=== PATIENT | female | born 1940 | race Caucasian/White ===

== ENCOUNTER 2016-11-13 11:26 | Emergency (ER) | payer MEDICARE ==
[2016-11-13 11:40] VITALS: TEMP 96.8
--- NOTE | 2016-11-13 12:02 | ED ---
Eye Problem HPI - General Chief complaint: Eye Problems Stated complaint: eye pain Time Seen by Provider: 11/13/16 11:55 Source: patient, RN notes reviewed Mode of arrival: ambulatory Limitations: no limitations - History of Present Illness Initial comments: 76-year-old female presented emergency department chief complaint bilateral eye irritation. Patient states that she feels irritation along the eyelids. She states that she's had no blurred vision no pain with ocular movements no pain of actual eye. She states she feels along the eyelids primarily. She has had blood work tearing, drainage. Patient states she's noticed some redness now. Patient states that she's been tried some Visine she gets a little relief but very minimal. Patient denies any new products denies any new soaps or lotions didn't any new makeup. - Related Data Previous Rx's Medication Instructions Recorded Tobramycin [Tobrex 0.3% Ophth Soln] 1 drop BOTH EYES Q4HR #5 ml 11/13/16 Allergies Allergy/AdvReac Type Severity Reaction Status Date / Time Penicillins Allergy Unknown Verified 11/13/16 11:41 propofol Allergy Unknown Verified 11/13/16 11:41 sulfamethoxazole Allergy Unknown Verified 11/13/16 11:41 [From Bactrim] trimethoprim [From Bactrim] Allergy Unknown Verified 11/13/16 11:41 Review of Systems ROS Statement: Those systems with pertinent positive or pertinent negative responses have been documented in the HPI. ROS Other: All systems not noted in ROS Statement are negative. Past Medical History Past Medical History: Heart Failure, Diabetes Mellitus, Hypertension, Myocardial Infarction ([place]) Additional Past Medical History / Comment(s): hypothyrodism, Kidney failure, neuropathy. History of Any Multi-Drug Resistant Organisms: None Reported Past Surgical History: Cholecystectomy, Tonsillectomy Additional Past Surgical History / Comment(s): Defibrillator, pacemaker Past Psychological History: No Psychological Hx Reported Smoking Status: Never smoker Past Alcohol Use History: None Reported Past Drug Use History: None Reported General Exam Limitations: no limitations General appearance: alert, in no apparent distress Head exam: Present: atraumatic, normocephalic, normal inspection Eye exam: Present: PERRL, EOMI, conjunctival injection (Minimal), other (Mild erythema of the eyelids). Absent: normal appearance, scleral icterus, periorbital swelling ENT exam: Present: normal exam, normal oropharynx, mucous membranes moist, TM's normal bilaterally, normal external ear exam Neck exam: Present: normal inspection, full ROM. Absent: tenderness, meningismus, lymphadenopathy Respiratory exam: Present: normal lung sounds bilaterally. Absent: respiratory distress, wheezes, rales, rhonchi, stridor Cardiovascular Exam: Present: regular rate, normal rhythm, normal heart sounds. Absent: systolic murmur, diastolic murmur, rubs, gallop, clicks Course Vital Signs 11/13/16 11:38 Temperature 96.8 F L Pulse Rate 65 Respiratory 16 Rate Blood Pressure 132/56 O2 Sat by Pulse 99 Oximetry Medical Decision Making - Medical Decision Making 76-year-old female presented emergency department for eye irritation. Patient does have mild or edema and injection. She's had no visual changes denies any ocular pain patient has good ocular movements. Patient will be discharged at this time and follow-up with engineering and development director. Disposition Clinical Impression: Bacterial conjunctivitis Disposition: HOME SELF-CARE Condition: Stable Instructions: Conjunctivitis (ED) Additional Instructions: Please return to the Emergency Department if symptoms worsen or any other concerns. Prescriptions: Tobramycin [Tobrex 0.3% Ophth Soln] 1 drop BOTH EYES Q4HR #5 ml Referrals: Giovanny Cesar MD [Primary Care Provider] - 1-2 days Bobby Jack MD [STAFF PHYSICIAN] - 1-2 days Time of Disposition: 12:02
[2016-11-13 12:25] VITALS: BP 138/68; PULSE 70; RESP 18
== END 2016-11-13 12:25 | disposition home or self-care (01) ==
LOC: EC 11:26
DX: H10.89 Other conjunctivitis (principal); Z88.0 Allergy status to penicillin; Z88.1 Allergy status to other antibiotic agents; Z88.2 Allergy status to sulfonamides; Z88.4 Allergy status to anesthetic agent
CPT/HCPCS: 99283

== ENCOUNTER → 2016-11-24 | Outpatient (CLI) | payer MEDICARE ==
--- NOTE | 2016-11-24 13:34 | US ---
EXAMINATION TYPE: US venous doppler duplex LE LT DATE OF EXAM: 11/24/2016 12:52 PM COMPARISON: NONE CLINICAL HISTORY: M79.662 Pain, R22.42 Swelling. Left leg pain/ Pt states history of PE and left leg DVT 2 yrs ago/ Pt currently on blood thinnners SIDE PERFORMED: Left VESSELS IMAGED: External Iliac Vein (EIV) Common Femoral Vein Deep Femoral Vein Greater Saphenous Vein * Femoral Vein Popliteal Vein Small Saphenous Vein * Proximal Calf Veins (* superficial vessels) TECHNOLOGIST IMPRESSION: wnl Left Leg: No evidence of acute DVT/ Chronic, non-occluding thrombus seen extending throughout left l eg/ Probable Ding's Cyst left pop fossa= 5.1 x0.9 x 2.0 cm Results called to Anika at 's office at time of exam IMPRESSION: 1. No deep venous thrombosis left lower extremity. 2. Popliteal cyst.
== END | disposition home or self-care (01) ==
LOC: RADUSWWP 12:20
PROVIDERS: ATTEND Internal Medicine
DX: M71.22 Synovial cyst of popliteal space [Baker], left knee (principal)

== ENCOUNTER 2017-04-23 15:04 | Inpatient (IN) | payer MEDICARE ==
[2017-04-23] MEDS ORDERED: NITROGLYCERIN OINT 1 INCH/GM PACKET TOPICAL STA (15:23)
[2017-04-23] MEDS ORDERED: ASPIRIN 81 MG CHEW PO STA (15:23)
--- NOTE | 2017-04-23 15:26 | ED ---
General Adult HPI - General Chief complaint: Chest Pain Stated complaint: Chest Pain Time Seen by Provider: 04/23/17 15:11 Source: patient, EMS, RN notes reviewed Mode of arrival: EMS Limitations: no limitations - History of Present Illness Initial comments: Patient is a pleasant 76-year-old female presenting to the emergency department complaining of chest discomfort. Symptoms have been present around 5 or 6 days. Patient had onset on Tuesday with vomiting. No nausea or vomiting since that time. On Tuesday patient did have some radiation towards her back. No radiation since that time. Discomfort is sternal and mild, currently rated 2/ 10. Discomfort feels like an ache. No associated dyspnea or diaphoresis. No leg pain or swelling. No cough or fever. Patient does have a history of previous cardiac problems. Patient has had CABG - Related Data Home Medications Medication Instructions Recorded Confirmed Allopurinol [Zyloprim] 300 mg PO DAILY 04/18/17 04/23/17 Apixaban [Eliquis] 5 mg PO BID 04/18/17 04/23/17 Aspirin [Adult Low Dose Aspirin EC] 81 mg PO DAILY 04/18/17 04/23/17 Atorvastatin [Lipitor] 40 mg PO HS 04/18/17 04/23/17 Furosemide [Lasix] 40 mg PO BID 04/18/17 04/23/17 HYDROcodone/APAP 7.5-325MG [[place] 1 tab PO TID PRN 04/18/17 04/23/17 7.5-325] Isosorbide Mononitrate ER [Imdur] 60 mg PO DAILY 04/18/17 04/23/17 Levothyroxine Sodium 25 mcg PO DAILY 04/18/17 04/23/17 Lisinopril [Zestril] 10 mg PO DAILY 04/18/17 04/23/17 Metoprolol Tartrate [Lopressor] 50 mg PO BID 04/18/17 04/23/17 Nitroglycerin Sl Tabs [Nitrostat] 0.4 mg SUBLINGUAL Q5M PRN 04/18/17 04/23/17 Omeprazole 20 mg PO DAILY 04/18/17 04/23/17 Pregabalin [Lyrica] 50 mg PO HS 04/18/17 04/23/17 glipiZIDE [Glucotrol] 5 mg PO BID 04/18/17 04/23/17 metFORMIN HCL [Glucophage] 500 mg PO BID 04/18/17 04/23/17 Allergies Allergy/AdvReac Type Severity Reaction Status Date / Time Penicillins Allergy Unknown Verified 04/23/17 15:48 propofol Allergy Unknown Verified 04/23/17 15:48 sulfamethoxazole Allergy Rash/Hives Verified 04/23/17 15:48 [From Bactrim] trimethoprim [From Bactrim] Allergy Rash/Hives Verified 04/23/17 15:48 Review of Systems ROS Statement: Those systems with pertinent positive or pertinent negative responses have been documented in the HPI. ROS Other: All systems not noted in ROS Statement are negative. Constitutional: Denies: fever Eyes: Denies: eye pain ENT: Denies: ear pain Respiratory: Denies: cough Cardiovascular: Reports: chest pain Endocrine: Denies: fatigue Gastrointestinal: Denies: abdominal pain Genitourinary: Denies: dysuria Musculoskeletal: Denies: arthralgia Skin: Denies: rash Past Medical History Past Medical History: Heart Failure, Diabetes Mellitus, Hypertension, Myocardial Infarction ([place]) Additional Past Medical History / Comment(s): hypothyrodism, Kidney failure, neuropathy. Last Myocardial Infarction Date:: 1994 History of Any Multi-Drug Resistant Organisms: None Reported Past Surgical History: Cholecystectomy, Coronary Bypass/CABG, Heart Catheterization With Stent, Pacemaker, Tonsillectomy Additional Past Surgical History / Comment(s): Defibrillator, pacemaker Past Anesthesia/Blood Transfusion Reactions: No Reported Reaction Additional Past Anesthesia/Blood Transfusion Reaction / Comment(s): allergic to propofol Date of Last Stent Placement:: 1994 Type of Cardiac Device: Permanent Pacemaker Device Placement Date:: 2011 Past Psychological History: No Psychological Hx Reported Smoking Status: Never smoker Past Alcohol Use History: None Reported Past Drug Use History: None Reported - Past Family History Mother Family Medical History: CVA/TIA Additional Family Medical History / Comment(s): at age 43 of a stroke Father Family Medical History: Diabetes Mellitus Additional Family Medical History / Comment(s): age 81 General Exam Limitations: no limitations General appearance: alert, in no apparent distress Head exam: Present: atraumatic Eye exam: Present: normal appearance, PERRL ENT exam: Present: normal oropharynx Neck exam: Present: normal inspection Respiratory exam: Present: normal lung sounds bilaterally. Absent: chest wall tenderness Cardiovascular Exam: Present: regular rate, normal rhythm Expanded Peripheral pulses: 2+: Radial (R), Radial (L), Posterior Tibialis (R), Posterior Tibialis (L) GI/Abdominal exam: Present: soft. Absent: tenderness Extremities exam: Present: normal inspection. Absent: pedal edema, calf tenderness Back exam: Present: normal inspection. Absent: tenderness Neurological exam: Present: alert Psychiatric exam: Present: normal affect, normal mood Skin exam: Present: normal color Course Vital Signs 04/23/17 04/23/17 04/23/17 15:06 15:19 16:19 Temperature 97.3 F L Pulse Rate 66 66 Pulse Rate [ 70 Right Radial] Respiratory 20 18 Rate Blood Pressure 129/64 111/56 O2 Sat by Pulse 100 98 Oximetry EKG Findings - EKG Comments: EKG Findings:: Sinus rhythm at 67. First-degree AV block AR of 260. QRS 116. QT 436. QTc 460. Normal axis. Septal Q waves. Nonspecific ST-T. Previous EKG reviewed dated November 112011. Medical Decision Making - Medical Decision Making Patient reevaluated and resting comfortably in bed. No discomfort at this time. Patient and family updated on results and plan. Case was discussed in detail with Dr. Harrington, who will admit for Dr. Cesar. - Lab Data Result diagrams: 04/23/17 15:22 04/23/17 15:22 Lab Results 04/23/17 04/23/17 04/23/17 Range/Units 15:22 15:22 15:22 WBC 9.0 (3.8-10.6) k/uL RBC 3.25 L (3.80-5.40) m/uL Hgb 10.9 L (11.4-16.0) gm/dL Hct 33.4 L (34.0-46.0) % MCV 102.9 H (80.0-100.0) fL MCH 33.5 (25.0-35.0) pg MCHC 32.5 (31.0-37.0) g/dL RDW 17.1 H (11.5-15.5) % Plt Count 148 L (150-450) k/uL Neutrophils % 78 % Lymphocytes % 14 % Monocytes % 4 % Eosinophils % 2 % Basophils % 0 % Neutrophils # 7.0 (1.3-7.7) k/uL Lymphocytes # 1.3 (1.0-4.8) k/uL Monocytes # 0.4 (0-1.0) k/uL Eosinophils # 0.1 (0-0.7) k/uL Basophils # 0.0 (0-0.2) k/uL Anisocytosis Slight Macrocytosis Moderate PT (9.0-12.0) sec INR (<1.2) APTT (22.0-30.0) sec D-Dimer (<0.60) mg/L FEU Sodium 143 (137-145) mmol/L Potassium 4.3 (3.5-5.1) mmol/L Chloride 108 H (98-107) mmol/L Carbon Dioxide 20 L (22-30) mmol/L Anion Gap 15 mmol/L BUN 49 H (7-17) mg/dL Creatinine 1.30 H (0.52-1.04) mg/dL Est GFR (MDRD) Af Amer 48 (>60 ml/min/1.73 sqM) Est GFR (MDRD) Non-Af 40 (>60 ml/min/1.73 sqM) Glucose 173 H (74-99) mg/dL Calcium 8.4 (8.4-10.2) mg/dL Magnesium 0.7 L* (1.6-2.3) mg/dL Total Bilirubin 0.7 (0.2-1.3) mg/dL AST 26 (14-36) U/L ALT 29 (9-52) U/L Alkaline Phosphatase 48 (38-126) U/L Total Creatine Kinase 47 (30-135) U/L CK-MB (CK-2) 1.0 (0.0-2.4) ng/mL CK-MB (CK-2) Rel Index 2.1 Troponin I <0.012 (0.000-0.034) ng/mL Total Protein 6.1 L (6.3-8.2) g/dL Albumin 3.6 (3.5-5.0) g/dL Amylase 67 (30-110) U/L Lipase 391 H (23-300) U/L 04/23/17 Range/Units 15:22 WBC (3.8-10.6) k/uL RBC (3.80-5.40) m/uL Hgb (11.4-16.0) gm/dL Hct (34.0-46.0) % MCV (80.0-100.0) fL MCH (25.0-35.0) pg MCHC (31.0-37.0) g/dL RDW (11.5-15.5) % Plt Count (150-450) k/uL Neutrophils % % Lymphocytes % % Monocytes % % Eosinophils % % Basophils % % Neutrophils # (1.3-7.7) k/uL Lymphocytes # (1.0-4.8) k/uL Monocytes # (0-1.0) k/uL Eosinophils # (0-0.7) k/uL Basophils # (0-0.2) k/uL Anisocytosis Macrocytosis PT 11.8 (9.0-12.0) sec INR 1.2 H (<1.2) APTT 24.4 (22.0-30.0) sec D-Dimer 0.42 (<0.60) mg/L FEU Sodium (137-145) mmol/L Potassium (3.5-5.1) mmol/L Chloride (98-107) mmol/L Carbon Dioxide (22-30) mmol/L Anion Gap mmol/L BUN (7-17) mg/dL Creatinine (0.52-1.04) mg/dL Est GFR (MDRD) Af Amer (>60 ml/min/1.73 sqM) Est GFR (MDRD) Non-Af (>60 ml/min/1.73 sqM) Glucose (74-99) mg/dL Calcium (8.4-10.2) mg/dL Magnesium (1.6-2.3) mg/dL Total Bilirubin (0.2-1.3) mg/dL AST (14-36) U/L ALT (9-52) U/L Alkaline Phosphatase (38-126) U/L Total Creatine Kinase (30-135) U/L CK-MB (CK-2) (0.0-2.4) ng/mL CK-MB (CK-2) Rel Index Troponin I (0.000-0.034) ng/mL Total Protein (6.3-8.2) g/dL Albumin (3.5-5.0) g/dL Amylase (30-110) U/L Lipase (23-300) U/L - Radiology Data Radiology results: image reviewed (Chest x-ray shows chronic changes without acute process.) Disposition Clinical Impression: Chest pain, Hypomagnesemia Disposition: ADMITTED IP TO THIS HOSP Referrals: Giovanny Cesar MD [Primary Care Provider] - 1-2 days Decision Time: 16:26
[2017-04-23 15:36] LABS: Anisocytosis Slight; Basophils % (A) 0 %; CH 34.1; CHCM 33.3; Eosinophils # (A) 0.1 k/uL (0-0.7); Eosinophils % (A) 2 %; HCT 33.4 % (34.0-46.0); HDW 3.35; HGB 10.9 gm/dL (11.4-16.0); Luc # (Auto) 0.18; Luc % (Auto) 2; Lymphocytes # (A) 1.3 k/uL (1.0-4.8); Lymphocytes % (A) 14 %; MCH 33.5 pg (25.0-35.0); MCHC 32.5 g/dL (31.0-37.0); MCV 102.9 fL (80.0-100.0); Macrocytosis Moderate; Mean Platelet Volume 8.1; Monocytes # (A) 0.4 k/uL (0-1.0); Monocytes % (A) 4 %; Neutrophils % (A) 78 %; RBC 3.25 m/uL (3.80-5.40); RDW 17.1 % (11.5-15.5); WBC (Perox) 9.39
[2017-04-23 15:47] LABS: Calcium 8.4 mg/dL (8.4-10.2); Potassium 4.3 mmol/L (3.5-5.1); Total Bilirubin 0.7 mg/dL (0.2-1.3); Total Protein 6.1 g/dL (6.3-8.2)
[2017-04-23 15:49] LABS: INR 1.2 (<1.2); Partial Thromboplastin Time 24.4 sec (22.0-30.0); Prothrombin Time 11.8 sec (9.0-12.0)
[2017-04-23] MEDS ORDERED: MAGNESIUM OXIDE 400 MG TAB PO STA (15:50)
[2017-04-23 15:53] LABS: Magnesium 0.7 mg/dL (1.6-2.3)
[2017-04-23 15:56] LABS: Creatine Kinase 47 U/L (30-135)
--- NOTE | 2017-04-23 15:57 | XR ---
EXAMINATION TYPE: XR chest 2V DATE OF EXAM: 04/23/2017 COMPARISON: Chest x-ray April 26, 2010. HISTORY: Left-sided chest pain. TECHNIQUE: Frontal and lateral views of the chest are obtained. FINDINGS: Post-CABG changes with mediastinal clips and sternal wires is redemonstrated. There is no f ocal air space opacity, pleural effusion, or pneumothorax seen. The cardiac silhouette size is enlar ged with atherosclerotic change in aortic knob. There is dual lead pacemaker/AICD. The osseous struc tures are demineralized. Multilevel spurring in the spine is redemonstrated. IMPRESSION: Chronic parenchymal changes and cardiomegaly without acute pulmonary process.
[2017-04-23 16:09] LABS: Troponin I <0.012 ng/mL (0.000-0.034)
[2017-04-23] MEDS: MAGNESIUM SULFATE-D5W PMX 1 GM in DEXTROSE/WATER 1 100ML.BAG IVPB SCH ×3 (16:14→18:47)
[2017-04-23] MEDS ORDERED: NITROGLYCERIN SL TABS 0.4 MG TAB SUBLINGUAL PRN (16:33)
[2017-04-23] MEDS: MAGNESIUM OXIDE 400 MG TAB PO SCH ×2 (16:43→21:24)
[2017-04-23 17:03] LABS: Glucose,Whole Blood 187 mg/dL (75-99)
[2017-04-23] MEDS: metFORMIN 500 MG TAB PO SCH (19:00)
[2017-04-23] MEDS: NITROGLYCERIN OINT 1 INCH/GM PACKET TOPICAL SCH (19:00)
[2017-04-23] MEDS: FUROSEMIDE 40 MG TAB PO SCH (19:00)
[2017-04-23] MEDS: glipiZIDE 5 MG TAB PO SCH (19:00)
[2017-04-23 21:07] LABS: Glucose,Whole Blood 140 mg/dL (75-99)
[2017-04-23] MEDS: APIXABAN 5 MG TAB PO SCH (21:24)
[2017-04-23] MEDS: ATORVASTATIN 40 MG TAB PO SCH (21:24)
[2017-04-23] MEDS: METOPROLOL TARTRATE 50 MG TAB PO SCH (21:24)
[2017-04-23 22:19] LABS: Troponin I 0.016 ng/mL (0.000-0.034)
[2017-04-24] MEDS: NITROGLYCERIN OINT 1 INCH/GM PACKET TOPICAL SCH ×4 (00:39→17:21)
[2017-04-24 04:16] LABS: Magnesium 1.5 mg/dL (1.6-2.3)
[2017-04-24 04:43] LABS: Creatine Kinase MB 0.8 ng/mL (0.0-2.4); Troponin I 0.015 ng/mL (0.000-0.034)
[2017-04-24] MEDS ORDERED: Magnesium Replacement Protocol 1 EACH MISC MISCELLANE PRN (05:11)
[2017-04-24] MEDS: MAGNESIUM SULFATE-D5W PMX 1 GM in DEXTROSE/WATER 1 100ML.BAG IVPB SCH ×2 (05:58→08:04)
[2017-04-24 06:18] LABS: Glucose,Whole Blood 97 mg/dL (75-99)
[2017-04-24] MEDS: glipiZIDE 5 MG TAB PO SCH ×2 (07:16→17:21)
[2017-04-24] MEDS: LEVOTHYROXINE 25 MCG TAB PO SCH (07:16)
[2017-04-24] MEDS: PANTOPRAZOLE 40 MG TABLET PO SCH (07:16)
[2017-04-24] MEDS: metFORMIN 500 MG TAB PO SCH (07:16)
[2017-04-24] MEDS: FUROSEMIDE 40 MG TAB PO SCH ×2 (08:42→15:42)
[2017-04-24] MEDS: MAGNESIUM OXIDE 400 MG TAB PO SCH ×3 (08:42→21:07)
[2017-04-24] MEDS: METOPROLOL TARTRATE 50 MG TAB PO SCH ×2 (08:42→21:07)
[2017-04-24] MEDS: APIXABAN 5 MG TAB PO SCH ×2 (08:42→21:07)
[2017-04-24] MEDS: ASPIRIN 325 MG TAB PO SCH (08:42)
[2017-04-24] MEDS: LISINOPRIL 5 MG TAB PO SCH (08:42)
[2017-04-24] MEDS ORDERED: ISOSORBIDE MONONITRATE ER 60 MG TAB.ER.24H PO SCH (09:00)
--- NOTE | 2017-04-24 11:31 | P.CRDCN ---
History of Present Illness Consult date: 04/24/17 Chief complaint: Chest pain History of present illness: This is a pleasant 76-year-old female patient who sees Dr. Wall as an outpatient with a known history of CAD and prior CABG as well as a stenting with unknown details at this point, ischemic cardiomyopathy, status post ICD, as well as multiple comorbidities, presented to the hospital complaining of chest discomfort. She was in her usual state of health to the last week when she experienced multiple episodes of vomiting. The following day she was having chest discomfort as a sharp kind of discomfort on the left side of the chest without any radiation to the arm or neck or shoulders and without any associated symptoms. She underwent an EKG which showed sinus rhythm with prior old anterior septal MT. The cardiac enzymes were checked and came in to be unremarkable. Past Medical History Past Medical History: Atrial Fibrillation, Heart Failure, Diabetes Mellitus, Hypertension, Myocardial Infarction ([place]) Additional Past Medical History / Comment(s): hypothyrodism, Kidney failure, neuropathy. Last Myocardial Infarction Date:: 1994 History of Any Multi-Drug Resistant Organisms: None Reported, MRSA Date of last positivie culture/infection: 2013 MDRO Source:: left leg Past Surgical History: Cholecystectomy, Coronary Bypass/CABG, Heart Catheterization With Stent, Pacemaker, Tonsillectomy Additional Past Surgical History / Comment(s): Defibrillator, pacemaker, breast reduction, varicous veins Past Anesthesia/Blood Transfusion Reactions: No Reported Reaction Additional Past Anesthesia/Blood Transfusion Reaction / Comment(s): allergic to propofol Date of Last Stent Placement:: 1994 Type of Cardiac Device: Permanent Pacemaker Device Placement Date:: 2011 Smoking Status: Never smoker - Past Family History Mother Family Medical History: CVA/TIA Additional Family Medical History / Comment(s): at age 43 of a stroke Father Family Medical History: Diabetes Mellitus Additional Family Medical History / Comment(s): age 81 Medications and Allergies Home Medications Medication Instructions Recorded Confirmed Type Allopurinol [Zyloprim] 300 mg PO DAILY 04/18/17 04/23/17 History Apixaban [Eliquis] 5 mg PO BID 04/18/17 04/23/17 History Aspirin [Adult Low Dose Aspirin EC] 81 mg PO DAILY 04/18/17 04/23/17 History Atorvastatin [Lipitor] 40 mg PO HS 04/18/17 04/23/17 History Furosemide [Lasix] 40 mg PO BID 04/18/17 04/23/17 History HYDROcodone/APAP 7.5-325MG [[place] 1 tab PO TID PRN 04/18/17 04/23/17 History 7.5-325] Isosorbide Mononitrate ER [Imdur] 60 mg PO DAILY 04/18/17 04/23/17 History Levothyroxine Sodium 25 mcg PO DAILY 04/18/17 04/23/17 History Lisinopril [Zestril] 10 mg PO DAILY 04/18/17 04/23/17 History Metoprolol Tartrate [Lopressor] 50 mg PO BID 04/18/17 04/23/17 History Nitroglycerin Sl Tabs [Nitrostat] 0.4 mg SUBLINGUAL Q5M PRN 04/18/17 04/23/17 History Omeprazole 20 mg PO DAILY 04/18/17 04/23/17 History Pregabalin [Lyrica] 50 mg PO HS 04/18/17 04/23/17 History glipiZIDE [Glucotrol] 5 mg PO BID 04/18/17 04/23/17 History metFORMIN HCL [Glucophage] 500 mg PO BID 04/18/17 04/23/17 History Allergies Allergy/AdvReac Type Severity Reaction Status Date / Time Penicillins Allergy Unknown Verified 04/23/17 15:48 propofol Allergy Unknown Verified 04/23/17 15:48 sulfamethoxazole Allergy Rash/Hives Verified 04/23/17 15:48 [From Bactrim] trimethoprim [From Bactrim] Allergy Rash/Hives Verified 04/23/17 15:48 Physical Exam Vitals: Vital Signs Temp Pulse Pulse Resp BP BP Pulse Ox 04/24/17 11:25 97.1 F L 65 20 121/80 98 04/24/17 08:00 96.8 F L 62 20 131/59 98 04/24/17 04:00 97.0 F L 68 16 109/60 100 04/24/17 00:00 97.4 F L 72 17 127/60 94 L 04/23/17 20:00 97.7 F 67 18 143/65 98 04/23/17 17:00 96.9 F L 71 20 124/59 99 04/23/17 16:19 66 18 111/56 98 04/23/17 15:19 70 08/05/17 15:06 97.3 F L 66 20 129/64 100 Intake and Output 04/23/17 04/24/17 04/24/17 22:59 06:59 14:59 Intake Total 0 580 Balance 0 580 Intake: Intake, IV Titration 100 Amount Magnesium Sulfate-D5w Pmx 100 1 gm In Dextrose/Water 1 100ml.bag @ 100 mls/hr IVPB Q1H CLAUDIO Rx#: [id number] Oral 0 480 Other: Voiding Method Toilet Toilet # Voids 1 2 Weight 150 kg 71.4 kg - Constitutional General appearance: no acute distress - Respiratory Respiratory: bilateral: diminished - Cardiovascular Rhythm: regular Heart sounds: normal: S1, S2 Results 04/23/17 15:22 04/23/17 15:22 Cardiac Enzymes 04/23/17 04/23/17 04/23/17 Range/Units 15:22 15:22 21:27 AST 26 (14-36) U/L CK-MB (CK-2) 1.0 1.0 (0.0-2.4) ng/mL Troponin I <0.012 0.016 (0.000-0.034) ng/mL 04/24/17 Range/Units 03:45 AST (14-36) U/L CK-MB (CK-2) 0.8 (0.0-2.4) ng/mL Troponin I 0.015 (0.000-0.034) ng/mL Coagulation 04/23/17 Range/Units 15:22 PT 11.8 (9.0-12.0) sec APTT 24.4 (22.0-30.0) sec Lipids 04/24/17 Range/Units 03:45 Triglycerides 131 (<150) mg/dL Cholesterol 84 (<200) mg/dL HDL Cholesterol 33 L (40-60) mg/dL CBC 04/23/17 Range/Units 15:22 WBC 9.0 (3.8-10.6) k/uL RBC 3.25 L (3.80-5.40) m/uL Hgb 10.9 L (11.4-16.0) gm/dL Hct 33.4 L (34.0-46.0) % Plt Count 148 L (150-450) k/uL Comprehensive Metabolic Panel 04/23/17 Range/Units 15:22 Sodium 143 (137-145) mmol/L Potassium 4.3 (3.5-5.1) mmol/L Chloride 108 H (98-107) mmol/L Carbon Dioxide 20 L (22-30) mmol/L BUN 49 H (7-17) mg/dL Creatinine 1.30 H (0.52-1.04) mg/dL Glucose 173 H (74-99) mg/dL Calcium 8.4 (8.4-10.2) mg/dL AST 26 (14-36) U/L ALT 29 (9-52) U/L Alkaline Phosphatase 48 (38-126) U/L Total Protein 6.1 L (6.3-8.2) g/dL Albumin 3.6 (3.5-5.0) g/dL Current Medications Generic Name Dose Route Start Last Admin Trade Name Freq PRN Reason Stop Dose Admin Apixaban 5 mg 04/23/17 21:00 04/24/17 08:42 Eliquis PO 5 mg BID CLAUDIO Administration Aspirin 325 mg 04/24/17 09:00 04/24/17 08:42 Aspirin PO 325 mg DAILY CLAUDIO Administration Atorvastatin Calcium 40 mg 04/23/17 21:00 04/23/17 21:24 Lipitor PO 40 mg HS CLAUDIO Administration Furosemide 40 mg 04/23/17 18:00 04/24/17 08:42 Lasix PO 40 mg BID@0900,1600 CLAUDIO Administration Glipizide 5 mg 04/23/17 17:30 04/24/17 07:16 Glucotrol PO 5 mg AC-BID CLAUDIO Administration Levothyroxine Sodium 25 mcg 04/24/17 06:30 04/24/17 07:16 Synthroid PO 25 mcg DAILY@0630 CLAUDIO Administration Lisinopril 10 mg 04/24/17 09:00 04/24/17 08:42 Zestril PO 10 mg DAILY CLAUDIO Administration Magnesium Oxide 400 mg 04/23/17 16:00 04/24/17 08:42 Mag-Ox PO 400 mg TID CLAUDIO Administration Metformin HCl 500 mg 04/23/17 17:30 04/24/17 07:16 Glucophage PO 500 mg BID-W/MEALS CLAUDIO Administration Metoprolol Tartrate 50 mg 04/23/17 21:00 04/24/17 08:42 Lopressor PO 50 mg BID CLAUDIO Administration Miscellaneous Information 1 each 04/24/17 05:11 Magnesium Per Protocol MISCELLANE DAILY PRN Per Protocol Protocol Nitroglycerin 1 inch 04/23/17 18:00 04/24/17 06:25 Nitro-Bid Oint TOPICAL 1 inch Q6HR CLAUDIO Administration Nitroglycerin 0.4 mg 04/23/17 16:33 Nitrostat SUBLINGUAL Q5M PRN Chest Pain Pantoprazole Sodium 40 mg 04/24/17 07:30 04/24/17 07:16 Protonix PO 40 mg AC-BRKFST CLAUDIO Administration Intake and Output 04/23/17 04/24/17 04/24/17 22:59 06:59 14:59 Intake Total 0 580 Balance 0 580 Intake: Intake, IV Titration 100 Amount Magnesium Sulfate-D5w Pmx 100 1 gm In Dextrose/Water 1 100ml.bag @ 100 mls/hr IVPB Q1H CLAUDIO Rx#: [id number] Oral 0 480 Other: Voiding Method Toilet Toilet # Voids 1 2 Weight 150 kg 71.4 kg 04/23/17 15:22 04/23/17 15:22 Assessment and Plan Plan: This is a pleasant 76-year-old female patient with a known CAD and prior revascularization who presented to the hospital was atypical chest discomfort. She was ruled out for acute coronary event. I'm going to obtain a stress test and echocardiogram and follow-up with her.
[2017-04-24 12:24] LABS: Glucose,Whole Blood 136 mg/dL (75-99)
--- NOTE | 2017-04-24 17:09 | P.HPIM ---
History of Present Illness H&P Date: 04/24/17 Chief Complaint: Chest pain This is a 76-year-old female with past medical history noted below who presented to the emergency room with worsening chest pain. Patient said that her symptoms started approximately 5 days ago and is being getting progressively worse. Her symptoms started originally with worsening nausea and vomiting. Patient said that after she vomited 2 or 3 times she started having discomfort in the midsternal area. There was no radiation for her pain. She described her pain as achy in nature. No diaphoresis or dizziness associated. She is currently in sinus rhythm. She is chest pain-free. She was seen and evaluated by cardiology. Review of Systems Review of system: 14 points review of systems were obtained and were negative except to what were mentioned in the HPI. Past Medical History Past Medical History: Atrial Fibrillation, Heart Failure, Diabetes Mellitus, Hypertension, Myocardial Infarction ([place]) Additional Past Medical History / Comment(s): hypothyrodism, Kidney failure, neuropathy. Last Myocardial Infarction Date:: 1994 History of Any Multi-Drug Resistant Organisms: None Reported, MRSA Date of last positivie culture/infection: 2013 MDRO Source:: left leg Past Surgical History: Cholecystectomy, Coronary Bypass/CABG, Heart Catheterization With Stent, Pacemaker, Tonsillectomy Additional Past Surgical History / Comment(s): Defibrillator, pacemaker, breast reduction, varicous veins Past Anesthesia/Blood Transfusion Reactions: No Reported Reaction Additional Past Anesthesia/Blood Transfusion Reaction / Comment(s): allergic to propofol Date of Last Stent Placement:: 1994 Type of Cardiac Device: Permanent Pacemaker Device Placement Date:: 2011 Smoking Status: Never smoker - Past Family History Mother Family Medical History: CVA/TIA Additional Family Medical History / Comment(s): at age 43 of a stroke Father Family Medical History: Diabetes Mellitus Additional Family Medical History / Comment(s): age 81 Medications and Allergies Home Medications Medication Instructions Recorded Confirmed Type Allopurinol [Zyloprim] 300 mg PO DAILY 04/18/17 04/23/17 History Apixaban [Eliquis] 5 mg PO BID 04/18/17 04/23/17 History Aspirin [Adult Low Dose Aspirin EC] 81 mg PO DAILY 04/18/17 04/23/17 History Atorvastatin [Lipitor] 40 mg PO HS 04/18/17 04/23/17 History Furosemide [Lasix] 40 mg PO BID 04/18/17 04/23/17 History HYDROcodone/APAP 7.5-325MG [[place] 1 tab PO TID PRN 04/18/17 04/23/17 History 7.5-325] Isosorbide Mononitrate ER [Imdur] 60 mg PO DAILY 04/18/17 04/23/17 History Levothyroxine Sodium 25 mcg PO DAILY 04/18/17 04/23/17 History Lisinopril [Zestril] 10 mg PO DAILY 04/18/17 04/23/17 History Metoprolol Tartrate [Lopressor] 50 mg PO BID 04/18/17 04/23/17 History Nitroglycerin Sl Tabs [Nitrostat] 0.4 mg SUBLINGUAL Q5M PRN 04/18/17 04/23/17 History Omeprazole 20 mg PO DAILY 04/18/17 04/23/17 History Pregabalin [Lyrica] 50 mg PO HS 04/18/17 04/23/17 History glipiZIDE [Glucotrol] 5 mg PO BID 04/18/17 04/23/17 History metFORMIN HCL [Glucophage] 500 mg PO BID 04/18/17 04/23/17 History Allergies Allergy/AdvReac Type Severity Reaction Status Date / Time Penicillins Allergy Unknown Verified 04/23/17 15:48 propofol Allergy Unknown Verified 04/23/17 15:48 sulfamethoxazole Allergy Rash/Hives Verified 04/23/17 15:48 [From Bactrim] trimethoprim [From Bactrim] Allergy Rash/Hives Verified 04/23/17 15:48 Physical Exam Vitals: Vital Signs Temp Pulse Resp BP Pulse Ox 04/24/17 15:19 96.8 F L 63 20 120/61 97 04/24/17 11:25 97.1 F L 65 20 121/80 98 04/24/17 08:00 96.8 F L 62 20 131/59 98 04/24/17 04:00 97.0 F L 68 16 109/60 100 04/24/17 00:00 97.4 F L 72 17 127/60 94 L 04/23/17 20:00 97.7 F 67 18 143/65 98 Intake and Output 04/24/17 04/24/17 04/24/17 06:59 14:59 22:59 Intake Total 580 455 Balance 580 455 Intake: Intake, IV Titration 100 100 Amount Magnesium Sulfate-D5w Pmx 100 1 gm In Dextrose/Water 1 100ml.bag @ 100 mls/hr IVPB Q1H CLAUDIO Rx#: [id number] Magnesium Sulfate-D5w Pmx 100 1 gm In Dextrose/Water 1 100ml.bag @ 100 mls/hr IVPB Q1H CLAUDIO Rx#: [id number] Oral 480 355 Other: Voiding Method Toilet # Voids 2 Weight 71.4 kg General: The patient is awake and alert, in no distress Eye: there is normal conjunctiva bilaterally. Neck: The neck is supple, there is no JVD. Cardiovascular: Normal S1-S2, no S3-S4, no murmurs. Respiratory: Lungs clear to auscultation bilaterally Gastrointestinal: Abdomen is soft, nontender Musculoskeletal: There is no pedal edema. Neurological:. Speech is normal. Skin: Skin is warm and dry Results CBC & Chem 7: 04/23/17 15:22 04/23/17 15:22 Labs: Abnormal Lab Results - Last 24 Hours (Table) 04/23/17 04/24/17 04/24/17 Range/Units 20:56 03:45 12:06 POC Glucose (mg/dL) 140 H 136 H (75-99) mg/dL Magnesium 1.5 L (1.6-2.3) mg/dL HDL Cholesterol 33 L (40-60) mg/dL Thrombosis Risk Factor Assmnt - Choose All That Apply Each Risk Factor Represents 3 Points: Age 75 years or older Thrombosis Risk Factor Assessment Total Risk Factor Score: 3 Thrombosis Risk Factor Assessment Level: Moderate Risk Assessment and Plan Plan: 1. Chest pain, with typical and atypical features. 12 leads EKG with no acute ischemic changes. Troponin negative 2 sets. Patient was seen and evaluated by cardiology. Plan for stress test in the morning. 2. Coronary artery disease with prior history of CABG 3. Nonischemic cardiomyopathy status post ICD implantation 4. Essential hypertension, blood pressure well-controlled 5. Mixed hyperlipidemia, cholesterol level at goal. 6. Hypomagnesemia, currently being replaced. Today, I reviewed her medication list and lab work results. Continue current regimen. I would continue to follow up on her closely. Repeat lab work in the morning.
[2017-04-24 17:13] LABS: Glucose,Whole Blood 154 mg/dL (75-99)
[2017-04-24] MEDS: HYDROcodone/APAP 7.5-325MG 1 EACH TAB PO PRN (17:39)
[2017-04-24] MEDS: ATORVASTATIN 40 MG TAB PO SCH (21:07)
[2017-04-24 21:19] LABS: Glucose,Whole Blood 286 mg/dL (75-99)
[2017-04-25] MEDS: NITROGLYCERIN OINT 1 INCH/GM PACKET TOPICAL SCH ×4 (01:09→17:06)
[2017-04-25] MEDS: HYDROcodone/APAP 7.5-325MG 1 EACH TAB PO PRN ×3 (02:21→17:04)
[2017-04-25 05:39] LABS: Glucose,Whole Blood 128 mg/dL (75-99)
[2017-04-25 06:48] VITALS: RESP 16
[2017-04-25 06:50] LABS: Anisocytosis Slight; Basophils % (A) 1 %; CH 33.7; CHCM 33.4; Eosinophils # (A) 0.2 k/uL (0-0.7); Eosinophils % (A) 3 %; HCT 30.6 % (34.0-46.0); HDW 3.34; HGB 10.1 gm/dL (11.4-16.0); Luc # (Auto) 0.15; Luc % (Auto) 3; Lymphocytes # (A) 1.1 k/uL (1.0-4.8); Lymphocytes % (A) 19 %; MCH 33.7 pg (25.0-35.0); MCHC 33.1 g/dL (31.0-37.0); MCV 101.7 fL (80.0-100.0); Macrocytosis Slight; Mean Platelet Volume 7.3; Monocytes # (A) 0.4 k/uL (0-1.0); Monocytes % (A) 6 %; Neutrophils # (A) 4.1 k/uL (1.3-7.7); Neutrophils % (A) 69 %; RBC 3.01 m/uL (3.80-5.40); RDW 16.6 % (11.5-15.5); WBC (Perox) 6.54
[2017-04-25 07:13] LABS: Anion Gap 13 mmol/L; Blood Urea Nitrogen 44 mg/dL (7-17); Calcium 8.9 mg/dL (8.4-10.2); Carbon Dioxide 26 mmol/L (22-30); Chloride 105 mmol/L (98-107); Glucose 104 mg/dL (74-99); Magnesium 1.7 mg/dL (1.6-2.3); Non-African American GFR(MDRD) 54 (>60 ml/min/1.73 sqM); Potassium 3.8 mmol/L (3.5-5.1); Sodium 144 mmol/L (137-145)
[2017-04-25] MEDS ORDERED: REGADENOSON 0.4 MG/5 ML SYRINGE IV ONE (09:00)
[2017-04-25] MEDS ORDERED: AMINOPHYLLINE 500 MG/20 ML VIAL IV PRN (09:00)
--- NOTE | 2017-04-25 10:31 | NM ---
EXAMINATION TYPE: NM stress lexiscan cardiolite DATE OF EXAM: 04/25/2017 COMPARISON: NONE HISTORY: Chest pain TECHNIQUE: After the intravenous administration of 10.11 mCi Tc 99m Sestamibi - Cardiolite resting S PECT images acquired 80 minutes post injection. The patient received 0.4mg Lexiscan, 26.5 mCi Tc 99m Sestamibi - Stress images obtained [address] injection FINDINGS: Review of stress and rest SPECT images demonstrates fixed defect involving the inferior lateral myoca rdium with a degree of reversibility suspected. Area of stress-induced reversibility involving the ap ical septal portion myocardium also suggested.. Gated analysis shows an estimated left ventricular ejection fraction of 26 %. IMPRESSION: 1. Findings suspicious for stress-induced ischemia involving the apical septum and inferolateral myoc ardium. 2. Ejection fraction only 26%. A [place] message has been communicated to Sylvester Beth MD~[id number] via the [employer] system on 04/25/2017 10:28 AM, Message ID [id number].
[2017-04-25] MEDS: LISINOPRIL 5 MG TAB PO SCH (10:33)
[2017-04-25] MEDS: MAGNESIUM OXIDE 400 MG TAB PO SCH ×2 (10:33→17:06)
[2017-04-25] MEDS: ASPIRIN 325 MG TAB PO SCH (10:33)
[2017-04-25] MEDS: APIXABAN 5 MG TAB PO SCH (10:33)
[2017-04-25] MEDS: LEVOTHYROXINE 25 MCG TAB PO SCH (10:33)
[2017-04-25] MEDS: PANTOPRAZOLE 40 MG TABLET PO SCH (10:33)
[2017-04-25] MEDS: glipiZIDE 5 MG TAB PO SCH ×2 (10:34→17:06)
[2017-04-25] MEDS: METOPROLOL TARTRATE 50 MG TAB PO SCH (10:34)
[2017-04-25] MEDS: FUROSEMIDE 40 MG TAB PO SCH ×2 (10:34→17:06)
[2017-04-25 11:45] VITALS: BP 111/55; PULSE 53; TEMP 96.7
[2017-04-25 12:02] LABS: Glucose,Whole Blood 234 mg/dL (75-99)
--- NOTE | 2017-04-25 12:13 | ECHOF ---
Referral Reason:CAD/ CP MEASUREMENTS -------- HEIGHT: 157.5 cm WEIGHT: 72.1 kg BP: 107/53 IVSd: 1.0 cm (0.6 - 1.1) LVIDd: 6.3 cm (3.9 - 5.3) LVPWd: 1.1 cm (0.6 - 1.1) IVSs: 1.1 cm LVIDs: 5.7 cm LVPWs: 0.9 cm Ao Diam: 3.6 cm (2.0 - 3.7) AV Cusp: 2.2 cm (1.5 - 2.6) LA Diam: 4.7 cm (2.7 - 3.8) MV EXCURSION: 13.536 mm (> 18.000) MV EF SLOPE: 49 mm/s (70 - 150) EPSS: 1.7 cm MV E Sumit: 0.83 m/s MV DecT: 174 ms MV A Sumit: 0.69 m/s MV E/A Ratio: 1.19 RAP: 5.00 mmHg RVSP: 16.18 mmHg FINDINGS -------- AICD This was a technically difficult study with suboptimal apical views. The left ventricle is severely dilated. Left ventricular wall thickness is normal. There is severe global hypokinesis of LV . Overall left ventricular systolic function is severely impaired with, an EF between 20 - 25 %. Mitral Doppler inflow pattern suggests diastolic filling abnormality 13.00. The right ventricle is normal in size and function. The left atrium is moderately dilated. The right atrium is normal in size. Cannot exclude shunt in the intratrial septum. Dropout seen. Aortic valve is trileaflet and is mildly thickened. The mitral valve leaflets are mildly thickened. Mild mitral annular calcification present. Mild mitral regurgitation is present. Trace tricuspid regurgitation present. The right ventricular systolic pressure, as measured by Doppler, is 16.18mmHg. Pulmonic valve appears structurally normal. The aortic root size is normal. The pericardium is normal. CONCLUSIONS -------- 1. AICD 2. The right atrium is normal in size. 3. Cannot exclude shunt in the intratrial septum. Dropout seen. 4. Aortic valve is trileaflet and is mildly thickened. 5. The mitral valve leaflets are mildly thickened. 6. Mild mitral annular calcification present. 7. Mild mitral regurgitation is present. 8. Trace tricuspid regurgitation present. 9. The right ventricular systolic pressure, as measured by Doppler, is 16.18mmHg. 10. Pulmonic valve appears structurally normal. 11. The aortic root size is normal. 12. This was a technically difficult study with suboptimal apical views. 13. The pericardium is normal. 14. The left ventricle is severely dilated. 15. Left ventricular wall thickness is normal. 16. There is severe global hypokinesis of LV . 17. Overall left ventricular systolic function is severely impaired with, an EF between 20 - 25 %. 18. Mitral Doppler inflow pattern suggest diastolic filling abnormality 13.00. 19. The right ventricle is normal in size and function. 20. The left atrium is moderately dilated. COMPUTER NETWORKING INSTRUCTOR: Maira Aguilar RDCS
--- NOTE | 2017-04-25 12:29 | P.PN ---
Subjective This is a 76-year-old female with past medical history noted below who presented to the emergency room with worsening chest pain. Patient said that her symptoms started approximately 5 days ago and is being getting progressively worse. Her symptoms started originally with worsening nausea and vomiting. Patient said that after she vomited 2 or 3 times she started having discomfort in the midsternal area. There was no radiation for her pain. She described her pain as achy in nature. No diaphoresis or dizziness associated. She is currently in sinus rhythm. She is chest pain-free. She was seen and evaluated by cardiology. Patient underwent stress test and echocardiogram today. Stress test was abnormal. Report states findings are suspicious for stress-induced ischemia involving the apical septum and inferolateral myocardium. EF only 26%. Patient is currently chest pain-free. However she is complaining of upper back pain and left shoulder discomfort. Nausea and vomiting have resolved. Denies any shortness of breath. Objective - Vital Signs Vital signs: Vital Signs Temp 96.7 F L 04/25/17 08:00 Pulse 53 L 04/25/17 08:00 Resp 16 04/25/17 08:00 BP 111/55 04/25/17 08:00 Pulse Ox 99 04/25/17 08:00 Intake & Output 04/24/17 04/25/17 04/25/17 18:59 06:59 18:59 Intake Total 455 Balance 455 Weight 72.4 kg Intake: Intake, IV Titration 100 Amount Magnesium Sulfate-D5w Pmx 100 1 gm In Dextrose/Water 1 100ml.bag @ 100 mls/hr IVPB Q1H CLAUDIO Rx#: [id number] Oral 355 Other: Voiding Method Toilet # Voids 3 - Exam Head normocephalic Neck supple Lungs clear to auscultation bilaterally no wheezing or crackles Heart regular rate and rhythm S1-S2, no rub or gallop Abdomen is soft nontender nondistended positive bowel sounds no hepatosplenomegaly Extremities no edema lower extremities. Upper extremity some limited range of motion noted in the shoulder Neuro alert and orientated to 3 - Labs CBC & Chem 7: 04/25/17 05:42 04/25/17 05:42 Labs: Abnormal Lab Results - Last 24 Hours (Table) 04/24/17 04/24/17 04/24/17 Range/Units 12:06 16:48 21:17 RBC (3.80-5.40) m/uL Hgb (11.4-16.0) gm/dL Hct (34.0-46.0) % MCV (80.0-100.0) fL RDW (11.5-15.5) % Plt Count (150-450) k/uL BUN (7-17) mg/dL Glucose (74-99) mg/dL POC Glucose (mg/dL) 136 H 154 H 286 H (75-99) mg/dL 04/25/17 04/25/17 04/25/17 Range/Units 05:37 05:42 05:42 RBC 3.01 L (3.80-5.40) m/uL Hgb 10.1 L (11.4-16.0) gm/dL Hct 30.6 L (34.0-46.0) % MCV 101.7 H (80.0-100.0) fL RDW 16.6 H (11.5-15.5) % Plt Count 144 L (150-450) k/uL BUN 44 H (7-17) mg/dL Glucose 104 H (74-99) mg/dL POC Glucose (mg/dL) 128 H (75-99) mg/dL 04/25/17 Range/Units 11:58 RBC (3.80-5.40) m/uL Hgb (11.4-16.0) gm/dL Hct (34.0-46.0) % MCV (80.0-100.0) fL RDW (11.5-15.5) % Plt Count (150-450) k/uL BUN (7-17) mg/dL Glucose (74-99) mg/dL POC Glucose (mg/dL) 234 H (75-99) mg/dL Assessment and Plan Plan: 1. Chest pain: Abnormal stress test with results showing suspicious for stress- induced ischemia involving the apical septum and inferolateral myocardium. Echo report shows an EF of 20-25%. Severe global hypokinesis of LV. We'll await further recommendations per cardiology. EKG showed no acute ischemic changes. Troponins are negative 3 sets. 2. Coronary artery disease with prior history of CABG 3. Nonischemic cardiomyopathy status post ICD implantation 4. Essential hypertension, blood pressure well-controlled 5. Mixed hyperlipidemia, cholesterol level at goal. 6. Hypomagnesemia, currently being replaced oral magnesium. Check magnesium level in a.m. 7. Paroxysmal atrial fibrillation: Devin Mora I performed an examination of the patient and discussed their management with the physician Health Analyst. I have reviewed the Physician Health Analyst's notes and agree with the documented findings and plan of care
--- NOTE | 2017-04-25 14:16 | P.DS ---
Providers Date of admission: 04/23/17 16:33 Expected date of discharge: 04/25/17 Attending physician: Giovanny Cesar Consults: 04/23/17 16:33 Consult Physician Urgent Consulting Provider: Chip Bradley Consult Reason/Comments: cp Do you want consulting provider notified?: Yes Primary care physician: Giovanny Tali [facility] Course: Discharge diagnosis 1. Chest pain: Abnormal stress test with results showing suspicious for stress- induced ischemia involving the apical septum and inferolateral myocardium. Echo report shows an EF of 20-25%. Severe global hypokinesis of LV. EKG showed no acute ischemic changes. Troponins are negative 3 sets. Patient is now chest pain-free. She has been seen evaluated by cardiology. Case discussed with cardiology regarding stress test results. They have cleared patient for discharge. Patient will follow-up with Dr. Wall in the office in one week 2. Coronary artery disease with prior history of CABG 3. Nonischemic cardiomyopathy status post ICD implantation 4. Essential hypertension, blood pressure well-controlled 5. Mixed hyperlipidemia, cholesterol level at goal. 6. Hypomagnesemia, currently being replaced oral magnesium. Magnesium level has shown improvement it's at 1.7 at discharge. She did receive 2 doses of oral magnesium today. And will have patient have a repeat magnesium level in 1 week. Hypomagnesemia likely related to her vomiting as well as diuretics 7. Paroxysmal atrial fibrillation: Continue [facility] course This is a 76-year-old female with past medical history noted below who presented to the emergency room with worsening chest pain. Patient said that her symptoms started approximately 5 days ago and is being getting progressively worse. Her symptoms started originally with worsening nausea and vomiting. Patient said that after she vomited 2 or 3 times she started having discomfort in the midsternal area. There was no radiation for her pain. She described her pain as achy in nature. No diaphoresis or dizziness associated. She is currently in sinus rhythm. She is chest pain-free. She was seen and evaluated by cardiology. Patient underwent stress test and echocardiogram today. Stress test was abnormal. Report states findings are suspicious for stress-induced ischemia involving the apical septum and inferolateral myocardium. EF only 26%. Echo results as stated above. Patient is currently chest pain-free and has had no further episodes of nausea or vomiting. Case was discussed with Dr. Leah Redmond N.P. Who had discussed the case with Dr. Sanchez and Dr. Wall. Dr. Wall knows this patient well and is recommending her to be discharged and he will follow up with her in the office. Patient's symptoms have improved. Cardiology is cleared patient for discharge. There is no evidence of an acute ID. Patient is medically stable for discharge. Please refer to chart for any further details. Check magnesium level in 1 week I performed an examination of the patient and discussed their management with the physician Automatic Fabric Cutter. I have reviewed the Physician Automatic Fabric Cutter's notes and agree with the documented findings and plan of care Patient Condition at Discharge: Stable Plan - Discharge Summary New Discharge Prescriptions: Continue Omeprazole 20 mg PO DAILY HYDROcodone/APAP 7.5-325MG [[place] 7.5-325] 1 tab PO TID PRN PRN Reason: Pain Nitroglycerin Sl Tabs [Nitrostat] 0.4 mg SUBLINGUAL Q5M PRN PRN Reason: Chest Pain metFORMIN HCL [Glucophage] 500 mg PO BID Metoprolol Tartrate [Lopressor] 50 mg PO BID Pregabalin [Lyrica] 50 mg PO HS Lisinopril [Zestril] 10 mg PO DAILY Levothyroxine Sodium 25 mcg PO DAILY glipiZIDE [Glucotrol] 5 mg PO BID Isosorbide Mononitrate ER [Imdur] 60 mg PO DAILY Furosemide [Lasix] 40 mg PO BID Apixaban [Eliquis] 5 mg PO BID Atorvastatin [Lipitor] 40 mg PO HS Aspirin [Adult Low Dose Aspirin EC] 81 mg PO DAILY Allopurinol [Zyloprim] 300 mg PO DAILY Discharge Medication List Allopurinol [Zyloprim] 300 mg PO DAILY 04/18/17 [History] Apixaban [Eliquis] 5 mg PO BID 04/18/17 [History] Aspirin [Adult Low Dose Aspirin EC] 81 mg PO DAILY 04/18/17 [History] Atorvastatin [Lipitor] 40 mg PO HS 04/18/17 [History] Furosemide [Lasix] 40 mg PO BID 04/18/17 [History] HYDROcodone/APAP 7.5-325MG [[place] 7.5-325] 1 tab PO TID PRN 04/18/17 [History] Isosorbide Mononitrate ER [Imdur] 60 mg PO DAILY 04/18/17 [History] Levothyroxine Sodium 25 mcg PO DAILY 04/18/17 [History] Lisinopril [Zestril] 10 mg PO DAILY 04/18/17 [History] Metoprolol Tartrate [Lopressor] 50 mg PO BID 04/18/17 [History] Nitroglycerin Sl Tabs [Nitrostat] 0.4 mg SUBLINGUAL Q5M PRN 04/18/17 [History] Omeprazole 20 mg PO DAILY 04/18/17 [History] Pregabalin [Lyrica] 50 mg PO HS 04/18/17 [History] glipiZIDE [Glucotrol] 5 mg PO BID 04/18/17 [History] metFORMIN HCL [Glucophage] 500 mg PO BID 04/18/17 [History] Follow up Appointment(s)/Referral(s): Giovanny Cesar MD [Primary Care Provider] - 1 Week Tita Wall MD [STAFF PHYSICIAN] - 1 Week Activity/Diet/Wound Care/Special Instructions: Diet: cardiac, diabetic Activity: as tolerated check Mg level in 1 week Discharge Disposition: HOME SELF-CARE
--- NOTE | 2017-04-25 15:03 | P.PN ---
Subjective Principal diagnosis: Chest pain This is a pleasant 76-year-old female who follows regularly with Dr. Wall in the office. She has a known history of coronary artery disease with prior bypass surgery and stent placement, ischemic myopathy with prior AICD, diabetes, hypertension, paroxysmal atrial fibrillation, hypothyroidism. She presented to the hospital with symptoms of chest discomfort and was recommended today to undergo a stress test. Nuha scan stress test was performed, and findings were suspicious for stress-induced ischemia involving the apical septum and inferior lateral myocardium. Ejection fraction 26%. These results were discussed with Dr. Sanchez and Dr. Wall, recommendation was to treat the patient medically, make a follow-up appointment with Dr. Wall in the office post discharge. Objective - Vital Signs Vital signs: Vital Signs Temp 96.7 F L 04/25/17 08:00 Pulse 53 L 04/25/17 08:00 Resp 16 04/25/17 12:00 BP 111/55 04/25/17 08:00 Pulse Ox 99 04/25/17 08:00 Intake & Output 04/24/17 04/25/17 04/25/17 18:59 06:59 18:59 Intake Total 455 Balance 455 Weight 72.4 kg Intake: Intake, IV Titration 100 Amount Magnesium Sulfate-D5w Pmx 100 1 gm In Dextrose/Water 1 100ml.bag @ 100 mls/hr IVPB Q1H CLAUDIO Rx#: [id number] Oral 355 Other: Voiding Method Toilet # Voids 3 0 - Exam PHYSICAL EXAMINATION: HEENT: Head is atraumatic, normocephalic. Pupils equal, round. Neck is supple. There is no elevated jugular venous pressure. HEART EXAMINATION: Heart S1, S2 normal. No murmur or gallop heard. CHEST EXAMINATION: Lungs are clear to auscultation and precussion. No chest wall tenderness is noted on palpation or with deep breathing. ABDOMEN: Soft, nontender. Bowel sounds are heard. No organomegaly noted. EXTREMITIES: 2+ peripheral pulses with no evidence of peripheral edema and no calf tenderness noted. NEUROLOGIC patient is awake, alert and oriented -3. . - Labs CBC & Chem 7: 04/25/17 05:42 04/25/17 05:42 Labs: Abnormal Lab Results - Last 24 Hours (Table) 04/24/17 04/24/17 04/25/17 Range/Units 16:48 21:17 05:37 RBC (3.80-5.40) m/uL Hgb (11.4-16.0) gm/dL Hct (34.0-46.0) % MCV (80.0-100.0) fL RDW (11.5-15.5) % Plt Count (150-450) k/uL BUN (7-17) mg/dL Glucose (74-99) mg/dL POC Glucose (mg/dL) 154 H 286 H 128 H (75-99) mg/dL 04/25/17 04/25/17 04/25/17 Range/Units 05:42 05:42 11:58 RBC 3.01 L (3.80-5.40) m/uL Hgb 10.1 L (11.4-16.0) gm/dL Hct 30.6 L (34.0-46.0) % MCV 101.7 H (80.0-100.0) fL RDW 16.6 H (11.5-15.5) % Plt Count 144 L (150-450) k/uL BUN 44 H (7-17) mg/dL Glucose 104 H (74-99) mg/dL POC Glucose (mg/dL) 234 H (75-99) mg/dL Assessment and Plan (1) CAD (coronary artery disease) Status: Acute (2) Hx of CABG Status: Acute (3) Ischemic cardiomyopathy Status: Acute (4) AICD (automatic cardioverter/defibrillator) present Status: Acute (5) HTN (hypertension) Status: Acute (6) Hyperlipemia Status: Acute (7) Diabetes Status: Acute (8) Hypothyroid Status: Acute (9) Chest pain Status: Acute Plan: Stress test findings were discussed in detail by Dr. Sanchez with Dr. Wall, recommendation made to continue medical therapy. Discharge patient home today and follow-up with Dr. Wall in the office next week. DNP note has been reviewed, I agree with a documented findings and plan of care. Patient was seen and examined.
--- NOTE | 2017-04-25 17:07 | P.STRESS ---
- Stress Test Note Stress Test Results/Findings: Exam Performed: NM stress lexiscan cardiolite Exam Date: 04/25/17 Reason for Exam: CP Height: 5 ft 2 in Weight: 72.4 kg Protocol: Lexiscan Stage: N/A Duration of Exercise: N/A Resting Heart Rate: 59 Resting Blood Pressure: 112/67 Maximum Achieved Heart Rate: 70 Maximum Achieved Blood Pressure: 112/67 85% PMHR: N/A 100% PMHR: N/A METS: N/A Technologist Comment: Stress Test Results/Findings: Patient was given Lexiscan injection over a period of 15 seconds resting EKG shows atrial paced rhythm with a ventricular capture L PVCs were noted. On specific ST-T changes were noted. The results of the nuclear study will follow.
== END 2017-04-25 17:45 | disposition home or self-care (01) | DRG 313 ==
LOC: EC 15:04 → 6SEL 16:33
PROVIDERS: ADMIT Internal Medicine; ATTEND Internal Medicine
DX: R07.9 Chest pain, unspecified (principal); I25.2 Old myocardial infarction; I11.0 Hypertensive heart disease with heart failure; I50.9 Heart failure, unspecified; E11.40 Type 2 diabetes mellitus with diabetic neuropathy, unspecified; E83.42 Hypomagnesemia; I25.5 Ischemic cardiomyopathy; I48.0 Paroxysmal atrial fibrillation; I25.10 Atherosclerotic heart disease of native coronary artery without angina pectoris; E78.2 Mixed hyperlipidemia; E03.9 Hypothyroidism, unspecified; Z79.01 Long term (current) use of anticoagulants; Z79.82 Long term (current) use of aspirin; Z79.84 Long term (current) use of oral hypoglycemic drugs; Z79.899 Other long term (current) drug therapy; Z95.1 Presence of aortocoronary bypass graft; Z95.810 Presence of automatic (implantable) cardiac defibrillator; Z95.5 Presence of coronary angioplasty implant and graft; Z90.49 Acquired absence of other specified parts of digestive tract; Z88.0 Allergy status to penicillin; Z88.2 Allergy status to sulfonamides; Z88.8 Allergy status to other drugs, medicaments and biological substances
CPT/HCPCS: 36415; 71020; 78452; 80048; 80053; 80061; 82150; 82550; 82553; 83690; 83735; 84484; 85025; 85379; 85610; 85730; 93005; 93017; 93306; 96365; 99285

== ENCOUNTER 2017-05-21 23:42 | Inpatient (IN) | payer MEDICARE ==
--- NOTE | 2017-05-21 23:44 | ED ---
General Adult HPI - General Stated complaint: Chest Pain Time Seen by Provider: 05/21/17 23:44 Source: RN notes reviewed, old records reviewed - History of Present Illness Initial comments: This is a 76-year-old female here for evaluation. Patient does present today for evaluation of chest pain. Patient has history of heart attack A. fib diabetes hypertension. Patient also complains of nausea vomiting diarrhea, fever. [place]. Patient awoke sleeved thought she was going to a hospital with chest pain. Patient woke up and she was in her bed. Is admitted for nausea vomiting diarrhea for the last 2 days denies abdominal pain. At this point she is without chest pain will she is mildly anxious, no shortness of breath, or cough - Related Data Home Medications Medication Instructions Recorded Confirmed Allopurinol [Zyloprim] 300 mg PO DAILY 04/18/17 05/22/17 Apixaban [Eliquis] 5 mg PO BID 04/18/17 05/22/17 Aspirin [Adult Low Dose Aspirin EC] 81 mg PO DAILY 04/18/17 05/22/17 Atorvastatin [Lipitor] 40 mg PO HS 04/18/17 05/22/17 Furosemide [Lasix] 40 mg PO HS 04/18/17 05/22/17 HYDROcodone/APAP 7.5-325MG [[place] 1 tab PO Q6H PRN 04/18/17 05/22/17 7.5-325] Isosorbide Mononitrate ER [Imdur] 60 mg PO DAILY 04/18/17 05/22/17 Levothyroxine Sodium 25 mcg PO DAILY 04/18/17 05/22/17 Lisinopril [Zestril] 10 mg PO DAILY 04/18/17 05/22/17 Metoprolol Tartrate [Lopressor] 50 mg PO BID 04/18/17 05/22/17 Nitroglycerin Sl Tabs [Nitrostat] 0.4 mg SUBLINGUAL Q5M PRN 04/18/17 05/22/17 Omeprazole 20 mg PO DAILY 04/18/17 05/22/17 Pregabalin [Lyrica] 75 mg PO HS 04/18/17 05/22/17 glipiZIDE [Glucotrol] 5 mg PO BID 04/18/17 05/22/17 Furosemide [Lasix] 80 mg PO DAILY 05/22/17 05/22/17 Magnesium Oxide [Mag-Ox] 400 mg PO BID 05/22/17 05/22/17 metFORMIN HCL ER [Glucophage Xr] 500 mg PO BID 05/22/17 05/22/17 Allergies Allergy/AdvReac Type Severity Reaction Status Date / Time Penicillins Allergy Rash/Hives Verified 05/22/17 08:26 propofol Allergy Unknown Verified 05/22/17 08:26 sulfamethoxazole AdvReac Abdominal Verified 05/22/17 08:26 [From Bactrim] Pain trimethoprim [From Bactrim] AdvReac Abdominal Verified 05/22/17 08:26 Pain Review of Systems ROS Statement: Those systems with pertinent positive or pertinent negative responses have been documented in the HPI. ROS Other: All systems not noted in ROS Statement are negative. Past Medical History Past Medical History: Atrial Fibrillation, Heart Failure, Diabetes Mellitus, Hypertension, Myocardial Infarction ([place]) Additional Past Medical History / Comment(s): hypothyrodism, Kidney failure, neuropathy. Last Myocardial Infarction Date:: 1994 History of Any Multi-Drug Resistant Organisms: None Reported, MRSA Date of last positivie culture/infection: 2013 MDRO Source:: left leg Past Surgical History: Cholecystectomy, Coronary Bypass/CABG, Heart Catheterization With Stent, Pacemaker, Tonsillectomy Additional Past Surgical History / Comment(s): Defibrillator, pacemaker, breast reduction, varicous veins Past Anesthesia/Blood Transfusion Reactions: No Reported Reaction Additional Past Anesthesia/Blood Transfusion Reaction / Comment(s): allergic to propofol Date of Last Stent Placement:: 1994 Type of Cardiac Device: Permanent Pacemaker Device Placement Date:: 2011 Smoking Status: Never smoker - Past Family History Mother Family Medical History: CVA/TIA Additional Family Medical History / Comment(s): at age 43 of a stroke Father Family Medical History: Diabetes Mellitus Additional Family Medical History / Comment(s): age 81 General Exam General appearance: alert, in no apparent distress Head exam: Present: atraumatic, normocephalic, normal inspection Eye exam: Present: normal appearance, PERRL, EOMI. Absent: scleral icterus, conjunctival injection, periorbital swelling ENT exam: Present: normal exam, mucous membranes moist Neck exam: Present: normal inspection. Absent: tenderness, meningismus, lymphadenopathy Respiratory exam: Present: normal lung sounds bilaterally. Absent: respiratory distress, wheezes, rales, rhonchi, stridor Cardiovascular Exam: Present: regular rate, normal rhythm, normal heart sounds. Absent: systolic murmur, diastolic murmur, rubs, gallop, clicks GI/Abdominal exam: Present: soft, normal bowel sounds. Absent: distended, tenderness, guarding, rebound, rigid Extremities exam: Present: normal inspection, full ROM, normal capillary refill. Absent: tenderness, pedal edema, joint swelling, calf tenderness Back exam: Present: normal inspection Neurological exam: Present: alert, oriented X3, CN II-XII intact Psychiatric exam: Present: normal affect, normal mood Skin exam: Present: warm, dry, intact, normal color. Absent: rash Course Vital Signs 05/22/17 05/22/17 00:07 00:58 Temperature 100.6 F H Pulse Rate 93 71 Respiratory 16 20 Rate Blood Pressure 97/74 85/51 O2 Sat by Pulse 94 L 96 Oximetry - Reevaluation(s) Reevaluation #1: 05/22/17 00:50 Patient's chart was thoroughly reviewed cluing prior hospital admission Reevaluation #2: 05/22/17 00:50 Patient is feeling improved with symptomatic therapy EKG Findings - EKG Comments: EKG Findings:: EKG shows sinus rhythm at a rate 8, pO2 28, QRS 1:30, QTC 508 Medical Decision Making - Medical Decision Making 77 female the year with chest pain. Nausea vomiting and gastroenteritis. Patient be admitted for further evaluation, resuscitation - Lab Data Result diagrams: 05/26/17 06:04 05/26/17 06:04 - Radiology Data Radiology results: report reviewed (Chest x-ray is unchanged), image reviewed Disposition Clinical Impression: Gastroenteritis, Chest pain, Fever, Nausea & vomiting Disposition: ADMITTED IP TO THIS [facility] Condition: Fair
[2017-05-21] MEDS ORDERED: NITROGLYCERIN SL TABS 0.4 MG TAB SUBLINGUAL PRN (23:45)
[2017-05-21] MEDS ORDERED: MORPHINE SULFATE 4 MG/ML SYRINGE IV PRN (23:45)
[2017-05-22] MEDS ORDERED: ACETAMINOPHEN IV (For NPO) 1,000 MG in EMPTY BAG 1 BAG IVPB STA (00:04)
[2017-05-22] MEDS ORDERED: ONDANSETRON 4 MG/2 ML VIAL IVP STA (00:04)
[2017-05-22] MEDS ORDERED: LEVOFLOXACIN 750MG-D5W PMX 750 MG in DEXTROSE/WATER 1 150ML.BAG IVPB STA (00:17)
[2017-05-22 00:27] LABS: Anisocytosis Slight; Basophils % (A) 0 %; CH 33.8; CHCM 33.5; Eosinophils # (A) 0.1 k/uL (0-0.7); Eosinophils % (A) 0 %; HCT 33.6 % (34.0-46.0); HDW 3.46; HGB 11.1 gm/dL (11.4-16.0); Luc % (Auto) 1; Lymphocytes # (A) 0.6 k/uL (1.0-4.8); Lymphocytes % (A) 3 %; MCH 33.6 pg (25.0-35.0); MCHC 33.1 g/dL (31.0-37.0); MCV 101.5 fL (80.0-100.0); Macrocytosis Slight; Mean Platelet Volume 8.8; Monocytes # (A) 0.7 k/uL (0-1.0); Monocytes % (A) 4 %; Neutrophils # (A) 15.4 k/uL (1.3-7.7); Neutrophils % (A) 91 %; Poikilocytosis Slight; RBC 3.31 m/uL (3.80-5.40); WBC 16.9 k/uL (3.8-10.6); WBC (Perox) 17.79
[2017-05-22 00:42] LABS: Calcium 8.8 mg/dL (8.4-10.2); Magnesium 1.1 mg/dL (1.6-2.3); Phosphorous 3.3 mg/dL (2.5-4.5); Total Bilirubin 1.7 mg/dL (0.2-1.3); Total Protein 6.8 g/dL (6.3-8.2)
[2017-05-22 00:43] LABS: Potassium 5.7 mmol/L (3.5-5.1)
[2017-05-22 00:45] LABS: INR 1.1 (<1.2); Prothrombin Time 11.3 sec (9.0-12.0)
[2017-05-22 00:54] LABS: Partial Thromboplastin Time 21.3 sec (22.0-30.0)
[2017-05-22 01:00] LABS: Creatine Kinase MB 1.4 ng/mL (0.0-2.4)
[2017-05-22 01:11] LABS: Troponin I 0.102 ng/mL (0.000-0.034)
[2017-05-22 01:32] LABS: Glucose,Whole Blood 326 mg/dL (75-99)
--- NOTE | 2017-05-22 01:46 | XR ---
PROCEDURE: FILM CXR 2 VIEWS HISTORY: 77-year-old female with chest pain. COMPARISON: Chest radiograph 04/23/2017 TECHNIQUE: Frontal and lateral views of the chest were obtained. FINDINGS: Cardiomediastinal silhouette is stable. Dual-lead pacemaker-defibrillator, similar to prior. Low lung volumes. Bibasilar atelectasis/consolidation. Postoperative changes of median sternotomy. IMPRESSION: Bibasilar atelectasis/consolidation.
[2017-05-22] MEDS: MAGNESIUM SULFATE-D5W PMX 1 GM in DEXTROSE/WATER 1 100ML.BAG IVPB SCH ×4 (02:42→06:00)
[2017-05-22 06:03] LABS: Glucose,Whole Blood 385 mg/dL (75-99)
[2017-05-22 06:32] LABS: Cholesterol 110 mg/dL (<200); HDL Cholesterol 47 mg/dL (40-60)
[2017-05-22 06:33] LABS: Appearance,Urine Cloudy (Clear); Bacteria,Urine Rare /hpf; Bilirubin,Urine Negative (Negative); Glucose,Urine (UA) Trace (Negative); Ketones,Urine Trace (Negative); Leukocyte Esterase,Urine Large (Negative); Mucus,Urine Rare /hpf; Nitrite,Urine Negative (Negative); PH, Urine 5.5 (5.0-8.0); Particle Count 58146; Protein,Urine Trace (Negative); RBC,Urine 1 /hpf (0-5); Specific Gravity,Urine 1.013 (1.001-1.035); Squamous Epithelial Cell,Urine 5 /hpf (0-4); UA Billing (MACRO vs. MICRO) MICRO; Urobilinogen,Urine <2.0 mg/dL (<2.0); WBC,Urine 180 /hpf (0-5)
[2017-05-22] MEDS: INSULIN LISPRO (humaLOG) 300 UNIT/3 ML VIAL SQ SCH ×4 (06:56→21:05)
[2017-05-22 08:01] LABS: Creatine Kinase MB 16.8 ng/mL (0.0-2.4)
[2017-05-22] MEDS ORDERED: ASPIRIN 325 MG TAB PO SCH (09:00)
[2017-05-22 11:50] LABS: Glucose,Whole Blood 366 mg/dL (75-99)
[2017-05-22 12:23] LABS: Creatine Kinase MB 18.8 ng/mL (0.0-2.4); Troponin I 5.61 ng/mL (0.000-0.034)
[2017-05-22] MEDS ORDERED: Potassium Replacement Protocol 1 EACH MISC MISCELLANE PRN (12:27)
[2017-05-22] MEDS ORDERED: Magnesium Replacement Protocol 1 EACH MISC MISCELLANE PRN (12:27)
[2017-05-22] MEDS ORDERED: ONDANSETRON 4 MG/2 ML VIAL IVP PRN (12:29)
[2017-05-22] MEDS ORDERED: PANTOPRAZOLE 40 MG/10 ML VIAL IVP SCH (12:30)
[2017-05-22] MEDS ORDERED: SODIUM POLYSTYRENE SULFONATE 15 GM/60 ML BOTTLE PO STA (12:31)
[2017-05-22] MEDS: HYDROcodone/APAP 7.5-325MG 1 EACH TAB PO PRN ×2 (12:34→21:06)
--- NOTE | 2017-05-22 13:30 | P.HPIM ---
History of Present Illness H&P Date: 05/22/17 Chief Complaint: Chest pain This is a 76-year-old female with past medical history noted below significant for coronary artery disease with underlying ischemic cardiomyopathy who presented to the hospital with chest pain. Patient said that her pain started all of a sudden yesterday morning and she described it as mild chart discomfort in the middle of her chest. She is rating her pain as 3 out of 10 in severity. There is no radiation of her pain. She reports feeling lightheaded but no nausea or palpitation. No shortness of breath. She presented to the emergency room and initial 12 leads EKG showed no acute ischemic changes. Troponin level peaked to above 11. Patient is normally on anticoagulation at home with Eliquis. She is not having any chest pain at this time. Review of Systems Review of system: 14 points review of systems were obtained and were negative except to what were mentioned in the HPI. Past Medical History Past Medical History: Atrial Fibrillation, Heart Failure, Diabetes Mellitus, Hypertension, Myocardial Infarction ([place]) Additional Past Medical History / Comment(s): hypothyroidism, Kidney failure, neuropathy. Last Myocardial Infarction Date:: 1994 History of Any Multi-Drug Resistant Organisms: MRSA Date of last positivie culture/infection: 2013 MDRO Source:: left leg Past Surgical History: Cholecystectomy, Coronary Bypass/CABG, Heart Catheterization With Stent, Pacemaker, Tonsillectomy Additional Past Surgical History / Comment(s): Defibrillator, pacemaker, breast reduction, varicous veins Past Anesthesia/Blood Transfusion Reactions: No Reported Reaction Additional Past Anesthesia/Blood Transfusion Reaction / Comment(s): allergic to propofol Date of Last Stent Placement:: 1994 Type of Cardiac Device: Permanent Pacemaker Device Placement Date:: 2011 Past Psychological History: No Psychological Hx Reported Smoking Status: Never smoker Past Alcohol Use History: None Reported Past Drug Use History: None Reported - Past Family History Mother Family Medical History: CVA/TIA Additional Family Medical History / Comment(s): at age 43 of a stroke Father Family Medical History: Diabetes Mellitus Additional Family Medical History / Comment(s): age 81 Medications and Allergies Home Medications Medication Instructions Recorded Confirmed Type Allopurinol [Zyloprim] 300 mg PO DAILY 04/18/17 05/22/17 History Apixaban [Eliquis] 5 mg PO BID 04/18/17 05/22/17 History Aspirin [Adult Low Dose Aspirin EC] 81 mg PO DAILY 04/18/17 05/22/17 History Atorvastatin [Lipitor] 40 mg PO HS 04/18/17 05/22/17 History Furosemide [Lasix] 40 mg PO HS 04/18/17 05/22/17 History HYDROcodone/APAP 7.5-325MG [[place] 1 tab PO Q6H PRN 04/18/17 05/22/17 History 7.5-325] Isosorbide Mononitrate ER [Imdur] 60 mg PO DAILY 04/18/17 05/22/17 History Levothyroxine Sodium 25 mcg PO DAILY 04/18/17 05/22/17 History Lisinopril [Zestril] 10 mg PO DAILY 04/18/17 05/22/17 History Metoprolol Tartrate [Lopressor] 50 mg PO BID 04/18/17 05/22/17 History Nitroglycerin Sl Tabs [Nitrostat] 0.4 mg SUBLINGUAL Q5M PRN 04/18/17 05/22/17 History Omeprazole 20 mg PO DAILY 04/18/17 05/22/17 History Pregabalin [Lyrica] 75 mg PO HS 04/18/17 05/22/17 History glipiZIDE [Glucotrol] 5 mg PO BID 04/18/17 05/22/17 History Furosemide [Lasix] 80 mg PO DAILY 05/22/17 05/22/17 History Magnesium Oxide [Mag-Ox] 400 mg PO BID 05/22/17 05/22/17 History metFORMIN HCL ER [Glucophage Xr] 500 mg PO BID 05/22/17 05/22/17 History Allergies Allergy/AdvReac Type Severity Reaction Status Date / Time Penicillins Allergy Rash/Hives Verified 05/22/17 08:26 propofol Allergy Unknown Verified 05/22/17 08:26 sulfamethoxazole AdvReac Abdominal Verified 05/22/17 08:26 [From Bactrim] Pain trimethoprim [From Bactrim] AdvReac Abdominal Verified 05/22/17 08:26 Pain Physical Exam Vitals: Vital Signs Temp Pulse Pulse Resp BP BP Pulse Ox 05/22/17 08:55 96 05/22/17 08:00 64 18 105/54 98 05/22/17 04:00 98.9 F 60 18 93/46 96 05/22/17 01:50 98.7 F 60 18 91/50 97 05/22/17 01:20 98.7 F 60 18 91/50 97 05/22/17 00:58 71 20 85/51 96 05/22/17 00:07 100.6 F H 93 16 97/74 94 L Intake and Output 05/21/17 05/22/17 05/22/17 22:59 06:59 14:59 Intake Total 120 Balance 120 Intake: Oral 120 Other: # Voids 2 # Bowel Movements 0 Weight 43.5 kg 43.5 kg Patient Weight 05/23/17 06:59 Weight 43.5 kg General: The patient is awake and alert, in no distress Eye: there is normal conjunctiva bilaterally. Neck: The neck is supple, there is no JVD. Cardiovascular: Normal S1-S2, no S3-S4, no murmurs. Respiratory: Lungs clear to auscultation bilaterally Gastrointestinal: Abdomen is soft, nontender Musculoskeletal: There is no pedal edema. Neurological:. Speech is normal. Skin: Skin is warm and dry Results CBC & Chem 7: 05/22/17 00:10 05/22/17 00:10 Labs: Abnormal Lab Results - Last 24 Hours (Table) 05/22/17 05/22/17 05/22/17 Range/Units 00:10 00:10 00:10 WBC 16.9 H (3.8-10.6) k/uL RBC 3.31 L (3.80-5.40) m/uL Hgb 11.1 L (11.4-16.0) gm/dL Hct 33.6 L (34.0-46.0) % MCV 101.5 H (80.0-100.0) fL RDW 17.0 H (11.5-15.5) % Neutrophils # 15.4 H (1.3-7.7) k/uL Lymphocytes # 0.6 L (1.0-4.8) k/uL APTT (22.0-30.0) sec D-Dimer (<0.60) mg/L FEU Sodium 135 L (137-145) mmol/L Potassium 5.7 H (3.5-5.1) mmol/L Carbon Dioxide 19 L (22-30) mmol/L BUN 40 H (7-17) mg/dL Creatinine 1.30 H (0.52-1.04) mg/dL Glucose 321 H (74-99) mg/dL POC Glucose (mg/dL) (75-99) mg/dL Magnesium 1.1 L (1.6-2.3) mg/dL Total Bilirubin 1.7 H (0.2-1.3) mg/dL AST 48 H (14-36) U/L Total Creatine Kinase 144 H (30-135) U/L CK-MB (CK-2) (0.0-2.4) ng/mL Troponin I 0.102 H* (0.000-0.034) ng/mL Urine Appearance (Clear) Urine Protein (Negative) Urine Glucose (UA) (Negative) Urine Ketones (Negative) Ur Leukocyte Esterase (Negative) Urine WBC (0-5) /hpf Urine WBC Clumps (None) /hpf Ur Squamous Epith Cells (0-4) /hpf Urine Bacteria (None) /hpf Urine Mucus (None) /hpf 05/22/17 05/22/17 05/22/17 Range/Units 00:10 01:31 04:15 WBC (3.8-10.6) k/uL RBC (3.80-5.40) m/uL Hgb (11.4-16.0) gm/dL Hct (34.0-46.0) % MCV (80.0-100.0) fL RDW (11.5-15.5) % Neutrophils # (1.3-7.7) k/uL Lymphocytes # (1.0-4.8) k/uL APTT 21.3 L (22.0-30.0) sec D-Dimer 1.23 H (<0.60) mg/L FEU Sodium (137-145) mmol/L Potassium (3.5-5.1) mmol/L Carbon Dioxide (22-30) mmol/L BUN (7-17) mg/dL Creatinine (0.52-1.04) mg/dL Glucose (74-99) mg/dL POC Glucose (mg/dL) 326 H (75-99) mg/dL Magnesium (1.6-2.3) mg/dL Total Bilirubin (0.2-1.3) mg/dL AST (14-36) U/L Total Creatine Kinase (30-135) U/L CK-MB (CK-2) (0.0-2.4) ng/mL Troponin I (0.000-0.034) ng/mL Urine Appearance Cloudy H (Clear) Urine Protein Trace H (Negative) Urine Glucose (UA) Trace H (Negative) Urine Ketones Trace H (Negative) Ur Leukocyte Esterase Large H (Negative) Urine WBC 180 H (0-5) /hpf Urine WBC Clumps Occasional H (None) /hpf Ur Squamous Epith Cells 5 H (0-4) /hpf Urine Bacteria Rare H (None) /hpf Urine Mucus Rare H (None) /hpf 05/22/17 05/22/17 05/22/17 Range/Units 06:02 06:02 11:31 WBC (3.8-10.6) k/uL RBC (3.80-5.40) m/uL Hgb (11.4-16.0) gm/dL Hct (34.0-46.0) % MCV (80.0-100.0) fL RDW (11.5-15.5) % Neutrophils # (1.3-7.7) k/uL Lymphocytes # (1.0-4.8) k/uL APTT (22.0-30.0) sec D-Dimer (<0.60) mg/L FEU Sodium (137-145) mmol/L Potassium (3.5-5.1) mmol/L Carbon Dioxide (22-30) mmol/L BUN (7-17) mg/dL Creatinine (0.52-1.04) mg/dL Glucose (74-99) mg/dL POC Glucose (mg/dL) 385 H (75-99) mg/dL Magnesium (1.6-2.3) mg/dL Total Bilirubin (0.2-1.3) mg/dL AST (14-36) U/L Total Creatine Kinase 569 H 635 H (30-135) U/L CK-MB (CK-2) 16.8 H* 18.8 H* (0.0-2.4) ng/mL Troponin I 11.000 H* 5.610 H* (0.000-0.034) ng/mL Urine Appearance (Clear) Urine Protein (Negative) Urine Glucose (UA) (Negative) Urine Ketones (Negative) Ur Leukocyte Esterase (Negative) Urine WBC (0-5) /hpf Urine WBC Clumps (None) /hpf Ur Squamous Epith Cells (0-4) /hpf Urine Bacteria (None) /hpf Urine Mucus (None) /hpf 05/22/17 Range/Units 11:41 WBC (3.8-10.6) k/uL RBC (3.80-5.40) m/uL Hgb (11.4-16.0) gm/dL Hct (34.0-46.0) % MCV (80.0-100.0) fL RDW (11.5-15.5) % Neutrophils # (1.3-7.7) k/uL Lymphocytes # (1.0-4.8) k/uL APTT (22.0-30.0) sec D-Dimer (<0.60) mg/L FEU Sodium (137-145) mmol/L Potassium (3.5-5.1) mmol/L Carbon Dioxide (22-30) mmol/L BUN (7-17) mg/dL Creatinine (0.52-1.04) mg/dL Glucose (74-99) mg/dL POC Glucose (mg/dL) 366 H (75-99) mg/dL Magnesium (1.6-2.3) mg/dL Total Bilirubin (0.2-1.3) mg/dL AST (14-36) U/L Total Creatine Kinase (30-135) U/L CK-MB (CK-2) (0.0-2.4) ng/mL Troponin I (0.000-0.034) ng/mL Urine Appearance (Clear) Urine Protein (Negative) Urine Glucose (UA) (Negative) Urine Ketones (Negative) Ur Leukocyte Esterase (Negative) Urine WBC (0-5) /hpf Urine WBC Clumps (None) /hpf Ur Squamous Epith Cells (0-4) /hpf Urine Bacteria (None) /hpf Urine Mucus (None) /hpf Thrombosis Risk Factor Assmnt - Choose All That Apply Each Risk Factor Represents 3 Points: Age 75 years or older Thrombosis Risk Factor Assessment Total Risk Factor Score: 3 Thrombosis Risk Factor Assessment Level: Moderate Risk Assessment and Plan Plan: 1. Acute non-ST elevation myocardial infarction 2. History of coronary artery disease with prior stent placement 3. Underlying ischemic cardiomyopathy with known EF of 20% currently compensated 4. Essential hypertension: Blood pressure well-controlled 5. Type 2 diabetes mellitus hold oral agents and continue sliding scale insulin 6. Paroxysmal atrial fibrillation on anticoagulation with Eliquis 7. Mixed hyperlipidemia 8. Mild acute kidney injury, will hold nephrotoxic Today, I reviewed her medication list on lab work results. Continue optimal medical management. Patient was seen and evaluated by cardiology. Echocardiogram ordered. Possible left heart catheterization on Tuesday. Continue supportive care otherwise. Repeat lab work in the morning.
[2017-05-22 14:16] LABS: Hemoglobin A1C 7.3 % (4.2-6.1)
--- NOTE | 2017-05-22 15:16 | P.CRDCN ---
History of Present Illness History of present illness: Patient presented with chest discomfort she also complained of nausea vomiting diarrhea and fever. Medication list was reviewed and is documented in the chart Review of systems: Complained of fever, no chills or rigors, no cough, phlegm or expectoration, complained of nausea, vomiting or diarrhea, no hematuria, dysuria, no musculoskeletal complaints, no strokes or seizures, no skin lesions. Past medical history of atrial fibrillation heart failure diabetes hypertension [place] hypothyroidism kidney failure and neuropathy and MRSA History of coronary artery bypass grafting cardiac catheterization coronary stenting, ICD implant Never smoker On examination Temperature 100.6 upon admission pulse rate in the 90s respirations 16 blood pressure initially was 97/74 mmHg breath sounds are reduced bilaterally no rhonchi no crackles, abdomen soft nontender extremities warm no edema heart sounds are soft and normal S1 normal S2 Labs are reviewed and the white count has shown an increase, it is almost doubled since yesterday. Neutrophil count is doubled since yesterday. Impression Known coronary artery disease with a positive stress test 2 weeks back. Patient was admitted to the hospital here and discharged after positive stress test with the decision for medical treatment Ischemic cardio myopathy severe LV dysfunction Admitted with chest discomfort Positive cardiac enzymes, non-Q-wave myocardial infarction Abnormal ECG Diabetes On appropriate medical treatment, guideline directed, for coronary artery disease and ischemic cardio myopathy in heart failure Significant increase in white count and neutrophil count, yesterday she had hypomagnesemia, today she has hyperkalemia with a mild increase in BUN and creatinine Complained of fever upon admission Looks comfortable at this time lying flat in bed no respiratory distress no chest discomfort Plan Medical treatment for coronary artery disease and non-Q-wave myocardial infarction To be discussed with Dr. Dr. Wall on Tuesday regarding further management Management of elevated white count/source of infection/hyperkalemia/diabetes per admitting physicians Hold lisinopril See rest of the dictation Past Medical History Past Medical History: Atrial Fibrillation, Heart Failure, Diabetes Mellitus, Hypertension, Myocardial Infarction ([place]) Additional Past Medical History / Comment(s): hypothyroidism, Kidney failure, neuropathy. Last Myocardial Infarction Date:: 1994 History of Any Multi-Drug Resistant Organisms: MRSA Date of last positivie culture/infection: 2013 MDRO Source:: left leg Past Surgical History: Cholecystectomy, Coronary Bypass/CABG, Heart Catheterization With Stent, Pacemaker, Tonsillectomy Additional Past Surgical History / Comment(s): Defibrillator, pacemaker, breast reduction, varicous veins Past Anesthesia/Blood Transfusion Reactions: No Reported Reaction Additional Past Anesthesia/Blood Transfusion Reaction / Comment(s): allergic to propofol Date of Last Stent Placement:: 1994 Type of Cardiac Device: Permanent Pacemaker Device Placement Date:: 2011 Past Psychological History: No Psychological Hx Reported Smoking Status: Never smoker Past Alcohol Use History: None Reported Past Drug Use History: None Reported - Past Family History Mother Family Medical History: CVA/TIA Additional Family Medical History / Comment(s): at age 43 of a stroke Father Family Medical History: Diabetes Mellitus Additional Family Medical History / Comment(s): age 81 Medications and Allergies Home Medications Medication Instructions Recorded Confirmed Type Allopurinol [Zyloprim] 300 mg PO DAILY 04/18/17 05/22/17 History Apixaban [Eliquis] 5 mg PO BID 04/18/17 05/22/17 History Aspirin [Adult Low Dose Aspirin EC] 81 mg PO DAILY 04/18/17 05/22/17 History Atorvastatin [Lipitor] 40 mg PO HS 04/18/17 05/22/17 History Furosemide [Lasix] 40 mg PO HS 04/18/17 05/22/17 History HYDROcodone/APAP 7.5-325MG [[place] 1 tab PO Q6H PRN 04/18/17 05/22/17 History 7.5-325] Isosorbide Mononitrate ER [Imdur] 60 mg PO DAILY 04/18/17 05/22/17 History Levothyroxine Sodium 25 mcg PO DAILY 04/18/17 05/22/17 History Lisinopril [Zestril] 10 mg PO DAILY 04/18/17 05/22/17 History Metoprolol Tartrate [Lopressor] 50 mg PO BID 04/18/17 05/22/17 History Nitroglycerin Sl Tabs [Nitrostat] 0.4 mg SUBLINGUAL Q5M PRN 04/18/17 05/22/17 History Omeprazole 20 mg PO DAILY 04/18/17 05/22/17 History Pregabalin [Lyrica] 75 mg PO HS 04/18/17 05/22/17 History glipiZIDE [Glucotrol] 5 mg PO BID 04/18/17 05/22/17 History Furosemide [Lasix] 80 mg PO DAILY 05/22/17 05/22/17 History Magnesium Oxide [Mag-Ox] 400 mg PO BID 05/22/17 05/22/17 History metFORMIN HCL ER [Glucophage Xr] 500 mg PO BID 05/22/17 05/22/17 History Allergies Allergy/AdvReac Type Severity Reaction Status Date / Time Penicillins Allergy Rash/Hives Verified 05/22/17 08:26 propofol Allergy Unknown Verified 05/22/17 08:26 sulfamethoxazole AdvReac Abdominal Verified 05/22/17 08:26 [From Bactrim] Pain trimethoprim [From Bactrim] AdvReac Abdominal Verified 05/22/17 08:26 Pain Physical Exam Vitals: Vital Signs Temp Pulse Pulse Resp BP BP Pulse Ox 05/22/17 08:55 96 05/22/17 08:00 64 18 105/54 98 05/22/17 04:00 98.9 F 60 18 93/46 96 05/22/17 01:50 98.7 F 60 18 91/50 97 05/22/17 01:20 98.7 F 60 18 91/50 97 05/22/17 00:58 71 20 85/51 96 05/22/17 00:07 100.6 F H 93 16 97/74 94 L Intake and Output 05/21/17 05/22/17 05/22/17 22:59 06:59 14:59 Other: Weight 43.5 kg 43.5 kg Patient Weight 05/23/17 06:59 Weight 43.5 kg Results 05/22/17 00:10 05/22/17 00:10 Cardiac Enzymes 05/22/17 05/22/17 05/22/17 Range/Units 00:10 00:10 06:02 AST 48 H (14-36) U/L CK-MB (CK-2) 1.4 16.8 H* (0.0-2.4) ng/mL Troponin I 0.102 H* 11.000 H* (0.000-0.034) ng/mL Coagulation 05/22/17 Range/Units 00:10 PT 11.3 (9.0-12.0) sec APTT 21.3 L (22.0-30.0) sec Lipids 05/22/17 Range/Units 06:02 Triglycerides 69 (<150) mg/dL Cholesterol 110 (<200) mg/dL HDL Cholesterol 47 (40-60) mg/dL CBC 05/22/17 Range/Units 00:10 WBC 16.9 H (3.8-10.6) k/uL RBC 3.31 L (3.80-5.40) m/uL Hgb 11.1 L (11.4-16.0) gm/dL Hct 33.6 L (34.0-46.0) % Plt Count 190 (150-450) k/uL Comprehensive Metabolic Panel 05/22/17 Range/Units 00:10 Sodium 135 L (137-145) mmol/L Potassium 5.7 H (3.5-5.1) mmol/L Chloride 103 (98-107) mmol/L Carbon Dioxide 19 L (22-30) mmol/L BUN 40 H (7-17) mg/dL Creatinine 1.30 H (0.52-1.04) mg/dL Glucose 321 H (74-99) mg/dL Calcium 8.8 (8.4-10.2) mg/dL AST 48 H (14-36) U/L ALT 30 (9-52) U/L Alkaline Phosphatase 77 (38-126) U/L Total Protein 6.8 (6.3-8.2) g/dL Albumin 3.9 (3.5-5.0) g/dL Current Medications Generic Name Dose Route Start Last Admin Trade Name Freq PRN Reason Stop Dose Admin Aspirin 325 mg 05/22/17 09:00 Aspirin PO DAILY [facility] Insulin Human Lispro 0 unit 05/22/17 07:30 05/22/17 06:56 Humalog SQ 7 unit ACHS [facility] Administration Protocol Morphine Sulfate 4 mg 05/21/17 23:45 Morphine Sulfate (Inj) IV Q5M PRN Chest Pain Nitroglycerin 0.4 mg 05/21/17 23:45 Nitrostat SUBLINGUAL Q5M PRN Chest Pain Intake and Output 05/21/17 05/22/17 05/22/17 22:59 06:59 14:59 Other: Weight 43.5 kg 43.5 kg Patient Weight 05/23/17 06:59 Weight 43.5 kg 05/22/17 00:10 05/22/17 00:10
[2017-05-22] MEDS: INSULIN GLARGINE 100 UNIT/ML 10 ML VIAL SQ SCH ×2 (15:45→21:05)
[2017-05-22 17:02] LABS: Glucose,Whole Blood 214 mg/dL (75-99)
[2017-05-22 20:44] LABS: Glucose,Whole Blood 314 mg/dL (75-99)
[2017-05-22] MEDS ORDERED: glipiZIDE 5 MG TAB PO SCH (21:00)
[2017-05-22] MEDS ORDERED: metFORMIN 500 MG TAB PO SCH (21:00)
[2017-05-22] MEDS ORDERED: FUROSEMIDE 40 MG TAB PO SCH (21:00)
[2017-05-22] MEDS: APIXABAN 5 MG TAB PO SCH (21:06)
[2017-05-22] MEDS: PREGABALIN 75 MG CAP PO SCH (21:06)
[2017-05-22] MEDS: ATORVASTATIN 40 MG TAB PO SCH (21:06)
[2017-05-22] MEDS: MAGNESIUM OXIDE 400 MG TAB PO SCH (21:06)
[2017-05-22] MEDS: METOPROLOL TARTRATE 50 MG TAB PO SCH (21:06)
[2017-05-23] MEDS: HYDROcodone/APAP 7.5-325MG 1 EACH TAB PO PRN (02:53)
[2017-05-23 05:34] LABS: Glucose,Whole Blood 180 mg/dL (75-99)
[2017-05-23] MEDS: PANTOPRAZOLE 40 MG TABLET PO SCH (06:25)
[2017-05-23] MEDS: LEVOTHYROXINE 25 MCG TAB PO SCH (06:25)
[2017-05-23] MEDS: INSULIN LISPRO (humaLOG) 300 UNIT/3 ML VIAL SQ SCH ×4 (06:25→21:04)
[2017-05-23 06:33] LABS: Anisocytosis Slight; Basophils % (A) 0 %; CH 33.8; CHCM 33.7; Eosinophils # (A) 0.2 k/uL (0-0.7); Eosinophils % (A) 2 %; HCT 31.4 % (34.0-46.0); HDW 3.39; HGB 10.3 gm/dL (11.4-16.0); Luc # (Auto) 0.14; Luc % (Auto) 2; Lymphocytes % (A) 12 %; MCHC 32.7 g/dL (31.0-37.0); MCV 100.9 fL (80.0-100.0); Macrocytosis Slight; Mean Platelet Volume 9.3; Monocytes # (A) 0.4 k/uL (0-1.0); Monocytes % (A) 5 %; Neutrophils # (A) 6.4 k/uL (1.3-7.7); Neutrophils % (A) 79 %; RBC 3.12 m/uL (3.80-5.40); RDW 16.8 % (11.5-15.5); WBC 8.2 k/uL (3.8-10.6); WBC (Perox) 8.76
[2017-05-23 06:58] LABS: Calcium 8.8 mg/dL (8.4-10.2); Magnesium 2.4 mg/dL (1.6-2.3); Phosphorous 3.4 mg/dL (2.5-4.5); Potassium 4.8 mmol/L (3.5-5.1); Total Bilirubin 0.7 mg/dL (0.2-1.3); Total Protein 5.7 g/dL (6.3-8.2)
[2017-05-23] MEDS ORDERED: PANTOPRAZOLE 40 MG TABLET PO SCH (07:30)
[2017-05-23] MEDS: LISINOPRIL 10 MG TAB PO SCH (07:41)
[2017-05-23] MEDS: APIXABAN 5 MG TAB PO SCH ×2 (07:41→21:04)
[2017-05-23] MEDS: ALLOPURINOL 300 MG TAB PO SCH (07:42)
[2017-05-23] MEDS: ISOSORBIDE MONONITRATE ER 60 MG TAB.ER.24H PO SCH (07:42)
[2017-05-23] MEDS: METOPROLOL TARTRATE 50 MG TAB PO SCH ×2 (07:42→21:04)
[2017-05-23] MEDS: MORPHINE SULFATE 2 MG/ML SYRINGE IVP PRN ×3 (07:47→21:05)
[2017-05-23] MEDS ORDERED: ASPIRIN 81 MG PO SCH (09:00)
[2017-05-23] MEDS ORDERED: FUROSEMIDE 80 MG TAB PO SCH (09:00)
[2017-05-23] MEDS: MAGNESIUM OXIDE 400 MG TAB PO SCH ×2 (10:55→21:04)
--- NOTE | 2017-05-23 11:10 | P.PN ---
Subjective Patient is lying flat in bed she looks comfortable no chest discomfort no breathing trouble. On examination her blood pressures 103/60 mmHg pulse rate in the 70s she's afebrile 98.5F pulse ox is normal Heart sounds S1 and S2 are soft no S3 gallop Abdomen soft nontender Breath sounds are reduced bilaterally Extremities are warm no edema Impression Known coronary artery disease abnormal stress test recently, non-Q-wave [place] on this admission, on appropriate Therapy Plan Continue drug therapy and discuss further management with primary component technician. Originally the plan was medical treatment last time when his stress test was abnormal but this time she now comes in with a non-Q wave myocardial infarction 2 weeks later. Objective - Vital Signs Vital signs: Vital Signs Temp 98.5 F 05/23/17 08:00 Pulse 70 05/23/17 08:00 Resp 18 05/23/17 08:00 BP 103/60 05/23/17 08:00 Pulse Ox 95 05/23/17 08:00 Intake & Output 05/22/17 05/23/17 05/23/17 18:59 06:59 18:59 Intake Total 240 240 180 Balance 240 240 180 Weight 68.039 kg 69.5 kg Intake: Oral 240 240 180 Other: Voiding Method Diaper # Voids 1 1 # Bowel Movements 0 - Labs CBC & Chem 7: 05/23/17 06:20 05/23/17 06:20 Labs: Abnormal Lab Results - Last 24 Hours (Table) 05/22/17 05/22/17 05/22/17 Range/Units 06:02 11:31 11:41 RBC (3.80-5.40) m/uL Hgb (11.4-16.0) gm/dL Hct (34.0-46.0) % MCV (80.0-100.0) fL RDW (11.5-15.5) % BUN (7-17) mg/dL Creatinine (0.52-1.04) mg/dL Glucose (74-99) mg/dL POC Glucose (mg/dL) 366 H (75-99) mg/dL Hemoglobin A1c 7.3 H (4.2-6.1) % Magnesium (1.6-2.3) mg/dL AST (14-36) U/L Total Creatine Kinase 635 H (30-135) U/L CK-MB (CK-2) 18.8 H* (0.0-2.4) ng/mL Troponin I 5.610 H* (0.000-0.034) ng/mL Total Protein (6.3-8.2) g/dL Albumin (3.5-5.0) g/dL 05/22/17 05/22/17 05/23/17 Range/Units 16:49 20:43 05:31 RBC (3.80-5.40) m/uL Hgb (11.4-16.0) gm/dL Hct (34.0-46.0) % MCV (80.0-100.0) fL RDW (11.5-15.5) % BUN (7-17) mg/dL Creatinine (0.52-1.04) mg/dL Glucose (74-99) mg/dL POC Glucose (mg/dL) 214 H 314 H 180 H (75-99) mg/dL Hemoglobin A1c (4.2-6.1) % Magnesium (1.6-2.3) mg/dL AST (14-36) U/L Total Creatine Kinase (30-135) U/L CK-MB (CK-2) (0.0-2.4) ng/mL Troponin I (0.000-0.034) ng/mL Total Protein (6.3-8.2) g/dL Albumin (3.5-5.0) g/dL 05/23/17 05/23/17 Range/Units 06:20 06:20 RBC 3.12 L (3.80-5.40) m/uL Hgb 10.3 L (11.4-16.0) gm/dL Hct 31.4 L (34.0-46.0) % MCV 100.9 H (80.0-100.0) fL RDW 16.8 H (11.5-15.5) % BUN 39 H (7-17) mg/dL Creatinine 1.38 H (0.52-1.04) mg/dL Glucose 189 H (74-99) mg/dL POC Glucose (mg/dL) (75-99) mg/dL Hemoglobin A1c (4.2-6.1) % Magnesium 2.4 H (1.6-2.3) mg/dL AST 43 H (14-36) U/L Total Creatine Kinase (30-135) U/L CK-MB (CK-2) (0.0-2.4) ng/mL Troponin I (0.000-0.034) ng/mL Total Protein 5.7 L (6.3-8.2) g/dL Albumin 3.1 L (3.5-5.0) g/dL Microbiology - Last 24 Hours (Table) 05/22/17 04:15 Urine Culture - Preliminary Urine,Voided
[2017-05-23] MEDS ORDERED: PETROLATUM, WHITE OINT 50 GM TUBE TOPICAL PRN (11:38)
[2017-05-23 11:39] LABS: Glucose,Whole Blood 216 mg/dL (75-99)
--- NOTE | 2017-05-23 12:23 | P.PN ---
Subjective Today, patient is complaining of worsening right flank pain. Her and her daughter are not sure if she had a fall or just hit her side at home. There is a small bruise on exam but no hematoma appreciated. There is a concern as patient is on anticoagulation so I would order a computed tomography scan of the abdomen for further evaluation and to rule out intra-abdominal or retroperitoneal hematoma Objective - Vital Signs Vital signs: Vital Signs Temp 98.5 F 05/23/17 08:00 Pulse 70 05/23/17 08:00 Resp 18 05/23/17 08:00 BP 103/60 05/23/17 08:00 Pulse Ox 95 05/23/17 08:00 Intake & Output 05/22/17 05/23/17 05/23/17 18:59 06:59 18:59 Intake Total 240 240 180 Balance 240 240 180 Weight 68.039 kg 69.5 kg Intake: Oral 240 240 180 Other: Voiding Method Diaper # Voids 1 1 # Bowel Movements 0 - Exam General: The patient is awake and alert, in no distress Eye: there is normal conjunctiva bilaterally. Neck: The neck is supple, there is no JVD. Cardiovascular: Normal S1-S2, no S3-S4, no murmurs. Respiratory: Lungs clear to auscultation bilaterally Gastrointestinal: Abdomen is soft, nontender Musculoskeletal: There is no pedal edema. Neurological:. Speech is normal. Skin: Skin is warm and dry - Labs CBC & Chem 7: 05/23/17 06:20 05/23/17 06:20 Labs: Abnormal Lab Results - Last 24 Hours (Table) 05/22/17 05/22/17 05/22/17 Range/Units 06:02 11:31 16:49 RBC (3.80-5.40) m/uL Hgb (11.4-16.0) gm/dL Hct (34.0-46.0) % MCV (80.0-100.0) fL RDW (11.5-15.5) % BUN (7-17) mg/dL Creatinine (0.52-1.04) mg/dL Glucose (74-99) mg/dL POC Glucose (mg/dL) 214 H (75-99) mg/dL Hemoglobin A1c 7.3 H (4.2-6.1) % Magnesium (1.6-2.3) mg/dL AST (14-36) U/L Total Creatine Kinase 635 H (30-135) U/L CK-MB (CK-2) 18.8 H* (0.0-2.4) ng/mL Troponin I 5.610 H* (0.000-0.034) ng/mL Total Protein (6.3-8.2) g/dL Albumin (3.5-5.0) g/dL 05/22/17 05/23/17 05/23/17 Range/Units 20:43 05:31 06:20 RBC 3.12 L (3.80-5.40) m/uL Hgb 10.3 L (11.4-16.0) gm/dL Hct 31.4 L (34.0-46.0) % MCV 100.9 H (80.0-100.0) fL RDW 16.8 H (11.5-15.5) % BUN (7-17) mg/dL Creatinine (0.52-1.04) mg/dL Glucose (74-99) mg/dL POC Glucose (mg/dL) 314 H 180 H (75-99) mg/dL Hemoglobin A1c (4.2-6.1) % Magnesium (1.6-2.3) mg/dL AST (14-36) U/L Total Creatine Kinase (30-135) U/L CK-MB (CK-2) (0.0-2.4) ng/mL Troponin I (0.000-0.034) ng/mL Total Protein (6.3-8.2) g/dL Albumin (3.5-5.0) g/dL 05/23/17 05/23/17 Range/Units 06:20 11:37 RBC (3.80-5.40) m/uL Hgb (11.4-16.0) gm/dL Hct (34.0-46.0) % MCV (80.0-100.0) fL RDW (11.5-15.5) % BUN 39 H (7-17) mg/dL Creatinine 1.38 H (0.52-1.04) mg/dL Glucose 189 H (74-99) mg/dL POC Glucose (mg/dL) 216 H (75-99) mg/dL Hemoglobin A1c (4.2-6.1) % Magnesium 2.4 H (1.6-2.3) mg/dL AST 43 H (14-36) U/L Total Creatine Kinase (30-135) U/L CK-MB (CK-2) (0.0-2.4) ng/mL Troponin I (0.000-0.034) ng/mL Total Protein 5.7 L (6.3-8.2) g/dL Albumin 3.1 L (3.5-5.0) g/dL Microbiology - Last 24 Hours (Table) 05/22/17 04:15 Urine Culture - Preliminary Urine,Voided Assessment and Plan Plan: 1. Acute non-ST elevation myocardial infarction seen and evaluated by cardiology. Awaiting decision regarding possible left heart catheterization tomorrow., 2. History of coronary artery disease with prior stent placement 3. Underlying ischemic cardiomyopathy with known EF of 20% currently compensated 4. Essential hypertension: Blood pressure well-controlled 5. Type 2 diabetes mellitus hold oral agents and continue sliding scale insulin 6. Paroxysmal atrial fibrillation on anticoagulation with Eliquis 7. Mixed hyperlipidemia 8. Mild acute kidney injury, will hold nephrotoxic Today, patient is complaining of worsening right flank pain. Her and her daughter are not sure if she had a fall or just hit her side at home. There is a small bruise on exam but no hematoma appreciated. There is a concern as patient is on anticoagulation so I would order a computed tomography scan of the abdomen for further evaluation and to rule out intra-abdominal or retroperitoneal hematoma I reviewed her medication list on lab work results. Continue optimal medical management. Patient was seen and evaluated by cardiology. Echocardiogram ordered. Possible left heart catheterization on Tuesday. Continue supportive care otherwise. Repeat lab work in the morning.
--- NOTE | 2017-05-23 14:03 | CT ---
EXAMINATION TYPE: CT abdomen pelvis wo con DATE OF EXAM: 05/23/2017 COMPARISON: NONE INDICATION: Rt sided pain, hematoma DLP: 640.4 mGycm, Automated exposure control for dose reduction was used. CONTRAST: No intravenous contrast. Study performed without Oral Contrast TECHNIQUE: Axial images were obtained from above the diaphragm to the pubic rami in the axial plane a t 5 mm thick sections. Reconstructed images are reviewed on the computer in the coronal plane. FINDINGS: Limited CT sections are obtained the lung bases. There is streak opacities within the bilateral lung bases, likely on the basis of atelectasis. Cardiomegaly is present. Coronary artery calcification is present.. CT ABDOMEN: Liver: Normal Spleen: Normal Pancreas: Normal Adrenal glands: The adrenal glands are normal. Gallbladder: Surgically absent Kidneys: No masses are evident. No hydronephrosis is present. No cysts are present. No renal stone s are identified. Within the pelvic inlet region there are a series of approximately 3 calcifications anterior to the l eft psoas muscle. This is near the ureter course. However, these appear to be phleboliths within the gonadal vein just lateral to the ureter on the coronal plane image. Series 6 image 55. Within the upper left pelvis there is a 0.4 cm calcification medial to the left psoas muscle could be a ureteral stone. Significant hydroureter is not identified. Series 3 image 58. Aorta: Vascular calcification is within the aorta. Inferior vena cava: Normal. CT PELVIS: Loops of bowel within the abdomen and pelvis are normal. Sigmoid diverticulosis without acute div erticulitis is present. Right inguinal hernias present containing mesenteric fat. Appendix: Not identified Urinary bladder: Normal. Genitourinary structures: Uterus is normal. Adnexal regions are clear. Osseous structures: No suspicious lytic or sclerotic lesions. IMPRESSIONS: 1. Diverticulosis without acute diverticulitis. 2. 0.4 cm left mid ureteral stone within the pelvis is not entirely excluded. Phlebolith however is a lso within the differential at this location. 3. No suspicious fluid collection, retroperitoneal collection, or subcutaneous collection right flank to account for severe right flank pain
[2017-05-23] MEDS ORDERED: LEVOFLOXACIN 500 MG TAB PO SCH (14:30)
[2017-05-23 17:32] LABS: Glucose,Whole Blood 384 mg/dL (75-99)
[2017-05-23 20:41] LABS: Glucose,Whole Blood 269 mg/dL (75-99)
[2017-05-23] MEDS: INSULIN GLARGINE 100 UNIT/ML 10 ML VIAL SQ SCH (21:04)
[2017-05-23] MEDS: PREGABALIN 75 MG CAP PO SCH (21:04)
[2017-05-23] MEDS: ATORVASTATIN 40 MG TAB PO SCH (21:04)
[2017-05-24] MEDS: MORPHINE SULFATE 2 MG/ML SYRINGE IVP PRN ×3 (01:10→08:19)
[2017-05-24] MEDS: INSULIN LISPRO (humaLOG) 300 UNIT/3 ML VIAL SQ SCH ×4 (06:24→21:16)
[2017-05-24 06:25] LABS: Glucose,Whole Blood 116 mg/dL (75-99)
[2017-05-24] MEDS: PANTOPRAZOLE 40 MG TABLET PO SCH (06:37)
[2017-05-24] MEDS: LEVOTHYROXINE 25 MCG TAB PO SCH (06:37)
[2017-05-24 06:41] LABS: Anisocytosis Slight; Basophils % (A) 0 %; CH 33.9; CHCM 33.8; Eosinophils # (A) 0.3 k/uL (0-0.7); Eosinophils % (A) 4 %; HCT 30.6 % (34.0-46.0); HDW 3.58; HGB 9.8 gm/dL (11.4-16.0); Luc # (Auto) 0.28; Luc % (Auto) 4; Lymphocytes # (A) 1.3 k/uL (1.0-4.8); Lymphocytes % (A) 18 %; MCH 32.4 pg (25.0-35.0); MCHC 32.1 g/dL (31.0-37.0); MCV 100.9 fL (80.0-100.0); Macrocytosis Slight; Mean Platelet Volume 8.3; Monocytes # (A) 0.5 k/uL (0-1.0); Monocytes % (A) 7 %; Neutrophils % (A) 67 %; Poikilocytosis Slight; RBC 3.03 m/uL (3.80-5.40); RDW 16.7 % (11.5-15.5); WBC 7.4 k/uL (3.8-10.6); WBC (Perox) 7.52
[2017-05-24] MEDS: HYDROcodone/APAP 7.5-325MG 1 EACH TAB PO PRN (06:43)
[2017-05-24 07:17] LABS: Calcium 8.9 mg/dL (8.4-10.2); Magnesium 2.2 mg/dL (1.6-2.3); Phosphorous 3.7 mg/dL (2.5-4.5); Potassium 4.3 mmol/L (3.5-5.1); Total Protein 5.4 g/dL (6.3-8.2)
[2017-05-24] MEDS: ISOSORBIDE MONONITRATE ER 60 MG TAB.ER.24H PO SCH (08:19)
[2017-05-24] MEDS: APIXABAN 5 MG TAB PO SCH (08:19)
[2017-05-24] MEDS: METOPROLOL TARTRATE 50 MG TAB PO SCH ×2 (08:19→21:16)
[2017-05-24] MEDS: MAGNESIUM OXIDE 400 MG TAB PO SCH ×2 (08:19→21:16)
[2017-05-24] MEDS: LISINOPRIL 10 MG TAB PO SCH ×2 (08:19→15:19)
[2017-05-24] MEDS: ALLOPURINOL 300 MG TAB PO SCH (08:20)
[2017-05-24] MEDS ORDERED: SODIUM CHLORIDE 0.9% 1,000 ML in EMPTY BAG 1 BAG IV ONE (09:14)
[2017-05-24] MEDS ORDERED: ALPRAZolam 0.5 MG TAB PO PRN (09:14)
[2017-05-24] MEDS ORDERED: ALPRAZolam 0.25 MG TAB PO PRN (09:14)
[2017-05-24] MEDS ORDERED: NITROGLYCERIN SL TABS 0.4 MG TAB SUBLINGUAL PRN (09:14)
[2017-05-24] MEDS ORDERED: ATORVASTATIN 80 MG TAB PO STA (09:16)
[2017-05-24] MEDS ORDERED: ASPIRIN 325 MG TAB PO STA (09:16)
--- NOTE | 2017-05-24 10:39 | P.PN ---
Subjective Principal diagnosis: Non-Q-wave [place] This is a pleasant 77-year-old female who follows regularly with Dr. Wall in the office. She has a known history of coronary artery disease with prior bypass surgery as well as stenting in the past. History of ischemic cardiomyopathy with prior AICD implantation, paroxysmal atrial fibrillation, on Eliquis, diabetes, hypertension, mild renal failure, she presented to the hospital with a non-Q-wave myocardial infarction. Troponin 0.1, 11.0 and 5.6. EKG on admission showed a normal sinus rhythm with lateral ST depression. She also states that she had a fall at home recently, injuring her right flank area. CT of the abdomen and pelvis did not reveal any evidence of bleed. At the time of my examination this morning, she denies any chest discomfort, breathing is stable. She just states that she feels extremely tired. Blood pressure this morning 101/64 heart rate in the 70s, she is afebrile. Hemoglobin 9.8, BUN 39, creatinine 1.4. Patient has been advised to undergo cardiac catheterization by Dr. Wall, the risks and benefits were explained to the patient in detail. We will hydrate the patient in cardiac catheterization will be performed tomorrow. Objective - Vital Signs Vital signs: Vital Signs Temp 96.9 F L 05/24/17 08:00 Pulse 73 05/24/17 08:00 Resp 18 05/24/17 08:00 BP 101/64 05/24/17 08:00 Pulse Ox 95 05/24/17 08:00 Intake & Output 05/23/17 05/24/17 05/24/17 18:59 06:59 18:59 Intake Total 518 Balance 518 Weight 69.4 kg Intake: Oral 518 Other: Voiding Method Toilet Toilet Diaper Diaper # Voids 1 2 - Exam PHYSICAL EXAMINATION: HEENT: Head is atraumatic, normocephalic. Pupils equal, round. Neck is supple. There is no elevated jugular venous pressure. HEART EXAMINATION: Heart S1 and S2 irregularly irregular a systolic murmur is heard. CHEST EXAMINATION: Lungs are clear to auscultation and precussion. No chest wall tenderness is noted on palpation or with deep breathing. ABDOMEN: Soft, nontender. Bowel sounds are heard. No organomegaly noted. Patient does have some ecchymosis noted at the right flank area, tender. EXTREMITIES: 2+ peripheral pulses with no evidence of peripheral edema and no calf tenderness noted. NEUROLOGIC patient is awake, alert and oriented -3. . - Labs CBC & Chem 7: 05/24/17 06:26 05/24/17 06:26 Labs: Abnormal Lab Results - Last 24 Hours (Table) 05/23/17 05/23/17 05/23/17 Range/Units 11:37 17:12 20:37 RBC (3.80-5.40) m/uL Hgb (11.4-16.0) gm/dL Hct (34.0-46.0) % MCV (80.0-100.0) fL RDW (11.5-15.5) % Sodium (137-145) mmol/L BUN (7-17) mg/dL Creatinine (0.52-1.04) mg/dL Glucose (74-99) mg/dL POC Glucose (mg/dL) 216 H 384 H 269 H (75-99) mg/dL Total Protein (6.3-8.2) g/dL Albumin (3.5-5.0) g/dL 05/24/17 05/24/17 05/24/17 Range/Units 06:22 06:26 06:26 RBC 3.03 L (3.80-5.40) m/uL Hgb 9.8 L (11.4-16.0) gm/dL Hct 30.6 L (34.0-46.0) % MCV 100.9 H (80.0-100.0) fL RDW 16.7 H (11.5-15.5) % Sodium 135 L (137-145) mmol/L BUN 39 H (7-17) mg/dL Creatinine 1.43 H (0.52-1.04) mg/dL Glucose 108 H (74-99) mg/dL POC Glucose (mg/dL) 116 H (75-99) mg/dL Total Protein 5.4 L (6.3-8.2) g/dL Albumin 3.0 L (3.5-5.0) g/dL Microbiology - Last 24 Hours (Table) 05/22/17 04:15 Urine Culture - Preliminary Urine,Voided Gram Neg Bacilli Assessment and Plan Plan: Assessment and plan #1 acute non-ST elevation myocardial infarction #2 known history of coronary artery disease with prior bypass surgery and stent placement #3 ischemic cardiomyopathy with prior AICD implant #4 hypertension Number 5 diabetes #6 paroxysmal atrial fibrillation on Eliquis for anticoagulation #7 hyperlipidemia #8 mild acute kidney injury Plan We'll repeat an echocardiogram with Doppler study now that the patient presented with a non-Q-wave myocardial infarction. We will follow also hydrate the patient with 50 mL per hour, hold the Eliquis, check lytes BUN and creatinine in the morning. Cardiac catheterization will be performed tomorrow by Dr. Wall. DNP note has been reviewed, I agree with a documented findings and plan of care. Patient was seen and examined.
[2017-05-24 12:01] LABS: Glucose,Whole Blood 232 mg/dL (75-99)
--- NOTE | 2017-05-24 13:52 | P.PN ---
Subjective Today, patient is stating she has worsening right flank pain. Her and her daughter are not sure if she had a fall or just hit her side at home. There is a small bruise on exam but no hematoma appreciated. Patient has urinary tract infection she was so far treated with IV Levaquin urine culture is positive for E. coli that is resistant to Levaquin. At this time will change IV Levaquin to IV Rocephin and monitor closely. Pain could be related to urinary tract infection. Computed tomography scan of abdomen and pelvis reviewed no significant fluid collection no evidence of hematoma. Objective - Vital Signs Vital signs: Vital Signs Temp 97.2 F L 05/24/17 12:00 Pulse 55 L 05/24/17 12:00 Resp 18 05/24/17 12:00 BP 99/52 05/24/17 12:00 Pulse Ox 96 05/24/17 12:00 Intake & Output 05/23/17 05/24/17 05/24/17 18:59 06:59 18:59 Intake Total 518 140 Balance 518 140 Weight 69.4 kg Intake: Oral 518 140 Other: Voiding Method Toilet Toilet Toilet Diaper Diaper Diaper # Voids 1 2 2 - Exam In general patient is alert and oriented 3 in no apparent distress HEENT head normocephalic and atraumatic Neck is supple no JVD no goiter no lymphadenopathy Chest is clear to auscultation no wheezing Cardiac exam reveals regular heart sounds no murmurs Abdomen is soft nontender no organomegaly Extremity exam reveals no edema no cyanosis or clubbing - Labs CBC & Chem 7: 05/24/17 06:26 05/24/17 06:26 Labs: Abnormal Lab Results - Last 24 Hours (Table) 05/23/17 05/23/17 05/24/17 Range/Units 17:12 20:37 06:22 RBC (3.80-5.40) m/uL Hgb (11.4-16.0) gm/dL Hct (34.0-46.0) % MCV (80.0-100.0) fL RDW (11.5-15.5) % Sodium (137-145) mmol/L BUN (7-17) mg/dL Creatinine (0.52-1.04) mg/dL Glucose (74-99) mg/dL POC Glucose (mg/dL) 384 H 269 H 116 H (75-99) mg/dL Total Protein (6.3-8.2) g/dL Albumin (3.5-5.0) g/dL 05/24/17 05/24/17 05/24/17 Range/Units 06:26 06:26 11:56 RBC 3.03 L (3.80-5.40) m/uL Hgb 9.8 L (11.4-16.0) gm/dL Hct 30.6 L (34.0-46.0) % MCV 100.9 H (80.0-100.0) fL RDW 16.7 H (11.5-15.5) % Sodium 135 L (137-145) mmol/L BUN 39 H (7-17) mg/dL Creatinine 1.43 H (0.52-1.04) mg/dL Glucose 108 H (74-99) mg/dL POC Glucose (mg/dL) 232 H (75-99) mg/dL Total Protein 5.4 L (6.3-8.2) g/dL Albumin 3.0 L (3.5-5.0) g/dL Microbiology - Last 24 Hours (Table) 05/22/17 04:15 Urine Culture - Final Urine,Voided Escherichia coli Assessment and Plan Plan: 1. Acute non-ST elevation myocardial infarction seen and evaluated by cardiology. Awaiting decision regarding possible left heart catheterization tomorrow., 2. History of coronary artery disease with prior stent placement 3. Underlying ischemic cardiomyopathy with known EF of 20% currently compensated 4. Essential hypertension: Blood pressure well-controlled 5. Type 2 diabetes mellitus hold oral agents and continue sliding scale insulin 6. Paroxysmal atrial fibrillation on anticoagulation with Eliquis 7. Mixed hyperlipidemia 8. Mild acute kidney injury, will hold nephrotoxic Plan at this time is to proceed with cardiac catheterization was Dr. Wall tomorrow Will switch antibiotic to IV Rocephin and monitor closely due to penicillin ALLERGY Pain is uncontrolled will change [place] to 10/325 every 6 hours when necessary Will monitor closely
[2017-05-24] MEDS: HYDROcodone/APAP 10-325MG 1 EACH TAB PO PRN ×2 (14:52→21:17)
[2017-05-24 16:38] LABS: Glucose,Whole Blood 356 mg/dL (75-99)
[2017-05-24 21:07] LABS: Glucose,Whole Blood 440 mg/dL (75-99)
[2017-05-24] MEDS: PREGABALIN 75 MG CAP PO SCH (21:16)
[2017-05-24] MEDS: INSULIN GLARGINE 100 UNIT/ML 10 ML VIAL SQ SCH (21:16)
[2017-05-25] MEDS: HYDROcodone/APAP 10-325MG 1 EACH TAB PO PRN ×3 (04:06→22:50)
[2017-05-25 05:44] LABS: Glucose,Whole Blood 208 mg/dL (75-99)
[2017-05-25 06:18] LABS: Anisocytosis Slight; Basophils % (A) 0 %; CH 33.9; Eosinophils # (A) 0.3 k/uL (0-0.7); Eosinophils % (A) 4 %; HCT 31.8 % (34.0-46.0); HDW 3.68; HGB 10.3 gm/dL (11.4-16.0); Luc # (Auto) 0.21; Luc % (Auto) 3; Lymphocytes # (A) 1.2 k/uL (1.0-4.8); Lymphocytes % (A) 16 %; MCH 32.4 pg (25.0-35.0); MCHC 32.3 g/dL (31.0-37.0); MCV 100.4 fL (80.0-100.0); Macrocytosis Slight; Mean Platelet Volume 8.2; Monocytes # (A) 0.4 k/uL (0-1.0); Monocytes % (A) 6 %; Neutrophils # (A) 5.3 k/uL (1.3-7.7); Neutrophils % (A) 71 %; Poikilocytosis Slight; RBC 3.16 m/uL (3.80-5.40); RDW 16.8 % (11.5-15.5); WBC 7.5 k/uL (3.8-10.6); WBC (Perox) 8.07
[2017-05-25 06:34] LABS: Magnesium 2.2 mg/dL (1.6-2.3); Phosphorous 3.8 mg/dL (2.5-4.5); Potassium 4.7 mmol/L (3.5-5.1); Total Bilirubin 0.6 mg/dL (0.2-1.3); Total Protein 6.1 g/dL (6.3-8.2)
[2017-05-25] MEDS: INSULIN LISPRO (humaLOG) 300 UNIT/3 ML VIAL SQ SCH ×4 (07:40→21:14)
[2017-05-25] MEDS: PANTOPRAZOLE 40 MG TABLET PO SCH (08:40)
[2017-05-25] MEDS: ALLOPURINOL 300 MG TAB PO SCH (08:40)
[2017-05-25] MEDS: LEVOTHYROXINE 25 MCG TAB PO SCH (08:40)
[2017-05-25] MEDS: METOPROLOL TARTRATE 50 MG TAB PO SCH ×2 (08:41→21:14)
[2017-05-25] MEDS: LISINOPRIL 10 MG TAB PO SCH (08:41)
[2017-05-25] MEDS: ISOSORBIDE MONONITRATE ER 60 MG TAB.ER.24H PO SCH (08:41)
[2017-05-25] MEDS: MAGNESIUM OXIDE 400 MG TAB PO SCH ×2 (09:04→21:14)
--- NOTE | 2017-05-25 10:17 | P.PN ---
Subjective Principal diagnosis: Non-Q-wave [place] This is a pleasant 77-year-old female who follows regularly with Dr. Wall in the office. She has a known history of coronary artery disease with prior bypass surgery as well as stenting in the past. History of ischemic cardiomyopathy with prior AICD implantation, paroxysmal atrial fibrillation, on Eliquis, diabetes, hypertension, mild renal failure, she presented to the hospital with a non-Q-wave myocardial infarction. Troponin 0.1, 11.0 and 5.6. EKG on admission showed a normal sinus rhythm with lateral ST depression. She also states that she had a fall at home recently, injuring her right flank area. CT of the abdomen and pelvis did not reveal any evidence of bleed. At the time of my examination this morning, she denies any chest discomfort, breathing is stable. She just states that she feels extremely tired. Blood pressure this morning 101/64 heart rate in the 70s, she is afebrile. Hemoglobin 9.8, BUN 39, creatinine 1.4. Patient has been advised to undergo cardiac catheterization by Dr. Wall, the risks and benefits were explained to the patient in detail. We will hydrate the patient in cardiac catheterization will be performed tomorrow. 05/25/2017 Patient seen and examined this morning, denies any further chest discomfort. She states that she feels weak. Creatinine this morning 1.4, hemoglobin 10.3.we will gently hydrate the patient, check creatinine and again in the morning and plan to do the heart catheterization tomorrow. This was explained to the patient in detail. Objective - Vital Signs Vital signs: Vital Signs Temp 96.7 F L 05/25/17 08:00 Pulse 60 05/25/17 08:00 Resp 18 05/25/17 08:00 BP 108/55 05/25/17 08:00 Pulse Ox 92 L 05/25/17 08:00 Intake & Output 05/24/17 05/25/17 05/25/17 18:59 06:59 18:59 Intake Total 757 0 240 Output Total 300 Balance 757 -300 240 Weight 69.5 kg Intake: Intake, IV Titration 380 Amount Sodium Chloride 0.9% 1, 280 000 ml In Empty Bag 1 bag @ 1 ML/KG/HR 69.4 mls/hr IV [id number] Rx#: [id number] [id number] 1,000 mg In 100 Sodium Chloride 0.9% 50 ml @ 100 mls/hr IVPB Q[facility]H [facility] Rx#:[id number] Oral 377 0 240 Output: Urine 300 Other: Voiding Method Toilet Toilet Toilet Diaper Diaper Diaper # Voids 4 1 - Exam PHYSICAL EXAMINATION: HEENT: Head is atraumatic, normocephalic. Pupils equal, round. Neck is supple. There is no elevated jugular venous pressure. HEART EXAMINATION: Heart S1 and S2 irregularly irregular a systolic murmur is heard. CHEST EXAMINATION: Lungs are clear to auscultation and precussion. No chest wall tenderness is noted on palpation or with deep breathing. ABDOMEN: Soft, nontender. Bowel sounds are heard. No organomegaly noted. Patient does have some ecchymosis noted at the right flank area, tender. EXTREMITIES: 2+ peripheral pulses with no evidence of peripheral edema and no calf tenderness noted. NEUROLOGIC patient is awake, alert and oriented -3. . - Labs CBC & Chem 7: 05/25/17 05:59 05/25/17 05:57 Labs: Abnormal Lab Results - Last 24 Hours (Table) 05/24/17 05/24/17 05/24/17 Range/Units 11:56 16:36 21:05 RBC (3.80-5.40) m/uL Hgb (11.4-16.0) gm/dL Hct (34.0-46.0) % MCV (80.0-100.0) fL RDW (11.5-15.5) % BUN (7-17) mg/dL Creatinine (0.52-1.04) mg/dL Glucose (74-99) mg/dL POC Glucose (mg/dL) 232 H 356 H 440 H (75-99) mg/dL Total Protein (6.3-8.2) g/dL Albumin (3.5-5.0) g/dL 05/25/17 05/25/17 05/25/17 Range/Units 05:43 05:57 05:59 RBC 3.16 L (3.80-5.40) m/uL Hgb 10.3 L (11.4-16.0) gm/dL Hct 31.8 L (34.0-46.0) % MCV 100.4 H (80.0-100.0) fL RDW 16.8 H (11.5-15.5) % BUN 41 H (7-17) mg/dL Creatinine 1.42 H (0.52-1.04) mg/dL Glucose 198 H (74-99) mg/dL POC Glucose (mg/dL) 208 H (75-99) mg/dL Total Protein 6.1 L (6.3-8.2) g/dL Albumin 3.4 L (3.5-5.0) g/dL Microbiology - Last 24 Hours (Table) 05/22/17 04:15 Urine Culture - Final Urine,Voided Escherichia coli Assessment and Plan Plan: Assessment and plan #1 acute non-ST elevation myocardial infarction #2 known history of coronary artery disease with prior bypass surgery and stent placement #3 ischemic cardiomyopathy with prior AICD implant #4 hypertension # 5 diabetes #6 paroxysmal atrial fibrillation on Eliquis for anticoagulation #7 hyperlipidemia #8 mild acute kidney injury Plan From cardiology's perspective, we will continue to hydrate at 50 mL per hour, schedule patient for cardiac catheterization tomorrow with Dr. Wall. Review echocardiogram with Doppler study. DNP note has been reviewed, I agree with a documented findings and plan of care. Patient was seen and examined.
--- NOTE | 2017-05-25 11:16 | P.PN ---
Subjective Today, patient is stating she has worsening right flank pain. Her and her daughter are not sure if she had a fall or just hit her side at home. There is a small bruise on exam but no hematoma appreciated. Patient has urinary tract infection she was so far treated with IV Levaquin urine culture is positive for E. coli that is resistant to Levaquin. At this time will change IV Levaquin to IV Rocephin and monitor closely. Pain could be related to urinary tract infection. Computed tomography scan of abdomen and pelvis reviewed no significant fluid collection no evidence of hematoma. Objective - Vital Signs Vital signs: Vital Signs Temp 96.7 F L 05/25/17 08:00 Pulse 60 05/25/17 08:00 Resp 18 05/25/17 08:00 BP 108/55 05/25/17 08:00 Pulse Ox 92 L 05/25/17 08:00 Intake & Output 05/24/17 05/25/17 05/25/17 18:59 06:59 18:59 Intake Total 757 0 240 Output Total 300 Balance 757 -300 240 Weight 69.5 kg Intake: Intake, IV Titration 380 Amount Sodium Chloride 0.9% 1, 280 000 ml In Empty Bag 1 bag @ 1 ML/KG/HR 69.4 mls/hr IV .[id number] [facility] Rx#: [id number] cefTRIAXone 1,000 mg In 100 Sodium Chloride 0.9% 50 ml @ 100 mls/hr IVPB Q24H [facility] Rx#:[id number] Oral 377 0 240 Output: Urine 300 Other: Voiding Method Toilet Toilet Toilet Diaper Diaper Diaper # Voids 4 1 - Exam In general patient is alert and oriented 3 in no apparent distress HEENT head normocephalic and atraumatic Neck is supple no JVD no goiter no lymphadenopathy Chest is clear to auscultation no wheezing Cardiac exam reveals regular heart sounds no murmurs Abdomen is soft nontender no organomegaly Extremity exam reveals no edema no cyanosis or clubbing - Labs CBC & Chem 7: 05/25/17 05:59 05/25/17 05:57 Labs: Abnormal Lab Results - Last 24 Hours (Table) 05/24/17 05/24/17 05/24/17 Range/Units 11:56 16:36 21:05 RBC (3.80-5.40) m/uL Hgb (11.4-16.0) gm/dL Hct (34.0-46.0) % MCV (80.0-100.0) fL RDW (11.5-15.5) % BUN (7-17) mg/dL Creatinine (0.52-1.04) mg/dL Glucose (74-99) mg/dL POC Glucose (mg/dL) 232 H 356 H 440 H (75-99) mg/dL Total Protein (6.3-8.2) g/dL Albumin (3.5-5.0) g/dL 05/25/17 05/25/17 05/25/17 Range/Units 05:43 05:57 05:59 RBC 3.16 L (3.80-5.40) m/uL Hgb 10.3 L (11.4-16.0) gm/dL Hct 31.8 L (34.0-46.0) % MCV 100.4 H (80.0-100.0) fL RDW 16.8 H (11.5-15.5) % BUN 41 H (7-17) mg/dL Creatinine 1.42 H (0.52-1.04) mg/dL Glucose 198 H (74-99) mg/dL POC Glucose (mg/dL) 208 H (75-99) mg/dL Total Protein 6.1 L (6.3-8.2) g/dL Albumin 3.4 L (3.5-5.0) g/dL Microbiology - Last 24 Hours (Table) 05/22/17 04:15 Urine Culture - Final Urine,Voided Escherichia coli Assessment and Plan Plan: 1. Acute non-ST elevation myocardial infarction seen and evaluated by cardiology. Awaiting decision regarding possible left heart catheterization tomorrow., 2. History of coronary artery disease with prior stent placement 3. Underlying ischemic cardiomyopathy with known EF of 20% currently compensated 4. Essential hypertension: Blood pressure well-controlled 5. Type 2 diabetes mellitus hold oral agents and continue sliding scale insulin 6. Paroxysmal atrial fibrillation on anticoagulation with Eliquis 7. Mixed hyperlipidemia 8. Mild acute kidney injury, will hold nephrotoxic Plan at this time is to proceed with cardiac catheterization with Dr. Wall tomorrow, this was delayed from today till tomorrow due to elevated creatinine at 1.42 patient is receiving IV hydration Will switch antibiotic to IV Rocephin and monitor closely due to penicillin ALLERGY Pain is uncontrolled will change [place] to 10/325 every 6 hours when necessary Will monitor closely
[2017-05-25 11:43] LABS: Glucose,Whole Blood 209 mg/dL (75-99)
[2017-05-25 16:38] LABS: Glucose,Whole Blood 228 mg/dL (75-99)
[2017-05-25 20:44] LABS: Glucose,Whole Blood 242 mg/dL (75-99)
[2017-05-25] MEDS: PREGABALIN 75 MG CAP PO SCH (21:14)
[2017-05-25] MEDS: ATORVASTATIN 40 MG TAB PO SCH (21:14)
[2017-05-25] MEDS: INSULIN GLARGINE 100 UNIT/ML 10 ML VIAL SQ SCH (21:14)
[2017-05-26] MEDS: HYDROcodone/APAP 10-325MG 1 EACH TAB PO PRN ×2 (05:51→20:17)
[2017-05-26] MEDS: ISOSORBIDE MONONITRATE ER 60 MG TAB.ER.24H PO SCH (05:51)
[2017-05-26] MEDS: ALLOPURINOL 300 MG TAB PO SCH (05:51)
[2017-05-26] MEDS: METOPROLOL TARTRATE 50 MG TAB PO SCH ×2 (05:51→20:17)
[2017-05-26] MEDS: LISINOPRIL 10 MG TAB PO SCH (05:51)
[2017-05-26] MEDS: PANTOPRAZOLE 40 MG TABLET PO SCH (05:51)
[2017-05-26] MEDS: MAGNESIUM OXIDE 400 MG TAB PO SCH ×2 (05:51→20:16)
[2017-05-26] MEDS: LEVOTHYROXINE 25 MCG TAB PO SCH (05:51)
[2017-05-26 06:13] LABS: Glucose,Whole Blood 158 mg/dL (75-99)
[2017-05-26 06:40] LABS: Anisocytosis Slight; Basophils % (A) 1 %; CH 33.6; CHCM 33.3; Eosinophils # (A) 0.3 k/uL (0-0.7); Eosinophils % (A) 5 %; HCT 28.8 % (34.0-46.0); HDW 3.54; HGB 9.3 gm/dL (11.4-16.0); Luc # (Auto) 0.21; Luc % (Auto) 4; Lymphocytes # (A) 1.4 k/uL (1.0-4.8); Lymphocytes % (A) 23 %; MCH 32.9 pg (25.0-35.0); MCHC 32.4 g/dL (31.0-37.0); MCV 101.6 fL (80.0-100.0); Macrocytosis Slight; Monocytes # (A) 0.4 k/uL (0-1.0); Monocytes % (A) 6 %; Neutrophils # (A) 3.8 k/uL (1.3-7.7); Neutrophils % (A) 63 %; Poikilocytosis Slight; RBC 2.84 m/uL (3.80-5.40); RDW 16.4 % (11.5-15.5); WBC 6.1 k/uL (3.8-10.6); WBC (Perox) 6.59
[2017-05-26 06:54] LABS: ALT 27 U/L (9-52); AST 18 U/L (14-36); Alkaline Phosphatase 86 U/L (38-126); Anion Gap 9 mmol/L; Blood Urea Nitrogen 29 mg/dL (7-17); Calcium 8.8 mg/dL (8.4-10.2); Carbon Dioxide 22 mmol/L (22-30); Chloride 108 mmol/L (98-107); Glucose 163 mg/dL (74-99); Magnesium 1.9 mg/dL (1.6-2.3); Non-African American GFR(MDRD) 54 (>60 ml/min/1.73 sqM); Potassium 4.3 mmol/L (3.5-5.1); Sodium 139 mmol/L (137-145); Total Bilirubin 0.4 mg/dL (0.2-1.3); Total Protein 5.5 g/dL (6.3-8.2)
[2017-05-26] MEDS: INSULIN LISPRO (humaLOG) 300 UNIT/3 ML VIAL SQ SCH ×4 (07:00→21:48)
--- NOTE | 2017-05-26 07:31 | ECHOF ---
Referral Reason:nstemi MEASUREMENTS -------- HEIGHT: 162.6 cm WEIGHT: 86.2 kg BP: 167/106 RVIDd: 2.8 cm (< 3.3) IVSd: 1.2 cm (0.6 - 1.1) LVIDd: 6.1 cm (3.9 - 5.3) LVPWd: 1.1 cm (0.6 - 1.1) IVSs: 1.6 cm LVIDs: 4.7 cm LVPWs: 1.3 cm LA Diam: 4.2 cm (2.7 - 3.8) LAESV Index (A-L): 31.08 ml/m Ao Diam: 3.1 cm (2.0 - 3.7) AV Cusp: 2.2 cm (1.5 - 2.6) MV EXCURSION: 10.759 mm (> 18.000) MV EF SLOPE: 29 mm/s (70 - 150) EPSS: 1.9 cm RAP: 5.00 mmHg RVSP: 37.02 mmHg FINDINGS -------- This was a technically adequate study. The left ventricle is moderately dilated. There is borderline concentric left ventricular hypertrophy. Overall left ventricular systolic function is moderate-severely impaired with, an EF between 30 - 35 %. Basal anteroseptal LV wall motion is hypokinetic. Mid anteroseptal LV wall motion is hypokinetic. The right ventricle is normal in size. LA is midly dilated 29-33ml/m2. The right atrium was not well visualized. There is mild aortic valve sclerosis. Mild mitral annular calcification present. Mild tricuspid regurgitation present. There is mild pulmonary hypertension. The right ventricular systolic pressure, as measured by Doppler, is 37.02mmHg. Trace/mild (physiologic) pulmonic regurgitation. The aortic root size is normal. Small inferior vena cava consistent with a right atrial pressure of 5 mmHg. There is no pericardial effusion. CONCLUSIONS -------- 1. This was a technically adequate study. 2. There is mild aortic valve sclerosis. 3. Mild mitral annular calcification present. 4. Mild tricuspid regurgitation present. 5. There is mild pulmonary hypertension. 6. The right ventricular systolic pressure, as measured by Doppler, is 37.02mmHg. 7. Trace/mild (physiologic) pulmonic regurgitation. 8. The aortic root size is normal. 9. Small inferior vena cava consistent with a right atrial pressure of 5 mmHg. 10. There is no pericardial effusion. 11. The left ventricle is moderately dilated. 12. There is borderline concentric left ventricular hypertrophy. 13. Overall left ventricular systolic function is moderate-severely impaired with, an EF between 30 - 35 %. 14. Basal anteroseptal LV wall motion is hypokinetic. 15. Mid anteroseptal LV wall motion is hypokinetic. 16. The right ventricle is normal in size. 17. LA is midly dilated 29-33ml/m2. 18. The right atrium was not well visualized. WELLNESS ASSISTANT: Kristi Ward RDCS
--- NOTE | 2017-05-26 09:53 | P.PN ---
Subjective Patient admitted to the hospital for an acute FL. Scheduled for heart catheterization today. No further chest pain. Still having some right flank pain there is evidence of bruising. Pain controlled with pain medications. Patient also having more swelling in the left leg and evidence of some mild cellulitis. She is currently on Rocephin for UTI. Patient denies any chest pain. He does omit to some shortness of breath and fatigue with ambulating. Last bowel movement 4 days ago. Denies any burning with urination. Objective - Vital Signs Vital signs: Vital Signs Temp 96.6 F L 05/26/17 07:58 Pulse 51 L 05/26/17 07:58 Resp 18 05/26/17 07:58 BP 111/74 05/26/17 07:58 Pulse Ox 97 05/26/17 07:58 Intake & Output 05/25/17 05/26/17 05/26/17 18:59 06:59 18:59 Intake Total 770 737 Balance 770 737 Weight 76.8 kg Intake: IV 737 cefTRIAXone 1,000 mg In 737 Sodium Chloride 0.9% 50 ml @ 100 mls/hr IVPB Q24H [facility] Rx#:[id number] Intake, IV Titration 50 Amount cefTRIAXone 1,000 mg In 50 Sodium Chloride 0.9% 50 ml @ 100 mls/hr IVPB Q24H [facility] Rx#:[id number] Oral 720 Other: Voiding Method Toilet Toilet Toilet Diaper Diaper Diaper # Voids 1 1 - Exam Head normocephalic Neck supple Lungs clear to auscultation bilaterally no wheezing or crackles Heart regular rate and rhythm S1-S2, no rub or gallop Abdomen is soft nontender nondistended positive bowel sounds no hepatosplenomegaly Extremities left leg swelling. Evidence of some cellulitis. There is erythema along the tibia some chronic changes and breakdown of skin. Neuro alert and orientated to 3 - Labs CBC & Chem 7: 05/26/17 06:04 05/26/17 06:04 Labs: Abnormal Lab Results - Last 24 Hours (Table) 05/25/17 05/25/17 05/25/17 Range/Units 11:35 16:36 20:42 RBC (3.80-5.40) m/uL Hgb (11.4-16.0) gm/dL Hct (34.0-46.0) % MCV (80.0-100.0) fL RDW (11.5-15.5) % Chloride (98-107) mmol/L BUN (7-17) mg/dL Glucose (74-99) mg/dL POC Glucose (mg/dL) 209 H 228 H 242 H (75-99) mg/dL Total Protein (6.3-8.2) g/dL Albumin (3.5-5.0) g/dL 05/26/17 05/26/17 05/26/17 Range/Units 06:04 06:04 06:11 RBC 2.84 L (3.80-5.40) m/uL Hgb 9.3 L (11.4-16.0) gm/dL Hct 28.8 L (34.0-46.0) % MCV 101.6 H (80.0-100.0) fL RDW 16.4 H (11.5-15.5) % Chloride 108 H (98-107) mmol/L BUN 29 H (7-17) mg/dL Glucose 163 H (74-99) mg/dL POC Glucose (mg/dL) 158 H (75-99) mg/dL Total Protein 5.5 L (6.3-8.2) g/dL Albumin 2.9 L (3.5-5.0) g/dL Assessment and Plan Plan: 1. Acute non-ST elevation myocardial infarction seen and evaluated by cardiology. Patient scheduled for heart catheterization today 2. History of coronary artery disease with prior stent placement 3. Underlying ischemic cardiomyopathy with known EF of 20% currently compensated 4. Essential hypertension: Blood pressure well-controlled 5. Type 2 diabetes mellitus hold oral agents and continue sliding scale insulin 6. Paroxysmal atrial fibrillation on anticoagulation with Eliquis. Which is on hold for procedure 7. Mixed hyperlipidemia 8. Mild acute kidney injury, will hold nephrotoxic. Kidney functions did improve with IV fluids. 9. Constipation add Colace 10. Left lower extremity cellulitis. Continue with current antibiotics and monitoring I performed an examination of the patient and discussed their management with the physician Dyed Yarn Operator. I have reviewed the Physician Dyed Yarn Operator's notes and agree with the documented findings and plan of care
[2017-05-26] MEDS ORDERED: ASPIRIN 325 MG TAB PO SCH (11:00)
--- NOTE | 2017-05-26 11:10 | XR ---
EXAMINATION TYPE: XR chest 1V portable DATE OF EXAM: 05/26/2017 COMPARISON: 05/22/2017 HISTORY: Shortness of breath TECHNIQUE: Frontal and lateral views of the chest are obtained. FINDINGS: Scattered senescent parenchymal changes noted. Hyperinflation compatible with COPD. No evidence for infiltrate. No evidence for atelectasis. Heart size is enlarged. Mediastinal structures are stable and grossly unremarkable. No evidence for hilar prominence. Degenerative changes dorsal spine. IMPRESSION: 1. No evidence for acute pulmonary disease.
[2017-05-26] MEDS: DOCUSATE 100 MG CAP PO SCH ×2 (11:17→20:16)
[2017-05-26] MEDS ORDERED: LIDOCAINE 2% INJ 20 MG/ML (20 ML MDV) ONE (11:49)
[2017-05-26] MEDS ORDERED: diphenhydrAMINE 50 MG/ML 1 ML VIAL ONE (12:08)
[2017-05-26] MEDS ORDERED: fentaNYL (PF) 50 MCG/ML 2 ML AMP ONE (12:08)
[2017-05-26] MEDS ORDERED: IV FLUID CONTINUATION 1,000 ML IV ONE (12:13)
[2017-05-26] MEDS ORDERED: SODIUM CHLORIDE 0.9% 1,000 ML IV ONE (12:14)
[2017-05-26] MEDS ORDERED: diphenhydrAMINE 50 MG/ML 1 ML VIAL IVP ONE (12:35)
[2017-05-26] MEDS ORDERED: fentaNYL (PF) 50 MCG/ML 2 ML AMP IV ONE (12:35)
[2017-05-26] MEDS ORDERED: LIDOCAINE 2% INJ 20 MG/ML SQ ONE (12:40)
[2017-05-26] MEDS ORDERED: BIVALIRUDIN BOLUS 250 MG/50 ML IV ONE (12:56)
[2017-05-26] MEDS ORDERED: CLOPIDOGREL 75 MG TAB ONE (12:57)
[2017-05-26] MEDS ORDERED: BIVALIRUDIN 250 MG in SODIUM CHLORIDE 0.9% 50 ML IV ONE (12:57)
[2017-05-26] MEDS ORDERED: CLOPIDOGREL 75 MG TAB PO ONE (13:02)
[2017-05-26] MEDS ORDERED: IODIXANOL 320 MG/ML 100 ML INTRAARTER ONE (13:35)
[2017-05-26] MEDS ORDERED: MAG HYDROX/AL HYDROX/SIMETH 30 ML CUP PO PRN (13:41)
[2017-05-26] MEDS ORDERED: ATROPINE SULFATE 0.1 MG/ML 10ML SYRINGE IV PRN (13:41)
[2017-05-26] MEDS ORDERED: NITROGLYCERIN SL TABS 0.4 MG TAB SUBLINGUAL PRN (13:41)
[2017-05-26] MEDS ORDERED: ZOLPIDEM 5 MG TAB PO PRN (13:41)
[2017-05-26] MEDS ORDERED: RX INFO: IV CONTRAST WAS GIVEN 1 EACH MISC MISCELLANE PRN (13:41)
[2017-05-26] MEDS ORDERED: SODIUM CHLORIDE 0.9% 1,000 ML IV SCH (14:15)
[2017-05-26 14:40] LABS: Glucose,Whole Blood 136 mg/dL (75-99)
[2017-05-26 17:04] LABS: Glucose,Whole Blood 181 mg/dL (75-99)
--- NOTE | 2017-05-26 19:56 | PTCA ---
PERCUTANEOUSTRANS CORORONARY ANGIOGRAPHY Mrs. Cam is a 77-year-old female with a known history of coronary artery disease who presented with unk-BJ-mwgsdyg-elevation myocardial infarction. She underwent cardiac catheterization and was found to have significant stenosis in the diagonal branch through the saphenous vein graft. In view of that, recommendation was made regarding angioplasty and stenting. The procedure as well as risks and complications were discussed with the patient, who was in full understanding and agreement. PROCEDURE: Using a 6-Ukrainian left coronary artery bypass graft, the saphenous vein graft to the diagonal branch was cannulated. Following that, a 0.014 advanced medium weight J-wire was advanced across the lesion and positioned distally. Attempts to advance a 2.25 x 12 mm, 2.0 x 8 mm and a 1.5 x 6 mm Trek balloon were unsuccessful because of the severe calcification and the angulation. Attempts to pass a second 0.014 Whisper J-wire into the distal diagonal branch were unsuccessful as well. At that point, the guiding catheter, the balloon and guidewire were removed. The sheath was removed. Hemostasis was obtained with deployment of an Angio-Seal. There was no immediate complication. Patient was returned to her room in stable condition. Of note, the patient received Angiomax per protocol as well as oral loading dose of clopidogrel. She had no chest discomfort or EKG changes. RESULTS: Unsuccessful angioplasty of the diagonal branch with inability to advance the balloon because of severe calcification and severe angulation of the vessel. Those findings and recommendations were discussed with the patient and her family, who are in full understanding and agreement. Duration of the procedure was 55 minutes. VENECIA / NAPOLEONN: [id number] /
[2017-05-26] MEDS: PREGABALIN 75 MG CAP PO SCH (20:16)
[2017-05-26] MEDS: ATORVASTATIN 40 MG TAB PO SCH (20:17)
[2017-05-26 21:28] LABS: Glucose,Whole Blood 251 mg/dL (75-99)
[2017-05-26] MEDS: INSULIN GLARGINE 100 UNIT/ML 10 ML VIAL SQ SCH (21:47)
[2017-05-27 05:59] LABS: Glucose,Whole Blood 190 mg/dL (75-99)
[2017-05-27 06:33] LABS: Anisocytosis Slight; Basophils % (A) 0 %; CH 32.1; CHCM 31.8; Eosinophils # (A) 0.3 k/uL (0-0.7); Eosinophils % (A) 4 %; HCT 27.3 % (34.0-46.0); HDW 3.57; HGB 8.9 gm/dL (11.4-16.0); Hypochromasia Moderate; Luc # (Auto) 0.19; Luc % (Auto) 3; Lymphocytes # (A) 1.1 k/uL (1.0-4.8); Lymphocytes % (A) 18 %; MCH 33.1 pg (25.0-35.0); MCHC 32.7 g/dL (31.0-37.0); MCV 101.4 fL (80.0-100.0); Macrocytosis Slight; Mean Platelet Volume 7.7; Monocytes # (A) 0.3 k/uL (0-1.0); Monocytes % (A) 6 %; Neutrophils # (A) 3.9 k/uL (1.3-7.7); Neutrophils % (A) 68 %; Poikilocytosis Slight; RBC 2.69 m/uL (3.80-5.40); RDW 16.2 % (11.5-15.5); WBC 5.7 k/uL (3.8-10.6); WBC (Perox) 5.88
[2017-05-27] MEDS: LEVOTHYROXINE 25 MCG TAB PO SCH (06:46)
[2017-05-27] MEDS: PANTOPRAZOLE 40 MG TABLET PO SCH (06:46)
[2017-05-27] MEDS: INSULIN LISPRO (humaLOG) 300 UNIT/3 ML VIAL SQ SCH ×4 (06:47→20:42)
[2017-05-27 06:49] LABS: ALT 31 U/L (9-52); AST 24 U/L (14-36); Alkaline Phosphatase 97 U/L (38-126); Anion Gap 7 mmol/L; Blood Urea Nitrogen 21 mg/dL (7-17); Calcium 8.9 mg/dL (8.4-10.2); Carbon Dioxide 24 mmol/L (22-30); Chloride 110 mmol/L (98-107); Glucose 190 mg/dL (74-99); Magnesium 1.8 mg/dL (1.6-2.3); Non-African American GFR(MDRD) 59 (>60 ml/min/1.73 sqM); Phosphorous 2.6 mg/dL (2.5-4.5); Potassium 4.8 mmol/L (3.5-5.1); Sodium 141 mmol/L (137-145); Total Bilirubin 0.3 mg/dL (0.2-1.3); Total Protein 5.4 g/dL (6.3-8.2)
--- NOTE | 2017-05-27 08:12 | CC ---
CARDIAC CATHETERIZATION REPORT Mrs. Cam is a 77-year-old female with a known history of coronary artery disease status post coronary artery bypass grafting, severe ischemic cardiomyopathy, who presented with symptoms of chest discomfort and evidence of elevation of troponin consistent with non ST-segment elevation myocardial infarction. In view of that recommendation made regarding cardiac catheterization, the procedures, risks, and complications were discussed with the patient who was in full understanding and agreement. PROCEDURE: The patient was brought to the [facility] in fasting semisedated state. After receiving fentanyl and Benadryl and achieving moderate conscious sedated state, she was prepped and draped in sterile fashion using Xylocaine anesthesia and Seldinger technique, a 6- Rwandan sheath was introduced in the right femoral artery. Selective right and left angiography performed using 6-Rwandan 4 bend right Josette catheter. Multiple views of the coronary artery including hemiaxial views were obtained. Following that the 6- Rwandan right Josette catheter was used to cannulate the saphenous vein graft to the right coronary artery, saphenous vein graft to the diagonal branch, and MOLINA to the LAD. Images of the grafts were obtained. Following that 6-Rwandan tight pigtail catheters catheter was introduced into the left ventricular and pressures were calculated. Following that catheter removed. Images were reviewed. FINDINGS: Fluoroscopy: There was severe calcification involving the coronary arteries. Left main: This is a large-sized vessel bifurcating into left circumflex and left anterior descending artery. Left main coronary artery is without any obstructive coronary artery disease. Left anterior descending artery: This vessel is totally occluded proximally with no antegrade flow. Left circumflex: This vessel is occluded proximally after giving rise to a small diffusely diseased obtuse marginal branch with no significant antegrade flow. Right coronary artery: This vessel is totally occluded proximally with no antegrade flow. Saphenous vein graft to the right coronary artery: This vessel is totally occluded proximally. Saphenous vein graft to diagonal branch: The proximal distal anastomotic sites are patent. There is retrograde flow in the first obtuse marginal branch. The first diagonal branch is patent. There is a 99% stenosis in the mid vessel. The vessel beyond that is smaller in caliber. MOLINA to the LAD: The distal anastomotic site is patent. The flow into the LAD is brisk. There is no evidence of significant obstructive disease. Collaterals: There is collateral from the LAD toward the right PDA. Left ventriculogram: Left ventriculogram is not performed. Hemodynamics: There was no gradient across the aortic valve. The left ventricular end- diastolic pressure was 24-28 mmHg. CONCLUSION: 1. Severe triple-vessel coronary artery disease. 2. Patent MOLINA to LAD. 3. Patent saphenous vein graft to the diagonal branch with significant obstructive disease in the mid diagonal branch. 4. Elevated left ventricle end-diastolic pressure. 5. Occluded saphenous vein graft to the right coronary artery. RECOMMENDATION: In view of finding anatomy, recommend proceeding with angioplasty and stenting of the diagonal branch. The procedures, risks, and complications were discussed with the patient who are in full understanding and agreement. MMODL / IJN: [id number] /
[2017-05-27] MEDS: ASPIRIN 81 MG PO SCH (10:46)
[2017-05-27] MEDS: ALLOPURINOL 300 MG TAB PO SCH (10:46)
[2017-05-27] MEDS: DOCUSATE 100 MG CAP PO SCH ×3 (10:46→20:00)
[2017-05-27] MEDS: METOPROLOL TARTRATE 50 MG TAB PO SCH ×3 (10:47→21:07)
[2017-05-27] MEDS: MAGNESIUM OXIDE 400 MG TAB PO SCH ×2 (10:47→19:57)
[2017-05-27] MEDS: LISINOPRIL 10 MG TAB PO SCH (10:47)
[2017-05-27] MEDS: ISOSORBIDE MONONITRATE ER 60 MG TAB.ER.24H PO SCH (10:47)
[2017-05-27] MEDS: HYDROcodone/APAP 10-325MG 1 EACH TAB PO PRN (11:33)
[2017-05-27] MEDS: FUROSEMIDE 40 MG TAB PO SCH ×2 (11:54→17:38)
[2017-05-27 11:57] LABS: Glucose,Whole Blood 293 mg/dL (75-99)
[2017-05-27 13:38] VITALS: BMI 28.3
[2017-05-27] MEDS ORDERED: FUROSEMIDE 10 MG/ML 2 ML VIAL IV ONE (14:50)
--- NOTE | 2017-05-27 14:50 | P.PN ---
Subjective Today, patient is stating she has worsening right flank pain. Her and her daughter are not sure if she had a fall or just hit her side at home. There is a small bruise on exam but no hematoma appreciated. Patient has urinary tract infection she was so far treated with IV Levaquin urine culture is positive for E. coli that is resistant to Levaquin. At this time will change IV Levaquin to IV Rocephin and monitor closely. Pain could be related to urinary tract infection. Computed tomography scan of abdomen and pelvis reviewed no significant fluid collection no evidence of hematoma. Patient underwent cardiac catheterization results discussed was Dr. Wall no intervention amenable at this time continue was medical management Patient received significant amount of IV fluid prior to cardiac catheterization due to elevated creatinine, now she is feeling congested and short of breath and unable to lay flat she will be given extra dose of IV Lasix will monitor still tomorrow Objective - Vital Signs Vital signs: Vital Signs Temp 97.6 F 05/27/17 11:58 Pulse 65 05/27/17 11:58 Resp 16 05/27/17 11:58 BP 119/61 05/27/17 11:58 Pulse Ox 97 05/27/17 11:58 Intake & Output 05/26/17 05/27/17 05/27/17 18:59 06:59 18:59 Intake Total 86 915 180 Output Total 2 2 Balance 86 913 178 Weight 77.3 kg 77.3 kg Intake: IV 86 Intake, IV Titration 675 Amount Sodium Chloride 0.9% 1, 675 000 ml @ 75 mls/hr IV . [id number] [facility] Rx#:[id number] Oral 240 180 Output: Urine 1 Stool 2 1 Other: Voiding Method Toilet Diaper # Voids 2 1 - Exam In general patient is alert and oriented 3 in no apparent distress HEENT head normocephalic and atraumatic Neck is supple no JVD no goiter no lymphadenopathy Chest is clear to auscultation no wheezing Cardiac exam reveals regular heart sounds no murmurs Abdomen is soft nontender no organomegaly Extremity exam reveals no edema no cyanosis or clubbing - Labs CBC & Chem 7: 05/27/17 05:55 05/27/17 05:55 Labs: Abnormal Lab Results - Last 24 Hours (Table) 05/26/17 05/26/17 05/27/17 Range/Units 16:57 21:25 05:55 RBC 2.69 L (3.80-5.40) m/uL Hgb 8.9 L (11.4-16.0) gm/dL Hct 27.3 L (34.0-46.0) % MCV 101.4 H (80.0-100.0) fL RDW 16.2 H (11.5-15.5) % Chloride (98-107) mmol/L BUN (7-17) mg/dL Glucose (74-99) mg/dL POC Glucose (mg/dL) 181 H 251 H (75-99) mg/dL Total Protein (6.3-8.2) g/dL Albumin (3.5-5.0) g/dL 05/27/17 05/27/17 05/27/17 Range/Units 05:55 05:57 11:53 RBC (3.80-5.40) m/uL Hgb (11.4-16.0) gm/dL Hct (34.0-46.0) % MCV (80.0-100.0) fL RDW (11.5-15.5) % Chloride 110 H (98-107) mmol/L BUN 21 H (7-17) mg/dL Glucose 190 H (74-99) mg/dL POC Glucose (mg/dL) 190 H 293 H (75-99) mg/dL Total Protein 5.4 L (6.3-8.2) g/dL Albumin 2.9 L (3.5-5.0) g/dL Microbiology - Last 24 Hours (Table) 05/26/17 11:30 Gram Stain - Preliminary Leg - Left Wound Culture - Preliminary Assessment and Plan Plan: 1. Acute non-ST elevation myocardial infarction seen and evaluated by cardiology. Awaiting decision regarding possible left heart catheterization tomorrow., 2. History of coronary artery disease with prior stent placement 3. Underlying ischemic cardiomyopathy with known EF of 20% currently compensated 4. Essential hypertension: Blood pressure well-controlled 5. Type 2 diabetes mellitus hold oral agents and continue sliding scale insulin 6. Paroxysmal atrial fibrillation on anticoagulation with Eliquis 7. Mixed hyperlipidemia 8. Mild acute kidney injury, will hold nephrotoxic Plan at this time is to proceed with cardiac catheterization with Dr. Wall tomorrow, this was delayed from today till tomorrow due to elevated creatinine at 1.2 patient is received IV hydration, now she is feeling congested and having shortness of breath and and able to lay down flat she will receive IV Lasix will continue to monitor till tomorrow Will switch antibiotic to IV Rocephin and monitor closely due to penicillin ALLERGY Pain is uncontrolled will change [place] to 10/325 every 6 hours when necessary Will monitor closely
--- NOTE | 2017-05-27 14:57 | P.PN ---
Subjective Principal diagnosis: Non STEMI This is a pleasant 77-year-old female who follows regularly with Dr. Wall in the office. She has a known history of coronary artery disease with prior bypass surgery as well as stenting in the past. History of ischemic cardiomyopathy with prior AICD implantation, paroxysmal atrial fibrillation, on Eliquis, diabetes, hypertension, mild renal failure, she presented to the hospital with a non-Q-wave myocardial infarction. Troponin 0.1, 11.0 and 5.6. EKG on admission showed a normal sinus rhythm with lateral ST depression. She also states that she had a fall at home recently, injuring her right flank area. CT of the abdomen and pelvis did not reveal any evidence of bleed. She underwent cardiac catheterization by Dr. Aj yesterday that showed patent MOLINA to the LAD, patent SVG to the diagonal branch with significant obstructive disease in the mid diagonal branch occluded SVG to the right coronary artery. Attempted angioplasty of the diagonal branch was unsuccessful due to inability to advance the balloon because of severe calcification and severe angulation of the vessel. She has been chest pain-free. She is experiencing some increasing shortness of breath and some lower extremity edema this morning, her Lasix has been on hold. Her renal function has improved since admission with a BUN of 21 and creatinine 0.92. Objective - Vital Signs Vital signs: Vital Signs Temp 97.6 F 05/27/17 11:58 Pulse 65 05/27/17 11:58 Resp 16 05/27/17 11:58 BP 119/61 05/27/17 11:58 Pulse Ox 97 05/27/17 11:58 Intake & Output 05/26/17 05/27/17 05/27/17 18:59 06:59 18:59 Intake Total 86 915 180 Output Total 2 2 Balance 86 913 178 Weight 77.3 kg 77.3 kg Intake: IV 86 Intake, IV Titration 675 Amount Sodium Chloride 0.9% 1, 675 000 ml @ 75 mls/hr IV . [id number] [facility] Rx#:[id number] Oral 240 180 Output: Urine 1 Stool 2 1 Other: Voiding Method Toilet Diaper # Voids 2 1 - Exam PHYSICAL EXAMINATION: HEENT: Head is atraumatic, normocephalic. Pupils equal, round. Neck is supple. There is no elevated jugular venous pressure. HEART EXAMINATION: Heart S1 and S2 irregularly irregular a systolic murmur is heard. CHEST EXAMINATION: Lungs are clear to auscultation and precussion. No chest wall tenderness is noted on palpation or with deep breathing. ABDOMEN: Soft, nontender. Bowel sounds are heard. No organomegaly noted. Patient does have some ecchymosis noted at the right flank area, tender. EXTREMITIES: 2+ peripheral pulses with evidence of mild peripheral edema and no calf tenderness noted. Right groin puncture site soft without hematoma. NEUROLOGIC patient is awake, alert and oriented x3. - Labs CBC & Chem 7: 05/27/17 05:55 05/27/17 05:55 Labs: Abnormal Lab Results - Last 24 Hours (Table) 05/26/17 05/26/17 05/27/17 Range/Units 16:57 21:25 05:55 RBC 2.69 L (3.80-5.40) m/uL Hgb 8.9 L (11.4-16.0) gm/dL Hct 27.3 L (34.0-46.0) % MCV 101.4 H (80.0-100.0) fL RDW 16.2 H (11.5-15.5) % Chloride (98-107) mmol/L BUN (7-17) mg/dL Glucose (74-99) mg/dL POC Glucose (mg/dL) 181 H 251 H (75-99) mg/dL Total Protein (6.3-8.2) g/dL Albumin (3.5-5.0) g/dL 05/27/17 05/27/17 05/27/17 Range/Units 05:55 05:57 11:53 RBC (3.80-5.40) m/uL Hgb (11.4-16.0) gm/dL Hct (34.0-46.0) % MCV (80.0-100.0) fL RDW (11.5-15.5) % Chloride 110 H (98-107) mmol/L BUN 21 H (7-17) mg/dL Glucose 190 H (74-99) mg/dL POC Glucose (mg/dL) 190 H 293 H (75-99) mg/dL Total Protein 5.4 L (6.3-8.2) g/dL Albumin 2.9 L (3.5-5.0) g/dL Microbiology - Last 24 Hours (Table) 05/26/17 11:30 Gram Stain - Preliminary Leg - Left Wound Culture - Preliminary Assessment and Plan Plan: Assessment and plan #1 acute non-ST elevation myocardial infarction #2 known history of coronary artery disease with prior bypass surgery and stent placement #3 ischemic cardiomyopathy with prior AICD implant #4 hypertension # 5 diabetes #6 paroxysmal atrial fibrillation on Eliquis for anticoagulation #7 hyperlipidemia #8 mild acute kidney injury #9 unsuccessful angioplasty of the occluded SVG to the RCA From cardiology perspective, we will resume patient's Lasix today. We will follow the patient's renal function. Depending on patient's clinical status patient may be discharged home within the next 24-48 hours. The above dictated assessment and findings were discussed with signing physician. The impression and plan of care have been directed as dictated. Rebeka Fitzpatrick, Nurse Practitioner, acting as scribe for signing physician.
[2017-05-27 16:46] LABS: Glucose,Whole Blood 303 mg/dL (75-99)
[2017-05-27] MEDS: PREGABALIN 75 MG CAP PO SCH (19:57)
[2017-05-27] MEDS: ATORVASTATIN 40 MG TAB PO SCH (19:58)
[2017-05-27 20:29] LABS: Glucose,Whole Blood 254 mg/dL (75-99)
[2017-05-27] MEDS: INSULIN GLARGINE 100 UNIT/ML 10 ML VIAL SQ SCH (20:42)
[2017-05-28] MEDS: HYDROcodone/APAP 10-325MG 1 EACH TAB PO PRN ×3 (03:03→20:22)
[2017-05-28 05:46] LABS: Glucose,Whole Blood 155 mg/dL (75-99)
[2017-05-28 06:19] LABS: Anisocytosis Slight; Basophils % (A) 1 %; CH 33.7; CHCM 33.6; Eosinophils # (A) 0.2 k/uL (0-0.7); Eosinophils % (A) 4 %; HCT 24.6 % (34.0-46.0); HDW 3.52; Luc # (Auto) 0.17; Luc % (Auto) 3; Lymphocytes # (A) 1.2 k/uL (1.0-4.8); Lymphocytes % (A) 21 %; MCH 32.8 pg (25.0-35.0); MCHC 32.4 g/dL (31.0-37.0); Macrocytosis Slight; Mean Platelet Volume 8.4; Monocytes # (A) 0.3 k/uL (0-1.0); Monocytes % (A) 6 %; Neutrophils # (A) 3.8 k/uL (1.3-7.7); Neutrophils % (A) 66 %; Poikilocytosis Slight; RBC 2.44 m/uL (3.80-5.40); WBC 5.8 k/uL (3.8-10.6); WBC (Perox) 5.99
[2017-05-28 06:40] LABS: ALT 28 U/L (9-52); AST 21 U/L (14-36); Alkaline Phosphatase 90 U/L (38-126); Anion Gap 5 mmol/L; Blood Urea Nitrogen 20 mg/dL (7-17); Carbon Dioxide 26 mmol/L (22-30); Chloride 109 mmol/L (98-107); Glucose 143 mg/dL (74-99); Non-African American GFR(MDRD) 59 (>60 ml/min/1.73 sqM); Potassium 4.1 mmol/L (3.5-5.1); Sodium 140 mmol/L (137-145); Total Bilirubin 0.3 mg/dL (0.2-1.3)
[2017-05-28] MEDS: LEVOTHYROXINE 25 MCG TAB PO SCH (06:50)
[2017-05-28] MEDS: PANTOPRAZOLE 40 MG TABLET PO SCH (06:50)
[2017-05-28] MEDS: INSULIN LISPRO (humaLOG) 300 UNIT/3 ML VIAL SQ SCH ×4 (06:50→21:05)
[2017-05-28] MEDS: METOPROLOL TARTRATE 50 MG TAB PO SCH ×2 (08:47→20:17)
[2017-05-28] MEDS: ISOSORBIDE MONONITRATE ER 60 MG TAB.ER.24H PO SCH (08:47)
[2017-05-28] MEDS: LISINOPRIL 10 MG TAB PO SCH (08:47)
[2017-05-28] MEDS: MAGNESIUM OXIDE 400 MG TAB PO SCH ×2 (08:48→20:17)
[2017-05-28] MEDS: DOCUSATE 100 MG CAP PO SCH ×2 (08:48→20:17)
[2017-05-28] MEDS: ALLOPURINOL 300 MG TAB PO SCH (08:48)
[2017-05-28] MEDS: FUROSEMIDE 40 MG TAB PO SCH ×2 (08:48→17:30)
[2017-05-28] MEDS: ASPIRIN 81 MG PO SCH (08:48)
--- NOTE | 2017-05-28 09:36 | P.PN ---
Subjective Today, patient is stating she has worsening right flank pain. Her and her daughter are not sure if she had a fall or just hit her side at home. There is a small bruise on exam but no hematoma appreciated. Patient has urinary tract infection she was so far treated with IV Levaquin urine culture is positive for E. coli that is resistant to Levaquin. At this time will change IV Levaquin to IV Rocephin and monitor closely. Pain could be related to urinary tract infection. Computed tomography scan of abdomen and pelvis reviewed no significant fluid collection no evidence of hematoma. Patient underwent cardiac catheterization results discussed with Dr. Wall no intervention amenable at this time continue with medical management Patient received significant amount of IV fluid prior to cardiac catheterization due to elevated creatinine, now she is feeling congested and short of breath and unable to lay flat she will be given extra dose of IV Lasix will monitor still tomorrow Objective - Vital Signs Vital signs: Vital Signs Temp 97.8 F 05/28/17 08:49 Pulse 82 05/28/17 08:49 Resp 16 05/28/17 08:49 BP 124/54 05/28/17 08:49 Pulse Ox 99 05/28/17 08:49 Intake & Output 05/27/17 05/28/17 05/28/17 18:59 06:59 18:59 Intake Total 430 118 Output Total 2 200 1 Balance 428 -200 117 Weight 77.3 kg 77.5 kg Intake: Oral 430 118 Output: Urine 1 200 Stool 1 1 Other: Voiding Method Toilet Diaper # Voids 1 - Exam In general patient is alert and oriented 3 in no apparent distress HEENT head normocephalic and atraumatic Neck is supple no JVD no goiter no lymphadenopathy Chest is clear to auscultation no wheezing Cardiac exam reveals regular heart sounds no murmurs Abdomen is soft nontender no organomegaly Extremity exam reveals no edema no cyanosis or clubbing - Labs CBC & Chem 7: 05/28/17 05:58 05/28/17 05:58 Labs: Abnormal Lab Results - Last 24 Hours (Table) 05/27/17 05/27/17 05/27/17 Range/Units 11:53 16:29 20:27 RBC (3.80-5.40) m/uL Hgb (11.4-16.0) gm/dL Hct (34.0-46.0) % MCV (80.0-100.0) fL RDW (11.5-15.5) % Chloride (98-107) mmol/L BUN (7-17) mg/dL Glucose (74-99) mg/dL POC Glucose (mg/dL) 293 H 303 H 254 H (75-99) mg/dL Total Protein (6.3-8.2) g/dL Albumin (3.5-5.0) g/dL 05/28/17 05/28/17 05/28/17 Range/Units 05:45 05:58 05:58 RBC 2.44 L (3.80-5.40) m/uL Hgb 8.0 L (11.4-16.0) gm/dL Hct 24.6 L (34.0-46.0) % MCV 101.0 H (80.0-100.0) fL RDW 17.0 H (11.5-15.5) % Chloride 109 H (98-107) mmol/L BUN 20 H (7-17) mg/dL Glucose 143 H (74-99) mg/dL POC Glucose (mg/dL) 155 H (75-99) mg/dL Total Protein 5.0 L (6.3-8.2) g/dL Albumin 2.7 L (3.5-5.0) g/dL Assessment and Plan Plan: 1. Acute non-ST elevation myocardial infarction seen and evaluated by cardiology. Awaiting decision regarding possible left heart catheterization tomorrow., 2. History of coronary artery disease with prior stent placement, patient underwent cardiac catheterization was Dr. Wall no intervention and mandible at this time 3. Underlying ischemic cardiomyopathy with known EF of 20% currently compensated 4. Essential hypertension: Blood pressure well-controlled 5. Type 2 diabetes mellitus hold oral agents and continue sliding scale insulin 6. Paroxysmal atrial fibrillation on anticoagulation with Eliquis 7. Mixed hyperlipidemia 8. Mild acute kidney injury, will hold nephrotoxic 9. Large bruise/hematoma on the right upper quadrant at this time patient is off any blood thinners 10. For DVT prophylaxis patient encouraged to ambulate 11. Fluid overload with acute systolic congestive heart failure exacerbation, at this time receiving IV Lasix, will monitor closely
[2017-05-28] MEDS ORDERED: FUROSEMIDE 10 MG/ML 2 ML VIAL IV ONE ×2 (09:45→10:54)
--- NOTE | 2017-05-28 10:57 | P.PN ---
Subjective Principal diagnosis: Non STEMI This is a pleasant 77-year-old female who follows regularly with Dr. Wall in the office. She has a known history of coronary artery disease with prior bypass surgery as well as stenting in the past. History of ischemic cardiomyopathy with prior AICD implantation, paroxysmal atrial fibrillation, on Eliquis, diabetes, hypertension, mild renal failure, she presented to the hospital with a non-Q-wave myocardial infarction. Troponin 0.1, 11.0 and 5.6. EKG on admission showed a normal sinus rhythm with lateral ST depression. She also states that she had a fall at home recently, injuring her right flank area. CT of the abdomen and pelvis did not reveal any evidence of bleed. She underwent cardiac catheterization by Dr. Aj yesterday that showed patent MOLINA to the LAD, patent SVG to the diagonal branch with significant obstructive disease in the mid diagonal branch occluded SVG to the right coronary artery. Attempted angioplasty of the diagonal branch was unsuccessful due to inability to advance the balloon because of severe calcification and severe angulation of the vessel. She has been chest pain-free. Patient's Lasix 40 mg by mouth twice a day was resumed yesterday. This morning, she continues to complain of some shortness of breath with activity and orthopnea. Her renal function has improved since admission with a BUN of 20 and creatinine 0.92. Objective - Vital Signs Vital signs: Vital Signs Temp 97.8 F 05/28/17 08:49 Pulse 82 05/28/17 08:49 Resp 16 05/28/17 08:49 BP 124/54 05/28/17 08:49 Pulse Ox 99 05/28/17 08:49 Intake & Output 05/27/17 05/28/17 05/28/17 18:59 06:59 18:59 Intake Total 430 118 Output Total 2 200 1 Balance 428 -200 117 Weight 77.3 kg 77.5 kg Intake: Oral 430 118 Output: Urine 1 200 Stool 1 1 Other: Voiding Method Toilet Diaper # Voids 1 - Exam PHYSICAL EXAMINATION: HEENT: Head is atraumatic, normocephalic. Pupils equal, round. Neck is supple. There is no elevated jugular venous pressure. HEART EXAMINATION: Heart S1 and S2 irregularly irregular a systolic murmur is heard. CHEST EXAMINATION: Lungs are clear to auscultation and precussion. No chest wall tenderness is noted on palpation or with deep breathing. ABDOMEN: Soft, nontender. Bowel sounds are heard. No organomegaly noted. Patient does have some ecchymosis noted at the right flank area, tender. EXTREMITIES: 2+ peripheral pulses with evidence of mild peripheral edema and no calf tenderness noted. Right groin puncture site soft without hematoma. NEUROLOGIC patient is awake, alert and oriented x3. - Labs CBC & Chem 7: 05/28/17 05:58 05/28/17 05:58 Labs: Abnormal Lab Results - Last 24 Hours (Table) 05/27/17 05/27/17 05/27/17 Range/Units 11:53 16:29 20:27 RBC (3.80-5.40) m/uL Hgb (11.4-16.0) gm/dL Hct (34.0-46.0) % MCV (80.0-100.0) fL RDW (11.5-15.5) % Chloride (98-107) mmol/L BUN (7-17) mg/dL Glucose (74-99) mg/dL POC Glucose (mg/dL) 293 H 303 H 254 H (75-99) mg/dL Total Protein (6.3-8.2) g/dL Albumin (3.5-5.0) g/dL 05/28/17 05/28/17 05/28/17 Range/Units 05:45 05:58 05:58 RBC 2.44 L (3.80-5.40) m/uL Hgb 8.0 L (11.4-16.0) gm/dL Hct 24.6 L (34.0-46.0) % MCV 101.0 H (80.0-100.0) fL RDW 17.0 H (11.5-15.5) % Chloride 109 H (98-107) mmol/L BUN 20 H (7-17) mg/dL Glucose 143 H (74-99) mg/dL POC Glucose (mg/dL) 155 H (75-99) mg/dL Total Protein 5.0 L (6.3-8.2) g/dL Albumin 2.7 L (3.5-5.0) g/dL Assessment and Plan Plan: Assessment and plan #1 acute non-ST elevation myocardial infarction #2 known history of coronary artery disease with prior bypass surgery and stent placement #3 ischemic cardiomyopathy with prior AICD implant #4 hypertension # 5 diabetes #6 paroxysmal atrial fibrillation on Eliquis for anticoagulation #7 hyperlipidemia #8 mild acute kidney injury #9 unsuccessful angioplasty of the occluded SVG to the RCA From cardiology perspective, we will give the patient an additional dose of Lasix 40 mg IV push this morning. We will follow the patient's renal function. Depending on patient's clinical status patient may be discharged home within the next 24-48 hours. The above dictated assessment and findings were discussed with signing physician. The impression and plan of care have been directed as dictated. Rebeka Fitzpatrick, Nurse Practitioner, acting as scribe for signing physician.
[2017-05-28 11:38] LABS: % Iron Saturation 17.7 % (20-50)
[2017-05-28 12:23] LABS: Glucose,Whole Blood 180 mg/dL (75-99)
[2017-05-28 16:53] LABS: Glucose,Whole Blood 241 mg/dL (75-99)
[2017-05-28] MEDS: PREGABALIN 75 MG CAP PO SCH (20:17)
[2017-05-28] MEDS: ATORVASTATIN 40 MG TAB PO SCH (20:17)
[2017-05-28 20:45] LABS: Glucose,Whole Blood 240 mg/dL (75-99)
[2017-05-28] MEDS: INSULIN GLARGINE 100 UNIT/ML 10 ML VIAL SQ SCH (21:06)
[2017-05-29 02:13] LABS: Glucose,Whole Blood 219 mg/dL (75-99)
[2017-05-29] MEDS: LEVOTHYROXINE 25 MCG TAB PO SCH (06:04)
[2017-05-29 06:06] LABS: Glucose,Whole Blood 198 mg/dL (75-99)
[2017-05-29 06:12] LABS: Anisocytosis Slight; Basophils % (A) 0 %; Eosinophils # (A) 0.2 k/uL (0-0.7); Eosinophils % (A) 3 %; HCT 26.9 % (34.0-46.0); HDW 3.48; HGB 8.6 gm/dL (11.4-16.0); Luc # (Auto) 0.12; Luc % (Auto) 2; Lymphocytes # (A) 1.2 k/uL (1.0-4.8); Lymphocytes % (A) 20 %; MCH 32.4 pg (25.0-35.0); MCHC 32.2 g/dL (31.0-37.0); MCV 100.8 fL (80.0-100.0); Macrocytosis Slight; Mean Platelet Volume 8.2; Monocytes # (A) 0.3 k/uL (0-1.0); Monocytes % (A) 5 %; Neutrophils # (A) 4.2 k/uL (1.3-7.7); Neutrophils % (A) 69 %; Poikilocytosis Slight; RBC 2.67 m/uL (3.80-5.40); RDW 17.2 % (11.5-15.5); WBC (Perox) 6.21
[2017-05-29] MEDS: HYDROcodone/APAP 10-325MG 1 EACH TAB PO PRN ×2 (06:16→18:46)
[2017-05-29 06:32] LABS: ALT 67 U/L (9-52); AST 97 U/L (14-36); Alkaline Phosphatase 216 U/L (38-126); Anion Gap 7 mmol/L; Blood Urea Nitrogen 23 mg/dL (7-17); Calcium 9.4 mg/dL (8.4-10.2); Carbon Dioxide 26 mmol/L (22-30); Chloride 106 mmol/L (98-107); Glucose 197 mg/dL (74-99); Non-African American GFR(MDRD) 54 (>60 ml/min/1.73 sqM); Potassium 4.3 mmol/L (3.5-5.1); Sodium 139 mmol/L (137-145); Total Bilirubin 0.5 mg/dL (0.2-1.3); Total Protein 5.4 g/dL (6.3-8.2)
[2017-05-29] MEDS: INSULIN LISPRO (humaLOG) 300 UNIT/3 ML VIAL SQ SCH ×4 (06:42→21:34)
[2017-05-29] MEDS: PANTOPRAZOLE 40 MG TABLET PO SCH (07:00)
[2017-05-29] MEDS: METOPROLOL TARTRATE 50 MG TAB PO SCH ×2 (07:50→21:29)
[2017-05-29] MEDS: ALLOPURINOL 300 MG TAB PO SCH (07:51)
[2017-05-29] MEDS: ISOSORBIDE MONONITRATE ER 60 MG TAB.ER.24H PO SCH (07:51)
[2017-05-29] MEDS: MAGNESIUM OXIDE 400 MG TAB PO SCH ×2 (07:51→21:29)
[2017-05-29] MEDS: ASPIRIN 81 MG PO SCH (07:51)
[2017-05-29] MEDS: DOCUSATE 100 MG CAP PO SCH ×2 (07:51→21:29)
[2017-05-29] MEDS: FUROSEMIDE 40 MG TAB PO SCH ×2 (07:51→15:57)
[2017-05-29] MEDS: LISINOPRIL 10 MG TAB PO SCH (07:51)
--- NOTE | 2017-05-29 12:40 | P.PN ---
Subjective Principal diagnosis: Non-ST segment elevation IA atrial fibrillation Acute on chronic systolic heart failure Patient is feeling better shortness of breath has improved she is currently on Lasix 40 twice a day which I'm going to continue patient has history of atrial fibrillation I'm going to resume the oral anticoagulant she was on. Hopefully home over the next 24 hours Objective - Vital Signs Vital signs: Vital Signs Temp 97.8 F 05/29/17 07:58 Pulse 93 05/29/17 07:58 Resp 17 05/29/17 07:58 BP 113/65 05/29/17 07:58 Pulse Ox 99 05/29/17 07:58 Intake & Output 05/28/17 05/29/17 05/29/17 18:59 06:59 18:59 Intake Total 554 200 Output Total 3 800 1 Balance 551 -800 199 Weight 76.1 kg Intake: Oral 554 200 Output: Urine 800 Stool 3 1 Other: Voiding Method Toilet Toilet Toilet Diaper Diaper Diaper # Voids 2 2 - Exam Patient is comfortable at rest vital signs are stable chest exam reveals good air entry bilaterally without any crackles or rhonchi heart exam reveals first and second heart sounds no gallop abdomen is soft exam extremities did not reveal any edema per for pulses are felt - Labs CBC & Chem 7: 05/29/17 05:46 05/29/17 05:46 Labs: Abnormal Lab Results - Last 24 Hours (Table) 05/28/17 05/28/17 05/29/17 Range/Units 16:48 20:41 02:11 RBC (3.80-5.40) m/uL Hgb (11.4-16.0) gm/dL Hct (34.0-46.0) % MCV (80.0-100.0) fL RDW (11.5-15.5) % BUN (7-17) mg/dL Glucose (74-99) mg/dL POC Glucose (mg/dL) 241 H 240 H 219 H (75-99) mg/dL AST (14-36) U/L ALT (9-52) U/L Alkaline Phosphatase (38-126) U/L Total Protein (6.3-8.2) g/dL Albumin (3.5-5.0) g/dL 05/29/17 05/29/17 05/29/17 Range/Units 05:46 05:46 06:04 RBC 2.67 L (3.80-5.40) m/uL Hgb 8.6 L (11.4-16.0) gm/dL Hct 26.9 L (34.0-46.0) % MCV 100.8 H (80.0-100.0) fL RDW 17.2 H (11.5-15.5) % BUN 23 H (7-17) mg/dL Glucose 197 H (74-99) mg/dL POC Glucose (mg/dL) 198 H (75-99) mg/dL AST 97 H (14-36) U/L ALT 67 H (9-52) U/L Alkaline Phosphatase 216 H (38-126) U/L Total Protein 5.4 L (6.3-8.2) g/dL Albumin 2.8 L (3.5-5.0) g/dL Microbiology - Last 24 Hours (Table) 05/26/17 11:30 Gram Stain - Final Leg - Left Wound Culture - Final Escherichia coli Assessment and Plan Plan: Acute non-ST segment elevation IA status post cath advised medical therapy Paroxysmal atrial fibrillation History of renal insufficiency Acute exacerbation of chronic systolic heart failure Patient will continue the Lasix resume oral anticoagulant continue the antiplatelet agents
[2017-05-29] MEDS ORDERED: SODIUM FERRIC GLUCONAT-SUCROSE 125 MG in SODIUM CHLORIDE 0.9% 100 ML IVPB ONE (13:53)
--- NOTE | 2017-05-29 14:02 | P.PN ---
Subjective Today, patient is stating she has worsening right flank pain. Her and her daughter are not sure if she had a fall or just hit her side at home. There is a small bruise on exam but no hematoma appreciated. Patient has urinary tract infection she was so far treated with IV Levaquin urine culture is positive for E. coli that is resistant to Levaquin. At this time will change IV Levaquin to IV Rocephin and monitor closely. Pain could be related to urinary tract infection. Computed tomography scan of abdomen and pelvis reviewed no significant fluid collection no evidence of hematoma. Patient underwent cardiac catheterization results discussed with Dr. Wall no intervention amenable at this time continue with medical management Patient received significant amount of IV fluid prior to cardiac catheterization due to elevated creatinine, now she is feeling congested and short of breath and unable to lay flat she will be given extra dose of IV Lasix will monitor still tomorrow Objective - Vital Signs Vital signs: Vital Signs Temp 98.1 F 05/29/17 12:00 Pulse 93 05/29/17 12:00 Resp 17 05/29/17 12:00 BP 125/67 05/29/17 12:00 Pulse Ox 98 05/29/17 12:00 Intake & Output 05/28/17 05/29/17 05/29/17 18:59 06:59 18:59 Intake Total 554 200 Output Total 3 800 2 Balance 551 -800 198 Weight 76.1 kg Intake: Oral 554 200 Output: Urine 800 Stool 3 2 Other: Voiding Method Toilet Toilet Toilet Diaper Diaper Diaper # Voids 2 2 - Exam In general patient is alert and oriented 3 in no apparent distress HEENT head normocephalic and atraumatic Neck is supple no JVD no goiter no lymphadenopathy Chest is clear to auscultation no wheezing Cardiac exam reveals regular heart sounds no murmurs Abdomen is soft nontender no organomegaly Extremity exam reveals no edema no cyanosis or clubbing - Labs CBC & Chem 7: 05/29/17 05:46 05/29/17 05:46 Labs: Abnormal Lab Results - Last 24 Hours (Table) 05/28/17 05/28/17 05/29/17 Range/Units 16:48 20:41 02:11 RBC (3.80-5.40) m/uL Hgb (11.4-16.0) gm/dL Hct (34.0-46.0) % MCV (80.0-100.0) fL RDW (11.5-15.5) % BUN (7-17) mg/dL Glucose (74-99) mg/dL POC Glucose (mg/dL) 241 H 240 H 219 H (75-99) mg/dL AST (14-36) U/L ALT (9-52) U/L Alkaline Phosphatase (38-126) U/L Total Protein (6.3-8.2) g/dL Albumin (3.5-5.0) g/dL 05/29/17 05/29/17 05/29/17 Range/Units 05:46 05:46 06:04 RBC 2.67 L (3.80-5.40) m/uL Hgb 8.6 L (11.4-16.0) gm/dL Hct 26.9 L (34.0-46.0) % MCV 100.8 H (80.0-100.0) fL RDW 17.2 H (11.5-15.5) % BUN 23 H (7-17) mg/dL Glucose 197 H (74-99) mg/dL POC Glucose (mg/dL) 198 H (75-99) mg/dL AST 97 H (14-36) U/L ALT 67 H (9-52) U/L Alkaline Phosphatase 216 H (38-126) U/L Total Protein 5.4 L (6.3-8.2) g/dL Albumin 2.8 L (3.5-5.0) g/dL Microbiology - Last 24 Hours (Table) 05/26/17 11:30 Gram Stain - Final Leg - Left Wound Culture - Final Escherichia coli Assessment and Plan Plan: 1. Acute non-ST elevation myocardial infarction seen and evaluated by cardiology. Awaiting decision regarding possible left heart catheterization tomorrow., 2. History of coronary artery disease with prior stent placement, patient underwent cardiac catheterization was Dr. Duke jiménez and mandible at this time 3. Underlying ischemic cardiomyopathy with known EF of 20% currently compensated 4. Essential hypertension: Blood pressure well-controlled 5. Type 2 diabetes mellitus hold oral agents and continue sliding scale insulin 6. Paroxysmal atrial fibrillation on anticoagulation with Eliquis 7. Mixed hyperlipidemia 8. Mild acute kidney injury, will hold nephrotoxic 9. Large bruise/hematoma 10. For DVT prophylaxis patient encouraged to ambulate, Ellik was restarted this morning by Dr. Krishnamurthy 11. Fluid overload with acute systolic congestive heart failure exacerbation, at this time receiving IV Lasix, will monitor closely 12. Anemia with evidence of iron deficiency at this time will give a dose of IV iron 13. Physical debility Will consult Dr. Leavitt for possible rehab admission
[2017-05-29] MEDS: APIXABAN 5 MG TAB PO SCH ×2 (15:56→21:28)
[2017-05-29] MEDS ORDERED: BISACODYL 10 MG SUPP RECTAL STA (16:53)
[2017-05-29 16:56] LABS: Glucose,Whole Blood 325 mg/dL (75-99)
[2017-05-29] MEDS ORDERED: NA PHOS,M-B/NA PHOS,DI-BA 133 ML ENEMA RECTAL ONE (17:39)
[2017-05-29 20:36] LABS: Glucose,Whole Blood 293 mg/dL (75-99)
[2017-05-29] MEDS: ATORVASTATIN 40 MG TAB PO SCH (21:28)
[2017-05-29] MEDS: PREGABALIN 75 MG CAP PO SCH (21:32)
[2017-05-29] MEDS: INSULIN GLARGINE 100 UNIT/ML 10 ML VIAL SQ SCH (21:34)
[2017-05-30 06:03] LABS: Glucose,Whole Blood 170 mg/dL (75-99)
[2017-05-30 06:14] LABS: Anisocytosis Slight; Basophils % (A) 0 %; CH 32.6; CHCM 32.4; Eosinophils # (A) 0.1 k/uL (0-0.7); Eosinophils % (A) 2 %; HCT 25.8 % (34.0-46.0); HDW 3.51; HGB 8.3 gm/dL (11.4-16.0); Hypochromasia Slight; Luc # (Auto) 0.13; Luc % (Auto) 2; Lymphocytes # (A) 1.1 k/uL (1.0-4.8); Lymphocytes % (A) 19 %; MCH 32.7 pg (25.0-35.0); MCHC 32.4 g/dL (31.0-37.0); MCV 101.2 fL (80.0-100.0); Macrocytosis Slight; Mean Platelet Volume 7.5; Monocytes # (A) 0.4 k/uL (0-1.0); Monocytes % (A) 6 %; Neutrophils # (A) 4.4 k/uL (1.3-7.7); Neutrophils % (A) 72 %; Poikilocytosis Slight; RBC 2.55 m/uL (3.80-5.40); RDW 16.9 % (11.5-15.5); WBC 6.1 k/uL (3.8-10.6); WBC (Perox) 6.25
[2017-05-30] MEDS: INSULIN LISPRO (humaLOG) 300 UNIT/3 ML VIAL SQ SCH ×4 (06:14→22:31)
[2017-05-30] MEDS: PANTOPRAZOLE 40 MG TABLET PO SCH (06:14)
[2017-05-30] MEDS: LEVOTHYROXINE 25 MCG TAB PO SCH (06:14)
[2017-05-30 06:29] LABS: ALT 70 U/L (9-52); AST 55 U/L (14-36); Alkaline Phosphatase 201 U/L (38-126); Anion Gap 7 mmol/L; Blood Urea Nitrogen 22 mg/dL (7-17); Calcium 9.1 mg/dL (8.4-10.2); Carbon Dioxide 26 mmol/L (22-30); Chloride 103 mmol/L (98-107); Glucose 163 mg/dL (74-99); Non-African American GFR(MDRD) >60 (>60 ml/min/1.73 sqM); Potassium 3.7 mmol/L (3.5-5.1); Sodium 136 mmol/L (137-145); Total Bilirubin 0.4 mg/dL (0.2-1.3)
--- NOTE | 2017-05-30 07:13 | P.CONS ---
History of Present Illness - Chief Complaint Cardiac debility - History of Present Illness I had the op to see patient for inpatient rehab consultation with regard to cardiac debility. She was admitted to [facility] May 26 with chest pain. Found to have non-Q or non-STEMI SD. Seen by cardiology for same. Chest x-ray done and negative. CT of abdomen and pelvis demonstrates diverticulosis with acute diverticulitis as well as left mid ureteral stone 0.4 mm. PT reports supervision for mobility and gait 20 feet with roller walker, fatigues. OT prescribed. Previous functional history as elicited from patient: 77-year-old right-handed white female who lives in a first-floor apartment alone. Doesn't smoke or drink. Retired. Independent with own cooking, laundry, driving, standing shower and gait without device. Dr. kruse jar his regular doctor. Family history of diabetes in father and stroke in mother. Review of Systems Review of systems: ENT: Denies sneezes or discharge. Eyes: Denies discharge or photophobia. Cardiac: Right thigh discomfort. Pulmonary: Denies cough or shortness of breath. Breast: Denies discharge or lumps. Gastrointestinal: Denies nausea, emesis, constipation, diarrhea. Right side discomfort. Genitourinary: Denies discharge or frequency. Musculoskeletal: Denies muscle or bone aches. Neurologic: Denies motor or sensory change. Endocrine: Denies shakes or sweats. Oncology: Denies cancers. Dermatologic: Denies rash, itching, pruritus. ALLERGY/immunology: Denies sneezes, rashes. Past Medical History Past Medical History: Atrial Fibrillation, Heart Failure, Diabetes Mellitus, Hypertension, Myocardial Infarction (SD) Additional Past Medical History / Comment(s): hypothyrodism, Kidney failure, neuropathy. Last Myocardial Infarction Date:: 1994 History of Any Multi-Drug Resistant Organisms: None Reported, MRSA Year Discovered:: 2013 MDRO Source:: left leg Past Surgical History: Cholecystectomy, Coronary Bypass/CABG, Heart Catheterization With Stent, Pacemaker, Tonsillectomy Additional Past Surgical History / Comment(s): Defibrillator, pacemaker, breast reduction, varicous veins Past Anesthesia/Blood Transfusion Reactions: No Reported Reaction Additional Past Anesthesia/Blood Transfusion Reaction / Comm: allergic to propofol Date of Last Stent Placement:: 1994 Type of Cardiac Device: Permanent Pacemaker Device Placement Date:: 2011 Smoking Status: Never smoker - Past Family History Mother Family Medical History: CVA/TIA Additional Family Medical History / Comment(s): at age 43 of a stroke Father Family Medical History: Diabetes Mellitus Additional Family Medical History / Comment(s): age 81 Medications and Allergies Home Medications Medication Instructions Recorded Confirmed Type Allopurinol [Zyloprim] 300 mg PO DAILY 04/18/17 05/22/17 History Apixaban [Eliquis] 5 mg PO BID 04/18/17 05/22/17 History Aspirin [Adult Low Dose Aspirin EC] 81 mg PO DAILY 04/18/17 05/22/17 History Atorvastatin [Lipitor] 40 mg PO HS 04/18/17 05/22/17 History Furosemide [Lasix] 40 mg PO HS 04/18/17 05/22/17 History HYDROcodone/APAP 7.5-325MG [Temple 1 tab PO Q6H PRN 04/18/17 05/22/17 History 7.5-325] Isosorbide Mononitrate ER [Imdur] 60 mg PO DAILY 04/18/17 05/22/17 History Levothyroxine Sodium 25 mcg PO DAILY 04/18/17 05/22/17 History Lisinopril [Zestril] 10 mg PO DAILY 04/18/17 05/22/17 History Metoprolol Tartrate [Lopressor] 50 mg PO BID 04/18/17 05/22/17 History Nitroglycerin Sl Tabs [Nitrostat] 0.4 mg SUBLINGUAL Q5M PRN 04/18/17 05/22/17 History Omeprazole 20 mg PO DAILY 04/18/17 05/22/17 History Pregabalin [Lyrica] 75 mg PO HS 04/18/17 05/22/17 History glipiZIDE [Glucotrol] 5 mg PO BID 04/18/17 05/22/17 History Furosemide [Lasix] 80 mg PO DAILY 05/22/17 05/22/17 History Magnesium Oxide [Mag-Ox] 400 mg PO BID 05/22/17 05/22/17 History metFORMIN HCL ER [Glucophage Xr] 500 mg PO BID 05/22/17 05/22/17 History Allergies Allergy/AdvReac Type Severity Reaction Status Date / Time Penicillins Allergy Rash/Hives Verified 05/22/17 08:26 propofol Allergy Unknown Verified 05/22/17 08:26 sulfamethoxazole AdvReac Abdominal Verified 05/22/17 08:26 [From Bactrim] Pain trimethoprim [From Bactrim] AdvReac Abdominal Verified 05/22/17 08:26 Pain Physical Exam Vitals: Vital Signs Temp Pulse Resp BP BP BP Pulse Ox 05/30/17 04:00 98.9 F 58 L 18 111/78 98 05/29/17 23:56 97.7 F 61 18 108/58 97 05/29/17 20:00 97.9 F 62 18 129/61 97 05/29/17 16:00 97.7 F 56 L 16 124/64 98 05/29/17 12:00 98.1 F 55 L 16 125/67 98 05/29/17 07:58 97.8 F 89 16 113/65 99 Intake and Output 05/29/17 05/30/17 05/30/17 22:59 06:59 14:59 Intake Total 0 Output Total 1 1 Balance -1 -1 Intake: Intake, IV Titration 0 Amount IV Fluid Continuation 1, 0 000 ml As IV .[employer] [facility] Rx#:[id number] Output: Stool 1 1 Other: Voiding Method Toilet Toilet Diaper Diaper # Voids 2 Weight 75.4 kg Skin: Atrophic with at least petechial lesions noted left leg. General: Medium build and comfortable appearance. Head: Normocephalic, atraumatic. Eyes: Symmetric. Pupils equal round. Ears: Symmetric. Hearing within normal limits. Mouth: Clear. Neck: Supple. Carotid without bruit. Cardiac: Regular rate and rhythm. Lungs: Clear anteriorly and posteriorly. Abdomen: Soft active nontender. Extremities: Normal tone. Neurological: Mental status: Alert, cooperative, pleasant. Cranial nerves: Symmetric facial tone and trapezius. Motor: Actively elevate all limbs off of bed. Sensation: Intact throughout. DTRs: Symmetric and equal throughout. Mobility: On contact precautions. Results CBC & Chem 7: 05/30/17 05:43 05/30/17 05:43 Labs: Abnormal Lab Results - Last 24 Hours (Table) 05/29/17 05/29/17 05/30/17 Range/Units 16:46 20:34 05:43 RBC 2.55 L (3.80-5.40) m/uL Hgb 8.3 L (11.4-16.0) gm/dL Hct 25.8 L (34.0-46.0) % MCV 101.2 H (80.0-100.0) fL RDW 16.9 H (11.5-15.5) % Sodium (137-145) mmol/L BUN (7-17) mg/dL Glucose (74-99) mg/dL POC Glucose (mg/dL) 325 H 293 H (75-99) mg/dL AST (14-36) U/L ALT (9-52) U/L Alkaline Phosphatase (38-126) U/L Total Protein (6.3-8.2) g/dL Albumin (3.5-5.0) g/dL 05/30/17 05/30/17 Range/Units 05:43 06:02 RBC (3.80-5.40) m/uL Hgb (11.4-16.0) gm/dL Hct (34.0-46.0) % MCV (80.0-100.0) fL RDW (11.5-15.5) % Sodium 136 L (137-145) mmol/L BUN 22 H (7-17) mg/dL Glucose 163 H (74-99) mg/dL POC Glucose (mg/dL) 170 H (75-99) mg/dL AST 55 H (14-36) U/L ALT 70 H (9-52) U/L Alkaline Phosphatase 201 H (38-126) U/L Total Protein 5.0 L (6.3-8.2) g/dL Albumin 2.7 L (3.5-5.0) g/dL Microbiology - Last 24 Hours (Table) 05/26/17 11:30 Gram Stain - Final Leg - Left Wound Culture - Final Escherichia coli Chest x-ray: report reviewed (Negative.) CT scan - abdomen: report reviewed (Abdomen and pelvis with diverticulosis with acute diverticulitis. Left mid ureteral stone.) Assessment and Plan (1) Chest pain Status: Acute Plan: Impression: 1. Cardiac debility. 2. Non-STEMI. 3. Atrial fibrillation. 4. Heart failure. 5. Diabetes. 6. Hypertension. Comments and plan: At this time PT ongoing and OT prescribed. PT documents the patient is at supervision level with safety concern for mobility including gait 20 feet. Insurance criteria would be that patient require minimal assistance, for inpatient rehab.
[2017-05-30] MEDS: ALLOPURINOL 300 MG TAB PO SCH (09:42)
[2017-05-30] MEDS: ISOSORBIDE MONONITRATE ER 60 MG TAB.ER.24H PO SCH (09:42)
[2017-05-30] MEDS: ASPIRIN 81 MG PO SCH (09:42)
[2017-05-30] MEDS: APIXABAN 5 MG TAB PO SCH ×2 (09:42→22:31)
[2017-05-30] MEDS: DOCUSATE 100 MG CAP PO SCH ×2 (09:42→22:35)
[2017-05-30] MEDS: FUROSEMIDE 40 MG TAB PO SCH ×2 (09:42→15:47)
[2017-05-30] MEDS: METOPROLOL TARTRATE 50 MG TAB PO SCH ×2 (09:43→22:32)
[2017-05-30] MEDS: LISINOPRIL 10 MG TAB PO SCH (09:43)
[2017-05-30] MEDS: MAGNESIUM OXIDE 400 MG TAB PO SCH ×2 (09:43→22:32)
--- NOTE | 2017-05-30 10:34 | P.PN ---
Subjective Patient admitted to the hospital for an acute HI. Scheduled for heart catheterization today. No further chest pain. Still having some right flank pain there is evidence of bruising. Pain controlled with pain medications. Patient also having more swelling in the left leg and evidence of some mild cellulitis. She is currently on Rocephin for UTI. Patient denies any chest pain. He does omit to some shortness of breath and fatigue with ambulating. Last bowel movement 4 days ago. Denies any burning with urination. 05/30/2017 patient still having some shortness of breath. Especially when she lays flat. She denies any chest pain. Denies any nausea or vomiting. She was able to have a bowel movement after an enema yesterday. She has any burning with urination. Still having some difficulty with ambulating due to her generalized weakness Objective - Vital Signs Vital signs: Vital Signs Temp 97.4 F L 05/30/17 08:00 Pulse 60 05/30/17 08:00 Resp 14 05/30/17 08:00 BP 108/56 05/30/17 08:00 Pulse Ox 94 L 05/30/17 08:00 Intake & Output 05/29/17 05/30/17 05/30/17 18:59 06:59 18:59 Intake Total 422 0 180 Output Total 3 1 1 Balance 419 -1 179 Weight 75.4 kg Intake: Intake, IV Titration 0 Amount IV Fluid Continuation 1, 0 000 ml As IV .[facility] Rx#:[id number] Oral 422 180 Output: Stool 3 1 1 Other: Voiding Method Toilet Toilet Toilet Diaper Diaper Diaper # Voids 2 - Exam Head normocephalic Neck supple Lungs clear to auscultation bilaterally no wheezing or crackles Heart regular rate and rhythm S1-S2, no rub or gallop Abdomen is soft nontender nondistended positive bowel sounds no hepatosplenomegaly Extremities chronic changes of left leg with some skin breakdown. Trace to +1 edema bilateral lower extremities Neuro alert and orientated to 3 - Labs CBC & Chem 7: 05/30/17 05:43 05/30/17 05:43 Labs: Abnormal Lab Results - Last 24 Hours (Table) 05/29/17 05/29/17 05/30/17 Range/Units 16:46 20:34 05:43 RBC 2.55 L (3.80-5.40) m/uL Hgb 8.3 L (11.4-16.0) gm/dL Hct 25.8 L (34.0-46.0) % MCV 101.2 H (80.0-100.0) fL RDW 16.9 H (11.5-15.5) % Sodium (137-145) mmol/L BUN (7-17) mg/dL Glucose (74-99) mg/dL POC Glucose (mg/dL) 325 H 293 H (75-99) mg/dL AST (14-36) U/L ALT (9-52) U/L Alkaline Phosphatase (38-126) U/L Total Protein (6.3-8.2) g/dL Albumin (3.5-5.0) g/dL 05/30/17 05/30/17 Range/Units 05:43 06:02 RBC (3.80-5.40) m/uL Hgb (11.4-16.0) gm/dL Hct (34.0-46.0) % MCV (80.0-100.0) fL RDW (11.5-15.5) % Sodium 136 L (137-145) mmol/L BUN 22 H (7-17) mg/dL Glucose 163 H (74-99) mg/dL POC Glucose (mg/dL) 170 H (75-99) mg/dL AST 55 H (14-36) U/L ALT 70 H (9-52) U/L Alkaline Phosphatase 201 H (38-126) U/L Total Protein 5.0 L (6.3-8.2) g/dL Albumin 2.7 L (3.5-5.0) g/dL Microbiology - Last 24 Hours (Table) 05/26/17 11:30 Gram Stain - Final Leg - Left Wound Culture - Final Escherichia coli Assessment and Plan Plan: 1. Acute non-ST elevation myocardial infarction seen and evaluated by cardiology. Status post heart catheterization with no intervention cardial is recommending medical management 2. History of coronary artery disease with prior stent placement 3. Underlying ischemic cardiomyopathy with known EF of 20% currently compensated 4. Essential hypertension: Blood pressure well-controlled 5. Type 2 diabetes mellitus hold oral agents and continue sliding scale insulin 6. Paroxysmal atrial fibrillation on anticoagulation with Eliquis. 7. Mixed hyperlipidemia 8. Mild acute kidney injury, will hold nephrotoxic. Kidney functions did improve with IV fluids. 9. Constipation add Colace 10. Left lower extremity cellulitis. Wound culture showing rare E. coli, continue Rocephin 11. UTI: continue Rocephin, urine culture growing E. coli 12. Acute systolic CHF exacerbation patient did receive an extra dose of IV Lasix yesterday. She reports to having some shortness of breath 13. Iron deficiency anemia. Patient did receive a dose of IV iron. Hemoglobin is at 8.3. Continue to monitor 14. Large hematoma right side of the abdomen 15. Physical ability: Patient will require rehab placement at time of discharge. Likely she'll be discharged to an ECF within the next couple a days. 16. Mildly elevated LFTs. Possibly related to fluid congestion in the liver. Continue to monitor. LFTs are showing improvement even while on the Lipitor. I performed an examination of the patient and discussed their management with the physician Manager File. I have reviewed the Physician Manager File's notes and agree with the documented findings and plan of care
[2017-05-30 11:50] LABS: Glucose,Whole Blood 195 mg/dL (75-99)
--- NOTE | 2017-05-30 11:57 | P.PN ---
Subjective Principal diagnosis: Non STEMI This is a pleasant 77-year-old female who follows regularly with Dr. Wall in the office. She has a known history of coronary artery disease with prior bypass surgery as well as stenting in the past. History of ischemic cardiomyopathy with prior AICD implantation, paroxysmal atrial fibrillation, on Eliquis, diabetes, hypertension, mild renal failure, she presented to the hospital with a non-Q-wave myocardial infarction. Troponin 0.1, 11.0 and 5.6. EKG on admission showed a normal sinus rhythm with lateral ST depression. She also states that she had a fall at home recently, injuring her right flank area. CT of the abdomen and pelvis did not reveal any evidence of bleed. She underwent cardiac catheterization by Dr. Aj yesterday that showed patent MOLINA to the LAD, patent SVG to the diagonal branch with significant obstructive disease in the mid diagonal branch occluded SVG to the right coronary artery. Attempted angioplasty of the diagonal branch was unsuccessful due to inability to advance the balloon because of severe calcification and severe angulation of the vessel. She has been chest pain-free. Patient's Lasix 40 mg by mouth twice a day was resumed yesterday. This morning, she continues to complain of overall not feeling well. She complains of fatigue when she is up to the bathroom trying to wash up. She has not been up out of bed much only walked in the corona once a few days ago. Continues to complain of edema however edema appears to be improved and her weight is down. BUN and creatinine are stable at 22 and 0.9 respectively. Objective - Vital Signs Vital signs: Vital Signs Temp 97.4 F L 05/30/17 08:00 Pulse 60 05/30/17 08:00 Resp 14 05/30/17 08:00 BP 108/56 05/30/17 08:00 Pulse Ox 94 L 05/30/17 08:00 Intake & Output 05/29/17 05/30/17 05/30/17 18:59 06:59 18:59 Intake Total 422 0 180 Output Total 3 1 1 Balance 419 -1 179 Weight 75.4 kg Intake: Intake, IV Titration 0 Amount IV Fluid Continuation 1, 0 000 ml As IV .[facility] Rx#:[id number] Oral 422 180 Output: Stool 3 1 1 Other: Voiding Method Toilet Toilet Toilet Diaper Diaper Diaper # Voids 2 - Exam PHYSICAL EXAMINATION: HEENT: Head is atraumatic, normocephalic. Pupils equal, round. Neck is supple. There is no elevated jugular venous pressure. HEART EXAMINATION: Heart S1 and S2 irregularly irregular a systolic murmur is heard. CHEST EXAMINATION: Lungs are clear to auscultation and precussion. No chest wall tenderness is noted on palpation or with deep breathing. ABDOMEN: Soft, nontender. Bowel sounds are heard. No organomegaly noted. Patient does have some ecchymosis noted at the right flank area, tender. EXTREMITIES: 2+ peripheral pulses with evidence of trace peripheral edema and no calf tenderness noted. Right groin puncture site soft without hematoma. NEUROLOGIC patient is awake, alert and oriented x3. - Labs CBC & Chem 7: 05/30/17 05:43 05/30/17 05:43 Labs: Abnormal Lab Results - Last 24 Hours (Table) 05/29/17 05/29/17 05/30/17 Range/Units 16:46 20:34 05:43 RBC 2.55 L (3.80-5.40) m/uL Hgb 8.3 L (11.4-16.0) gm/dL Hct 25.8 L (34.0-46.0) % MCV 101.2 H (80.0-100.0) fL RDW 16.9 H (11.5-15.5) % Sodium (137-145) mmol/L BUN (7-17) mg/dL Glucose (74-99) mg/dL POC Glucose (mg/dL) 325 H 293 H (75-99) mg/dL AST (14-36) U/L ALT (9-52) U/L Alkaline Phosphatase (38-126) U/L Total Protein (6.3-8.2) g/dL Albumin (3.5-5.0) g/dL 05/30/17 05/30/17 05/30/17 Range/Units 05:43 06:02 11:44 RBC (3.80-5.40) m/uL Hgb (11.4-16.0) gm/dL Hct (34.0-46.0) % MCV (80.0-100.0) fL RDW (11.5-15.5) % Sodium 136 L (137-145) mmol/L BUN 22 H (7-17) mg/dL Glucose 163 H (74-99) mg/dL POC Glucose (mg/dL) 170 H 195 H (75-99) mg/dL AST 55 H (14-36) U/L ALT 70 H (9-52) U/L Alkaline Phosphatase 201 H (38-126) U/L Total Protein 5.0 L (6.3-8.2) g/dL Albumin 2.7 L (3.5-5.0) g/dL Microbiology - Last 24 Hours (Table) 05/26/17 11:30 Gram Stain - Final Leg - Left Wound Culture - Final Escherichia coli Assessment and Plan Plan: Assessment and plan #1 acute non-ST elevation myocardial infarction #2 known history of coronary artery disease with prior bypass surgery and stent placement #3 ischemic cardiomyopathy with prior AICD implant #4 hypertension # 5 diabetes #6 paroxysmal atrial fibrillation on Eliquis for anticoagulation #7 hyperlipidemia #8 mild acute kidney injury #9 unsuccessful angioplasty of the occluded SVG to the RCA From cardiology perspective, but occasionally reviewed and will continue the same. At this time, from our perspective patient may be transferred to [facility]. We will see the patient on an as-needed basis. Please do not hesitate to contact us with questions. The above dictated assessment and findings were discussed with signing physician. The impression and plan of care have been directed as dictated. Rebeka Fitzpatrick, Nurse Practitioner, acting as scribe for signing physician.
[2017-05-30 16:42] LABS: Glucose,Whole Blood 292 mg/dL (75-99)
[2017-05-30 22:01] LABS: Glucose,Whole Blood 297 mg/dL (75-99)
[2017-05-30] MEDS: ATORVASTATIN 40 MG TAB PO SCH (22:31)
[2017-05-30] MEDS: INSULIN GLARGINE 100 UNIT/ML 10 ML VIAL SQ SCH (22:31)
[2017-05-30] MEDS: PREGABALIN 75 MG CAP PO SCH (22:34)
[2017-05-30] MEDS: HYDROcodone/APAP 10-325MG 1 EACH TAB PO PRN (23:58)
[2017-05-31] MEDS: LEVOTHYROXINE 25 MCG TAB PO SCH (06:15)
[2017-05-31 07:15] LABS: Glucose,Whole Blood 129 mg/dL (75-99)
[2017-05-31] MEDS: APIXABAN 5 MG TAB PO SCH ×2 (07:24→22:16)
[2017-05-31] MEDS: ALLOPURINOL 300 MG TAB PO SCH (07:24)
[2017-05-31] MEDS: ASPIRIN 81 MG PO SCH (07:25)
[2017-05-31] MEDS: PANTOPRAZOLE 40 MG TABLET PO SCH (07:25)
[2017-05-31] MEDS: ISOSORBIDE MONONITRATE ER 60 MG TAB.ER.24H PO SCH (07:26)
[2017-05-31] MEDS: DOCUSATE 100 MG CAP PO SCH ×2 (07:26→22:16)
[2017-05-31] MEDS: FUROSEMIDE 40 MG TAB PO SCH ×2 (07:26→15:38)
[2017-05-31] MEDS: LISINOPRIL 10 MG TAB PO SCH (07:27)
[2017-05-31] MEDS: METOPROLOL TARTRATE 50 MG TAB PO SCH ×2 (07:27→22:16)
[2017-05-31] MEDS: MAGNESIUM OXIDE 400 MG TAB PO SCH ×2 (07:27→22:16)
[2017-05-31] MEDS: INSULIN LISPRO (humaLOG) 300 UNIT/3 ML VIAL SQ SCH ×4 (07:33→23:10)
[2017-05-31 07:47] LABS: Glucose,Whole Blood 236 mg/dL (75-99)
[2017-05-31 08:09] LABS: Anisocytosis Slight; Basophils % (A) 1 %; CHCM 32.7; Eosinophils # (A) 0.2 k/uL (0-0.7); Eosinophils % (A) 3 %; HCT 27.8 % (34.0-46.0); HDW 3.62; HGB 8.9 gm/dL (11.4-16.0); Hypochromasia Slight; Luc # (Auto) 0.17; Luc % (Auto) 3; Lymphocytes # (A) 1.1 k/uL (1.0-4.8); Lymphocytes % (A) 19 %; MCH 32.4 pg (25.0-35.0); MCHC 31.8 g/dL (31.0-37.0); MCV 101.7 fL (80.0-100.0); Macrocytosis Slight; Mean Platelet Volume 9.1; Monocytes # (A) 0.3 k/uL (0-1.0); Monocytes % (A) 4 %; Neutrophils # (A) 4.3 k/uL (1.3-7.7); Neutrophils % (A) 71 %; Poikilocytosis Slight; RBC 2.74 m/uL (3.80-5.40); RDW 17.8 % (11.5-15.5)
[2017-05-31 08:38] LABS: ALT 65 U/L (9-52); AST 40 U/L (14-36); Alkaline Phosphatase 194 U/L (38-126); Anion Gap 9 mmol/L; Blood Urea Nitrogen 22 mg/dL (7-17); Calcium 9.2 mg/dL (8.4-10.2); Carbon Dioxide 28 mmol/L (22-30); Chloride 103 mmol/L (98-107); Glucose 136 mg/dL (74-99); Non-African American GFR(MDRD) 54 (>60 ml/min/1.73 sqM); Potassium 4.1 mmol/L (3.5-5.1); Sodium 140 mmol/L (137-145); Total Bilirubin 0.6 mg/dL (0.2-1.3); Total Protein 5.8 g/dL (6.3-8.2)
--- NOTE | 2017-05-31 09:20 | P.OBCN ---
History of Present Illness Consult date: 05/31/17 Reason for consult: pelvic prolapse History of present illness: This is a 76-year-old white female who was admitted under the medicine team approximate 10 days ago status post myocardial infarction. While in the hospital, she was unable to have a bowel movement for 7 days. She was reluctant to strain at the stool secondary to a known history of pelvic organ prolapse. She then received an enema and had an "explosive" bowel movement. At this time, the uterus and bladder came down the perineal body, consistent with her known history of uterine prolapse and cystocele. I saw the patient in the office on 05/16/2017 at which time a grade 3-4 cystocele along with a grade 2 uterine prolapse were appreciated. After thorough discussion in the office, the patient elected to proceed with pessary support. A #4 ring with support pessary was ordered and has come in. I am seeing the patient today to make a decision as to whether the pessary should be placed at this time, or wait until she is status post rehab for her cardiac issues. Current medications allopurinol 300 mg tablets daily, baby aspirin daily, a Smith a statin 400 mg once daily, Beth Jeny 5 mg orally twice daily, glipizide 5 mg twice daily before meals, Inderal LA 60 mg extended release capsules by mouth once daily, Lasix 80 mg once daily, levothyroxine 25 MCG's once daily, lisinopril 10 mg tablets once daily, Lyrica 75 mg at bedtime, magnesium oxide 400 mg tabs twice daily, metformin 500 mg twice daily, metoprolol succinate 50 mg extended release tablets twice daily, nitroglycerin 6.5 mg extended release tablets every 8 hours when necessary, and [place] 7.5/325 mg oral tablet every 6 hours as needed for pain. ALLERGIES include Bactrim, penicillins, propranolol and sulfa, reactions unknown. Family history is significant for arrest cancer in her daughter and 2 sisters, cerebral vascular accident in her mother, diabetes and uterine cancer of her sister. Reproductive history is significant for 6 full term vaginal deliveries with 6 living children, delivered between 1956 and 1970. Social history patient is , she denies alcohol or drug use, she has never been a smoker. Past medical history significant for anemia, diabetes, enlarged heart, hypertension, history of myocardial infarction in the past, thyroid disease, phlebitis, and history of kidney infection. Past surgical history bilateral breast reduction, carpal tunnel release, and cardiac stents. On exam this is a pleasant white female, 5 foot 2 inches, 156 pounds, BMI 28, vital signs are currently stable and she is afebrile. HEENT exam reveals good dentition, no obvious thyromegaly. Chest is clear to auscultation in all [place] anteriorly and posteriorly. Abdomen is soft and nontender, active bowel sounds, no organosplenomegaly, no CVA tenderness. Breast exam reveals surgical changes secondary to reduction, no obvious nipple discharge, axillary adenopathy , or discernible lesions or masses. Cardiac exam reveals regular rate and rhythm. Extremities reveal good peripheral pulses, no obvious edema. On genitourinary examination the vaginal vault appears normal with no obvious discharge or odor. There is a known grade 3-4 cystocele along with a grade 2 uterine prolapse, however while the patient is seated in the chair there is no prolapse to inspection. Impression: menopausal female with known grade 2 uterine prolapse and grade 3- 4 cystocele, previously fitted for a #4 ring support pessary which has arrived. Patient is currently admitted for myocardial infarction, and I understand the plan to be likely extended rehab in a nursing facility for up to 3 weeks Plan: I have discussed with Shi and her daughter the value of placing the pessary now versus placing it when she is home and has completed rehab. Many nursing staff are not familiar with pessary care and placement, and because this will be new to the patient, we have elected to wait and placed the pessary in the outpatient setting when she has completed her rehab. I have given the device to the patient to keep in her possession. She will follow-up in the office with me after completion of cardiac rehab. Patient and her daughter are both comfortable with this plan. Thank you for the consultation Review of Systems Negative except as in HPI Past Medical History Past Medical History: Atrial Fibrillation, Heart Failure, Diabetes Mellitus, Hypertension, Myocardial Infarction (MS) Additional Past Medical History / Comment(s): hypothyrodism, Kidney failure, neuropathy. Last Myocardial Infarction Date:: 1994 History of Any Multi-Drug Resistant Organisms: None Reported, MRSA Year Discovered:: 2013 MDRO Source:: left leg Past Surgical History: Cholecystectomy, Coronary Bypass/CABG, Heart Catheterization With Stent, Pacemaker, Tonsillectomy Additional Past Surgical History / Comment(s): Defibrillator, pacemaker, breast reduction, varicous veins Past Anesthesia/Blood Transfusion Reactions: No Reported Reaction Additional Past Anesthesia/Blood Transfusion Reaction / Comm: allergic to propofol Date of Last Stent Placement:: 1994 Type of Cardiac Device: Permanent Pacemaker Device Placement Date:: 2011 Smoking Status: Never smoker - Past Family History Mother Family Medical History: CVA/TIA Additional Family Medical History / Comment(s): at age 43 of a stroke Father Family Medical History: Diabetes Mellitus Additional Family Medical History / Comment(s): age 81 Medications and Allergies Home Medications Medication Instructions Recorded Confirmed Type Allopurinol [Zyloprim] 300 mg PO DAILY 04/18/17 05/22/17 History Apixaban [Eliquis] 5 mg PO BID 04/18/17 05/22/17 History Aspirin [Adult Low Dose Aspirin EC] 81 mg PO DAILY 04/18/17 05/22/17 History Atorvastatin [Lipitor] 40 mg PO HS 04/18/17 05/22/17 History Furosemide [Lasix] 40 mg PO HS 04/18/17 05/22/17 History HYDROcodone/APAP 7.5-325MG [[place] 1 tab PO Q6H PRN 04/18/17 05/22/17 History 7.5-325] Isosorbide Mononitrate ER [Imdur] 60 mg PO DAILY 04/18/17 05/22/17 History Levothyroxine Sodium 25 mcg PO DAILY 04/18/17 05/22/17 History Lisinopril [Zestril] 10 mg PO DAILY 04/18/17 05/22/17 History Metoprolol Tartrate [Lopressor] 50 mg PO BID 04/18/17 05/22/17 History Nitroglycerin Sl Tabs [Nitrostat] 0.4 mg SUBLINGUAL Q5M PRN 04/18/17 05/22/17 History Omeprazole 20 mg PO DAILY 04/18/17 05/22/17 History Pregabalin [Lyrica] 75 mg PO HS 04/18/17 05/22/17 History glipiZIDE [Glucotrol] 5 mg PO BID 04/18/17 05/22/17 History Furosemide [Lasix] 80 mg PO DAILY 05/22/17 05/22/17 History Magnesium Oxide [Mag-Ox] 400 mg PO BID 05/22/17 05/22/17 History metFORMIN HCL ER [Glucophage Xr] 500 mg PO BID 05/22/17 05/22/17 History Allergies Allergy/AdvReac Type Severity Reaction Status Date / Time Penicillins Allergy Rash/Hives Verified 05/22/17 08:26 propofol Allergy Unknown Verified 05/22/17 08:26 sulfamethoxazole AdvReac Abdominal Verified 05/22/17 08:26 [From Bactrim] Pain trimethoprim [From Bactrim] AdvReac Abdominal Verified 05/22/17 08:26 Pain Exam - Vital Signs Vital signs: Vital Signs Temp Pulse Resp BP BP Pulse Ox 05/31/17 07:48 97.7 F 56 L 19 111/58 96 05/30/17 21:55 97.6 F 71 16 130/65 94 L 05/30/17 15:37 62 14 05/30/17 15:35 97.3 F L 62 14 108/54 94 L 05/30/17 12:00 99.8 F H 63 16 115/57 96 Intake and Output 05/30/17 05/31/17 05/31/17 22:59 06:59 14:59 Intake Total 180 200 Output Total 1 Balance 179 200 Intake: Oral 180 200 Output: Stool 1 Other: Voiding Method Toilet Toilet Diaper Diaper # Voids 1 # Bowel Movements 1 1 Weight 75.4 kg 75 kg See dictation under HPI please Results Result Diagrams: 05/31/17 07:47 05/31/17 07:47 Abnormal Lab Results - Last 24 Hours (Table) 05/29/17 05/30/17 05/30/17 Range/Units 12:03 11:44 16:35 RBC (3.80-5.40) m/uL Hgb (11.4-16.0) gm/dL Hct (34.0-46.0) % MCV (80.0-100.0) fL RDW (11.5-15.5) % BUN (7-17) mg/dL Glucose (74-99) mg/dL POC Glucose (mg/dL) 236 H 195 H 292 H (75-99) mg/dL AST (14-36) U/L ALT (9-52) U/L Alkaline Phosphatase (38-126) U/L Total Protein (6.3-8.2) g/dL Albumin (3.5-5.0) g/dL 05/30/17 05/31/17 05/31/17 Range/Units 21:59 07:14 07:47 RBC 2.74 L (3.80-5.40) m/uL Hgb 8.9 L (11.4-16.0) gm/dL Hct 27.8 L (34.0-46.0) % MCV 101.7 H (80.0-100.0) fL RDW 17.8 H (11.5-15.5) % BUN (7-17) mg/dL Glucose (74-99) mg/dL POC Glucose (mg/dL) 297 H 129 H (75-99) mg/dL AST (14-36) U/L ALT (9-52) U/L Alkaline Phosphatase (38-126) U/L Total Protein (6.3-8.2) g/dL Albumin (3.5-5.0) g/dL 05/31/17 Range/Units 07:47 RBC (3.80-5.40) m/uL Hgb (11.4-16.0) gm/dL Hct (34.0-46.0) % MCV (80.0-100.0) fL RDW (11.5-15.5) % BUN 22 H (7-17) mg/dL Glucose 136 H (74-99) mg/dL POC Glucose (mg/dL) (75-99) mg/dL AST 40 H (14-36) U/L ALT 65 H (9-52) U/L Alkaline Phosphatase 194 H (38-126) U/L Total Protein 5.8 L (6.3-8.2) g/dL Albumin 3.2 L (3.5-5.0) g/dL Assessment and Plan Plan: As per dictation, we will await pessary placement until the patient has completed her cardiac rehab. I have given the number for ring pessary with support to the patient to keep in her care. I will follow-up with her in the office as an outpatient. Thank you for the consultation Time with Patient: Greater than 30
[2017-05-31] MEDS: HYDROcodone/APAP 10-325MG 1 EACH TAB PO PRN ×2 (15:28→23:06)
[2017-05-31] MEDS ORDERED: SODIUM FERRIC GLUCONAT-SUCROSE 125 MG in SODIUM CHLORIDE 0.9% 100 ML IVPB ONE (15:30)
[2017-05-31 15:54] LABS: Glucose,Whole Blood 244 mg/dL (75-99)
[2017-05-31 17:43] LABS: Glucose,Whole Blood 344 mg/dL (75-99)
--- NOTE | 2017-05-31 19:07 | P.PN ---
Subjective Today, patient is stating she has worsening right flank pain. Her and her daughter are not sure if she had a fall or just hit her side at home. There is a small bruise on exam but no hematoma appreciated. Patient has urinary tract infection she was so far treated with IV Levaquin urine culture is positive for E. coli that is resistant to Levaquin. At this time will change IV Levaquin to IV Rocephin and monitor closely. Pain could be related to urinary tract infection. Computed tomography scan of abdomen and pelvis reviewed no significant fluid collection no evidence of hematoma. Patient underwent cardiac catheterization results discussed with Dr. Wall no intervention amenable at this time continue with medical management Patient received significant amount of IV fluid prior to cardiac catheterization due to elevated creatinine, now she is feeling congested and short of breath and unable to lay flat she will be given extra dose of IV Lasix will monitor still tomorrow Objective - Vital Signs Vital signs: Vital Signs Temp 97.1 F L 05/31/17 15:00 Pulse 60 05/31/17 15:00 Resp 18 05/31/17 15:00 BP 111/50 05/31/17 15:00 Pulse Ox 95 05/31/17 15:00 Intake & Output 05/31/17 05/31/17 06/01/17 06:59 18:59 06:59 Intake Total 200 Balance 200 Weight 75 kg Intake: Oral 200 Other: Voiding Method Toilet Diaper # Voids 1 2 # Bowel Movements 1 - Exam In general patient is alert and oriented 3 in no apparent distress HEENT head normocephalic and atraumatic Neck is supple no JVD no goiter no lymphadenopathy Chest is clear to auscultation no wheezing Cardiac exam reveals regular heart sounds no murmurs Abdomen is soft nontender no organomegaly Extremity exam reveals no edema no cyanosis or clubbing - Labs CBC & Chem 7: 05/31/17 07:47 05/31/17 07:47 Labs: Abnormal Lab Results - Last 24 Hours (Table) 05/29/17 05/30/17 05/31/17 Range/Units 12:03 21:59 07:14 RBC (3.80-5.40) m/uL Hgb (11.4-16.0) gm/dL Hct (34.0-46.0) % MCV (80.0-100.0) fL RDW (11.5-15.5) % BUN (7-17) mg/dL Glucose (74-99) mg/dL POC Glucose (mg/dL) 236 H 297 H 129 H (75-99) mg/dL AST (14-36) U/L ALT (9-52) U/L Alkaline Phosphatase (38-126) U/L Total Protein (6.3-8.2) g/dL Albumin (3.5-5.0) g/dL 05/31/17 05/31/17 05/31/17 Range/Units 07:47 07:47 11:49 RBC 2.74 L (3.80-5.40) m/uL Hgb 8.9 L (11.4-16.0) gm/dL Hct 27.8 L (34.0-46.0) % MCV 101.7 H (80.0-100.0) fL RDW 17.8 H (11.5-15.5) % BUN 22 H (7-17) mg/dL Glucose 136 H (74-99) mg/dL POC Glucose (mg/dL) 244 H (75-99) mg/dL AST 40 H (14-36) U/L ALT 65 H (9-52) U/L Alkaline Phosphatase 194 H (38-126) U/L Total Protein 5.8 L (6.3-8.2) g/dL Albumin 3.2 L (3.5-5.0) g/dL 05/31/17 Range/Units 17:42 RBC (3.80-5.40) m/uL Hgb (11.4-16.0) gm/dL Hct (34.0-46.0) % MCV (80.0-100.0) fL RDW (11.5-15.5) % BUN (7-17) mg/dL Glucose (74-99) mg/dL POC Glucose (mg/dL) 344 H (75-99) mg/dL AST (14-36) U/L ALT (9-52) U/L Alkaline Phosphatase (38-126) U/L Total Protein (6.3-8.2) g/dL Albumin (3.5-5.0) g/dL Assessment and Plan Plan: 1. Acute non-ST elevation myocardial infarction seen and evaluated by cardiology. Awaiting decision regarding possible left heart catheterization tomorrow., 2. History of coronary artery disease with prior stent placement, patient underwent cardiac catheterization was Dr. Wall no intervention and mandible at this time 3. Underlying ischemic cardiomyopathy with known EF of 20% currently compensated 4. Essential hypertension: Blood pressure well-controlled 5. Type 2 diabetes mellitus hold oral agents and continue sliding scale insulin 6. Paroxysmal atrial fibrillation on anticoagulation with Eliquis 7. Mixed hyperlipidemia 8. Mild acute kidney injury, will hold nephrotoxic 9. Large bruise/hematoma 10. For DVT prophylaxis patient encouraged to ambulate, Ellik was restarted this morning by Dr. Krishnamurthy 11. Fluid overload with acute systolic congestive heart failure exacerbation, at this time receiving IV Lasix, will monitor closely 12. Anemia with evidence of iron deficiency at this time will give a dose of IV iron 13. Physical debility Will consult Dr. Leavitt for possible rehab admission 14. grade 2 uterine prolapse and grade 3-4 cystocele, Dr Sanchez input reviewed
[2017-05-31] MEDS: INSULIN GLARGINE 100 UNIT/ML 10 ML VIAL SQ SCH (22:16)
[2017-05-31] MEDS: ATORVASTATIN 40 MG TAB PO SCH (22:16)
[2017-05-31] MEDS: PREGABALIN 75 MG CAP PO SCH (22:17)
[2017-05-31 23:12] LABS: Glucose,Whole Blood 314 mg/dL (75-99)
[2017-06-01] MEDS: LEVOTHYROXINE 25 MCG TAB PO SCH (06:07)
[2017-06-01 06:57] LABS: Glucose,Whole Blood 126 mg/dL (75-99)
[2017-06-01] MEDS: METOPROLOL TARTRATE 50 MG TAB PO SCH ×2 (07:16→22:11)
[2017-06-01] MEDS: HYDROcodone/APAP 10-325MG 1 EACH TAB PO PRN ×3 (07:23→22:31)
[2017-06-01] MEDS: MAGNESIUM OXIDE 400 MG TAB PO SCH ×2 (07:26→22:11)
[2017-06-01 08:10] LABS: Anisocytosis Slight; Basophils % (A) 0 %; CHCM 32.4; Eosinophils # (A) 0.2 k/uL (0-0.7); Eosinophils % (A) 3 %; HCT 28.4 % (34.0-46.0); HGB 8.9 gm/dL (11.4-16.0); Hypochromasia Slight; Luc # (Auto) 0.15; Luc % (Auto) 2; Lymphocytes # (A) 1.2 k/uL (1.0-4.8); Lymphocytes % (A) 17 %; MCH 32.2 pg (25.0-35.0); MCHC 31.3 g/dL (31.0-37.0); MCV 102.9 fL (80.0-100.0); Macrocytosis Moderate; Mean Platelet Volume 8.9; Monocytes # (A) 0.3 k/uL (0-1.0); Monocytes % (A) 5 %; Neutrophils # (A) 5.3 k/uL (1.3-7.7); Neutrophils % (A) 73 %; Poikilocytosis Slight; RBC 2.76 m/uL (3.80-5.40); RDW 18.3 % (11.5-15.5); WBC 7.2 k/uL (3.8-10.6); WBC (Perox) 7.42
[2017-06-01] MEDS: INSULIN LISPRO (humaLOG) 300 UNIT/3 ML VIAL SQ SCH ×4 (08:10→22:12)
[2017-06-01] MEDS: ASPIRIN 81 MG PO SCH (08:12)
[2017-06-01] MEDS: DOCUSATE 100 MG CAP PO SCH ×3 (08:12→22:48)
[2017-06-01] MEDS: ALLOPURINOL 300 MG TAB PO SCH (08:12)
[2017-06-01] MEDS: FUROSEMIDE 40 MG TAB PO SCH ×2 (08:12→16:57)
[2017-06-01] MEDS: APIXABAN 5 MG TAB PO SCH ×2 (08:12→22:11)
[2017-06-01] MEDS: PANTOPRAZOLE 40 MG TABLET PO SCH (08:12)
[2017-06-01] MEDS: LISINOPRIL 10 MG TAB PO SCH (08:13)
[2017-06-01] MEDS: ISOSORBIDE MONONITRATE ER 60 MG TAB.ER.24H PO SCH (08:13)
[2017-06-01 08:24] LABS: ALT 64 U/L (9-52); AST 30 U/L (14-36); Alkaline Phosphatase 182 U/L (38-126); Anion Gap 11 mmol/L; Blood Urea Nitrogen 23 mg/dL (7-17); Calcium 9.1 mg/dL (8.4-10.2); Carbon Dioxide 26 mmol/L (22-30); Chloride 104 mmol/L (98-107); Glucose 122 mg/dL (74-99); Non-African American GFR(MDRD) 52 (>60 ml/min/1.73 sqM); Potassium 3.9 mmol/L (3.5-5.1); Sodium 141 mmol/L (137-145); Total Bilirubin 0.5 mg/dL (0.2-1.3)
[2017-06-01 11:19] LABS: Glucose,Whole Blood 238 mg/dL (75-99)
[2017-06-01] MEDS: MORPHINE SULFATE 2 MG/ML SYRINGE IVP PRN ×2 (13:28→16:57)
--- NOTE | 2017-06-01 17:34 | P.PN ---
Subjective Today, patient is stating she has worsening right flank pain. Her and her daughter are not sure if she had a fall or just hit her side at home. There is a small bruise on exam but no hematoma appreciated. Patient has urinary tract infection she was so far treated with IV Levaquin urine culture is positive for E. coli that is resistant to Levaquin. At this time will change IV Levaquin to IV Rocephin and monitor closely. Pain could be related to urinary tract infection. Computed tomography scan of abdomen and pelvis reviewed no significant fluid collection no evidence of hematoma. Patient underwent cardiac catheterization results discussed with Dr. Wall no intervention amenable at this time continue with medical management Patient received significant amount of IV fluid prior to cardiac catheterization due to elevated creatinine, now she is feeling congested and short of breath and unable to lay flat she will be given extra dose of IV Lasix will monitor still tomorrow Objective - Vital Signs Vital signs: Vital Signs Temp 98.9 F 06/01/17 15:00 Pulse 96 06/01/17 15:00 Resp 18 06/01/17 15:00 BP 117/55 06/01/17 15:00 Pulse Ox 96 06/01/17 15:00 Intake & Output 05/31/17 06/01/17 06/01/17 18:59 06:59 18:59 Intake Total 590 340 Balance 590 340 Weight 74.843 kg 74.979 kg Intake: IV 100 cefTRIAXone 1,000 mg In 100 Sodium Chloride 0.9% 50 ml @ 100 mls/hr IVPB Q24H [facility] Rx#:[id number] Oral 590 240 Other: Voiding Method Toilet Toilet Diaper Diaper # Voids 2 2 3 - Exam In general patient is alert and oriented 3 in no apparent distress HEENT head normocephalic and atraumatic Neck is supple no JVD no goiter no lymphadenopathy Chest is clear to auscultation no wheezing Cardiac exam reveals regular heart sounds no murmurs Abdomen is soft nontender no organomegaly Extremity exam reveals no edema no cyanosis or clubbing - Labs CBC & Chem 7: 06/01/17 07:44 06/01/17 07:44 Labs: Abnormal Lab Results - Last 24 Hours (Table) 05/31/17 05/31/17 06/01/17 Range/Units 17:42 23:11 06:54 RBC (3.80-5.40) m/uL Hgb (11.4-16.0) gm/dL Hct (34.0-46.0) % MCV (80.0-100.0) fL RDW (11.5-15.5) % BUN (7-17) mg/dL Glucose (74-99) mg/dL POC Glucose (mg/dL) 344 H 314 H 126 H (75-99) mg/dL ALT (9-52) U/L Alkaline Phosphatase (38-126) U/L Total Protein (6.3-8.2) g/dL Albumin (3.5-5.0) g/dL 06/01/17 06/01/17 06/01/17 Range/Units 07:44 07:44 11:16 RBC 2.76 L (3.80-5.40) m/uL Hgb 8.9 L (11.4-16.0) gm/dL Hct 28.4 L (34.0-46.0) % MCV 102.9 H (80.0-100.0) fL RDW 18.3 H (11.5-15.5) % BUN 23 H (7-17) mg/dL Glucose 122 H (74-99) mg/dL POC Glucose (mg/dL) 238 H (75-99) mg/dL ALT 64 H (9-52) U/L Alkaline Phosphatase 182 H (38-126) U/L Total Protein 6.0 L (6.3-8.2) g/dL Albumin 3.4 L (3.5-5.0) g/dL Assessment and Plan Plan: 1. Acute non-ST elevation myocardial infarction seen and evaluated by cardiology. Awaiting decision regarding possible left heart catheterization tomorrow., 2. History of coronary artery disease with prior stent placement, patient underwent cardiac catheterization was Dr. Duke jiménez and mandible at this time 3. Underlying ischemic cardiomyopathy with known EF of 20% currently compensated 4. Essential hypertension: Blood pressure well-controlled 5. Type 2 diabetes mellitus hold oral agents and continue sliding scale insulin 6. Paroxysmal atrial fibrillation on anticoagulation with Eliquis 7. Mixed hyperlipidemia 8. Mild acute kidney injury, will hold nephrotoxic 9. Large bruise/hematoma 10. For DVT prophylaxis patient encouraged to ambulate, Ellik was restarted this morning by Dr. Krishnamurthy 11. Fluid overload with acute systolic congestive heart failure exacerbation, at this time receiving IV Lasix, will monitor closely 12. Anemia with evidence of iron deficiency patient received 2 doses of IV iron 13. Physical debility Will consult Dr. Leavitt for possible rehab admission 14. grade 2 uterine prolapse and grade 3-4 cystocele, Dr Sanchez input reviewed 15. Chronic ulcers of the left lower extremity wound culture positive for E. coli currently maintained on IV Rocephin awaiting input from infectious disease Will also consult vascular surgery at this time
[2017-06-01 17:43] LABS: Glucose,Whole Blood 238 mg/dL (75-99)
[2017-06-01 21:17] LABS: Glucose,Whole Blood 259 mg/dL (75-99)
--- NOTE | 2017-06-01 22:03 | P.CONS ---
History of Present Illness - Reason for Consult Consult date: 06/01/17 - Chief Complaint Chest pain - History of Present Illness 69-year-old female presents to the emergency center with the onset of chest pain. It was sudden in nature and varied in severity. She is feeling lightheaded and not well. Because her symptoms were persistent she presented to the emergency center. She is a known history of coronary artery disease as well as ischemic cardiomyopathy. She had evidence of an elevated troponin and acute myocardial infarction was diagnosed. He was seen by cardiology. Taken to the cardiovascular suite and attempt for balloon angioplasty, however was not successful. Now be treated with medical management. The patient is developed increasing lower extremity edema much more left than right leg at this time. Left leg and started to open and drain and developed some redness. Because of this the infectious diseases consultation was requested. The patient has been seen by physical medicine rehab and likely be going to rehab in the near future to complete her physical rehabilitation. She will follow closely by cardiology. The patient is denying fever chills or rigors at this time. Is feeling better and looks forward to going to rehab. Review of Systems 69-year-old relates that her chest pain is resolved HEENT:Denies headache or acute visual change. Denies sinus or mouth discomforts. Denies neck stiffness or pain. Denies significant oral cavity pain. Denies difficulty on swallowing. Lungs: Denies significant shortness of breath, cough, sputum production, or hemoptysis. Cardiovascular: Denies significant shortness of breath, chest pain, chest wall pain, orthopnea, dyspnea on exertion, syncope Gastrointestinal:Denies nausea, vomiting, diarrhea, constipation, hematemesis, melena, hematochezia. No no significant change of bowel habit noticed. Musculoskeletal: denies significant myalgias or arthralgias. No new joint swelling. Denies new back pain. Skin: As per the HPI Neuro: Denies headache or visual change. Denies any new onset weakness or difficulty with ambulation. Denies falls or seizures. Psychiatric:Denies anxiety or depression. Endocrine: Denies significant fatigue, denies significant weight loss or weight gain. Past Medical History Past Medical History: Atrial Fibrillation, Heart Failure, Diabetes Mellitus, Hypertension, Myocardial Infarction (OR) Additional Past Medical History / Comment(s): hypothyrodism, Kidney failure, neuropathy. Last Myocardial Infarction Date:: 1994 History of Any Multi-Drug Resistant Organisms: None Reported, MRSA Year Discovered:: 2013 MDRO Source:: left leg Past Surgical History: Cholecystectomy, Coronary Bypass/CABG, Heart Catheterization With Stent, Pacemaker, Tonsillectomy Additional Past Surgical History / Comment(s): Defibrillator, pacemaker, breast reduction, varicous veins Past Anesthesia/Blood Transfusion Reactions: No Reported Reaction Additional Past Anesthesia/Blood Transfusion Reaction / Comm: allergic to propofol Date of Last Stent Placement:: 1994 Type of Cardiac Device: Permanent Pacemaker Device Placement Date:: 2011 Additional Psychological History / Comment(s): for 15 years. retired. Lifelong nonsmoker. No experience. No international travel. Has a pet bird, parakeet at home, grandchildren are caring for it. No change in the home environment Smoking Status: Never smoker - Past Family History Mother Family Medical History: CVA/TIA Additional Family Medical History / Comment(s): at age 43 of a stroke Father Family Medical History: Diabetes Mellitus Additional Family Medical History / Comment(s): age 81 Medications and Allergies Home Medications and Allergies Comment(s): Current Medications Hydrocodone Bitart/Acetaminophen ([place] 10) 1 each PO Q6H PRN PRN Reason: Moderate Pain Last Admin: 06/01/17 13:18 Dose: 1 each Al Hydroxide/Mg Hydroxide (Maalox) 30 ml PO Q4HR PRN PRN Reason: Heartburn Allopurinol (Zyloprim) 300 mg PO DAILY [facility] Last Admin: 06/01/17 08:12 Dose: 300 mg Alprazolam (Xanax) 0.25 mg PO Q6HR PRN PRN Reason: Mild Anxiety Alprazolam (Xanax) 0.5 mg PO Q6HR PRN PRN Reason: Moderate Anxiety Apixaban (Eliquis) 5 mg PO BID [facility] Last Admin: 06/01/17 08:12 Dose: 5 mg Aspirin (Aspirin) 81 mg PO DAILY [facility] Last Admin: 06/01/17 08:12 Dose: 81 mg Atorvastatin Calcium (Lipitor) 40 mg PO HS [facility] Last Admin: 05/31/17 22:16 Dose: 40 mg Atropine Sulfate (Atropine) 0.5 mg IV ONCE PRN PRN Reason: Symptomatic Bradycardia Docusate Sodium (Colace) 100 mg PO BID [facility] Last Admin: 06/01/17 08:12 Dose: Not Given Furosemide (Lasix) 40 mg PO BID@0900,1600 [facility] Last Admin: 06/01/17 16:57 Dose: 40 mg Ceftriaxone Sodium 1,000 mg/ (Sodium Chloride) 50 mls @ 100 mls/hr IVPB Q24H [facility] Last Admin: 06/01/17 13:42 Dose: 100 mls/hr Insulin Glargine (Lantus) 10 unit SQ HS [facility] Last Admin: 05/31/17 22:16 Dose: 10 unit Insulin Human Lispro (Humalog) 0 unit SQ ACHS [facility] PRN Reason: Protocol Last Admin: 06/01/17 17:39 Dose: 3 unit Isosorbide Mononitrate (Imdur) 60 mg PO DAILY [facility] Last Admin: 06/01/17 08:13 Dose: 60 mg Levothyroxine Sodium (Synthroid) 25 mcg PO DAILY@0630 [facility] Last Admin: 06/01/17 06:07 Dose: 25 mcg Lisinopril (Zestril) 10 mg PO DAILY [facility] Last Admin: 06/01/17 08:13 Dose: 10 mg Magnesium Oxide (Mag-Ox) 400 mg PO BID [facility] Last Admin: 06/01/17 07:26 Dose: 400 mg Metoprolol Tartrate (Lopressor) 50 mg PO BID [facility] Last Admin: 06/01/17 07:16 Dose: 50 mg Miscellaneous Information (Magnesium Per Protocol) 1 each MISCELLANE DAILY PRN ; Protocol PRN Reason: Per Protocol Miscellaneous Information (Potassium Per Protocol) 1 each MISCELLANE DAILY PRN ; Protocol PRN Reason: Per Protocol Morphine Sulfate (Morphine Sulfate (Inj)) 2 mg IVP Q4H PRN PRN Reason: Pain/Discomfort Last Admin: 06/01/17 16:57 Dose: 2 mg Nitroglycerin (Nitrostat) 0.4 mg SUBLINGUAL Q5M PRN PRN Reason: Chest Pain Nitroglycerin (Nitrostat) 0.4 mg SUBLINGUAL Q5M PRN PRN Reason: Chest Pain Ondansetron HCl (Zofran) 4 mg IVP Q6HR PRN PRN Reason: Nausea And Vomiting Pantoprazole Sodium (Protonix) 40 mg PO AC-BRKFST [facility] Last Admin: 06/01/17 08:12 Dose: 40 mg Petrolatum (Aquaphor) 1 applic TOPICAL DAILY PRN PRN Reason: Dry Skin Pregabalin (Lyrica) 75 mg PO HS [facility] Last Admin: 05/31/17 22:17 Dose: 75 mg Silver Sulfadiazine (Silvadene Cream) 1 applic TOPICAL BID [facility] Zolpidem Tartrate (Ambien) 5 mg PO HS PRN PRN Reason: Insomnia Home Medications Medication Instructions Recorded Confirmed Type Allopurinol [Zyloprim] 300 mg PO DAILY 04/18/17 05/22/17 History Apixaban [Eliquis] 5 mg PO BID 04/18/17 05/22/17 History Aspirin [Adult Low Dose Aspirin EC] 81 mg PO DAILY 04/18/17 05/22/17 History Atorvastatin [Lipitor] 40 mg PO HS 04/18/17 05/22/17 History Furosemide [Lasix] 40 mg PO HS 04/18/17 05/22/17 History HYDROcodone/APAP 7.5-325MG [[place] 1 tab PO Q6H PRN 04/18/17 05/22/17 History 7.5-325] Isosorbide Mononitrate ER [Imdur] 60 mg PO DAILY 04/18/17 05/22/17 History Levothyroxine Sodium 25 mcg PO DAILY 04/18/17 05/22/17 History Lisinopril [Zestril] 10 mg PO DAILY 04/18/17 05/22/17 History Metoprolol Tartrate [Lopressor] 50 mg PO BID 04/18/17 05/22/17 History Nitroglycerin Sl Tabs [Nitrostat] 0.4 mg SUBLINGUAL Q5M PRN 04/18/17 05/22/17 History Omeprazole 20 mg PO DAILY 04/18/17 05/22/17 History Pregabalin [Lyrica] 75 mg PO HS 04/18/17 05/22/17 History glipiZIDE [Glucotrol] 5 mg PO BID 04/18/17 05/22/17 History Furosemide [Lasix] 80 mg PO DAILY 05/22/17 05/22/17 History Magnesium Oxide [Mag-Ox] 400 mg PO BID 05/22/17 05/22/17 History metFORMIN HCL ER [Glucophage Xr] 500 mg PO BID 05/22/17 05/22/17 History Allergies Allergy/AdvReac Type Severity Reaction Status Date / Time Penicillins Allergy Rash/Hives Verified 05/22/17 08:26 propofol Allergy Unknown Verified 05/22/17 08:26 sulfamethoxazole AdvReac Abdominal Verified 05/22/17 08:26 [From Bactrim] Pain trimethoprim [From Bactrim] AdvReac Abdominal Verified 05/22/17 08:26 Pain Physical Exam Vitals: Vital Signs Temp Pulse Resp BP BP Pulse Ox 06/01/17 15:00 98.9 F 96 18 117/55 96 06/01/17 08:02 96.8 F L 69 18 96 06/01/17 08:00 69 18 06/01/17 07:08 94 L 05/31/17 22:22 96.3 F L 59 L 16 116/56 94 L Intake and Output 06/01/17 06/01/17 06/01/17 06:59 14:59 22:59 Intake Total 340 Balance 340 Intake: IV 100 cefTRIAXone 1,000 mg In 100 Sodium Chloride 0.9% 50 ml @ 100 mls/hr IVPB Q24H [facility] Rx#:[id number] Oral 240 Other: Voiding Method Toilet Diaper # Voids 3 Weight 74.843 kg 74.979 kg Patient Weight 06/02/17 06:59 Weight 74.979 kg 77-year-old female presents to Hospital with complaints of chest pain. Was found evidence of an acute myocardial infarction. HEENT: Anicteric conjunctiva are pink and moist nasal mucosa grossly intact without significant lesions, there is no thrush. Neck: The neck is supple without significant lymphadenopathy or thyromegaly. Lungs: Symmetrical bilateral air entry without significant crackles or wheezing. There is no significant bronchial sounds. There is no egophony or dullness. Heart: Irregular with an audible S1 and S2 loud S4 2/6 systolic murmur left sternal border PMI nondisplaced Abdomen: Obese Positive bowel sounds soft and nontender without palpable masses or organomegaly. There was no guarding or rebound. Extremities: The upper extremities have excellent pulses they are symmetric, no significant petechiae or telangiectasia. No splinter hemorrhages were noted. The lower shimmy show evidence of the extensive edema bilaterally. Right leg has edema but no ulcerations. Left leg has evidence of multiple ulcerations distal to the knee and above the ankle. There are scattered and have drainage of a small amount of serous material. She relates that she scratched a few of them that taryn a bit of bloody material and some of them. Leg has erythema which is tender in the leg feels irritated. Neuro: Awake alert oriented to person place and time. There are no acute new gross focal sensory motor deficits. Results CBC & Chem 7: 06/01/17 07:44 06/01/17 07:44 Labs: Abnormal Lab Results - Last 24 Hours (Table) 05/31/17 06/01/17 06/01/17 Range/Units 23:11 06:54 07:44 RBC 2.76 L (3.80-5.40) m/uL Hgb 8.9 L (11.4-16.0) gm/dL Hct 28.4 L (34.0-46.0) % MCV 102.9 H (80.0-100.0) fL RDW 18.3 H (11.5-15.5) % BUN (7-17) mg/dL Glucose (74-99) mg/dL POC Glucose (mg/dL) 314 H 126 H (75-99) mg/dL ALT (9-52) U/L Alkaline Phosphatase (38-126) U/L Total Protein (6.3-8.2) g/dL Albumin (3.5-5.0) g/dL 06/01/17 06/01/17 06/01/17 Range/Units 07:44 11:16 17:27 RBC (3.80-5.40) m/uL Hgb (11.4-16.0) gm/dL Hct (34.0-46.0) % MCV (80.0-100.0) fL RDW (11.5-15.5) % BUN 23 H (7-17) mg/dL Glucose 122 H (74-99) mg/dL POC Glucose (mg/dL) 238 H 238 H (75-99) mg/dL ALT 64 H (9-52) U/L Alkaline Phosphatase 182 H (38-126) U/L Total Protein 6.0 L (6.3-8.2) g/dL Albumin 3.4 L (3.5-5.0) g/dL 06/01/17 Range/Units 20:45 RBC (3.80-5.40) m/uL Hgb (11.4-16.0) gm/dL Hct (34.0-46.0) % MCV (80.0-100.0) fL RDW (11.5-15.5) % BUN (7-17) mg/dL Glucose (74-99) mg/dL POC Glucose (mg/dL) 259 H (75-99) mg/dL ALT (9-52) U/L Alkaline Phosphatase (38-126) U/L Total Protein (6.3-8.2) g/dL Albumin (3.5-5.0) g/dL Laboratory Results WBC 7.2 k/uL (3.8-10.6) 06/01/17 07:44 RBC 2.76 m/uL (3.80-5.40) L 06/01/17 07:44 Hgb 8.9 gm/dL (11.4-16.0) L 06/01/17 07:44 Hct 28.4 % (34.0-46.0) L 06/01/17 07:44 MCV 102.9 fL (80.0-100.0) H 06/01/17 07:44 MCH 32.2 pg (25.0-35.0) 06/01/17 07:44 MCHC 31.3 g/dL (31.0-37.0) 06/01/17 07:44 RDW 18.3 % (11.5-15.5) H 06/01/17 07:44 Plt Count 258 k/uL (150-450) 06/01/17 07:44 Neutrophils % 73 % 06/01/17 07:44 Lymphocytes % 17 % 06/01/17 07:44 Monocytes % 5 % 06/01/17 07:44 Eosinophils % 3 % 06/01/17 07:44 Basophils % 0 % 06/01/17 07:44 Neutrophils # 5.3 k/uL (1.3-7.7) 06/01/17 07:44 Lymphocytes # 1.2 k/uL (1.0-4.8) 06/01/17 07:44 Monocytes # 0.3 k/uL (0-1.0) 06/01/17 07:44 Eosinophils # 0.2 k/uL (0-0.7) 06/01/17 07:44 Basophils # 0.0 k/uL (0-0.2) 06/01/17 07:44 Hypochromasia Slight 06/01/17 07:44 Poikilocytosis Slight 06/01/17 07:44 Anisocytosis Slight 06/01/17 07:44 Macrocytosis Moderate 06/01/17 07:44 PT 11.3 sec (9.0-12.0) 05/22/17 00:10 INR 1.1 (<1.2) 05/22/17 00:10 APTT 21.3 sec (22.0-30.0) L 05/22/17 00:10 D-Dimer 1.23 mg/L FEU (<0.60) H 05/22/17 00:10 Sodium 141 mmol/L (137-145) 06/01/17 07:44 Potassium 3.9 mmol/L (3.5-5.1) 06/01/17 07:44 Chloride 104 mmol/L (98-107) 06/01/17 07:44 Carbon Dioxide 26 mmol/L (22-30) 06/01/17 07:44 Anion Gap 11 mmol/L 06/01/17 07:44 BUN 23 mg/dL (7-17) H 06/01/17 07:44 Creatinine 1.03 mg/dL (0.52-1.04) 06/01/17 07:44 Est GFR (MDRD) Af Amer >60 (>60 ml/min/1.73 sqM) 06/01/17 07:44 Est GFR (MDRD) Non-Af 52 (>60 ml/min/1.73 sqM) 06/01/17 07:44 Glucose 122 mg/dL (74-99) H 06/01/17 07:44 POC Glucose (mg/dL) 259 mg/dL (75-99) H 06/01/17 20:45 POC Glu Bank Boss ID Anika Martin 06/01/17 20:[address] Glu mg/dL 163 mg/dL 05/22/17 06:02 Hemoglobin A1c 7.3 % (4.2-6.1) H 05/22/17 06:02 Calcium 9.1 mg/dL (8.4-10.2) 06/01/17 07:44 Phosphorus 2.6 mg/dL (2.5-4.5) 05/27/17 05:55 Magnesium 1.8 mg/dL (1.6-2.3) 05/27/17 05:55 Iron 43 ug/dL (37-170) 05/28/17 05:58 TIBC 243 ug/dL (265-497) L 05/28/17 05:58 % Saturation 17.7 % (20-50) L 05/28/17 05:58 Total Bilirubin 0.5 mg/dL (0.2-1.3) 06/01/17 07:44 AST 30 U/L (14-36) 06/01/17 07:44 ALT 64 U/L (9-52) H 06/01/17 07:44 Alkaline Phosphatase 182 U/L (38-126) H 06/01/17 07:44 Total Creatine Kinase 635 U/L (30-135) H 05/22/17 11:31 CK-MB (CK-2) 18.8 ng/mL (0.0-2.4) H* 05/22/17 11:31 CK-MB (CK-2) Rel Index 3.0 05/22/17 11:31 Troponin I 5.610 ng/mL (0.000-0.034) H* 05/22/17 11:31 NT-Pro-B Natriuret Pep 58472 pg/mL 05/27/17 05:55 Total Protein 6.0 g/dL (6.3-8.2) L 06/01/17 07:44 Albumin 3.4 g/dL (3.5-5.0) L 06/01/17 07:44 Triglycerides 69 mg/dL (<150) 05/22/17 06:02 Cholesterol 110 mg/dL (<200) 05/22/17 06:02 LDL Cholesterol, Calc 49 mg/dL (0-99) 05/22/17 06:02 HDL Cholesterol 47 mg/dL (40-60) 05/22/17 06:02 Lipase 202 U/L (23-300) 05/22/17 00:10 Vitamin B12 347 pg/mL 05/28/17 05:58 Folate 10.1 ng/mL 05/28/17 05:58 Urine Color Yellow 05/22/17 04:15 Urine Appearance Cloudy (Clear) H 05/22/17 04:15 Urine pH 5.5 (5.0-8.0) 05/22/17 04:15 Ur Specific [place] 1.013 (1.001-1.035) 05/22/17 04:15 Urine Protein Trace (Negative) H 05/22/17 04:15 Urine Glucose (UA) Trace (Negative) H 05/22/17 04:15 Urine Ketones Trace (Negative) H 05/22/17 04:15 Urine Blood Negative (Negative) 05/22/17 04:15 Urine Nitrite Negative (Negative) 05/22/17 04:15 Urine Bilirubin Negative (Negative) 05/22/17 04:15 Urine Urobilinogen <2.0 mg/dL (<2.0) 05/22/17 04:15 Ur Leukocyte Esterase Large (Negative) H 05/22/17 04:15 Urine RBC 1 /hpf (0-5) 05/22/17 04:15 Urine WBC 180 /hpf (0-5) H 05/22/17 04:15 Urine WBC Clumps Occasional /hpf (None) H 05/22/17 04:15 Ur Squamous Epith Cells 5 /hpf (0-4) H 05/22/17 04:15 Urine Bacteria Rare /hpf (None) H 05/22/17 04:15 Hyaline Casts 2 /lpf (0-2) 05/22/17 04:15 Urine Mucus Rare /hpf (None) H 05/22/17 04:15 Microbiology 05/26/17 11:30 Leg - Left Gram Stain - Final 05/26/17 11:30 Leg - Left Wound Culture - Final Escherichia coli 05/22/17 04:15 Urine,Voided Urine Culture - Final Escherichia coli Assessment and Plan (1) Chest pain Status: Acute (2) Congestive heart failure with cardiomyopathy Status: Acute (3) Bilateral lower extremity edema Narrative/Plan: 77-year-old female presents to Hospital significant chest pain. At presentation there was evidence of a myocardial infarction and was seen by cardiology. Was not able to have a successful balloon angioplasty or stent placed. The patient's entry with maximal medical therapy and is improving. However she does have cardiomyopathy in his lower extremity edema with her chronic congestive heart failure. Left leg is much worse than the right. She relates that she's had no clot in the left leg but it often gives her more troubles in the right. She does occasionally wear some stockings. The left leg shows evidence of the cellulitis and the multiple small skin ulcerations from the edema in venous stasis. It is tender. Local wound care will be applied with Silvadene wrap. Stocking will be applied to the right lower extremity. To elevate her legs at rest as much as she possibly can to help the edema. She is receiving maximal medical therapy for her underlying ischemic cardiomyopathy. She does have a mild cellulitic response occurring cefuroxime 500 mg every 12 hours will be utilized orally when she is transitioning from the current ceftriaxone. Wound culture and urine culture both have Escherichia coli susceptible to the cephalosporins. Expect her to transfer to rehab tomorrow where she can continue with the Silvadene wrap and cefuroxime until she improves in the next week. We'll ask if she can have a multivitamin She is evidence of an ecchymotic area on the right abdominal wall. She does have significant anticoagulation. Her daughter was concerned she had a fall but she does not recall a fall. It is likely just from bruising on a counter or similar surface given its location Arnica gel could be helpful with this bruising Status: Acute
[2017-06-01] MEDS: INSULIN GLARGINE 100 UNIT/ML 10 ML VIAL SQ SCH (22:11)
[2017-06-01] MEDS: ATORVASTATIN 40 MG TAB PO SCH (22:11)
[2017-06-01] MEDS: PREGABALIN 75 MG CAP PO SCH (22:16)
[2017-06-02] MEDS: LEVOTHYROXINE 25 MCG TAB PO SCH (06:23)
[2017-06-02 07:54] LABS: Anisocytosis Slight; Basophils % (A) 0 %; CH 33.1; CHCM 32.6; Eosinophils # (A) 0.3 k/uL (0-0.7); Eosinophils % (A) 4 %; HDW 3.69; Hypochromasia Slight; Luc # (Auto) 0.19; Luc % (Auto) 3; Lymphocytes # (A) 1.2 k/uL (1.0-4.8); Lymphocytes % (A) 18 %; MCH 32.9 pg (25.0-35.0); MCHC 32.1 g/dL (31.0-37.0); MCV 102.7 fL (80.0-100.0); Macrocytosis Moderate; Mean Platelet Volume 8.2; Monocytes # (A) 0.4 k/uL (0-1.0); Monocytes % (A) 6 %; Neutrophils # (A) 4.6 k/uL (1.3-7.7); Neutrophils % (A) 69 %; Poikilocytosis Slight; RBC 2.44 m/uL (3.80-5.40); RDW 18.4 % (11.5-15.5); WBC 6.7 k/uL (3.8-10.6); WBC (Perox) 7.12
[2017-06-02 08:16] LABS: ALT 47 U/L (9-52); AST 22 U/L (14-36); Alkaline Phosphatase 151 U/L (38-126); Anion Gap 8 mmol/L; Blood Urea Nitrogen 22 mg/dL (7-17); Calcium 8.9 mg/dL (8.4-10.2); Carbon Dioxide 26 mmol/L (22-30); Chloride 104 mmol/L (98-107); Glucose 139 mg/dL (74-99); Non-African American GFR(MDRD) 58 (>60 ml/min/1.73 sqM); Sodium 138 mmol/L (137-145); Total Bilirubin 0.5 mg/dL (0.2-1.3); Total Protein 5.5 g/dL (6.3-8.2)
[2017-06-02 09:26] VITALS: RESP 20; TEMP 97.7
[2017-06-02] MEDS: PANTOPRAZOLE 40 MG TABLET PO SCH (10:37)
[2017-06-02] MEDS: APIXABAN 5 MG TAB PO SCH (10:38)
[2017-06-02] MEDS: ALLOPURINOL 300 MG TAB PO SCH (10:38)
[2017-06-02] MEDS: ASPIRIN 81 MG PO SCH (10:39)
[2017-06-02] MEDS: FUROSEMIDE 40 MG TAB PO SCH (10:39)
[2017-06-02] MEDS: ISOSORBIDE MONONITRATE ER 60 MG TAB.ER.24H PO SCH (10:40)
[2017-06-02] MEDS: MAGNESIUM OXIDE 400 MG TAB PO SCH (10:40)
[2017-06-02] MEDS: LISINOPRIL 10 MG TAB PO SCH (10:40)
[2017-06-02] MEDS: DOCUSATE 100 MG CAP PO SCH (10:43)
[2017-06-02] MEDS: INSULIN LISPRO (humaLOG) 300 UNIT/3 ML VIAL SQ SCH ×2 (10:58→14:01)
--- NOTE | 2017-06-02 11:04 | P.PN ---
Subjective Patient admitted to the hospital for an acute OK. Scheduled for heart catheterization today. No further chest pain. Still having some right flank pain there is evidence of bruising. Pain controlled with pain medications. Patient also having more swelling in the left leg and evidence of some mild cellulitis. She is currently on Rocephin for UTI. Patient denies any chest pain. He does omit to some shortness of breath and fatigue with ambulating. Last bowel movement 4 days ago. Denies any burning with urination. 05/30/2017 patient still having some shortness of breath. Especially when she lays flat. She denies any chest pain. Denies any nausea or vomiting. She was able to have a bowel movement after an enema yesterday. She has any burning with urination. Still having some difficulty with ambulating due to her generalized weakness 05/31/2017 patient is currently on the fifth floor. She's awaiting vascular surgery to evaluate her in regards to her chronic lower extremity ulcers. Patient has no new complaints. Denies any chest pain or shortness of breath. Denies any nausea or vomiting. Denies any bowel movement changes or urinary symptoms Objective - Vital Signs Vital signs: Vital Signs Temp 97.7 F 06/02/17 07:00 Pulse 60 06/02/17 07:00 Resp 20 06/02/17 07:00 BP 98/53 06/02/17 07:00 Pulse Ox 94 L 06/02/17 07:00 Intake & Output 06/01/17 06/02/17 06/02/17 18:59 06:59 18:59 Intake Total 340 240 Balance 340 240 Weight 74.979 kg 76 kg Intake: IV 100 cefTRIAXone 1,000 mg In 100 Sodium Chloride 0.9% 50 ml @ 100 mls/hr IVPB Q24H [facility] Rx#:[id number] Oral 240 240 Other: Voiding Method Toilet Toilet Diaper # Voids 3 1 - Exam Head normocephalic Neck supple Lungs clear to auscultation bilaterally no wheezing or crackles Heart regular rate and rhythm S1-S2, no rub or gallop Abdomen is soft nontender nondistended positive bowel sounds no hepatosplenomegaly Extremities chronic changes of left leg with some skin breakdown. Lower extremity edema present bilaterally, more so on the right Neuro alert and orientated to 3 - Labs CBC & Chem 7: 06/02/17 07:25 06/02/17 07:25 Labs: Abnormal Lab Results - Last 24 Hours (Table) 06/01/17 06/01/17 06/01/17 Range/Units 11:16 17:27 20:45 RBC (3.80-5.40) m/uL Hgb (11.4-16.0) gm/dL Hct (34.0-46.0) % MCV (80.0-100.0) fL RDW (11.5-15.5) % BUN (7-17) mg/dL Glucose (74-99) mg/dL POC Glucose (mg/dL) 238 H 238 H 259 H (75-99) mg/dL Alkaline Phosphatase (38-126) U/L Total Protein (6.3-8.2) g/dL Albumin (3.5-5.0) g/dL 06/02/17 06/02/17 Range/Units 07:25 07:25 RBC 2.44 L (3.80-5.40) m/uL Hgb 8.0 L (11.4-16.0) gm/dL Hct 25.0 L (34.0-46.0) % MCV 102.7 H (80.0-100.0) fL RDW 18.4 H (11.5-15.5) % BUN 22 H (7-17) mg/dL Glucose 139 H (74-99) mg/dL POC Glucose (mg/dL) (75-99) mg/dL Alkaline Phosphatase 151 H (38-126) U/L Total Protein 5.5 L (6.3-8.2) g/dL Albumin 3.0 L (3.5-5.0) g/dL Assessment and Plan Plan: 1. Acute non-ST elevation myocardial infarction seen and evaluated by cardiology. Status post heart catheterization with no intervention cardiology is recommending medical management 2. History of coronary artery disease with prior stent placement 3. Underlying ischemic cardiomyopathy with known EF of 20% currently compensated 4. Essential hypertension: Blood pressure well-controlled 5. Type 2 diabetes mellitus hold oral agents and continue sliding scale insulin 6. Paroxysmal atrial fibrillation on anticoagulation with Eliquis. 7. Mixed hyperlipidemia 8. Mild acute kidney injury, will hold nephrotoxic. Kidney functions did improve with IV fluids. 9. Constipation add Colace 10. Left lower extremity cellulitis. Wound culture showing rare E. coli, continue Rocephin 11. UTI: continue Rocephin, urine culture growing E. coli 12. Acute systolic CHF exacerbation: Now improved. Continue with oral Lasix 13. Iron deficiency anemia. Patient did receive a dose of IV iron. Hemoglobin is at 8.0. Continue to monitor 14. Large hematoma right side of the abdomen 15. Physical ability: Patient will require rehab placement at time of discharge. Likely she'll be discharged to an ECF within the next couple a days. 16. Mildly elevated LFTs. Possibly related to fluid congestion in the liver. Continue to monitor. LFTs are showing improvement even while on the Lipitor. 17. Grade 2 uterine prolapse and grade 3-4 cystocele. Patient evaluated by Dr. Sanchez. She'll follow up with patient outpatient and at that time place the Pessary 18. Chronic ulcers of the left lower extremity. Wound cultures growing E. coli. Currently on IV Rocephin. Patient seen by infectious disease the recommending Ceftin at time of discharge. Awaiting this was surgery evaluation 19. Moderate protein calorie malnutrition: Start Glucerna Anticipate discharge possibly tomorrow to [facility] I performed an examination of the patient and discussed their management with the physician Layout Former. I have reviewed the Physician Layout Former's notes and agree with the documented findings and plan of care
[2017-06-02] MEDS ORDERED: B COMPLEX-VIT C-VIT E-ZINC 1 EACH TAB PO SCH (12:00)
[2017-06-02 12:07] VITALS: BP 123/73; PULSE 62
[2017-06-02 12:26] LABS: Glucose,Whole Blood 147 mg/dL (75-99)
[2017-06-02 12:26] LABS: Glucose,Whole Blood 199 mg/dL (75-99)
--- NOTE | 2017-06-02 12:33 | P.DS ---
Providers Date of admission: 05/21/17 23:45 Expected date of discharge: 06/02/17 Attending physician: Aneta Berger Consults: 05/21/17 23:45 Consult Physician Urgent Consulting Provider: Sylvester Beth Consult Reason/Comments: cp Do you want consulting provider notified?: Yes 05/26/17 13:41 Consult Physician Routine Consulting Provider: [facility] Consult Reason/Comments: Post Interventional patient Do you want consulting provider notified?: Already Contacted 05/29/17 14:03 Consult Physician Routine Consulting Provider: Morgan Guzman Consult Reason/Comments: possible rehab admission Do you want consulting provider notified?: Yes 05/31/17 09:02 Consult Physician Routine Consulting Provider: Olga Sanchez Consult Reason/Comments: symptomatic cystocele Do you want consulting provider notified?: Already Contacted 05/31/17 15:44 Consult Physician Routine Consulting Provider: Kendrick Gu Consult Reason/Comments: left leg wound Do you want consulting provider notified?: Yes 06/01/17 17:34 Consult Physician Routine Consulting Provider: Tony Vang Consult Reason/Comments: chronic lower extremity ulcers Do you want consulting provider notified?: Yes Primary care physician: [facility] Course: Discharge diagnosis 1. Acute non-ST elevation myocardial infarction seen and evaluated by cardiology. Status post heart catheterization that showed patent pillai to the LAD, patent SVG to the diagonal branch with significant obstructive disease in the mid diagonal branch occluded to the right coronary artery. Attempted angioplasty of the diagonal branch was unsuccessful due to inability to advance the balloon because of severe calcification and severe angulation of the vessels. Therefore cardiology is recommending medical management only 2. History of coronary artery disease with prior stent placement 3. Underlying ischemic cardiomyopathy with known EF of 20% currently compensated 4. Essential hypertension: Blood pressure well-controlled 5. Type 2 diabetes mellitus hold oral agents and continue sliding scale insulin 6. Paroxysmal atrial fibrillation on anticoagulation with Eliquis. 7. Mixed hyperlipidemia 8. Mild acute kidney injury, will hold nephrotoxic. Kidney functions did improve with IV fluids. 9. Constipation add Colace 10. Left lower extremity cellulitis. Wound culture showing rare E. coli, continue Rocephin 11. UTI: continue Rocephin, urine culture growing E. coli 12. Acute systolic CHF exacerbation: Now improved. Continue with oral Lasix 13. Iron deficiency anemia. Patient did receive a dose of IV iron. Hemoglobin is at 8.0. Continue to monitor 14. Large hematoma right side of the abdomen. Due to injury to that area from a fall 15. Physical ability: Patient will require rehab placement at time of discharge. Likely she'll be discharged to an ECF within the next couple a days. 16. Mildly elevated LFTs. Possibly related to fluid congestion in the liver. Continue to monitor. LFTs are showing improvement even while on the Lipitor. 17. Grade 2 uterine prolapse and grade 3-4 cystocele. Patient evaluated by Dr. Sanchez. She'll follow up with patient outpatient and at that time place the Pess[facility] 18. Chronic ulcers of the left lower extremity. Wound cultures growing E. coli. Currently on IV Rocephin. Patient seen by infectious disease the recommending Ceftin at time of discharge. Awaiting this was surgery evaluation 19. Moderate protein calorie malnutrition: Start Glucerna 20. Acute systolic CHF exacerbation Hospital course This is a 76-year-old female with past medical history noted below significant for coronary artery disease with underlying ischemic cardiomyopathy who presented to the hospital with chest pain. Troponins were elevated. She was treated as an acute non-ST elevated myocardial infarction. Patient was seen by cardiology. Patient underwent a heart catheterization as stated above there is evidence of occlusion in the diagonal branch and they were unsuccessful and advancing the balloon because of severe calcification and severe angulation of the vessels. Therefore cardiology is recommending medical management. Patient has been chest pain-free. Chest she also had evidence of congestive heart failure she has a known EF of 20%. He required a few doses of IV Lasix. She had some evidence of acute kidney injury due to the diuretics. Kidney functions did show improvement. Her Lasix will be adjusted again back to her home dose of 80 mg in the morning and 40 mg in the evening. Patient is still have some lower extremity edema. However, her symptoms have improved since admission cardiology is cleared for discharge. Patient also seen evaluated by MEDICAL STAFF PHYSICIAN service due to uterine prolapse and cystocele. She'll be following up with them outpatient for further management of those issues. Patient has chronic leg ulcers and evidence of cellulitis. Wound culture grew E. coli. She also had evidence of a UTI with urine culture growing E. coli. She was seen by infectious disease and the recommending Ceftin 500 mg twice a day for one week. Also recommending Silvadene to that leg. Patient also had evidence of iron deficiency anemia received a few doses of IV iron hemoglobin at discharge is 8. She'll be sent home with ferrous sulfate 325 mg twice a day. Recommend checking CBC and BMP on Tuesday. Patient is medically stable to discharge to [facility] for further rehabilitation. Dr. Berger we'll follow patient at [facility]. Patient is medically stable for discharge. Please refer to chart for any further details. I performed an examination of the patient and discussed their management with the physician Machine Sander. I have reviewed the Physician Machine Sander's notes and agree with the documented findings and plan of care Patient Condition at Discharge: Stable Plan - Discharge Summary New Discharge Prescriptions: New B Complex-Vit C-Vit E-Zinc [Z-Bec] 1 each PO DAILY@1200 tab Cefuroxime Axetil [Ceftin] 500 mg PO BID #14 tab Docusate [Colace] 100 mg PO BID cap Ferrous Sulfate [Feosol] 325 mg PO BID #60 tab SILVER sulfADIAZINE CREAM [Silvadene Cream] 1 applic TOPICAL BID #1 tube Continue Omeprazole 20 mg PO DAILY Nitroglycerin Sl Tabs [Nitrostat] 0.4 mg SUBLINGUAL Q5M PRN PRN Reason: Chest Pain Metoprolol Tartrate [Lopressor] 50 mg PO BID Pregabalin [Lyrica] 75 mg PO HS Lisinopril [Zestril] 10 mg PO DAILY Levothyroxine Sodium 25 mcg PO DAILY glipiZIDE [Glucotrol] 5 mg PO BID Isosorbide Mononitrate ER [Imdur] 60 mg PO DAILY Furosemide [Lasix] 40 mg PO HS Apixaban [Eliquis] 5 mg PO BID Atorvastatin [Lipitor] 40 mg PO HS Aspirin [Adult Low Dose Aspirin EC] 81 mg PO DAILY Allopurinol [Zyloprim] 300 mg PO DAILY Magnesium Oxide [Mag-Ox] 400 mg PO BID Furosemide [Lasix] 80 mg PO DAILY metFORMIN HCL ER [Glucophage Xr] 500 mg PO BID HYDROcodone/APAP 7.5-325MG [[place] 7.5-325] 1 tab PO Q6H PRN #40 PRN Reason: Pain Discharge Medication List Allopurinol [Zyloprim] 300 mg PO DAILY 04/18/17 [History] Apixaban [Eliquis] 5 mg PO BID 04/18/17 [History] Aspirin [Adult Low Dose Aspirin EC] 81 mg PO DAILY 04/18/17 [History] Atorvastatin [Lipitor] 40 mg PO HS 04/18/17 [History] Furosemide [Lasix] 40 mg PO HS 04/18/17 [History] Isosorbide Mononitrate ER [Imdur] 60 mg PO DAILY 04/18/17 [History] Levothyroxine Sodium 25 mcg PO DAILY 04/18/17 [History] Lisinopril [Zestril] 10 mg PO DAILY 04/18/17 [History] Metoprolol Tartrate [Lopressor] 50 mg PO BID 04/18/17 [History] Nitroglycerin Sl Tabs [Nitrostat] 0.4 mg SUBLINGUAL Q5M PRN 04/18/17 [History] Omeprazole 20 mg PO DAILY 04/18/17 [History] Pregabalin [Lyrica] 75 mg PO HS 04/18/17 [History] glipiZIDE [Glucotrol] 5 mg PO BID 04/18/17 [History] Furosemide [Lasix] 80 mg PO DAILY 05/22/17 [History] Magnesium Oxide [Mag-Ox] 400 mg PO BID 05/22/17 [History] metFORMIN HCL ER [Glucophage Xr] 500 mg PO BID 05/22/17 [History] B Complex-Vit C-Vit E-Zinc [Z-Bec] 1 each PO DAILY@1200 tab 06/02/17 [Rx] Cefuroxime Axetil [Ceftin] 500 mg PO BID #14 tab 06/02/17 [Rx] Docusate [Colace] 100 mg PO BID cap 06/02/17 [Rx] Ferrous Sulfate [Feosol] 325 mg PO BID #60 tab 06/02/17 [Rx] HYDROcodone/APAP 7.5-325MG [[place] 7.5-325] 1 tab PO Q6H PRN #40 06/02/17 [Rx] SILVER sulfADIAZINE CREAM [Silvadene Cream] 1 applic TOPICAL BID #1 tube [Rx] Follow up Appointment(s)/Referral(s): Giovanny Cesar MD [Primary Care Provider] - 1 Week Kenneth Viveros MD [STAFF PHYSICIAN] - 1 Week Olga Sanchez MD [STAFF PHYSICIAN] - 3 Weeks Activity/Diet/Wound Care/Special Instructions: Diet: cardiac, diabetic Activity: as tolerated ok to discharge to [facility]. Dr. Berger will follow her there. Discharge Disposition: TRANSFER TO SNF/ECF
[2017-06-02] MEDS: METOPROLOL TARTRATE 50 MG TAB PO SCH (13:05)
[2017-06-02] MEDS ORDERED: INSULIN GLARGINE 100 UNIT/ML 10 ML VIAL SQ SCH (21:00)
--- NOTE | 2017-06-02 22:06 | P.PN ---
Subjective Principal diagnosis: chest pain 69-year-old female presents to the emergency center with the onset of chest pain. It was sudden in nature and varied in severity. She is feeling lightheaded and not well. Because her symptoms were persistent she presented to the emergency center. She is a known history of coronary artery disease as well as ischemic cardiomyopathy. She had evidence of an elevated troponin and acute myocardial infarction was diagnosed. He was seen by cardiology. Taken to the cardiovascular suite and attempt for balloon angioplasty, however was not successful. Now be treated with medical management. The patient is developed increasing lower extremity edema much more left than right leg at this time. Left leg and started to open and drain and developed some redness. Because of this the infectious diseases consultation was requested. The patient has been seen by physical medicine rehab and likely be going to rehab in the near future to complete her physical rehabilitation. She will follow closely by cardiology. The patient is denying fever chills or rigors at this time. Is feeling better and looks forward to going to rehab. No new complaints today Objective - Vital Signs Vital signs: Vital Signs Temp 97.7 F 06/02/17 07:00 Pulse 62 06/02/17 12:06 Resp 20 06/02/17 07:00 BP 123/73 06/02/17 12:06 Pulse Ox 94 L 06/02/17 07:00 Intake & Output 06/02/17 06/02/17 06/03/17 06:59 18:59 06:59 Intake Total 240 Balance 240 Weight 76 kg Intake: Oral 240 Other: Voiding Method Toilet Toilet # Voids 1 1 - Exam 77-year-old female presents to Hospital with complaints of chest pain. Was found evidence of an acute myocardial infarction. HEENT: Anicteric conjunctiva are pink and moist nasal mucosa grossly intact without significant lesions, there is no thrush. Neck: The neck is supple without significant lymphadenopathy or thyromegaly. Lungs: Symmetrical bilateral air entry without significant crackles or wheezing. There is no significant bronchial sounds. There is no egophony or dullness. Heart: Irregular with an audible S1 and S2 loud S4 2/6 systolic murmur left sternal border PMI nondisplaced Abdomen: Obese Positive bowel sounds soft and nontender without palpable masses or organomegaly. There was no guarding or rebound. Extremities: The upper extremities have excellent pulses they are symmetric, no significant petechiae or telangiectasia. No splinter hemorrhages were noted. The lower extremity show evidence of the edema bilaterally. Right leg has edema but no ulcerations. Left leg has evidence of multiple ulcerations distal to the knee and above the ankle. There are scattered and have drainage of a small amount of serous material. Feel better since silvadene and wraps Neuro: Awake alert oriented to person place and time. There are no acute new gross focal sensory motor deficits. - Labs CBC & Chem 7: 06/02/17 07:25 06/02/17 07:25 Labs: Abnormal Lab Results - Last 24 Hours (Table) 06/02/17 06/02/17 06/02/17 Range/Units 07:19 07:25 07:25 RBC 2.44 L (3.80-5.40) m/uL Hgb 8.0 L (11.4-16.0) gm/dL Hct 25.0 L (34.0-46.0) % MCV 102.7 H (80.0-100.0) fL RDW 18.4 H (11.5-15.5) % BUN 22 H (7-17) mg/dL Glucose 139 H (74-99) mg/dL POC Glucose (mg/dL) 147 H (75-99) mg/dL Alkaline Phosphatase 151 H (38-126) U/L Total Protein 5.5 L (6.3-8.2) g/dL Albumin 3.0 L (3.5-5.0) g/dL 06/02/17 Range/Units 11:55 RBC (3.80-5.40) m/uL Hgb (11.4-16.0) gm/dL Hct (34.0-46.0) % MCV (80.0-100.0) fL RDW (11.5-15.5) % BUN (7-17) mg/dL Glucose (74-99) mg/dL POC Glucose (mg/dL) 199 H (75-99) mg/dL Alkaline Phosphatase (38-126) U/L Total Protein (6.3-8.2) g/dL Albumin (3.5-5.0) g/dL Laboratory Results WBC 6.7 k/uL (3.8-10.6) 06/02/17 07:25 RBC 2.44 m/uL (3.80-5.40) L 06/02/17 07:25 Hgb 8.0 gm/dL (11.4-16.0) L 06/02/17 07:25 Hct 25.0 % (34.0-46.0) L 06/02/17 07:25 MCV 102.7 fL (80.0-100.0) H 06/02/17 07:25 MCH 32.9 pg (25.0-35.0) 06/02/17 07:25 MCHC 32.1 g/dL (31.0-37.0) 06/02/17 07:25 RDW 18.4 % (11.5-15.5) H 06/02/17 07:25 Plt Count 235 k/uL (150-450) 06/02/17 07:25 Neutrophils % 69 % 06/02/17 07:25 Lymphocytes % 18 % 06/02/17 07:25 Monocytes % 6 % 06/02/17 07:25 Eosinophils % 4 % 06/02/17 07:25 Basophils % 0 % 06/02/17 07:25 Neutrophils # 4.6 k/uL (1.3-7.7) 06/02/17 07:25 Lymphocytes # 1.2 k/uL (1.0-4.8) 06/02/17 07:25 Monocytes # 0.4 k/uL (0-1.0) 06/02/17 07:25 Eosinophils # 0.3 k/uL (0-0.7) 06/02/17 07:25 Basophils # 0.0 k/uL (0-0.2) 06/02/17 07:25 Hypochromasia Slight 06/02/17 07:25 Poikilocytosis Slight 06/02/17 07:25 Anisocytosis Slight 06/02/17 07:25 Macrocytosis Moderate 06/02/17 07:25 PT 11.3 sec (9.0-12.0) 05/22/17 00:10 INR 1.1 (<1.2) 05/22/17 00:10 APTT 21.3 sec (22.0-30.0) L 05/22/17 00:10 D-Dimer 1.23 mg/L FEU (<0.60) H 05/22/17 00:10 Sodium 138 mmol/L (137-145) 06/02/17 07:25 Potassium 4.0 mmol/L (3.5-5.1) 06/02/17 07:25 Chloride 104 mmol/L (98-107) 06/02/17 07:25 Carbon Dioxide 26 mmol/L (22-30) 06/02/17 07:25 Anion Gap 8 mmol/L 06/02/17 07:25 BUN 22 mg/dL (7-17) H 06/02/17 07:25 Creatinine 0.94 mg/dL (0.52-1.04) 06/02/17 07:25 Est GFR (MDRD) Af Amer >60 (>60 ml/min/1.73 sqM) 06/02/17 07:25 Est GFR (MDRD) Non-Af 58 (>60 ml/min/1.73 sqM) 06/02/17 07:25 Glucose 139 mg/dL (74-99) H 06/02/17 07:25 POC Glucose (mg/dL) 199 mg/dL (75-99) H 06/02/17 11:55 POC Glu Telephone Order Dispatcher ID Denisse Sosa 06/02/17 11:[address] Glu mg/dL 163 mg/dL 05/22/17 06:02 Hemoglobin A1c 7.3 % (4.2-6.1) H 05/22/17 06:02 Calcium 8.9 mg/dL (8.4-10.2) 06/02/17 07:25 Phosphorus 2.6 mg/dL (2.5-4.5) 05/27/17 05:55 Magnesium 1.8 mg/dL (1.6-2.3) 05/27/17 05:55 Iron 43 ug/dL (37-170) 05/28/17 05:58 TIBC 243 ug/dL (265-497) L 05/28/17 05:58 % Saturation 17.7 % (20-50) L 05/28/17 05:58 Total Bilirubin 0.5 mg/dL (0.2-1.3) 06/02/17 07:25 AST 22 U/L (14-36) 06/02/17 07:25 ALT 47 U/L (9-52) 06/02/17 07:25 Alkaline Phosphatase 151 U/L (38-126) H 06/02/17 07:25 Total Creatine Kinase 635 U/L (30-135) H 05/22/17 11:31 CK-MB (CK-2) 18.8 ng/mL (0.0-2.4) H* 05/22/17 11:31 CK-MB (CK-2) Rel Index 3.0 05/22/17 11:31 Troponin I 5.610 ng/mL (0.000-0.034) H* 05/22/17 11:31 NT-Pro-B Natriuret Pep 13394 pg/mL 05/27/17 05:55 Total Protein 5.5 g/dL (6.3-8.2) L 06/02/17 07:25 Albumin 3.0 g/dL (3.5-5.0) L 06/02/17 07:25 Triglycerides 69 mg/dL (<150) 05/22/17 06:02 Cholesterol 110 mg/dL (<200) 05/22/17 06:02 LDL Cholesterol, Calc 49 mg/dL (0-99) 05/22/17 06:02 HDL Cholesterol 47 mg/dL (40-60) 05/22/17 06:02 Lipase 202 U/L (23-300) 05/22/17 00:10 Vitamin B12 347 pg/mL 05/28/17 05:58 Folate 10.1 ng/mL 05/28/17 05:58 Urine Color Yellow 05/22/17 04:15 Urine Appearance Cloudy (Clear) H 05/22/17 04:15 Urine pH 5.5 (5.0-8.0) 05/22/17 04:15 Ur Specific [place] 1.013 (1.001-1.035) 05/22/17 04:15 Urine Protein Trace (Negative) H 05/22/17 04:15 Urine Glucose (UA) Trace (Negative) H 05/22/17 04:15 Urine Ketones Trace (Negative) H 05/22/17 04:15 Urine Blood Negative (Negative) 05/22/17 04:15 Urine Nitrite Negative (Negative) 05/22/17 04:15 Urine Bilirubin Negative (Negative) 05/22/17 04:15 Urine Urobilinogen <2.0 mg/dL (<2.0) 05/22/17 04:15 Ur Leukocyte Esterase Large (Negative) H 05/22/17 04:15 Urine RBC 1 /hpf (0-5) 05/22/17 04:15 Urine WBC 180 /hpf (0-5) H 05/22/17 04:15 Urine WBC Clumps Occasional /hpf (None) H 05/22/17 04:15 Ur Squamous Epith Cells 5 /hpf (0-4) H 05/22/17 04:15 Urine Bacteria Rare /hpf (None) H 05/22/17 04:15 Hyaline Casts 2 /lpf (0-2) 05/22/17 04:15 Urine Mucus Rare /hpf (None) H 05/22/17 04:15 Microbiology 05/26/17 11:30 Leg - Left Gram Stain - Final 05/26/17 11:30 Leg - Left Wound Culture - Final Escherichia coli 05/22/17 04:15 Urine,Voided Urine Culture - Final Escherichia coli Assessment and Plan (1) Chest pain Status: Acute (2) Congestive heart failure with cardiomyopathy Status: Acute (3) Bilateral lower extremity edema Narrative/Plan: 77-year-old female presents to Hospital significant chest pain. At presentation there was evidence of a myocardial infarction and was seen by cardiology. Was not able to have a successful balloon angioplasty or stent placed. The patient's entry with maximal medical therapy and is improving. However she does have cardiomyopathy in his lower extremity edema with her chronic congestive heart failure. Left leg is much worse than the right. She relates that she's had no clot in the left leg but it often gives her more troubles in the right. She does occasionally wear some stockings. The left leg shows evidence of the cellulitis and the multiple small skin ulcerations from the edema in venous stasis. It is mildly tender. Local wound care applied with Silvadene and wrap. Stocking applied to the right lower extremity. To elevate her legs at rest as much as she possibly can to help the edema. She is receiving maximal medical therapy for her underlying ischemic cardiomyopathy. Both improved today She does have a mild cellulitic response occurring cefuroxime 500 mg every 12 hours will be utilized orally when she is transitioning from the current ceftriaxone. Wound culture and urine culture both have Escherichia coli susceptible to the cephalosporins. Expect her to transfer to rehab tomorrow where she can continue with the Silvadene wrap and cefuroxime until she improves in the next week. We'll ask if she can have a multivitamin She is evidence of an ecchymotic area on the right abdominal wall. She does have significant anticoagulation. Her daughter was concerned she had a fall but she does not recall a fall. It is likely just from bruising on a counter or similar surface given its location Arnica gel could be helpful with this bruising Will transfer to rehab today Status: Acute
== END 2017-06-02 15:15 | DRG 280 ==
LOC: EC 23:42 → 6SEL 23:45 → 5MS5E 05-30 21:06
PROVIDERS: ADMIT Internal Medicine; ATTEND Internal Medicine
PROC: B2121ZZ Fluoroscopy of Single Coronary Artery Bypass Graft using Low Osmolar Contrast (ICD-10-PCS; 2017-05-26)
PROC: B2181ZZ Fluoroscopy of Left Internal Mammary Bypass Graft using Low Osmolar Contrast (ICD-10-PCS; 2017-05-26)
PROC: B2151ZZ Fluoroscopy of Left Heart using Low Osmolar Contrast (ICD-10-PCS; 2017-05-26)
PROC: 4A023N7 Measurement of Cardiac Sampling and Pressure, Left Heart, Percutaneous Approach (ICD-10-PCS; principal; 2017-05-26 11:48)
PROC: B2111ZZ Fluoroscopy of Multiple Coronary Arteries using Low Osmolar Contrast (ICD-10-PCS; 2017-05-26 11:48)
DX: I21.4 Non-ST elevation (NSTEMI) myocardial infarction (principal); I50.23 Acute on chronic systolic (congestive) heart failure; N17.9 Acute kidney failure, unspecified; E44.0 Moderate protein-calorie malnutrition; E11.42 Type 2 diabetes mellitus with diabetic polyneuropathy; T82.898A Other specified complication of vascular prosthetic devices, implants and grafts, initial encounter; I48.0 Paroxysmal atrial fibrillation; E11.51 Type 2 diabetes mellitus with diabetic peripheral angiopathy without gangrene; E11.622 Type 2 diabetes mellitus with other skin ulcer; L03.116 Cellulitis of left lower limb; K57.32 Diverticulitis of large intestine without perforation or abscess without bleeding; N20.1 Calculus of ureter; N39.0 Urinary tract infection, site not specified; L97.929 Non-pressure chronic ulcer of unspecified part of left lower leg with unspecified severity; E11.628 Type 2 diabetes mellitus with other skin complications; E87.5 Hyperkalemia; E83.42 Hypomagnesemia; I25.5 Ischemic cardiomyopathy; I11.0 Hypertensive heart disease with heart failure; D50.9 Iron deficiency anemia, unspecified; T50.2X5A Adverse effect of carbonic-anhydrase inhibitors, benzothiadiazides and other diuretics, initial encounter; B96.20 Unspecified Escherichia coli [E. coli] as the cause of diseases classified elsewhere; I25.2 Old myocardial infarction; I25.10 Atherosclerotic heart disease of native coronary artery without angina pectoris; R74.0 Nonspecific elevation of levels of transaminase and lactic acid dehydrogenase [LDH]; N81.3 Complete uterovaginal prolapse; R42 Dizziness and giddiness; S30.1XXA Contusion of abdominal wall, initial encounter; K57.30 Diverticulosis of large intestine without perforation or abscess without bleeding; R26.9 Unspecified abnormalities of gait and mobility; D72.829 Elevated white blood cell count, unspecified; E87.70 Fluid overload, unspecified; R11.2 Nausea with vomiting, unspecified; I87.8 Other specified disorders of veins; R50.9 Fever, unspecified; E03.9 Hypothyroidism, unspecified; E78.2 Mixed hyperlipidemia; K59.00 Constipation, unspecified; R53.83 Other fatigue; Z95.5 Presence of coronary angioplasty implant and graft; Z79.01 Long term (current) use of anticoagulants; Z79.899 Other long term (current) drug therapy; Z82.3 Family history of stroke; Z83.3 Family history of diabetes mellitus; Z88.0 Allergy status to penicillin; Z79.82 Long term (current) use of aspirin; Z79.84 Long term (current) use of oral hypoglycemic drugs; Z95.810 Presence of automatic (implantable) cardiac defibrillator; Z68.28 Body mass index [BMI] 28.0-28.9, adult; Z87.440 Personal history of urinary (tract) infections; Z86.72 Personal history of thrombophlebitis; Z90.49 Acquired absence of other specified parts of digestive tract; Z71.3 Dietary counseling and surveillance; Z53.8 Procedure and treatment not carried out for other reasons; Z80.3 Family history of malignant neoplasm of breast; Z80.49 Family history of malignant neoplasm of other genital organs; Z86.79 Personal history of other diseases of the circulatory system; Z88.4 Allergy status to anesthetic agent; Z88.2 Allergy status to sulfonamides; Z86.14 Personal history of Methicillin resistant Staphylococcus aureus infection; Z79.891 Long term (current) use of opiate analgesic; Z95.1 Presence of aortocoronary bypass graft; Z16.23 Resistance to quinolones and fluoroquinolones; W19.XXXA Unspecified fall, initial encounter; Y83.2 Surgical operation with anastomosis, bypass or graft as the cause of abnormal reaction of the patient, or of later complication, without mention of misadventure at the time of the procedure; Y93.9 Activity, unspecified; Y92.009 Unspecified place in unspecified non-institutional (private) residence as the place of occurrence of the external cause
CPT/HCPCS: 36415; 71010; 71020; 74176; 80053; 80061; 81001; 82550; 82553; 82607; 82746; 83036; 83540; 83550; 83690; 83735; 83880; 84100; 84484; 85025; 85347; 85379; 85610; 85730; 87070; 87077; 87086; 87186; 87205; 93005; 93306; 93458; 94760; 96374; 99285

== ENCOUNTER 2017-09-03 20:29 | Observation (INO) | payer MEDICARE, OTHER ==
--- NOTE | 2017-09-03 21:01 | ED ---
General Adult HPI - General Chief complaint: Arrhythmia/Palpitations Stated complaint: Heart Palpitations Time Seen by Provider: 09/03/17 20:34 Source: patient, EMS, RN notes reviewed, old records reviewed Mode of arrival: EMS Limitations: no limitations - History of Present Illness Initial comments: Patient is a pleasant 77-year-old female presenting to the emergency Department with palpitations. Onset was around 7 PM. Patient states she felt her heart going fast. Patient states her heart rate was reported to her as 114. Patient denies pain. No dyspnea. Patient is currently symptom-free. - Related Data Home Medications Medication Instructions Recorded Confirmed Allopurinol [Zyloprim] 300 mg PO DAILY 04/18/17 08/11/17 Aspirin [Adult Low Dose Aspirin EC] 81 mg PO DAILY 04/18/17 08/11/17 Furosemide [Lasix] 40 mg PO DAILY 04/18/17 08/11/17 Isosorbide Mononitrate ER [Imdur] 60 mg PO DAILY 04/18/17 08/11/17 Levothyroxine Sodium 25 mcg PO DAILY 04/18/17 08/11/17 Metoprolol Tartrate [Lopressor] 50 mg PO BID 04/18/17 08/11/17 Nitroglycerin Sl Tabs [Nitrostat] 0.4 mg SUBLINGUAL Q5M PRN 04/18/17 08/11/17 Magnesium Oxide [Mag-Ox] 400 mg PO BID 05/22/17 08/11/17 Cholecalciferol [Vitamin D3] 1,000 unit PO DAILY 08/11/17 08/11/17 Esomeprazole Magnesium [NexIUM] 40 mg PO DAILY 08/11/17 08/11/17 Ferrous Sulfate [Feosol] 325 mg PO MOWEFR 08/11/17 08/11/17 Insulin Lispro Protamin/Lispro 10 unit SQ AC-BID 08/11/17 08/11/17 [humaLOG Mix 75-25 Kwikpen] Meclizine [Antivert] 25 mg PO TID PRN 08/11/17 08/11/17 Sacubitril/Valsartan [Entresto 24 1 tab PO DAILY 08/11/17 08/11/17 mg-26 mg Tablet] Spironolactone [Aldactone] 25 mg PO BID 08/11/17 08/11/17 traZODone HCL 50 mg PO HS 08/11/17 08/11/17 Previous Rx's Medication Instructions Recorded Collagenase [Santyl] 1 applic TOPICAL DAILY applic 08/22/17 Docusate [Colace] 100 mg PO BID cap 08/22/17 Hydrocodone/Acetaminophen [[place] 1 tab PO Q6H PRN #40 tablet 08/22/17 10-325] Polyethylene Glycol 3350 [Miralax] 17 gm PO HS powd.pack 08/22/17 Pregabalin [Lyrica] 75 mg PO HS #30 cap 08/22/17 Allergies Allergy/AdvReac Type Severity Reaction Status Date / Time Penicillins Allergy Rash/Hives Verified 08/11/17 20:08 propofol Allergy Unknown Verified 08/11/17 20:08 sulfamethoxazole AdvReac Abdominal Verified 08/11/17 20:08 [From Bactrim] Pain trimethoprim [From Bactrim] AdvReac Abdominal Verified 08/11/17 20:08 Pain Review of Systems ROS Statement: Those systems with pertinent positive or pertinent negative responses have been documented in the HPI. ROS Other: All systems not noted in ROS Statement are negative. Constitutional: Denies: fever Eyes: Denies: eye pain ENT: Denies: ear pain Respiratory: Denies: cough Cardiovascular: Reports: palpitations. Denies: chest pain Endocrine: Denies: fatigue Gastrointestinal: Denies: abdominal pain Genitourinary: Denies: dysuria Musculoskeletal: Denies: back pain Skin: Denies: rash Neurological: Denies: headache, weakness Past Medical History Past Medical History: Atrial Fibrillation, Heart Failure, Diabetes Mellitus, Hypertension, Myocardial Infarction ([place]) Additional Past Medical History / Comment(s): hypothyrodism, Kidney failure, neuropathy, Last Myocardial Infarction Date:: 1994 History of Any Multi-Drug Resistant Organisms: MRSA, Other MDRO Date of last positivie culture/infection: 04/19/11-MRSA MDRO Source:: MDRO-Right Leg; MRSA-Unknown Past Surgical History: Cholecystectomy, Coronary Bypass/CABG, Heart Catheterization With Stent, Pacemaker, Tonsillectomy Additional Past Surgical History / Comment(s): Defibrillator, pacemaker, breast reduction, varicous veins, wound on right leg Past Anesthesia/Blood Transfusion Reactions: No Reported Reaction Additional Past Anesthesia/Blood Transfusion Reaction / Comment(s): allergic to propofol Date of Last Stent Placement:: 1994 Type of Cardiac Device: Permanent Pacemaker Device Placement Date:: 2011 Past Psychological History: No Psychological Hx Reported Smoking Status: Never smoker Past Alcohol Use History: None Reported Past Drug Use History: None Reported - Past Family History Mother Family Medical History: CVA/TIA Additional Family Medical History / Comment(s): at age 43 of a stroke Father Family Medical History: Diabetes Mellitus Additional Family Medical History / Comment(s): age 81 General Exam Limitations: no limitations General appearance: alert, in no apparent distress Head exam: Present: normocephalic Eye exam: Present: normal appearance, PERRL, EOMI ENT exam: Present: normal oropharynx Respiratory exam: Present: normal lung sounds bilaterally Cardiovascular Exam: Present: regular rate, normal rhythm GI/Abdominal exam: Present: soft. Absent: tenderness Extremities exam: Present: normal inspection Neurological exam: Present: alert Psychiatric exam: Present: normal affect, normal mood Skin exam: Present: other (Healing ecchymosis left forehead.) Course Vital Signs 09/03/17 20:31 Temperature 97.5 F L Pulse Rate 60 Respiratory 16 Rate Blood Pressure 133/85 O2 Sat by Pulse 94 L Oximetry EKG Findings - EKG Comments: EKG Findings:: Sinus rhythm at 66. First-degree AV block with a [place] of 226. QRS 124. QT 44. QTC 507. Right axis. Septal Q waves. No acute ST change. Medical Decision Making - Medical Decision Making Patient reevaluated and resting comfortably in bed. Family is present and does also state the patient earlier complained of chest discomfort. Patient and family are updated on results and plan. Case was discussed in detail with Dr. Cesar, who will admit for Dr. Harrington with cardiology consult. - Lab Data Result diagrams: 09/03/17 21:04 09/03/17 21:04 Lab Results 09/03/17 09/03/17 09/03/17 Range/Units 21:04 21:04 21:04 WBC 5.8 (3.8-10.6) k/uL RBC 3.42 L (3.80-5.40) m/uL Hgb 9.9 L (11.4-16.0) gm/dL Hct 32.6 L (34.0-46.0) % MCV 95.4 (80.0-100.0) fL MCH 28.8 (25.0-35.0) pg MCHC 30.2 L (31.0-37.0) g/dL RDW 18.0 H (11.5-15.5) % Plt Count 177 (150-450) k/uL Neutrophils % 71 % Lymphocytes % 18 % Monocytes % 7 % Eosinophils % 3 % Basophils % 1 % Neutrophils # 4.1 (1.3-7.7) k/uL Lymphocytes # 1.0 (1.0-4.8) k/uL Monocytes # 0.4 (0-1.0) k/uL Eosinophils # 0.2 (0-0.7) k/uL Basophils # 0.0 (0-0.2) k/uL Hypochromasia Marked Anisocytosis Slight Macrocytosis Slight PT (9.0-12.0) sec INR (<1.2) APTT (22.0-30.0) sec Sodium 141 (137-145) mmol/L Potassium 3.8 (3.5-5.1) mmol/L Chloride 99 (98-107) mmol/L Carbon Dioxide 32 H (22-30) mmol/L Anion Gap 10 mmol/L BUN 19 H (7-17) mg/dL Creatinine 1.00 (0.52-1.04) mg/dL Est GFR (MDRD) Af Amer >60 (>60 ml/min/1.73 sqM) Est GFR (MDRD) Non-Af 54 (>60 ml/min/1.73 sqM) Glucose 251 H (74-99) mg/dL Calcium 9.6 (8.4-10.2) mg/dL Magnesium 1.4 L (1.6-2.3) mg/dL Total Bilirubin 0.4 (0.2-1.3) mg/dL AST 18 (14-36) U/L ALT 37 (9-52) U/L Alkaline Phosphatase 153 H (38-126) U/L Total Creatine Kinase <20 L (30-135) U/L CK-MB (CK-2) 0.4 (0.0-2.4) ng/mL CK-MB (CK-2) Rel Index Troponin I 0.015 (0.000-0.034) ng/mL Total Protein 5.7 L (6.3-8.2) g/dL Albumin 3.1 L (3.5-5.0) g/dL TSH 1.600 (0.465-4.680) mIU/L Free T4 1.80 (0.78-2.19) ng/dL Free T3 pg/mL 3.4 (2.8-5.3) pg/ml 09/03/ Range/Units 21:04 WBC (3.8-10.6) k/uL RBC (3.80-5.40) m/uL Hgb (11.4-16.0) gm/dL Hct (34.0-46.0) % MCV (80.0-100.0) fL MCH (25.0-35.0) pg MCHC (31.0-37.0) g/dL RDW (11.5-15.5) % Plt Count (150-450) k/uL Neutrophils % % Lymphocytes % % Monocytes % % Eosinophils % % Basophils % % Neutrophils # (1.3-7.7) k/uL Lymphocytes # (1.0-4.8) k/uL Monocytes # (0-1.0) k/uL Eosinophils # (0-0.7) k/uL Basophils # (0-0.2) k/uL Hypochromasia Anisocytosis Macrocytosis PT 11.4 (9.0-12.0) sec INR 1.2 H (<1.2) APTT 23.1 (22.0-30.0) sec Sodium (137-145) mmol/L Potassium (3.5-5.1) mmol/L Chloride (98-107) mmol/L Carbon Dioxide (22-30) mmol/L Anion Gap mmol/L BUN (7-17) mg/dL Creatinine (0.52-1.04) mg/dL Est GFR (MDRD) Af Amer (>60 ml/min/1.73 sqM) Est GFR (MDRD) Non-Af (>60 ml/min/1.73 sqM) Glucose (74-99) mg/dL Calcium (8.4-10.2) mg/dL Magnesium (1.6-2.3) mg/dL Total Bilirubin (0.2-1.3) mg/dL AST (14-36) U/L ALT (9-52) U/L Alkaline Phosphatase (38-126) U/L Total Creatine Kinase (30-135) U/L CK-MB (CK-2) (0.0-2.4) ng/mL CK-MB (CK-2) Rel Index Troponin I (0.000-0.034) ng/mL Total Protein (6.3-8.2) g/dL Albumin (3.5-5.0) g/dL TSH (0.465-4.680) mIU/L Free T4 (0.78-2.19) ng/dL Free T3 pg/mL (2.8-5.3) pg/ml - Radiology Data Radiology results: image reviewed (Chest x-ray without acute abnormality.) Disposition Clinical Impression: Chest pain, Dysrhythmia Disposition: ADMITTED IP TO THIS HOSP Referrals: Aneta Berger MD [Primary Care Provider] - 1-2 days Decision Time: 22:35
[2017-09-03 21:18] LABS: Anisocytosis Slight; Basophils % (A) 1 %; CH 28.7; CHCM 30.2; Eosinophils # (A) 0.2 k/uL (0-0.7); Eosinophils % (A) 3 %; HCT 32.6 % (34.0-46.0); HDW 2.94; HGB 9.9 gm/dL (11.4-16.0); Hypochromasia Marked; Luc # (Auto) 0.05; Luc % (Auto) 1; Lymphocytes % (A) 18 %; MCH 28.8 pg (25.0-35.0); MCHC 30.2 g/dL (31.0-37.0); MCV 95.4 fL (80.0-100.0); Macrocytosis Slight; Mean Platelet Volume 7.6; Monocytes # (A) 0.4 k/uL (0-1.0); Monocytes % (A) 7 %; Neutrophils # (A) 4.1 k/uL (1.3-7.7); Neutrophils % (A) 71 %; RBC 3.42 m/uL (3.80-5.40); WBC 5.8 k/uL (3.8-10.6); WBC (Perox) 6.16
--- NOTE | 2017-09-03 21:27 | XR ---
EXAMINATION: XR chest 2V DATE AND TIME: 09/03/2017 9:15 PM ORDERING PROVIDER: Sixto Hernandez DO CLINICAL INDICATION: dysrhythmia TECHNIQUE: PA and lateral COMPARISON: 08/11/2017 DESCRIPTION: Cardiac pacemaker, sternal sutures, and mediastinal clips. The lungs are clear. The pleu ral space is positive for trace pleural effusions posteriorly. The cardiomediastinal silhouette shows moderate plus enlargement of the cardiac silhouette, stable. The skeletal structures are intact without focal findings. The soft tissues are unremarkable. IMPRESSION: Trace pleural effusions.
[2017-09-03 21:29] LABS: INR 1.2 (<1.2); Partial Thromboplastin Time 23.1 sec (22.0-30.0); Prothrombin Time 11.4 sec (9.0-12.0)
[2017-09-03 21:33] LABS: ALT 37 U/L (9-52); AST 18 U/L (14-36); Alkaline Phosphatase 153 U/L (38-126); Anion Gap 10 mmol/L; Blood Urea Nitrogen 19 mg/dL (7-17); Calcium 9.6 mg/dL (8.4-10.2); Carbon Dioxide 32 mmol/L (22-30); Chloride 99 mmol/L (98-107); Glucose 251 mg/dL (74-99); Magnesium 1.4 mg/dL (1.6-2.3); Non-African American GFR(MDRD) 54 (>60 ml/min/1.73 sqM); Potassium 3.8 mmol/L (3.5-5.1); Sodium 141 mmol/L (137-145); Total Bilirubin 0.4 mg/dL (0.2-1.3); Total Protein 5.7 g/dL (6.3-8.2)
[2017-09-03 21:34] LABS: Creatine Kinase <20 U/L (30-135)
[2017-09-03 21:46] LABS: Creatine Kinase MB 0.4 ng/mL (0.0-2.4); Troponin I 0.015 ng/mL (0.000-0.034)
[2017-09-03] MEDS ORDERED: MAGNESIUM OXIDE 400 MG TAB PO STA (22:02)
[2017-09-03] MEDS ORDERED: NITROGLYCERIN SL TABS 0.4 MG TAB SUBLINGUAL PRN (22:35)
[2017-09-03 23:07] LABS: Glucose,Whole Blood 232 mg/dL (75-99)
[2017-09-04] MEDS: NITROGLYCERIN OINT 1 INCH/GM PACKET TOPICAL SCH ×5 (00:29→23:41)
[2017-09-04 04:28] LABS: Magnesium 1.5 mg/dL (1.6-2.3)
[2017-09-04 04:39] LABS: Creatine Kinase <20 U/L (30-135)
[2017-09-04 04:51] LABS: Creatine Kinase MB 0.4 ng/mL (0.0-2.4); Troponin I 0.016 ng/mL (0.000-0.034)
[2017-09-04 05:46] LABS: Glucose,Whole Blood 230 mg/dL (75-99)
[2017-09-04] MEDS: INSULIN ASPART 100 UNIT/ML 1 ML 10 ML VIAL SQ SCH ×4 (06:28→21:37)
[2017-09-04] MEDS ORDERED: MECLIZINE 25 MG TAB PO PRN (07:05)
[2017-09-04] MEDS ORDERED: Magnesium Replacement Protocol 1 EACH MISC MISCELLANE PRN (07:20)
[2017-09-04] MEDS ORDERED: ASPIRIN 325 MG TAB PO SCH (09:00)
--- NOTE | 2017-09-04 09:16 | P.CRDCN ---
History of Present Illness Consult date: 09/04/17 Reason for Consult (text): Palpitations History of present illness: 77-year-old lady with history of coronary artery disease status post CABG hypertension dyslipidemia paroxysmal atrial fibrillation ischemic cardiomyopathy status post AICD is admitted from many [facility] following an episode of palpitations. Patient's heart rate apparently was around 114 bpm she did not have chest pain was not short of breath and she is readmitted. Patient was in the hospital a few weeks ago when she had a syncopal event. She denies chest pain is in his syncope. There is no focal neurological deficit. Since admission she has done well and has remained in stable rhythm. Cardiac enzymes have been negative. I reviewed her old records including echocardiograms EKGs cardiac catheterization and angioplasty. Most recently she had an unsuccessful angioplasty of a diagonal branch in May 2017 Review of Systems Constitutional: Denies chills. Denies fever. Eyes: Denies blurred vision. Denies pain. Ears, nose, mouth and throat: Denies headache. Denies sore throat. Cardiovascular: Denies chest pain. Denies shortness of breath. Has palpitations Respiratory: Denies cough. Gastrointestinal: Denies abdominal pain. Denies diarrhea. Denies nausea. Denies vomiting. Musculoskeletal: Denies myalgias. Integumentary: Denies pruritus. Denies rash. Neurological: Denies numbness. Denies weakness. Psychiatric: Denies anxiety. Denies depression. Endocrine: Denies fatigue. Denies weight change. Genitourinary: Denies burning, hematuria, frequency of urination. Hematological: No anemia or excess bleeding. Past Medical History Past Medical History: Atrial Fibrillation, Heart Failure, Diabetes Mellitus, Hypertension, Myocardial Infarction ([place]), Pulmonary Embolus ([place]) Additional Past Medical History / Comment(s): hypothyrodism, Kidney failure, neuropathy, wounds to bilateral legs- goes to wound clinic Last Myocardial Infarction Date:: 1994 History of Any Multi-Drug Resistant Organisms: MRSA, Other MDRO Date of last positivie culture/infection: 04/19/11-MRSA MDRO Source:: MDRO-Right Leg; MRSA-Unknown Past Surgical History: Cholecystectomy, Coronary Bypass/CABG, Heart Catheterization With Stent, Pacemaker, Tonsillectomy Additional Past Surgical History / Comment(s): Defibrillator, pacemaker, breast reduction, varicous veins, wound on right leg Past Anesthesia/Blood Transfusion Reactions: No Reported Reaction Additional Past Anesthesia/Blood Transfusion Reaction / Comment(s): allergic to propofol Date of Last Stent Placement:: 1994 Type of Cardiac Device: Permanent Pacemaker Device Placement Date:: 2011 Past Psychological History: No Psychological Hx Reported Additional Psychological History / Comment(s): for 15 years. retired. Lifelong nonsmoker. No experience. No international travel. Has a pet bird, parakeet at home, grandchildren are caring for it. No change in the home environment Smoking Status: Never smoker Past Alcohol Use History: None Reported Past Drug Use History: None Reported - Past Family History Mother Family Medical History: CVA/TIA Additional Family Medical History / Comment(s): at age 43 of a stroke Father Family Medical History: Diabetes Mellitus Additional Family Medical History / Comment(s): age 81 Medications and Allergies Home Medications Medication Instructions Recorded Confirmed Type Allopurinol [Zyloprim] 300 mg PO DAILY 04/18/17 09/04/17 History Aspirin [Adult Low Dose Aspirin EC] 81 mg PO DAILY 04/18/17 09/04/17 History Furosemide [Lasix] 40 mg PO DAILY 04/18/17 09/04/17 History Isosorbide Mononitrate ER [Imdur] 60 mg PO DAILY 04/18/17 09/04/17 History Levothyroxine Sodium 25 mcg PO DAILY 04/18/17 09/04/17 History Metoprolol Tartrate [Lopressor] 50 mg PO BID 04/18/17 09/04/17 History Nitroglycerin Sl Tabs [Nitrostat] 0.4 mg SUBLINGUAL Q5M PRN 04/18/17 09/04/17 History Magnesium Oxide [Mag-Ox] 400 mg PO DAILY 05/22/17 09/04/17 History Cholecalciferol [Vitamin D3] 1,000 unit PO DAILY 08/11/17 09/04/17 History Ferrous Sulfate [Feosol] 325 mg PO MOWEFR 08/11/17 09/04/17 History Insulin Lispro Protamin/Lispro 10 unit SQ HS 08/11/17 09/04/17 History [humaLOG Mix 75-25 Kwikpen] Meclizine [Antivert] 25 mg PO Q8H PRN 08/11/17 09/04/17 History Sacubitril/Valsartan [Entresto 24 1 tab PO DAILY 08/11/17 09/04/17 History mg-26 mg Tablet] Spironolactone [Aldactone] 25 mg PO BID 08/11/17 09/04/17 History traZODone HCL 50 mg PO HS 08/11/17 09/04/17 History Docusate [Colace] 100 mg PO BID cap 08/22/17 09/04/17 Rx Hydrocodone/Acetaminophen [[place] 1 tab PO Q6H PRN #40 tablet 08/22/17 09/04/17 Rx 10-325] Polyethylene Glycol 3350 [Miralax] 17 gm PO HS powd.pack 08/22/17 09/04/17 Rx Pregabalin [Lyrica] 75 mg PO HS #30 cap 08/22/17 09/04/17 Rx Calcium Ag Silver 1 applic TOPICAL WESA 09/04/17 09/04/17 History Hydrofera Blue 1 applic TOPICAL MOWEFR 09/04/17 09/04/17 History Insulin NPL/Insulin Lispro 20 unit SQ DAILY 09/04/17 09/04/17 History [humaLOG MIX 75-25 VIAL] Pantoprazole Sodium [Protonix] 40 mg PO DAILY 09/04/17 09/04/17 History Allergies Allergy/AdvReac Type Severity Reaction Status Date / Time Penicillins Allergy Rash/Hives Verified 09/04/17 08:55 propofol Allergy Unknown Verified 09/04/17 08:55 sulfamethoxazole AdvReac Abdominal Verified 09/04/17 08:55 [From Bactrim] Pain trimethoprim [From Bactrim] AdvReac Abdominal Verified 09/04/17 08:55 Pain Physical Exam Vitals: Vital Signs Temp Pulse Pulse Resp BP BP Pulse Ox 09/04/17 08:00 59 L 16 135/63 100 09/04/17 03:30 96.9 F L 63 18 141/62 100 09/03/17 23:20 96.0 F L 57 L 18 138/62 99 09/03/17 22:34 66 16 130/78 98 09/03/17 20:31 97.5 F L 60 16 133/85 94 L Intake and Output 09/03/17 09/04/17 09/04/17 22:59 06:59 14:59 Intake Total 90 Balance 90 Intake: Oral 90 Other: Voiding Method Diaper Diaper # Voids 1 Weight 77.111 kg 77 kg 77 kg Patient Weight 09/05/17 06:59 Weight 77 kg General: The patient is awake and alert, in no distress, and does not appear acutely ill. Skin: Skin is warm and dry and no rashes or lesions are noted. Eye: Pupils are equal, round and reactive to light, extra-ocular movements are intact; there is normal conjunctiva bilaterally. Ears, nose, mouth and throat: There are moist mucous membranes and no oral lesions. Neck: The neck is supple, there is no tenderness or JVD. Cardiovascular: There is a regular rate and rhythm. Systolic murmur at the apex Respiratory: Lungs are clear to auscultation, respirations are non-labored, breath sounds are equal. Gastrointestinal: Soft, non-distended, non-tender abdomen without masses or organomegaly noted. There is no rebound or guarding present. Bowel sounds are unremarkable. Back: There is no tenderness to palpation in the midline. There is no obvious deformity. Musculoskeletal: Normal ROM, no tenderness, There is no pedal edema. There is no calf tenderness or swelling. Extremities: No edema. Vascular: Femoral pulse is normal. Posterior tibial pulses are normal .Dorsalis pedis is palpable. Neurological: CN II-XII intact. There are no obvious motor or sensory deficits. Speech is normal. Psychiatric: Cooperative, appropriate mood & affect, normal judgment. Results 09/03/17 21:04 09/03/17 21:04 Cardiac Enzymes 09/03/17 09/03/17 09/04/17 Range/Units 21:04 21:04 03:39 AST 18 (14-36) U/L CK-MB (CK-2) 0.4 0.4 (0.0-2.4) ng/mL Troponin I 0.015 0.016 (0.000-0.034) ng/mL Coagulation 09/03/17 Range/Units 21:04 PT 11.4 (9.0-12.0) sec APTT 23.1 (22.0-30.0) sec Lipids 09/04/17 Range/Units 03:39 Triglycerides 68 (<150) mg/dL Cholesterol 120 (<200) mg/dL HDL Cholesterol 36 L (40-60) mg/dL CBC 09/03/17 Range/Units 21:04 WBC 5.8 (3.8-10.6) k/uL RBC 3.42 L (3.80-5.40) m/uL Hgb 9.9 L (11.4-16.0) gm/dL Hct 32.6 L (34.0-46.0) % Plt Count 177 (150-450) k/uL Comprehensive Metabolic Panel 09/03/17 Range/Units 21:04 Sodium 141 (137-145) mmol/L Potassium 3.8 (3.5-5.1) mmol/L Chloride 99 (98-107) mmol/L Carbon Dioxide 32 H (22-30) mmol/L BUN 19 H (7-17) mg/dL Creatinine 1.00 (0.52-1.04) mg/dL Glucose 251 H (74-99) mg/dL Calcium 9.6 (8.4-10.2) mg/dL AST 18 (14-36) U/L ALT 37 (9-52) U/L Alkaline Phosphatase 153 H (38-126) U/L Total Protein 5.7 L (6.3-8.2) g/dL Albumin 3.1 L (3.5-5.0) g/dL Current Medications Generic Name Dose Route Start Last Admin Trade Name Freq PRN Reason Stop Dose Admin Hydrocodone Bitart/Acetaminophen 1 each 09/04/17 07:05 [place] 10 PO Q6H PRN Pain Allopurinol 300 mg 09/04/17 09:00 Zyloprim PO DAILY ON LICENSE OF [facility] Aspirin 81 mg 09/04/17 09:00 Aspirin PO DAILY ON LICENSE OF [facility] Cholecalciferol 1,000 unit 09/04/17 12:00 Vitamin D3 PO 1200 ON LICENSE OF [facility] Collagenase 1 applic 09/04/17 09:00 Santyl TOPICAL DAILY ON LICENSE OF [facility] Docusate Sodium 100 mg 09/04/17 09:00 Colace PO BID ON LICENSE OF [facility] Ferrous Sulfate 325 mg 09/05/17 12:00 Feosol PO MoWeFr@1200 ON LICENSE OF [facility] Furosemide 40 mg 09/04/17 09:00 Lasix PO DAILY ON LICENSE OF [facility] Insulin Aspart 0 unit 09/04/17 07:30 09/04/17 06:28 Novolog SQ 3 unit ACHS ON LICENSE OF [facility] Administration Protocol Isosorbide Mononitrate 60 mg 09/04/17 09:00 Imdur PO DAILY ON LICENSE OF [facility] Levothyroxine Sodium 25 mcg 09/04/17 07:30 [place] 0630 CLAUDIO Magnesium Oxide 400 mg 09/04/17 09:00 Mag-Ox PO BID CLAUDIO Meclizine HCl 25 mg 09/04/17 07:05 Antivert PO TID PRN Nausea Metoprolol Tartrate 50 mg 09/04/17 09:00 Lopressor PO BID CLAUDIO Miscellaneous Information 1 each 09/04/17 07:20 Magnesium Per Protocol MISCELLANE DAILY PRN Per Protocol Protocol Nitroglycerin 1 inch 09/04/17 00:00 09/04/17 06:28 Nitro-Bid Oint TOPICAL 1 inch Q6HR CLAUDIO Administration Nitroglycerin 0.4 mg 09/03/17 22:35 Nitrostat SUBLINGUAL Q5M PRN Chest Pain Pantoprazole Sodium 40 mg 09/04/17 07:30 Protonix PO AC-BRKFST CLAUDIO Polyethylene Glycol 17 gm 09/04/17 21:00 Miralax PO HS CLAUDIO Pregabalin 75 mg 09/04/17 21:00 Lyrica PO HS CLAUDIO Sacubitril/Valsartan 1 each 09/04/17 09:00 Entresto 24 Mg-26 Mg Tablet PO BID ON LICENSE OF [facility] Spironolactone 25 mg 09/04/17 09:00 Aldactone PO BID ON LICENSE OF [facility] Trazodone HCl 50 mg 09/04/17 21:00 Desyrel PO HS CLAUDIO Intake and Output 09/03/17 09/04/17 09/04/17 22:59 06:59 14:59 Intake Total 90 Balance 90 Intake: Oral 90 Other: Voiding Method Diaper Diaper # Voids 1 Weight 77.111 kg 77 kg 77 kg Patient Weight 09/05/17 06:59 Weight 77 kg 09/03/17 21:04 09/03/17 21:04 EKG Interpretations (text) EKG shows sinus bradycardia with poor R-wave progression and first-degree AV block Assessment and Plan Assessment: Palpitations Ischemic cardiomyopathy status post AICD CAD status post CABG Paroxysmal atrial fibrillation Patient is doing well myocardial infarction is ruled out did not have documented tachycardia or bradycardia arrhythmias patient may be transferred back to the snf with outpatient follow-up through our office. If necessary we may get the AICD checked.
[2017-09-04] MEDS: LEVOTHYROXINE 25 MCG TAB PO SCH (09:24)
[2017-09-04] MEDS: COLLAGENASE 250 UNIT/GM OINTMENT 30 GM TUBE TOPICAL SCH (09:24)
[2017-09-04] MEDS: ISOSORBIDE MONONITRATE ER 60 MG TAB.ER.24H PO SCH (09:32)
[2017-09-04] MEDS: DOCUSATE 100 MG CAP PO SCH ×3 (09:32→21:37)
[2017-09-04] MEDS: FUROSEMIDE 40 MG TAB PO SCH (09:32)
[2017-09-04] MEDS: ALLOPURINOL 300 MG TAB PO SCH (09:32)
[2017-09-04] MEDS: ASPIRIN 81 MG PO SCH (09:32)
[2017-09-04] MEDS: PANTOPRAZOLE 40 MG TABLET PO SCH (09:32)
[2017-09-04] MEDS: MAGNESIUM OXIDE 400 MG TAB PO SCH ×2 (09:32→21:38)
[2017-09-04] MEDS: SPIRONOLACTONE 25 MG TAB PO SCH ×2 (09:33→21:38)
[2017-09-04] MEDS: METOPROLOL TARTRATE 50 MG TAB PO SCH ×2 (09:33→21:38)
[2017-09-04] MEDS: SACUBITRIL/VALSARTAN 24 MG-26 MG TABLET PO SCH ×2 (09:33→21:38)
[2017-09-04 10:04] LABS: Creatine Kinase <20 U/L (30-135)
[2017-09-04 10:17] LABS: Creatine Kinase MB 0.5 ng/mL (0.0-2.4); Troponin I 0.015 ng/mL (0.000-0.034)
[2017-09-04 11:54] LABS: Glucose,Whole Blood 242 mg/dL (75-99)
[2017-09-04] MEDS: CHOLECALCIFEROL 1,000 UNIT TAB PO SCH (12:09)
--- NOTE | 2017-09-04 13:10 | P.HPIM ---
History of Present Illness H&P Date: 09/04/17 Chief Complaint: Palpitation Shi Cam is a 77-year-old female well known to my practice who was in rehab at [facility] when she started having episodes of palpitation, she was told that her heart rate was 114 she states that she was also having "pain at the back of her heart", when asked if she was having chest pain she stated no , she denies any shortness of breath no cough no dizziness no fever or chills no nausea or vomiting no abdominal pain and no urinary symptoms. Patient has a known history of coronary artery disease she has a previous history of coronary artery bypass graft surgery she has a known history of ischemic cardiomyopathy with previous AICD placement, she had non-ST segment elevation myocardial infarction 3 months ago she underwent cardiac catheterization with Dr. Wall on 05/21/2017 she was found to have significant stenosis in the diagonal branch through the saphenous vein graft attempted angioplasty was unsuccessful. Patient has paroxysmal atrial fibrillation she is not on any anticoagulation at this time due to severe instability with her gait she had a recent fall with significant head trauma she is still has a large bruise on her left frontal area. Past Medical History Past Medical History: Atrial Fibrillation, Heart Failure, Diabetes Mellitus, Hypertension, Myocardial Infarction ([place]), Pulmonary Embolus ([place]) Additional Past Medical History / Comment(s): hypothyrodism, Kidney failure, neuropathy, wounds to bilateral legs- goes to wound clinic Last Myocardial Infarction Date:: 1994 History of Any Multi-Drug Resistant Organisms: MRSA, Other MDRO Date of last positivie culture/infection: 04/19/11-MRSA MDRO Source:: MDRO-Right Leg; MRSA-Unknown Past Surgical History: Cholecystectomy, Coronary Bypass/CABG, Heart Catheterization With Stent, Pacemaker, Tonsillectomy Additional Past Surgical History / Comment(s): Defibrillator, pacemaker, breast reduction, varicous veins, wound on right leg Past Anesthesia/Blood Transfusion Reactions: No Reported Reaction Additional Past Anesthesia/Blood Transfusion Reaction / Comment(s): allergic to propofol Date of Last Stent Placement:: 1994 Type of Cardiac Device: Permanent Pacemaker Device Placement Date:: 2011 Past Psychological History: No Psychological Hx Reported Additional Psychological History / Comment(s): for 15 years. retired. Lifelong nonsmoker. No experience. No international travel. Has a pet bird, parakeet at home, grandchildren are caring for it. No change in the home environment Smoking Status: Never smoker Past Alcohol Use History: None Reported Past Drug Use History: None Reported - Past Family History Mother Family Medical History: CVA/TIA Additional Family Medical History / Comment(s): at age 43 of a stroke Father Family Medical History: Diabetes Mellitus Additional Family Medical History / Comment(s): age 81 Medications and Allergies Home Medications Medication Instructions Recorded Confirmed Type Allopurinol [Zyloprim] 300 mg PO DAILY 04/18/17 09/04/17 History Aspirin [Adult Low Dose Aspirin EC] 81 mg PO DAILY 04/18/17 09/04/17 History Furosemide [Lasix] 40 mg PO DAILY 04/18/17 09/04/17 History Isosorbide Mononitrate ER [Imdur] 60 mg PO DAILY 04/18/17 09/04/17 History Levothyroxine Sodium 25 mcg PO DAILY 04/18/17 09/04/17 History Metoprolol Tartrate [Lopressor] 50 mg PO BID 04/18/17 09/04/17 History Nitroglycerin Sl Tabs [Nitrostat] 0.4 mg SUBLINGUAL Q5M PRN 04/18/17 09/04/17 History Magnesium Oxide [Mag-Ox] 400 mg PO DAILY 05/22/17 09/04/17 History Cholecalciferol [Vitamin D3] 1,000 unit PO DAILY 08/11/17 09/04/17 History Ferrous Sulfate [Feosol] 325 mg PO MOWEFR 08/11/17 09/04/17 History Insulin Lispro Protamin/Lispro 10 unit SQ HS 08/11/17 09/04/17 History [humaLOG Mix 75-25 Kwikpen] Meclizine [Antivert] 25 mg PO Q8H PRN 08/11/17 09/04/17 History Sacubitril/Valsartan [Entresto 24 1 tab PO DAILY 08/11/17 09/04/17 History mg-26 mg Tablet] Spironolactone [Aldactone] 25 mg PO BID 08/11/17 09/04/17 History traZODone HCL 50 mg PO HS 08/11/17 09/04/17 History Docusate [Colace] 100 mg PO BID cap 08/22/17 09/04/17 Rx Hydrocodone/Acetaminophen [[place] 1 tab PO Q6H PRN #40 tablet 08/22/17 09/04/17 Rx 10-325] Polyethylene Glycol 3350 [Miralax] 17 gm PO HS powd.pack 08/22/17 09/04/17 Rx Pregabalin [Lyrica] 75 mg PO HS #30 cap 08/22/17 09/04/17 Rx Calcium Ag Silver 1 applic TOPICAL WESA 09/04/17 09/04/17 History Hydrofera Blue 1 applic TOPICAL MOWEFR 09/04/17 09/04/17 History Insulin NPL/Insulin Lispro 20 unit SQ DAILY 09/04/17 09/04/17 History [humaLOG MIX 75-25 VIAL] Pantoprazole Sodium [Protonix] 40 mg PO DAILY 09/04/17 09/04/17 History Allergies Allergy/AdvReac Type Severity Reaction Status Date / Time Penicillins Allergy Rash/Hives Verified 09/04/17 08:55 propofol Allergy Unknown Verified 09/04/17 08:55 sulfamethoxazole AdvReac Abdominal Verified 09/04/17 08:55 [From Bactrim] Pain trimethoprim [From Bactrim] AdvReac Abdominal Verified 09/04/17 08:55 Pain Physical Exam Vitals: Vital Signs Temp Pulse Pulse Resp BP BP Pulse Ox 09/04/17 12:00 96.2 F L 64 18 137/63 09/04/17 08:00 59 L 16 135/63 100 09/04/17 03:30 96.9 F L 63 18 141/62 100 09/03/17 23:20 96.0 F L 57 L 18 138/62 99 09/03/17 22:34 66 16 130/78 98 09/03/17 20:31 97.5 F L 60 16 133/85 94 L Intake and Output 09/03/17 09/04/17 09/04/17 22:59 06:59 14:59 Intake Total 90 Output Total 200 Balance -110 Intake: Oral 90 Output: Urine 200 Other: Voiding Method Diaper Diaper # Voids 1 Weight 77.111 kg 77 kg 77 kg Patient Weight 09/05/17 06:59 Weight 77 kg In general patient is alert and oriented 3 in no apparent distress HEENT head normocephalic and atraumatic Neck is supple no JVD no goiter no lymphadenopathy Chest exam reveals a few scattered crackles no wheezing Cardiac exam reveals regular heart sounds no murmurs Abdomen is soft nontender no organomegaly Extremity exam reveals minimal edema there is a large open ulcer in the right pretibial area there are small multiple healing ulcers in the left pretibial area Results CBC & Chem 7: 09/03/17 21:04 09/03/17 21:04 Labs: Abnormal Lab Results - Last 24 Hours (Table) 09/03/17 09/03/17 09/03/17 Range/Units 21:04 21:04 21:04 RBC 3.42 L (3.80-5.40) m/uL Hgb 9.9 L (11.4-16.0) gm/dL Hct 32.6 L (34.0-46.0) % MCHC 30.2 L (31.0-37.0) g/dL RDW 18.0 H (11.5-15.5) % INR (<1.2) Carbon Dioxide 32 H (22-30) mmol/L BUN 19 H (7-17) mg/dL Glucose 251 H (74-99) mg/dL POC Glucose (mg/dL) (75-99) mg/dL Magnesium 1.4 L (1.6-2.3) mg/dL Alkaline Phosphatase 153 H (38-126) U/L Total Creatine Kinase <20 L (30-135) U/L Total Protein 5.7 L (6.3-8.2) g/dL Albumin 3.1 L (3.5-5.0) g/dL HDL Cholesterol (40-60) mg/dL 09/03/17 09/03/17 09/04/17 Range/Units 21:04 23:04 03:39 RBC (3.80-5.40) m/uL Hgb (11.4-16.0) gm/dL Hct (34.0-46.0) % MCHC (31.0-37.0) g/dL RDW (11.5-15.5) % INR 1.2 H (<1.2) Carbon Dioxide (22-30) mmol/L BUN (7-17) mg/dL Glucose (74-99) mg/dL POC Glucose (mg/dL) 232 H (75-99) mg/dL Magnesium (1.6-2.3) mg/dL Alkaline Phosphatase (38-126) U/L Total Creatine Kinase <20 L (30-135) U/L Total Protein (6.3-8.2) g/dL Albumin (3.5-5.0) g/dL HDL Cholesterol (40-60) mg/dL 09/04/17 09/04/17 09/04/17 Range/Units 03:39 05:44 09:12 RBC (3.80-5.40) m/uL Hgb (11.4-16.0) gm/dL Hct (34.0-46.0) % MCHC (31.0-37.0) g/dL RDW (11.5-15.5) % INR (<1.2) Carbon Dioxide (22-30) mmol/L BUN (7-17) mg/dL Glucose (74-99) mg/dL POC Glucose (mg/dL) 230 H (75-99) mg/dL Magnesium 1.5 L (1.6-2.3) mg/dL Alkaline Phosphatase (38-126) U/L Total Creatine Kinase <20 L (30-135) U/L Total Protein (6.3-8.2) g/dL Albumin (3.5-5.0) g/dL HDL Cholesterol 36 L (40-60) mg/dL 09/04/17 Range/Units 11:22 RBC (3.80-5.40) m/uL Hgb (11.4-16.0) gm/dL Hct (34.0-46.0) % MCHC (31.0-37.0) g/dL RDW (11.5-15.5) % INR (<1.2) Carbon Dioxide (22-30) mmol/L BUN (7-17) mg/dL Glucose (74-99) mg/dL POC Glucose (mg/dL) 242 H (75-99) mg/dL Magnesium (1.6-2.3) mg/dL Alkaline Phosphatase (38-126) U/L Total Creatine Kinase (30-135) U/L Total Protein (6.3-8.2) g/dL Albumin (3.5-5.0) g/dL HDL Cholesterol (40-60) mg/dL Thrombosis Risk Factor Assmnt - Choose All That Apply Any of the Below Risk Factors Present?: Yes Each Factor Represents 1 point: Obesity (BMI >25), Swollen legs (current), Varicose veins Other Risk Factors: Yes Each Risk Factor Represents 3 Points: Age 75 years or older, History of DVT/PE Thrombosis Risk Factor Assessment Total Risk Factor Score: 9 Thrombosis Risk Factor Assessment Level: High Risk Assessment and Plan Plan: #1 palpitation prior to admission cause is unclear patient may need investigation of her AICD to assess cause of her palpitation #2 episode of upper back pain resolves, troponin levels negative #3 underlying history of coronary artery disease with recent non-ST elevation myocardial infarction in May 2017 as above #4 paroxysmal atrial fibrillation #5 physical debility with severe gait instability with falls with head trauma #6 underlying history of diabetes mellitus #7 peripheral neuropathy #8 underlying history of ischemic cardiomyopathy, patient had previous AICD placement #9 hypomagnesemia on presentation #10 underlying history of hypothyroidism Plan to continue to monitor will discuss with cardiology any further testing as inpatient or outpatient
[2017-09-04 16:54] LABS: Glucose,Whole Blood 353 mg/dL (75-99)
[2017-09-04 20:28] LABS: Glucose,Whole Blood 284 mg/dL (75-99)
[2017-09-04] MEDS ORDERED: PREGABALIN 75 MG CAP PO SCH (21:00)
[2017-09-04] MEDS ORDERED: POLYETHYLENE GLYCOL 3350 17 GM POWD.PACK PO SCH (21:00)
[2017-09-04] MEDS ORDERED: traZODone HCL 50 MG TAB PO SCH (21:00)
[2017-09-04] MEDS: HYDROcodone/APAP 10-325MG 1 EACH TAB PO PRN (21:36)
[2017-09-05 05:55] LABS: Glucose,Whole Blood 202 mg/dL (75-99)
[2017-09-05] MEDS: NITROGLYCERIN OINT 1 INCH/GM PACKET TOPICAL SCH (06:01)
[2017-09-05] MEDS: PANTOPRAZOLE 40 MG TABLET PO SCH (06:20)
[2017-09-05] MEDS: INSULIN ASPART 100 UNIT/ML 1 ML 10 ML VIAL SQ SCH ×2 (06:20→12:25)
[2017-09-05] MEDS: LEVOTHYROXINE 25 MCG TAB PO SCH (06:21)
[2017-09-05 06:26] LABS: Anisocytosis Slight; Basophils % (A) 0 %; CH 29.4; CHCM 29.7; Eosinophils # (A) 0.2 k/uL (0-0.7); Eosinophils % (A) 4 %; HCT 33.4 % (34.0-46.0); HDW 2.88; HGB 9.8 gm/dL (11.4-16.0); Hypochromasia Marked; Luc # (Auto) 0.04; Luc % (Auto) 1; Lymphocytes % (A) 17 %; MCH 29.3 pg (25.0-35.0); MCHC 29.4 g/dL (31.0-37.0); MCV 99.7 fL (80.0-100.0); Macrocytosis Slight; Mean Platelet Volume 7.6; Monocytes # (A) 0.3 k/uL (0-1.0); Monocytes % (A) 6 %; Neutrophils # (A) 4.3 k/uL (1.3-7.7); Neutrophils % (A) 73 %; RBC 3.35 m/uL (3.80-5.40); RDW 18.4 % (11.5-15.5); WBC 5.9 k/uL (3.8-10.6); WBC (Perox) 6.56
[2017-09-05 06:46] LABS: ALT 38 U/L (9-52); AST 15 U/L (14-36); Alkaline Phosphatase 145 U/L (38-126); Anion Gap 8 mmol/L; Blood Urea Nitrogen 19 mg/dL (7-17); Calcium 9.2 mg/dL (8.4-10.2); Carbon Dioxide 30 mmol/L (22-30); Chloride 100 mmol/L (98-107); Glucose 192 mg/dL (74-99); Magnesium 1.4 mg/dL (1.6-2.3); Non-African American GFR(MDRD) >60 (>60 ml/min/1.73 sqM); Sodium 138 mmol/L (137-145); Total Bilirubin 0.6 mg/dL (0.2-1.3); Total Protein 5.4 g/dL (6.3-8.2)
[2017-09-05 07:09] LABS: Potassium 4.2 mmol/L (3.5-5.1)
[2017-09-05] MEDS: COLLAGENASE 250 UNIT/GM OINTMENT 30 GM TUBE TOPICAL SCH (08:12)
[2017-09-05] MEDS: METOPROLOL TARTRATE 50 MG TAB PO SCH (08:14)
[2017-09-05] MEDS: MAGNESIUM OXIDE 400 MG TAB PO SCH (08:14)
[2017-09-05] MEDS: ISOSORBIDE MONONITRATE ER 60 MG TAB.ER.24H PO SCH (08:14)
[2017-09-05] MEDS: ASPIRIN 81 MG PO SCH (08:14)
[2017-09-05] MEDS: FUROSEMIDE 40 MG TAB PO SCH (08:14)
[2017-09-05] MEDS: DOCUSATE 100 MG CAP PO SCH (08:14)
[2017-09-05] MEDS: ALLOPURINOL 300 MG TAB PO SCH (08:14)
[2017-09-05] MEDS: SACUBITRIL/VALSARTAN 24 MG-26 MG TABLET PO SCH (08:14)
[2017-09-05] MEDS: SPIRONOLACTONE 25 MG TAB PO SCH (08:14)
[2017-09-05] MEDS: CHOLECALCIFEROL 1,000 UNIT TAB PO SCH (08:15)
[2017-09-05] MEDS: HYDROcodone/APAP 10-325MG 1 EACH TAB PO PRN (08:19)
[2017-09-05 08:25] VITALS: RESP 16; TEMP 97.2
[2017-09-05 11:43] LABS: Glucose,Whole Blood 263 mg/dL (75-99)
--- NOTE | 2017-09-05 11:55 | P.PN ---
Subjective Progress Note Date: 09/05/17 Principal diagnosis: Palpitations This is a 77-year-old female patient with history of coronary artery disease and prior bypass surgery, hypertension, hyperlipidemia, paroxysmal atrial fibrillation, ischemic cardiomyopathy with prior AICD, admitted to the hospital from [facility] with complaints of palpitations. Patient's heart rate was noted to be around 110-114. She has had no tachycardia or bradycardia arrhythmias noted on the monitor. Remaining in stable rhythm. Cardiac enzymes were negative. Blood pressure 118/60 with a heart rate in the 80s. Objective - Vital Signs Vital signs: Vital Signs Temp 97.2 F L 09/05/17 08:00 Pulse 95 09/05/17 08:00 Resp 16 09/05/17 08:00 BP 118/64 09/05/17 08:00 Pulse Ox 95 09/05/17 08:00 Intake & Output 09/04/17 09/05/17 09/05/17 18:59 06:59 18:59 Intake Total 770 300 360 Output Total 550 100 Balance 220 200 360 Weight 77 kg 75.6 kg Intake: Oral 770 300 360 Output: Urine 550 100 Other: Voiding Method Diaper Bedside Commode Bedside Commode # Voids 2 # Bowel Movements 0 1 - Exam PHYSICAL EXAMINATION: HEENT: Head is atraumatic, normocephalic. Pupils equal, round. Neck is supple. There is no elevated jugular venous pressure. HEART EXAMINATION: Heart S1 and S2 systolic murmur is heard. CHEST EXAMINATION: Lungs are clear to auscultation and precussion. No chest wall tenderness is noted on palpation or with deep breathing. ABDOMEN: Soft, nontender. Bowel sounds are heard. No organomegaly noted. EXTREMITIES: 2+ peripheral pulses with no evidence of peripheral edema and no calf tenderness noted. NEUROLOGIC patient is awake, alert and oriented -3. . - Labs CBC & Chem 7: 09/05/17 05:47 09/05/17 05:47 Labs: Abnormal Lab Results - Last 24 Hours (Table) 09/04/17 09/04/17 09/04/17 Range/Units 09:12 11:22 16:44 RBC (3.80-5.40) m/uL Hgb (11.4-16.0) gm/dL Hct (34.0-46.0) % MCHC (31.0-37.0) g/dL RDW (11.5-15.5) % BUN (7-17) mg/dL Glucose (74-99) mg/dL POC Glucose (mg/dL) 242 H 353 H (75-99) mg/dL Hemoglobin A1c 9.5 H (4.0-6.0) % Magnesium (1.6-2.3) mg/dL Alkaline Phosphatase (38-126) U/L Total Protein (6.3-8.2) g/dL Albumin (3.5-5.0) g/dL 09/04/17 09/05/17 09/05/17 Range/Units 20:27 05:47 05:47 RBC 3.35 L (3.80-5.40) m/uL Hgb 9.8 L (11.4-16.0) gm/dL Hct 33.4 L (34.0-46.0) % MCHC 29.4 L (31.0-37.0) g/dL RDW 18.4 H (11.5-15.5) % BUN 19 H (7-17) mg/dL Glucose 192 H (74-99) mg/dL POC Glucose (mg/dL) 284 H (75-99) mg/dL Hemoglobin A1c (4.0-6.0) % Magnesium 1.4 L (1.6-2.3) mg/dL Alkaline Phosphatase 145 H (38-126) U/L Total Protein 5.4 L (6.3-8.2) g/dL Albumin 2.9 L (3.5-5.0) g/dL 09/05/17 Range/Units 05:53 RBC (3.80-5.40) m/uL Hgb (11.4-16.0) gm/dL Hct (34.0-46.0) % MCHC (31.0-37.0) g/dL RDW (11.5-15.5) % BUN (7-17) mg/dL Glucose (74-99) mg/dL POC Glucose (mg/dL) 202 H (75-99) mg/dL Hemoglobin A1c (4.0-6.0) % Magnesium (1.6-2.3) mg/dL Alkaline Phosphatase (38-126) U/L Total Protein (6.3-8.2) g/dL Albumin (3.5-5.0) g/dL Assessment and Plan Plan: Assessment and plan #1 palpitations, no evidence of any significant tachycardia or bradycardia arrhythmias. #2 known history of coronary artery disease with prior bypass surgery, most recently in May patient underwent unsuccessful angioplasty of the diagonal branch #3 hypertension #4 hyperlipidemia #5 ischemic cardiomyopathy with prior AICD #6 paroxysmal atrial fibrillation #7 hypothyroidism Plan From cardiology's perspective, we'll discontinue the Nitropaste, continue other medications. Follow-up appointment will be made in the office post discharge. We will follow her now on an as-needed basis only, please don't hesitate to call with any questions. DNP note has been reviewed, I agree with a documented findings and plan of care. Patient was seen and examined.
[2017-09-05] MEDS ORDERED: FERROUS SULFATE 325 MG TAB PO SCH (12:00)
--- NOTE | 2017-09-05 12:02 | P.DS ---
Providers Date of admission: 09/03/17 22:35 Expected date of discharge: 09/05/17 Attending physician: Giovanny Cesar Consults: 09/03/17 22:35 Consult Physician Urgent Consulting Provider: Sylvester Beth Consult Reason/Comments: arrythmia, cp Do you want consulting provider notified?: Yes 09/04/17 07:18 Consult Physician Routine Consulting Provider: Yoni Mejias Consult Reason/Comments: wounds to bilateral legs Do you want consulting provider notified?: Yes Primary care physician: [facility] Course: discharge diagnosis #1 palpitation :have resolved. No evidence of any significant tachycardia or bradycardia arrhythmias. Patient was evaluated by cardiology. They've cleared her for discharge. She'll follow-up with them in the office.TSH within normal range #2 episode of upper back pain resolves, troponin levels negative #3 underlying history of coronary artery disease with recent non-ST elevation myocardial infarction in May 2017 as above #4 paroxysmal atrial fibrillation #5 physical debility with severe gait instability with falls with head trauma #6 underlying history of diabetes mellitus #7 peripheral neuropathy #8 underlying history of ischemic cardiomyopathy, patient had previous AICD placement #9 hypomagnesemia on presentation #10 underlying history of hypothyroidism #11 hypomagnesemia: Magnesium at discharge 1.4. Increase magnesium to 400 mg 3 times a day. Repeat magnesium level in 1 week. Hospital course Shi Cam is a 77-year-old female well known to my practice who was in rehab at [facility] when she started having episodes of palpitation, she was told that her heart rate was 114 she states that she was also having "pain at the back of her heart", when asked if she was having chest pain she stated no , she denies any shortness of breath no cough no dizziness no fever or chills no nausea or vomiting no abdominal pain and no urinary symptoms. Patient has a known history of coronary artery disease she has a previous history of coronary artery bypass graft surgery she has a known history of ischemic cardiomyopathy with previous AICD placement, she had non-ST segment elevation myocardial infarction 3 months ago she underwent cardiac catheterization with Dr. Wall on 05/21/2017 she was found to have significant stenosis in the diagonal branch through the saphenous vein graft attempted angioplasty was unsuccessful. Patient has paroxysmal atrial fibrillation she is not on any anticoagulation at this time due to severe instability with her gait she had a recent fall with significant head trauma she is still has a large bruise on her left frontal area. patient's symptoms improved. She was evaluated by cardiology. Troponins were negative. There is no evidence of any tachycardia or bradycardia arrhythmias. Cardiology had cleared patient for discharge to follow up with her outpatient. Patient's magnesium has been increased to 3 times a day for her hypomagnesemia. And will recheck magnesium in 1 week. Her magnesium at discharge is 1.4.patient's symptoms have resolved. She is medically stable for discharge. And has been cleared by cardiology. She'll be discharged back to rehab at [facility]. I performed an examination of the patient and discussed their management with the physician Records Management Specialist. I have reviewed the Physician Records Management Specialist's notes and agree with the documented findings and plan of care Patient Condition at Discharge: Stable Plan - Discharge Summary New Discharge Prescriptions: New Collagenase [Santyl] 1 applic TOPICAL DAILY applic Magnesium Oxide [Mag-Ox] 400 mg PO TID #90 tab Continue Nitroglycerin Sl Tabs [Nitrostat] 0.4 mg SUBLINGUAL Q5M PRN PRN Reason: Chest Pain Metoprolol Tartrate [Lopressor] 50 mg PO BID Levothyroxine Sodium 25 mcg PO DAILY Isosorbide Mononitrate ER [Imdur] 60 mg PO DAILY Furosemide [Lasix] 40 mg PO DAILY Aspirin [Adult Low Dose Aspirin EC] 81 mg PO DAILY Allopurinol [Zyloprim] 300 mg PO DAILY Cholecalciferol [Vitamin D3] 1,000 unit PO DAILY Spironolactone [Aldactone] 25 mg PO BID Sacubitril/Valsartan [Entresto 24 mg-26 mg Tablet] 1 tab PO DAILY traZODone HCL 50 mg PO HS Meclizine [Antivert] 25 mg PO Q8H PRN PRN Reason: Nausea Ferrous Sulfate [Feosol] 325 mg PO MOWEFR Insulin Lispro Protamin/Lispro [humaLOG Mix 75-25 Kwikpen] 10 unit SQ HS Docusate [Colace] 100 mg PO BID cap Polyethylene Glycol 3350 [Miralax] 17 gm PO HS powd.pack Pregabalin [Lyrica] 75 mg PO HS #30 cap Calcium Ag Silver 1 applic TOPICAL WESA Hydrofera Blue 1 applic TOPICAL MOWEFR Insulin NPL/Insulin Lispro [humaLOG MIX 75-25 VIAL] 20 unit SQ DAILY Pantoprazole Sodium [Protonix] 40 mg PO DAILY Hydrocodone/Acetaminophen [[place] 10-325] 1 tab PO Q6H PRN #40 tablet PRN Reason: Pain Discontinued Magnesium Oxide [Mag-Ox] 400 mg PO DAILY Discharge Medication List Allopurinol [Zyloprim] 300 mg PO DAILY 04/18/17 [History] Aspirin [Adult Low Dose Aspirin EC] 81 mg PO DAILY 04/18/17 [History] Furosemide [Lasix] 40 mg PO DAILY 04/18/17 [History] Isosorbide Mononitrate ER [Imdur] 60 mg PO DAILY 04/18/17 [History] Levothyroxine Sodium 25 mcg PO DAILY 04/18/17 [History] Metoprolol Tartrate [Lopressor] 50 mg PO BID 04/18/17 [History] Nitroglycerin Sl Tabs [Nitrostat] 0.4 mg SUBLINGUAL Q5M PRN 04/18/17 [History] Cholecalciferol [Vitamin D3] 1,000 unit PO DAILY 08/11/17 [History] Ferrous Sulfate [Feosol] 325 mg PO MOWEFR 08/11/17 [History] Insulin Lispro Protamin/Lispro [humaLOG Mix 75-25 Kwikpen] 10 unit SQ HS [History] Meclizine [Antivert] 25 mg PO Q8H PRN 08/11/17 [History] Sacubitril/Valsartan [Entresto 24 mg-26 mg Tablet] 1 tab PO DAILY 08/11/17 [ History] Spironolactone [Aldactone] 25 mg PO BID 08/11/17 [History] traZODone HCL 50 mg PO HS 08/11/17 [History] Docusate [Colace] 100 mg PO BID cap 08/22/17 [Rx] Polyethylene Glycol 3350 [Miralax] 17 gm PO HS powd.pack 08/22/17 [Rx] Pregabalin [Lyrica] 75 mg PO HS #30 cap 08/22/17 [Rx] Calcium Ag Silver 1 applic TOPICAL WESA 09/04/17 [History] Hydrofera Blue 1 applic TOPICAL MOWEFR 09/04/17 [History] Insulin NPL/Insulin Lispro [humaLOG MIX 75-25 VIAL] 20 unit SQ DAILY 09/04/17 [ History] Pantoprazole Sodium [Protonix] 40 mg PO DAILY 09/04/17 [History] Collagenase [Santyl] 1 applic TOPICAL DAILY applic 09/05/17 [Rx] Hydrocodone/Acetaminophen [[place] 10-325] 1 tab PO Q6H PRN #40 tablet 09/05/17 [ Rx] Magnesium Oxide [Mag-Ox] 400 mg PO TID #90 tab 09/05/17 [Rx] Follow up Appointment(s)/Referral(s): Aneta Berger MD [Primary Care Provider] - 1 Week Kenneth Viveros MD [STAFF PHYSICIAN] - 1 Week Activity/Diet/Wound Care/Special Instructions: cleared from cardiology Diet: cardiac and diabetic Activity: As tolerated discharge patient back to [facility] Discharge Disposition: TRANSFER TO SNF/ECF
[2017-09-05 12:18] VITALS: BP 118/63; PULSE 63
[2017-09-05 13:56] VITALS: BMI 30.4
--- NOTE | 2017-09-05 20:07 | CONS ---
CONSULTATION DATE OF CONSULTATION: 09/05/2017 REASON FOR CONSULTATION: Right leg wound. HISTORY OF PRESENT ILLNESS: The patient is a 77-year-old female, well known to my service from recent admission to the hospital with right lower extremity wound with the patient currently being treated with Hydrofera Blue at the [facility]. The patient who is a resident of the [facility] has been brought into the ER at [facility] on the with the chief complaints of palpitation and the patient complaining of some pain in the back of heart. No clear history of any nausea, no vomiting. No fever. The patient was noticed to be in atrial fibrillation with RVR and has been managed by both Cardiology and the primary team. ID was consulted for further recommendation regarding her right leg wound. I did evaluate the patient this morning but the patient denies having any pain in the right leg area. Current local wound care has been Hydrofera Blue dressing. Unfortunately, the dressing has not been changed since it was done at the [facility] last week. There is no significant drainage from it. The patient denies having any chest pain or shortness of breath or cough or abdominal pain to me. REVIEW OF SYSTEMS: Constitutional: Positive for weakness. No fever. Eyes: No complaint. ENT no complaint. Respiratory no complaint. Cardiovascular as per HPI. Genitourinary: No complaint. Gastrointestinal: No complaint. Musculoskeletal: No complaint. Integumentary as per HPI. PSYCHOLOGICAL: No complaint. Endocrine: No complaint. Neurological no complaint. PAST MEDICAL HISTORY: Atrial fibrillation, diabetes mellitus, hypertension, [place], pulmonary embolism, heart failure, neuropathy, hypothyroidism, and right lower extremity wound. PAST SURGICAL HISTORY: Cholecystectomy, coronary artery bypass grafting, PTCA with stenting, pacemaker placement and tonsillectomy. SOCIAL HISTORY: No history of smoking, drinking, drug use. FAMILY HISTORY: Mother with history of CVA, TIA and father with history of diabetes. ALLERGIES: TO PROPOFOL, SULFAMETHOXAZOLE AND PENICILLIN. MEDICATIONS: Include the patient is on: [place], Zyloprim, aspirin, vitamin D3 Colace, iron sulfate, Lasix, NovoLog and Imdur, Synthroid, Mag oxide, Antivert, Lopressor, Nitrostat, Protonix, MiraLAX. EXAMINATION: Blood pressure is 119/60 with a pulse of 53, temperature of 97.2. She is 100% on 2 L nasal cannula. General description is an elderly female up in the chair in no distress. No tachypnea or accessory muscle of respiration use. HEENT examination is slight pallor. No scleral icterus. Oral mucosa membranes are dry. Neck trachea central. No thyromegaly. Lungs unlabored breathing. Some decreased breath sounds at the bases. No wheeze or crackles. Heart S1, S2. Irregular rhythm. ABDOMEN: Soft, no tenderness. No guarding or rigidity. Extremities: Right leg with wound currently covered with Hydrofera Blue. No surrounding swelling, redness, minimal foul smelling. Neurological: Patient is awake, alert, oriented x3. Mood and affect normal. LABS: Hemoglobin is 9.8, white count 5.9 with a BUN of 19, creatinine 0.90. DIAGNOSTIC IMPRESSION AND PLAN: Patient with chronic right lower extremity wound, likely venous stasis ulcer with no cellulitis. Recommend local wound care. No need for any systemic antibiotic therapy. PLAN: 1. As the patient plan to be discharge back to detention today, instruction has been sent with the patient that the Hydrofera Blue dressing needs to be changed today and she is scheduled to follow up in the [facility] on Tuesday. 2. There is no evidence of any secondary cellulitis. Hence, no need for systemic antibiotic therapy. Thank you for the consultation. Plan of care was discussed in detail with the patient as well as the daughter who was present at the bedside. MMODL / IJN: [id number] /
== END 2017-09-05 14:59 ==
LOC: EC 20:29 → 6SEL 22:35
PROVIDERS: ADMIT Internal Medicine; ATTEND Internal Medicine
DX: R00.2 Palpitations (principal); M54.89 Other dorsalgia; Z95.810 Presence of automatic (implantable) cardiac defibrillator; I13.10 Hypertensive heart and chronic kidney disease without heart failure, with stage 1 through stage 4 chronic kidney disease, or unspecified chronic kidney disease; I25.5 Ischemic cardiomyopathy; E11.22 Type 2 diabetes mellitus with diabetic chronic kidney disease; N18.9 Chronic kidney disease, unspecified; I50.9 Heart failure, unspecified; I48.0 Paroxysmal atrial fibrillation; E11.42 Type 2 diabetes mellitus with diabetic polyneuropathy; R26.9 Unspecified abnormalities of gait and mobility; S00.83XA Contusion of other part of head, initial encounter; W19.XXXA Unspecified fall, initial encounter; Z91.81 History of falling; I25.10 Atherosclerotic heart disease of native coronary artery without angina pectoris; E03.9 Hypothyroidism, unspecified; E83.42 Hypomagnesemia; E66.9 Obesity, unspecified; Z68.25 Body mass index [BMI] 25.0-25.9, adult; E78.5 Hyperlipidemia, unspecified; E11.622 Type 2 diabetes mellitus with other skin ulcer; I83.018 Varicose veins of right lower extremity with ulcer other part of lower leg; L97.819 Non-pressure chronic ulcer of other part of right lower leg with unspecified severity; Z95.1 Presence of aortocoronary bypass graft; I83.893 Varicose veins of bilateral lower extremities with other complications; Z95.5 Presence of coronary angioplasty implant and graft; Z79.4 Long term (current) use of insulin; Z79.82 Long term (current) use of aspirin; Z79.899 Other long term (current) drug therapy; Z88.4 Allergy status to anesthetic agent; Z88.1 Allergy status to other antibiotic agents; Z88.0 Allergy status to penicillin; Z88.2 Allergy status to sulfonamides; Z86.711 Personal history of pulmonary embolism; Z86.14 Personal history of Methicillin resistant Staphylococcus aureus infection; I25.2 Old myocardial infarction; Z82.3 Family history of stroke
CPT/HCPCS: 99285 ×2; 36415; 93005; 84439; 84481; 80061; 80053 ×2; 82550 ×2; 82553 ×2; 83735 ×3; 84443; 84484 ×2; 85025 ×2; 85610; 85730; 83036; 71020; G0378 ×3

== ENCOUNTER 2017-09-18 13:03 | Inpatient (IN) | payer MEDICARE, OTHER ==
[2017-09-18 13:17] LABS: Glucose,Whole Blood 297 mg/dL (75-99)
--- NOTE | 2017-09-18 13:20 | ED ---
General Adult HPI - General Chief complaint: Weakness Stated complaint: weakness Time Seen by Provider: 09/18/17 13:10 Source: patient, EMS, RN notes reviewed Mode of arrival: EMS Limitations: no limitations - History of Present Illness Initial comments: Patient is a pleasant 77-year-old female presenting to the emergency Department with generalized weakness. Symptoms have progressed over the past week. Patient feels fatigued. No isolated area of weakness. Patient does feel somewhat slow and confused. No fever. Patient did have a fall and hit her head a few weeks ago. Patient does not believe she had any internal bleeding. - Related Data Home Medications Medication Instructions Recorded Confirmed Allopurinol [Zyloprim] 300 mg PO DAILY@0800 04/18/17 09/18/17 Aspirin [Adult Low Dose Aspirin EC] 81 mg PO DAILY@0800 04/18/17 09/18/17 Furosemide [Lasix] 40 mg PO DAILY 04/18/17 09/18/17 Isosorbide Mononitrate ER [Imdur] 60 mg PO DAILY@0800 04/18/17 09/18/17 Levothyroxine Sodium 25 mcg PO DAILY@1800 04/18/17 09/18/17 Metoprolol Tartrate [Lopressor] 50 mg PO BID 04/18/17 09/18/17 Nitroglycerin Sl Tabs [Nitrostat] 0.4 mg SUBLINGUAL Q5M PRN 04/18/17 09/18/17 Cholecalciferol [Vitamin D3] 1,000 unit PO DAILY@1700 08/11/17 09/18/17 Ferrous Sulfate [Feosol] 325 mg PO MOWEFR@1700 08/11/17 09/18/17 Meclizine [Antivert] 25 mg PO Q8H PRN 08/11/17 09/18/17 Sacubitril/Valsartan [Entresto 24 1 tab PO DAILY@0800 08/11/17 09/18/17 mg-26 mg Tablet] Spironolactone [Aldactone] 25 mg PO BID 08/11/17 09/18/17 traZODone HCL 50 mg PO HS@199908/11/17 09/18/17 Insulin NPL/Insulin Lispro 15 unit SQ HS@199909/04/17 09/18/17 [humaLOG MIX 75-25 VIAL] Docusate [Colace] 100 mg PO BID@0800,1700 09/18/17 09/18/17 Furosemide [Lasix] 20 mg PO DAILY@1700 09/18/17 09/18/17 Insulin NPL/Insulin Lispro 25 unit SQ DAILY@0800 09/18/17 09/18/17 [humaLOG MIX 75-25 VIAL] Magnesium Oxide [Mag-Ox] 400 mg PO TID@0800,1600,199909/18/17 09/18/17 Omeprazole [PriLOSEC] 20 mg PO HS 09/18/17 09/18/17 Polyethylene Glycol 3350 [Miralax] 17 gm PO DAILY@1600 09/18/17 09/18/17 Pregabalin [Lyrica] 75 mg PO HS@199909/18/17 09/18/17 Previous Rx's Medication Instructions Recorded Hydrocodone/Acetaminophen [[place] 1 tab PO Q6H PRN #40 tablet 09/05/17 10-325] Allergies Allergy/AdvReac Type Severity Reaction Status Date / Time Penicillins Allergy Rash/Hives Verified 09/18/17 13:32 propofol Allergy Unknown Verified 09/18/17 13:32 sulfamethoxazole AdvReac Abdominal Verified 09/18/17 13:32 [From Bactrim] Pain trimethoprim [From Bactrim] AdvReac Abdominal Verified 09/18/17 13:32 Pain Review of Systems ROS Statement: Those systems with pertinent positive or pertinent negative responses have been documented in the HPI. ROS Other: All systems not noted in ROS Statement are negative. Constitutional: Denies: fever Eyes: Denies: eye pain ENT: Denies: ear pain Respiratory: Denies: cough Cardiovascular: Denies: chest pain Endocrine: Denies: fatigue Gastrointestinal: Denies: abdominal pain Genitourinary: Denies: dysuria Musculoskeletal: Denies: back pain Skin: Denies: rash Neurological: Reports: weakness (generalized), confusion. Denies: headache, numbness Past Medical History Past Medical History: Atrial Fibrillation, Heart Failure, Diabetes Mellitus, Hypertension, Myocardial Infarction ([place]), Pulmonary Embolus ([place]) Additional Past Medical History / Comment(s): hypothyrodism, Kidney failure, neuropathy, wounds to bilateral legs- goes to wound clinic Last Myocardial Infarction Date:: 1994 History of Any Multi-Drug Resistant Organisms: MRSA, Other MDRO Date of last positivie culture/infection: 04/19/11-MRSA MDRO Source:: MDRO-Right Leg; MRSA-Unknown Past Surgical History: Cholecystectomy, Coronary Bypass/CABG, Heart Catheterization With Stent, Pacemaker, Tonsillectomy Additional Past Surgical History / Comment(s): Defibrillator, pacemaker, breast reduction, varicous veins, wound on right leg Past Anesthesia/Blood Transfusion Reactions: No Reported Reaction Additional Past Anesthesia/Blood Transfusion Reaction / Comment(s): allergic to propofol Date of Last Stent Placement:: 1994 Type of Cardiac Device: Permanent Pacemaker Device Placement Date:: 2011 Past Psychological History: No Psychological Hx Reported Smoking Status: Never smoker Past Alcohol Use History: None Reported Past Drug Use History: None Reported - Past Family History Mother Family Medical History: CVA/TIA Additional Family Medical History / Comment(s): at age 43 of a stroke Father Family Medical History: Diabetes Mellitus Additional Family Medical History / Comment(s): age 81 General Exam Limitations: no limitations General appearance: alert, in no apparent distress Head exam: Present: other (mild ecchymosis left forehead) Eye exam: Present: normal appearance, PERRL, EOMI. Absent: nystagmus ENT exam: Present: normal oropharynx Neck exam: Present: normal inspection. Absent: tenderness Respiratory exam: Present: normal lung sounds bilaterally Cardiovascular Exam: Present: regular rate, normal rhythm GI/Abdominal exam: Present: soft. Absent: tenderness Extremities exam: Present: normal inspection, full ROM. Absent: tenderness Neurological exam: Present: alert, oriented X3, CN II-XII intact. Absent: motor sensory deficit Expanded Patient oriented to: Present: person, place, time Speech: Present: fluid speech Cranial nerves: EOM's Intact: Normal Sensory exam: Upper Extremity Light Touch: Normal, Lower Extremity Light Touch: Normal Motor strength exam: RUE: 5, LUE: 5, RLE: 5, LLE: 5 Eye Response: (4) open spontaneously Motor Response: (6) obeys commands Verbal Response: (5) oriented Psychiatric exam: Present: normal affect, normal mood Skin exam: Present: other (mild ecchymosis left forehead) Course Vital Signs 09/18/17 09/18/17 09/18/17 13:09 14:16 15:15 Temperature 96.7 F L Pulse Rate 59 L 61 58 L Respiratory 18 16 16 Rate Blood Pressure 150/66 132/61 117/68 O2 Sat by Pulse 96 96 98 Oximetry - Reevaluation(s) Reevaluation #1: 09/18/17 16:26 patient does not meet sepsis criteria. EKG Findings - EKG Comments: EKG Findings:: sinus bradycardia 59. For screening AV block SC of 250. QRS 110. QT 472. QTC 467. Right axis. Poor R-wave progression. Septal Q waves. Medical Decision Making - Medical Decision Making patient reevaluated and resting comfortably in bed. Patient and family updated on results and plan. Case was discussed in detail with Dr. Cesar, who will admit his patient. Family states patient has gained 8 pounds in the past week. - Lab Data Result diagrams: 09/18/17 13:20 09/18/17 13:20 Lab Results 09/18/17 09/18/17 09/18/17 Range/Units 13:12 13:20 13:20 WBC 8.6 (3.8-10.6) k/uL RBC 3.58 L (3.80-5.40) m/uL Hgb 10.5 L (11.4-16.0) gm/dL Hct 35.0 (34.0-46.0) % MCV 97.9 (80.0-100.0) fL MCH 29.3 (25.0-35.0) pg MCHC 29.9 L (31.0-37.0) g/dL RDW 18.5 H (11.5-15.5) % Plt Count 170 (150-450) k/uL Neutrophils % 82 % Lymphocytes % 10 % Monocytes % 5 % Eosinophils % 1 % Basophils % 0 % Neutrophils # 7.1 (1.3-7.7) k/uL Lymphocytes # 0.8 L (1.0-4.8) k/uL Monocytes # 0.5 (0-1.0) k/uL Eosinophils # 0.1 (0-0.7) k/uL Basophils # 0.0 (0-0.2) k/uL Hypochromasia Marked Anisocytosis Slight Macrocytosis Slight PT (9.0-12.0) sec INR (<1.2) APTT (22.0-30.0) sec Sodium (137-145) mmol/L Potassium (3.5-5.1) mmol/L Chloride (98-107) mmol/L Carbon Dioxide (22-30) mmol/L Anion Gap mmol/L BUN (7-17) mg/dL Creatinine (0.52-1.04) mg/dL Est GFR (MDRD) Af Amer (>60 ml/min/1.73 sqM) Est GFR (MDRD) Non-Af (>60 ml/min/1.73 sqM) Glucose (74-99) mg/dL POC Glucose (mg/dL) 297 H (75-99) mg/dL POC Glu Channel [employer] Machine ID Ellen Blake Plasma Lactic Acid Asif (0.7-2.0) mmol/L Calcium (8.4-10.2) mg/dL Phosphorus (2.5-4.5) mg/dL Magnesium (1.6-2.3) mg/dL Total Bilirubin (0.2-1.3) mg/dL AST (14-36) U/L ALT (9-52) U/L Alkaline Phosphatase (38-126) U/L Total Creatine Kinase 21 L (30-135) U/L CK-MB (CK-2) 0.4 (0.0-2.4) ng/mL CK-MB (CK-2) Rel Index 1.9 Troponin I 0.014 (0.000-0.034) ng/mL NT-Pro-B Natriuret Pep pg/mL Total Protein (6.3-8.2) g/dL Albumin (3.5-5.0) g/dL TSH (0.465-4.680) mIU/L Free T4 (0.78-2.19) ng/dL Free T3 pg/mL (2.8-5.3) pg/ml Urine Color Urine Appearance (Clear) Urine pH (5.0-8.0) Ur Specific [place] (1.001-1.035) Urine Protein (Negative) Urine Glucose (UA) (Negative) Urine Ketones (Negative) Urine Blood (Negative) Urine Nitrite (Negative) Urine Bilirubin (Negative) Urine Urobilinogen (<2.0) mg/dL Ur Leukocyte Esterase (Negative) Urine RBC (0-5) /hpf Urine WBC (0-5) /hpf Urine WBC Clumps (None) /hpf Urine Bacteria (None) /hpf Hyaline Casts (0-2) /lpf Urine Mucus (None) /hpf 09/18/17 09/18/17 09/18/17 Range/Units 13:20 13:20 13:20 WBC (3.8-10.6) k/uL RBC (3.80-5.40) m/uL Hgb (11.4-16.0) gm/dL Hct (34.0-46.0) % MCV (80.0-100.0) fL MCH (25.0-35.0) pg MCHC (31.0-37.0) g/dL RDW (11.5-15.5) % Plt Count (150-450) k/uL Neutrophils % % Lymphocytes % % Monocytes % % Eosinophils % % Basophils % % Neutrophils # (1.3-7.7) k/uL Lymphocytes # (1.0-4.8) k/uL Monocytes # (0-1.0) k/uL Eosinophils # (0-0.7) k/uL Basophils # (0-0.2) k/uL Hypochromasia Anisocytosis Macrocytosis PT (9.0-12.0) sec INR (<1.2) APTT (22.0-30.0) sec Sodium 135 L (137-145) mmol/L Potassium 4.8 (3.5-5.1) mmol/L Chloride 97 L (98-107) mmol/L Carbon Dioxide 29 (22-30) mmol/L Anion Gap 9 mmol/L BUN 26 H (7-17) mg/dL Creatinine 1.00 (0.52-1.04) mg/dL Est GFR (MDRD) Af Amer >60 (>60 ml/min/1.73 sqM) Est GFR (MDRD) Non-Af 54 (>60 ml/min/1.73 sqM) Glucose 298 H (74-99) mg/dL POC Glucose (mg/dL) (75-99) mg/dL POC Glu Channel [employer] Machine ID Plasma Lactic Acid Asif 1.0 (0.7-2.0) mmol/L Calcium 9.5 (8.4-10.2) mg/dL Phosphorus 3.5 (2.5-4.5) mg/dL Magnesium 1.6 (1.6-2.3) mg/dL Total Bilirubin 0.8 (0.2-1.3) mg/dL AST 15 (14-36) U/L ALT 32 (9-52) U/L Alkaline Phosphatase 137 H (38-126) U/L Total Creatine Kinase (30-135) U/L CK-MB (CK-2) (0.0-2.4) ng/mL CK-MB (CK-2) Rel Index Troponin I (0.000-0.034) ng/mL NT-Pro-B Natriuret Pep 71784 pg/mL Total Protein 5.8 L (6.3-8.2) g/dL Albumin 3.3 L (3.5-5.0) g/dL TSH 2.030 (0.465-4.680) mIU/L Free T4 1.74 (0.78-2.19) ng/dL Free T3 pg/mL 3.4 (2.8-5.3) pg/ml Urine Color Urine Appearance (Clear) Urine pH (5.0-8.0) Ur Specific [place] (1.001-1.035) Urine Protein (Negative) Urine Glucose (UA) (Negative) Urine Ketones (Negative) Urine Blood (Negative) Urine Nitrite (Negative) Urine Bilirubin (Negative) Urine Urobilinogen (<2.0) mg/dL Ur Leukocyte Esterase (Negative) Urine RBC (0-5) /hpf Urine WBC (0-5) /hpf Urine WBC Clumps (None) /hpf Urine Bacteria (None) /hpf Hyaline Casts (0-2) /lpf Urine Mucus (None) /hpf 09/18/17 09/18/17 Range/Units 13:20 14:22 WBC (3.8-10.6) k/uL RBC (3.80-5.40) m/uL Hgb (11.4-16.0) gm/dL Hct (34.0-46.0) % MCV (80.0-100.0) fL MCH (25.0-35.0) pg MCHC (31.0-37.0) g/dL RDW (11.5-15.5) % Plt Count (150-450) k/uL Neutrophils % % Lymphocytes % % Monocytes % % Eosinophils % % Basophils % % Neutrophils # (1.3-7.7) k/uL Lymphocytes # (1.0-4.8) k/uL Monocytes # (0-1.0) k/uL Eosinophils # (0-0.7) k/uL Basophils # (0-0.2) k/uL Hypochromasia Anisocytosis Macrocytosis PT 11.0 (9.0-12.0) sec INR 1.1 (<1.2) APTT 20.5 L (22.0-30.0) sec Sodium (137-145) mmol/L Potassium (3.5-5.1) mmol/L Chloride (98-107) mmol/L Carbon Dioxide (22-30) mmol/L Anion Gap mmol/L BUN (7-17) mg/dL Creatinine (0.52-1.04) mg/dL Est GFR (MDRD) Af Amer (>60 ml/min/1.73 sqM) Est GFR (MDRD) Non-Af (>60 ml/min/1.73 sqM) Glucose (74-99) mg/dL POC Glucose (mg/dL) (75-99) mg/dL POC Glu Channel [employer] Insole Machine ID Plasma Lactic Acid Asif (0.7-2.0) mmol/L Calcium (8.4-10.2) mg/dL Phosphorus (2.5-4.5) mg/dL Magnesium (1.6-2.3) mg/dL Total Bilirubin (0.2-1.3) mg/dL AST (14-36) U/L ALT (9-52) U/L Alkaline Phosphatase (38-126) U/L Total Creatine Kinase (30-135) U/L CK-MB (CK-2) (0.0-2.4) ng/mL CK-MB (CK-2) Rel Index Troponin I (0.000-0.034) ng/mL NT-Pro-B Natriuret Pep pg/mL Total Protein (6.3-8.2) g/dL Albumin (3.5-5.0) g/dL TSH (0.465-4.680) mIU/L Free T4 (0.78-2.19) ng/dL Free T3 pg/mL (2.8-5.3) pg/ml Urine Color Yellow Urine Appearance Cloudy H (Clear) Urine pH 6.5 (5.0-8.0) Ur Specific [place] 1.010 (1.001-1.035) Urine Protein Negative (Negative) Urine Glucose (UA) Negative (Negative) Urine Ketones Negative (Negative) Urine Blood Trace H (Negative) Urine Nitrite Positive H (Negative) Urine Bilirubin Negative (Negative) Urine Urobilinogen <2.0 (<2.0) mg/dL Ur Leukocyte Esterase Large H (Negative) Urine RBC 9 H (0-5) /hpf Urine WBC >182 H (0-5) /hpf Urine WBC Clumps Many H (None) /hpf Urine Bacteria Occasional H (None) /hpf Hyaline Casts 6 H (0-2) /lpf Urine Mucus Rare H (None) /hpf - Radiology Data Radiology results: report reviewed (Computed tomography scan of brain shows atrophy and chronic small vessel ischemia. No acute intercranial abnormality.) , image reviewed (two-view chest x-ray shows bilateral effusions.) Disposition Clinical Impression: Congestive heart failure (CHF), Urinary tract infection Disposition: ADMITTED IP TO THIS HOSP Referrals: Aneta Berger MD [STAFF PHYSICIAN] - 1-2 days
[2017-09-18 13:39] LABS: Anisocytosis Slight; Basophils % (A) 0 %; Eosinophils # (A) 0.1 k/uL (0-0.7); Eosinophils % (A) 1 %; HGB 10.5 gm/dL (11.4-16.0); Hypochromasia Marked; Lymphocytes # (A) 0.8 k/uL (1.0-4.8); Lymphocytes % (A) 10 %; MCH 29.3 pg (25.0-35.0); MCHC 29.9 g/dL (31.0-37.0); MCV 97.9 fL (80.0-100.0); Macrocytosis Slight; Mean Platelet Volume 8.2; Monocytes # (A) 0.5 k/uL (0-1.0); Monocytes % (A) 5 %; Neutrophils # (A) 7.1 k/uL (1.3-7.7); Neutrophils % (A) 82 %; Platelet Count 170 k/uL (150-450); RBC 3.58 m/uL (3.80-5.40); RDW 18.5 % (11.5-15.5); WBC 8.6 k/uL (3.8-10.6)
[2017-09-18 13:51] LABS: ALT 32 U/L (9-52); AST 15 U/L (14-36); Albumin 3.3 g/dL (3.5-5.0); Alkaline Phosphatase 137 U/L (38-126); Anion Gap 9 mmol/L; Blood Urea Nitrogen 26 mg/dL (7-17); Calcium 9.5 mg/dL (8.4-10.2); Carbon Dioxide 29 mmol/L (22-30); Chloride 97 mmol/L (98-107); Glucose 298 mg/dL (74-99); Magnesium 1.6 mg/dL (1.6-2.3); Phosphorus 3.5 mg/dL (2.5-4.5); Potassium 4.8 mmol/L (3.5-5.1); Sodium 135 mmol/L (137-145); Total Bilirubin 0.8 mg/dL (0.2-1.3); Total Protein 5.8 g/dL (6.3-8.2)
[2017-09-18 13:55] LABS: INR 1.1 (<1.2)
[2017-09-18 14:06] LABS: Partial Thromboplastin Time 20.5 sec (22.0-30.0)
[2017-09-18 14:07] LABS: T4, Free (Free Thyroxine) 1.74 ng/dL (0.78-2.19)
[2017-09-18 14:14] LABS: Creatine Kinase MB 0.4 ng/mL (0.0-2.4); Troponin I 0.014 ng/mL (0.000-0.034)
[2017-09-18 14:39] LABS: Appearance,Urine Cloudy (Clear); Bacteria,Urine Occasional /hpf; Bilirubin,Urine Negative (Negative); Blood,Urine Trace (Negative); Color,Urine Yellow; Glucose,Urine (UA) Negative (Negative); Hyaline Casts,Urine 6 /lpf (0-2); Ketones,Urine Negative (Negative); Leukocyte Esterase,Urine Large (Negative); Mucus,Urine Rare /hpf; Nitrite,Urine Positive (Negative); PH, Urine 6.5 (5.0-8.0); Protein,Urine Negative (Negative); RBC,Urine 9 /hpf (0-5); Urobilinogen,Urine <2.0 mg/dL (<2.0); WBC,Urine >182 /hpf (0-5)
--- NOTE | 2017-09-18 15:22 | CT ---
EXAMINATION TYPE: CT brain wo con DATE OF EXAM: 09/18/2017 COMPARISON: 08/14/2017 HISTORY: Weakness CT DLP: 999.8 mGycm Automated exposure control for dose reduction was used. FINDINGS: There is cerebral cortical atrophy. There is no mass effect nor midline shift. There is no sign of in tracranial hemorrhage. The calvarium is intact. IMPRESSION: CEREBRAL ATROPHY AND CHRONIC SMALL VESSEL ISCHEMIA. NO ACUTE INTRACRANIAL ABNORMALITY. NO CHANGE.
--- NOTE | 2017-09-18 15:40 | XR ---
EXAMINATION TYPE: XR chest 2V DATE OF EXAM: 09/18/2017 COMPARISON: 09/03/2017 HISTORY: Weakness TECHNIQUE: Frontal and lateral views of the chest are obtained. FINDINGS: Heart is enlarged. There is no gross heart failure. There is left axillary pacemaker with the lead tips in the right ventricle. There are chest leads. There is some blunting of costophrenic a ngles. IMPRESSION: Bilateral pleural effusions without change compared to last exam. Cardiomegaly. Pulmonar y vascularity is improved compared to last exam. No overt heart failure.
[2017-09-18] MEDS ORDERED: ASPIRIN 325 MG TAB PO STA (16:27)
[2017-09-18] MEDS ORDERED: cefTRIAXone IN SWFI 1,000 MG/10 ML SYRINGE IVP STA (16:36)
[2017-09-18] MEDS ORDERED: FUROSEMIDE 10 MG/ML 4 ML VIAL IV STA (16:37)
[2017-09-18 17:38] LABS: Glucose,Whole Blood 312 mg/dL (75-99)
[2017-09-18] MEDS ORDERED: MECLIZINE 25 MG TAB PO PRN (18:26)
[2017-09-18] MEDS ORDERED: NITROGLYCERIN SL TABS 0.4 MG TAB SUBLINGUAL PRN (18:26)
[2017-09-18] MEDS: NITROGLYCERIN OINT 1 INCH/GM PACKET TOPICAL SCH ×2 (18:55→23:53)
[2017-09-18] MEDS ORDERED: INSULIN ASPART 100 UNIT/ML 1 ML 10 ML VIAL SQ ONE (19:00)
[2017-09-18 21:05] LABS: Glucose,Whole Blood 292 mg/dL (75-99)
[2017-09-18] MEDS: INSULN ASP PRT/INSULIN ASPART 100 UNIT/ML 10 ML VIAL SQ SCH (22:16)
[2017-09-18] MEDS: MAGNESIUM OXIDE 400 MG TAB PO SCH (22:16)
[2017-09-18] MEDS: METOPROLOL TARTRATE 50 MG TAB PO SCH (22:17)
[2017-09-18] MEDS: SACUBITRIL/VALSARTAN 24 MG-26 MG TABLET PO SCH (22:17)
[2017-09-18] MEDS: traZODone HCL 50 MG TAB PO SCH (22:17)
[2017-09-18] MEDS: INSULIN ASPART 100 UNIT/ML 1 ML 10 ML VIAL SQ SCH (22:17)
[2017-09-18] MEDS: PREGABALIN 75 MG CAP PO SCH (22:17)
[2017-09-18] MEDS: SPIRONOLACTONE 25 MG TAB PO SCH (22:18)
[2017-09-18] MEDS: PANTOPRAZOLE 40 MG TABLET PO SCH (22:18)
[2017-09-18 23:04] LABS: Hemoglobin A1C 9.5 % (4.0-6.0)
[2017-09-18] MEDS: FUROSEMIDE 10 MG/ML 4 ML VIAL IV SCH (23:51)
[2017-09-18] MEDS: HYDROcodone/APAP 10-325MG 1 EACH TAB PO PRN (23:53)
[2017-09-19 06:12] LABS: Glucose,Whole Blood 153 mg/dL (75-99)
[2017-09-19] MEDS: INSULIN ASPART 100 UNIT/ML 1 ML 10 ML VIAL SQ SCH ×4 (06:47→22:05)
[2017-09-19] MEDS: FUROSEMIDE 10 MG/ML 4 ML VIAL IV SCH ×3 (08:38→23:34)
[2017-09-19] MEDS: ASPIRIN 81 MG PO SCH (08:38)
[2017-09-19] MEDS: POLYETHYLENE GLYCOL 3350 17 GM POWD.PACK PO SCH (08:39)
[2017-09-19] MEDS: DOCUSATE 100 MG CAP PO SCH ×2 (08:39→16:15)
[2017-09-19] MEDS: SPIRONOLACTONE 25 MG TAB PO SCH ×2 (08:39→23:34)
[2017-09-19] MEDS: ALLOPURINOL 300 MG TAB PO SCH (08:39)
[2017-09-19] MEDS: MAGNESIUM OXIDE 400 MG TAB PO SCH ×3 (08:39→20:31)
[2017-09-19] MEDS: INSULN ASP PRT/INSULIN ASPART 100 UNIT/ML 10 ML VIAL SQ SCH ×2 (08:39→22:08)
[2017-09-19] MEDS: NITROGLYCERIN OINT 1 INCH/GM PACKET TOPICAL SCH ×4 (08:39→20:32)
[2017-09-19] MEDS: METOPROLOL TARTRATE 50 MG TAB PO SCH ×2 (08:39→20:32)
[2017-09-19] MEDS: SACUBITRIL/VALSARTAN 24 MG-26 MG TABLET PO SCH ×2 (08:39→20:32)
[2017-09-19] MEDS: ISOSORBIDE MONONITRATE ER 60 MG TAB.ER.24H PO SCH (08:39)
[2017-09-19] MEDS ORDERED: ASPIRIN 325 MG TAB PO SCH (09:00)
[2017-09-19] MEDS: cefTRIAXone IN SWFI 1,000 MG/10 ML SYRINGE IVP SCH ×2 (09:06→22:08)
[2017-09-19 11:39] LABS: Glucose,Whole Blood 107 mg/dL (75-99)
--- NOTE | 2017-09-19 12:58 | P.HPIM ---
History of Present Illness H&P Date: 09/19/17 Patient is a pleasant 77-year-old female presenting to the emergency Department with generalized weakness. Symptoms have progressed over the past week. Patient feels fatigued. No isolated area of weakness. No fever. Patient did have a fall and hit her head a few weeks ago. Patient does not believe she had any internal bleeding. Patient was stating that [facility] for rehabilitation she had an episode of confusion where she was and able to recognize her daughter, her daughter and the nurse at [facility] thought that patient had some facial drooping on the right side, EMS were called and patient was sent to emergency room. In the emergency room patient mental status has improved there was no evidence of facial drooping or any localized weakness, computed tomography scan of the brain did not reveal any acute abnormality, she had evidence of urinary tract infection she was started on IV Rocephin, she also had evidence of bilateral pleural effusion, she was admitted to telemetry floor and was started on IV Lasix. Patient has a known history of cardiomyopathy for many years she has been followed by Dr. Wall in that regard, she also has known history of insulin- dependent diabetes mellitus and history of bilateral lower extremity ulcers followed at the wound care clinic Past Medical History Past Medical History: Atrial Fibrillation, Heart Failure, Diabetes Mellitus, Hypertension, Myocardial Infarction ([place]), Pulmonary Embolus ([place]) Additional Past Medical History / Comment(s): hypothyrodism, Kidney failure, neuropathy, wounds to bilateral legs- goes to wound clinic. ATRIAL FIB DUE TO LOW MAGNESIUM, FELL 1016 Last Myocardial Infarction Date:: 1994 History of Any Multi-Drug Resistant Organisms: MRSA, Other MDRO Date of last positivie culture/infection: 04/19/11-MRSA MDRO Source:: MDRO-Right Leg; MRSA-Unknown Past Surgical History: Cholecystectomy, Coronary Bypass/CABG, Heart Catheterization With Stent, Pacemaker, Tonsillectomy Additional Past Surgical History / Comment(s): Defibrillator, pacemaker, breast reduction, varicous veins, wound on right leg Past Anesthesia/Blood Transfusion Reactions: No Reported Reaction Additional Past Anesthesia/Blood Transfusion Reaction / Comment(s): allergic to propofol Date of Last Stent Placement:: 1994 Type of Cardiac Device: Permanent Pacemaker Device Placement Date:: 2011 Smoking Status: Never smoker - Past Family History Mother Family Medical History: CVA/TIA Additional Family Medical History / Comment(s): at age 43 of a stroke Father Family Medical History: Diabetes Mellitus Additional Family Medical History / Comment(s): age 81 Medications and Allergies Home Medications Medication Instructions Recorded Confirmed Type Allopurinol [Zyloprim] 300 mg PO DAILY@0800 04/18/17 09/18/17 History Aspirin [Adult Low Dose Aspirin EC] 81 mg PO DAILY@0800 04/18/17 09/18/17 History Furosemide [Lasix] 40 mg PO DAILY 04/18/17 09/18/17 History Isosorbide Mononitrate ER [Imdur] 60 mg PO DAILY@0800 04/18/17 09/18/17 History Levothyroxine Sodium 25 mcg PO DAILY@1800 04/18/17 09/18/17 History Metoprolol Tartrate [Lopressor] 50 mg PO BID 04/18/17 09/18/17 History Nitroglycerin Sl Tabs [Nitrostat] 0.4 mg SUBLINGUAL Q5M PRN 04/18/17 09/18/17 History Cholecalciferol [Vitamin D3] 1,000 unit PO DAILY@1700 08/11/17 09/18/17 History Ferrous Sulfate [Feosol] 325 mg PO MOWEFR@1700 08/11/17 09/18/17 History Meclizine [Antivert] 25 mg PO Q8H PRN 08/11/17 09/18/17 History Sacubitril/Valsartan [Entresto 24 1 tab PO DAILY@0800 08/11/17 09/18/17 History mg-26 mg Tablet] Spironolactone [Aldactone] 25 mg PO BID 08/11/17 09/18/17 History traZODone HCL 50 mg PO HS@199908/11/17 09/18/17 History Insulin NPL/Insulin Lispro 15 unit SQ HS@199909/04/17 09/18/17 History [humaLOG MIX 75-25 VIAL] Hydrocodone/Acetaminophen [[place] 1 tab PO Q6H PRN #40 tablet 09/05/17 09/18/17 Rx 10-325] Docusate [Colace] 100 mg PO BID@0800,1700 09/18/17 09/18/17 History Furosemide [Lasix] 20 mg PO DAILY@1700 09/18/17 09/18/17 History Insulin NPL/Insulin Lispro 25 unit SQ DAILY@0800 09/18/17 09/18/17 History [humaLOG MIX 75-25 VIAL] Magnesium Oxide [Mag-Ox] 400 mg PO TID@0800,1600,199909/18/17 09/18/17 History Omeprazole [PriLOSEC] 20 mg PO HS 09/18/17 09/18/17 History Polyethylene Glycol 3350 [Miralax] 17 gm PO DAILY@1600 09/18/17 09/18/17 History Pregabalin [Lyrica] 75 mg PO HS@199909/18/17 09/18/17 History Allergies Allergy/AdvReac Type Severity Reaction Status Date / Time Penicillins Allergy Rash/Hives Verified 09/18/17 13:32 propofol Allergy Unknown Verified 09/18/17 13:32 sulfamethoxazole AdvReac Abdominal Verified 09/18/17 13:32 [From Bactrim] Pain trimethoprim [From Bactrim] AdvReac Abdominal Verified 09/18/17 13:32 Pain Physical Exam Vitals: Vital Signs Temp Pulse Pulse Resp BP BP Pulse Ox 09/19/17 12:00 97.4 F L 62 112/56 94 L 09/19/17 08:00 97.7 F 61 16 129/62 96 09/19/17 04:00 97.1 F L 59 L 18 113/57 97 09/19/17 00:00 97.0 F L 60 18 132/65 97 09/18/17 20:00 96.8 F L 61 18 123/62 95 09/18/17 17:30 96.8 F L 60 20 141/65 99 09/18/17 16:53 96.8 F L 85 20 123/66 97 09/18/17 15:15 58 L 16 117/68 98 09/18/17 14:16 61 16 132/61 96 09/18/17 13:09 96.7 F L 59 L 18 150/66 96 Intake and Output 09/18/17 09/19/17 09/19/17 22:59 06:59 14:59 Intake Total 120 Balance 120 Intake: Oral 120 Other: Voiding Method Diaper Diaper Diaper Incontinent Incontinent Incontinent # Voids 1 2 1 # Bowel Movements 0 Weight 84 kg 79.5 kg In general patient is alert and oriented 3 in no apparent distress Neck is supple no JVD no goiter no lymphadenopathy Chest exam reveals a few scattered crackles bilaterally no wheezing Cardiac exam reveals regular heart sounds no gallops no murmurs Abdomen is soft nontender no organomegaly Extremity exam reveals minimal edema no cyanosis or clubbing, there are multiple small healing ulcers in the left pretibial area there is one large ulcer on the right pretibial area Results CBC & Chem 7: 09/18/17 13:20 09/18/17 13:20 Labs: Abnormal Lab Results - Last 24 Hours (Table) 09/18/17 09/18/17 09/18/17 Range/Units 13:12 13:20 13:20 RBC 3.58 L (3.80-5.40) m/uL Hgb 10.5 L (11.4-16.0) gm/dL MCHC 29.9 L (31.0-37.0) g/dL RDW 18.5 H (11.5-15.5) % Lymphocytes # 0.8 L (1.0-4.8) k/uL APTT (22.0-30.0) sec Sodium (137-145) mmol/L Chloride (98-107) mmol/L BUN (7-17) mg/dL Glucose (74-99) mg/dL POC Glucose (mg/dL) 297 H (75-99) mg/dL Alkaline Phosphatase (38-126) U/L Total Creatine Kinase 21 L (30-135) U/L Total Protein (6.3-8.2) g/dL Albumin (3.5-5.0) g/dL Urine Appearance (Clear) Urine Blood (Negative) Urine Nitrite (Negative) Ur Leukocyte Esterase (Negative) Urine RBC (0-5) /hpf Urine WBC (0-5) /hpf Urine WBC Clumps (None) /hpf Urine Bacteria (None) /hpf Hyaline Casts (0-2) /lpf Urine Mucus (None) /hpf 09/18/17 09/18/17 09/18/17 Range/Units 13:20 13:20 14:22 RBC (3.80-5.40) m/uL Hgb (11.4-16.0) gm/dL MCHC (31.0-37.0) g/dL RDW (11.5-15.5) % Lymphocytes # (1.0-4.8) k/uL APTT 20.5 L (22.0-30.0) sec Sodium 135 L (137-145) mmol/L Chloride 97 L (98-107) mmol/L BUN 26 H (7-17) mg/dL Glucose 298 H (74-99) mg/dL POC Glucose (mg/dL) (75-99) mg/dL Alkaline Phosphatase 137 H (38-126) U/L Total Creatine Kinase (30-135) U/L Total Protein 5.8 L (6.3-8.2) g/dL Albumin 3.3 L (3.5-5.0) g/dL Urine Appearance Cloudy H (Clear) Urine Blood Trace H (Negative) Urine Nitrite Positive H (Negative) Ur Leukocyte Esterase Large H (Negative) Urine RBC 9 H (0-5) /hpf Urine WBC >182 H (0-5) /hpf Urine WBC Clumps Many H (None) /hpf Urine Bacteria Occasional H (None) /hpf Hyaline Casts 6 H (0-2) /lpf Urine Mucus Rare H (None) /hpf 09/18/17 09/18/17 09/19/17 Range/Units 17:22 21:04 06:10 RBC (3.80-5.40) m/uL Hgb (11.4-16.0) gm/dL MCHC (31.0-37.0) g/dL RDW (11.5-15.5) % Lymphocytes # (1.0-4.8) k/uL APTT (22.0-30.0) sec Sodium (137-145) mmol/L Chloride (98-107) mmol/L BUN (7-17) mg/dL Glucose (74-99) mg/dL POC Glucose (mg/dL) 312 H 292 H 153 H (75-99) mg/dL Alkaline Phosphatase (38-126) U/L Total Creatine Kinase (30-135) U/L Total Protein (6.3-8.2) g/dL Albumin (3.5-5.0) g/dL Urine Appearance (Clear) Urine Blood (Negative) Urine Nitrite (Negative) Ur Leukocyte Esterase (Negative) Urine RBC (0-5) /hpf Urine WBC (0-5) /hpf Urine WBC Clumps (None) /hpf Urine Bacteria (None) /hpf Hyaline Casts (0-2) /lpf Urine Mucus (None) /hpf 09/19/17 Range/Units 11:38 RBC (3.80-5.40) m/uL Hgb (11.4-16.0) gm/dL MCHC (31.0-37.0) g/dL RDW (11.5-15.5) % Lymphocytes # (1.0-4.8) k/uL APTT (22.0-30.0) sec Sodium (137-145) mmol/L Chloride (98-107) mmol/L BUN (7-17) mg/dL Glucose (74-99) mg/dL POC Glucose (mg/dL) 107 H (75-99) mg/dL Alkaline Phosphatase (38-126) U/L Total Creatine Kinase (30-135) U/L Total Protein (6.3-8.2) g/dL Albumin (3.5-5.0) g/dL Urine Appearance (Clear) Urine Blood (Negative) Urine Nitrite (Negative) Ur Leukocyte Esterase (Negative) Urine RBC (0-5) /hpf Urine WBC (0-5) /hpf Urine WBC Clumps (None) /hpf Urine Bacteria (None) /hpf Hyaline Casts (0-2) /lpf Urine Mucus (None) /hpf Thrombosis Risk Factor Assmnt - Choose All That Apply Each Factor Represents 1 point: Medical pt on bed rest, Obesity (BMI >25), Swollen legs (current) Other Risk Factors: Yes Each Risk Factor Represents 3 Points: Age 75 years or older, History of DVT/PE Thrombosis Risk Factor Assessment Total Risk Factor Score: 9 Thrombosis Risk Factor Assessment Level: High Risk Assessment and Plan Assessment: #1 urinary tract infection #2 confusion with mental status changes with questionable right sided facial drooping that has resolved #3 insulin-dependent diabetes mellitus #4 underlying history of congestive heart failure with cardiomyopathy #5 underlying history of bilateral pretibial lower extremity ulcers At this time patient is maintained on IV antibiotic Rocephin She was started on IV Lasix Cardiology and infectious disease consultation were requested Will check carotid Doppler Will follow during this admission for medical management
--- NOTE | 2017-09-19 14:55 | US ---
EXAMINATION TYPE: US carotid duplex BILAT DATE OF EXAM: 09/19/2017 COMPARISON: NONE CLINICAL HISTORY: possible TIA. Pt states weakness, possible TIA EXAM MEASUREMENTS: RIGHT: Peak Systolic Velocity (PSV) cm/sec ----- Right CCA: 54.0 ----- Right ICA: 69.7 ----- Right ECA: 69.7 ICA/CCA ratio: 1.3 RIGHT: End Diastole cm/sec ----- Right CCA: 8.6 ----- Right ICA: 11.3 ----- Right ECA: 0.0 LEFT: Peak Systolic Velocity (PSV) cm/sec ----- Left CCA: 56.6 ----- Left ICA: 76.8 ----- Left ECA: 108.6 ICA/CCA ratio: 1.4 LEFT: End Diastole cm/sec ----- Left CCA: 9.5 ----- Left ICA: 14.2 ----- Left ECA: 0.0 VERTEBRALS (direction of flow): Right Vertebral: Antegrade Left Vertebral: Antegrade Rhythm: Normal No significant stenosis seen IMPRESSION: There is antegrade flow in the vertebral arteries. The images and measurements suggest 2 0% stenosis in both internal carotid arteries. Criteria for Assigning % of Stenosis / Diameter reduction (Estimation based on the indirect measurements of the internal carotid artery velocities (ICA PSV). 1. Normal (no stenosis)=ICA PSV < 125 cm/s: ratio < 2.0: ICA EDV<40 cm/s. 2. Less than 50% stenosis=ICA PSV < 125 cm/s: ratio < 2.0: ICA EDV<40 cm/s. 3. 50 to 69% stenosis=ICA PSV of 125 to 230 cm/s: ration 2.0 ? 4.0: ICA EDV 40-100 cm/s. 4. Greater than 70% stenosis to near occlusion= ICA PSV > 230 cm/s: ratio > 4.0: ICA EDV > 100 cm/s. 5. Near occlusion= ICA PSV velocities may be low or undetectable: variable ratio and ICA EDV. 6. Total occlusion=unable to detect flow.
[2017-09-19] MEDS: FERROUS SULFATE 325 MG TAB PO SCH (16:15)
[2017-09-19] MEDS: CHOLECALCIFEROL 1,000 UNIT TAB PO SCH (16:15)
[2017-09-19] MEDS: LEVOTHYROXINE 25 MCG TAB PO SCH (16:15)
[2017-09-19 16:40] LABS: Glucose,Whole Blood 153 mg/dL (75-99)
[2017-09-19] MEDS: HYDROcodone/APAP 10-325MG 1 EACH TAB PO PRN (20:31)
[2017-09-19] MEDS: PANTOPRAZOLE 40 MG TABLET PO SCH (20:32)
[2017-09-19] MEDS: traZODone HCL 50 MG TAB PO SCH (20:32)
[2017-09-19 20:36] LABS: Glucose,Whole Blood 235 mg/dL (75-99)
[2017-09-19 21:38] LABS: Creatine Kinase MB 0.8 ng/mL (0.0-2.4); Troponin I 0.03 ng/mL (0.000-0.034)
[2017-09-19] MEDS: PREGABALIN 75 MG CAP PO SCH (22:06)
[2017-09-20 05:42] LABS: Glucose,Whole Blood 132 mg/dL (75-99)
[2017-09-20 06:33] LABS: Anisocytosis Slight; Basophils % (A) 1 %; Eosinophils # (A) 0.1 k/uL (0-0.7); Eosinophils % (A) 2 %; HCT 33.6 % (34.0-46.0); HGB 10.1 gm/dL (11.4-16.0); Hypochromasia Marked; Lymphocytes # (A) 0.8 k/uL (1.0-4.8); Lymphocytes % (A) 13 %; MCH 29.1 pg (25.0-35.0); MCV 96.9 fL (80.0-100.0); Macrocytosis Slight; Monocytes # (A) 0.4 k/uL (0-1.0); Monocytes % (A) 7 %; Neutrophils # (A) 4.8 k/uL (1.3-7.7); Neutrophils % (A) 76 %; Platelet Count 173 k/uL (150-450); RBC 3.47 m/uL (3.80-5.40); RDW 18.8 % (11.5-15.5); WBC 6.4 k/uL (3.8-10.6)
[2017-09-20 06:47] LABS: Calcium 9.7 mg/dL (8.4-10.2); Potassium 4.2 mmol/L (3.5-5.1); Total Bilirubin 0.6 mg/dL (0.2-1.3); Total Protein 5.5 g/dL (6.3-8.2)
[2017-09-20] MEDS: INSULIN ASPART 100 UNIT/ML 1 ML 10 ML VIAL SQ SCH ×4 (06:59→21:03)
--- NOTE | 2017-09-20 08:46 | P.CRDCN ---
History of Present Illness Consult date: 09/20/17 Requesting physician: Giovanny Cesar Consult reason: congestive heart failure Chief complaint: Weakness and tiredness History of present illness: This is a pleasant 77-year-old female with history of coronary artery disease and prior bypass surgery, history of prior PCI, most recently patient underwent unsuccessful angioplasty of a diagonal branch in May 2017, hypertension, hyperlipidemia, paroxysmal atrial fibrillation, ischemic cardiomyopathy with prior AICD, who presents to the hospital with symptoms of weakness. Patient apparently has been getting progressively more weak, she's also been very fatigued according to her. She did experience a fall approximately one week ago. Patient was also noted to have some mild confusion. For this reason she was admitted to the hospital. Upon questioning , patient denies having any difficulty in breathing, no chest discomfort, no palpitations. CAT scan of the brain was performed on arrival here which revealed cerebral atrophy and chronic small vessel ischemia with no acute intracranial abnormality. Chest x-ray showed bilateral pleural effusions without change as compared with prior. EKG shows a sinus bradycardia with T- wave inversion in the lateral leads as well as nonspecific ST-T wave changes. But pressure on arrival here 150/60, heart rate in the 50s, 96% on room air. She is afebrile. The pressure this morning 122/60 with a heart rate in the 60s. White blood cell count 6.4, hemoglobin 10.1, platelet count 173, sodium 138, potassium 4.2, BUN 27, creatinine 1.0. Blood sugar on arrival to 97. Magnesium 1.6, alk phos 137. BNP level 15,900. Troponin 0.014, 0.030. Urinalysis, large amount of leukocyte esterase, positive nitrates, trace of blood, many white blood cells. She denies any urinary frequency or dysuria. Cardiology consultation was requested because of elevated BNP level. Past Medical History Past Medical History: Atrial Fibrillation, Heart Failure, Diabetes Mellitus, Hypertension, Myocardial Infarction (CT), Pulmonary Embolus (PE) Additional Past Medical History / Comment(s): hypothyrodism, Kidney failure, neuropathy, wounds to bilateral legs- goes to wound clinic. ATRIAL FIB DUE TO LOW MAGNESIUM, FELL THANKS1016 Last Myocardial Infarction Date:: 1994 History of Any Multi-Drug Resistant Organisms: MRSA, Other MDRO Date of last positivie culture/infection: 04/19/11-MRSA MDRO Source:: MDRO-Right Leg; MRSA-Unknown Past Surgical History: Cholecystectomy, Coronary Bypass/CABG, Heart Catheterization With Stent, Pacemaker, Tonsillectomy Additional Past Surgical History / Comment(s): Defibrillator, pacemaker, breast reduction, varicous veins, wound on right leg Past Anesthesia/Blood Transfusion Reactions: No Reported Reaction Additional Past Anesthesia/Blood Transfusion Reaction / Comment(s): allergic to propofol Date of Last Stent Placement:: 1994 Type of Cardiac Device: Permanent Pacemaker Device Placement Date:: 2011 Smoking Status: Never smoker - Past Family History Mother Family Medical History: CVA/TIA Additional Family Medical History / Comment(s): at age 43 of a stroke Father Family Medical History: Diabetes Mellitus Additional Family Medical History / Comment(s): age 81 Medications and Allergies Home Medications Medication Instructions Recorded Confirmed Type Allopurinol [Zyloprim] 300 mg PO DAILY@0800 04/18/17 09/18/17 History Aspirin [Adult Low Dose Aspirin EC] 81 mg PO DAILY@0800 04/18/17 09/18/17 History Furosemide [Lasix] 40 mg PO DAILY 04/18/17 09/18/17 History Isosorbide Mononitrate ER [Imdur] 60 mg PO DAILY@0800 04/18/17 09/18/17 History Levothyroxine Sodium 25 mcg PO DAILY@1800 04/18/17 09/18/17 History Metoprolol Tartrate [Lopressor] 50 mg PO BID 04/18/17 09/18/17 History Nitroglycerin Sl Tabs [Nitrostat] 0.4 mg SUBLINGUAL Q5M PRN 04/18/17 09/18/17 History Cholecalciferol [Vitamin D3] 1,000 unit PO DAILY@1700 08/11/17 09/18/17 History Ferrous Sulfate [Feosol] 325 mg PO MOWEFR@1700 08/11/17 09/18/17 History Meclizine [Antivert] 25 mg PO Q8H PRN 08/11/17 09/18/17 History Sacubitril/Valsartan [Entresto 24 1 tab PO DAILY@0800 08/11/17 09/18/17 History mg-26 mg Tablet] Spironolactone [Aldactone] 25 mg PO BID 08/11/17 09/18/17 History traZODone HCL 50 mg PO HS@199908/11/17 09/18/17 History Insulin NPL/Insulin Lispro 15 unit SQ HS@199909/04/17 09/18/17 History [humaLOG MIX 75-25 VIAL] Hydrocodone/Acetaminophen [[place] 1 tab PO Q6H PRN #40 tablet 09/05/17 09/18/17 Rx 10-325] Docusate [Colace] 100 mg PO BID@0800,1700 09/18/17 09/18/17 History Furosemide [Lasix] 20 mg PO DAILY@1700 09/18/17 09/18/17 History Insulin NPL/Insulin Lispro 25 unit SQ DAILY@0800 09/18/17 09/18/17 History [humaLOG MIX 75-25 VIAL] Magnesium Oxide [Mag-Ox] 400 mg PO TID@0800,1600,199909/18/17 09/18/17 History Omeprazole [PriLOSEC] 20 mg PO HS 09/18/17 09/18/17 History Polyethylene Glycol 3350 [Miralax] 17 gm PO DAILY@1600 09/18/17 09/18/17 History Pregabalin [Lyrica] 75 mg PO HS@199909/18/17 09/18/17 History Allergies Allergy/AdvReac Type Severity Reaction Status Date / Time Penicillins Allergy Rash/Hives Verified 09/18/17 13:32 propofol Allergy Unknown Verified 09/18/17 13:32 sulfamethoxazole AdvReac Abdominal Verified 09/18/17 13:32 [From Bactrim] Pain trimethoprim [From Bactrim] AdvReac Abdominal Verified 09/18/17 13:32 Pain Physical Exam Vitals: Vital Signs Temp Pulse Resp BP Pulse Ox 09/20/17 07:45 97.1 F L 63 12 122/65 98 09/20/17 03:55 97.0 F L 63 18 113/58 98 09/19/17 23:30 97.5 F L 71 20 100/51 93 L 09/19/17 20:40 97.5 F L 122 H 18 117/69 99 09/19/17 16:00 97.6 F 66 20 157/69 97 09/19/17 12:00 97.4 F L 62 20 112/56 94 L Intake and Output 09/19/17 09/20/17 09/20/17 22:59 06:59 14:59 Intake Total 0 240 Output Total 400 300 Balance -400 -300 240 Intake: Oral 0 240 Output: Urine 400 Stool 300 Other: Voiding Method Bedside Commode Bedside Commode Diaper Diaper Incontinent Incontinent # Voids 2 1 # Bowel Movements 1 Weight 78.4 kg PHYSICAL EXAMINATION: HEENT: [Head is atraumatic, normocephalic. Pupils equal, round. Neck is supple. There is no elevated jugular venous pressure.] HEART EXAMINATION: Heart S1 and S2 systolic murmur is heard. CHEST EXAMINATION:[ Lungs are clear with mild diminished air entry to the bases . No chest wall tenderness is noted on palpation or with deep breathing.] ABDOMEN: [ Soft, nontender. Bowel sounds are heard. No organomegaly noted]. EXTREMITIES:[ 2+ peripheral pulses with no evidence of peripheral edema and no calf tenderness noted]. Lateral release wraps are in place. NEUROLOGIC [patient is awake, alert and oriented -3.] . Results 09/20/17 06:07 09/20/17 06:07 Cardiac Enzymes 09/19/17 09/20/17 Range/Units 20:47 06:07 AST 88 H (14-36) U/L CK-MB (CK-2) 0.8 (0.0-2.4) ng/mL Troponin I 0.030 (0.000-0.034) ng/mL CBC 09/20/17 Range/Units 06:07 WBC 6.4 (3.8-10.6) k/uL RBC 3.47 L (3.80-5.40) m/uL Hgb 10.1 L (11.4-16.0) gm/dL Hct 33.6 L (34.0-46.0) % Plt Count 173 (150-450) k/uL Comprehensive Metabolic Panel 09/20/17 Range/Units 06:07 Sodium 138 (137-145) mmol/L Potassium 4.2 (3.5-5.1) mmol/L Chloride 95 L (98-107) mmol/L Carbon Dioxide 35 H (22-30) mmol/L BUN 27 H (7-17) mg/dL Creatinine 1.10 H (0.52-1.04) mg/dL Glucose 142 H (74-99) mg/dL Calcium 9.7 (8.4-10.2) mg/dL AST 88 H (14-36) U/L ALT 38 (9-52) U/L Alkaline Phosphatase 137 H (38-126) U/L Total Protein 5.5 L (6.3-8.2) g/dL Albumin 3.0 L (3.5-5.0) g/dL Current Medications Generic Name Dose Route Start Last Admin Trade Name Freq PRN Reason Stop Dose Admin Hydrocodone Bitart/Acetaminophen 1 each 09/18/17 18:26 09/19/17 20:31 [place] 10 PO 1 each Q6H PRN Administration MODERATE Pain Allopurinol 300 mg 09/19/17 08:00 09/19/17 08:39 Zyloprim PO 300 mg DAILY@0800 [facility] Administration Aspirin 81 mg 09/19/17 08:00 09/19/17 08:38 Aspirin PO 81 mg DAILY@0800 [facility] Administration Ceftriaxone Sodium 1,000 mg 09/19/17 09:00 09/19/17 22:08 Rocephin IVP 1,000 mg Q12HR CLAUDIO Administration Cholecalciferol 1,000 unit 09/19/17 17:00 09/19/17 16:15 Vitamin D3 PO 1,000 unit DAILY@1700 [facility] Administration Docusate Sodium 100 mg 09/19/17 08:00 09/19/17 16:15 Colace PO 100 mg BID@0800,1700 [facility] Administration Ferrous Sulfate 325 mg 09/19/17 17:00 09/19/17 16:15 Feosol PO 325 mg MOWEFR@1700 [facility] Administration Furosemide 40 mg 09/19/17 00:00 09/19/17 23:34 Lasix IV 40 mg Q8HR CLAUDIO Administration Insulin Aspart 15 unit 09/18/17 20:00 09/19/17 22:08 Novolog Mix 70-30 Vial SQ 15 unit HS@2000 [facility] Administration Insulin Aspart 25 unit 09/19/17 08:00 09/19/17 08:39 Novolog Mix 70-30 Vial SQ 25 unit DAILY@0800 [facility] Administration Insulin Aspart 0 unit 09/18/17 21:00 09/20/17 06:59 Novolog SQ 1 unit ACHS [facility] Administration Protocol Isosorbide Mononitrate 60 mg 09/19/17 08:00 09/19/17 08:39 Imdur PO 60 mg DAILY@0800 [facility] Administration Levothyroxine Sodium 25 mcg 09/19/17 18:00 09/19/17 16:15 Synthroid PO 25 mcg DAILY@1800 [facility] Administration Magnesium Oxide 400 mg 09/18/17 20:00 09/19/17 20:31 Mag-Ox PO 400 mg TID@0800,1599,1999 [facility] Administration Meclizine HCl 25 mg 09/18/17 18:26 Antivert PO Q8H PRN Nausea Metoprolol Tartrate 50 mg 09/18/17 21:00 09/19/17 20:32 Lopressor PO 50 mg BID [facility] Administration Nitroglycerin 1 inch 09/18/17 18:00 09/19/17 20:32 Nitro-Bid Oint TOPICAL 1 inch QID [facility] Administration Nitroglycerin 0.4 mg 09/18/17 18:26 Nitrostat SUBLINGUAL Q5M PRN Chest Pain Pantoprazole Sodium 40 mg 09/18/17 21:00 09/19/17 20:32 Protonix PO 40 mg HS [facility] Administration Polyethylene Glycol 17 gm 09/19/17 16:00 09/19/17 08:39 Miralax PO 17 gm DAILY@1600 [facility] Administration Pregabalin 75 mg 09/18/17 20:00 09/19/17 22:06 Lyrica PO 75 mg HS@1999 [facility] Administration Sacubitril/Valsartan 1 each 09/18/17 21:00 09/19/17 20:32 Entresto 24 Mg-26 Mg Tablet PO 1 each BID [facility] Administration Sodium Chloride 10 ml 09/18/17 21:00 09/19/17 22:08 Saline Flush IV 10 ml BID [facility] Administration Spironolactone 25 mg 09/18/17 21:00 09/19/17 23:34 Aldactone PO 25 mg BID [facility] Administration Trazodone HCl 50 mg 09/18/17 20:00 09/19/17 20:32 Desyrel PO 50 mg HS@1999 [facility] Administration Intake and Output 09/19/17 09/20/17 09/20/17 22:59 06:59 14:59 Intake Total 0 240 Output Total 400 300 Balance -400 -300 240 Intake: Oral 0 240 Output: Urine 400 Stool 300 Other: Voiding Method Bedside Commode Bedside Commode Diaper Diaper Incontinent Incontinent # Voids 2 1 # Bowel Movements 1 Weight 78.4 kg 09/20/17 06:07 09/20/17 06:07 EKG Interpretations (text) EKG shows sinus bradycardia with lateral T-wave inversion and nonspecific ST-T wave changes Assessment and Plan Plan: Assessment and plan #1 symptoms of progressive weakness and fatigue with mild confusion. Positive UTI, asymptomatic. CT of the brain did not reveal any acute changes. Patient is afebrile #2 systolic congestive heart failure acute on chronic #3 known history of coronary artery disease with prior bypass surgery and stent placements, most recently patient had a failed angioplasty in May of last year #4 hypertension #5 hyperlipidemia #6 diabetes #7 ischemic cardio myopathy with prior AICD #8 paroxysmal atrial fibrillation #9 hypomagnesemia ,runs of nonsustained ventricular tachycardia noted #10 chronic anemia #11 thyroidism. Plan Echocardiogram with Doppler study has been requested. We'll replace the patient 's magnesium. She has also been initiated on IV Lasix 40 mg every 8 hourly. Her weight is down 6 kg from admission. Discontinue the Nitropaste, continue the metoprolol, Aldactone, Entresto. Continue to monitor intake and output along with daily weights. DNP note has been reviewed, I agree with a documented findings and plan of care. Patient was seen and examined.
[2017-09-20] MEDS: cefTRIAXone IN SWFI 1,000 MG/10 ML SYRINGE IVP SCH (09:02)
[2017-09-20] MEDS: INSULN ASP PRT/INSULIN ASPART 100 UNIT/ML 10 ML VIAL SQ SCH ×2 (09:02→21:03)
[2017-09-20] MEDS: FUROSEMIDE 10 MG/ML 4 ML VIAL IV SCH ×2 (09:02→17:46)
[2017-09-20] MEDS: ASPIRIN 81 MG PO SCH (09:03)
[2017-09-20] MEDS: ALLOPURINOL 300 MG TAB PO SCH (09:03)
[2017-09-20] MEDS: DOCUSATE 100 MG CAP PO SCH ×2 (09:03→17:47)
[2017-09-20] MEDS: ISOSORBIDE MONONITRATE ER 60 MG TAB.ER.24H PO SCH (09:04)
[2017-09-20] MEDS: MAGNESIUM OXIDE 400 MG TAB PO SCH ×3 (09:04→19:55)
[2017-09-20] MEDS: SACUBITRIL/VALSARTAN 24 MG-26 MG TABLET PO SCH ×2 (09:05→19:55)
[2017-09-20] MEDS: METOPROLOL TARTRATE 50 MG TAB PO SCH ×2 (09:05→19:55)
[2017-09-20] MEDS: SPIRONOLACTONE 25 MG TAB PO SCH ×2 (09:06→19:55)
[2017-09-20] MEDS: MAGNESIUM SULFATE-D5W PMX 1 GM in DEXTROSE/WATER 1 100ML.BAG IVPB SCH ×2 (09:49→11:15)
[2017-09-20 11:20] LABS: Glucose,Whole Blood 153 mg/dL (75-99)
--- NOTE | 2017-09-20 11:30 | P.PN ---
Subjective Progress Note Date: 09/20/17 Patient is a pleasant 77-year-old female presenting to the emergency Department with generalized weakness. Symptoms have progressed over the past week. Patient feels fatigued. No isolated area of weakness. No fever. Patient did have a fall and hit her head a few weeks ago. Patient does not believe she had any internal bleeding. Patient was stating that [facility] for rehabilitation she had an episode of confusion where she was and able to recognize her daughter, her daughter and the nurse at [facility] thought that patient had some facial drooping on the right side, EMS were called and patient was sent to emergency room. In the emergency room patient mental status has improved there was no evidence of facial drooping or any localized weakness, computed tomography scan of the brain did not reveal any acute abnormality, she had evidence of urinary tract infection she was started on IV Rocephin, she also had evidence of bilateral pleural effusion, she was admitted to telemetry floor and was started on IV Lasix. Patient has a known history of cardiomyopathy for many years she has been followed by Dr. Wall in that regard, she also has known history of insulin- dependent diabetes mellitus and history of bilateral lower extremity ulcers followed at the wound care clinic 09/20/2017 patient had multiple episodes of nonsustained ventricle tachycardia. Was found have a magnesium of 1.6. Patient is now receiving supplement for magnesium. Cardiology was notified. Thyroids level was normal on admission. Patient being treated for UTI. Patient denies any chest pain during the episodes of V. tach. Patient denies any nausea or vomiting. Denies a bowel movement changes or urinary symptoms. Patient does admit to having a small chest pains when she presented to the hospital. Cardiology did discontinue the Nitropaste this morning. Objective - Vital Signs Vital signs: Vital Signs Temp 97.1 F L 09/20/17 07:45 Pulse 63 09/20/17 07:45 Resp 12 09/20/17 07:45 BP 122/65 09/20/17 07:45 Pulse Ox 98 09/20/17 08:35 Intake & Output 09/19/17 09/20/17 09/20/17 18:59 06:59 18:59 Intake Total 360 0 240 Output Total 400 300 Balance -40 -300 240 Weight 78.4 kg Intake: Oral 360 0 240 Output: Urine 400 Stool 300 Other: Voiding Method Diaper Bedside Commode Bedside Commode Incontinent Diaper Diaper Incontinent Incontinent # Voids 1 1 # Bowel Movements 1 - Exam Head normocephalic Neck supple Lungs clear to auscultation bilaterally no wheezing or crackles Heart regular rate and rhythm S1-S2, no rub or gallop Abdomen is soft nontender nondistended positive bowel sounds no hepatosplenomegaly Extremities no edema. Legs are bandaged dressing is clean and dry Neuro alert and orientated to 3 - Labs CBC & Chem 7: 09/20/17 06:07 09/20/17 06:07 Labs: Abnormal Lab Results - Last 24 Hours (Table) 09/18/17 09/19/17 09/19/17 Range/Units 13:20 11:38 16:38 RBC (3.80-5.40) m/uL Hgb (11.4-16.0) gm/dL Hct (34.0-46.0) % MCHC (31.0-37.0) g/dL RDW (11.5-15.5) % Lymphocytes # (1.0-4.8) k/uL Chloride (98-107) mmol/L Carbon Dioxide (22-30) mmol/L BUN (7-17) mg/dL Creatinine (0.52-1.04) mg/dL Glucose (74-99) mg/dL POC Glucose (mg/dL) 107 H 153 H (75-99) mg/dL Hemoglobin A1c 9.5 H (4.0-6.0) % AST (14-36) U/L Alkaline Phosphatase (38-126) U/L Total Creatine Kinase (30-135) U/L Total Protein (6.3-8.2) g/dL Albumin (3.5-5.0) g/dL 09/19/17 09/19/17 09/20/17 Range/Units 20:35 20:47 05:41 RBC (3.80-5.40) m/uL Hgb (11.4-16.0) gm/dL Hct (34.0-46.0) % MCHC (31.0-37.0) g/dL RDW (11.5-15.5) % Lymphocytes # (1.0-4.8) k/uL Chloride (98-107) mmol/L Carbon Dioxide (22-30) mmol/L BUN (7-17) mg/dL Creatinine (0.52-1.04) mg/dL Glucose (74-99) mg/dL POC Glucose (mg/dL) 235 H 132 H (75-99) mg/dL Hemoglobin A1c (4.0-6.0) % AST (14-36) U/L Alkaline Phosphatase (38-126) U/L Total Creatine Kinase 22 L (30-135) U/L Total Protein (6.3-8.2) g/dL Albumin (3.5-5.0) g/dL 09/20/17 09/20/17 Range/Units 06:07 06:07 RBC 3.47 L (3.80-5.40) m/uL Hgb 10.1 L (11.4-16.0) gm/dL Hct 33.6 L (34.0-46.0) % MCHC 30.0 L (31.0-37.0) g/dL RDW 18.8 H (11.5-15.5) % Lymphocytes # 0.8 L (1.0-4.8) k/uL Chloride 95 L (98-107) mmol/L Carbon Dioxide 35 H (22-30) mmol/L BUN 27 H (7-17) mg/dL Creatinine 1.10 H (0.52-1.04) mg/dL Glucose 142 H (74-99) mg/dL POC Glucose (mg/dL) (75-99) mg/dL Hemoglobin A1c (4.0-6.0) % AST 88 H (14-36) U/L Alkaline Phosphatase 137 H (38-126) U/L Total Creatine Kinase (30-135) U/L Total Protein 5.5 L (6.3-8.2) g/dL Albumin 3.0 L (3.5-5.0) g/dL Assessment and Plan Assessment: 1. Altered mental status changes and generalized weakness: Likely a metabolic encephalopathy secondary to UTI 2. Questionable right-sided facial droop with confusion now resolved. No evidence of stroke on computed tomography scan of the brain. Echo pending. Carotid Doppler shows ICA 20% stenosis bilaterally 3. Acute on chronic systolic CHF exacerbation. Echo pending patient currently on IV Lasix. Cardiology following. Continue Lasix, and Trostel and Aldactone 4. History of ischemic cardiomyopathy status post AICD 5. History of bilateral pretibial lower extremity ulcers. Infectious disease consulted 6. UTI. Check urine culture. Continue IV Rocephin. 7. Episodes of nonsustained ventricular tachycardia. Cardiology notified. Magnesium being replaced. Thyroid level within normal range. Continue metoprolol 8. Mildly elevated LFTs: No abdominal pain. Possibly related to fluid congestion in the liver. Patient had a liver ultrasound completed in 2016 showing evidence of a lap cholecystectomy no significant abnormality. 9. Acute kidney injury likely related to diuretics. Monitor closely. Creatinine at 1.10 10. History of coronary artery disease with prior bypass surgery and stents 11. Hypomagnesium, patient receiving supplement 12. Paroxysmal atrial fibrillation: Not on anticoagulation due to frequent falls 13. Iron deficiency anemia: Continue iron supplement I performed an examination of the patient and discussed their management with the physician Manager Track. I have reviewed the Physician Manager Track's notes and agree with the documented findings and plan of care
--- NOTE | 2017-09-20 13:04 | ECHOF ---
Referral Reason:possible TIA MEASUREMENTS -------- HEIGHT: 157.5 cm WEIGHT: 78.0 kg BP: 113/58 IVSd: 1.0 cm (0.6 - 1.1) LVIDd: 6.2 cm (3.9 - 5.3) LVPWd: 1.0 cm (0.6 - 1.1) IVSs: 1.3 cm LVIDs: 5.3 cm LVPWs: 1.5 cm LAESV Index (A-L): 35.25 ml/m Ao Diam: 2.8 cm (2.0 - 3.7) AV Cusp: 2.1 cm (1.5 - 2.6) LA Diam: 4.5 cm (2.7 - 3.8) MV EXCURSION: 11.106 mm (> 18.000) MV EF SLOPE: 58 mm/s (70 - 150) EPSS: 1.9 cm MV E Sumit: 0.75 m/s MV DecT: 188 ms MV A Sumit: 0.71 m/s MV E/A Ratio: 1.05 RAP: 5.00 mmHg RVSP: 43.57 mmHg FINDINGS -------- Paced rhythm. This was a technically adequate study. The left ventricle is moderately dilated. Left ventricular wall thickness is normal. There is sev ere global hypokinesis of LV . Overall left ventricular systolic function is severely impaired with , an EF between 20 - 25 %. The right ventricle is normal in size and function. LA is moderately dilated 34-39 ml/m2 The right atrium is normal in size. Aortic valve is trileaflet and is mildly thickened. The mitral valve leaflets are mildly thickened. Mild mitral regurgitation is present. Severe tricuspid regurgitation present. There is mild pulmonary hypertension. The right ventricul ar systolic pressure, as measured by Doppler, is 43.57mmHg. Trace/mild (physiologic) pulmonic regurgitation. The aortic root size is normal. The pericardium is normal. CONCLUSIONS -------- 1. Paced rhythm. 2. This was a technically adequate study. 3. The left ventricle is moderately dilated. 4. Left ventricular wall thickness is normal. 5. There is severe global hypokinesis of LV . 6. Overall left ventricular systolic function is severely impaired with, an EF between 20 - 25 %. 7. The right ventricle is normal in size and function. 8. LA is moderately dilated 34-39 ml/m2 9. The right atrium is normal in size. 10. Aortic valve is trileaflet and is mildly thickened. 11. The mitral valve leaflets are mildly thickened. 12. Mild mitral regurgitation is present. 13. Severe tricuspid regurgitation present. 14. There is mild pulmonary hypertension. 15. The right ventricular systolic pressure, as measured by Doppler, is 43.57mmHg. 16. Trace/mild (physiologic) pulmonic regurgitation. 17. The aortic root size is normal. 18. The pericardium is normal. CASH APPLICATIONS MANAGER: Maira Aguilar RDCS
[2017-09-20] MEDS ORDERED: DEXTROSE 5% IN WATER 100 ML with AMIODARONE 150 MG IV ONE (16:58)
[2017-09-20 17:02] LABS: Glucose,Whole Blood 92 mg/dL (75-99)
[2017-09-20] MEDS: CHOLECALCIFEROL 1,000 UNIT TAB PO SCH (17:46)
[2017-09-20] MEDS: POLYETHYLENE GLYCOL 3350 17 GM POWD.PACK PO SCH ×2 (17:46→17:53)
[2017-09-20] MEDS: LEVOTHYROXINE 25 MCG TAB PO SCH (17:47)
[2017-09-20] MEDS: AMIODARONE 450 MG in DEXTROSE 5% IN WATER 250 ML IV SCH ×2 (18:29)
[2017-09-20] MEDS: HYDROcodone/APAP 10-325MG 1 EACH TAB PO PRN (19:54)
[2017-09-20] MEDS: PREGABALIN 75 MG CAP PO SCH (19:54)
[2017-09-20] MEDS: traZODone HCL 50 MG TAB PO SCH (19:55)
[2017-09-20] MEDS: PANTOPRAZOLE 40 MG TABLET PO SCH (19:55)
[2017-09-20 20:54] LABS: Glucose,Whole Blood 197 mg/dL (75-99)
[2017-09-21] MEDS: FUROSEMIDE 10 MG/ML 4 ML VIAL IV SCH ×3 (00:35→16:14)
[2017-09-21] MEDS: AMIODARONE 450 MG in DEXTROSE 5% IN WATER 250 ML IV SCH ×6 (00:36→21:03)
[2017-09-21 06:26] LABS: Anisocytosis Slight; Basophils % (A) 0 %; Eosinophils # (A) 0.3 k/uL (0-0.7); Eosinophils % (A) 4 %; HGB 9.9 gm/dL (11.4-16.0); Hypochromasia Marked; Lymphocytes # (A) 1.2 k/uL (1.0-4.8); Lymphocytes % (A) 16 %; MCH 29.7 pg (25.0-35.0); Macrocytosis Slight; Mean Platelet Volume 7.4; Monocytes # (A) 0.5 k/uL (0-1.0); Monocytes % (A) 7 %; Neutrophils # (A) 5.3 k/uL (1.3-7.7); Neutrophils % (A) 71 %; Platelet Count 178 k/uL (150-450); RBC 3.33 m/uL (3.80-5.40); RDW 17.4 % (11.5-15.5); WBC 7.6 k/uL (3.8-10.6)
[2017-09-21 06:34] LABS: Glucose,Whole Blood 189 mg/dL (75-99)
[2017-09-21 06:45] LABS: Albumin 2.9 g/dL (3.5-5.0); Calcium 9.5 mg/dL (8.4-10.2); Potassium 4.2 mmol/L (3.5-5.1); Total Bilirubin 0.5 mg/dL (0.2-1.3); Total Protein 5.4 g/dL (6.3-8.2)
[2017-09-21] MEDS: INSULIN ASPART 100 UNIT/ML 1 ML 10 ML VIAL SQ SCH ×5 (06:53→21:03)
--- NOTE | 2017-09-21 07:22 | CONS ---
CONSULTATION DATE OF SERVICE: 09/20/2017. REASON FOR CONSULTATION: Urinary tract infection and right lower extremity wound. HISTORY OF PRESENT ILLNESS: The patient is a 77-year-old female well known to my service from previous admissions in this facility. The patient is currently residing at the [facility] for rehabilitation. The patient was brought into the ER at [facility] on September 18 with an episode of confusion. The patient was unable to recognize her daughter as well as the nurse at [facility]. Also thought the patient had some facial drooping on the right side. EMS was called and the patient sent to the ER for further evaluation. By the time the patient got to the ER, no evidence of facial drooping. The patient did have a CT of the brain that was negative for any acute bleed. The patient was noticed to have a positive UA. She was started on Rocephin 1 g q.12 hours. She has been subsequently admitted to the hospital for further evaluation of the same as the patient also had evidence of bilateral pleural effusion. 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 Patient denies any worsening pain in the right leg area. No surrounding swelling or redness and very minimal drainage. The patient denies having any chest pain. Minimal shortness of breath. Occasional cough. No abdominal pain. No nausea, vomiting, or any diarrhea. REVIEW OF SYSTEMS: CONSTITUTIONAL: Positive for weakness. No fever. EYES: No complaint. ENT: No complaint. RESPIRATORY: As per HPI. CARDIOVASCULAR: No complaint. GENITOURINARY: As per HPI. GASTROINTESTINAL: No complaint. MUSCULOSKELETAL: No complaint. INTEGUMENTARY: As per HPI. PSYCHOLOGICAL: No complaint. ENDOCRINE: No complaint. NEUROLOGIC: No complaint. PAST MEDICAL HISTORY: Significant for hypertension, hyperlipidemia, diabetes mellitus, atrial fibrillation, heart failure, coronary artery disease, and currently wound the right leg. PAST SURGICAL HISTORY: Cholecystectomy, coronary artery bypass grafting, PTCA with stent, tonsillectomy , and pacemaker placement. SOCIAL HISTORY: No history of smoking, drinking or drug use. FAMILY HISTORY: Mother with history of CVA, TIA and at age of 43 from a stroke. Father with history of diabetes. ALLERGIES: To PENICILLIN, PROPOFOL, SULFAMETHOXAZOLE. MEDICATIONS: Include the patient is currently on [place], Zyloprim, amiodarone, aspirin, Rocephin 1 g q.12h. She is on vitamin D3, Colace, iron sulfate, Lasix, NovoLog sliding scale , Imdur, Synthroid, Mag oxide, Antivert, Lopressor, Nitrostat, Protonix, MiraLAX, Lyrica, Aldactone, and Desyrel. EXAMINATION: Blood pressure is 117/57 with a pulse of 52, temperature of 97. She is 93% on room air. General description is an elderly female lying in bed in no distress. No tachypnea or accessory muscle of respiration use. HEENT: Shows slight pallor. No scleral icterus. Oral mucosa membrane is dry. NECK: Trachea central. No thyromegaly. LUNGS: Unlabored breathing, decreased breath sounds in the bases. No wheeze or crackle. HEART: S1, S2. Regular rate and rhythm. ABDOMEN: Soft, no tenderness. No organomegaly Right leg wound with very minimal slough tissue. No surrounding erythema or any foul smelling drainage. NEUROLOGICAL: Patient is awake, alert, oriented x3. Mood and affect normal. LABS: Hemoglobin is 10.1, white count 6.4 with a BUN of 27, creatinine 1.10. Urine is positive with large leukocyte esterases, many WBC with clumps with cultures currently pending. No blood cultures were done. Chest x-ray: Perfusion without changes compared to the last exam. DIAGNOSTIC IMPRESSION/PLAN: 1. Patient admitted to the hospital with mental status changes which is likely multifactorial in this patient with possibility of a urinary tract infection , likely from enteric gram-negative pathogen. 2. Right lower extremity wound with no evidence of any cellulitis. PLAN: 1. Rocephin was switched to 1 g daily to call for urinary tract infection from enteric gram-negative pathogen. 2. Right leg wound recommended Hydrofera Blue, however, it is not available at this facility. Santyl was recommended, however, the patient refusing as it caused burning in the past. Hence, will be treated with Aquacel silver dressing to be changed q.48h. 3. We will follow up on the clinical condition and culture to further adjust medication if needed. Thank you for this consultation. Will follow this patient along with you. MMODL / IJN: [id number] / [facility]
[2017-09-21] MEDS: ALLOPURINOL 300 MG TAB PO SCH (09:37)
[2017-09-21] MEDS: ASPIRIN 81 MG PO SCH (09:37)
[2017-09-21] MEDS: ISOSORBIDE MONONITRATE ER 60 MG TAB.ER.24H PO SCH (09:38)
[2017-09-21] MEDS: METOPROLOL TARTRATE 50 MG TAB PO SCH ×2 (09:38→21:02)
[2017-09-21] MEDS: MAGNESIUM OXIDE 400 MG TAB PO SCH ×3 (09:38→21:02)
[2017-09-21] MEDS: DOCUSATE 100 MG CAP PO SCH ×2 (09:38→17:30)
[2017-09-21] MEDS: SACUBITRIL/VALSARTAN 24 MG-26 MG TABLET PO SCH ×2 (09:39→21:02)
[2017-09-21] MEDS: SPIRONOLACTONE 25 MG TAB PO SCH ×2 (09:39→21:01)
[2017-09-21] MEDS: INSULN ASP PRT/INSULIN ASPART 100 UNIT/ML 10 ML VIAL SQ SCH ×2 (09:54→21:02)
[2017-09-21] MEDS: cefTRIAXone IN SWFI 1,000 MG/10 ML SYRINGE IVP SCH (10:08)
[2017-09-21 11:47] LABS: Glucose,Whole Blood 196 mg/dL (75-99)
--- NOTE | 2017-09-21 11:53 | P.PN ---
Subjective Progress Note Date: 09/21/17 Patient is a pleasant 77-year-old female presenting to the emergency Department with generalized weakness. Symptoms have progressed over the past week. Patient feels fatigued. No isolated area of weakness. No fever. Patient did have a fall and hit her head a few weeks ago. Patient does not believe she had any internal bleeding. Patient was stating that [facility] for rehabilitation she had an episode of confusion where she was and able to recognize her daughter, her daughter and the nurse at [facility] thought that patient had some facial drooping on the right side, EMS were called and patient was sent to emergency room. In the emergency room patient mental status has improved there was no evidence of facial drooping or any localized weakness, computed tomography scan of the brain did not reveal any acute abnormality, she had evidence of urinary tract infection she was started on IV Rocephin, she also had evidence of bilateral pleural effusion, she was admitted to telemetry floor and was started on IV Lasix. Patient has a known history of cardiomyopathy for many years she has been followed by Dr. Wall in that regard, she also has known history of insulin- dependent diabetes mellitus and history of bilateral lower extremity ulcers followed at the wound care clinic 09/20/2017 patient had multiple episodes of nonsustained ventricle tachycardia. Was found have a magnesium of 1.6. Patient is now receiving supplement for magnesium. Cardiology was notified. Thyroids level was normal on admission. Patient being treated for UTI. Patient denies any chest pain during the episodes of V. tach. Patient denies any nausea or vomiting. Denies a bowel movement changes or urinary symptoms. Patient does admit to having a small chest pains when she presented to the hospital. Cardiology did discontinue the Nitropaste this morning. on 09/21/2017 patient is alert and oriented, in no distress sitting up in a chair Patient denies any chest pain during the episodes of V. tach. Patient denies any nausea or vomiting. Denies a bowel movement changes or urinary symptoms. Patient was evaluated by cardiology yesterday, she was started on amiodarone drip., She is also receiving ceftriaxone for treatment of urinary tract infection Objective - Vital Signs Vital signs: Vital Signs Temp 97.0 F L 09/21/17 09:34 Pulse 56 L 09/21/17 09:34 Resp 16 09/21/17 09:34 BP 107/58 09/21/17 09:34 Pulse Ox 100 09/21/17 09:34 Intake & Output 09/20/17 09/21/17 09/21/17 18:59 06:59 18:59 Intake Total 600 250.000 180 Output Total 700 Balance -100 250.000 180 Weight 78.4 kg 74 kg Intake: Intake, IV Titration 250.000 Amount Amiodarone 450 mg In 250.000 Dextrose 5% in Water 250 ml @ 1 MG/MIN 33.33 mls/ hr IV .Q7H31M [facility] Rx#: [id number] Oral 600 180 Output: Urine 700 Other: Voiding Method Bedside Commode Diaper Diaper Diaper Incontinent Incontinent Incontinent # Voids 2 - Exam In general patient is alert and oriented 3 in no apparent distress Neck is supple no JVD no goiter no lymphadenopathy Chest exam reveals a few scattered crackles bilaterally no wheezing Cardiac exam reveals regular heart sounds no gallops no murmurs Abdomen is soft nontender no organomegaly Extremity exam reveals minimal edema no cyanosis or clubbing, there are multiple small healing ulcers in the left pretibial area there is one large ulcer on the right pretibial area - Labs CBC & Chem 7: 09/21/17 06:03 09/21/17 06:03 Labs: Abnormal Lab Results - Last 24 Hours (Table) 09/20/17 09/21/17 09/21/17 Range/Units 20:52 06:03 06:03 RBC 3.33 L (3.80-5.40) m/uL Hgb 9.9 L (11.4-16.0) gm/dL Hct 33.0 L (34.0-46.0) % MCHC 30.0 L (31.0-37.0) g/dL RDW 17.4 H (11.5-15.5) % Sodium 133 L (137-145) mmol/L Chloride 95 L (98-107) mmol/L Carbon Dioxide 33 H (22-30) mmol/L BUN 32 H (7-17) mg/dL Creatinine 1.50 H (0.52-1.04) mg/dL Glucose 160 H (74-99) mg/dL POC Glucose (mg/dL) 197 H (75-99) mg/dL AST 62 H (14-36) U/L Total Protein 5.4 L (6.3-8.2) g/dL Albumin 2.9 L (3.5-5.0) g/dL 09/21/17 09/21/17 Range/Units 06:33 11:39 RBC (3.80-5.40) m/uL Hgb (11.4-16.0) gm/dL Hct (34.0-46.0) % MCHC (31.0-37.0) g/dL RDW (11.5-15.5) % Sodium (137-145) mmol/L Chloride (98-107) mmol/L Carbon Dioxide (22-30) mmol/L BUN (7-17) mg/dL Creatinine (0.52-1.04) mg/dL Glucose (74-99) mg/dL POC Glucose (mg/dL) 189 H 196 H (75-99) mg/dL AST (14-36) U/L Total Protein (6.3-8.2) g/dL Albumin (3.5-5.0) g/dL Microbiology - Last 24 Hours (Table) 09/20/17 12:18 Urine Culture - Preliminary Urine,Catheterized Assessment and Plan Assessment: #1 urinary tract infection #2 confusion with mental status changes with questionable right sided facial drooping that has resolved #3 insulin-dependent diabetes mellitus #4 underlying history of congestive heart failure with cardiomyopathy #5 underlying history of bilateral pretibial lower extremity ulcers #6 cardiac arrhythmia started on IV amiodarone by cardiology #7 bilateral lower extremity ulcers in the pretibial area right much worse than left At this time patient is maintained on IV antibiotic Rocephin She was started on IV Lasix Cardiology and infectious disease consultation were requested Will check carotid Doppler Will follow during this admission for medical management
--- NOTE | 2017-09-21 13:19 | P.PN ---
Subjective Progress Note Date: 09/21/17 This is a pleasant 77-year-old female with history of coronary artery disease and prior bypass surgery, history of prior PCI, most recently patient underwent unsuccessful angioplasty of a diagonal branch in May 2017, hypertension, hyperlipidemia, paroxysmal atrial fibrillation, ischemic cardiomyopathy with prior AICD, who presents to the hospital with symptoms of weakness. Patient apparently has been getting progressively more weak, she's also been very fatigued according to her. She did experience a fall approximately one week ago. Patient was also noted to have some mild confusion. For this reason she was admitted to the hospital. Upon questioning , patient denies having any difficulty in breathing, no chest discomfort, no palpitations. CAT scan of the brain was performed on arrival here which revealed cerebral atrophy and chronic small vessel ischemia with no acute intracranial abnormality. Chest x-ray showed bilateral pleural effusions without change as compared with prior. EKG shows a sinus bradycardia with T- wave inversion in the lateral leads as well as nonspecific ST-T wave changes. But pressure on arrival here 150/60, heart rate in the 50s, 96% on room air. She is afebrile. The pressure this morning 122/60 with a heart rate in the 60s. White blood cell count 6.4, hemoglobin 10.1, platelet count 173, sodium 138, potassium 4.2, BUN 27, creatinine 1.0. Blood sugar on arrival to 97. Magnesium 1.6, alk phos 137. BNP level 15,900. Troponin 0.014, 0.030. Urinalysis, large amount of leukocyte esterase, positive nitrates, trace of blood, many white blood cells. She denies any urinary frequency or dysuria. Cardiology consultation was requested because of elevated BNP level. 09/21/2017 Patient was seen and examined this morning, much more awake today. Diuresed well through the night last night, weight down another 4 kg today. Creatinine today 1.5. Magnesium 2.2. Blood pressure 108/60 with a heart rate in the 50s. Laboratory data reviewed, hemoglobin 9.9, platelet count 178. Sodium 133, BUN 32, creatinine 1.5. BNP was repeated, 23,300. We will also request a repeat chest x-ray be performed today. Objective - Vital Signs Vital signs: Vital Signs Temp 97.0 F L 09/21/17 09:34 Pulse 56 L 09/21/17 09:34 Resp 16 09/21/17 09:34 BP 107/58 09/21/17 09:34 Pulse Ox 100 09/21/17 09:34 Intake & Output 09/20/17 09/21/17 09/21/17 18:59 06:59 18:59 Intake Total 600 250.000 180 Output Total 700 Balance -100 250.000 180 Weight 78.4 kg 74 kg Intake: Intake, IV Titration 250.000 Amount Amiodarone 450 mg In 250.000 Dextrose 5% in Water 250 ml @ 1 MG/MIN 33.33 mls/ hr IV .Q7H31M [facility] Rx#: [id number] Oral 600 180 Output: Urine 700 Other: Voiding Method Bedside Commode Diaper Diaper Diaper Incontinent Incontinent Incontinent # Voids 2 - Exam PHYSICAL EXAMINATION: HEENT: [Head is atraumatic, normocephalic. Pupils equal, round. Neck is supple. There is no elevated jugular venous pressure.] HEART EXAMINATION: Heart S1 and S2 systolic murmur is heard. CHEST EXAMINATION:[ Lungs are clear with mild diminished air entry to the bases . No chest wall tenderness is noted on palpation or with deep breathing.] ABDOMEN: [ Soft, nontender. Bowel sounds are heard. No organomegaly noted]. EXTREMITIES:[ 2+ peripheral pulses with no evidence of peripheral edema and no calf tenderness noted]. Lateral release wraps are in place. NEUROLOGIC [patient is awake, alert and oriented -3.] . - Labs CBC & Chem 7: 09/21/17 06:03 09/21/17 06:03 Labs: Abnormal Lab Results - Last 24 Hours (Table) 09/20/17 09/21/17 09/21/17 Range/Units 20:52 06:03 06:03 RBC 3.33 L (3.80-5.40) m/uL Hgb 9.9 L (11.4-16.0) gm/dL Hct 33.0 L (34.0-46.0) % MCHC 30.0 L (31.0-37.0) g/dL RDW 17.4 H (11.5-15.5) % Sodium 133 L (137-145) mmol/L Chloride 95 L (98-107) mmol/L Carbon Dioxide 33 H (22-30) mmol/L BUN 32 H (7-17) mg/dL Creatinine 1.50 H (0.52-1.04) mg/dL Glucose 160 H (74-99) mg/dL POC Glucose (mg/dL) 197 H (75-99) mg/dL AST 62 H (14-36) U/L Total Protein 5.4 L (6.3-8.2) g/dL Albumin 2.9 L (3.5-5.0) g/dL 09/21/17 09/21/17 Range/Units 06:33 11:39 RBC (3.80-5.40) m/uL Hgb (11.4-16.0) gm/dL Hct (34.0-46.0) % MCHC (31.0-37.0) g/dL RDW (11.5-15.5) % Sodium (137-145) mmol/L Chloride (98-107) mmol/L Carbon Dioxide (22-30) mmol/L BUN (7-17) mg/dL Creatinine (0.52-1.04) mg/dL Glucose (74-99) mg/dL POC Glucose (mg/dL) 189 H 196 H (75-99) mg/dL AST (14-36) U/L Total Protein (6.3-8.2) g/dL Albumin (3.5-5.0) g/dL Microbiology - Last 24 Hours (Table) 09/20/17 12:18 Urine Culture - Preliminary Urine,Catheterized Assessment and Plan Plan: Assessment and plan #1 symptoms of progressive weakness and fatigue with mild confusion. Positive UTI, asymptomatic. CT of the brain did not reveal any acute changes. Patient is afebrile #2 systolic congestive heart failure acute on chronic #3 known history of coronary artery disease with prior bypass surgery and stent placements, most recently patient had a failed angioplasty in May of last year #4 hypertension #5 hyperlipidemia #6 diabetes #7 ischemic cardio myopathy with prior AICD #8 paroxysmal atrial fibrillation #9 hypomagnesemia ,runs of nonsustained ventricular tachycardia noted #10 chronic anemia #11 thyroidism. Plan Echocardiogram with Doppler study was performed which revealed an ejection fraction of 20-25%, severe tricuspid regurg present. Repeat BNP level 23,300. We would recommend to continue current dose of IV Lasix for 24 hours. Repeat chest x-ray in the morning. DNP note has been reviewed, I agree with a documented findings and plan of care. Patient was seen and examined.
--- NOTE | 2017-09-21 14:37 | XR ---
EXAMINATION TYPE: XR chest 1V DATE OF EXAM: 09/21/2017 CLINICAL HISTORY: Difficulty breathing and CHF progress study. TECHNIQUE: Single AP portable upright view of the chest is obtained. COMPARISON: Chest x-ray from 3 days earlier FINDINGS: Mediastinal clips and sternal wires is redemonstrated. There is persistent cardiomegaly wi th dual lead pacemaker/AICD. There is persistent central vascular congestion. Small bilateral pleural effusions are not well visualized on current study but no lateral view was performed. Osseous struct ures are demineralized. Degenerative change bilateral glenohumeral joints is again seen. Overall low lung volumes is redemonstrated. IMPRESSION: There is persistent low lung volumes and cardiomegaly with central vascular congestion, c ontinued CHF exacerbation needs to BE considered. Correlate clinically.
[2017-09-21 16:56] LABS: Glucose,Whole Blood 209 mg/dL (75-99)
[2017-09-21] MEDS: POLYETHYLENE GLYCOL 3350 17 GM POWD.PACK PO SCH ×2 (17:30→17:34)
[2017-09-21] MEDS: CHOLECALCIFEROL 1,000 UNIT TAB PO SCH (17:30)
[2017-09-21] MEDS: LEVOTHYROXINE 25 MCG TAB PO SCH (17:30)
[2017-09-21] MEDS: FERROUS SULFATE 325 MG TAB PO SCH (17:31)
[2017-09-21 20:36] LABS: Glucose,Whole Blood 221 mg/dL (75-99)
[2017-09-21] MEDS: traZODone HCL 50 MG TAB PO SCH (21:02)
[2017-09-21] MEDS: PANTOPRAZOLE 40 MG TABLET PO SCH (21:02)
[2017-09-21] MEDS: PREGABALIN 75 MG CAP PO SCH (21:02)
--- NOTE | 2017-09-21 22:47 | PN ---
PROGRESS NOTE DATE OF SERVICE: 09/21/2017. REASON FOR FOLLOWUP VISIT: Positive wound and urinary tract infection. INTERVAL HISTORY: The patient is afebrile. She is breathing comfortably. Denies significant chest pain. No cough. No abdominal pain. No nausea, vomiting, or abdominal pain. Pain in the right leg area. EXAMINATION: Blood pressure 138/57 with a pulse of 85, temperature of 96, she is 98% on 2 L nasal cannula. General description is an elderly female lying in bed in no distress respiratory system unlabored breathing, clear to auscultation anteriorly. Heart S1, S2. Regular rate and rhythm. Abdomen soft. No tenderness Right leg wound is currently dressed with no drainage on the dressing. LABS: Hemoglobin 10.2, white count of 10.6, BUN of 30 Urine culture currently pending. DIAGNOSTIC IMPRESSION AND PLAN: 1-Patient admitted to the hospital with mental status changes which is likely multifactorial the patient Did have significant positive UA and underlying UTI not entirely excluded currently on Rocephin were waiting for the urine cultures to finalize 2- right leg venous stasis ulcer currently being treated with Aquacel silver dressing will recommend switching to Hydrofera Blue on discharge. Continue supportive care. MMODL / IJN: [id number] / DAMIAN
[2017-09-22] MEDS: FUROSEMIDE 10 MG/ML 4 ML VIAL IV SCH ×2 (01:09→08:04)
[2017-09-22 06:36] LABS: Anisocytosis Slight; Basophils % (A) 0 %; Eosinophils # (A) 0.3 k/uL (0-0.7); Eosinophils % (A) 3 %; HCT 36.7 % (34.0-46.0); HGB 10.5 gm/dL (11.4-16.0); Hypochromasia Marked; Lymphocytes # (A) 0.9 k/uL (1.0-4.8); Lymphocytes % (A) 10 %; MCH 28.9 pg (25.0-35.0); MCHC 28.8 g/dL (31.0-37.0); MCV 100.5 fL (80.0-100.0); Macrocytosis Moderate; Monocytes # (A) 0.5 k/uL (0-1.0); Monocytes % (A) 5 %; Neutrophils % (A) 80 %; Platelet Count 182 k/uL (150-450); RBC 3.65 m/uL (3.80-5.40); WBC 8.7 k/uL (3.8-10.6)
[2017-09-22 06:38] LABS: Glucose,Whole Blood 107 mg/dL (75-99)
[2017-09-22] MEDS: INSULIN ASPART 100 UNIT/ML 1 ML 10 ML VIAL SQ SCH ×4 (06:45→21:38)
[2017-09-22 06:46] LABS: Albumin 3.2 g/dL (3.5-5.0); Calcium 9.6 mg/dL (8.4-10.2); Potassium 4.3 mmol/L (3.5-5.1); Total Bilirubin 0.5 mg/dL (0.2-1.3); Total Protein 5.9 g/dL (6.3-8.2)
[2017-09-22] MEDS: SACUBITRIL/VALSARTAN 24 MG-26 MG TABLET PO SCH ×2 (08:04→21:37)
[2017-09-22] MEDS: ALLOPURINOL 300 MG TAB PO SCH (08:04)
[2017-09-22] MEDS: ASPIRIN 81 MG PO SCH (08:04)
[2017-09-22] MEDS: MAGNESIUM OXIDE 400 MG TAB PO SCH ×3 (08:04→21:37)
[2017-09-22] MEDS: METOPROLOL TARTRATE 50 MG TAB PO SCH ×2 (08:04→21:37)
[2017-09-22] MEDS: HYDROcodone/APAP 10-325MG 1 EACH TAB PO PRN ×2 (08:04→23:34)
[2017-09-22] MEDS: SPIRONOLACTONE 25 MG TAB PO SCH ×2 (08:04→21:37)
[2017-09-22] MEDS: DOCUSATE 100 MG CAP PO SCH ×2 (08:04→16:30)
[2017-09-22] MEDS: ISOSORBIDE MONONITRATE ER 60 MG TAB.ER.24H PO SCH (08:04)
[2017-09-22] MEDS: INSULN ASP PRT/INSULIN ASPART 100 UNIT/ML 10 ML VIAL SQ SCH ×2 (09:18→21:38)
[2017-09-22] MEDS: cefTRIAXone IN SWFI 1,000 MG/10 ML SYRINGE IVP SCH (09:19)
[2017-09-22 11:24] LABS: Glucose,Whole Blood 145 mg/dL (75-99)
[2017-09-22] MEDS ORDERED: LACTULOSE 20 GM/30 ML CUP PO ONE (11:51)
--- NOTE | 2017-09-22 11:57 | P.PN ---
Subjective Progress Note Date: 09/22/17 Patient is a pleasant 77-year-old female presenting to the emergency Department with generalized weakness. Symptoms have progressed over the past week. Patient feels fatigued. No isolated area of weakness. No fever. Patient did have a fall and hit her head a few weeks ago. Patient does not believe she had any internal bleeding. Patient was stating that [facility] she had an episode of confusion where she was and able to recognize her daughter, her daughter and the nurse at [facility] thought that patient had some facial drooping on the right side, EMS were called and patient was sent to emergency room. In the emergency room patient mental status has improved there was no evidence of facial drooping or any localized weakness, computed tomography scan of the brain did not reveal any acute abnormality, she had evidence of urinary tract infection she was started on IV Rocephin, she also had evidence of bilateral pleural effusion, she was admitted to telemetry floor and was started on IV Lasix. Patient has a known history of cardiomyopathy for many years she has been followed by Dr. Wall in that regard, she also has known history of insulin- dependent diabetes mellitus and history of bilateral lower extremity ulcers followed at the wound care clinic 09/20/2017 patient had multiple episodes of nonsustained ventricle tachycardia. Was found have a magnesium of 1.6. Patient is now receiving supplement for magnesium. Cardiology was notified. Thyroids level was normal on admission. Patient being treated for UTI. Patient denies any chest pain during the episodes of V. tach. Patient denies any nausea or vomiting. Denies a bowel movement changes or urinary symptoms. Patient does admit to having a small chest pains when she presented to the hospital. Cardiology did discontinue the Nitropaste this morning. 09/22/2017 patient lying in bed comfortably. Reports still some shortness of breath at times. Feels very weak. Also complaining of constipation. Last bowel movement was on Tuesday. She's had no further episodes of nonsustained V. tach. Amiodarone discontinued by cardiology. Patient denies any chest pain. Denies any nausea vomiting. Denies any burning with urination. Objective - Vital Signs Vital signs: Vital Signs Temp 96 F L 09/22/17 11:32 Pulse 64 09/22/17 11:32 Resp 16 09/22/17 11:32 BP 106/58 09/22/17 11:32 Pulse Ox 100 09/22/17 11:32 Intake & Output 09/21/17 09/22/17 09/22/17 18:59 06:59 18:59 Intake Total 903.831 200 Balance 903.831 200 Weight 78 kg Intake: Intake, IV Titration 143.831 Amount Amiodarone 450 mg In 143.831 Dextrose 5% in Water 250 ml @ 1 MG/MIN 33.33 mls/ hr IV .Q7H31M [facility] Rx#: [id number] Oral 760 200 Other: Voiding Method Diaper Diaper Diaper Incontinent Incontinent Incontinent # Voids 1 1 - Exam Head normocephalic Neck supple Lungs crackles left lower lobe Heart regular rate and rhythm S1-S2, no rub or gallop Abdomen is soft nontender nondistended positive bowel sounds no hepatosplenomegaly Extremities no edema. Legs are bandaged dressing is clean and dry Neuro alert and orientated to 3 - Labs CBC & Chem 7: 09/22/17 06:02 09/22/17 06:02 Labs: Abnormal Lab Results - Last 24 Hours (Table) 09/21/17 09/21/17 09/22/17 Range/Units 16:42 20:34 06:02 RBC 3.65 L (3.80-5.40) m/uL Hgb 10.5 L (11.4-16.0) gm/dL MCV 100.5 H (80.0-100.0) fL MCHC 28.8 L (31.0-37.0) g/dL RDW 19.0 H (11.5-15.5) % Lymphocytes # 0.9 L (1.0-4.8) k/uL Sodium (137-145) mmol/L Chloride (98-107) mmol/L Carbon Dioxide (22-30) mmol/L BUN (7-17) mg/dL Creatinine (0.52-1.04) mg/dL POC Glucose (mg/dL) 209 H 221 H (75-99) mg/dL AST (14-36) U/L Alkaline Phosphatase (38-126) U/L Total Protein (6.3-8.2) g/dL Albumin (3.5-5.0) g/dL 09/22/17 09/22/17 09/22/17 Range/Units 06:02 06:34 11:21 RBC (3.80-5.40) m/uL Hgb (11.4-16.0) gm/dL MCV (80.0-100.0) fL MCHC (31.0-37.0) g/dL RDW (11.5-15.5) % Lymphocytes # (1.0-4.8) k/uL Sodium 136 L (137-145) mmol/L Chloride 93 L (98-107) mmol/L Carbon Dioxide 33 H (22-30) mmol/L BUN 38 H (7-17) mg/dL Creatinine 1.40 H (0.52-1.04) mg/dL POC Glucose (mg/dL) 107 H 145 H (75-99) mg/dL AST 39 H (14-36) U/L Alkaline Phosphatase 135 H (38-126) U/L Total Protein 5.9 L (6.3-8.2) g/dL Albumin 3.2 L (3.5-5.0) g/dL Microbiology - Last 24 Hours (Table) 09/20/17 12:18 Urine Culture - Final Urine,Catheterized Assessment and Plan Assessment: 1. Altered mental status changes and generalized weakness: Likely a metabolic encephalopathy secondary to UTI 2. Questionable right-sided facial droop with confusion now resolved. No evidence of stroke on computed tomography scan of the brain. Carotid Doppler shows ICA 20% stenosis bilaterally. Echo shows EF of 20-25% and severe tricuspid regurgitation 3. Acute on chronic systolic CHF exacerbation. Echo pending patient currently on IV Lasix. Cardiology following. Continue Lasix, entresto, and Aldactone 4. History of ischemic cardiomyopathy status post AICD 5. History of bilateral pretibial lower extremity ulcers. Infectious disease following. continue wound care 6. UTI. urine culture no growth. Continue IV Rocephin. 7. Episodes of nonsustained ventricular tachycardia. Cardiology notified. Magnesium being replaced. Thyroid level within normal range. Continue metoprolol. Patient has been taken off of the IV amiodarone 8. Mildly elevated LFTs: No abdominal pain. Possibly related to fluid congestion in the liver. Patient had a liver ultrasound completed in 2016 showing evidence of a lap cholecystectomy no significant abnormality. LFTs are trending down 9. Acute on Chronic kidney disease, stage 3. Acute kidney injury likely related to diuretics. Monitor closely. 10. History of coronary artery disease with prior bypass surgery and stents 11. Hypomagnesium, patient receiving supplement 12. Paroxysmal atrial fibrillation: Not on anticoagulation due to frequent falls 13. Iron deficiency anemia: Continue iron supplement I performed an examination of the patient and discussed their management with the physician Prevocational/Rehabilitation Counselor. I have reviewed the Physician Prevocational/Rehabilitation Counselor's notes and agree with the documented findings and plan of care
--- NOTE | 2017-09-22 12:33 | P.PN ---
Subjective Progress Note Date: 09/22/17 This is a pleasant 77-year-old female with history of coronary artery disease and prior bypass surgery, history of prior PCI, most recently patient underwent unsuccessful angioplasty of a diagonal branch in May 2017, hypertension, hyperlipidemia, paroxysmal atrial fibrillation, ischemic cardiomyopathy with prior AICD, who presents to the hospital with symptoms of weakness. Patient apparently has been getting progressively more weak, she's also been very fatigued according to her. She did experience a fall approximately one week ago. Patient was also noted to have some mild confusion. For this reason she was admitted to the hospital. Upon questioning , patient denies having any difficulty in breathing, no chest discomfort, no palpitations. CAT scan of the brain was performed on arrival here which revealed cerebral atrophy and chronic small vessel ischemia with no acute intracranial abnormality. Chest x-ray showed bilateral pleural effusions without change as compared with prior. EKG shows a sinus bradycardia with T- wave inversion in the lateral leads as well as nonspecific ST-T wave changes. But pressure on arrival here 150/60, heart rate in the 50s, 96% on room air. She is afebrile. The pressure this morning 122/60 with a heart rate in the 60s. White blood cell count 6.4, hemoglobin 10.1, platelet count 173, sodium 138, potassium 4.2, BUN 27, creatinine 1.0. Blood sugar on arrival to 97. Magnesium 1.6, alk phos 137. BNP level 15,900. Troponin 0.014, 0.030. Urinalysis, large amount of leukocyte esterase, positive nitrates, trace of blood, many white blood cells. She denies any urinary frequency or dysuria. Cardiology consultation was requested because of elevated BNP level. 09/21/2017 Patient was seen and examined this morning, much more awake today. Diuresed well through the night last night, weight down another 4 kg today. Creatinine today 1.5. Magnesium 2.2. Blood pressure 108/60 with a heart rate in the 50s. Laboratory data reviewed, hemoglobin 9.9, platelet count 178. Sodium 133, BUN 32, creatinine 1.5. BNP was repeated, 23,300. We will also request a repeat chest x-ray be performed today. 09/22/2017 Patient seen and examined this morning, feeling much better overall. She is diuresing, however her weight indicates that it's up today. We will recheck that weight. hemaglobin 10.5, potassium 4.3, BUN 38, creatinine 1.4. Objective - Vital Signs Vital signs: Vital Signs Temp 96 F L 09/22/17 11:32 Pulse 64 09/22/17 11:32 Resp 16 09/22/17 11:32 BP 106/58 09/22/17 11:32 Pulse Ox 100 09/22/17 11:32 Intake & Output 09/21/17 09/22/17 09/22/17 18:59 06:59 18:59 Intake Total 903.831 200 Balance 903.831 200 Weight 78 kg Intake: Intake, IV Titration 143.831 Amount Amiodarone 450 mg In 143.831 Dextrose 5% in Water 250 ml @ 1 MG/MIN 33.33 mls/ hr IV .Q7H31M [facility] Rx#: [id number] Oral 760 200 Other: Voiding Method Diaper Diaper Diaper Incontinent Incontinent Incontinent # Voids 1 1 - Exam PHYSICAL EXAMINATION: HEENT: [Head is atraumatic, normocephalic. Pupils equal, round. Neck is supple. There is no elevated jugular venous pressure.] HEART EXAMINATION: Heart S1 and S2 systolic murmur is heard. CHEST EXAMINATION:[ Lungs are clear with mild diminished air entry to the bases . No chest wall tenderness is noted on palpation or with deep breathing.] ABDOMEN: [ Soft, nontender. Bowel sounds are heard. No organomegaly noted]. EXTREMITIES:[ 2+ peripheral pulses with no evidence of peripheral edema and no calf tenderness noted]. Lateral release wraps are in place. NEUROLOGIC [patient is awake, alert and oriented -3.] . - Labs CBC & Chem 7: 09/22/17 06:02 09/22/17 06:02 Labs: Abnormal Lab Results - Last 24 Hours (Table) 09/21/17 09/21/17 09/22/17 Range/Units 16:42 20:34 06:02 RBC 3.65 L (3.80-5.40) m/uL Hgb 10.5 L (11.4-16.0) gm/dL MCV 100.5 H (80.0-100.0) fL MCHC 28.8 L (31.0-37.0) g/dL RDW 19.0 H (11.5-15.5) % Lymphocytes # 0.9 L (1.0-4.8) k/uL Sodium (137-145) mmol/L Chloride (98-107) mmol/L Carbon Dioxide (22-30) mmol/L BUN (7-17) mg/dL Creatinine (0.52-1.04) mg/dL POC Glucose (mg/dL) 209 H 221 H (75-99) mg/dL AST (14-36) U/L Alkaline Phosphatase (38-126) U/L Total Protein (6.3-8.2) g/dL Albumin (3.5-5.0) g/dL 09/22/17 09/22/17 09/22/17 Range/Units 06:02 06:34 11:21 RBC (3.80-5.40) m/uL Hgb (11.4-16.0) gm/dL MCV (80.0-100.0) fL MCHC (31.0-37.0) g/dL RDW (11.5-15.5) % Lymphocytes # (1.0-4.8) k/uL Sodium 136 L (137-145) mmol/L Chloride 93 L (98-107) mmol/L Carbon Dioxide 33 H (22-30) mmol/L BUN 38 H (7-17) mg/dL Creatinine 1.40 H (0.52-1.04) mg/dL POC Glucose (mg/dL) 107 H 145 H (75-99) mg/dL AST 39 H (14-36) U/L Alkaline Phosphatase 135 H (38-126) U/L Total Protein 5.9 L (6.3-8.2) g/dL Albumin 3.2 L (3.5-5.0) g/dL Microbiology - Last 24 Hours (Table) 09/20/17 12:18 Urine Culture - Final Urine,Catheterized Assessment and Plan Plan: Assessment and plan #1 symptoms of progressive weakness and fatigue with mild confusion. Positive UTI, asymptomatic. CT of the brain did not reveal any acute changes. Patient is afebrile #2 systolic congestive heart failure acute on chronic #3 known history of coronary artery disease with prior bypass surgery and stent placements, most recently patient had a failed angioplasty in May of last year #4 hypertension #5 hyperlipidemia #6 diabetes #7 ischemic cardio myopathy with prior AICD #8 paroxysmal atrial fibrillation #9 hypomagnesemia ,runs of nonsustained ventricular tachycardia noted #10 chronic anemia #11 thyroidism. Plan Echocardiogram with Doppler study was performed which revealed an ejection fraction of 20-25%, severe tricuspid regurg present. We'll discontinue the IV Lasix today and start the patient on oral diuretics. He weight, check lytes BUN creatinine and daily weight in the morning. DNP note has been reviewed, I agree with a documented findings and plan of care. Patient was seen and examined.
[2017-09-22] MEDS: COLLAGENASE 250 UNIT/GM OINTMENT 30 GM TUBE TOPICAL SCH (13:36)
[2017-09-22] MEDS: FUROSEMIDE 40 MG TAB PO SCH (16:30)
[2017-09-22] MEDS: POLYETHYLENE GLYCOL 3350 17 GM POWD.PACK PO SCH (16:30)
[2017-09-22] MEDS: CHOLECALCIFEROL 1,000 UNIT TAB PO SCH (16:30)
[2017-09-22 16:40] LABS: Glucose,Whole Blood 135 mg/dL (75-99)
[2017-09-22 16:44] VITALS: BMI 31.4
[2017-09-22] MEDS: LEVOTHYROXINE 25 MCG TAB PO SCH (17:20)
[2017-09-22 21:24] LABS: Glucose,Whole Blood 172 mg/dL (75-99)
[2017-09-22] MEDS: PANTOPRAZOLE 40 MG TABLET PO SCH (21:37)
[2017-09-22] MEDS: PREGABALIN 75 MG CAP PO SCH (21:37)
[2017-09-22] MEDS: traZODone HCL 50 MG TAB PO SCH (21:37)
--- NOTE | 2017-09-22 22:09 | PN ---
PROGRESS NOTE DATE OF SERVICE: 09/22/2017 REASON FOR FOLLOWUP: 1. Right leg wound. 2. UTI. INTERVAL HISTORY: The patient is afebrile. She is breathing comfortably. Denies significant chest pain or cough. No abdominal pain or any pain in the right leg area. PHYSICAL EXAMINATION: Blood pressure 124/60 with a pulse of 53, temperature of 96.8. She is 100% on 2 L nasal cannula. General description is an elderly female up in the chair in no distress. RESPIRATORY SYSTEM: Unlabored breathing. Clear to auscultation anteriorly. HEART: S1, S2. Regular rate and rhythm. ABDOMEN: Soft. No tenderness. Right leg wound with more slough tissue. No surrounding swelling, redness. Some drainage but no foul smell. LABS: Hemoglobin is 10.5, white count 8.7 with a BUN of 38, creatinine 1.40. DIAGNOSTIC IMPRESSION AND PLAN: 1. Patient with a right leg wound with no evidence of cellulitis. Local wound care was switched over to Santyl followed by moist dressing to be changed daily. 2. Urinary tract infection, currently covered with Rocephin. Her urine is negative for any resistant pathogen. Continue supportive care. MMODL / IJN: [id number] /
[2017-09-23 05:44] LABS: Glucose,Whole Blood 70 mg/dL (75-99)
[2017-09-23] MEDS: INSULIN ASPART 100 UNIT/ML 1 ML 10 ML VIAL SQ SCH ×4 (05:52→21:37)
[2017-09-23 06:07] LABS: Anisocytosis Slight; Basophils % (A) 0 %; Eosinophils # (A) 0.2 k/uL (0-0.7); Eosinophils % (A) 2 %; HCT 30.3 % (34.0-46.0); Hypochromasia Marked; Lymphocytes # (A) 0.7 k/uL (1.0-4.8); Lymphocytes % (A) 9 %; MCHC 29.8 g/dL (31.0-37.0); MCV 97.4 fL (80.0-100.0); Macrocytosis Slight; Mean Platelet Volume 8.1; Monocytes # (A) 0.5 k/uL (0-1.0); Monocytes % (A) 7 %; Neutrophils # (A) 5.8 k/uL (1.3-7.7); Neutrophils % (A) 79 %; Platelet Count 155 k/uL (150-450); RBC 3.11 m/uL (3.80-5.40); RDW 18.4 % (11.5-15.5); WBC 7.3 k/uL (3.8-10.6)
[2017-09-23 06:28] LABS: Albumin 2.6 g/dL (3.5-5.0); Calcium 9.3 mg/dL (8.4-10.2); Potassium 4.3 mmol/L (3.5-5.1); Total Bilirubin 0.5 mg/dL (0.2-1.3)
[2017-09-23] MEDS: HYDROcodone/APAP 10-325MG 1 EACH TAB PO PRN ×2 (08:09→21:35)
[2017-09-23] MEDS: ALLOPURINOL 300 MG TAB PO SCH (08:10)
[2017-09-23] MEDS: FUROSEMIDE 40 MG TAB PO SCH ×2 (08:10→16:32)
[2017-09-23] MEDS: SPIRONOLACTONE 25 MG TAB PO SCH ×2 (08:10→21:36)
[2017-09-23] MEDS: cefTRIAXone IN SWFI 1,000 MG/10 ML SYRINGE IVP SCH (08:10)
[2017-09-23] MEDS: SACUBITRIL/VALSARTAN 24 MG-26 MG TABLET PO SCH ×2 (08:10→21:36)
[2017-09-23] MEDS: ISOSORBIDE MONONITRATE ER 60 MG TAB.ER.24H PO SCH (08:11)
[2017-09-23] MEDS: MAGNESIUM OXIDE 400 MG TAB PO SCH ×3 (08:11→21:35)
[2017-09-23] MEDS: ASPIRIN 81 MG PO SCH (08:11)
[2017-09-23] MEDS: METOPROLOL TARTRATE 50 MG TAB PO SCH ×2 (08:11→21:36)
[2017-09-23] MEDS: INSULN ASP PRT/INSULIN ASPART 100 UNIT/ML 10 ML VIAL SQ SCH (08:12)
[2017-09-23] MEDS: DOCUSATE 100 MG CAP PO SCH ×2 (08:12→16:32)
[2017-09-23] MEDS: COLLAGENASE 250 UNIT/GM OINTMENT 30 GM TUBE TOPICAL SCH (08:12)
--- NOTE | 2017-09-23 10:53 | P.PN ---
Subjective Progress Note Date: 09/23/17 Patient is a pleasant 77-year-old female presenting to the emergency Department with generalized weakness. Symptoms have progressed over the past week. Patient feels fatigued. No isolated area of weakness. No fever. Patient did have a fall and hit her head a few weeks ago. Patient does not believe she had any internal bleeding. Patient was stating that [facility] for [facility] she had an episode of confusion where she was and able to recognize her daughter, her daughter and the nurse at [facility] thought that patient had some facial drooping on the right side, EMS were called and patient was sent to emergency room. In the emergency room patient mental status has improved there was no evidence of facial drooping or any localized weakness, computed tomography scan of the brain did not reveal any acute abnormality, she had evidence of urinary tract infection she was started on IV Rocephin, she also had evidence of bilateral pleural effusion, she was admitted to telemetry floor and was started on IV Lasix. Patient has a known history of cardiomyopathy for many years she has been followed by Dr. Wall in that regard, she also has known history of insulin- dependent diabetes mellitus and history of bilateral lower extremity ulcers followed at the wound care clinic 09/20/2017 patient had multiple episodes of nonsustained ventricle tachycardia. Was found have a magnesium of 1.6. Patient is now receiving supplement for magnesium. Cardiology was notified. Thyroids level was normal on admission. Patient being treated for UTI. Patient denies any chest pain during the episodes of V. tach. Patient denies any nausea or vomiting. Denies a bowel movement changes or urinary symptoms. Patient does admit to having a small chest pains when she presented to the hospital. Cardiology did discontinue the Nitropaste this morning. 09/22/2017 patient lying in bed comfortably. Reports still some shortness of breath at times. Feels very weak. Also complaining of constipation. Last bowel movement was on Tuesday. She's had no further episodes of nonsustained V. tach. Amiodarone discontinued by cardiology. Patient denies any chest pain. Denies any nausea vomiting. Denies any burning with urination. 09/23/2017 patient is still very weak. She was switched over to oral Lasix last night. She denies any chest pain or shortness of breath. Denies any nausea or vomiting. Denies any bowel movement changes or urinary symptoms. She did have a blood sugar of 69. Her NovoLog 7030 was adjusted. Objective - Vital Signs Vital signs: Vital Signs Temp 97.3 F L 09/23/17 08:00 Pulse 56 L 09/23/17 08:00 Resp 18 09/23/17 08:00 BP 111/56 09/23/17 08:00 Pulse Ox 100 09/23/17 08:00 Intake & Output 09/22/17 09/23/17 09/23/17 18:59 06:59 18:59 Intake Total 420 180 Balance 420 180 Weight 78 kg 76.7 kg Intake: Oral 420 180 Other: Voiding Method Diaper Diaper Diaper Incontinent Incontinent Incontinent # Voids 3 1 # Bowel Movements 1 - Exam Head normocephalic Neck supple Lungs clear Heart regular rate and rhythm S1-S2, no rub or gallop Abdomen is soft nontender nondistended positive bowel sounds no hepatosplenomegaly Extremities no edema. Legs are bandaged dressing is clean and dry Neuro alert and orientated to 3 - Labs CBC & Chem 7: 09/23/17 05:40 09/23/17 05:40 Labs: Abnormal Lab Results - Last 24 Hours (Table) 09/22/17 09/22/17 09/22/17 Range/Units 11:21 16:38 21:23 RBC (3.80-5.40) m/uL Hgb (11.4-16.0) gm/dL Hct (34.0-46.0) % MCHC (31.0-37.0) g/dL RDW (11.5-15.5) % Lymphocytes # (1.0-4.8) k/uL Carbon Dioxide (22-30) mmol/L BUN (7-17) mg/dL Creatinine (0.52-1.04) mg/dL Glucose (74-99) mg/dL POC Glucose (mg/dL) 145 H 135 H 172 H (75-99) mg/dL Total Protein (6.3-8.2) g/dL Albumin (3.5-5.0) g/dL 09/23/17 09/23/17 09/23/17 Range/Units 05:40 05:40 05:42 RBC 3.11 L (3.80-5.40) m/uL Hgb 9.0 L D (11.4-16.0) gm/dL Hct 30.3 L (34.0-46.0) % MCHC 29.8 L (31.0-37.0) g/dL RDW 18.4 H (11.5-15.5) % Lymphocytes # 0.7 L (1.0-4.8) k/uL Carbon Dioxide 34 H (22-30) mmol/L BUN 38 H (7-17) mg/dL Creatinine 1.44 H (0.52-1.04) mg/dL Glucose 69 L (74-99) mg/dL POC Glucose (mg/dL) 70 L (75-99) mg/dL Total Protein 5.0 L (6.3-8.2) g/dL Albumin 2.6 L (3.5-5.0) g/dL Assessment and Plan Assessment: 1. Altered mental status changes and generalized weakness: Likely a metabolic encephalopathy secondary to UTI 2. Questionable right-sided facial droop with confusion now resolved. No evidence of stroke on computed tomography scan of the brain. Carotid Doppler shows ICA 20% stenosis bilaterally. Echo shows EF of 20-25% and severe tricuspid regurgitation 3. Acute on chronic systolic CHF exacerbation. Cardiology following. Continue Lasix, entresto, and Aldactone. Patient switched to oral Lasix yesterday evening. 4. History of ischemic cardiomyopathy status post AICD 5. History of bilateral pretibial lower extremity ulcers. Infectious disease following. continue wound care 6. UTI. urine culture no growth. Continue IV Rocephin. 7. Episodes of nonsustained ventricular tachycardia. Cardiology notified. Magnesium being replaced. Thyroid level within normal range. Continue metoprolol. Patient has been taken off of the IV amiodarone 8. Mildly elevated LFTs: No abdominal pain. Possibly related to fluid congestion in the liver. Patient had a liver ultrasound completed in 2016 showing evidence of a lap cholecystectomy no significant abnormality. LFTs are trending down 9. Acute on Chronic kidney disease, stage 3. Acute kidney injury likely related to diuretics. Monitor closely. 10. History of coronary artery disease with prior bypass surgery and stents 11. Hypomagnesium, patient receiving supplement 12. Paroxysmal atrial fibrillation: Not on anticoagulation due to frequent falls 13. Iron deficiency anemia and anemia of chronic kidney disease: Continue iron supplement 14. Insulin-dependent diabetes mellitus. Patient had episode of hypoglycemia with a blood sugar of 69 this morning. We'll decrease her evening dose of NovoLog 70/30 to 12 units at bedtime. DVT prophylaxis subcu heparin Continue physical therapy. Patient will require return to ECF at time of discharge I performed an examination of the patient and discussed their management with the physician Presales Consultant. I have reviewed the Physician Presales Consultant's notes and agree with the documented findings and plan of care
[2017-09-23 11:58] LABS: Glucose,Whole Blood 166 mg/dL (75-99)
--- NOTE | 2017-09-23 14:21 | P.PN ---
Subjective Progress Note Date: 09/23/17 This is a pleasant 77-year-old female with history of coronary artery disease and prior bypass surgery, history of prior PCI, most recently patient underwent unsuccessful angioplasty of a diagonal branch in May 2017, hypertension, hyperlipidemia, paroxysmal atrial fibrillation, ischemic cardiomyopathy with prior AICD, who presents to the hospital with symptoms of weakness. Patient apparently has been getting progressively more weak, she's also been very fatigued according to her. She did experience a fall approximately one week ago. Patient was also noted to have some mild confusion. For this reason she was admitted to the hospital. Upon questioning , patient denies having any difficulty in breathing, no chest discomfort, no palpitations. CAT scan of the brain was performed on arrival here which revealed cerebral atrophy and chronic small vessel ischemia with no acute intracranial abnormality. Chest x-ray showed bilateral pleural effusions without change as compared with prior. EKG shows a sinus bradycardia with T- wave inversion in the lateral leads as well as nonspecific ST-T wave changes. But pressure on arrival here 150/60, heart rate in the 50s, 96% on room air. She is afebrile. The pressure this morning 122/60 with a heart rate in the 60s. White blood cell count 6.4, hemoglobin 10.1, platelet count 173, sodium 138, potassium 4.2, BUN 27, creatinine 1.0. Blood sugar on arrival to 97. Magnesium 1.6, alk phos 137. BNP level 15,900. Troponin 0.014, 0.030. Urinalysis, large amount of leukocyte esterase, positive nitrates, trace of blood, many white blood cells. She denies any urinary frequency or dysuria. Cardiology consultation was requested because of elevated BNP level. 09/21/2017 Patient was seen and examined this morning, much more awake today. Diuresed well through the night last night, weight down another 4 kg today. Creatinine today 1.5. Magnesium 2.2. Blood pressure 108/60 with a heart rate in the 50s. Laboratory data reviewed, hemoglobin 9.9, platelet count 178. Sodium 133, BUN 32, creatinine 1.5. BNP was repeated, 23,300. We will also request a repeat chest x-ray be performed today. 09/22/2017 Patient seen and examined this morning, feeling much better overall. She is diuresing, however her weight indicates that it's up today. We will recheck that weight. hemaglobin 10.5, potassium 4.3, BUN 38, creatinine 1.4. 09/23/2017 Patient seen and examined this morning, breathing is overall stable. Still complains of feeling weak. Currently on oral diuretics. BUN 38, creatinine 1.4. Potassium 4.3. Blood pressure 114/50, heart rate in the 60s. Objective - Vital Signs Vital signs: Vital Signs Temp 97.9 F 09/23/17 12:00 Pulse 56 L 09/23/17 12:00 Resp 18 09/23/17 12:00 BP 114/50 09/23/17 12:00 Pulse Ox 98 09/23/17 12:00 Intake & Output 09/22/17 09/23/17 09/23/17 18:59 06:59 18:59 Intake Total 420 485 Balance 420 485 Weight 78 kg 76.7 kg Intake: Oral 420 485 Other: Voiding Method Diaper Diaper Diaper Incontinent Incontinent Incontinent # Voids 3 1 # Bowel Movements 1 - Exam PHYSICAL EXAMINATION: HEENT: [Head is atraumatic, normocephalic. Pupils equal, round. Neck is supple. There is no elevated jugular venous pressure.] HEART EXAMINATION: Heart S1 and S2 systolic murmur is heard. CHEST EXAMINATION:[ Lungs are clear with mild diminished air entry to the bases . No chest wall tenderness is noted on palpation or with deep breathing.] ABDOMEN: [ Soft, nontender. Bowel sounds are heard. No organomegaly noted]. EXTREMITIES:[ 2+ peripheral pulses with no evidence of peripheral edema and no calf tenderness noted]. Lateral release wraps are in place. NEUROLOGIC [patient is awake, alert and oriented -3.] . - Labs CBC & Chem 7: 09/23/17 05:40 09/23/17 05:40 Labs: Abnormal Lab Results - Last 24 Hours (Table) 09/22/17 09/22/17 09/23/17 Range/Units 16:38 21:23 05:40 RBC 3.11 L (3.80-5.40) m/uL Hgb 9.0 L D (11.4-16.0) gm/dL Hct 30.3 L (34.0-46.0) % MCHC 29.8 L (31.0-37.0) g/dL RDW 18.4 H (11.5-15.5) % Lymphocytes # 0.7 L (1.0-4.8) k/uL Carbon Dioxide (22-30) mmol/L BUN (7-17) mg/dL Creatinine (0.52-1.04) mg/dL Glucose (74-99) mg/dL POC Glucose (mg/dL) 135 H 172 H (75-99) mg/dL Total Protein (6.3-8.2) g/dL Albumin (3.5-5.0) g/dL 09/23/17 09/23/17 09/23/17 Range/Units 05:40 05:42 11:44 RBC (3.80-5.40) m/uL Hgb (11.4-16.0) gm/dL Hct (34.0-46.0) % MCHC (31.0-37.0) g/dL RDW (11.5-15.5) % Lymphocytes # (1.0-4.8) k/uL Carbon Dioxide 34 H (22-30) mmol/L BUN 38 H (7-17) mg/dL Creatinine 1.44 H (0.52-1.04) mg/dL Glucose 69 L (74-99) mg/dL POC Glucose (mg/dL) 70 L 166 H (75-99) mg/dL Total Protein 5.0 L (6.3-8.2) g/dL Albumin 2.6 L (3.5-5.0) g/dL Assessment and Plan Plan: Assessment and plan #1 symptoms of progressive weakness and fatigue with mild confusion. Positive UTI, asymptomatic. CT of the brain did not reveal any acute changes. Patient is afebrile #2 systolic congestive heart failure acute on chronic #3 known history of coronary artery disease with prior bypass surgery and stent placements, most recently patient had a failed angioplasty in May of last year #4 hypertension #5 hyperlipidemia #6 diabetes #7 ischemic cardio myopathy with prior AICD #8 paroxysmal atrial fibrillation #9 hypomagnesemia ,runs of nonsustained ventricular tachycardia noted #10 chronic anemia #11 thyroidism. Plan From cardiology's perspective, we'll continue the patient on her current medications. We discharged once cleared by primary. Follow-up appointment will be made in the office post discharge. DNP note has been reviewed, I agree with a documented findings and plan of care. Patient was seen and examined.
[2017-09-23] MEDS: POLYETHYLENE GLYCOL 3350 17 GM POWD.PACK PO SCH (16:30)
[2017-09-23] MEDS: FERROUS SULFATE 325 MG TAB PO SCH (16:31)
[2017-09-23] MEDS: CHOLECALCIFEROL 1,000 UNIT TAB PO SCH (16:32)
[2017-09-23] MEDS: LEVOTHYROXINE 25 MCG TAB PO SCH (17:06)
[2017-09-23 17:20] LABS: Glucose,Whole Blood 332 mg/dL (75-99)
[2017-09-23] MEDS ORDERED: INSULN ASP PRT/INSULIN ASPART 100 UNIT/ML 10 ML VIAL SQ SCH (20:00)
[2017-09-23 21:28] LABS: Glucose,Whole Blood 280 mg/dL (75-99)
[2017-09-23] MEDS: PREGABALIN 75 MG CAP PO SCH (21:35)
[2017-09-23] MEDS: HEPARIN SODIUM,PORCINE 5,000 UNIT/ML 1 ML VIAL SQ SCH (21:36)
[2017-09-23] MEDS: PANTOPRAZOLE 40 MG TABLET PO SCH (21:36)
[2017-09-23] MEDS: traZODone HCL 50 MG TAB PO SCH (21:36)
--- NOTE | 2017-09-23 22:31 | PN ---
PROGRESS NOTE DATE OF SERVICE: 09/23/2017 REASON FOR FOLLOWUP: 1. Right leg wound and venostasis ulcer. 2. UTI. INTERVAL HISTORY: The patient is afebrile, has been feeling weak and tired; no energy. Denies any chest pain. Occasional cough. No abdominal pain and no pain in the right leg wound area. PHYSICAL EXAMINATION: Blood pressure is 105/60 with a pulse of 68, temperature 97.7. She is 93% on room air. General description is an elderly female lying in bed in no distress. RESPIRATORY SYSTEM: Unlabored breathing with decreased breath sounds at the bases. No wheeze. HEART: S1, S2. Regular rate and rhythm. ABDOMEN: Soft. No tenderness. Right leg wound is currently dressed up. No obvious drainage on the dressing. LABS: Hemoglobin is 9 with a white count of 7.3, BUN of 38, creatinine 1.44. DIAGNOSTIC IMPRESSION AND PLAN: 1. Patient with right leg chronic wound, non-healing with no cellulitis, with a significant amount of slough tissue. Patient will continue with local wound care with Santyl followed by moist dressing. 2. Patient with a positive urinalysis. Urine culture has been negative so far. Currently on Rocephin. That can be discontinued at the time of discharge. MMODL / IJN: [id number] / DAMIAN
[2017-09-24 06:07] LABS: Anisocytosis Slight; Basophils % (A) 0 %; Eosinophils # (A) 0.3 k/uL (0-0.7); Eosinophils % (A) 4 %; HCT 33.8 % (34.0-46.0); HGB 10.1 gm/dL (11.4-16.0); Hypochromasia Marked; Lymphocytes # (A) 1.3 k/uL (1.0-4.8); Lymphocytes % (A) 17 %; MCH 29.3 pg (25.0-35.0); MCHC 29.8 g/dL (31.0-37.0); MCV 98.3 fL (80.0-100.0); Macrocytosis Slight; Mean Platelet Volume 8.3; Monocytes # (A) 0.7 k/uL (0-1.0); Monocytes % (A) 9 %; Neutrophils % (A) 67 %; Platelet Count 165 k/uL (150-450); RBC 3.44 m/uL (3.80-5.40); RDW 18.4 % (11.5-15.5); WBC 7.5 k/uL (3.8-10.6)
[2017-09-24 06:09] LABS: Glucose,Whole Blood 105 mg/dL (75-99)
[2017-09-24] MEDS: INSULIN ASPART 100 UNIT/ML 1 ML 10 ML VIAL SQ SCH ×4 (06:33→22:22)
[2017-09-24 06:42] LABS: Albumin 3.1 g/dL (3.5-5.0); Calcium 9.4 mg/dL (8.4-10.2); Potassium 4.7 mmol/L (3.5-5.1); Total Bilirubin 0.6 mg/dL (0.2-1.3); Total Protein 5.6 g/dL (6.3-8.2)
[2017-09-24] MEDS: ASPIRIN 81 MG PO SCH (09:15)
[2017-09-24] MEDS: SACUBITRIL/VALSARTAN 24 MG-26 MG TABLET PO SCH ×2 (09:15→22:21)
[2017-09-24] MEDS: HEPARIN SODIUM,PORCINE 5,000 UNIT/ML 1 ML VIAL SQ SCH ×2 (09:15→22:21)
[2017-09-24] MEDS: MAGNESIUM OXIDE 400 MG TAB PO SCH ×3 (09:15→22:21)
[2017-09-24] MEDS: DOCUSATE 100 MG CAP PO SCH ×2 (09:15→17:01)
[2017-09-24] MEDS: ISOSORBIDE MONONITRATE ER 60 MG TAB.ER.24H PO SCH (09:15)
[2017-09-24] MEDS: ALLOPURINOL 300 MG TAB PO SCH (09:16)
[2017-09-24] MEDS: FUROSEMIDE 40 MG TAB PO SCH ×2 (09:16→17:01)
[2017-09-24] MEDS: SPIRONOLACTONE 25 MG TAB PO SCH ×2 (09:16→22:21)
[2017-09-24] MEDS: METOPROLOL TARTRATE 50 MG TAB PO SCH ×2 (09:16→22:20)
[2017-09-24] MEDS: COLLAGENASE 250 UNIT/GM OINTMENT 30 GM TUBE TOPICAL SCH (09:17)
[2017-09-24] MEDS: INSULN ASP PRT/INSULIN ASPART 100 UNIT/ML 10 ML VIAL SQ SCH ×2 (09:22→22:22)
[2017-09-24] MEDS: cefTRIAXone IN SWFI 1,000 MG/10 ML SYRINGE IVP SCH (09:22)
[2017-09-24 11:53] LABS: Glucose,Whole Blood 159 mg/dL (75-99)
--- NOTE | 2017-09-24 13:00 | P.PN ---
Subjective Progress Note Date: 09/24/17 Patient is sleepy this morning. Daughter at bedside. Patient has been having issues with low blood glucose in the morning. Blood glucose is usually elevated throughout the day. Objective - Vital Signs Vital signs: Vital Signs Temp 98.7 F 09/24/17 12:00 Pulse 51 L 09/24/17 12:00 Resp 19 09/24/17 12:00 BP 111/58 09/24/17 12:00 Pulse Ox 100 09/24/17 12:00 Intake & Output 09/23/17 09/24/17 09/24/17 18:59 06:59 18:59 Intake Total 485 210 240 Output Total 300 Balance 185 210 240 Intake: IV 10 flush 10 Oral 485 200 240 Output: Stool 300 Other: Voiding Method Diaper Diaper Incontinent Incontinent # Voids 1 2 # Bowel Movements 0 - Exam General: The patient is lethargic but easily arousable Eye: there is normal conjunctiva bilaterally. Neck: The neck is supple, there is no JVD. Cardiovascular: Normal S1-S2, no S3-S4, no murmurs. Respiratory: Lungs clear to auscultation bilaterally Gastrointestinal: Abdomen is soft, nontender Extremities both legs are wrapped in Moe wrap Neurological:. Speech is normal. Skin: Skin is warm and dry - Labs CBC & Chem 7: 09/24/17 05:29 09/24/17 05:29 Labs: Abnormal Lab Results - Last 24 Hours (Table) 09/23/17 09/23/17 09/24/17 Range/Units 16:55 21:25 05:29 RBC 3.44 L (3.80-5.40) m/uL Hgb 10.1 L (11.4-16.0) gm/dL Hct 33.8 L (34.0-46.0) % MCHC 29.8 L (31.0-37.0) g/dL RDW 18.4 H (11.5-15.5) % Chloride (98-107) mmol/L Carbon Dioxide (22-30) mmol/L BUN (7-17) mg/dL Creatinine (0.52-1.04) mg/dL Glucose (74-99) mg/dL POC Glucose (mg/dL) 332 H 280 H (75-99) mg/dL Alkaline Phosphatase (38-126) U/L Total Protein (6.3-8.2) g/dL Albumin (3.5-5.0) g/dL 09/24/17 09/24/17 09/24/17 Range/Units 05:29 06:08 11:51 RBC (3.80-5.40) m/uL Hgb (11.4-16.0) gm/dL Hct (34.0-46.0) % MCHC (31.0-37.0) g/dL RDW (11.5-15.5) % Chloride 96 L (98-107) mmol/L Carbon Dioxide 33 H (22-30) mmol/L BUN 42 H (7-17) mg/dL Creatinine 1.19 H (0.52-1.04) mg/dL Glucose 106 H (74-99) mg/dL POC Glucose (mg/dL) 105 H 159 H (75-99) mg/dL Alkaline Phosphatase 137 H (38-126) U/L Total Protein 5.6 L (6.3-8.2) g/dL Albumin 3.1 L (3.5-5.0) g/dL Assessment and Plan Assessment: 1. Altered mental status changes and generalized weakness: Multifactorial secondary to underlying comorbidities 2. Questionable right-sided facial droop with confusion now resolved. No evidence of stroke on computed tomography scan of the brain. Carotid Doppler shows ICA 20% stenosis bilaterally. Echo shows EF of 20-25% and severe tricuspid regurgitation 3. Acute on chronic systolic CHF exacerbation. Cardiology following. Continue Lasix, entresto, and Aldactone. Patient switched to oral Lasix 4. History of ischemic cardiomyopathy status post AICD 5. History of bilateral pretibial lower extremity ulcers. Infectious disease following. continue wound care 6. UTI. urine culture no growth. Finished 3 days course of IV ceftriaxone 7. Episodes of nonsustained ventricular tachycardia. Cardiology notified. Magnesium being replaced. Thyroid level within normal range. Continue metoprolol. Patient has been taken off of the IV amiodarone 8. Mildly elevated LFTs: No abdominal pain. Possibly related to fluid congestion in the liver. Patient had a liver ultrasound completed in 2016 showing evidence of a lap cholecystectomy no significant abnormality. LFTs are trending down 9. Acute on Chronic kidney disease, stage 3. Acute kidney injury likely related to diuretics. Monitor closely. 10. History of coronary artery disease with prior bypass surgery and stents 11. Hypomagnesium, patient receiving supplement 12. Paroxysmal atrial fibrillation: Not on anticoagulation due to frequent falls 13. Iron deficiency anemia and anemia of chronic kidney disease: Continue iron supplement 14. Insulin-dependent diabetes mellitus. Insulin adjusted to 30 units in the morning and 10 units at bedtime I discussed goals of care and overall medical picture with the patient and her daughters at bedside. They are interested in getting more information about hospice and comfort measures. Patient is DNR/DNI. Consultation for hospice requested. Patient prognosis is very guarded.
[2017-09-24] MEDS: HYDROcodone/APAP 10-325MG 1 EACH TAB PO PRN ×2 (16:37→22:21)
[2017-09-24 16:53] LABS: Glucose,Whole Blood 183 mg/dL (75-99)
[2017-09-24] MEDS: POLYETHYLENE GLYCOL 3350 17 GM POWD.PACK PO SCH (17:01)
[2017-09-24] MEDS: CHOLECALCIFEROL 1,000 UNIT TAB PO SCH (17:01)
[2017-09-24] MEDS: LEVOTHYROXINE 25 MCG TAB PO SCH (17:01)
[2017-09-24 20:37] LABS: Glucose,Whole Blood 239 mg/dL (75-99)
[2017-09-24] MEDS: traZODone HCL 50 MG TAB PO SCH (22:21)
[2017-09-24] MEDS: PANTOPRAZOLE 40 MG TABLET PO SCH (22:21)
[2017-09-24] MEDS: PREGABALIN 75 MG CAP PO SCH (22:25)
[2017-09-25] MEDS: INSULIN ASPART 100 UNIT/ML 1 ML 10 ML VIAL SQ SCH ×4 (07:34→21:26)
[2017-09-25 07:39] LABS: Glucose,Whole Blood 103 mg/dL (75-99)
[2017-09-25 08:16] VITALS: RESP 16
[2017-09-25] MEDS: HYDROcodone/APAP 10-325MG 1 EACH TAB PO PRN ×2 (08:30→20:11)
[2017-09-25] MEDS: HEPARIN SODIUM,PORCINE 5,000 UNIT/ML 1 ML VIAL SQ SCH ×2 (08:36→20:04)
[2017-09-25] MEDS: MAGNESIUM OXIDE 400 MG TAB PO SCH ×3 (08:37→20:04)
[2017-09-25] MEDS: ALLOPURINOL 300 MG TAB PO SCH (08:37)
[2017-09-25] MEDS: ISOSORBIDE MONONITRATE ER 60 MG TAB.ER.24H PO SCH (08:38)
[2017-09-25] MEDS: METOPROLOL TARTRATE 50 MG TAB PO SCH ×2 (08:38→20:04)
[2017-09-25] MEDS: FUROSEMIDE 40 MG TAB PO SCH ×2 (08:38→17:41)
[2017-09-25] MEDS: SACUBITRIL/VALSARTAN 24 MG-26 MG TABLET PO SCH ×2 (08:38→20:04)
[2017-09-25] MEDS: DOCUSATE 100 MG CAP PO SCH ×2 (08:38→17:40)
[2017-09-25] MEDS: SPIRONOLACTONE 25 MG TAB PO SCH ×2 (08:38→20:04)
[2017-09-25] MEDS: ASPIRIN 81 MG PO SCH (08:38)
[2017-09-25 08:47] LABS: Glucose,Whole Blood 127 mg/dL (75-99)
--- NOTE | 2017-09-25 09:09 | PN ---
PROGRESS NOTE DATE OF SERVICE: 09/24/2017. REASON FOR FOLLOWUP: 1. Right leg venous stasis ulcer. No cellulitis. 2. UTI. INTERVAL HISTORY: The patient is afebrile. She is breathing comfortably. Denies significant chest pain, cough, no abdominal pain or any pain in the right leg area. EXAMINATION: Blood pressure is 114/70 with a pulse of 87, temperature of 96.3. She is 100% on 3 L nasal cannula. General description is an elderly female lying in bed in no distress. Respiratory system unlabored breathing, clear to auscultation anteriorly. Heart S1, S2. Regular rate and rhythm. Abdomen soft, no tenderness. Right leg wound slightly dressed up. No obvious drainage on the dressing. Urine cultures have been negative. DIAGNOSTIC IMPRESSION AND PLAN: 1. Patient with right leg chronic wound, likely venous stasis with significant slough tissue, currently being treated with Santyl followed by moist dressing. 2. Patient with a positive urinalysis on admission, concern for urinary tract infection however, urine culture has been negative.Rocephin has been discontinued. MMODL / IJN: [id number] / MTDD
[2017-09-25 10:05] LABS: Glucose,Whole Blood 179 mg/dL (75-99)
[2017-09-25] MEDS: INSULN ASP PRT/INSULIN ASPART 100 UNIT/ML 10 ML VIAL SQ SCH ×2 (11:18→20:04)
[2017-09-25] MEDS: COLLAGENASE 250 UNIT/GM OINTMENT 30 GM TUBE TOPICAL SCH (12:23)
[2017-09-25 12:29] LABS: Glucose,Whole Blood 142 mg/dL (75-99)
--- NOTE | 2017-09-25 14:14 | P.PN ---
Subjective Progress Note Date: 09/25/17 Patient is sleepy this morning. Daughter at bedside. Objective - Vital Signs Vital signs: Vital Signs Temp 96.9 F L 09/25/17 07:00 Pulse 56 L 09/25/17 08:00 Resp 16 09/25/17 08:00 BP 109/49 09/25/17 07:00 Pulse Ox 95 09/25/17 12:00 Intake & Output 09/24/17 09/25/17 09/25/17 18:59 06:59 18:59 Intake Total 720 Output Total 300 Balance 720 -300 Weight 76.7 kg Intake: Oral 720 Output: Stool 300 Other: Voiding Method Incontinent Incontinent Incontinent # Voids 1 3 # Bowel Movements 0 - Exam General: The patient is lethargic but easily arousable Eye: there is normal conjunctiva bilaterally. Neck: The neck is supple, there is no JVD. Cardiovascular: Normal S1-S2, no S3-S4, no murmurs. Respiratory: Lungs clear to auscultation bilaterally Gastrointestinal: Abdomen is soft, nontender Extremities both legs are wrapped in Moe wrap Neurological:. Speech is normal. Skin: Skin is warm and dry - Labs CBC & Chem 7: 09/24/17 05:29 09/24/17 05:29 Labs: Abnormal Lab Results - Last 24 Hours (Table) 09/24/17 09/24/17 09/25/17 Range/Units 16:51 20:35 07:32 POC Glucose (mg/dL) 183 H 239 H 103 H (75-99) mg/dL 09/25/17 09/25/17 09/25/17 Range/Units 08:35 10:03 12:25 POC Glucose (mg/dL) 127 H 179 H 142 H (75-99) mg/dL Assessment and Plan Assessment: 1. Altered mental status changes and generalized weakness: Multifactorial secondary to underlying comorbidities 2. Questionable right-sided facial droop with confusion now resolved. No evidence of stroke on computed tomography scan of the brain. Carotid Doppler shows ICA 20% stenosis bilaterally. Echo shows EF of 20-25% and severe tricuspid regurgitation 3. Acute on chronic systolic CHF exacerbation. Cardiology following. Continue Lasix, entresto, and Aldactone. Patient switched to oral Lasix 4. History of ischemic cardiomyopathy status post AICD 5. History of bilateral pretibial lower extremity ulcers. Infectious disease following. continue wound care 6. UTI. urine culture no growth. Finished 3 days course of IV ceftriaxone 7. Episodes of nonsustained ventricular tachycardia. Cardiology notified. Magnesium being replaced. Thyroid level within normal range. Continue metoprolol. Patient has been taken off of the IV amiodarone 8. Mildly elevated LFTs: No abdominal pain. Possibly related to fluid congestion in the liver. Patient had a liver ultrasound completed in 2016 showing evidence of a lap cholecystectomy no significant abnormality. LFTs are trending down 9. Acute on Chronic kidney disease, stage 3. Acute kidney injury likely related to diuretics. Monitor closely. 10. History of coronary artery disease with prior bypass surgery and stents 11. Hypomagnesium, patient receiving supplement 12. Paroxysmal atrial fibrillation: Not on anticoagulation due to frequent falls 13. Iron deficiency anemia and anemia of chronic kidney disease: Continue iron supplement 14. Insulin-dependent diabetes mellitus. Insulin adjusted to 30 units in the morning and 10 units at bedtime I discussed goals of care and overall medical picture with the patient and her daughters at bedside. Patient is DNR/DNI. Consultation for hospice requested. Patient prognosis is very guarded.
[2017-09-25] MEDS: LEVOTHYROXINE 25 MCG TAB PO SCH (17:40)
[2017-09-25 17:41] LABS: Glucose,Whole Blood 133 mg/dL (75-99)
[2017-09-25] MEDS: POLYETHYLENE GLYCOL 3350 17 GM POWD.PACK PO SCH (17:41)
[2017-09-25] MEDS: CHOLECALCIFEROL 1,000 UNIT TAB PO SCH (17:41)
[2017-09-25] MEDS: PANTOPRAZOLE 40 MG TABLET PO SCH (20:04)
[2017-09-25] MEDS: PREGABALIN 75 MG CAP PO SCH (20:04)
[2017-09-25] MEDS: traZODone HCL 50 MG TAB PO SCH (20:04)
[2017-09-25 20:05] LABS: Glucose,Whole Blood 158 mg/dL (75-99)
[2017-09-25 21:25] LABS: Glucose,Whole Blood 162 mg/dL (75-99)
[2017-09-26 08:02] LABS: Glucose,Whole Blood 73 mg/dL (75-99)
[2017-09-26] MEDS: INSULIN ASPART 100 UNIT/ML 1 ML 10 ML VIAL SQ SCH ×3 (08:10→17:02)
[2017-09-26 09:00] LABS: Anisocytosis Slight; Basophils % (A) 0 %; Eosinophils # (A) 0.2 k/uL (0-0.7); Eosinophils % (A) 4 %; HCT 34.5 % (34.0-46.0); Hypochromasia Marked; Lymphocytes # (A) 1.1 k/uL (1.0-4.8); Lymphocytes % (A) 22 %; MCH 29.5 pg (25.0-35.0); MCV 101.6 fL (80.0-100.0); Macrocytosis Moderate; Mean Platelet Volume 7.9; Monocytes # (A) 0.4 k/uL (0-1.0); Monocytes % (A) 7 %; Neutrophils # (A) 3.2 k/uL (1.3-7.7); Neutrophils % (A) 64 %; Platelet Count 154 k/uL (150-450); RDW 18.7 % (11.5-15.5); WBC 4.9 k/uL (3.8-10.6)
[2017-09-26] MEDS: INSULN ASP PRT/INSULIN ASPART 100 UNIT/ML 10 ML VIAL SQ SCH (09:16)
[2017-09-26] MEDS: HEPARIN SODIUM,PORCINE 5,000 UNIT/ML 1 ML VIAL SQ SCH (09:17)
[2017-09-26] MEDS: FUROSEMIDE 40 MG TAB PO SCH ×2 (09:18→17:05)
[2017-09-26] MEDS: ISOSORBIDE MONONITRATE ER 60 MG TAB.ER.24H PO SCH (09:18)
[2017-09-26] MEDS: SACUBITRIL/VALSARTAN 24 MG-26 MG TABLET PO SCH (09:18)
[2017-09-26] MEDS: DOCUSATE 100 MG CAP PO SCH ×2 (09:18→17:05)
[2017-09-26] MEDS: ALLOPURINOL 300 MG TAB PO SCH (09:18)
[2017-09-26] MEDS: ASPIRIN 81 MG PO SCH (09:18)
[2017-09-26] MEDS: SPIRONOLACTONE 25 MG TAB PO SCH (09:18)
[2017-09-26] MEDS: MAGNESIUM OXIDE 400 MG TAB PO SCH ×2 (09:18→17:05)
[2017-09-26] MEDS: METOPROLOL TARTRATE 50 MG TAB PO SCH (09:18)
[2017-09-26 09:26] LABS: Potassium 4.8 mmol/L (3.5-5.1)
[2017-09-26 09:53] LABS: Calcium 9.3 mg/dL (8.4-10.2)
--- NOTE | 2017-09-26 09:55 | PN ---
PROGRESS NOTE DATE OF SERVICE: 09/25/2017. REASON FOR FOLLOW UP: Right leg wound. INTERVAL HISTORY: The patient is afebrile. She has been breathing comfortably. Denies significant chest pain. No cough. No abdominal pain. No worsening pain in the right leg area. EXAMINATION: Blood pressure is 152/73 with a pulse of 53, temperature of 97.6. She is 100% on 3 L nasal cannula. General description is an elderly female lying in bed in no distress. Respiratory system unlabored breathing. Clear to auscultation anteriorly. Heart S1, S2 regular rate and rhythm. Abdomen soft. No tenderness. Right leg wound which was changed by the RN did mention that overall soft tissue has decreased. No surrounding swelling or redness. LABS: White count 7.5. DIAGNOSTIC IMPRESSION AND PLAN: Patient with right leg wound with no cellulitis. Continue local wound care with Santyl followed by moist dressing. No need for any systemic antibiotic therapy. Family present at bedside. Their questions were answered. MMODL / IJN: [id number] /
[2017-09-26 12:00] LABS: Glucose,Whole Blood 113 mg/dL (75-99)
[2017-09-26] MEDS ORDERED: INSULN ASP PRT/INSULIN ASPART 100 UNIT/ML 10 ML VIAL SQ SCH (12:15)
[2017-09-26] MEDS: COLLAGENASE 250 UNIT/GM OINTMENT 30 GM TUBE TOPICAL SCH (13:21)
--- NOTE | 2017-09-26 14:01 | PN ---
PROGRESS NOTE DATE OF SERVICE: 09/26/2016. REASON FOR FOLLOW UP: Right leg wound. INTERVAL HISTORY: The patient is afebrile. She is breathing comfortably. Denies any chest pain. No cough. No abdominal pain or any pain in the right leg area. EXAMINATION: Blood pressure is 114/54 with a pulse of 53, temperature of 98. She is 100% on room air. General description is an elderly female up in the chair in no distress. Respiratory system: Unlabored breathing, clear to auscultation anteriorly. Heart S1, S2. Regular rate and rhythm. Abdomen soft. No tenderness. Right leg wound dressing was just changed by the daughter, did mention that however, overall wound looks clean with no slough tissue. Surrounding redness improved. LABS: Hemoglobin 10, white count 4.9 with a BUN of 40, creatinine is 1.19. DIAGNOSTIC IMPRESSION AND PLAN: Patient with right leg wound, chronic wound, likely venous stasis. The patient at this time will continue local wound care with Santyl until the patient evaluated in the wound care center. No need for any systemic antibiotic therapy. Continue supportive care. MMODL / IJN: [id number] /
[2017-09-26] MEDS: HYDROcodone/APAP 10-325MG 1 EACH TAB PO PRN (14:03)
--- NOTE | 2017-09-26 14:55 | P.DS ---
Providers Date of admission: 09/18/17 16:27 Expected date of discharge: 09/26/17 Attending physician: Giovanny Cesar Consults: 09/19/17 12:49 Consult Physician Routine Consulting Provider: Tita Wall Consult Reason/Comments: CHF Do you want consulting provider notified?: Yes 09/20/17 12:47 Consult Physician Routine Consulting Provider: Yoni Mejias Consult Reason/Comments: bilateral pretibial leg ulcers Do you want consulting provider notified?: Yes Primary care physician: Giovanny Cesar [facility] Course: Discharge diagnosis 1. Altered mental status changes and generalized weakness: Multifactorial secondary to underlying comorbidities and UTI 2. Questionable right-sided facial droop with confusion now resolved. No evidence of stroke on computed tomography scan of the brain. Carotid Doppler shows ICA 20% stenosis bilaterally. Echo shows EF of 20-25% and severe tricuspid regurgitation 3. Acute on chronic systolic CHF exacerbation. Cardiology following. Continue Lasix, entresto, and Aldactone. Patient switched to oral Lasix 4. History of ischemic cardiomyopathy status post AICD 5. History of bilateral pretibial lower extremity ulcers. Infectious disease following. continue wound care 6. UTI. urine culture no growth. Finished 3 days course of IV ceftriaxone 7. Episodes of nonsustained ventricular tachycardia. Cardiology notified. Magnesium being replaced. Thyroid level within normal range. Continue metoprolol. Patient has been taken off of the IV amiodarone 8. Mildly elevated LFTs: No abdominal pain. Possibly related to fluid congestion in the liver. Patient had a liver ultrasound completed in 2016 showing evidence of a lap cholecystectomy no significant abnormality. LFTs are trending down 9. Acute on Chronic kidney disease, stage 3. Acute kidney injury likely related to diuretics. Monitor closely. 10. History of coronary artery disease with prior bypass surgery and stents 11. Hypomagnesium, patient receiving supplement 12. Paroxysmal atrial fibrillation: Not on anticoagulation due to frequent falls 13. Iron deficiency anemia and anemia of chronic kidney disease: Continue iron supplement 14. Insulin-dependent diabetes mellitus. Patient had episode of hypoglycemia. Decrease 70/30 of NovoLog to 25 units in the morning and 8 units in the evening. 15. Stage I sacral ulcer. Continue zinc oxide Hospital course Patient is a pleasant 77-year-old female presenting to the emergency Department with generalized weakness. Symptoms have progressed over the past week. Patient feels fatigued. No isolated area of weakness. No fever. Patient did have a fall and hit her head a few weeks ago. Patient does not believe she had any internal bleeding. Patient was stating that [facility] for rehabilitation she had an episode of confusion where she was and able to recognize her daughter, her daughter and the nurse at [facility] thought that patient had some facial drooping on the right side, EMS were called and patient was sent to emergency room. In the emergency room patient mental status has improved there was no evidence of facial drooping or any localized weakness, computed tomography scan of the brain did not reveal any acute abnormality, she had evidence of urinary tract infection she was started on IV Rocephin, she also had evidence of bilateral pleural effusion, she was admitted to telemetry floor and was started on IV Lasix for CHF exacerbation. Patient has a known history of cardiomyopathy for many years she has been followed by Dr. Wall in that regard, she also has known history of insulin- dependent diabetes mellitus and history of bilateral lower extremity ulcers followed at the wound care clinic Patient's mental status changes likely related to her comorbidities as well as her UTI and CHF exacerbation. Patient had facial droop TIA and stroke were ruled out. Patient was seen also by cardiology in regards to episodes of nonsustained atrial tachycardia. Has resolved. Likely related to hypo- magnesium. Patient will require physical therapy. She will be discharged to [facility]. Patient's insulin continues to be adjusted for her hypoglycemia. Her symptoms have shown improvement. She is medically stable for discharge. No need for further antibiotics. Cardiology is cleared her for discharge. Infectious disease also is cleared her for discharge we'll follow- up with her in the office. I performed an examination of the patient and discussed their management with the physician Video Library Assistant. I have reviewed the Physician Video Library Assistant's notes and agree with the documented findings and plan of care Patient Condition at Discharge: Stable Plan - Discharge Summary New Discharge Prescriptions: New Collagenase [Santyl] 1 applic TOPICAL DAILY applic Furosemide [Lasix] 40 mg PO BID@0900,1600 tab Zinc Oxide 20% Oint 1 applic TOPICAL BID #1 tube Continue Nitroglycerin Sl Tabs [Nitrostat] 0.4 mg SUBLINGUAL Q5M PRN PRN Reason: Chest Pain Metoprolol Tartrate [Lopressor] 50 mg PO BID Levothyroxine Sodium 25 mcg PO DAILY@1800 Isosorbide Mononitrate ER [Imdur] 60 mg PO DAILY@0800 Aspirin [Adult Low Dose Aspirin EC] 81 mg PO DAILY@0800 Allopurinol [Zyloprim] 300 mg PO DAILY@0800 Cholecalciferol [Vitamin D3] 1,000 unit PO DAILY@1700 Spironolactone [Aldactone] 25 mg PO BID Sacubitril/Valsartan [Entresto 24 mg-26 mg Tablet] 1 tab PO DAILY@0800 traZODone HCL 50 mg PO HS@2000 Meclizine [Antivert] 25 mg PO Q8H PRN PRN Reason: Nausea Ferrous Sulfate [Feosol] 325 mg PO MOWEFR@1700 Insulin NPL/Insulin Lispro [humaLOG MIX 75-25 VIAL] 25 unit SQ DAILY@0800 Omeprazole [PriLOSEC] 20 mg PO HS Polyethylene Glycol 3350 [Miralax] 17 gm PO DAILY@1600 Pregabalin [Lyrica] 75 mg PO HS@1999 Docusate [Colace] 100 mg PO BID@0800,1700 Magnesium Oxide [Mag-Ox] 400 mg PO TID@0800,1600,1999 Hydrocodone/Acetaminophen [[place] 10-325] 1 tab PO Q6H PRN #40 tablet PRN Reason: Pain Changed Insulin NPL/Insulin Lispro [humaLOG MIX 75-25 VIAL] 8 unit SQ HS@1999 #0 Discontinued Furosemide [Lasix] 40 mg PO DAILY Furosemide [Lasix] 20 mg PO DAILY@1700 Discharge Medication List Allopurinol [Zyloprim] 300 mg PO DAILY@0800 04/18/17 [History] Aspirin [Adult Low Dose Aspirin EC] 81 mg PO DAILY@0800 04/18/17 [History] Isosorbide Mononitrate ER [Imdur] 60 mg PO DAILY@0800 04/18/17 [History] Levothyroxine Sodium 25 mcg PO DAILY@1800 04/18/17 [History] Metoprolol Tartrate [Lopressor] 50 mg PO BID 04/18/17 [History] Nitroglycerin Sl Tabs [Nitrostat] 0.4 mg SUBLINGUAL Q5M PRN 04/18/17 [History] Cholecalciferol [Vitamin D3] 1,000 unit PO DAILY@1700 08/11/17 [History] Ferrous Sulfate [Feosol] 325 mg PO MOWEFR@1700 08/11/17 [History] Meclizine [Antivert] 25 mg PO Q8H PRN 08/11/17 [History] Sacubitril/Valsartan [Entresto 24 mg-26 mg Tablet] 1 tab PO DAILY@0800 08/11/17 [History] Spironolactone [Aldactone] 25 mg PO BID 08/11/17 [History] traZODone HCL 50 mg PO HS@199908/11/17 [History] Docusate [Colace] 100 mg PO BID@0800,1700 09/18/17 [History] Insulin NPL/Insulin Lispro [humaLOG MIX 75-25 VIAL] 25 unit SQ DAILY@0800 [History] Magnesium Oxide [Mag-Ox] 400 mg PO TID@0800,1600,199909/18/17 [History] Omeprazole [PriLOSEC] 20 mg PO HS 09/18/17 [History] Polyethylene Glycol 3350 [Miralax] 17 gm PO DAILY@1600 09/18/17 [History] Pregabalin [Lyrica] 75 mg PO HS@199909/18/17 [History] Collagenase [Santyl] 1 applic TOPICAL DAILY applic 09/26/17 [Rx] Furosemide [Lasix] 40 mg PO BID@0900,1600 tab 09/26/17 [Rx] Hydrocodone/Acetaminophen [[place] 10-325] 1 tab PO Q6H PRN #40 tablet 09/26/17 [ Rx] Insulin NPL/Insulin Lispro [humaLOG MIX 75-25 VIAL] 8 unit SQ HS@1999 #0 [Rx] Zinc Oxide 20% Oint 1 applic TOPICAL BID #1 tube 09/26/17 [Rx] Follow up Appointment(s)/Referral(s): Aneta Berger MD [STAFF PHYSICIAN] - 1 Week Yoni Mejias MD [STAFF PHYSICIAN] - 1 Week Patient Instructions/Handouts: Heart Failure (DC), Urinary Tract Infection in Women (DC), Type 2 Diabetes in Adults (DC) Activity/Diet/Wound Care/Special Instructions: Diet: diabetic, cardiac Activity: as tolerated Ok to discharge to [facility], Dr. Berger to follow at [facility] Discharge Disposition: TRANSFER TO SNF/ECF
[2017-09-26 15:34] VITALS: BP 116/58; PULSE 67; TEMP 98.7
[2017-09-26 17:00] LABS: Glucose,Whole Blood 130 mg/dL (75-99)
[2017-09-26] MEDS: CHOLECALCIFEROL 1,000 UNIT TAB PO SCH (17:05)
[2017-09-26] MEDS: FERROUS SULFATE 325 MG TAB PO SCH (17:05)
[2017-09-26] MEDS: LEVOTHYROXINE 25 MCG TAB PO SCH (17:05)
[2017-09-26] MEDS: POLYETHYLENE GLYCOL 3350 17 GM POWD.PACK PO SCH (17:06)
[2017-09-27] MEDS ORDERED: INSULN ASP PRT/INSULIN ASPART 100 UNIT/ML 10 ML VIAL SQ SCH (08:00)
== END 2017-09-26 18:21 | DRG 291 ==
LOC: EC 13:03 → 6SEL 16:27 → 4MS4W 09-24 13:18
PROVIDERS: ADMIT Internal Medicine; ATTEND Internal Medicine
DX: I13.0 Hypertensive heart and chronic kidney disease with heart failure and stage 1 through stage 4 chronic kidney disease, or unspecified chronic kidney disease (principal); I50.23 Acute on chronic systolic (congestive) heart failure; G93.41 Metabolic encephalopathy; I47.2 Ventricular tachycardia; N17.9 Acute kidney failure, unspecified; L89.151 Pressure ulcer of sacral region, stage 1; N18.3 Chronic kidney disease, stage 3 (moderate); I47.1 Supraventricular tachycardia; N39.0 Urinary tract infection, site not specified; E11.22 Type 2 diabetes mellitus with diabetic chronic kidney disease; E83.42 Hypomagnesemia; I07.1 Rheumatic tricuspid insufficiency; E11.622 Type 2 diabetes mellitus with other skin ulcer; D63.1 Anemia in chronic kidney disease; D50.9 Iron deficiency anemia, unspecified; E11.649 Type 2 diabetes mellitus with hypoglycemia without coma; E78.5 Hyperlipidemia, unspecified; I25.10 Atherosclerotic heart disease of native coronary artery without angina pectoris; I25.2 Old myocardial infarction; I25.5 Ischemic cardiomyopathy; I48.0 Paroxysmal atrial fibrillation; I83.018 Varicose veins of right lower extremity with ulcer other part of lower leg; K59.00 Constipation, unspecified; R29.6 Repeated falls; T50.2X5A Adverse effect of carbonic-anhydrase inhibitors, benzothiadiazides and other diuretics, initial encounter; Z66 Do not resuscitate; Z79.4 Long term (current) use of insulin; Z79.82 Long term (current) use of aspirin; Z79.899 Other long term (current) drug therapy; Z82.3 Family history of stroke; Z83.3 Family history of diabetes mellitus; Z86.711 Personal history of pulmonary embolism; Z88.4 Allergy status to anesthetic agent; Z95.1 Presence of aortocoronary bypass graft; Z95.5 Presence of coronary angioplasty implant and graft; Z95.810 Presence of automatic (implantable) cardiac defibrillator; Z86.14 Personal history of Methicillin resistant Staphylococcus aureus infection; Z88.0 Allergy status to penicillin
CPT/HCPCS: 36415; 70450; 71020; 71045; 80048; 80053; 81001; 82550; 82553; 83036; 83605; 83735; 83880; 84100; 84439; 84443; 84481; 84484; 85025; 85610; 85730; 87086; 93005; 93306; 93880; 94760; 96374; 96375; 99285

== ENCOUNTER 2017-11-30 22:45 | Inpatient (IN) | payer MEDICARE, OTHER ==
[2017-11-30 22:54] LABS: Glucose,Whole Blood 380 mg/dL (75-99)
[2017-11-30 23:09] LABS: Basophils % (A) 0 %; Eosinophils # (A) 0.1 k/uL (0-0.7); Eosinophils % (A) 1 %; HCT 35.2 % (34.0-46.0); Hypochromasia Slight; Lymphocytes # (A) 0.6 k/uL (1.0-4.8); Lymphocytes % (A) 4 %; MCH 30.4 pg (25.0-35.0); MCHC 31.3 g/dL (31.0-37.0); MCV 97.1 fL (80.0-100.0); Mean Platelet Volume 7.9; Monocytes # (A) 0.7 k/uL (0-1.0); Monocytes % (A) 5 %; Neutrophils # (A) 13.4 k/uL (1.3-7.7); Neutrophils % (A) 89 %; Platelet Count 145 k/uL (150-450); RBC 3.63 m/uL (3.80-5.40); RDW 15.8 % (11.5-15.5)
--- NOTE | 2017-11-30 23:14 | ED ---
Altered Mental Status HPI - General Chief Complaint: Altered Mental Status Stated Complaint: Altered Mental Status Time Seen by Provider: 11/30/17 22:45 Source: patient, RN notes reviewed Mode of arrival: EMS Limitations: no limitations, altered mental status - History of Present Illness Initial Comments: This is a 69-year-old female who resides in a shelter who is brought in [facility] for evaluation of progressive change in her mental status throughout the day also glucose of 447 she denies any fevers or chills or sweats she did feel warm per paramedics. He apparently had answered temperature 100.8. No dysuria no hematuria he does have leg wounds discussion a right lower extremity weakness being treated in wound Center. MD Complaint: altered mental status, decreased responsiveness - Related Data Home Medications Medication Instructions Recorded Confirmed Allopurinol [Zyloprim] 300 mg PO DAILY@0800 04/18/17 11/30/17 Aspirin [Adult Low Dose Aspirin EC] 81 mg PO DAILY@0800 04/18/17 11/30/17 Isosorbide Mononitrate ER [Imdur] 60 mg PO DAILY@0800 04/18/17 11/30/17 Levothyroxine Sodium 25 mcg PO DAILY@1800 04/18/17 11/30/17 Metoprolol Tartrate [Lopressor] 50 mg PO BID 04/18/17 11/30/17 Nitroglycerin Sl Tabs [Nitrostat] 0.4 mg SUBLINGUAL Q5M PRN 04/18/17 11/30/17 Cholecalciferol [Vitamin D3] 1,000 unit PO DAILY@1700 08/11/17 11/30/17 Ferrous Sulfate [Feosol] 325 mg PO MOWEFR@1700 08/11/17 11/30/17 Meclizine [Antivert] 25 mg PO Q8H PRN 08/11/17 11/30/17 Sacubitril/Valsartan [Entresto 24 1 tab PO BID 08/11/17 11/30/17 mg-26 mg Tablet] Spironolactone [Aldactone] 25 mg PO BID 08/11/17 11/30/17 traZODone HCL 50 mg PO HS@199908/11/17 11/30/17 Docusate [Colace] 100 mg PO BID@0800,1700 09/18/17 11/30/17 Insulin NPL/Insulin Lispro 30 unit SQ DAILY@0800 09/18/17 11/30/17 [humaLOG MIX 75-25 VIAL] Omeprazole [PriLOSEC] 20 mg PO HS 09/18/17 11/30/17 Polyethylene Glycol 3350 [Miralax] 17 gm PO DAILY@1600 09/18/17 11/30/17 Pregabalin [Lyrica] 75 mg PO HS@199909/18/17 11/30/17 Furosemide [Lasix] 40 mg PO BID 11/30/17 11/30/17 INSULIN LISPRO (HumaLOG) [HumaLOG] See Protocol SQ ACHS 11/30/17 11/30/17 Insulin NPL/Insulin Lispro 10 unit SQ HS@199911/30/17 11/30/17 [humaLOG MIX 75-25 VIAL] Previous Rx's Medication Instructions Recorded Hydrocodone/Acetaminophen [[place] 1 tab PO Q6H PRN #40 tablet 09/26/17 10-325] Allergies Allergy/AdvReac Type Severity Reaction Status Date / Time Penicillins Allergy Rash/Hives Verified 11/30/17 23:17 propofol Allergy Unknown Verified 11/30/17 23:17 sulfamethoxazole AdvReac Abdominal Verified 11/30/17 23:17 [From Bactrim] Pain trimethoprim [From Bactrim] AdvReac Abdominal Verified 11/30/17 23:17 Pain Review of Systems ROS Statement: Those systems with pertinent positive or pertinent negative responses have been documented in the HPI. ROS Other: All systems not noted in ROS Statement are negative. Past Medical History Past Medical History: Atrial Fibrillation, Heart Failure, Diabetes Mellitus, Hypertension, Myocardial Infarction (ID), Pulmonary Embolus (PE) Additional Past Medical History / Comment(s): hypothyrodism, Kidney failure, neuropathy, wounds to bilateral legs- goes to wound clinic. ATRIAL FIB DUE TO LOW MAGNESIUM, FELL 2016 Last Myocardial Infarction Date:: 1994 History of Any Multi-Drug Resistant Organisms: MRSA, Other MDRO Date of last positivie culture/infection: 04/19/11-MRSA MDRO Source:: MDRO-Right Leg; MRSA-Unknown Past Surgical History: Cholecystectomy, Coronary Bypass/CABG, Heart Catheterization With Stent, Pacemaker, Tonsillectomy Additional Past Surgical History / Comment(s): Defibrillator, pacemaker, breast reduction, varicous veins, wound on bilat leg Past Anesthesia/Blood Transfusion Reactions: No Reported Reaction Additional Past Anesthesia/Blood Transfusion Reaction / Comment(s): allergic to propofol Date of Last Stent Placement:: 1994 Type of Cardiac Device: Permanent Pacemaker Device Placement Date:: 2011 Past Psychological History: No Psychological Hx Reported Smoking Status: Never smoker Past Alcohol Use History: None Reported Past Drug Use History: None Reported - Past Family History Mother Family Medical History: CVA/TIA Additional Family Medical History / Comment(s): at age 43 of a stroke Father Family Medical History: Diabetes Mellitus Additional Family Medical History / Comment(s): age 81 General Exam - General Exam Comments Initial Comments: This is a well-developed well-nourished awake alert but lethargic female Limitations: no limitations, altered mental status General appearance: alert, in no apparent distress Head exam: Present: atraumatic, normocephalic, normal inspection Eye exam: Present: normal appearance, PERRL, EOMI. Absent: scleral icterus, conjunctival injection, periorbital swelling ENT exam: Present: mucous membranes dry Neck exam: Present: normal inspection. Absent: tenderness, meningismus, lymphadenopathy Respiratory exam: Present: decreased breath sounds, other (Basilar crackles). Absent: respiratory distress, wheezes, rales, rhonchi, stridor Cardiovascular Exam: Present: normal rhythm, irregular rhythm, normal heart sounds. Absent: systolic murmur, diastolic murmur, rubs, gallop, clicks GI/Abdominal exam: Present: soft, normal bowel sounds. Absent: distended, tenderness, guarding, rebound, rigid Extremities exam: Present: full ROM, normal capillary refill, other (Was in both lower extremities right one has dressing upon it. Liquid has dressings when taken on the reveals some superficial abrasions.). Absent: tenderness, pedal edema, joint swelling, calf tenderness Back exam: Present: normal inspection Neurological exam: Present: alert, oriented X3, CN II-XII intact Psychiatric exam: Present: normal affect, normal mood Skin exam: Present: warm, dry, intact, normal color. Absent: rash Course Vital Signs 11/30/17 22:45 Temperature 100.7 F H Pulse Rate 79 Respiratory 20 Rate Blood Pressure 159/69 O2 Sat by Pulse 96 Oximetry - Reevaluation(s) Reevaluation #1: 12/01/17 00:28 I did reevaluate the patient shortly after arrival she revealed no new symptoms and was resting recently comfortably. Medical Decision Making - Medical Decision Making I did discuss findings with the patient and family patient will be admitted she does have an FUO at this time a definitive source is not identified she has have a fever and elevated white blood cell count he started on antibiotics. He does have evidence of CHF and hyperkalemia. She will be restarted on Lasix - Lab Data Result diagrams: 11/30/17 23:00 11/30/17 23:00 Lab Results 11/30/17 11/30/17 11/30/17 Range/Units 22:50 23:00 23:00 WBC (3.8-10.6) k/uL RBC (3.80-5.40) m/uL Hgb (11.4-16.0) gm/dL Hct (34.0-46.0) % MCV (80.0-100.0) fL MCH (25.0-35.0) pg MCHC (31.0-37.0) g/dL RDW (11.5-15.5) % Plt Count (150-450) k/uL Neutrophils % % Lymphocytes % % Monocytes % % Eosinophils % % Basophils % % Neutrophils # (1.3-7.7) k/uL Lymphocytes # (1.0-4.8) k/uL Monocytes # (0-1.0) k/uL Eosinophils # (0-0.7) k/uL Basophils # (0-0.2) k/uL Hypochromasia PT 11.0 (9.0-12.0) sec INR 1.1 (<1.2) APTT 21.2 L (22.0-30.0) sec Sodium (137-145) mmol/L Potassium (3.5-5.1) mmol/L Chloride (98-107) mmol/L Carbon Dioxide (22-30) mmol/L Anion Gap mmol/L BUN (7-17) mg/dL Creatinine (0.52-1.04) mg/dL Est GFR (CKD-EPI)AfAm (>60 ml/min/1.73 sqM) Est GFR (CKD-EPI)NonAf (>60 ml/min/1.73 sqM) Glucose (74-99) mg/dL POC Glucose (mg/dL) 380 H (75-99) mg/dL POC Glu [employer] ID [place] Plasma Lactic Acid Asif (0.7-2.0) mmol/L Calcium (8.4-10.2) mg/dL Magnesium (1.6-2.3) mg/dL Total Bilirubin (0.2-1.3) mg/dL AST (14-36) U/L ALT (9-52) U/L Alkaline Phosphatase (38-126) U/L Ammonia <9 (<30) umol/L Total Creatine Kinase (30-135) U/L CK-MB (CK-2) (0.0-2.4) ng/mL CK-MB (CK-2) Rel Index Troponin I (0.000-0.034) ng/mL NT-Pro-B Natriuret Pep pg/mL Total Protein (6.3-8.2) g/dL Albumin (3.5-5.0) g/dL Urine Color Urine Appearance (Clear) Urine pH (5.0-8.0) Ur Specific [place] (1.001-1.035) Urine Protein (Negative) Urine Glucose (UA) (Negative) Urine Ketones (Negative) Urine Blood (Negative) Urine Nitrite (Negative) Urine Bilirubin (Negative) Urine Urobilinogen (<2.0) mg/dL Ur Leukocyte Esterase (Negative) Urine RBC (0-5) /hpf Urine WBC (0-5) /hpf Ur Squamous Epith Cells (0-4) /hpf Hyaline Casts (0-2) /lpf Urine Mucus (None) /hpf Influenza Type A RNA (Not Detectd) Influenza Type B (PCR) (Not Detectd) 11/30/17 11/30/17 11/30/17 Range/Units 23:00 23:00 23:00 WBC 15.0 H (3.8-10.6) k/uL RBC 3.63 L (3.80-5.40) m/uL Hgb 11.0 L (11.4-16.0) gm/dL Hct 35.2 (34.0-46.0) % MCV 97.1 (80.0-100.0) fL MCH 30.4 (25.0-35.0) pg MCHC 31.3 (31.0-37.0) g/dL RDW 15.8 H (11.5-15.5) % Plt Count 145 L (150-450) k/uL Neutrophils % 89 % Lymphocytes % 4 % Monocytes % 5 % Eosinophils % 1 % Basophils % 0 % Neutrophils # 13.4 H (1.3-7.7) k/uL Lymphocytes # 0.6 L (1.0-4.8) k/uL Monocytes # 0.7 (0-1.0) k/uL Eosinophils # 0.1 (0-0.7) k/uL Basophils # 0.0 (0-0.2) k/uL Hypochromasia Slight PT (9.0-12.0) sec INR (<1.2) APTT (22.0-30.0) sec Sodium (137-145) mmol/L Potassium (3.5-5.1) mmol/L Chloride (98-107) mmol/L Carbon Dioxide (22-30) mmol/L Anion Gap mmol/L BUN (7-17) mg/dL Creatinine (0.52-1.04) mg/dL Est GFR (CKD-EPI)AfAm (>60 ml/min/1.73 sqM) Est GFR (CKD-EPI)NonAf (>60 ml/min/1.73 sqM) Glucose (74-99) mg/dL POC Glucose (mg/dL) (75-99) mg/dL POC Glu [employer] ID Plasma Lactic Acid Asif (0.7-2.0) mmol/L Calcium (8.4-10.2) mg/dL Magnesium (1.6-2.3) mg/dL Total Bilirubin (0.2-1.3) mg/dL AST (14-36) U/L ALT (9-52) U/L Alkaline Phosphatase (38-126) U/L Ammonia (<30) umol/L Total Creatine Kinase 21 L (30-135) U/L CK-MB (CK-2) 0.5 (0.0-2.4) ng/mL CK-MB (CK-2) Rel Index 2.4 Troponin I 0.022 (0.000-0.034) ng/mL NT-Pro-B Natriuret Pep 37173 pg/mL Total Protein (6.3-8.2) g/dL Albumin (3.5-5.0) g/dL Urine Color Urine Appearance (Clear) Urine pH (5.0-8.0) Ur Specific [place] (1.001-1.035) Urine Protein (Negative) Urine Glucose (UA) (Negative) Urine Ketones (Negative) Urine Blood (Negative) Urine Nitrite (Negative) Urine Bilirubin (Negative) Urine Urobilinogen (<2.0) mg/dL Ur Leukocyte Esterase (Negative) Urine RBC (0-5) /hpf Urine WBC (0-5) /hpf Ur Squamous Epith Cells (0-4) /hpf Hyaline Casts (0-2) /lpf Urine Mucus (None) /hpf Influenza Type A RNA (Not Detectd) Influenza Type B (PCR) (Not Detectd) 11/30/17 11/30/17 11/30/17 Range/Units 23:00 23:00 23:00 WBC (3.8-10.6) k/uL RBC (3.80-5.40) m/uL Hgb (11.4-16.0) gm/dL Hct (34.0-46.0) % MCV (80.0-100.0) fL MCH (25.0-35.0) pg MCHC (31.0-37.0) g/dL RDW (11.5-15.5) % Plt Count (150-450) k/uL Neutrophils % % Lymphocytes % % Monocytes % % Eosinophils % % Basophils % % Neutrophils # (1.3-7.7) k/uL Lymphocytes # (1.0-4.8) k/uL Monocytes # (0-1.0) k/uL Eosinophils # (0-0.7) k/uL Basophils # (0-0.2) k/uL Hypochromasia PT (9.0-12.0) sec INR (<1.2) APTT (22.0-30.0) sec Sodium 133 L (137-145) mmol/L Potassium 6.0 H (3.5-5.1) mmol/L Chloride 97 L (98-107) mmol/L Carbon Dioxide 26 (22-30) mmol/L Anion Gap 10 mmol/L BUN 71 H (7-17) mg/dL Creatinine 1.30 H (0.52-1.04) mg/dL Est GFR (CKD-EPI)AfAm 46 (>60 ml/min/1.73 sqM) Est GFR (CKD-EPI)NonAf 40 (>60 ml/min/1.73 sqM) Glucose 372 H (74-99) mg/dL POC Glucose (mg/dL) (75-99) mg/dL POC Glu [employer] Driver ID Plasma Lactic Acid Asif 1.3 (0.7-2.0) mmol/L Calcium 9.4 (8.4-10.2) mg/dL Magnesium 2.8 H (1.6-2.3) mg/dL Total Bilirubin 1.0 (0.2-1.3) mg/dL AST 17 (14-36) U/L ALT 22 (9-52) U/L Alkaline Phosphatase 253 H (38-126) U/L Ammonia (<30) umol/L Total Creatine Kinase (30-135) U/L CK-MB (CK-2) (0.0-2.4) ng/mL CK-MB (CK-2) Rel Index Troponin I (0.000-0.034) ng/mL NT-Pro-B Natriuret Pep pg/mL Total Protein 6.3 (6.3-8.2) g/dL Albumin 3.7 (3.5-5.0) g/dL Urine Color Urine Appearance (Clear) Urine pH (5.0-8.0) Ur Specific [place] (1.001-1.035) Urine Protein (Negative) Urine Glucose (UA) (Negative) Urine Ketones (Negative) Urine Blood (Negative) Urine Nitrite (Negative) Urine Bilirubin (Negative) Urine Urobilinogen (<2.0) mg/dL Ur Leukocyte Esterase (Negative) Urine RBC (0-5) /hpf Urine WBC (0-5) /hpf Ur Squamous Epith Cells (0-4) /hpf Hyaline Casts (0-2) /lpf Urine Mucus (None) /hpf Influenza Type A RNA Not Detected (Not Detectd) Influenza Type B (PCR) Not Detected (Not Detectd) 11/30/17 Range/Units 23:50 WBC (3.8-10.6) k/uL RBC (3.80-5.40) m/uL Hgb (11.4-16.0) gm/dL Hct (34.0-46.0) % MCV (80.0-100.0) fL MCH (25.0-35.0) pg MCHC (31.0-37.0) g/dL RDW (11.5-15.5) % Plt Count (150-450) k/uL Neutrophils % % Lymphocytes % % Monocytes % % Eosinophils % % Basophils % % Neutrophils # (1.3-7.7) k/uL Lymphocytes # (1.0-4.8) k/uL Monocytes # (0-1.0) k/uL Eosinophils # (0-0.7) k/uL Basophils # (0-0.2) k/uL Hypochromasia PT (9.0-12.0) sec INR (<1.2) APTT (22.0-30.0) sec Sodium (137-145) mmol/L Potassium (3.5-5.1) mmol/L Chloride (98-107) mmol/L Carbon Dioxide (22-30) mmol/L Anion Gap mmol/L BUN (7-17) mg/dL Creatinine (0.52-1.04) mg/dL Est GFR (CKD-EPI)AfAm (>60 ml/min/1.73 sqM) Est GFR (CKD-EPI)NonAf (>60 ml/min/1.73 sqM) Glucose (74-99) mg/dL POC Glucose (mg/dL) (75-99) mg/dL POC Glu [employer] Driver ID Plasma Lactic Acid Asif (0.7-2.0) mmol/L Calcium (8.4-10.2) mg/dL Magnesium (1.6-2.3) mg/dL Total Bilirubin (0.2-1.3) mg/dL AST (14-36) U/L ALT (9-52) U/L Alkaline Phosphatase (38-126) U/L Ammonia (<30) umol/L Total Creatine Kinase (30-135) U/L CK-MB (CK-2) (0.0-2.4) ng/mL CK-MB (CK-2) Rel Index Troponin I (0.000-0.034) ng/mL NT-Pro-B Natriuret Pep pg/mL Total Protein (6.3-8.2) g/dL Albumin (3.5-5.0) g/dL Urine Color Yellow Urine Appearance Clear (Clear) Urine pH 6.0 (5.0-8.0) Ur Specific [place] 1.011 (1.001-1.035) Urine Protein Negative (Negative) Urine Glucose (UA) Negative (Negative) Urine Ketones Negative (Negative) Urine Blood Small H (Negative) Urine Nitrite Negative (Negative) Urine Bilirubin Negative (Negative) Urine Urobilinogen <2.0 (<2.0) mg/dL Ur Leukocyte Esterase Negative (Negative) Urine RBC 2 (0-5) /hpf Urine WBC 4 (0-5) /hpf Ur Squamous Epith Cells 3 (0-4) /hpf Hyaline Casts 7 H (0-2) /lpf Urine Mucus Rare H (None) /hpf Influenza Type A RNA (Not Detectd) Influenza Type B (PCR) (Not Detectd) - EKG Data -: EKG Interpreted by Me (Irregular rhythm rate is 73 QRS 122 QT/QTC of 440/44 right axis deviation a) - Radiology Data Radiology results: report reviewed (I did review the imaging and reports no definite acute findings.), image reviewed Critical Care Time Critical Care Time: Yes Critical Care Time: 31 minutes critical care time which includes initial presentation with history physical labs x-rays monitoring the EMS run and discussed with paramedics review of old charting reevaluation patient discussed with patient family discussion with Dr. Cesar admission orders and documentation of the above Disposition Clinical Impression: Congestive heart failure (CHF), Fever of unknown origin (FUO), Hyperkalemia, Febrile illness, acute Disposition: ADMITTED IP TO THIS HOSP Condition: Stable Referrals: Giovanny Cesar MD [Primary Care Provider] - 1-2 days
[2017-11-30 23:18] LABS: INR 1.1 (<1.2)
[2017-11-30 23:23] LABS: Albumin 3.7 g/dL (3.5-5.0); Calcium 9.4 mg/dL (8.4-10.2); Magnesium 2.8 mg/dL (1.6-2.3); Total Protein 6.3 g/dL (6.3-8.2)
[2017-11-30 23:31] LABS: Partial Thromboplastin Time 21.2 sec (22.0-30.0)
--- NOTE | 2017-11-30 23:32 | XR ---
EXAMINATION TYPE: XR chest 2V DATE OF EXAM: 11/30/2017 COMPARISON: 09/21/2017 HISTORY: Cough TECHNIQUE: Frontal and lateral views of the chest are obtained. FINDINGS: There is a relatively poor inspiration. There is slight elevated right diaphragm. Heart ap pears enlarged. There is no gross heart failure. There are sternal wires. There is left axillary pace maker with the lead tips over the right ventricle. I see no definite pleural effusion. IMPRESSION: Poor inspiration. No heart failure. Inspiration is worse than last exam.
[2017-11-30 23:40] LABS: Creatine Kinase MB 0.5 ng/mL (0.0-2.4); Troponin I 0.022 ng/mL (0.000-0.034)
[2017-12-01 00:08] LABS: Appearance,Urine Clear (Clear); Bilirubin,Urine Negative (Negative); Blood,Urine Small (Negative); Color,Urine Yellow; Glucose,Urine (UA) Negative (Negative); Hyaline Casts,Urine 7 /lpf (0-2); Ketones,Urine Negative (Negative); Leukocyte Esterase,Urine Negative (Negative); Mucus,Urine Rare /hpf; Nitrite,Urine Negative (Negative); Protein,Urine Negative (Negative); RBC,Urine 2 /hpf (0-5); Specific Gravity,Urine 1.011 (1.001-1.035); Squamous Epithelial Cell,Urine 3 /hpf (0-4); Urobilinogen,Urine <2.0 mg/dL (<2.0); WBC,Urine 4 /hpf (0-5)
[2017-12-01] MEDS ORDERED: MECLIZINE 25 MG TAB PO PRN (00:32)
[2017-12-01] MEDS ORDERED: NITROGLYCERIN SL TABS 0.4 MG TAB SUBLINGUAL PRN (00:32)
[2017-12-01] MEDS ORDERED: LEVOFLOXACIN 750MG-D5W PMX 750 MG in DEXTROSE/WATER 1 150ML.BAG IVPB STA (00:35)
[2017-12-01] MEDS ORDERED: SODIUM POLYSTYRENE SULFONATE 15 GM/60 ML BOTTLE PO STA (00:35)
[2017-12-01] MEDS: SODIUM CHLORIDE 0.9% 1,000 ML IV SCH ×2 (00:45→23:47)
[2017-12-01] MEDS ORDERED: IPRATROPIUM-ALBUTEROL 3 ML NEB INHALATION PRN (00:51)
[2017-12-01] MEDS ORDERED: ACETAMINOPHEN TAB 325 MG TAB PO PRN (00:54)
[2017-12-01] MEDS: HYDROcodone/APAP 10-325MG 1 EACH TAB PO PRN ×3 (00:59→20:24)
[2017-12-01] MEDS: FUROSEMIDE 10 MG/ML 4 ML VIAL IV SCH ×3 (03:11→23:38)
[2017-12-01 08:09] LABS: Glucose,Whole Blood 320 mg/dL (75-99)
[2017-12-01] MEDS: INSULIN ASPART 100 UNIT/ML 1 ML 10 ML VIAL SQ SCH ×4 (08:53→20:49)
[2017-12-01] MEDS: ISOSORBIDE MONONITRATE ER 60 MG TAB.ER.24H PO SCH (08:53)
[2017-12-01] MEDS: METOPROLOL TARTRATE 50 MG TAB PO SCH ×2 (08:53→20:23)
[2017-12-01] MEDS: DOCUSATE 100 MG CAP PO SCH ×2 (08:53→16:32)
[2017-12-01] MEDS: ALLOPURINOL 300 MG TAB PO SCH (08:53)
[2017-12-01] MEDS: HEPARIN SODIUM,PORCINE 5,000 UNIT/ML 1 ML VIAL SQ SCH ×2 (08:59→20:24)
[2017-12-01] MEDS ORDERED: NITROGLYCERIN OINT 1 INCH/GM PACKET TOPICAL SCH (09:00)
[2017-12-01] MEDS ORDERED: ASPIRIN 325 MG TAB PO SCH (09:00)
[2017-12-01] MEDS ORDERED: SACUBITRIL/VALSARTAN 24 MG-26 MG TABLET PO SCH (09:00)
[2017-12-01] MEDS ORDERED: FUROSEMIDE 40 MG TAB PO SCH (09:00)
[2017-12-01] MEDS: INSULN ASP PRT/INSULIN ASPART 100 UNIT/ML 10 ML VIAL SQ SCH ×2 (09:23→20:49)
[2017-12-01 11:42] LABS: Glucose,Whole Blood 320 mg/dL (75-99)
[2017-12-01 13:31] LABS: Hemoglobin A1C 7.2 % (4.0-6.0)
[2017-12-01] MEDS ORDERED: IOHEXOL 350 MG/ML 25 ML BOTTLE (ORAL USE) PO PRN (13:36)
[2017-12-01] MEDS: COLLAGENASE 250 UNIT/GM OINTMENT 30 GM TUBE TOPICAL SCH (14:00)
--- NOTE | 2017-12-01 14:11 | CT ---
EXAMINATION TYPE: CT brain wo con DATE OF EXAM: 12/01/2017 COMPARISON: 09/18/2017 HISTORY: 77-year-old female confusion TECHNIQUE: Examination was done in axial plane without intravenous contrast. Coronal and sagittal r econstructions performed. CT DLP: 999.8 mGycm Automated exposure control for dose reduction was used. FINDINGS: There is no evidence of acute intracranial hemorrhage, acute ischemic changes, mass, mass-effect, or extra-axial fluid collection. There is no effacement of cerebral sulci or basal subarachnoid cister ns. There is no hydrocephalus. There is no midline shift. Haskins-white matter distinction is preserv ed. There is mild to moderate generalized supratentorial volume loss especially central cerebral atrophy with secondary mild ventriculomegaly. Hao's ratio is calculated at 0.37 as compared to 0.36, previo usly. Patchy periventricular white matter hypodensities unchanged. Paranasal sinuses and mastoid air cells are well pneumatized. Orbits and globes are intact. IMPRESSION: Similar cerebral atrophy especially with central cerebral atrophy and secondary mild ventriculomegaly . Mild changes of chronic small vessel ischemic disease. No acute intracranial abnormality seen.
--- NOTE | 2017-12-01 14:36 | P.HPIM ---
History of Present Illness H&P Date: 12/01/17 Chief Complaint: Confusion This is a 77 -year-old female with a known past medical history of atrial fibrillation, congestive heart failure, diabetes mellitus, hypertension, myocardial infarction, CABG with cardiac stents, chronic kidney disease and hypothyroidism. She also has a chronic right leg wound in which she follows with Dr. Mejias in the wound care clinic. Patient is currently been at [facility] for rehabilitation. Her daughter patient has been very confused having hallucinations and not been herself. On admission her glucose was 447, she had a temp of 100.8 white count elevated at 15. Potassium elevated at 6. BNP elevated at 13,800. Urinalysis was negative influenza screen negative. Chest x-ray showed poor inspiration no evidence of an infection. EKG first-degree AV block with PACs. Patient received Kayexalate in the emergency room. Awaiting repeat potassium level. Patient reports having diarrhea off and on for the last 3 weeks. But it usually just one episode for that day and then a few days with a regular bowel movements. She denies any nausea or vomiting. Denies any chest pain. Occasional shortness of breath. She was started on IV Lasix for possible CHF exacerbation. Her insulin has been restarted. Patient reports taking her insulin at [address]. She denies any burning with urination. Denies any sore throat earache runny nose or congestion. Infectious disease, psychiatry and cardiology of been consulted. Infectious disease has placed patient on Rocephin and Flagyl for possible abdominal source. 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 Last Myocardial Infarction Date:: 2016 History of Any Multi-Drug Resistant Organisms: MRSA, Other MDRO Date of last positivie culture/infection: 04/19/11-MRSA MDRO Source:: MDRO-Right Leg; MRSA-Unknown Past Surgical History: Breast Surgery, Cholecystectomy, Coronary Bypass/CABG, Heart Catheterization, Heart Catheterization With Stent, Pacemaker, Tonsillectomy, Tubal Ligation Additional Past Surgical History / Comment(s): AICD/pacer, 3 vessel CABG 1993, 05/2017 cardiac cath with unsuccessful angioplasty diagonal branch, L leg stent done in [facility], bilateral breast reductions, L breast benign bx, R leg varicose vein stripping, bilateral lower leg debridements, PICC line now out , colonoscopy, bilateral carpal tunnel releases, laser surgery bilaterally-pt unsure for what reason. Past Anesthesia/Blood Transfusion Reactions: No Reported Reaction Additional Past Anesthesia/Blood Transfusion Reaction / Comment(s): allergic to propofol Date of Last Stent Placement:: 1993 Type of Cardiac Device: Permanent Pacemaker Device Placement Date:: 2011 upgraded per pt Smoking Status: Never smoker - Past Family History Mother Family Medical History: CVA/TIA Additional Family Medical History / Comment(s): at age 43 of a stroke Father Family Medical History: Diabetes Mellitus Additional Family Medical History / Comment(s): age 81 Medications and Allergies Home Medications Medication Instructions Recorded Confirmed Type Allopurinol [Zyloprim] 300 mg PO DAILY@0800 04/18/17 11/30/17 History Aspirin [Adult Low Dose Aspirin EC] 81 mg PO DAILY@0800 04/18/17 11/30/17 History Isosorbide Mononitrate ER [Imdur] 60 mg PO DAILY@0800 04/18/17 11/30/17 History Levothyroxine Sodium 25 mcg PO DAILY@1800 04/18/17 11/30/17 History Metoprolol Tartrate [Lopressor] 50 mg PO BID 04/18/17 11/30/17 History Nitroglycerin Sl Tabs [Nitrostat] 0.4 mg SUBLINGUAL Q5M PRN 04/18/17 11/30/17 History Cholecalciferol [Vitamin D3] 1,000 unit PO DAILY@1700 08/11/17 11/30/17 History Ferrous Sulfate [Feosol] 325 mg PO MOWEFR@1700 08/11/17 11/30/17 History Meclizine [Antivert] 25 mg PO Q8H PRN 08/11/17 11/30/17 History Sacubitril/Valsartan [Entresto 24 1 tab PO BID 08/11/17 11/30/17 History mg-26 mg Tablet] Spironolactone [Aldactone] 25 mg PO BID 08/11/17 11/30/17 History traZODone HCL 50 mg PO HS@199908/11/17 11/30/17 History Docusate [Colace] 100 mg PO BID@0800,1700 09/18/17 11/30/17 History Insulin NPL/Insulin Lispro 30 unit SQ DAILY@0800 09/18/17 11/30/17 History [humaLOG MIX 75-25 VIAL] Omeprazole [PriLOSEC] 20 mg PO HS 09/18/17 11/30/17 History Polyethylene Glycol 3350 [Miralax] 17 gm PO DAILY@1600 09/18/17 11/30/17 History Pregabalin [Lyrica] 75 mg PO HS@199909/18/17 11/30/17 History Hydrocodone/Acetaminophen [[place] 1 tab PO Q6H PRN #40 tablet 09/26/17 11/30/17 Rx 10-325] Furosemide [Lasix] 40 mg PO BID 11/30/17 11/30/17 History INSULIN LISPRO (HumaLOG) [HumaLOG] See Protocol SQ ACHS 11/30/17 11/30/17 History Insulin NPL/Insulin Lispro 10 unit SQ HS@199911/30/17 11/30/17 History [humaLOG MIX 75-25 VIAL] Allergies Allergy/AdvReac Type Severity Reaction Status Date / Time Penicillins Allergy Rash/Hives Verified 11/30/17 23:17 propofol Allergy Unknown Verified 11/30/17 23:17 sulfamethoxazole AdvReac Abdominal Verified 11/30/17 23:17 [From Bactrim] Pain trimethoprim [From Bactrim] AdvReac Abdominal Verified 11/30/17 23:17 Pain Physical Exam Vitals: Vital Signs Temp Pulse Pulse Resp BP BP Pulse Ox 12/01/17 08:24 55 L 2 L 124/60 12/01/17 08:09 96.8 F L 54 L 12 105/54 99 12/01/17 06:46 56 L 18 111/56 97 12/01/17 06:00 98.2 F 59 L 18 96/54 97 12/01/17 05:00 66 18 116/55 98 12/01/17 04:00 98.7 F 62 18 121/56 97 12/01/17 03:00 61 20 111/52 97 12/01/17 02:00 60 18 131/89 97 12/01/17 01:01 99.4 F 73 18 132/91 100 11/30/17 22:45 100.7 F H 79 20 159/69 96 Intake and Output 11/30/17 12/01/17 12/01/17 22:59 06:59 14:59 Other: Voiding Method Diaper Incontinent # Voids 1 # Bowel Movements 1 Weight 81.647 kg Head normocephalic Neck supple Lungs diminished with a few crackles at bases Heart regular rate and rhythm S1-S2, no rub or gallop Abdomen is soft nontender nondistended positive bowel sounds no hepatosplenomegaly Extremities no edema. Right leg chronic leg wound with a lot of slough present yellowish in color Neuro alert and orientated to 3 Results CBC & Chem 7: 11/30/17 23:00 11/30/17 23:00 Labs: Abnormal Lab Results - Last 24 Hours (Table) 11/30/17 11/30/17 11/30/17 Range/Units 22:50 23:00 23:00 WBC (3.8-10.6) k/uL RBC (3.80-5.40) m/uL Hgb (11.4-16.0) gm/dL RDW (11.5-15.5) % Plt Count (150-450) k/uL Neutrophils # (1.3-7.7) k/uL Lymphocytes # (1.0-4.8) k/uL APTT 21.2 L (22.0-30.0) sec Sodium (137-145) mmol/L Potassium (3.5-5.1) mmol/L Chloride (98-107) mmol/L BUN (7-17) mg/dL Creatinine (0.52-1.04) mg/dL Glucose (74-99) mg/dL POC Glucose (mg/dL) 380 H (75-99) mg/dL Magnesium (1.6-2.3) mg/dL Alkaline Phosphatase (38-126) U/L Total Creatine Kinase 21 L (30-135) U/L Urine Blood (Negative) Hyaline Casts (0-2) /lpf Urine Mucus (None) /hpf 11/30/17 11/30/17 11/30/17 Range/Units 23:00 23:00 23:50 WBC 15.0 H (3.8-10.6) k/uL RBC 3.63 L (3.80-5.40) m/uL Hgb 11.0 L (11.4-16.0) gm/dL RDW 15.8 H (11.5-15.5) % Plt Count 145 L (150-450) k/uL Neutrophils # 13.4 H (1.3-7.7) k/uL Lymphocytes # 0.6 L (1.0-4.8) k/uL APTT (22.0-30.0) sec Sodium 133 L (137-145) mmol/L Potassium 6.0 H (3.5-5.1) mmol/L Chloride 97 L (98-107) mmol/L BUN 71 H (7-17) mg/dL Creatinine 1.30 H (0.52-1.04) mg/dL Glucose 372 H (74-99) mg/dL POC Glucose (mg/dL) (75-99) mg/dL Magnesium 2.8 H (1.6-2.3) mg/dL Alkaline Phosphatase 253 H (38-126) U/L Total Creatine Kinase (30-135) U/L Urine Blood Small H (Negative) Hyaline Casts 7 H (0-2) /lpf Urine Mucus Rare H (None) /hpf 12/01/17 12/01/17 Range/Units 08:07 11:38 WBC (3.8-10.6) k/uL RBC (3.80-5.40) m/uL Hgb (11.4-16.0) gm/dL RDW (11.5-15.5) % Plt Count (150-450) k/uL Neutrophils # (1.3-7.7) k/uL Lymphocytes # (1.0-4.8) k/uL APTT (22.0-30.0) sec Sodium (137-145) mmol/L Potassium (3.5-5.1) mmol/L Chloride (98-107) mmol/L BUN (7-17) mg/dL Creatinine (0.52-1.04) mg/dL Glucose (74-99) mg/dL POC Glucose (mg/dL) 320 H 320 H (75-99) mg/dL Magnesium (1.6-2.3) mg/dL Alkaline Phosphatase (38-126) U/L Total Creatine Kinase (30-135) U/L Urine Blood (Negative) Hyaline Casts (0-2) /lpf Urine Mucus (None) /hpf Thrombosis Risk Factor Assmnt - Choose All That Apply Any of the Below Risk Factors Present?: Yes Each Factor Represents 1 point: Heart failure (<1month), Medical pt on bed rest , Obesity (BMI >25) Other Risk Factors: Yes Each Risk Factor Represents 3 Points: Age 75 years or older, History of DVT/PE Thrombosis Risk Factor Assessment Total Risk Factor Score: 9 Thrombosis Risk Factor Assessment Level: High Risk Assessment and Plan Assessment: 1. Altered mental status changes: Exact etiology unclear. Possibly a metabolic encephalopathy secondary to infection, just of heart failure or hyperglycemia. Computed tomography scan of the brain shows no acute intracranial abnormality. 2. Fever of unknown origin: Urinalysis negative chest x-ray showing no pneumonia. Patient had an elevated white count and temperature 100.8 on admission. Infectious disease consulted they've added Rocephin and Flagyl for a possible intra-abdominal source. Computed tomography scan of the abdomen also ordered. Blood culture pending 3. Acute on chronic systolic congestive heart failure with an EF of 20-25% that was noted on echo in September 2017. Patient had elevated BNP on admission. Started on IV Lasix in the emergency room. Cardiology consulted. 4. Hallucinations consult psychiatry. No acute abnormality on computed tomography scan of the brain 5. Hyperkalemia: Aldactone and Entresto discontinued. Repeat potassium level. Patient received Kayexalate in the emergency room 6. Insulin-dependent diabetes mellitus with elevated blood sugar of 447 on admission. Resume Home insulin. Add sliding scale coverage. No ketones in urine 7. History of ischemic cardiomyopathy status post AICD 8. Chronic kidney disease, stage III 9. History of coronary artery disease with prior bypass surgery and cardiac Stents 10. Paroxysmal atrial fibrillation: Not on anticoagulation due to frequent falls 11. Chronic right leg wound: Followed at wound care center by Dr. Randell GI prophylaxis Protonix and DVT prophylaxis subcu heparin Time with Patient: Greater than 30 (Greater than 50% of the total time spent in counseling and coordination of care.I performed an examination of the patient and discussed their management with the physician [employer] Department Supervisor. I have reviewed the Physician [employer] Department Supervisor's notes and agree with the documented findings and plan of care)
[2017-12-01] MEDS: cefTRIAXone IN SWFI 1,000 MG/10 ML SYRINGE IVP SCH (15:06)
[2017-12-01 16:20] LABS: Albumin 3.7 g/dL (3.5-5.0); Calcium 8.9 mg/dL (8.4-10.2); Magnesium 2.5 mg/dL (1.6-2.3); Potassium 4.7 mmol/L (3.5-5.1); Total Bilirubin 0.8 mg/dL (0.2-1.3); Total Protein 6.5 g/dL (6.3-8.2)
[2017-12-01 16:21] LABS: Basophils % (A) 0 %; Eosinophils # (A) 0.2 k/uL (0-0.7); Eosinophils % (A) 1 %; HGB 10.9 gm/dL (11.4-16.0); Hypochromasia Slight; Lymphocytes % (A) 8 %; MCH 31.4 pg (25.0-35.0); MCHC 32.1 g/dL (31.0-37.0); Macrocytosis Slight; Monocytes # (A) 0.7 k/uL (0-1.0); Monocytes % (A) 6 %; Neutrophils # (A) 10.9 k/uL (1.3-7.7); Neutrophils % (A) 83 %; Platelet Count 147 k/uL (150-450); RBC 3.47 m/uL (3.80-5.40); RDW 15.7 % (11.5-15.5); WBC 13.1 k/uL (3.8-10.6)
[2017-12-01] MEDS: POLYETHYLENE GLYCOL 3350 17 GM POWD.PACK PO SCH (16:31)
[2017-12-01] MEDS: metroNIDAZOLE-NS PMX 500 MG in SALINE 1 100ML.BAG IVPB SCH ×2 (16:31→23:38)
--- NOTE | 2017-12-01 16:50 | CT ---
EXAMINATION TYPE: CT abdomen pelvis wo con DATE OF EXAM: 12/01/2017 COMPARISON: 05/23/2017 HISTORY: Patient poor historian. Abdominal pain and distention. CT DLP: 802.8 mGycm Automated exposure control for dose reduction was used. TECHNIQUE: Helical acquisition of images was performed from the lung bases through the pelvis. FINDINGS: There is a mild right pleural effusion. Heart is enlarged. There is some mild infiltrate and atelecta sis at the right lung base. There is no pericardial effusion. There is ascites fluid throughout the abdomen. Liver shows no focal defect. Bile ducts are not dilate d. There is no evidence of a splenic mass. I see no pancreatic mass. There is atherosclerotic vascula r calcification. Kidneys of normal size. There is no hydronephrosis. There is no retroperitoneal adenopathy. I see no evidence of a bowel obstruction. I see no intestinal wall thickening. There is calcification in the uterus. Bladder distends smoothly. There is no evidence of a pelvic mass. There is a degenera tive first-degree L5-S1 spondylolisthesis. There is multilevel spondylotic change in the lumbar spine . I see no compression fracture. There is subcutaneous edema around the pelvis. IMPRESSION: CARDIOMEGALY. RIGHT PLEURAL EFFUSION. MILD ATELECTASIS AT THE RIGHT LUNG BASE. PLEURAL FLUID IS INCRE ASED COMPARED TO OLD EXAM. THERE IS IMPROVED AERATION OF THE LUNG BASES COMPARED TO OLD EXAM. THERE I S NEW ASCITES FLUID IN THE ABDOMEN COMPARED TO OLD EXAM. THIS COULD RELATE TO CHRONIC CONGESTIVE HEAR T FAILURE. CALCIFIED UTERINE FIBROIDS. THERE IS A STABLE SMALL RIGHT INGUINAL HERNIA THAT CONTAINS FAT. THERE ARE STABLE VARICOSE VEINS IN T HE SUPRAPUBIC REGION THAT RAISES THE POSSIBILITY OF PELVIC VENOUS OBSTRUCTION. EXAM IS LIMITED WITHOU T CONTRAST.
[2017-12-01 17:25] LABS: Glucose,Whole Blood 229 mg/dL (75-99)
[2017-12-01] MEDS: CHOLECALCIFEROL 1,000 UNIT TAB PO SCH (17:34)
[2017-12-01] MEDS: LEVOTHYROXINE 25 MCG TAB PO SCH (17:34)
[2017-12-01] MEDS ORDERED: PREGABALIN 75 MG CAP PO SCH (20:00)
[2017-12-01] MEDS: PANTOPRAZOLE 40 MG TABLET PO SCH (20:23)
[2017-12-01] MEDS: traZODone HCL 50 MG TAB PO SCH (20:23)
[2017-12-01 21:07] LABS: Glucose,Whole Blood 210 mg/dL (75-99)
--- NOTE | 2017-12-01 22:33 | CONS ---
CONSULTATION DATE OF SERVICE: 12/01/2017. REASON FOR CONSULTATION: Fever of unknown origin. HISTORY OF PRESENT ILLNESS: The patient is a 77-year-old female right lower extremity venous stasis ulcer at [facility] for wound care currently being treated with dressing to the right leg wound. The patient has been sent to the ER at [facility] for evaluation of her mental status changes apparently that have been progressively getting worse over the last day before presenting to hospital. She per the paramedics at this time fever 100.8, subsequently has been evaluated by the ER physician the patient, where the patient did have a chest x-ray which shows poor inspiration or heart failure where inspiration is worse than the last exam. The patient did have elevated white count of 15.0. UA has been negative. Infectious Disease was consulted for etiology of this fever and recommendation regarding antibiotic therapy. Influenza serology was negative as well. When asked specifically, the patient complaining of feeling weak and dehydrated, though she denies having any nausea or any vomiting. She complained of some shortness of breath. Very minimal cough, but not bringing up any sputum. She did mention abdominal distention that seemed to be progressively getting worse recently, but not specifically any abdominal pain. She denies nausea, no vomiting and no diarrhea. No burning or frequency of urine and denies any pain in the right leg wound area. REVIEW OF SYSTEMS: CONSTITUTIONAL: Positive for weakness along with a low-grade fever. EYES: No complaint. ENT: No complaint. RESPIRATORY: As per HPI. CARDIOVASCULAR: No complaint. GENITOURINARY: No complaint. GASTROINTESTINAL: As per HPI. MUSCULOSKELETAL: No complaint. INTEGUMENTARY: As per HPI. PSYCHOLOGICAL: No complaint. ENDOCRINE: No complaint. NEUROLOGICAL: No complaint. PAST MEDICAL HISTORY: Significant for atrial fibrillation, coronary artery disease, heart failure, diabetes mellitus, hypertension, hyperlipidemia, gastroesophageal reflux disease, osteoarthritis, pulmonary embolism, ischemic cardiomyopathy with a history of UTI, lower extremity venous stasis ulcer. PAST SURGICAL HISTORY: Cholecystectomy, coronary bypass graft, heart catheterization with stenting, pacemaker placement, tonsillectomy, tubal ligation and breast surgery. SOCIAL HISTORY: Currently a long-term resident. No history of smoking, drinking or drug use. FAMILY HISTORY: Mother with history of CVA, TIA. Father with history of diabetes. ALLERGIES: PENICILLIN, PROPOFOL, SULFAMETHOXAZOLE. MEDICATIONS: Include the patient is currently on: 1. Tylenol. 2. [place]. 3. DuoNeb. 4. Zyloprim. 5. Aspirin. 6. Vitamin D3. 7. Colace./. 8. Iron sulfate. 9. Lasix. 10.Heparin. 11.NovoLog. 12.Imdur. 13.Synthroid. 14.Antivert. 15.Lopressor. 16.Nitrostat. 17.Did receive a dose of Levaquin in the ER. EXAMINATION: Her blood pressure is 124/60 with a pulse of 59, temperature of 96.8, T-max 100.8. She is 100% on 2L nasal cannula. General description is an elderly female lying in bed in no distress. No tachypnea or accessory muscle for respiration use. HEENT shows pallor and no scleral icterus. Oral mucous membranes are dry. No pharyngeal erythema or thrush. NECK: Trachea is central. No thyromegaly. LUNGS: Unlabored breathing, decreased breath sounds bilaterally. No wheeze or crackle. HEART: S1, S2. Regular rate and rhythm. ABDOMEN: Soft, minimally distended. No guarding, rigidity, organomegaly. EXTREMITIES: No edema of feet. Right leg did have a wound on the mid thigh with slough tissue, but no sign of surrounding redness or any foul-smelling drainage. NEUROLOGICAL: Patient awake, alert, oriented x3. Mood and affect normal. LABS: Hemoglobin is 11, white count 15,000. BUN of 71, creatinine 1.30. . Liver enzymes are normal. Urine is negative. Influenza serology was negative. Chest x-ray report as mentioned above. DIAGNOSTIC IMPRESSION: 1. Patient admitted to hospital with mental status changes. The patient did have a low-grade fever. So far, workup in the ER, included a chest x-ray which shows poor inspiratory effort, did not mention any consolidation. UA has been negative. Right leg wound with some slough tissue, but no evidence of any cellulitis. The patient is complaining of some abdominal distention and some vague abdominal pain. Underlying abdominal source needs to be ruled out to be the etiology for this fever and mental status changes for which she will need to cover for the empiric gram- negative, both aerobes and anaerobes. 2. Right leg venous stasis ulcer. No cellulitis. Local wound care. PLAN: 1. We will obtain a CT abdomen and pelvis with oral contrast only. Avoid IV contrast because of the borderline kidney function and risk of nephrotoxicity. 2. Will empirically add Rocephin 1 g daily and Flagyl. The patient did have a history of PENICILLIN ALLERGY, has tolerated cephalosporin without any problem. 3. The right leg wound will be treated with Santyl followed by moist dressing change daily. 4. We will follow up on clinical condition and culture to further adjust medication if needed. Thank you for this consultation. Will follow this patient along with you. MMODL / IJN: [id number] /
[2017-12-02] MEDS ORDERED: VANCOMYCIN IV PER PHARMACY 1 EACH MISC MISCELLANE PRN (00:40)
[2017-12-02] MEDS ORDERED: VANCOMYCIN 1,500 MG in SODIUM CHLORIDE 0.9% 250 ML IVPB ONE (01:15)
[2017-12-02 07:47] LABS: Glucose,Whole Blood 103 mg/dL (75-99)
[2017-12-02] MEDS: ALLOPURINOL 300 MG TAB PO SCH ×2 (07:52→08:01)
[2017-12-02] MEDS: METOPROLOL TARTRATE 50 MG TAB PO SCH ×2 (07:52→21:37)
[2017-12-02] MEDS: ASPIRIN 81 MG PO SCH (07:52)
[2017-12-02] MEDS: ISOSORBIDE MONONITRATE ER 60 MG TAB.ER.24H PO SCH (07:52)
[2017-12-02] MEDS: DOCUSATE 100 MG CAP PO SCH ×2 (07:52→17:20)
[2017-12-02] MEDS: INSULN ASP PRT/INSULIN ASPART 100 UNIT/ML 10 ML VIAL SQ SCH ×4 (07:52→21:33)
[2017-12-02] MEDS: metroNIDAZOLE-NS PMX 500 MG in SALINE 1 100ML.BAG IVPB SCH (07:53)
[2017-12-02] MEDS: INSULIN ASPART 100 UNIT/ML 1 ML 10 ML VIAL SQ SCH ×4 (07:53→21:33)
[2017-12-02] MEDS: cefTRIAXone IN SWFI 1,000 MG/10 ML SYRINGE IVP SCH (07:53)
[2017-12-02] MEDS: COLLAGENASE 250 UNIT/GM OINTMENT 30 GM TUBE TOPICAL SCH (07:54)
[2017-12-02] MEDS: HEPARIN SODIUM,PORCINE 5,000 UNIT/ML 1 ML VIAL SQ SCH ×3 (07:54→21:43)
--- NOTE | 2017-12-02 09:04 | P.CN ---
Psychiatric Consult - . Consult date: 12/02/17 Consult:: 12/02/17 08:38 Patient was seen for a psychiatry consult regarding "hallucinations". It is not clear about the nature of hallucinations. Patient did agree that she was either hearing voices or seeing things recently but she could not give any details about these. Patient was sent here from a half-way because of change in her mental status along with high levels of blood glucose. Patient has multiple lab abnormalities including leukocytosis, Erythropenia, anemia, hypokalemia and hypochloremia, high levels of BUN and creatinine, elevated magnesium and alkaline phosphatase. Her blood sugar has come down to almost normal levels now. Blood culture shows growth of gram-positive cocci. Computed tomography scan of the brain shows cerebral atrophy with mild ventriculomegaly and mild chronic small vessel ischemic disease. Computed tomography scan of the abdomen and pelvis shows cardiomegaly, right pleural effusion, mild atelectasis of right lung base, new ascites which may be related to chronic congestive heart failure. Patient is on multiple medications including [place], Lyrica and trazodone which all can alter the mental status in this 77-year-old female with multiple physical problems. Patient was seen lying down in her bed. She is slow in responding to inquiries. She appears to be extremely confused, does not know where she is except to say that she is in the hospital. She has difficulty in finding proper utensils to eat her breakfast. She did not show any signs of responding to hallucinations. She has dysarthria, aphasia and apraxia. Assessment: Acute delirium secondary to multiple physical problems, metabolic disturbance, bacteremia etc. she most likely has underlying dementia as evidenced by the computed tomography scan of the brain report Suggestion: Continue what you're doing to correct her metabolic disturbance, infection and attending her physical problems. Discontinue [place] Lyrica and trazodone since these medications can make her delirium and dementia worse. Any and all drugs that cause [employer] SUPERVISOR sedation should be avoided since these will make her delirium and dementia worse, increase the fall risk, morbidity and mortality. Please refer this patient back for consultation if she continues to have hallucinations once her delirium is resolved and other medical conditions are stabilized.
[2017-12-02 09:16] LABS: Anisocytosis Slight; Basophils % (A) 0 %; Eosinophils # (A) 0.1 k/uL (0-0.7); Eosinophils % (A) 1 %; HCT 30.8 % (34.0-46.0); HGB 9.5 gm/dL (11.4-16.0); Hypochromasia Slight; Lymphocytes # (A) 0.3 k/uL (1.0-4.8); Lymphocytes % (A) 2 %; MCH 29.8 pg (25.0-35.0); MCHC 30.8 g/dL (31.0-37.0); MCV 96.7 fL (80.0-100.0); Mean Platelet Volume 7.9; Monocytes # (A) 0.7 k/uL (0-1.0); Monocytes % (A) 5 %; Neutrophils # (A) 13.5 k/uL (1.3-7.7); Neutrophils % (A) 92 %; Platelet Count 131 k/uL (150-450); RBC 3.19 m/uL (3.80-5.40); RDW 16.1 % (11.5-15.5); WBC 14.7 k/uL (3.8-10.6)
[2017-12-02 09:39] LABS: Calcium 9.1 mg/dL (8.4-10.2); Magnesium 2.2 mg/dL (1.6-2.3); Potassium 4.6 mmol/L (3.5-5.1); Total Bilirubin 1.4 mg/dL (0.2-1.3); Total Protein 5.6 g/dL (6.3-8.2)
[2017-12-02] MEDS: HYDROcodone/APAP 10-325MG 1 EACH TAB PO PRN (10:44)
[2017-12-02] MEDS: FUROSEMIDE 10 MG/ML 4 ML VIAL IV SCH (10:45)
--- NOTE | 2017-12-02 11:59 | P.PN ---
Subjective Progress Note Date: 12/09/17 This is a 77 -year-old female with a known past medical history of atrial fibrillation, congestive heart failure, diabetes mellitus, hypertension, myocardial infarction, CABG with cardiac stents, chronic kidney disease and hypothyroidism. She also has a chronic right leg wound in which she follows with Dr. Mejias in the wound care clinic. Patient is currently been at [facility] for rehabilitation. Her daughter patient has been very confused having hallucinations and not been herself. On admission her glucose was 447, she had a temp of 100.8 white count elevated at 15. Potassium elevated at 6. BNP elevated at 13,800. Urinalysis was negative influenza screen negative. Chest x-ray showed poor inspiration no evidence of an infection. EKG first-degree AV block with PACs. Patient received Kayexalate in the emergency room. Awaiting repeat potassium level. Patient reports having diarrhea off and on for the last 3 weeks. But it usually just one episode for that day and then a few days with a regular bowel movements. She denies any nausea or vomiting. Denies any chest pain. Occasional shortness of breath. She was started on IV Lasix for possible CHF exacerbation. Her insulin has been restarted. Patient reports taking her insulin at [address] [place]. She denies any burning with urination. Denies any sore throat earache runny nose or congestion. Infectious disease, psychiatry and cardiology of been consulted. Infectious disease has placed patient on Rocephin and Flagyl for possible abdominal source. 12/02/2017 patient sleeping comfortably this morning when evaluated. She is arousable and able to answer questions. Poor appetite this morning. Reports that her legs are hurting. Her insulin was held this morning for blood sugar 101. Patient denies any chest pain or shortness of breath. Denies any nausea or vomiting. Did have a bowel movement after the Kayexalate. Potassium is coming down from 6-4.6. Denies any burning with urination. White count has come up from 13.1-14.7. Computed tomography scan of the brain with cerebral atrophy with central cerebral atrophy and secondary mild ventriculomegaly. Mild changes of chronic small vessel ischemic changes. No acute intracranial abnormality. Computed tomography scan of the abdomen showing cardiomegaly. Right pleural effusion. Mild atelectasis at the right lung base. Pleural fluid increased compared to old exam. There is improved aeration of lung bases compared to old exam. There is no ascites fluid in the abdomen.. Could correlate to chronic congestive heart failure. Calcified urine fibroids. Stable small right he will hernia that contains fat. Stable varicose veins in the suprapubic region that raises the possibility of pelvic venous obstruction. Patient is on IV Lasix. Still reporting some shortness of breath. Denies any chest pain. Denies any nausea or vomiting. Objective - Vital Signs Vital signs: Vital Signs Temp 98.9 F 12/02/17 07:00 Pulse 105 H 12/02/17 07:00 Resp 20 12/02/17 07:00 BP 148/50 12/02/17 07:00 Pulse Ox 97 12/02/17 07:00 Intake & Output 12/01/17 12/02/17 12/02/17 18:59 06:59 18:59 Intake Total 450 Balance 450 Weight 81.647 kg 81 kg Intake: Oral 450 Other: Voiding Method Bedside Commode Incontinent Incontinent # Voids 1 2 1 # Bowel Movements 1 2 - Exam Head normocephalic Neck supple Lungs crackles in the right lower base Heart regular rate and rhythm S1-S2, no rub or gallop Abdomen is soft nontender nondistended positive bowel sounds no hepatosplenomegaly Extremities no edema. Chronic leg wound on the right leg no evidence of acute infection Neuro alert and orientated to 3 - Labs CBC & Chem 7: 12/02/17 08:57 12/02/17 08:57 Labs: Abnormal Lab Results - Last 24 Hours (Table) 11/30/17 12/01/17 12/01/17 Range/Units 23:00 15:32 15:32 WBC 13.1 H (3.8-10.6) k/uL RBC 3.47 L (3.80-5.40) m/uL Hgb 10.9 L (11.4-16.0) gm/dL Hct (34.0-46.0) % MCHC (31.0-37.0) g/dL RDW 15.7 H (11.5-15.5) % Plt Count 147 L (150-450) k/uL Neutrophils # 10.9 H (1.3-7.7) k/uL Lymphocytes # (1.0-4.8) k/uL Sodium 133 L (137-145) mmol/L Chloride 95 L (98-107) mmol/L BUN 70 H (7-17) mg/dL Creatinine 1.21 H (0.52-1.04) mg/dL Glucose 218 H (74-99) mg/dL POC Glucose (mg/dL) (75-99) mg/dL Hemoglobin A1c 7.2 H (4.0-6.0) % Magnesium 2.5 H (1.6-2.3) mg/dL Total Bilirubin (0.2-1.3) mg/dL Alkaline Phosphatase 214 H (38-126) U/L Total Protein (6.3-8.2) g/dL Albumin (3.5-5.0) g/dL 12/01/17 12/01/17 12/02/17 Range/Units 17:17 20:39 07:24 WBC (3.8-10.6) k/uL RBC (3.80-5.40) m/uL Hgb (11.4-16.0) gm/dL Hct (34.0-46.0) % MCHC (31.0-37.0) g/dL RDW (11.5-15.5) % Plt Count (150-450) k/uL Neutrophils # (1.3-7.7) k/uL Lymphocytes # (1.0-4.8) k/uL Sodium (137-145) mmol/L Chloride (98-107) mmol/L BUN (7-17) mg/dL Creatinine (0.52-1.04) mg/dL Glucose (74-99) mg/dL POC Glucose (mg/dL) 229 H 210 H 103 H (75-99) mg/dL Hemoglobin A1c (4.0-6.0) % Magnesium (1.6-2.3) mg/dL Total Bilirubin (0.2-1.3) mg/dL Alkaline Phosphatase (38-126) U/L Total Protein (6.3-8.2) g/dL Albumin (3.5-5.0) g/dL 12/02/17 12/02/17 Range/Units 08:57 08:57 WBC 14.7 H (3.8-10.6) k/uL RBC 3.19 L (3.80-5.40) m/uL Hgb 9.5 L (11.4-16.0) gm/dL Hct 30.8 L (34.0-46.0) % MCHC 30.8 L (31.0-37.0) g/dL RDW 16.1 H (11.5-15.5) % Plt Count 131 L (150-450) k/uL Neutrophils # 13.5 H (1.3-7.7) k/uL Lymphocytes # 0.3 L (1.0-4.8) k/uL Sodium 134 L (137-145) mmol/L Chloride (98-107) mmol/L BUN 69 H (7-17) mg/dL Creatinine 1.50 H (0.52-1.04) mg/dL Glucose 101 H (74-99) mg/dL POC Glucose (mg/dL) (75-99) mg/dL Hemoglobin A1c (4.0-6.0) % Magnesium (1.6-2.3) mg/dL Total Bilirubin 1.4 H (0.2-1.3) mg/dL Alkaline Phosphatase 209 H (38-126) U/L Total Protein 5.6 L (6.3-8.2) g/dL Albumin 3.0 L (3.5-5.0) g/dL Microbiology - Last 24 Hours (Table) 11/30/17 23:00 Blood Culture - Final Blood Assessment and Plan Assessment: 1. Altered mental status changes: Possibly a metabolic encephalopathy secondary to infection, congestive heart failure or hyperglycemia. Computed tomography scan of the brain shows no acute intracranial abnormality. 2. Bacteremia with blood culture positive for gram-positive cocci. Patient started on IV vancomycin per infectious disease 3. Acute on chronic systolic congestive heart failure with an EF of 20-25% that was noted on echo in September 2017. Patient had elevated BNP on admission. Started on IV Lasix in the emergency room. Canals are following. Patient had slight increase in her creatinine up to 1.50. Monitor closely while on IV Lasix 4. Hallucinations and delirium evaluated by psychiatry. 5. Hyperkalemia: Aldactone and Entresto discontinued. Improved with Kayexalate. Potassium level 4.6 6. Insulin-dependent diabetes mellitus with elevated blood sugar of 447 on admission. continue Home insulin. Add sliding scale coverage. No ketones in urine. With sugars that show improvement. She was only 101 this morning. Continue to monitor. If remains low we'll make further adjustments to insulin. 7. History of ischemic cardiomyopathy status post AICD 8. Chronic kidney disease, stage III 9. History of coronary artery disease with prior bypass surgery and cardiac Stents 10. Paroxysmal atrial fibrillation: Not on anticoagulation due to frequent falls 11. Chronic right leg venous stasis ulcer: Followed at wound care center by Dr. Mejias. No evidence of cellulitis. Continue local wound care. Infectious disease following GI prophylaxis Protonix and DVT prophylaxis subcu heparin I performed an examination of the patient and discussed their management with the physician Public Aid Eligibility Assistant. I have reviewed the Physician Public Aid Eligibility Assistant's notes and agree with the documented findings and plan of care
[2017-12-02 12:31] LABS: Glucose,Whole Blood 142 mg/dL (75-99)
[2017-12-02] MEDS ORDERED: Magnesium Replacement Protocol 1 EACH MISC MISCELLANE PRN (13:33)
--- NOTE | 2017-12-02 13:37 | PN ---
PROGRESS NOTE DATE OF SERVICE: 12/02/2017. REASON FOR FOLLOWUP: Fever and bacteremia. INTERVAL HISTORY: I was called in around one in the morning for the patient. Blood cultures coming positive, gram-positive cocci. Repeat blood cultures were ordered and vancomycin was added. As of this morning, the patient is afebrile. She is breathing comfortably. Did mention that she almost choked on food last night. Denies significant chest pain. Minimal cough. No nausea, no vomiting. No abdominal pain and no diarrhea. PHYSICAL EXAMINATION: On examination, her blood pressure is 148/50 with a pulse of 105, temperature 98.9. She is 97% on 2 L of nasal cannula. General description is an elderly female up in the chair in no distress. RESPIRATORY SYSTEM: Unlabored breathing with decreased breath sounds at the bases, no wheeze. HEART: S1, S2. Regular rate and rhythm. ABDOMEN: Soft, slight distention. No guarding or rigidity. Right leg wound is currently dressed, no obvious drainage on the dressing. LABS: Hemoglobin 9.5, white count 14.7, BUN of 69, creatinine 1.50. DIAGNOSTIC IMPRESSION AND PLAN: 1. Patient admitted to the hospital with a fever with no clear focus. CT abdominal pelvis did show some evidence of ascites, but no acute abdomen. Now with evidence of a gram-positive bacteremia, repeat blood culture has been ordered. We will keep the patient on Rocephin and vancomycin while waiting for the final ID of this pathogen to determine further workup to look for the source. 2. Right leg wound venous stasis ulcer. Local wound care with Santyl followed by a moist dressing. MMODL / IJN: [id number] /
--- NOTE | 2017-12-02 13:37 | P.CRDCN ---
History of Present Illness Consult date: 12/02/17 History of present illness: Mrs. Cam is a pleasant 77-year-old female past medical history significant for coronary artery disease s/p bypass graffting, paroxysmal atrial fibrillation not on superintendent terminal anticoagulation despite Dr. Wall recommendations , systolic heart failure s/p AICD placement, diabetes mellitus, hypertension, dyslipidemia, ischemic cardiomyopathy and history of ventricular tachycardia. She sees Dr. Wall in the office. We have been consulted to see her for heart failure. She was brought to the hospital by her daughter for change in mental status and hallucinations. She is currently living at [facility] for rehabilitation. On admission she was found to be febrile with elevated blood glucose. She has also been having diarrhea over the previous 3 weeks. Potassium was 6.0, WBC 15.0, plt 145, cr 1.3, magnesium 2.8, proBNP 13,800 and ammonia 253. She was given kaexylate in the ED, repeat this morning 4.6. Magnesium this morning 2.2. She is seen sitting up in bed in no acute distress although she is very confused about why she is here. She denies chest pain, shortness of breath, dizziness, palpitations, diaphoresis, nausea or vomiting. Currently being treated for metabolic encephalopathy. EKG on arrival reveals sinus mechanism with first degree AV block, right axis deviation and non-specific ST T-wave changes. Chest x-ray shows no overt heart failure. No acute cardiopulmonary process. CT abdomen and pelvis reveals cardiomegaly, right pleural effusion, mild atelectasis at the right lung base, pleural fluid is increased compared to old exam, improved aeration of the lung bases, new ascites fluid in the abdomen compared to old exam, stable right inguinal hernia and stable varicose veins in the suprapubic region. CT of the brain reveals cerebral atrophy and secondary mild ventriculomegaly. Mild changes of chronic small vessel ischemic disease with no acute intracranial abnormality seen. Most recent cardiac catheterization 05/2017 reveals 100% occluded proximal LAD, proximal circumflex and proximal RCA. At that time MOLINA-LAS patent; SVG-LAD patent; SVG-RCA is occluded. 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 Last Myocardial Infarction Date:: 2016 History of Any Multi-Drug Resistant Organisms: MRSA, Other MDRO Date of last positivie culture/infection: 04/19/11-MRSA MDRO Source:: MDRO-Right Leg; MRSA-Unknown Past Surgical History: Breast Surgery, Cholecystectomy, Coronary Bypass/CABG, Heart Catheterization, Heart Catheterization With Stent, Pacemaker, Tonsillectomy, Tubal Ligation Additional Past Surgical History / Comment(s): AICD/pacer, 3 vessel CABG 1993, 05/2017 cardiac cath with unsuccessful angioplasty diagonal branch, L leg stent done in [facility], bilateral breast reductions, L breast benign bx, R leg varicose vein stripping, bilateral lower leg debridements, PICC line now out , colonoscopy, bilateral carpal tunnel releases, laser surgery bilaterally-pt unsure for what reason. Past Anesthesia/Blood Transfusion Reactions: No Reported Reaction Additional Past Anesthesia/Blood Transfusion Reaction / Comment(s): allergic to propofol Date of Last Stent Placement:: 1993 Type of Cardiac Device: Permanent Pacemaker Device Placement Date:: 2011 upgraded per pt Smoking Status: Never smoker - Past Family History Mother Family Medical History: CVA/TIA Additional Family Medical History / Comment(s): at age 43 of a stroke Father Family Medical History: Diabetes Mellitus Additional Family Medical History / Comment(s): age 81 Medications and Allergies Home Medications Medication Instructions Recorded Confirmed Type Allopurinol [Zyloprim] 300 mg PO DAILY@0804/18/17 11/30/17 History Aspirin [Adult Low Dose Aspirin EC] 81 mg PO DAILY@0804/18/17 11/30/17 History Isosorbide Mononitrate ER [Imdur] 60 mg PO DAILY@0804/18/17 11/30/17 History Levothyroxine Sodium 25 mcg PO DAILY@1800 04/18/17 11/30/17 History Metoprolol Tartrate [Lopressor] 50 mg PO BID 04/18/17 11/30/17 History Nitroglycerin Sl Tabs [Nitrostat] 0.4 mg SUBLINGUAL Q5M PRN 04/18/17 11/30/17 History Cholecalciferol [Vitamin D3] 1,000 unit PO DAILY@1700 08/11/17 11/30/17 History Ferrous Sulfate [Feosol] 325 mg PO MOWEFR@1700 08/11/17 11/30/17 History Meclizine [Antivert] 25 mg PO Q8H PRN 08/11/17 11/30/17 History Sacubitril/Valsartan [Entresto 24 1 tab PO BID 08/11/17 11/30/17 History mg-26 mg Tablet] Spironolactone [Aldactone] 25 mg PO BID 08/11/17 11/30/17 History traZODone HCL 50 mg PO HS@199908/11/17 11/30/17 History Docusate [Colace] 100 mg PO BID@0800,1700 09/18/17 11/30/17 History Insulin NPL/Insulin Lispro 30 unit SQ DAILY@0800 09/18/17 11/30/17 History [humaLOG MIX 75-25 VIAL] Omeprazole [PriLOSEC] 20 mg PO HS 09/18/17 11/30/17 History Polyethylene Glycol 3350 [Miralax] 17 gm PO DAILY@1600 09/18/17 11/30/17 History Pregabalin [Lyrica] 75 mg PO HS@199909/18/17 11/30/17 History Hydrocodone/Acetaminophen [Breaks 1 tab PO Q6H PRN #40 tablet 09/26/17 11/30/17 Rx 10-325] Furosemide [Lasix] 40 mg PO BID 11/30/17 11/30/17 History INSULIN LISPRO (HumaLOG) [HumaLOG] See Protocol SQ ACHS 11/30/17 11/30/17 History Insulin NPL/Insulin Lispro 10 unit SQ HS@199911/30/17 11/30/17 History [humaLOG MIX 75-25 VIAL] Allergies Allergy/AdvReac Type Severity Reaction Status Date / Time Penicillins Allergy Rash/Hives Verified 11/30/17 23:17 propofol Allergy Unknown Verified 11/30/17 23:17 sulfamethoxazole AdvReac Abdominal Verified 11/30/17 23:17 [From Bactrim] Pain trimethoprim [From Bactrim] AdvReac Abdominal Verified 11/30/17 23:17 Pain Physical Exam Vitals: Vital Signs Temp Pulse Pulse Resp BP Pulse Ox 12/02/17 07:00 98.9 F 105 H 20 148/50 97 12/01/17 23:00 97.0 F L 65 18 97/57 98 12/01/17 20:23 56 L 158/62 12/01/17 15:27 95.9 F L 59 L 20 124/60 100 12/01/17 14:22 96.8 F L 73 16 123/56 100 Intake and Output 12/01/17 12/02/17 12/02/17 22:59 06:59 14:59 Intake Total 350 100 Balance 350 100 Intake: Oral 350 100 Other: Voiding Method Incontinent Incontinent # Voids 1 2 # Bowel Movements 2 Weight 81.647 kg Blood pressure 148/50 heart rate 105 afebrile since admission. GENERAL: This is a 77-year-old female in no apparent distress at the time of my examination. Obese. HEENT: Head is atraumatic, normocephalic. Pupils are equal, round. Sclerae anicteric. Conjunctivae are clear. Mucous membranes of the mouth are moist. Neck is supple. There is no jugular venous distention. No carotid bruit is heard. LUNGS: Diminished. Bibasliar rales, no rhonchi, no wheezes. No chest wall tenderness is noted on palpation or with deep breathing. HEART: Regular rate and rhythm with systolic murmur at the base, no rubs or gallops. S1 and S2 heard. ABDOMEN: Soft, nontender. Bowel sounds are heard. No organomegaly noted. EXTREMITIES: 1+ pitting bilateral lower extremity peripheral edema and no calf tenderness noted. VASCULAR: Radial and dorsalis pedis pulses palpated, no evidence of clubbing. NEUROLOGIC: Patient is awake, alert and disoriented. Results 12/02/17 08:57 12/02/17 08:57 Cardiac Enzymes 12/01/17 12/02/17 Range/Units 15:32 08:57 AST 17 17 (14-36) U/L CBC 12/01/17 12/02/17 Range/Units 15:32 08:57 WBC 13.1 H 14.7 H (3.8-10.6) k/uL RBC 3.47 L 3.19 L (3.80-5.40) m/uL Hgb 10.9 L 9.5 L (11.4-16.0) gm/dL Hct 34.0 30.8 L (34.0-46.0) % Plt Count 147 L 131 L (150-450) k/uL Comprehensive Metabolic Panel 12/01/17 12/02/17 Range/Units 15:32 08:57 Sodium 133 L 134 L (137-145) mmol/L Potassium 4.7 4.6 (3.5-5.1) mmol/L Chloride 95 L 99 (98-107) mmol/L Carbon Dioxide 25 25 (22-30) mmol/L BUN 70 H 69 H (7-17) mg/dL Creatinine 1.21 H 1.50 H (0.52-1.04) mg/dL Glucose 218 H 101 H (74-99) mg/dL Calcium 8.9 9.1 (8.4-10.2) mg/dL AST 17 17 (14-36) U/L ALT 20 21 (9-52) U/L Alkaline Phosphatase 214 H 209 H (38-126) U/L Total Protein 6.5 5.6 L (6.3-8.2) g/dL Albumin 3.7 3.0 L (3.5-5.0) g/dL Current Medications Generic Name Dose Route Start Last Admin Trade Name Raphaelq PRN Reason Stop Dose Admin Acetaminophen 325 mg 12/01/17 00:54 Tylenol Tab PO Q6H PRN Fever and/ or Pain Hydrocodone Bitart/Acetaminophen 1 each 12/01/17 00:32 12/01/17 20:24 Breaks 10 PO 1 each Q6H PRN Administration Pain Albuterol/Ipratropium 3 ml 12/01/17 00:51 Duoneb 0.5 Mg-3 Mg/3 Ml Soln INHALATION RT-QID PRN Shortness Of Breath Or Wheezing Allopurinol 300 mg 12/01/17 08:00 12/02/17 08:01 Zyloprim PO 300 mg DAILY@0800 [facility] Administration Aspirin 81 mg 12/01/17 15:17 12/02/17 07:52 Aspirin PO 81 mg DAILY [facility] Administration Ceftriaxone Sodium 1,000 mg 12/01/17 14:00 12/02/17 07:53 Rocephin IVP 1,000 mg Q24HR [facility] Administration Cholecalciferol 1,000 unit 12/01/17 17:00 12/01/17 17:34 Vitamin D3 PO 1,000 unit DAILY@1700 [facility] Administration Collagenase 1 applic 12/01/17 13:45 12/02/17 07:54 Santyl TOPICAL 1 applic DAILY [facility] Administration Docusate Sodium 100 mg 12/01/17 08:00 12/02/17 07:52 Colace PO 100 mg BID@0800,1700 [facility] Administration Ferrous Sulfate 325 mg 12/02/17 17:00 Feosol PO MOWEFR@1700 [facility] Furosemide 40 mg 12/01/17 00:30 12/01/17 23:38 Lasix IV 40 mg Q12H [facility] Administration Heparin Sodium (Porcine) 5,000 unit 12/01/17 09:00 12/02/17 07:54 Heparin SQ Not Given Q12HR [facility] Sodium Chloride 1,000 mls @ 20 mls/hr 12/01/17 00:30 12/01/17 23:47 Saline 0.9% IV 20 mls/hr .Q24H [facility] Administration Metronidazole 500 mg/ IV 100 mls @ 100 mls/hr 12/01/17 16:00 12/02/17 07:53 Solution IVPB 100 mls/hr Q8HR [facility] Administration Vancomycin HCl 1,500 mg/ 250 mls @ 125 mls/hr 12/02/17 21:00 Sodium Chloride IVPB Q24H [facility] Insulin Aspart 0 unit 12/01/17 07:30 12/02/17 07:53 Novolog SQ Not Given ACHS [facility] Protocol Insulin Aspart 30 unit 12/01/17 08:00 12/02/17 08:02 Novolog Mix 70-30 Vial SQ Not Given DAILY@0800 [facility] Insulin Aspart 10 unit 12/01/17 20:00 12/01/17 20:49 Novolog Mix 70-30 Vial SQ 10 unit HS@2000 [facility] Administration Iohexol 25 ml 12/01/17 13:36 Omnipaque 350 Mg/Ml (For Oral Use) PO 12/02/17 13:[address] Scan Isosorbide Mononitrate 60 mg 12/01/17 08:00 12/02/17 07:52 Imdur PO 60 mg DAILY@0800 [facility] Administration Levothyroxine Sodium 25 mcg 12/01/17 18:00 12/01/17 17:34 Synthroid PO 25 mcg DAILY@1800 [facility] Administration Meclizine HCl 25 mg 12/01/17 00:32 Antivert PO Q8H PRN Nausea Metoprolol Tartrate 50 mg 12/01/17 09:00 12/02/17 07:52 Lopressor PO 50 mg BID [facility] Administration Nitroglycerin 0.4 mg 12/01/17 00:32 Nitrostat SUBLINGUAL Q5M PRN Chest Pain Pantoprazole Sodium 40 mg 12/01/17 21:00 12/01/17 20:23 Protonix PO 40 mg HS [facility] Administration Polyethylene Glycol 17 gm 12/01/17 16:00 12/01/17 16:31 Miralax PO Not Given DAILY@1600 [facility] Pregabalin 75 mg 12/01/17 20:00 12/01/17 20:23 Lyrica PO 75 mg HS@2000 [facility] Administration Trazodone HCl 50 mg 12/01/17 20:00 12/01/17 20:23 Desyrel PO 50 mg HS@2000 [facility] Administration Intake and Output 12/01/17 12/02/17 12/02/17 22:59 06:59 14:59 Intake Total 350 100 Balance 350 100 Intake: Oral 350 100 Other: Voiding Method Incontinent Incontinent # Voids 1 2 # Bowel Movements 2 Weight 81.647 kg 12/02/17 08:57 12/02/17 08:57 Assessment and Plan Assessment: ASSESSMENT 1. Acute on chronic systolic heart failure. Last echo done 09/2017 reveals EF 20- 25%. Elevated proBNP on admission. 2. Hyperkalemia. Entresto and aldactone have been held. Repeat this morning after kaexylate 4.6. 3. Hypermagnesemia 4. Paroxysmal atrial fibrillation not on long-term anticoagulation. Currently maintaining sinus mechanism. 5. History of coronary artery disease status post bypass grafting. 6. Ischemic cardiomyopathy status post AICD placement 7. Diabetes mellitus 8. Dyslipidemia 9. Hypertension 10. Chronic kidney disease PLAN Decrease IV Lasix to daily dosing secondary to renal function. Daily weights and strict intake and output. Follow renal function and electrolytes closely. Ongoing telemetry monitoring. Further recommendations to follow based on clinical course. Thank you kindly for this consultation. Nurse Practitioner note has been reviewed, I agree with a documented findings and plan of care. Patient was seen and examined.
[2017-12-02] MEDS ORDERED: MAGNESIUM SULFATE-D5W PMX 1 GM in DEXTROSE/WATER 1 100ML.BAG IVPB SCH (14:00)
[2017-12-02] MEDS: POLYETHYLENE GLYCOL 3350 17 GM POWD.PACK PO SCH (14:58)
[2017-12-02] MEDS ORDERED: SODIUM CHLORIDE 0.9% 250 ML IV ONE (15:29)
[2017-12-02] MEDS: FERROUS SULFATE 325 MG TAB PO SCH (17:20)
[2017-12-02] MEDS: LEVOTHYROXINE 25 MCG TAB PO SCH (17:20)
[2017-12-02] MEDS: CHOLECALCIFEROL 1,000 UNIT TAB PO SCH (17:20)
[2017-12-02 17:35] LABS: Glucose,Whole Blood 328 mg/dL (75-99)
[2017-12-02] MEDS: HYDROcodone/APAP 7.5-325MG 1 EACH TAB PO PRN (17:37)
[2017-12-02 20:48] LABS: Glucose,Whole Blood 321 mg/dL (75-99)
[2017-12-02] MEDS ORDERED: VANCOMYCIN 1,500 MG in SODIUM CHLORIDE 0.9% 250 ML IVPB SCH (21:00)
[2017-12-02] MEDS: PANTOPRAZOLE 40 MG TABLET PO SCH (21:33)
[2017-12-02] MEDS: traZODone HCL 50 MG TAB PO SCH (21:37)
[2017-12-02] MEDS: PREGABALIN 50 MG CAP PO SCH (21:38)
[2017-12-03] MEDS: HYDROcodone/APAP 7.5-325MG 1 EACH TAB PO PRN ×2 (01:07→21:47)
[2017-12-03] MEDS: SODIUM CHLORIDE 0.9% 1,000 ML IV SCH (06:02)
[2017-12-03] MEDS: DOCUSATE 100 MG CAP PO SCH ×2 (07:37→16:25)
[2017-12-03] MEDS: FUROSEMIDE 40 MG TAB PO SCH (07:37)
[2017-12-03] MEDS: ISOSORBIDE MONONITRATE ER 60 MG TAB.ER.24H PO SCH (07:37)
[2017-12-03] MEDS: METOPROLOL TARTRATE 50 MG TAB PO SCH (07:38)
[2017-12-03] MEDS: INSULIN ASPART 100 UNIT/ML 1 ML 10 ML VIAL SQ SCH ×4 (07:40→21:49)
[2017-12-03 07:41] LABS: Glucose,Whole Blood 160 mg/dL (75-99)
[2017-12-03] MEDS: cefTRIAXone IN SWFI 1,000 MG/10 ML SYRINGE IVP SCH (07:52)
[2017-12-03] MEDS: HEPARIN SODIUM,PORCINE 5,000 UNIT/ML 1 ML VIAL SQ SCH ×2 (07:52→21:49)
[2017-12-03] MEDS: INSULN ASP PRT/INSULIN ASPART 100 UNIT/ML 10 ML VIAL SQ SCH ×2 (07:53→21:48)
[2017-12-03] MEDS: ASPIRIN 81 MG PO SCH (07:53)
[2017-12-03] MEDS: COLLAGENASE 250 UNIT/GM OINTMENT 30 GM TUBE TOPICAL SCH (07:53)
[2017-12-03] MEDS: ALLOPURINOL 300 MG TAB PO SCH (07:53)
[2017-12-03 08:43] LABS: Basophils % (A) 0 %; Eosinophils # (A) 0.2 k/uL (0-0.7); Eosinophils % (A) 2 %; HCT 35.1 % (34.0-46.0); HGB 10.8 gm/dL (11.4-16.0); Hypochromasia Moderate; Lymphocytes # (A) 0.6 k/uL (1.0-4.8); Lymphocytes % (A) 5 %; MCH 30.4 pg (25.0-35.0); MCHC 30.9 g/dL (31.0-37.0); MCV 98.6 fL (80.0-100.0); Macrocytosis Slight; Mean Platelet Volume 8.2; Monocytes # (A) 0.6 k/uL (0-1.0); Monocytes % (A) 5 %; Neutrophils # (A) 10.7 k/uL (1.3-7.7); Neutrophils % (A) 88 %; Platelet Count 124 k/uL (150-450); RBC 3.56 m/uL (3.80-5.40); RDW 15.8 % (11.5-15.5); WBC 12.2 k/uL (3.8-10.6)
[2017-12-03 08:49] LABS: Albumin 3.4 g/dL (3.5-5.0); Calcium 9.2 mg/dL (8.4-10.2); Magnesium 2.4 mg/dL (1.6-2.3); Total Bilirubin 0.6 mg/dL (0.2-1.3); Total Protein 6.1 g/dL (6.3-8.2)
[2017-12-03] MEDS ORDERED: FUROSEMIDE 10 MG/ML 4 ML VIAL IV SCH (09:00)
--- NOTE | 2017-12-03 10:41 | CONS ---
CONSULTATION This is a 77-year-old female. She has been admitted to [facility] with history of atrial fibrillation, congestive heart failure, diabetes mellitus, hypertension, myocardial infarction, post CABG. The patient has a venous ulcer right lower extremity under care of Dr. Mejias. The patient had a CT of the abdomen, which showed there is a stable varicosity seen in the suprapubic region that raises the possibility of a pelvic venous obstruction; exam is limited without contrast. At this point, patient has a chronic venous occlusive disease. If patient is stable, we will follow in the office. MMODL / IJN: [id number] /
[2017-12-03 12:09] LABS: Glucose,Whole Blood 74 mg/dL (75-99)
--- NOTE | 2017-12-03 12:23 | P.PN ---
Subjective Progress Note Date: 12/03/17 Principal diagnosis: CHF This is a 77-year-old female with past medical history significant for coronary artery disease and prior bypass surgery, paroxysmal atrial fibrillation, not on long-term anticoagulation despite Dr. Wall recommendations, systolic congestive heart failure with prior AICD, hypertension , diabetes, hyperlipidemia, ischemic cardiomyopathy, history of prior ventricular tachycardia. Patient was seen in consultation by Dr. Bradley, she was diuresed on IV Lasix for congestive heart failure. Was changed over to oral diuretics today. Nephrology had held her dose of Lasix because of an increase in her BUN and creatinine. This morning's BUN is 81 creatinine 1.8 potassium 5.0. Her blood pressure also has been running on the low side. The morning meds were held this morning, her blood pressure was 92/60. We will hold the Imdur, and decrease the dose of Lopressor, Objective - Vital Signs Vital signs: Vital Signs Temp 95.2 F L 12/03/17 07:00 Pulse 55 L 12/03/17 07:00 Resp 15 12/03/17 07:00 BP 92/68 12/03/17 07:00 Pulse Ox 100 12/03/17 07:00 Intake & Output 12/02/17 12/03/17 12/03/17 18:59 06:59 18:59 Weight 81 kg 73 kg Other: Voiding Method Incontinent Bedside Commode Bedside Commode Diaper Diaper Incontinent Incontinent # Voids 1 - Exam PHYSICAL EXAMINATION: HEENT: Head is atraumatic, normocephalic. Pupils equal, round. Neck is supple. There is no elevated jugular venous pressure. HEART EXAMINATION: Heart S1 and S2 systolic murmur is heard. CHEST EXAMINATION: lungs are clear with mild diminished air entry to the bases. ABDOMEN: Soft, nontender. Bowel sounds are heard. No organomegaly noted. EXTREMITIES: 2+ peripheral pulses with trace evidence of peripheral edema and no calf tenderness noted. NEUROLOGIC patient is awake, alert and oriented -3. . - Labs CBC & Chem 7: 12/03/17 08:11 12/03/17 08:11 Labs: Abnormal Lab Results - Last 24 Hours (Table) 12/02/17 12/02/17 12/02/17 Range/Units 12:28 16:48 20:47 WBC (3.8-10.6) k/uL RBC (3.80-5.40) m/uL Hgb (11.4-16.0) gm/dL MCHC (31.0-37.0) g/dL RDW (11.5-15.5) % Plt Count (150-450) k/uL Neutrophils # (1.3-7.7) k/uL Lymphocytes # (1.0-4.8) k/uL Sodium (137-145) mmol/L BUN (7-17) mg/dL Creatinine (0.52-1.04) mg/dL Glucose (74-99) mg/dL POC Glucose (mg/dL) 142 H 328 H 321 H (75-99) mg/dL Magnesium (1.6-2.3) mg/dL Alkaline Phosphatase (38-126) U/L Total Protein (6.3-8.2) g/dL Albumin (3.5-5.0) g/dL 12/03/17 12/03/17 12/03/17 Range/Units 07:35 08:11 08:11 WBC 12.2 H (3.8-10.6) k/uL RBC 3.56 L (3.80-5.40) m/uL Hgb 10.8 L (11.4-16.0) gm/dL MCHC 30.9 L (31.0-37.0) g/dL RDW 15.8 H (11.5-15.5) % Plt Count 124 L (150-450) k/uL Neutrophils # 10.7 H (1.3-7.7) k/uL Lymphocytes # 0.6 L (1.0-4.8) k/uL Sodium 136 L (137-145) mmol/L BUN 81 H* (7-17) mg/dL Creatinine 1.81 H (0.52-1.04) mg/dL Glucose 117 H (74-99) mg/dL POC Glucose (mg/dL) 160 H (75-99) mg/dL Magnesium 2.4 H (1.6-2.3) mg/dL Alkaline Phosphatase 190 H (38-126) U/L Total Protein 6.1 L (6.3-8.2) g/dL Albumin 3.4 L (3.5-5.0) g/dL 12/03/17 Range/Units 12:07 WBC (3.8-10.6) k/uL RBC (3.80-5.40) m/uL Hgb (11.4-16.0) gm/dL MCHC (31.0-37.0) g/dL RDW (11.5-15.5) % Plt Count (150-450) k/uL Neutrophils # (1.3-7.7) k/uL Lymphocytes # (1.0-4.8) k/uL Sodium (137-145) mmol/L BUN (7-17) mg/dL Creatinine (0.52-1.04) mg/dL Glucose (74-99) mg/dL POC Glucose (mg/dL) 74 L (75-99) mg/dL Magnesium (1.6-2.3) mg/dL Alkaline Phosphatase (38-126) U/L Total Protein (6.3-8.2) g/dL Albumin (3.5-5.0) g/dL Microbiology - Last 24 Hours (Table) 11/30/17 23:00 Blood Culture Gram Stain - Final Blood Blood Culture - Final Staphylococcus epidermidis 12/02/17 01:00 Blood Culture - Preliminary Blood No Growth after 24 hours Assessment and Plan Plan: ASSESSMENT 1. Acute on chronic systolic heart failure. Last echo done 09/2017 reveals EF 20- 25%. Elevated proBNP on admission. 2. Hyperkalemia. Entresto and aldactone have been held. Repeat this morning after kaexylate 4.6. 3. Hypermagnesemia 4. Paroxysmal atrial fibrillation not on long-term anticoagulation. Currently maintaining sinus mechanism. 5. History of coronary artery disease status post bypass grafting. 6. Ischemic cardiomyopathy status post AICD placement 7. Diabetes mellitus 8. Dyslipidemia 9. Hypertension 10. Chronic kidney disease Plan We'll discontinue the Imdur and decrease the dose of Lopressor to 25 mg one tablet by mouth twice a day. Check lytes BUN and creatinine in the morning. DNP note has been reviewed, I agree with a documented findings and plan of care. Patient was seen and examined.
--- NOTE | 2017-12-03 15:17 | P.PN ---
Subjective Patient is doing well today. She was hypotensive last night after getting 2 doses of IV Lasix. Her creatinine increased this morning to 1.8. Objective - Vital Signs Vital signs: Vital Signs Temp 95.2 F L 12/03/17 07:00 Pulse 55 L 12/03/17 07:00 Resp 15 12/03/17 07:00 BP 92/68 12/03/17 07:00 Pulse Ox 100 12/03/17 07:00 Intake & Output 12/02/17 12/03/17 12/03/17 18:59 06:59 18:59 Weight 81 kg 73 kg Other: Voiding Method Incontinent Bedside Commode Bedside Commode Diaper Diaper Incontinent Incontinent # Voids 1 - Exam General: The patient is awake and alert, in no distress Eye: there is normal conjunctiva bilaterally. Neck: The neck is supple, there is no JVD. Cardiovascular: Normal S1-S2, no S3-S4, no murmurs. Respiratory: Lungs clear to auscultation bilaterally Gastrointestinal: Abdomen is soft, nontender Musculoskeletal: There is +1 pedal edema. Neurological:. Speech is normal. Skin: Skin is warm and dry - Labs CBC & Chem 7: 12/03/17 08:11 12/03/17 08:11 Labs: Abnormal Lab Results - Last 24 Hours (Table) 12/02/17 12/02/17 12/03/17 Range/Units 16:48 20:47 07:35 WBC (3.8-10.6) k/uL RBC (3.80-5.40) m/uL Hgb (11.4-16.0) gm/dL MCHC (31.0-37.0) g/dL RDW (11.5-15.5) % Plt Count (150-450) k/uL Neutrophils # (1.3-7.7) k/uL Lymphocytes # (1.0-4.8) k/uL Sodium (137-145) mmol/L BUN (7-17) mg/dL Creatinine (0.52-1.04) mg/dL Glucose (74-99) mg/dL POC Glucose (mg/dL) 328 H 321 H 160 H (75-99) mg/dL Magnesium (1.6-2.3) mg/dL Alkaline Phosphatase (38-126) U/L Total Protein (6.3-8.2) g/dL Albumin (3.5-5.0) g/dL 12/03/17 12/03/17 12/03/17 Range/Units 08:11 08:11 12:07 WBC 12.2 H (3.8-10.6) k/uL RBC 3.56 L (3.80-5.40) m/uL Hgb 10.8 L (11.4-16.0) gm/dL MCHC 30.9 L (31.0-37.0) g/dL RDW 15.8 H (11.5-15.5) % Plt Count 124 L (150-450) k/uL Neutrophils # 10.7 H (1.3-7.7) k/uL Lymphocytes # 0.6 L (1.0-4.8) k/uL Sodium 136 L (137-145) mmol/L BUN 81 H* (7-17) mg/dL Creatinine 1.81 H (0.52-1.04) mg/dL Glucose 117 H (74-99) mg/dL POC Glucose (mg/dL) 74 L (75-99) mg/dL Magnesium 2.4 H (1.6-2.3) mg/dL Alkaline Phosphatase 190 H (38-126) U/L Total Protein 6.1 L (6.3-8.2) g/dL Albumin 3.4 L (3.5-5.0) g/dL Microbiology - Last 24 Hours (Table) 11/30/17 23:00 Blood Culture Gram Stain - Final Blood Blood Culture - Final Staphylococcus epidermidis 12/02/17 01:00 Blood Culture - Preliminary Blood No Growth after 24 hours Assessment and Plan Assessment: 1. Altered mental status changes: Possibly a metabolic encephalopathy secondary to infection, congestive heart failure or hyperglycemia. Computed tomography scan of the brain shows no acute intracranial abnormality. 2. Bacteremia: contamination. Culture grew staph epidermis. Vancomycin was discontinued. 3. Acute on chronic systolic congestive heart failure with an EF of 20-25% that was noted on echo in September 2017. Patient had elevated BNP on admission. Started on IV Lasix in the emergency room. Basic switch to oral given AK I 4. Hallucinations and delirium evaluated by psychiatry. 5. Hyperkalemia: Aldactone and Entresto discontinued. Improved with Kayexalate. Potassium level 4.6 may resume both medication when kidney function is back to baseline 6. Insulin-dependent diabetes mellitus: Continue current insulin regimen. 7. History of ischemic cardiomyopathy status post AICD 8. Acute kidney injury on Chronic kidney disease, stage III: Probably related to hypotension and Lasix use. Nephrology consulted. 9. History of coronary artery disease with prior bypass surgery and cardiac Stents 10. Paroxysmal atrial fibrillation: Not on anticoagulation due to frequent falls 11. Chronic right leg venous stasis ulcer: Followed at wound care center by Dr. Mejias. No evidence of cellulitis. Continue local wound care. Infectious disease following
[2017-12-03] MEDS: POLYETHYLENE GLYCOL 3350 17 GM POWD.PACK PO SCH (15:21)
[2017-12-03] MEDS: MIDODRINE 5 MG TAB PO SCH (16:24)
[2017-12-03] MEDS: CHOLECALCIFEROL 1,000 UNIT TAB PO SCH (16:24)
[2017-12-03] MEDS: LEVOTHYROXINE 25 MCG TAB PO SCH (16:25)
--- NOTE | 2017-12-03 17:23 | CONS ---
CONSULTATION DATE OF CONSULTATION: 12/03/2017 REASON FOR CONSULT: Renal failure. HISTORY OF PRESENT ILLNESS: Patient is a 77-year-old female who was admitted to the hospital initially on 11/30/2017 with the altered mentation. The patient was admitted from a alf. She had hyperglycemia and a temperature of 100.8 degrees Fahrenheit. One blood culture had grown Staph epi. The rest of the blood cultures are negative. Serum creatinine was 1.3 mg/dL on initial admission. It did go up to 1.8 today. Previous creatinine was 0.96 on 10/25/2017 and 1.19. The patient's blood pressure remains low with systolic in the 90s. She was also on vancomycin, which is now discontinued. UA is fairly unremarkable. The patient has not received any IV contrast. 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 PAST SURGICAL HISTORY: Coronary artery bypass surgery, pacemaker placement, breast reduction surgery, left breast biopsy for benign tumor, colonoscopy, carpal tunnel disease, right leg varicose vein stripping. SOCIAL HISTORY: Negative for smoking, drug abuse or alcohol abuse. MEDICATIONS PRIOR TO ADMISSION: Included: 1. Imdur. 2. Aspirin. 3. Zyloprim. 4. Lopressor. 5. Synthroid. 6. Vitamin D. 7. Iron. 8. Antivert. 9. Aldactone. 10.Colace. 11.Trazodone. 12.Entresto. 13.Insulin. 14.MiraLAX. 15.Lyrica. 16.Lasix. ALLERGIES: Include PENICILLIN, PROPOFOL, BACTRIM. REVIEW OF SYSTEMS: As per HPI. Other systems negative. EXAMINATION: Patient is comfortable, awake. She is not in any acute distress. Blood pressure is 92/68, heart rate 55 per minute. Patient is afebrile. HEART: S1, S2. LUNGS: Bilateral breath sounds are heard. Abdomen is soft, nontender, obese. Lower extremities show edema 1+ bilaterally with chronic skin changes noted. PROGRAM DIRECTOR/AIR PERSONALITY is grossly intact. LABS: Show sodium 136, potassium 5.0, BUN 81, serum creatinine 1.8. Hemoglobin 10.8 g/dL. Magnesium was 2.4. ASSESSMENT: 1. Acute kidney injury secondary to hypotension, currently nonoliguric; however, urine output is not accurately charted. We will need to closely monitor the urine output. Agree with discontinuation of vancomycin, given the worsening renal function. Lasix is currently at 40 mg p.o. daily, which we can continue. I will repeat another chest x-ray. 2. Acute on top of chronic systolic heart failure and on admission, status post diuresis. 3. Ischemic cardiomyopathy, ejection fraction 20%-25%. 4. Hyperkalemia, currently off of Aldactone and Entresto. 5. Paroxysmal atrial fibrillation, currently in sinus rhythm. PLAN: Monitor urine output. Continue current dose of Lasix. Repeat labs in a.m. and continue to avoid nephrotoxic agents. Thank you for this consultation. We will continue to follow the patient during her hospitalization. MMODL / IJN: [id number] /
[2017-12-03 17:30] LABS: Glucose,Whole Blood 125 mg/dL (75-99)
[2017-12-03 20:33] LABS: Glucose,Whole Blood 143 mg/dL (75-99)
[2017-12-03] MEDS: PANTOPRAZOLE 40 MG TABLET PO SCH (21:47)
[2017-12-03] MEDS: METOPROLOL TARTRATE 25 MG TAB PO SCH (21:48)
[2017-12-03] MEDS: traZODone HCL 50 MG TAB PO SCH (21:48)
[2017-12-03] MEDS: PREGABALIN 50 MG CAP PO SCH (21:49)
--- NOTE | 2017-12-03 21:59 | PN ---
PROGRESS NOTE DATE OF SERVICE: 12/03/2017 REASON FOR FOLLOWUP: 1. Fever with a question of possible pneumonia/UTI. 2. Positive blood culture, likely skin contamination. INTERVAL HISTORY: The patient is afebrile. She is breathing comfortably. Denies significant chest pain, shortness of breath or cough. Very minimal abdominal pain. No nausea, vomiting, or any diarrhea. EXAMINATION: Blood pressure 98/52 with a pulse of 87, temperature 95.6. She is 97% on room air. General description is an elderly female up in the chair in no distress. RESPIRATORY SYSTEM: Unlabored breathing with decreased breath sounds in the bases. No wheeze. HEART: S1, S2. Regular rate and rhythm. ABDOMEN: Soft. No tenderness. Right leg wounds is currently dressed. No obvious drainage on the dressing. LABS: Hemoglobin is 10.8, white count of 12.2 with a BUN of 81, creatinine 1.81. Blood culture with Staph epi. Blood culture repeat has been negative. DIAGNOSTIC IMPRESSION AND PLAN: 1. Patient probably Staphylococcus epidermidis, likely skin contamination. A repeat blood culture before starting the patient on vancomycin has been negative. We will discontinue vancomycin to decrease risk of nephrotoxicity. 2. Patient, who did have a low-grade fever on admission, with overall improvement on the Rocephin and a question of pneumonia, community acquired not entirely excluded. She did have very mild cough. Overall improvement of the fever with Rocephin, will be continued. 3. Patient with right leg wound. Local wound care with Santyl followed by moist dressing. 4. Daughter was present at bedside. Their questions were answered. MMODL / IJN: [id number] /
[2017-12-04 04:45] LABS: Glucose,Whole Blood 78 mg/dL (75-99)
[2017-12-04] MEDS: SODIUM CHLORIDE 0.9% 1,000 ML IV SCH ×2 (05:36→23:24)
[2017-12-04 07:52] LABS: Glucose,Whole Blood 152 mg/dL (75-99)
[2017-12-04] MEDS: ALLOPURINOL 300 MG TAB PO SCH (08:21)
[2017-12-04] MEDS: cefTRIAXone IN SWFI 1,000 MG/10 ML SYRINGE IVP SCH (08:21)
[2017-12-04] MEDS: HEPARIN SODIUM,PORCINE 5,000 UNIT/ML 1 ML VIAL SQ SCH ×2 (08:21→20:31)
[2017-12-04] MEDS: MIDODRINE 5 MG TAB PO SCH ×2 (08:21→17:37)
[2017-12-04] MEDS: ASPIRIN 81 MG PO SCH (08:21)
[2017-12-04] MEDS: DOCUSATE 100 MG CAP PO SCH ×3 (08:21→17:37)
[2017-12-04] MEDS: METOPROLOL TARTRATE 25 MG TAB PO SCH ×2 (08:21→20:29)
[2017-12-04] MEDS: FUROSEMIDE 40 MG TAB PO SCH (08:21)
[2017-12-04] MEDS: INSULIN ASPART 100 UNIT/ML 1 ML 10 ML VIAL SQ SCH ×4 (08:22→20:09)
[2017-12-04] MEDS: INSULN ASP PRT/INSULIN ASPART 100 UNIT/ML 10 ML VIAL SQ SCH ×2 (08:22→20:08)
[2017-12-04 08:56] LABS: Basophils # (A) 0.1 k/uL (0-0.2); Basophils % (A) 1 %; Eosinophils # (A) 0.4 k/uL (0-0.7); Eosinophils % (A) 4 %; HCT 33.3 % (34.0-46.0); HGB 10.7 gm/dL (11.4-16.0); Hypochromasia Slight; Lymphocytes # (A) 0.9 k/uL (1.0-4.8); Lymphocytes % (A) 9 %; MCH 31.2 pg (25.0-35.0); MCHC 32.3 g/dL (31.0-37.0); MCV 96.7 fL (80.0-100.0); Mean Platelet Volume 8.1; Monocytes # (A) 0.5 k/uL (0-1.0); Monocytes % (A) 5 %; Neutrophils # (A) 7.9 k/uL (1.3-7.7); Neutrophils % (A) 80 %; Platelet Count 123 k/uL (150-450); RBC 3.44 m/uL (3.80-5.40); RDW 15.6 % (11.5-15.5); WBC 9.9 k/uL (3.8-10.6)
[2017-12-04 09:09] LABS: Albumin 3.1 g/dL (3.5-5.0); Potassium 4.8 mmol/L (3.5-5.1); Total Bilirubin 0.5 mg/dL (0.2-1.3); Total Protein 5.7 g/dL (6.3-8.2)
[2017-12-04 12:28] LABS: Glucose,Whole Blood 82 mg/dL (75-99)
--- NOTE | 2017-12-04 13:57 | PN ---
PROGRESS NOTE DATE OF SERVICE: 12/04/2017. CHIEF COMPLAINT: Acute kidney injury. HISTORY: This morning patient is lying in bed. She is comfortable. She is not in any acute distress. Blood pressure is 109/44, heart rate 61 per minute, patient is afebrile. Examination of the heart S1, S2. Examination of lungs, bilateral breath sounds are heard. Abdomen is soft, nontender. Examination lower extremities shows 1+ edema bilaterally. RESEARCH AND DEVELOPMENT TESTER exam is grossly intact. LABS SHOW: Sodium 135, potassium 4.8, BUN 82, serum creatinine 1.7, albumin 3.1, hemoglobin 10.7 g/dL. ASSESSMENT: 1. Acute kidney injury secondary to hypotension hypoperfusion. Continue off of nephrotoxic agents. Renal function is slightly improved today. The patient does not appear to be significantly volume overloaded. Lasix is at 40 mg p.o. daily, which we can continue for now. 2. Congestive heart failure, acute on top of chronic, mainly systolic. Ejection fraction 20% to 25%. Currently, volume status has improved since admission. 3. Hyperkalemia, currently improved. 4. Paroxysmal atrial fibrillation, currently in sinus rhythm. PLAN: Continue current dose of Lasix. Repeat labs in a.m. Encourage increased oral intake. Continue with the midodrine. MMODL / IJN: [id number] /
--- NOTE | 2017-12-04 15:16 | P.PN ---
Subjective Patient is awake and alert. She is sitting up in the chair. No events overnight. Kidney function is not improving. Objective - Vital Signs Vital signs: Vital Signs Temp 97.1 F L 12/04/17 07:00 Pulse 61 12/04/17 07:00 Resp 16 12/04/17 07:00 BP 109/44 12/04/17 07:00 Pulse Ox 100 12/04/17 07:00 Intake & Output 12/03/17 12/04/17 12/04/17 18:59 06:59 18:59 Weight 73 kg 69 kg Other: Voiding Method Bedside Commode Bedside Commode Diaper Diaper Incontinent Incontinent # Voids 1 - Exam General: The patient is awake and alert, in no distress Eye: there is normal conjunctiva bilaterally. Neck: The neck is supple, there is no JVD. Cardiovascular: Normal S1-S2, no S3-S4, no murmurs. Respiratory: Lungs clear to auscultation bilaterally Gastrointestinal: Abdomen is soft, nontender Musculoskeletal: There is +1 pedal edema. Neurological:. Speech is normal. Skin: Skin is warm and dry - Labs CBC & Chem 7: 12/04/17 08:18 12/04/17 08:18 Labs: Abnormal Lab Results - Last 24 Hours (Table) 12/03/17 12/03/17 12/04/17 Range/Units 17:29 20:31 07:50 RBC (3.80-5.40) m/uL Hgb (11.4-16.0) gm/dL Hct (34.0-46.0) % RDW (11.5-15.5) % Plt Count (150-450) k/uL Neutrophils # (1.3-7.7) k/uL Lymphocytes # (1.0-4.8) k/uL Sodium (137-145) mmol/L BUN (7-17) mg/dL Creatinine (0.52-1.04) mg/dL Glucose (74-99) mg/dL POC Glucose (mg/dL) 125 H 143 H 152 H (75-99) mg/dL Alkaline Phosphatase (38-126) U/L Total Protein (6.3-8.2) g/dL Albumin (3.5-5.0) g/dL 12/04/17 12/04/17 Range/Units 08:18 08:18 RBC 3.44 L (3.80-5.40) m/uL Hgb 10.7 L (11.4-16.0) gm/dL Hct 33.3 L (34.0-46.0) % RDW 15.6 H (11.5-15.5) % Plt Count 123 L (150-450) k/uL Neutrophils # 7.9 H (1.3-7.7) k/uL Lymphocytes # 0.9 L (1.0-4.8) k/uL Sodium 135 L (137-145) mmol/L BUN 82 H* (7-17) mg/dL Creatinine 1.77 H (0.52-1.04) mg/dL Glucose 131 H (74-99) mg/dL POC Glucose (mg/dL) (75-99) mg/dL Alkaline Phosphatase 185 H (38-126) U/L Total Protein 5.7 L (6.3-8.2) g/dL Albumin 3.1 L (3.5-5.0) g/dL Microbiology - Last 24 Hours (Table) 12/02/17 01:00 Blood Culture - Preliminary Blood No Growth after 48 hours Assessment and Plan Assessment: 1. Altered mental status changes: Possibly a metabolic encephalopathy secondary to infection, congestive heart failure or hyperglycemia. Computed tomography scan of the brain shows no acute intracranial abnormality. 2. Bacteremia: contamination. Culture grew staph epidermis. Vancomycin was discontinued. 3. Acute on chronic systolic congestive heart failure with an EF of 20-25% that was noted on echo in September 2017. Patient had elevated BNP on admission. Started on IV Lasix in the emergency room. Basic switch to oral given AK I 4. Hallucinations and delirium evaluated by psychiatry. 5. Hyperkalemia: Aldactone and Entresto discontinued. Improved with Kayexalate. Potassium level 4.6 may resume both medication when kidney function is back to baseline 6. Insulin-dependent diabetes mellitus: Continue current insulin regimen. 7. History of ischemic cardiomyopathy status post AICD 8. Acute kidney injury on Chronic kidney disease, stage III: Probably related to hypotension and Lasix use. Nephrology consulted. 9. History of coronary artery disease with prior bypass surgery and cardiac Stents 10. Paroxysmal atrial fibrillation: Not on anticoagulation due to frequent falls 11. Chronic right leg venous stasis ulcer: Followed at wound care center by Dr. Mejias. No evidence of cellulitis. Continue local wound care. Infectious disease following
[2017-12-04 17:17] LABS: Glucose,Whole Blood 74 mg/dL (75-99)
[2017-12-04] MEDS: LEVOTHYROXINE 25 MCG TAB PO SCH (17:37)
[2017-12-04] MEDS: POLYETHYLENE GLYCOL 3350 17 GM POWD.PACK PO SCH (17:37)
[2017-12-04] MEDS: CHOLECALCIFEROL 1,000 UNIT TAB PO SCH (17:38)
[2017-12-04] MEDS: COLLAGENASE 250 UNIT/GM OINTMENT 30 GM TUBE TOPICAL SCH (17:38)
[2017-12-04 19:43] LABS: Glucose,Whole Blood 86 mg/dL (75-99)
[2017-12-04] MEDS: PREGABALIN 50 MG CAP PO SCH (20:32)
[2017-12-04] MEDS: PANTOPRAZOLE 40 MG TABLET PO SCH (20:32)
[2017-12-04] MEDS: traZODone HCL 50 MG TAB PO SCH (20:32)
[2017-12-04] MEDS: HYDROcodone/APAP 7.5-325MG 1 EACH TAB PO PRN (20:32)
--- NOTE | 2017-12-04 22:56 | P.CONS ---
History of Present Illness - Reason for Consult Consult date: 12/03/17 Dysphagia - History of Present Illness The patient is a 77-year-old female who was admitted to the hospital because of mental changes possibly related to metabolic encephalopathy. We are asked to see her regarding dysphagia. The patient has history of coronary atherosclerotic heart disease and prior coronary artery bypass graft surgery, atrial fibrillation, congestive heart failure chronic kidney disease and thyroid problems. There is no history of abdominal pains or any nausea or vomiting. No pain on swallowing, no hematemesis, melena or hematochezia. No unintentional weight loss. Review of Systems Constitutional: No fever or chills. No unintentional weight loss Neurologic: No headaches, double vision or sensory or motor changes Cardiopulmonary: No chest pains, shortness of breath or palpitations, history of coronary atherosclerotic heart disease, atrial fibrillation and congestive heart failure Genitourinary: No hematuria, dysuria or frequency Musculoskeletal: No joint swelling or pain Endocrine: History of diabetes and thyroid disease Gastrointestinal: See present illness above Skin: Infection Rt LE Hematologic: No anemia, bleeding or easy bruising Psychiatric: No anxiety or depression Past Medical History Past Medical History: Atrial Fibrillation, Coronary Artery Disease (CAD), Chest Pain / Angina, Heart Failure, Diabetes Mellitus, Eye Disorder, GERD/Reflux, Hyperlipidemia, Hypertension, Myocardial Infarction (NC), Osteoarthritis (OA), Pulmonary Embolus (PE), Thyroid Disorder, Vascular Disorder Additional Past Medical History / Comment(s): Ischemic cardiomyopathy, Vtach with hypomagnesemia, O2 at 2L/NC at HS, 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 Last Myocardial Infarction Date:: 2016 History of Any Multi-Drug Resistant Organisms: MRSA, Other MDRO Year Discovered:: 04/19/11-MRSA MDRO Source:: MDRO-Right Leg; MRSA-Unknown Past Surgical History: Breast Surgery, Cholecystectomy, Coronary Bypass/CABG, Heart Catheterization, Heart Catheterization With Stent, Pacemaker, Tonsillectomy, Tubal Ligation Additional Past Surgical History / Comment(s): AICD/pacer, 3 vessel CABG 1993, 05/2017 cardiac cath with unsuccessful angioplasty diagonal branch, L leg stent done in [facility], bilateral breast reductions, L breast benign bx, R leg varicose vein stripping, bilateral lower leg debridements, PICC line now out , colonoscopy, bilateral carpal tunnel releases, laser surgery bilaterally-pt unsure for what reason. Past Anesthesia/Blood Transfusion Reactions: No Reported Reaction Additional Past Anesthesia/Blood Transfusion Reaction / Comm: allergic to propofol Date of Last Stent Placement:: 1993 Type of Cardiac Device: Permanent Pacemaker Device Placement Date:: 2011 upgraded per pt Smoking Status: Never smoker - Past Family History Mother Family Medical History: CVA/TIA Additional Family Medical History / Comment(s): at age 43 of a stroke Father Family Medical History: Diabetes Mellitus Additional Family Medical History / Comment(s): age 81 Medications and Allergies Home Medications Medication Instructions Recorded Confirmed Type Allopurinol [Zyloprim] 300 mg PO DAILY@0800 04/18/17 11/30/17 History Aspirin [Adult Low Dose Aspirin EC] 81 mg PO DAILY@0800 04/18/17 11/30/17 History Isosorbide Mononitrate ER [Imdur] 60 mg PO DAILY@0800 04/18/17 11/30/17 History Levothyroxine Sodium 25 mcg PO DAILY@1800 04/18/17 11/30/17 History Metoprolol Tartrate [Lopressor] 50 mg PO BID 04/18/17 11/30/17 History Nitroglycerin Sl Tabs [Nitrostat] 0.4 mg SUBLINGUAL Q5M PRN 04/18/17 11/30/17 History Cholecalciferol [Vitamin D3] 1,000 unit PO DAILY@1700 08/11/17 11/30/17 History Ferrous Sulfate [Feosol] 325 mg PO MOWEFR@1700 08/11/17 11/30/17 History Meclizine [Antivert] 25 mg PO Q8H PRN 08/11/17 11/30/17 History Sacubitril/Valsartan [Entresto 24 1 tab PO BID 08/11/17 11/30/17 History mg-26 mg Tablet] Spironolactone [Aldactone] 25 mg PO BID 08/11/17 11/30/17 History traZODone HCL 50 mg PO HS@199908/11/17 11/30/17 History Docusate [Colace] 100 mg PO BID@0800,1700 09/18/17 11/30/17 History Insulin NPL/Insulin Lispro 30 unit SQ DAILY@0800 09/18/17 11/30/17 History [humaLOG MIX 75-25 VIAL] Omeprazole [PriLOSEC] 20 mg PO HS 09/18/17 11/30/17 History Polyethylene Glycol 3350 [Miralax] 17 gm PO DAILY@1600 09/18/17 11/30/17 History Pregabalin [Lyrica] 75 mg PO HS@199909/18/17 11/30/17 History Hydrocodone/Acetaminophen [[place] 1 tab PO Q6H PRN #40 tablet 09/26/17 11/30/17 Rx 10-325] Furosemide [Lasix] 40 mg PO BID 11/30/17 11/30/17 History INSULIN LISPRO (HumaLOG) [HumaLOG] See Protocol SQ ACHS 11/30/17 11/30/17 History Insulin NPL/Insulin Lispro 10 unit SQ HS@199911/30/17 11/30/17 History [humaLOG MIX 75-25 VIAL] Allergies Allergy/AdvReac Type Severity Reaction Status Date / Time Penicillins Allergy Rash/Hives Verified 11/30/17 23:17 propofol Allergy Unknown Verified 11/30/17 23:17 sulfamethoxazole AdvReac Abdominal Verified 11/30/17 23:17 [From Bactrim] Pain trimethoprim [From Bactrim] AdvReac Abdominal Verified 11/30/17 23:17 Pain Physical Exam Vitals: Vital Signs Temp Pulse Resp BP BP Pulse Ox 12/03/17 07:00 95.2 F L 55 L 15 92/68 100 12/02/17 23:00 98.0 F 60 16 115/55 98 12/02/17 16:01 101/57 12/02/17 15:00 96.7 F L 61 18 84/48 73/41 94 L Intake and Output 12/02/17 12/03/17 12/03/17 22:59 06:59 14:59 Other: Voiding Method Bedside Commode Bedside Commode Bedside Commode Incontinent Diaper Diaper Incontinent Incontinent Weight 73 kg General: Appears stated age, very pleasant in no acute distress Head and neck: Normocephalic and atraumatic, conjunctivae pink and sclerae not icteric, mucous membranes moist and pink. No masses in the neck or tracheal shifts Lungs: Clear to auscultation with no dullness to percussion Heart: Irregular, no abnormal sounds, murmurs, gallops or friction rubs Abdomen: Soft, no masses or organomegalies. No tenderness or guarding. Bowel sounds present Extremities: No clubbing, cyanosis or edema. Chronic wound Rt lower extremity Neurologic: Alert. Cranial nerves grossly intact. No gross sensory or motor abnormalities Results CBC & Chem 7: 12/04/17 08:18 12/04/17 08:18 Labs: Abnormal Lab Results - Last 24 Hours (Table) 12/02/17 12/02/17 12/03/17 Range/Units 16:48 20:47 07:35 WBC (3.8-10.6) k/uL RBC (3.80-5.40) m/uL Hgb (11.4-16.0) gm/dL MCHC (31.0-37.0) g/dL RDW (11.5-15.5) % Plt Count (150-450) k/uL Neutrophils # (1.3-7.7) k/uL Lymphocytes # (1.0-4.8) k/uL Sodium (137-145) mmol/L BUN (7-17) mg/dL Creatinine (0.52-1.04) mg/dL Glucose (74-99) mg/dL POC Glucose (mg/dL) 328 H 321 H 160 H (75-99) mg/dL Magnesium (1.6-2.3) mg/dL Alkaline Phosphatase (38-126) U/L Total Protein (6.3-8.2) g/dL Albumin (3.5-5.0) g/dL 12/03/17 12/03/17 12/03/17 Range/Units 08:11 08:11 12:07 WBC 12.2 H (3.8-10.6) k/uL RBC 3.56 L (3.80-5.40) m/uL Hgb 10.8 L (11.4-16.0) gm/dL MCHC 30.9 L (31.0-37.0) g/dL RDW 15.8 H (11.5-15.5) % Plt Count 124 L (150-450) k/uL Neutrophils # 10.7 H (1.3-7.7) k/uL Lymphocytes # 0.6 L (1.0-4.8) k/uL Sodium 136 L (137-145) mmol/L BUN 81 H* (7-17) mg/dL Creatinine 1.81 H (0.52-1.04) mg/dL Glucose 117 H (74-99) mg/dL POC Glucose (mg/dL) 74 L (75-99) mg/dL Magnesium 2.4 H (1.6-2.3) mg/dL Alkaline Phosphatase 190 H (38-126) U/L Total Protein 6.1 L (6.3-8.2) g/dL Albumin 3.4 L (3.5-5.0) g/dL Microbiology - Last 24 Hours (Table) 11/30/17 23:00 Blood Culture Gram Stain - Final Blood Blood Culture - Final Staphylococcus epidermidis 12/02/17 01:00 Blood Culture - Preliminary Blood No Growth after 24 hours Assessment and Plan Assessment: Dysphagia, not clear in her history if her dysphagia is only esophageal or if there is a pre-esophageal component. Plan: In light of her overall condition and cardiac status, will initiate her workup with the barium swallow and consider an upper endoscopy based on those findings. I will discuss with you and follow with you with interest.
[2017-12-05] MEDS: HYDROcodone/APAP 7.5-325MG 1 EACH TAB PO PRN (03:04)
--- NOTE | 2017-12-05 07:06 | PN ---
PROGRESS NOTE DATE OF SERVICE: 12/04/2017 REASON FOR FOLLOWUP: 1. Fever. 2. Right leg wound. INTERVAL HISTORY: The patient is afebrile. She seems to be breathing comfortably on room air. Denies significant chest pain. Occasional cough. No abdominal pain. No diarrhea. PHYSICAL EXAMINATION: On examination, blood pressure 99/61 with a pulse of 60, temperature 96.7. She is 96% on room air. General description is an elderly female lying in bed in no distress. RESPIRATORY SYSTEM: Unlabored breathing, decreased breath sounds at the bases, no wheeze. HEART: S1, S2. Regular rate and rhythm. ABDOMEN: Soft, no tenderness. Right leg did show overall improvement with no slough tissue, no surrounding erythema. LABS: Hemoglobin is 10.7, white count 9.9, BUN of 82, creatinine 1.77. Culture repeat has been negative. DIAGNOSTIC IMPRESSION AND PLAN: 1. Patient admitted to the hospital with low-grade fever, some mental status changes with question of early pneumonia as well as clinical focus of infection. Urine has been negative. CT abdomen pelvis was negative as well. With the fever responded to Rocephin, transition to continue a short course of oral Ceftin on discharge. 2. Patient's positive blood culture Staphylococcus epidermidis likely skin contamination, repeat blood culture negative. Currently off the vancomycin. 3. Patient right lower extremity venous stasis ulcer with no evidence of cellulitis. Local wound care to continue with Santyl followed by moist dressing. Daughter was present at bedside. Her questions and concerns were answered. MMODL / IJN: [id number] /
[2017-12-05 07:47] LABS: Glucose,Whole Blood 104 mg/dL (75-99)
[2017-12-05] MEDS: INSULIN ASPART 100 UNIT/ML 1 ML 10 ML VIAL SQ SCH ×4 (07:59→20:07)
[2017-12-05] MEDS: HEPARIN SODIUM,PORCINE 5,000 UNIT/ML 1 ML VIAL SQ SCH ×3 (08:46→20:10)
[2017-12-05] MEDS: MIDODRINE 5 MG TAB PO SCH ×2 (08:47→17:24)
[2017-12-05] MEDS: METOPROLOL TARTRATE 25 MG TAB PO SCH ×2 (08:47→20:05)
[2017-12-05] MEDS: FUROSEMIDE 40 MG TAB PO SCH (08:47)
[2017-12-05] MEDS: DOCUSATE 100 MG CAP PO SCH ×2 (08:48→17:24)
[2017-12-05] MEDS: ALLOPURINOL 300 MG TAB PO SCH (08:48)
[2017-12-05] MEDS: ASPIRIN 81 MG PO SCH (08:48)
[2017-12-05] MEDS: INSULN ASP PRT/INSULIN ASPART 100 UNIT/ML 10 ML VIAL SQ SCH ×2 (08:53→20:06)
[2017-12-05 09:19] LABS: Basophils % (A) 0 %; Eosinophils # (A) 0.2 k/uL (0-0.7); Eosinophils % (A) 3 %; HCT 33.2 % (34.0-46.0); HGB 10.1 gm/dL (11.4-16.0); Hypochromasia Moderate; Lymphocytes # (A) 0.8 k/uL (1.0-4.8); Lymphocytes % (A) 11 %; MCH 29.7 pg (25.0-35.0); MCHC 30.4 g/dL (31.0-37.0); MCV 97.7 fL (80.0-100.0); Macrocytosis Slight; Mean Platelet Volume 8.6; Monocytes # (A) 0.5 k/uL (0-1.0); Monocytes % (A) 7 %; Neutrophils # (A) 5.3 k/uL (1.3-7.7); Neutrophils % (A) 76 %; Platelet Count 122 k/uL (150-450); RDW 15.8 % (11.5-15.5); WBC 6.9 k/uL (3.8-10.6)
[2017-12-05 09:39] LABS: Calcium 9.1 mg/dL (8.4-10.2); Potassium 5.2 mmol/L (3.5-5.1); Total Bilirubin 0.5 mg/dL (0.2-1.3); Total Protein 5.5 g/dL (6.3-8.2)
[2017-12-05] MEDS: cefTRIAXone IN SWFI 1,000 MG/10 ML SYRINGE IVP SCH (09:44)
[2017-12-05 11:57] LABS: Glucose,Whole Blood 117 mg/dL (75-99)
[2017-12-05] MEDS ORDERED: SODIUM POLYSTYRENE SULFONATE 15 GM/60 ML BOTTLE PO STA (13:13)
--- NOTE | 2017-12-05 13:19 | P.PN ---
Subjective Progress Note Date: 12/05/17 This is a 77 -year-old female with a known past medical history of atrial fibrillation, congestive heart failure, diabetes mellitus, hypertension, myocardial infarction, CABG with cardiac stents, chronic kidney disease and hypothyroidism. She also has a chronic right leg wound in which she follows with Dr. Mejias in the wound care clinic. Patient is currently been at [facility] for rehabilitation. Her daughter patient has been very confused having hallucinations and not been herself. On admission her glucose was 447, she had a temp of 100.8 white count elevated at 15. Potassium elevated at 6. BNP elevated at 13,800. Urinalysis was negative influenza screen negative. Chest x-ray showed poor inspiration no evidence of an infection. EKG first-degree AV block with PACs. Patient received Kayexalate in the emergency room. Awaiting repeat potassium level. Patient reports having diarrhea off and on for the last 3 weeks. But it usually just one episode for that day and then a few days with a regular bowel movements. She denies any nausea or vomiting. Denies any chest pain. Occasional shortness of breath. She was started on IV Lasix for possible CHF exacerbation. Her insulin has been restarted. Patient reports taking her insulin at [address] [place] [address]. She denies any burning with urination. Denies any sore throat earache runny nose or congestion. Infectious disease, psychiatry and cardiology of been consulted. Infectious disease has placed patient on Rocephin and Flagyl for possible abdominal source. 12/02/2017 patient sleeping comfortably this morning when evaluated. She is arousable and able to answer questions. Poor appetite this morning. Reports that her legs are hurting. Her insulin was held this morning for blood sugar 101. Patient denies any chest pain or shortness of breath. Denies any nausea or vomiting. Did have a bowel movement after the Kayexalate. Potassium is coming down from 6-4.6. Denies any burning with urination. White count has come up from 13.1-14.7. Computed tomography scan of the brain with cerebral atrophy with central cerebral atrophy and secondary mild ventriculomegaly. Mild changes of chronic small vessel ischemic changes. No acute intracranial abnormality. Computed tomography scan of the abdomen showing cardiomegaly. Right pleural effusion. Mild atelectasis at the right lung base. Pleural fluid increased compared to old exam. There is improved aeration of lung bases compared to old exam. There is no ascites fluid in the abdomen.. Could correlate to chronic congestive heart failure. Calcified urine fibroids. Stable small right he will hernia that contains fat. Stable varicose veins in the suprapubic region that raises the possibility of pelvic venous obstruction. Patient is on IV Lasix. Still reporting some shortness of breath. Denies any chest pain. Denies any nausea or vomiting. 12/05/2017 patient is sitting up in bedside chair comfortably. Reports improvement in her breathing. She is still having difficulty with swallowing. On antibiotics for possible pneumonia. Denies cough. Kidney functions are showing improvement over the weekend. Creatinine is down to 1.56. Patient denies any chest pain nausea or vomiting. Reports having bowel movements. Denies any burning with urination. Objective - Vital Signs Vital signs: Vital Signs Temp 96.2 F L 12/05/17 07:00 Pulse 62 12/05/17 07:00 Resp 16 12/05/17 08:00 BP 110/54 12/05/17 07:00 Pulse Ox 99 12/05/17 07:00 Intake & Output 12/04/17 12/05/17 12/05/17 18:59 06:59 18:59 Intake Total 240 Balance 240 Weight 69 kg Intake: Oral 240 Other: Voiding Method Bedside Commode Bedside Commode Diaper Diaper Incontinent Incontinent # Voids 2 2 # Bowel Movements 0 - Exam Head normocephalic Neck supple Lungs crackles in the right lower base Heart regular rate and rhythm S1-S2, no rub or gallop Abdomen is soft nontender nondistended positive bowel sounds no hepatosplenomegaly Extremities no edema. Chronic leg wound on the right leg no evidence of acute infection Neuro alert and orientated to 3 - Labs CBC & Chem 7: 12/05/17 08:50 12/05/17 08:50 Labs: Abnormal Lab Results - Last 24 Hours (Table) 12/04/17 12/05/17 12/05/17 Range/Units 16:55 07:05 08:50 RBC 3.40 L (3.80-5.40) m/uL Hgb 10.1 L (11.4-16.0) gm/dL Hct 33.2 L (34.0-46.0) % MCHC 30.4 L (31.0-37.0) g/dL RDW 15.8 H (11.5-15.5) % Plt Count 122 L (150-450) k/uL Lymphocytes # 0.8 L (1.0-4.8) k/uL Potassium (3.5-5.1) mmol/L BUN (7-17) mg/dL Creatinine (0.52-1.04) mg/dL Glucose (74-99) mg/dL POC Glucose (mg/dL) 74 L 104 H (75-99) mg/dL Alkaline Phosphatase (38-126) U/L Total Protein (6.3-8.2) g/dL Albumin (3.5-5.0) g/dL 12/05/17 12/05/17 Range/Units 08:50 11:52 RBC (3.80-5.40) m/uL Hgb (11.4-16.0) gm/dL Hct (34.0-46.0) % MCHC (31.0-37.0) g/dL RDW (11.5-15.5) % Plt Count (150-450) k/uL Lymphocytes # (1.0-4.8) k/uL Potassium 5.2 H (3.5-5.1) mmol/L BUN 72 H (7-17) mg/dL Creatinine 1.56 H (0.52-1.04) mg/dL Glucose 100 H (74-99) mg/dL POC Glucose (mg/dL) 117 H (75-99) mg/dL Alkaline Phosphatase 203 H (38-126) U/L Total Protein 5.5 L (6.3-8.2) g/dL Albumin 3.0 L (3.5-5.0) g/dL Microbiology - Last 24 Hours (Table) 12/02/17 01:00 Blood Culture - Preliminary Blood No Growth after 72 hours Assessment and Plan Assessment: 1. Altered mental status changes: Possibly a metabolic encephalopathy secondary to infection, congestive heart failure or hyperglycemia. Computed tomography scan of the brain shows no acute intracranial abnormality. 2. Bacteremia with blood culture growing staph epidermidis. This is a contamination. Vanco mycin discontinued. 3. Acute on chronic systolic congestive heart failure with an EF of 20-25% that was noted on echo in September 2017. Patient had elevated BNP on admission. IV Lasix discontinued switched over to oral Lasix 4. Hallucinations and delirium evaluated by psychiatry. Medications adjusted. Hallucinations seem to be improving 5. Hyperkalemia: Aldactone and Entresto discontinued. Improved with Kayexalate. Potassium is up to 5.2 again will give a dose of Kayexalate 6. Insulin-dependent diabetes mellitus with elevated blood sugar of 447 on admission. continue Home insulin. Add sliding scale coverage. No ketones in urine. Blood sugars stable 7. History of ischemic cardiomyopathy status post AICD 8. Acute on Chronic kidney disease, stage III. Acute kidney injury secondary to hypotension. Has been seen by nephrology. Kidney functions are improving. Lasix dose was decreased to 40 mg by mouth daily 9. History of coronary artery disease with prior bypass surgery and cardiac Stents 10. Paroxysmal atrial fibrillation: Not on anticoagulation due to frequent falls 11. Chronic right leg venous stasis ulcer: Followed at wound care center by Dr. Mejias. No evidence of cellulitis. Continue local wound care. Infectious disease following 12. Dysphagia seen by GI service. We'll await their recommendations regarding barium swallow. 13. Possibility of a pelvic venous obstruction noted on CAT scan of the abdomen. Patient evaluated by Dr. Vang. And she will follow-up with him in the outpatient setting for further workup GI prophylaxis Protonix and DVT prophylaxis subcu heparin I performed an examination of the patient and discussed their management with the physician Medical Affairs Director. I have reviewed the Physician Medical Affairs Director's notes and agree with the documented findings and plan of care
--- NOTE | 2017-12-05 14:10 | XR ---
EXAMINATION TYPE: XR chest 2V DATE OF EXAM: 12/05/2017 COMPARISON: 11/30/2018 HISTORY: Clinical concern for pneumonia. Shortness of breath. TECHNIQUE: Frontal and lateral views of the chest are obtained. FINDINGS: Retrocardiac airspace is obscured on the frontal view by the left-sided cardiac device. Hea rt is enlarged with post CABG changes of the chest. There is a trace left pleural effusion on the lat eral image with no focal airspace disease identified. No sizable pneumothorax. Right lung is clear. M ild multilevel degenerative changes of the thoracic spine and acromio clavicular joints are noted. IMPRESSION: Trace left pleural effusion with no focal opacity to suggest pneumonia.
[2017-12-05] MEDS: COLLAGENASE 250 UNIT/GM OINTMENT 30 GM TUBE TOPICAL SCH (16:54)
[2017-12-05] MEDS: FERROUS SULFATE 325 MG TAB PO SCH (17:23)
[2017-12-05] MEDS: CHOLECALCIFEROL 1,000 UNIT TAB PO SCH (17:23)
[2017-12-05] MEDS: POLYETHYLENE GLYCOL 3350 17 GM POWD.PACK PO SCH (17:23)
[2017-12-05] MEDS: LEVOTHYROXINE 25 MCG TAB PO SCH (17:24)
[2017-12-05 17:26] LABS: Glucose,Whole Blood 140 mg/dL (75-99)
[2017-12-05 20:00] LABS: Glucose,Whole Blood 146 mg/dL (75-99)
[2017-12-05] MEDS: PREGABALIN 50 MG CAP PO SCH (20:06)
[2017-12-05] MEDS: PANTOPRAZOLE 40 MG TABLET PO SCH (20:06)
[2017-12-05] MEDS: traZODone HCL 50 MG TAB PO SCH (20:06)
[2017-12-05] MEDS: SODIUM CHLORIDE 0.9% 1,000 ML IV SCH (23:21)
--- NOTE | 2017-12-05 23:30 | PN ---
PROGRESS NOTE DATE OF SERVICE: 12/05/2017. REASON FOR FOLLOWUP: 1. Fever, questionable pneumonia. 2. Right leg wound. INTERVAL HISTORY: The patient is afebrile. She has been breathing comfortably. Minimal cough. No chest pain, no abdominal pain. No diarrhea. No pain in her right leg area. EXAMINATION: Blood pressure 106/60 with a pulse of 64, temperature of 97. She is 95% on room air. General description is an elderly female lying in bed in no distress. RESPIRATORY SYSTEM: Unlabored breathing with decreased breath sounds in the bases. No wheeze. HEART: S1, S2. Regular rate and rhythm. ABDOMEN: Soft, no tenderness. LABS: Hemoglobin is 10.1, white count 6.8 with a BUN of 72, creatinine 1.56. So far culture repeat has been negative. DIAGNOSTIC IMPRESSION AND PLAN: 1. Patient admitted to the hospital with mental status changes. Did have a low-grade fever of 100.7. Did have extensive workup with question of early pneumonia not entirely excluded, although no other source of infection resolution of fever with Rocephin. Continue for short course. 2. Patient with right leg wound, venous stasis ulcer, no cellulitis. Local wound care. Continue with Tanna. Daughter present at bedside. Her questions were answered. MMODL / IJN: [id number] /
--- NOTE | 2017-12-06 00:40 | PN ---
PROGRESS NOTE Patient was seen this morning. She was having a sponge bath. Patient was otherwise comfortable. She denied any significant complaints. This morning blood pressure was 110/54. She was afebrile. EXAMINATION OF THE HEART: Examination of lower extremities shows chronic skin changes with chronic edema which is not worse. ABDOMEN: Soft, obese, non-tender. [employer] exam is grossly intact. Patient is moving all 4 extremities. Labs show serum creatinine down to 1.56. Serum potassium was 5.2. BUN 72, sodium 138. Hemoglobin was 10.1 g/dL. ASSESSMENT: 1. Acute kidney injury, acute tubular necrosis, currently nonoliguric, secondary to hypotension and hypoperfusion. Renal function has improved. Continue with current dose of Lasix. 2. Cardiomyopathy, ejection fraction 20% to 25%. 3. Congestive heart failure, acute on top of chronic, mainly systolic, currently improved since admission. 4. Hyperkalemia on initial admission, currently improved. However, serum potassium is high again at 5.2. Will continue with the Lasix and patient will be maintained on low-potassium diet as well. Try to avoid constipation, which can worsen the hyperkalemia. 5. Hypotension, maintained on midodrine from prior to admission. PLAN: Maintain low-potassium diet. Continue with current dose of Lasix. Repeat labs in a.m. Control blood sugars and avoid constipation. MMODL / IJN: [id number] /
[2017-12-06 07:15] LABS: Glucose,Whole Blood 85 mg/dL (75-99)
[2017-12-06] MEDS: INSULIN ASPART 100 UNIT/ML 1 ML 10 ML VIAL SQ SCH ×4 (08:22→22:20)
[2017-12-06 08:28] LABS: Basophils # (A) 0.1 k/uL (0-0.2); Basophils % (A) 1 %; Eosinophils # (A) 0.2 k/uL (0-0.7); Eosinophils % (A) 2 %; HCT 35.3 % (34.0-46.0); HGB 11.2 gm/dL (11.4-16.0); Hypochromasia Slight; Lymphocytes # (A) 0.6 k/uL (1.0-4.8); Lymphocytes % (A) 7 %; MCH 30.5 pg (25.0-35.0); MCHC 31.7 g/dL (31.0-37.0); MCV 96.4 fL (80.0-100.0); Mean Platelet Volume 7.5; Monocytes # (A) 0.4 k/uL (0-1.0); Monocytes % (A) 4 %; Neutrophils % (A) 85 %; Platelet Count 131 k/uL (150-450); RBC 3.67 m/uL (3.80-5.40); RDW 15.6 % (11.5-15.5); WBC 9.4 k/uL (3.8-10.6)
[2017-12-06 08:43] LABS: Albumin 3.3 g/dL (3.5-5.0); Calcium 9.7 mg/dL (8.4-10.2); Potassium 4.4 mmol/L (3.5-5.1); Total Bilirubin 0.7 mg/dL (0.2-1.3)
[2017-12-06] MEDS: MIDODRINE 5 MG TAB PO SCH ×2 (09:20→17:26)
[2017-12-06] MEDS: METOPROLOL TARTRATE 25 MG TAB PO SCH ×2 (09:20→21:48)
[2017-12-06] MEDS: ASPIRIN 81 MG PO SCH (09:20)
[2017-12-06] MEDS: ALLOPURINOL 300 MG TAB PO SCH (09:20)
[2017-12-06] MEDS: DOCUSATE 100 MG CAP PO SCH ×2 (09:21→17:26)
[2017-12-06] MEDS: cefTRIAXone IN SWFI 1,000 MG/10 ML SYRINGE IVP SCH (09:22)
[2017-12-06] MEDS: COLLAGENASE 250 UNIT/GM OINTMENT 30 GM TUBE TOPICAL SCH (09:23)
[2017-12-06] MEDS: HEPARIN SODIUM,PORCINE 5,000 UNIT/ML 1 ML VIAL SQ SCH ×2 (09:24→21:50)
[2017-12-06] MEDS: FUROSEMIDE 40 MG TAB PO SCH ×2 (09:24→21:47)
[2017-12-06 09:47] LABS: Glucose,Whole Blood 97 mg/dL (75-99)
--- NOTE | 2017-12-06 10:12 | P.PN ---
Subjective Progress Note Date: 12/06/17 Principal diagnosis: Dysphagia Admitted with altered mental status with underlying CHF acute kidney injury. UGI esophagram scheduled today for evaluation of dysphagia. Nursing reports no episodes of nausea vomiting hematemesis hematochezia or melena. Nurse reports patient is taking oral medications without choking or coughing. Objective - Vital Signs Vital signs: Vital Signs Temp 97.0 F L 12/06/17 06:15 Pulse 115 H 12/06/17 06:15 Resp 16 12/06/17 06:15 BP 139/72 12/06/17 06:15 Pulse Ox 97 12/06/17 06:15 Intake & Output 12/05/17 12/06/17 12/06/17 18:59 06:59 18:59 Intake Total 600 Balance 600 Intake: Oral 600 Other: Voiding Method Bedside Commode Diaper Incontinent # Voids 1 2 # Bowel Movements 0 1 - Exam General appearance: The patient arousable confused but follows simple commands. HET: Head is normocephalic and atraumatic. Pupils are equal and reactive. Oropharynx is clear with approximate 0.5 cm round raised non necrotic nonbleeding soft tissue mass in the upper palate. Neck: Supple without lymphadenopathy. Trachea midline. Heart: S1 S2. Regular rate and rhythm. Lungs: No crackles or wheezes are heard. Abdomen: Soft, nontender, nondistended with bowel sounds. No peritoneal signs. No palpable organomegaly or masses. Extremities: Normal skin color and turgor. No cyanosis, rash, ulceration, clubbing, or edema. Radial and pedal pulses are 2/4 bilaterally. Neurological: No focal deficits. Strength and sensation are grossly intact. - Labs CBC & Chem 7: 12/06/17 07:50 12/06/17 07:50 Labs: Abnormal Lab Results - Last 24 Hours (Table) 12/05/17 12/05/17 12/05/17 Range/Units 11:52 17:00 19:57 RBC (3.80-5.40) m/uL Hgb (11.4-16.0) gm/dL RDW (11.5-15.5) % Plt Count (150-450) k/uL Neutrophils # (1.3-7.7) k/uL Lymphocytes # (1.0-4.8) k/uL Carbon Dioxide (22-30) mmol/L BUN (7-17) mg/dL Creatinine (0.52-1.04) mg/dL POC Glucose (mg/dL) 117 H 140 H 146 H (75-99) mg/dL Alkaline Phosphatase (38-126) U/L Total Protein (6.3-8.2) g/dL Albumin (3.5-5.0) g/dL 12/06/17 12/06/17 Range/Units 07:50 07:50 RBC 3.67 L (3.80-5.40) m/uL Hgb 11.2 L (11.4-16.0) gm/dL RDW 15.6 H (11.5-15.5) % Plt Count 131 L (150-450) k/uL Neutrophils # 8.0 H (1.3-7.7) k/uL Lymphocytes # 0.6 L (1.0-4.8) k/uL Carbon Dioxide 21 L (22-30) mmol/L BUN 58 H (7-17) mg/dL Creatinine 1.15 H (0.52-1.04) mg/dL POC Glucose (mg/dL) (75-99) mg/dL Alkaline Phosphatase 238 H (38-126) U/L Total Protein 6.0 L (6.3-8.2) g/dL Albumin 3.3 L (3.5-5.0) g/dL Microbiology - Last 24 Hours (Table) 12/02/17 01:00 Blood Culture - Preliminary Blood No Growth after 96 hours Assessment and Plan (1) Dysphagia Narrative/Plan: 77-year-old female admitted with acute kidney injury acute on chronic congestive heart failure altered mental status low-grade fever with reports of dysphagia. Possible pre-esophageal in origin. Current Visit: Yes Status: Acute Code(s): R13.10 - DYSPHAGIA, UNSPECIFIED SNOMED Code(s): 46154286 (2) Mass of palate Current Visit: Yes Status: Acute Code(s): R22.0 - LOCALIZED SWELLING, MASS AND LUMP, HEAD SNOMED Code(s): 571392409 (3) Altered mental state Current Visit: Yes Status: Acute Code(s): R41.82 - ALTERED MENTAL STATUS, UNSPECIFIED SNOMED Code(s): 414025343 Plan: 1. Await esophagram results. 2. Recommend ENT for upper palate soft tissue mass. 3. We'll continue to follow with you. Inpatient upper endoscopy contingent on clinical course. Assessment and plan a care discussed with Dr. Godinez
[2017-12-06] MEDS: INSULN ASP PRT/INSULIN ASPART 100 UNIT/ML 10 ML VIAL SQ SCH ×2 (10:19→22:20)
--- NOTE | 2017-12-06 12:12 | FL ---
EXAMINATION TYPE: FL UGI air w esophagus DATE OF EXAM: 12/06/2017 CLINICAL HISTORY: Dysphasia. Feels food getting stuck. Some heartburn-like symptoms. TECHNIQUE: A single contrast esophagram is performed utilizing barium. A total of 28 seconds of flu oroscopic time was utilized during procedure. 39 spot images were saved. COMPARISON: None FINDINGS: Double contrast study cannot be performed due to patient's underlying medical condition wit h poor mobility and confusion. Only single semiupright supine imaging was performed. The esophagus sh ows dysmotility with abnormal secondary and tertiary contractions. There is emptying into stomach. No obvious intraluminal mass is identified. No evidence of fixed hiatal hernia or stricture noted. No significant gastroesophageal reflux was seen during real time performance of this study. Overlying de fibrillator/pacemaker wires and sternal wires are noted. IMPRESSION: Suboptimal study without obvious intraluminal mass or stricture. Underlying esophageal d ysmotility is present.
--- NOTE | 2017-12-06 12:27 | P.PN ---
Subjective Progress Note Date: 12/06/17 This is a 77 -year-old female with a known past medical history of atrial fibrillation, congestive heart failure, diabetes mellitus, hypertension, myocardial infarction, CABG with cardiac stents, chronic kidney disease and hypothyroidism. She also has a chronic right leg wound in which she follows with Dr. Mejias in the wound care clinic. Patient is currently been at [facility] for rehabilitation. Her daughter patient has been very confused having hallucinations and not been herself. On admission her glucose was 447, she had a temp of 100.8 white count elevated at 15. Potassium elevated at 6. BNP elevated at 13,800. Urinalysis was negative influenza screen negative. Chest x-ray showed poor inspiration no evidence of an infection. EKG first-degree AV block with PACs. Patient received Kayexalate in the emergency room. Awaiting repeat potassium level. Patient reports having diarrhea off and on for the last 3 weeks. But it usually just one episode for that day and then a few days with a regular bowel movements. She denies any nausea or vomiting. Denies any chest pain. Occasional shortness of breath. She was started on IV Lasix for possible CHF exacerbation. Her insulin has been restarted. Patient reports taking her insulin at [address] [place]. She denies any burning with urination. Denies any sore throat earache runny nose or congestion. Infectious disease, psychiatry and cardiology of been consulted. Infectious disease has placed patient on Rocephin and Flagyl for possible abdominal source. 12/02/2017 patient sleeping comfortably this morning when evaluated. She is arousable and able to answer questions. Poor appetite this morning. Reports that her legs are hurting. Her insulin was held this morning for blood sugar 101. Patient denies any chest pain or shortness of breath. Denies any nausea or vomiting. Did have a bowel movement after the Kayexalate. Potassium is coming down from 6-4.6. Denies any burning with urination. White count has come up from 13.1-14.7. Computed tomography scan of the brain with cerebral atrophy with central cerebral atrophy and secondary mild ventriculomegaly. Mild changes of chronic small vessel ischemic changes. No acute intracranial abnormality. Computed tomography scan of the abdomen showing cardiomegaly. Right pleural effusion. Mild atelectasis at the right lung base. Pleural fluid increased compared to old exam. There is improved aeration of lung bases compared to old exam. There is no ascites fluid in the abdomen.. Could correlate to chronic congestive heart failure. Calcified urine fibroids. Stable small right he will hernia that contains fat. Stable varicose veins in the suprapubic region that raises the possibility of pelvic venous obstruction. Patient is on IV Lasix. Still reporting some shortness of breath. Denies any chest pain. Denies any nausea or vomiting. 12/05/2017 patient is sitting up in bedside chair comfortably. Reports improvement in her breathing. She is still having difficulty with swallowing. On antibiotics for possible pneumonia. Denies cough. Kidney functions are showing improvement over the weekend. Creatinine is down to 1.56. Patient denies any chest pain nausea or vomiting. Reports having bowel movements. Denies any burning with urination. 12/06/2017 patient sitting up in bedside chair. Underwent esophagram today showing no mass or stricture underlying esophageal dysmotility is present. Chest x-ray from yesterday shows no pneumonia. She is having regular bowel movements. Denies any chest pain or shortness of breath. Creatinine is improving down to 1.15 Objective - Vital Signs Vital signs: Vital Signs Temp 97.0 F L 12/06/17 06:15 Pulse 115 H 12/06/17 06:15 Resp 16 12/06/17 06:15 BP 139/72 12/06/17 06:15 Pulse Ox 97 12/06/17 06:15 Intake & Output 12/05/17 12/06/17 12/06/17 18:59 06:59 18:59 Intake Total 600 Balance 600 Intake: Oral 600 Other: Voiding Method Bedside Commode Diaper Incontinent # Voids 1 2 # Bowel Movements 0 1 - Exam Head normocephalic Neck supple Lungs crackles in the right lower base Heart regular rate and rhythm S1-S2, no rub or gallop Abdomen is soft nontender nondistended positive bowel sounds no hepatosplenomegaly Extremities no edema. Chronic leg wound on the right leg no evidence of acute infection Neuro alert and orientated to 3 - Labs CBC & Chem 7: 12/06/17 07:50 12/06/17 07:50 Labs: Abnormal Lab Results - Last 24 Hours (Table) 12/05/17 12/05/17 12/06/17 Range/Units 17:00 19:57 07:50 RBC 3.67 L (3.80-5.40) m/uL Hgb 11.2 L (11.4-16.0) gm/dL RDW 15.6 H (11.5-15.5) % Plt Count 131 L (150-450) k/uL Neutrophils # 8.0 H (1.3-7.7) k/uL Lymphocytes # 0.6 L (1.0-4.8) k/uL Carbon Dioxide (22-30) mmol/L BUN (7-17) mg/dL Creatinine (0.52-1.04) mg/dL POC Glucose (mg/dL) 140 H 146 H (75-99) mg/dL Alkaline Phosphatase (38-126) U/L Total Protein (6.3-8.2) g/dL Albumin (3.5-5.0) g/dL 12/06/17 Range/Units 07:50 RBC (3.80-5.40) m/uL Hgb (11.4-16.0) gm/dL RDW (11.5-15.5) % Plt Count (150-450) k/uL Neutrophils # (1.3-7.7) k/uL Lymphocytes # (1.0-4.8) k/uL Carbon Dioxide 21 L (22-30) mmol/L BUN 58 H (7-17) mg/dL Creatinine 1.15 H (0.52-1.04) mg/dL POC Glucose (mg/dL) (75-99) mg/dL Alkaline Phosphatase 238 H (38-126) U/L Total Protein 6.0 L (6.3-8.2) g/dL Albumin 3.3 L (3.5-5.0) g/dL Microbiology - Last 24 Hours (Table) 12/02/17 01:00 Blood Culture - Preliminary Blood No Growth after 96 hours Assessment and Plan Assessment: 1. Altered mental status changes: Possibly a metabolic encephalopathy secondary to infection, congestive heart failure or hyperglycemia. Computed tomography scan of the brain shows no acute intracranial abnormality. 2. Bacteremia with blood culture growing staph epidermidis. This is a contamination. Vanco mycin discontinued. 3. Acute on chronic systolic congestive heart failure with an EF of 20-25% that was noted on echo in September 2017. Patient had elevated BNP on admission. IV Lasix discontinued switched over to oral Lasix 4. Hallucinations and delirium evaluated by psychiatry. Medications adjusted. Hallucinations seem to be improving 5. Hyperkalemia: Aldactone and Entresto discontinued. Potassium level improved with Kayexalate 6. Insulin-dependent diabetes mellitus with elevated blood sugar of 447 on admission. continue Home insulin. Add sliding scale coverage. No ketones in urine. Blood sugars now stable 7. History of ischemic cardiomyopathy status post AICD 8. Acute on Chronic kidney disease, stage III. Acute kidney injury secondary to hypotension. Has been seen by nephrology. Kidney functions are improving. Lasix dose was decreased to 40 mg by mouth daily 9. History of coronary artery disease with prior bypass surgery and cardiac Stents 10. Paroxysmal atrial fibrillation: Not on anticoagulation due to frequent falls 11. Chronic right leg venous stasis ulcer: Followed at wound care center by Dr. Mejias. No evidence of cellulitis. Continue local wound care. Infectious disease following 12. Dysphagia seen by GI service. Patient underwent esophagram showing no stricture or mass. Did reveal an underlying esophageal dysmotility present. 13. Possibility of a pelvic venous obstruction noted on CAT scan of the abdomen. Patient evaluated by Dr. Vang. And she will follow-up with him in the outpatient setting for further workup GI prophylaxis Protonix and DVT prophylaxis subcu heparin I performed an examination of the patient and discussed their management with the physician Veterans Service Representative. I have reviewed the Physician Veterans Service Representative's notes and agree with the documented findings and plan of care
[2017-12-06 12:44] LABS: Glucose,Whole Blood 120 mg/dL (75-99)
[2017-12-06] MEDS: NYSTATIN 100,000 UNIT/ML SUSP 500,000 UNIT/5 ML CUP PO SCH ×3 (13:38→21:48)
[2017-12-06] MEDS: POLYETHYLENE GLYCOL 3350 17 GM POWD.PACK PO SCH (13:40)
[2017-12-06] MEDS: LEVOTHYROXINE 25 MCG TAB PO SCH (17:26)
[2017-12-06] MEDS: CHOLECALCIFEROL 1,000 UNIT TAB PO SCH (17:26)
[2017-12-06 17:54] LABS: Glucose,Whole Blood 178 mg/dL (75-99)
--- NOTE | 2017-12-06 18:51 | P.GSCN ---
History of Present Illness Consult date: 12/06/17 Reason for Consult: Mass of the hard palate Requesting physician: Goivanny Cesar History of present illness: This is a 77-year-old debilitated female who was noted to have a mass of the hard palate. The patient is asymptomatic regarding this mass which was noted on exam. She has no mouth pain facial pain, bleeding, difficulty chewing, etc. etc. Again the patient is asymptomatic. Review of Systems - Constitutional Reports anorexia - EENT Ears, nose, mouth and throat: Denies bleeding gums - Cardiovascular Denies claudication - Respiratory Denies cough with sputum - Gastrointestinal Reports loss of appetite - Genitourinary Genitourinary: Denies nocturia Menstruation: Reports as per HPI - Musculoskeletal Denies arm numbness/tingling - Integumentary Denies boils - Neurological Denies burning pain - Psychiatric Denies anxiety - Endocrine Denies deepening of the voice - Hematologic/Lymphatic Denies easy bleeding - Allergic/Immunologic Denies allergic rhinitis Past Medical History Past Medical History: Atrial Fibrillation, Coronary Artery Disease (CAD), Chest Pain / Angina, Heart Failure, Diabetes Mellitus, Eye Disorder, GERD/Reflux, Hyperlipidemia, Hypertension, Myocardial Infarction ([place]), Osteoarthritis (OA), Pulmonary Embolus (PE), Thyroid Disorder, Vascular Disorder Additional Past Medical History / Comment(s): Ischemic cardiomyopathy, Vtach with hypomagnesemia, O2 at 2L/NC at HS, 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 Last Myocardial Infarction Date:: 2016 History of Any Multi-Drug Resistant Organisms: MRSA, Other MDRO Year Discovered:: 04/19/11-MRSA MDRO Source:: MDRO-Right Leg; MRSA-Unknown Past Surgical History: Breast Surgery, Cholecystectomy, Coronary Bypass/CABG, Heart Catheterization, Heart Catheterization With Stent, Pacemaker, Tonsillectomy, Tubal Ligation Additional Past Surgical History / Comment(s): AICD/pacer, 3 vessel CABG 1993, 05/2017 cardiac cath with unsuccessful angioplasty diagonal branch, L leg stent done in [facility], bilateral breast reductions, L breast benign bx, R leg varicose vein stripping, bilateral lower leg debridements, PICC line now out , colonoscopy, bilateral carpal tunnel releases, laser surgery bilaterally-pt unsure for what reason. Past Anesthesia/Blood Transfusion Reactions: No Reported Reaction Additional Past Anesthesia/Blood Transfusion Reaction / Comm: allergic to propofol Date of Last Stent Placement:: 1993 Type of Cardiac Device: Permanent Pacemaker Device Placement Date:: 2011 upgraded per pt Smoking Status: Never smoker - Past Family History Mother Family Medical History: CVA/TIA Additional Family Medical History / Comment(s): at age 43 of a stroke Father Family Medical History: Diabetes Mellitus Additional Family Medical History / Comment(s): age 81 Medications and Allergies Home Medications Medication Instructions Recorded Confirmed Type Allopurinol [Zyloprim] 300 mg PO DAILY@0800 04/18/17 11/30/17 History Aspirin [Adult Low Dose Aspirin EC] 81 mg PO DAILY@0800 04/18/17 11/30/17 History Isosorbide Mononitrate ER [Imdur] 60 mg PO DAILY@0800 04/18/17 11/30/17 History Levothyroxine Sodium 25 mcg PO DAILY@1800 04/18/17 11/30/17 History Metoprolol Tartrate [Lopressor] 50 mg PO BID 04/18/17 11/30/17 History Nitroglycerin Sl Tabs [Nitrostat] 0.4 mg SUBLINGUAL Q5M PRN 04/18/17 11/30/17 History Cholecalciferol [Vitamin D3] 1,000 unit PO DAILY@1700 08/11/17 11/30/17 History Ferrous Sulfate [Feosol] 325 mg PO MOWEFR@1700 08/11/17 11/30/17 History Meclizine [Antivert] 25 mg PO Q8H PRN 08/11/17 11/30/17 History Sacubitril/Valsartan [Entresto 24 1 tab PO BID 08/11/17 11/30/17 History mg-26 mg Tablet] Spironolactone [Aldactone] 25 mg PO BID 08/11/17 11/30/17 History traZODone HCL 50 mg PO HS@2000 08/11/17 11/30/17 History Docusate [Colace] 100 mg PO BID@0800,1700 09/18/17 11/30/17 History Insulin NPL/Insulin Lispro 30 unit SQ DAILY@0800 09/18/17 11/30/17 History [humaLOG MIX 75-25 VIAL] Omeprazole [PriLOSEC] 20 mg PO HS 09/18/17 11/30/17 History Polyethylene Glycol 3350 [Miralax] 17 gm PO DAILY@1600 09/18/17 11/30/17 History Pregabalin [Lyrica] 75 mg PO HS@199909/18/17 11/30/17 History Hydrocodone/Acetaminophen [[place] 1 tab PO Q6H PRN #40 tablet 09/26/17 11/30/17 Rx 10-325] Furosemide [Lasix] 40 mg PO BID 11/30/17 11/30/17 History INSULIN LISPRO (HumaLOG) [HumaLOG] See Protocol SQ ACHS 11/30/17 11/30/17 History Insulin NPL/Insulin Lispro 10 unit SQ HS@199911/30/17 11/30/17 History [humaLOG MIX 75-25 VIAL] Allergies Allergy/AdvReac Type Severity Reaction Status Date / Time Penicillins Allergy Rash/Hives Verified 11/30/17 23:17 propofol Allergy Unknown Verified 11/30/17 23:17 sulfamethoxazole AdvReac Abdominal Verified 11/30/17 23:17 [From Bactrim] Pain trimethoprim [From Bactrim] AdvReac Abdominal Verified 11/30/17 23:17 Pain Surgical - Exam Osteopathic Statement: *. No significant issues noted on an osteopathic structural exam other than those noted in the History and Physical/Consult. 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 Hard firm and bony in the midline of the hard palate normal pinna, normal mucosa, no congestion - Neck no masses, no bruits, trachea midline, no lymphadectomy, no venous distension - Respiratory normal expansion, normal respiratory effort - Abdomen Abdomen: soft - Integumentary no rash - Neurologic normal coordination - Musculoskeletal normal posture - Psychiatric oriented to time, oriented to person, oriented to place, speech is normal, memory intact Results - Labs 12/06/17 07:50 12/06/17 07:50 Abnormal Lab Results - Last 24 Hours (Table) 12/05/17 12/06/17 12/06/17 Range/Units 19:57 07:50 07:50 RBC 3.67 L (3.80-5.40) m/uL Hgb 11.2 L (11.4-16.0) gm/dL RDW 15.6 H (11.5-15.5) % Plt Count 131 L (150-450) k/uL Neutrophils # 8.0 H (1.3-7.7) k/uL Lymphocytes # 0.6 L (1.0-4.8) k/uL Carbon Dioxide 21 L (22-30) mmol/L BUN 58 H (7-17) mg/dL Creatinine 1.15 H (0.52-1.04) mg/dL POC Glucose (mg/dL) 146 H (75-99) mg/dL Alkaline Phosphatase 238 H (38-126) U/L Total Protein 6.0 L (6.3-8.2) g/dL Albumin 3.3 L (3.5-5.0) g/dL 12/06/17 12/06/17 Range/Units 12:42 17:38 RBC (3.80-5.40) m/uL Hgb (11.4-16.0) gm/dL RDW (11.5-15.5) % Plt Count (150-450) k/uL Neutrophils # (1.3-7.7) k/uL Lymphocytes # (1.0-4.8) k/uL Carbon Dioxide (22-30) mmol/L BUN (7-17) mg/dL Creatinine (0.52-1.04) mg/dL POC Glucose (mg/dL) 120 H 178 H (75-99) mg/dL Alkaline Phosphatase (38-126) U/L Total Protein (6.3-8.2) g/dL Albumin (3.5-5.0) g/dL Microbiology - Last 24 Hours (Table) 12/02/17 01:00 Blood Culture - Preliminary Blood No Growth after 96 hours Diabetes panel 12/06/17 Range/Units 07:50 Sodium 140 (137-145) mmol/L Potassium 4.4 (3.5-5.1) mmol/L Chloride 105 (98-107) mmol/L Carbon Dioxide 21 L (22-30) mmol/L BUN 58 H (7-17) mg/dL Creatinine 1.15 H (0.52-1.04) mg/dL Glucose 85 (74-99) mg/dL Calcium 9.7 (8.4-10.2) mg/dL AST 19 (14-36) U/L ALT 25 (9-52) U/L Alkaline Phosphatase 238 H (38-126) U/L Total Protein 6.0 L (6.3-8.2) g/dL Albumin 3.3 L (3.5-5.0) g/dL Calcium panel 12/06/17 Range/Units 07:50 Calcium 9.7 (8.4-10.2) mg/dL Albumin 3.3 L (3.5-5.0) g/dL Pituitary panel 12/06/17 Range/Units 07:50 Sodium 140 (137-145) mmol/L Potassium 4.4 (3.5-5.1) mmol/L Chloride 105 (98-107) mmol/L Carbon Dioxide 21 L (22-30) mmol/L BUN 58 H (7-17) mg/dL Creatinine 1.15 H (0.52-1.04) mg/dL Glucose 85 (74-99) mg/dL Calcium 9.7 (8.4-10.2) mg/dL Adrenal panel 12/06/17 Range/Units 07:50 Sodium 140 (137-145) mmol/L Potassium 4.4 (3.5-5.1) mmol/L Chloride 105 (98-107) mmol/L Carbon Dioxide 21 L (22-30) mmol/L BUN 58 H (7-17) mg/dL Creatinine 1.15 H (0.52-1.04) mg/dL Glucose 85 (74-99) mg/dL Calcium 9.7 (8.4-10.2) mg/dL Total Bilirubin 0.7 (0.2-1.3) mg/dL AST 19 (14-36) U/L ALT 25 (9-52) U/L Alkaline Phosphatase 238 H (38-126) U/L Total Protein 6.0 L (6.3-8.2) g/dL Albumin 3.3 L (3.5-5.0) g/dL Assessment and Plan (1) Torus palatinus Current Visit: Yes Status: Acute Code(s): M27.0 - DEVELOPMENTAL DISORDERS OF JAWS SNOMED Code(s): 73134379 Plan: 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 This is a benign bony growth that is not uncommon. The prevalence of his condition ranges from 9-60%. In the [place] the prevalence is between 20- 35% of the population has this condition. 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 This is completely benign and no treatment is needed. If there are any changes please let me know. Otherwise the patient is to see me on an as-needed basis. Time with Patient: Greater than 30
--- NOTE | 2017-12-06 20:26 | PN ---
PROGRESS NOTE Patient is seen for followup for acute kidney injury. Her renal function has improved significantly with creatinine down to 1.15 today. EXAMINATION: Patient is comfortable. Blood pressure was 115/56. Patient is afebrile. Heart rate about 71 per minute. HEART: S1, S2. LUNGS: Bilateral breath sounds are heard. Abdomen is soft, nontender. Lower extremities show extremities to be wrapped. CLOTH BLEACHING RANGE TENDER is grossly intact. LABS: Show serum creatinine of 1.15, sodium 140, potassium 4.4. Hemoglobin 11.2 g/dL. ASSESSMENT: 1. Acute kidney injury, acute tubular necrosis, nonoliguric secondary to hypotension, hypoperfusion, currently improved. We can increase the dose of Lasix to help with the healing of the wound. 2. Cardiomyopathy, ejection fraction 20%-25%. 3. Congestive heart failure, acute on top of chronic, mainly systolic, currently improved. 4. Hyperkalemia on initial admission, now improved. 5. Hypotension, maintained on midodrine. PLAN: Can increase Lasix to b.i.d. and monitor renal function as outpatient post discharge. MMODL / IJN: [id number] /
[2017-12-06 20:52] LABS: Glucose,Whole Blood 203 mg/dL (75-99)
--- NOTE | 2017-12-06 20:56 | PN ---
PROGRESS NOTE DATE OF SERVICE: 12/06/2017. REASON FOR FOLLOWUP VISIT: 1. Fever low-grade on admission, questionably early pneumonia. 2. Patient with a positive blood culture contamination. 3. Right leg wound, no cellulitis. INTERVAL HISTORY: The patient is afebrile. She is breathing comfortably. Denies having any chest pain. Denies some problem with breathing last night. No nausea, vomiting, abdominal pain and no pain in the right leg area. EXAMINATION: Blood pressure is 115/56 with a pulse of 71, temperature 96.8. She is 93% on room air. General description is an elderly female up in the chair in no distress. Respiratory system: Unlabored breathing. Decreased breath sounds in the bases, no wheeze. Heart S1, S2. Regular rate and rhythm. Abdomen soft, no tenderness. Right leg wound is currently dressed up. No obvious drainage on the dressing. LABS: Hemoglobin 11.2, white count 9.4, BUN of 58, creatinine is 1.15. DIAGNOSTIC IMPRESSION/PLAN: 1. Patient admitted to the hospital with low-grade fever with concern for possible early pneumonia fever responding to the Rocephin that will be continued to finish therapy with oral Ceftin for short course. 2. Positive blood culture with skin contamination. Repeat blood cultures negative. No need for further workup for the same. 3. Patient with a right leg wound with stasis ulcer. No cellulitis. Continue local wound care with Santyl. MMODL / IJN: [id number] /
[2017-12-06] MEDS: traZODone HCL 50 MG TAB PO SCH (21:48)
[2017-12-06] MEDS: PREGABALIN 50 MG CAP PO SCH (21:48)
[2017-12-06] MEDS: PANTOPRAZOLE 40 MG TABLET PO SCH (22:22)
[2017-12-06] MEDS: HYDROcodone/APAP 7.5-325MG 1 EACH TAB PO PRN (23:31)
[2017-12-07] MEDS: SODIUM CHLORIDE 0.9% 1,000 ML IV SCH (00:42)
[2017-12-07 07:12] LABS: Glucose,Whole Blood 191 mg/dL (75-99)
[2017-12-07 08:38] VITALS: BMI 31.0
[2017-12-07] MEDS: DOCUSATE 100 MG CAP PO SCH ×2 (09:18→17:05)
[2017-12-07] MEDS: INSULIN ASPART 100 UNIT/ML 1 ML 10 ML VIAL SQ SCH ×4 (09:18→23:12)
[2017-12-07] MEDS: ALLOPURINOL 300 MG TAB PO SCH (09:19)
[2017-12-07] MEDS: MIDODRINE 5 MG TAB PO SCH ×2 (09:19→17:05)
[2017-12-07] MEDS: INSULN ASP PRT/INSULIN ASPART 100 UNIT/ML 10 ML VIAL SQ SCH ×2 (09:19→23:18)
[2017-12-07] MEDS: METOPROLOL TARTRATE 25 MG TAB PO SCH ×2 (09:19→21:41)
[2017-12-07] MEDS: ASPIRIN 81 MG PO SCH (09:19)
[2017-12-07] MEDS: NYSTATIN 100,000 UNIT/ML SUSP 500,000 UNIT/5 ML CUP PO SCH ×4 (09:20→21:41)
[2017-12-07] MEDS: HEPARIN SODIUM,PORCINE 5,000 UNIT/ML 1 ML VIAL SQ SCH ×2 (09:20→21:42)
[2017-12-07] MEDS: FUROSEMIDE 40 MG TAB PO SCH ×2 (09:20→21:41)
[2017-12-07] MEDS: cefTRIAXone IN SWFI 1,000 MG/10 ML SYRINGE IVP SCH (09:20)
[2017-12-07 09:24] LABS: Albumin 3.5 g/dL (3.5-5.0); Calcium 9.5 mg/dL (8.4-10.2); Potassium 4.3 mmol/L (3.5-5.1); Total Bilirubin 0.8 mg/dL (0.2-1.3); Total Protein 6.1 g/dL (6.3-8.2)
--- NOTE | 2017-12-07 09:31 | P.PN ---
Subjective Progress Note Date: 12/07/17 Principal diagnosis: Dysphagia Admitted with altered mental status with underlying CHF acute kidney injury. UGI yesterday reported suboptimal study without obvious intraluminal mass or stricture. Underlying esophageal dysmotility is present. Nursing reports no episodes of nausea vomiting hematemesis hematochezia or melena. Poor appetite but is tolerating modified diet. Objective - Vital Signs Vital signs: Vital Signs Temp 98.0 F 12/07/17 06:48 Pulse 103 H 12/07/17 06:48 Resp 20 12/07/17 06:48 BP 108/65 12/07/17 06:48 Pulse Ox 97 12/07/17 06:48 Intake & Output 12/06/17 12/07/17 12/07/17 18:59 06:59 18:59 Intake Total 120 Balance 120 Weight 82 kg 82 kg Intake: Oral 120 Other: # Voids 3 # Bowel Movements 2 - Exam General appearance: The patient arousable confused but follows simple commands. HET: Head is normocephalic and atraumatic. Pupils are equal and reactive. Oropharynx is clear with approximate 0.5 cm round raised non necrotic nonbleeding soft tissue mass in the upper palate. Neck: Supple without lymphadenopathy. Trachea midline. Heart: S1 S2. Regular rate and rhythm. Lungs: No crackles or wheezes are heard. Abdomen: Soft, nontender, nondistended with bowel sounds. No peritoneal signs. No palpable organomegaly or masses. Extremities: Normal skin color and turgor. No cyanosis, rash, ulceration, clubbing, or edema. Radial and pedal pulses are 2/4 bilaterally. Neurological: No focal deficits. Strength and sensation are grossly intact. - Labs CBC & Chem 7: 12/06/17 07:50 12/06/17 07:50 Labs: Abnormal Lab Results - Last 24 Hours (Table) 12/06/17 12/06/17 12/06/17 Range/Units 12:42 17:38 20:40 POC Glucose (mg/dL) 120 H 178 H 203 H (75-99) mg/dL 12/07/17 Range/Units 07:10 POC Glucose (mg/dL) 191 H (75-99) mg/dL Microbiology - Last 24 Hours (Table) 12/02/17 01:00 Blood Culture - Preliminary Blood No Growth after 120 hours Assessment and Plan (1) Dysphagia Narrative/Plan: 77-year-old female admitted with acute kidney injury acute on chronic congestive heart failure altered mental status low-grade fever with reports of dysphagia. Possible pre-esophageal in origin. Upper GI barium study yesterday was suboptimal without obvious intraluminal mass or stricture. Underlying esophageal dysmotility is present with evidence of secondary and tertiary contractions possible presbyesophagus. Current Visit: Yes Status: Acute Code(s): R13.10 - DYSPHAGIA, UNSPECIFIED SNOMED Code(s): 14294302 (2) Mass of palate Current Visit: Yes Status: Acute Code(s): R22.0 - LOCALIZED SWELLING, MASS AND LUMP, HEAD SNOMED Code(s): 363899771 (3) Altered mental state Current Visit: Yes Status: Acute Code(s): R41.82 - ALTERED MENTAL STATUS, UNSPECIFIED SNOMED Code(s): 680030866 Plan: 1. Continue modified diet and assistance with meals. Inpatient endoscopic exams not planned at this time but contingent on clinical course. 2. ENT evaluation recommendations noted in appreciated. Palate soft tissue mass considered benign. 3. We'll continue to follow with you. Assessment and plan a care discussed with Dr. Godinez
[2017-12-07 10:00] LABS: Basophils # (A) 0.1 k/uL (0-0.2); Basophils % (A) 1 %; Eosinophils # (A) 0.1 k/uL (0-0.7); Eosinophils % (A) 1 %; HCT 38.7 % (34.0-46.0); Hypochromasia Slight; Lymphocytes % (A) 9 %; MCH 30.5 pg (25.0-35.0); MCHC 31.1 g/dL (31.0-37.0); MCV 98.2 fL (80.0-100.0); Macrocytosis Slight; Mean Platelet Volume 7.9; Monocytes # (A) 0.4 k/uL (0-1.0); Monocytes % (A) 4 %; Neutrophils # (A) 8.8 k/uL (1.3-7.7); Neutrophils % (A) 84 %; Platelet Count 154 k/uL (150-450); RBC 3.95 m/uL (3.80-5.40); WBC 10.6 k/uL (3.8-10.6)
--- NOTE | 2017-12-07 10:41 | CDI ---
Last Revision, August 2017 Documentation Clarification Form Date: 12/07/17 1036 From: Meghna Kiser RN, CCDS Admit Date: 12/01/2017 12:30:00 AM Patient Name: Shi Cam Visit Number: [id number] ATTENTION: The Clinical Documentation Specialists (CDI) and [facility] Coding Staff appreciate your assistance in clarifying documentation. Please respond to the clarification below the line at the bottom and electronically sign. The CDI & [facility] Coding staff will review the response and follow-up if needed. Please note: Queries are made part of the Legal Health Record. If you have any questions, please contact the author of this message via ITS. Dr. Giovanny Cesar Pneumonia was documented in the ID notes. History/Risk Factors: From NH with c/o confusion and hallucinations, SOB, Diarrhea Clinical Indicators: 12/06 ID: "Patient admitted to the hospital with low-grade fever with concern for possible early pneumonia fever responding to the Rocephin that will be continued to finish therapy with oral Ceftin for short course." 12/07 GI: "altered mental status low-grade fever with reports of dysphagia. Underlying esophageal dysmotility is present with evidence of secondary and tertiary contractions possible presbyesophagus." WBC: 15/13.1/14.7/12.2/9.9/6.9/9.4/10.6 Left Shift: 13.4/10.9/13.5/10.7/7.9/5.3/8/8.8 CXR: "Trace left pleural effusion with no focal opacity to suggest pneumonia." 12/06 Attending Lung/Breathing assessment: "Lungs crackles in the right lower base." Treatment: Antibiotics: Rocephin 1 gm IVP Q 24 hrs, Levaquin 750 mg IVPB x1, Flagyl 500 mg IVPB Q 8hrs, Iv vanco 1500 mg IVPB Q 24 hrs O2: room air to 2L NC Breathing TX: Duoneb QID PRN In order to capture the severity of condition, please clarify if the condition signifies and you are treating for: Aspiration Pneumonia, identify if: Due to solids or liquids Bacterial Pneumonia, specify causal organism (if known) Gram Negative Pneumonia Due to Strep Due to Staph Due to E. coli Other bacteria (please specify) Other, please specify Unable to determine Please continue to document in your progress notes and discharge summary in order to capture severity of illness and risk of mortality. Include clinical findings that support your diagnosis. MTDD
[2017-12-07 11:56] LABS: Glucose,Whole Blood 123 mg/dL (75-99)
[2017-12-07] MEDS: COLLAGENASE 250 UNIT/GM OINTMENT 30 GM TUBE TOPICAL SCH (13:43)
--- NOTE | 2017-12-07 16:24 | PN ---
PROGRESS NOTE DATE OF SERVICE: 12/07/2017 REASON FOR FOLLOWUP: 1. Fever on admission, possible early pneumonia. 2. Right leg venostasis ulcer; no cellulitis. INTERVAL HISTORY: The patient is afebrile. She is breathing comfortably. Did mention she was having some abdominal pain last night, and overall intake remains poor, with poor appetite but no nausea, no vomiting and no diarrhea. Denies any pain in the right leg area. PHYSICAL EXAMINATION: Blood pressure 108/65 with a pulse of 103, temperature of 98. She is 97% on 2 L nasal cannula. General description is an elderly female up in the chair in no distress. RESPIRATORY SYSTEM: Unlabored breathing. Clear to auscultation anteriorly. HEART: S1, S2. Regular rate and rhythm. ABDOMEN: Soft. No tenderness. Right leg wound is currently dressed up. No obvious drainage on the dressing. LABS: Hemoglobin 12, white count 10.6, BUN of 53, creatinine 1.17. DIAGNOSTIC IMPRESSION AND PLAN: 1. Patient admitted to hospital with mental status change. Did have a low-grade fever, question of possible early pneumonia. Overall she is responding to the Rocephin she is currently on; it may be discontinued after about a week of antibiotic therapy. 2. Patient with a right leg wound with no evidence of any cellulitis. Continue local wound care with Santyl followed by moist dressing. Keep the area off pressure. MMODL / IJN: [id number] /
[2017-12-07] MEDS: POLYETHYLENE GLYCOL 3350 17 GM POWD.PACK PO SCH (16:43)
[2017-12-07] MEDS: FERROUS SULFATE 325 MG TAB PO SCH (17:05)
[2017-12-07] MEDS: CHOLECALCIFEROL 1,000 UNIT TAB PO SCH (17:05)
[2017-12-07] MEDS: LEVOTHYROXINE 25 MCG TAB PO SCH (17:05)
[2017-12-07 17:14] LABS: Glucose,Whole Blood 81 mg/dL (75-99)
[2017-12-07 17:15] LABS: Glucose,Whole Blood 68 mg/dL (75-99)
--- NOTE | 2017-12-07 18:11 | P.PN ---
Subjective Progress Note Date: 12/07/17 This is a 77 -year-old female with a known past medical history of atrial fibrillation, congestive heart failure, diabetes mellitus, hypertension, myocardial infarction, CABG with cardiac stents, chronic kidney disease and hypothyroidism. She also has a chronic right leg wound in which she follows with Dr. Mejias in the wound care clinic. Patient is currently been at [facility] for rehabilitation. Her daughter patient has been very confused having hallucinations and not been herself. On admission her glucose was 447, she had a temp of 100.8 white count elevated at 15. Potassium elevated at 6. BNP elevated at 13,800. Urinalysis was negative influenza screen negative. Chest x-ray showed poor inspiration no evidence of an infection. EKG first-degree AV block with PACs. Patient received Kayexalate in the emergency room. Awaiting repeat potassium level. Patient reports having diarrhea off and on for the last 3 weeks. But it usually just one episode for that day and then a few days with a regular bowel movements. She denies any nausea or vomiting. Denies any chest pain. Occasional shortness of breath. She was started on IV Lasix for possible CHF exacerbation. Her insulin has been restarted. Patient reports taking her insulin at [address] [place]. She denies any burning with urination. Denies any sore throat earache runny nose or congestion. Infectious disease, psychiatry and cardiology of been consulted. Infectious disease has placed patient on Rocephin and Flagyl for possible abdominal source. 12/02/2017 patient sleeping comfortably this morning when evaluated. She is arousable and able to answer questions. Poor appetite this morning. Reports that her legs are hurting. Her insulin was held this morning for blood sugar 101. Patient denies any chest pain or shortness of breath. Denies any nausea or vomiting. Did have a bowel movement after the Kayexalate. Potassium is coming down from 6-4.6. Denies any burning with urination. White count has come up from 13.1-14.7. Computed tomography scan of the brain with cerebral atrophy with central cerebral atrophy and secondary mild ventriculomegaly. Mild changes of chronic small vessel ischemic changes. No acute intracranial abnormality. Computed tomography scan of the abdomen showing cardiomegaly. Right pleural effusion. Mild atelectasis at the right lung base. Pleural fluid increased compared to old exam. There is improved aeration of lung bases compared to old exam. There is no ascites fluid in the abdomen.. Could correlate to chronic congestive heart failure. Calcified urine fibroids. Stable small right he will hernia that contains fat. Stable varicose veins in the suprapubic region that raises the possibility of pelvic venous obstruction. Patient is on IV Lasix. Still reporting some shortness of breath. Denies any chest pain. Denies any nausea or vomiting. 12/05/2017 patient is sitting up in bedside chair comfortably. Reports improvement in her breathing. She is still having difficulty with swallowing. On antibiotics for possible pneumonia. Denies cough. Kidney functions are showing improvement over the weekend. Creatinine is down to 1.56. Patient denies any chest pain nausea or vomiting. Reports having bowel movements. Denies any burning with urination. 12/06/2017 patient sitting up in bedside chair. Underwent esophagram today showing no mass or stricture underlying esophageal dysmotility is present. Chest x-ray from yesterday shows no pneumonia. She is having regular bowel movements. Denies any chest pain or shortness of breath. Creatinine is improving down to 1.15 On 12/07/2017 patient is alert somnolent in no apparent distress complaining of sore tongue complaining of drowsiness and fatigue she denies any chest pain or shortness of breath she has not been out of bed no nausea or vomiting no abdominal pain and no urinary symptoms. Potassium is down to normal level at 4.3 at this time will resume and Entresto at the lowest dose will continue to withhold Aldactone Objective - Vital Signs Vital signs: Vital Signs Temp 97.0 F L 12/07/17 15:00 Pulse 67 12/07/17 15:00 Resp 16 12/07/17 15:00 BP 113/85 12/07/17 15:00 Pulse Ox 100 12/07/17 15:00 Intake & Output 12/06/17 12/07/17 12/07/17 18:59 06:59 18:59 Intake Total 120 Balance 120 Weight 82 kg 79.605 kg Intake: Oral 120 Other: # Voids 3 3 # Bowel Movements 2 1 - Exam Head normocephalic and atraumatic Neck supple no JVD no goiter Lungs crackles in the right lower base Heart regular rate and rhythm S1-S2, no rub or gallop Abdomen is soft nontender nondistended positive bowel sounds no hepatosplenomegaly Extremities no edema. Chronic leg wound on the right leg no evidence of acute infection Neuro alert and orientated to 3 - Labs CBC & Chem 7: 12/07/17 08:22 12/07/17 08:22 Labs: Abnormal Lab Results - Last 24 Hours (Table) 12/06/17 12/07/17 12/07/17 Range/Units 20:40 07:10 08:22 RDW 16.0 H (11.5-15.5) % Neutrophils # 8.8 H (1.3-7.7) k/uL BUN (7-17) mg/dL Creatinine (0.52-1.04) mg/dL Glucose (74-99) mg/dL POC Glucose (mg/dL) 203 H 191 H (75-99) mg/dL AST (14-36) U/L Alkaline Phosphatase (38-126) U/L Total Protein (6.3-8.2) g/dL 12/07/17 12/07/17 12/07/17 Range/Units 08:22 11:53 16:51 RDW (11.5-15.5) % Neutrophils # (1.3-7.7) k/uL BUN 53 H (7-17) mg/dL Creatinine 1.17 H (0.52-1.04) mg/dL Glucose 169 H (74-99) mg/dL POC Glucose (mg/dL) 123 H 68 L (75-99) mg/dL AST 87 H (14-36) U/L Alkaline Phosphatase 224 H (38-126) U/L Total Protein 6.1 L (6.3-8.2) g/dL Microbiology - Last 24 Hours (Table) 12/02/17 01:00 Blood Culture - Preliminary Blood No Growth after 120 hours Assessment and Plan Plan: 1. Altered mental status changes: Possibly a metabolic encephalopathy secondary to infection, congestive heart failure or hyperglycemia. Computed tomography scan of the brain shows no acute intracranial abnormality. 2. Bacteremia with blood culture growing staph epidermidis. This is a contamination. Vancomycin discontinued. 3. Acute on chronic systolic congestive heart failure with an EF of 20-25% that was noted on echo in September 2017. Patient had elevated BNP on admission. IV Lasix discontinued switched over to oral Lasix 4. Hallucinations and delirium evaluated by psychiatry. Medications adjusted. Hallucinations seem to be improving 5. Hyperkalemia: Aldactone and Entresto discontinued. Potassium level now down to normal, will resume Entresto continue to withhold Aldactone 6. Insulin-dependent diabetes mellitus with elevated blood sugar of 447 on admission. continue Home insulin. Add sliding scale coverage. No ketones in urine. Blood sugars now stable 7. History of ischemic cardiomyopathy status post AICD 8. Acute on Chronic kidney disease, stage III. Acute kidney injury secondary to hypotension. Has been seen by nephrology. Kidney functions are improving. Lasix dose was decreased to 40 mg by mouth daily 9. History of coronary artery disease with prior bypass surgery and cardiac Stents 10. Paroxysmal atrial fibrillation: Not on anticoagulation due to frequent falls 11. Chronic right leg venous stasis ulcer: Followed at wound care center by Dr. Mejias. No evidence of cellulitis. Continue local wound care. Infectious disease following 12. Dysphagia seen by GI service. Patient underwent esophagram showing no stricture or mass. Did reveal an underlying esophageal dysmotility present. 13. Possibility of a pelvic venous obstruction noted on CAT scan of the abdomen. Patient evaluated by Dr. Vang. And she will follow-up with him in the outpatient setting for further workup 14. Oral candidiasis receiving nystatin swish and swallow GI prophylaxis Protonix and DVT prophylaxis subcu heparin
[2017-12-07 20:59] LABS: Glucose,Whole Blood 105 mg/dL (75-99)
[2017-12-07] MEDS: PREGABALIN 50 MG CAP PO SCH (21:41)
[2017-12-07] MEDS: PANTOPRAZOLE 40 MG TABLET PO SCH (21:41)
[2017-12-07] MEDS: traZODone HCL 50 MG TAB PO SCH (21:41)
[2017-12-08] MEDS: SACUBITRIL/VALSARTAN 24 MG-26 MG TABLET PO SCH ×4 (01:22→21:54)
[2017-12-08 01:52] LABS: Calcium 9.7 mg/dL (8.4-10.2); Magnesium 1.8 mg/dL (1.6-2.3); Phosphorus 3.5 mg/dL (2.5-4.5)
[2017-12-08 02:13] LABS: Creatine Kinase MB 8.5 ng/mL (0.0-2.4); Troponin I 6.48 ng/mL (0.000-0.034)
[2017-12-08] MEDS ORDERED: HEPARIN SODIUM,PORCINE 5,000 UNIT/ML 1 ML VIAL IV PRN ×2 (02:33→03:49)
[2017-12-08] MEDS ORDERED: HEPARIN SODIUM,PORCINE 10,000 UNIT/ML 1 ML VIAL IV ONE (02:33)
[2017-12-08] MEDS ORDERED: HEPARIN SOD,PORK IN 0.45% NACL 25,000 UNIT in 0.45% NACL 1 500ML.BAG IV SCH ×2 (02:45→04:00)
[2017-12-08 02:46] LABS: Basophils # (A) 0.1 k/uL (0-0.2); Basophils % (A) 1 %; Eosinophils # (A) 0.1 k/uL (0-0.7); Eosinophils % (A) 2 %; HCT 35.1 % (34.0-46.0); HGB 10.8 gm/dL (11.4-16.0); Hypochromasia Moderate; Lymphocytes # (A) 1.2 k/uL (1.0-4.8); Lymphocytes % (A) 14 %; MCH 30.1 pg (25.0-35.0); MCHC 30.7 g/dL (31.0-37.0); MCV 98.1 fL (80.0-100.0); Macrocytosis Slight; Mean Platelet Volume 8.6; Monocytes # (A) 0.5 k/uL (0-1.0); Monocytes % (A) 6 %; Neutrophils # (A) 7.1 k/uL (1.3-7.7); Neutrophils % (A) 78 %; Platelet Count 127 k/uL (150-450); RBC 3.58 m/uL (3.80-5.40); RDW 15.7 % (11.5-15.5); WBC 9.1 k/uL (3.8-10.6)
[2017-12-08 03:21] LABS: INR 1.3 (<1.2); Partial Thromboplastin Time 22.7 sec (22.0-30.0); Prothrombin Time 12.4 sec (9.0-12.0)
[2017-12-08] MEDS: SODIUM CHLORIDE 0.9% 1,000 ML IV SCH ×2 (03:43→21:55)
[2017-12-08] MEDS: INSULIN ASPART 100 UNIT/ML 1 ML 10 ML VIAL SQ SCH ×4 (06:02→20:58)
[2017-12-08 06:03] LABS: Glucose,Whole Blood 71 mg/dL (75-99)
[2017-12-08 06:15] LABS: Basophils # (A) 0.1 k/uL (0-0.2); Basophils % (A) 1 %; Eosinophils # (A) 0.2 k/uL (0-0.7); Eosinophils % (A) 2 %; HCT 35.2 % (34.0-46.0); HGB 10.7 gm/dL (11.4-16.0); Hypochromasia Moderate; Lymphocytes # (A) 1.2 k/uL (1.0-4.8); Lymphocytes % (A) 12 %; MCH 29.8 pg (25.0-35.0); MCHC 30.5 g/dL (31.0-37.0); MCV 97.6 fL (80.0-100.0); Mean Platelet Volume 8.2; Monocytes # (A) 0.5 k/uL (0-1.0); Monocytes % (A) 5 %; Neutrophils # (A) 7.7 k/uL (1.3-7.7); Neutrophils % (A) 79 %; Platelet Count 140 k/uL (150-450); RBC 3.61 m/uL (3.80-5.40); RDW 15.7 % (11.5-15.5); WBC 9.8 k/uL (3.8-10.6)
[2017-12-08] MEDS: MIDODRINE 5 MG TAB PO SCH ×2 (06:25→18:24)
[2017-12-08 06:31] LABS: Glucose,Whole Blood 77 mg/dL (75-99)
[2017-12-08 07:27] LABS: Albumin 3.2 g/dL (3.5-5.0); Calcium 9.4 mg/dL (8.4-10.2); Potassium 3.8 mmol/L (3.5-5.1); Total Bilirubin 0.6 mg/dL (0.2-1.3); Total Protein 5.7 g/dL (6.3-8.2)
[2017-12-08] MEDS: ALLOPURINOL 300 MG TAB PO SCH (08:08)
[2017-12-08] MEDS: DOCUSATE 100 MG CAP PO SCH ×2 (08:08→18:15)
[2017-12-08] MEDS: INSULN ASP PRT/INSULIN ASPART 100 UNIT/ML 10 ML VIAL SQ SCH ×2 (08:09→21:10)
[2017-12-08] MEDS: ASPIRIN 81 MG PO SCH (08:09)
[2017-12-08] MEDS: NYSTATIN 100,000 UNIT/ML SUSP 500,000 UNIT/5 ML CUP PO SCH ×4 (08:10→21:10)
[2017-12-08] MEDS: FUROSEMIDE 40 MG TAB PO SCH ×2 (08:10→21:10)
[2017-12-08] MEDS: METOPROLOL TARTRATE 25 MG TAB PO SCH ×2 (08:10→21:09)
[2017-12-08] MEDS: cefTRIAXone IN SWFI 1,000 MG/10 ML SYRINGE IVP SCH (10:41)
[2017-12-08] MEDS: HYDROcodone/APAP 7.5-325MG 1 EACH TAB PO PRN (10:51)
[2017-12-08 11:28] LABS: Glucose,Whole Blood 91 mg/dL (75-99)
--- NOTE | 2017-12-08 11:42 | P.PN ---
Subjective Progress Note Date: 12/08/17 This is a 77 -year-old female with a known past medical history of atrial fibrillation, congestive heart failure, diabetes mellitus, hypertension, myocardial infarction, CABG with cardiac stents, chronic kidney disease and hypothyroidism. She also has a chronic right leg wound in which she follows with Dr. Mejias in the wound care clinic. Patient is currently been at [facility] for rehabilitation. Her daughter patient has been very confused having hallucinations and not been herself. On admission her glucose was 447, she had a temp of 100.8 white count elevated at 15. Potassium elevated at 6. BNP elevated at 13,800. Urinalysis was negative influenza screen negative. Chest x-ray showed poor inspiration no evidence of an infection. EKG first-degree AV block with PACs. Patient received Kayexalate in the emergency room. Awaiting repeat potassium level. Patient reports having diarrhea off and on for the last 3 weeks. But it usually just one episode for that day and then a few days with a regular bowel movements. She denies any nausea or vomiting. Denies any chest pain. Occasional shortness of breath. She was started on IV Lasix for possible CHF exacerbation. Her insulin has been restarted. Patient reports taking her insulin at [address] [place]. She denies any burning with urination. Denies any sore throat earache runny nose or congestion. Infectious disease, psychiatry and cardiology of been consulted. Infectious disease has placed patient on Rocephin and Flagyl for possible abdominal source. 12/02/2017 patient sleeping comfortably this morning when evaluated. She is arousable and able to answer questions. Poor appetite this morning. Reports that her legs are hurting. Her insulin was held this morning for blood sugar 101. Patient denies any chest pain or shortness of breath. Denies any nausea or vomiting. Did have a bowel movement after the Kayexalate. Potassium is coming down from 6-4.6. Denies any burning with urination. White count has come up from 13.1-14.7. Computed tomography scan of the brain with cerebral atrophy with central cerebral atrophy and secondary mild ventriculomegaly. Mild changes of chronic small vessel ischemic changes. No acute intracranial abnormality. Computed tomography scan of the abdomen showing cardiomegaly. Right pleural effusion. Mild atelectasis at the right lung base. Pleural fluid increased compared to old exam. There is improved aeration of lung bases compared to old exam. There is no ascites fluid in the abdomen.. Could correlate to chronic congestive heart failure. Calcified urine fibroids. Stable small right he will hernia that contains fat. Stable varicose veins in the suprapubic region that raises the possibility of pelvic venous obstruction. Patient is on IV Lasix. Still reporting some shortness of breath. Denies any chest pain. Denies any nausea or vomiting. 12/05/2017 patient is sitting up in bedside chair comfortably. Reports improvement in her breathing. She is still having difficulty with swallowing. On antibiotics for possible pneumonia. Denies cough. Kidney functions are showing improvement over the weekend. Creatinine is down to 1.56. Patient denies any chest pain nausea or vomiting. Reports having bowel movements. Denies any burning with urination. 12/06/2017 patient sitting up in bedside chair. Underwent esophagram today showing no mass or stricture underlying esophageal dysmotility is present. Chest x-ray from yesterday shows no pneumonia. She is having regular bowel movements. Denies any chest pain or shortness of breath. Creatinine is improving down to 1.15 12/08/2017 patient was transferred to the sixth floor last night for cardiac arrhythmia. Cardiology was consulted. Patient denies any chest pain. She just reports not feeling right and felt that her heart was racing. Denies any nausea or vomiting. Denies any bowel movement changes. Daughter is concerned that patient may not been urinating enough during the day. Patient is incontinent of urine. Nursing staff notified and will monitor closely. And will check a post void residual. Voiding record from yesterday reveals 3 diapers with urine. And has already urinated twice this morning. Patient complains of sore tongue Objective - Vital Signs Vital signs: Vital Signs Temp 98.9 F 12/08/17 04:24 Pulse 89 12/08/17 07:45 Resp 18 12/08/17 07:45 BP 123/71 12/08/17 07:45 Pulse Ox 100 12/08/17 07:45 Intake & Output 12/07/17 12/08/17 12/08/17 18:59 06:59 18:59 Intake Total 146 240 Balance 146 240 Weight 79.605 kg Intake: Intake, IV Titration 96 Amount Heparin Sod,Pork in 0.45% 36 NaCl 25,000 unit In 0.45 % NaCl 1 500ml.bag @ 12 UNITS/KG/HR 19.1 mls/hr IV .Q24H [facility] Rx#: [id number] Sodium Chloride 0.9% 1, 60 000 ml @ 20 mls/hr IV . Q24H [facility] Rx#:[id number] Oral 50 240 Other: Voiding Method Diaper Bedside Commode Incontinent Diaper Incontinent # Voids 3 2 # Bowel Movements 1 - Exam Head normocephalic Neck supple Lungs crackles in the right lower base Heart regular rate and rhythm S1-S2, no rub or gallop Abdomen is soft nontender nondistended positive bowel sounds no hepatosplenomegaly Extremities no edema. Chronic leg wound on the right leg no evidence of acute infection Neuro alert and orientated to 3 - Labs CBC & Chem 7: 12/08/17 05:37 12/08/17 05:37 Labs: Abnormal Lab Results - Last 24 Hours (Table) 12/07/17 12/07/17 12/07/17 Range/Units 11:53 16:51 20:58 RBC (3.80-5.40) m/uL Hgb (11.4-16.0) gm/dL MCHC (31.0-37.0) g/dL RDW (11.5-15.5) % Plt Count (150-450) k/uL PT (9.0-12.0) sec INR (<1.2) APTT (22.0-30.0) sec BUN (7-17) mg/dL Creatinine (0.52-1.04) mg/dL Glucose (74-99) mg/dL POC Glucose (mg/dL) 123 H 68 L 105 H (75-99) mg/dL AST (14-36) U/L Alkaline Phosphatase (38-126) U/L CK-MB (CK-2) (0.0-2.4) ng/mL Troponin I (0.000-0.034) ng/mL Total Protein (6.3-8.2) g/dL Albumin (3.5-5.0) g/dL 12/08/17 12/08/17 12/08/17 Range/Units 00:56 00:56 00:56 RBC 3.58 L (3.80-5.40) m/uL Hgb 10.8 L (11.4-16.0) gm/dL MCHC 30.7 L (31.0-37.0) g/dL RDW 15.7 H (11.5-15.5) % Plt Count 127 L (150-450) k/uL PT (9.0-12.0) sec INR (<1.2) APTT (22.0-30.0) sec BUN 53 H (7-17) mg/dL Creatinine 1.20 H (0.52-1.04) mg/dL Glucose (74-99) mg/dL POC Glucose (mg/dL) (75-99) mg/dL AST (14-36) U/L Alkaline Phosphatase (38-126) U/L CK-MB (CK-2) 8.5 H* (0.0-2.4) ng/mL Troponin I 6.480 H* (0.000-0.034) ng/mL Total Protein (6.3-8.2) g/dL Albumin (3.5-5.0) g/dL 12/08/17 12/08/17 12/08/17 Range/Units 00:56 05:37 05:37 RBC 3.61 L (3.80-5.40) m/uL Hgb 10.7 L (11.4-16.0) gm/dL MCHC 30.5 L (31.0-37.0) g/dL RDW 15.7 H (11.5-15.5) % Plt Count 140 L (150-450) k/uL PT 12.4 H (9.0-12.0) sec INR 1.3 H (<1.2) APTT (22.0-30.0) sec BUN 53 H (7-17) mg/dL Creatinine 1.20 H (0.52-1.04) mg/dL Glucose 58 L (74-99) mg/dL POC Glucose (mg/dL) (75-99) mg/dL AST 71 H (14-36) U/L Alkaline Phosphatase 191 H (38-126) U/L CK-MB (CK-2) (0.0-2.4) ng/mL Troponin I (0.000-0.034) ng/mL Total Protein 5.7 L (6.3-8.2) g/dL Albumin 3.2 L (3.5-5.0) g/dL 12/08/17 12/08/17 Range/Units 06:01 10:26 RBC (3.80-5.40) m/uL Hgb (11.4-16.0) gm/dL MCHC (31.0-37.0) g/dL RDW (11.5-15.5) % Plt Count (150-450) k/uL PT (9.0-12.0) sec INR (<1.2) APTT 88.7 H (22.0-30.0) sec BUN (7-17) mg/dL Creatinine (0.52-1.04) mg/dL Glucose (74-99) mg/dL POC Glucose (mg/dL) 71 L (75-99) mg/dL AST (14-36) U/L Alkaline Phosphatase (38-126) U/L CK-MB (CK-2) (0.0-2.4) ng/mL Troponin I (0.000-0.034) ng/mL Total Protein (6.3-8.2) g/dL Albumin (3.5-5.0) g/dL Microbiology - Last 24 Hours (Table) 12/02/17 01:00 Blood Culture - Final Blood No Growth after 144 hours Assessment and Plan Assessment: 1. Altered mental status changes: Possibly a metabolic encephalopathy secondary to infection, congestive heart failure or hyperglycemia. Computed tomography scan of the brain shows no acute intracranial abnormality. 2. Bacteremia with blood culture growing staph epidermidis. This is a contamination. Vanco mycin discontinued. 3. Acute on chronic systolic congestive heart failure with an EF of 20-25% that was noted on echo in September 2017. Patient had elevated BNP on admission. IV Lasix discontinued switched over to oral Lasix 4. Hallucinations and delirium evaluated by psychiatry. Medications adjusted. Hallucinations seem to be improving 5. Hyperkalemia: Aldactone and Entresto discontinued on admission. Potassium level has normalized. Entresto resumed yesterday. Aldactone remains on hold 6. Insulin-dependent diabetes mellitus with elevated blood sugar of 447 on admission. continue Home insulin. Add sliding scale coverage. No ketones in urine. Blood sugars now stable 7. History of ischemic cardiomyopathy status post AICD 8. Acute on Chronic kidney disease, stage III. Acute kidney injury secondary to hypotension. Has been seen by nephrology. Kidney functions are improving. Creatinine up to 1.20. 9. History of coronary artery disease with prior bypass surgery and cardiac Stents 10. Paroxysmal atrial fibrillation: Not on anticoagulation due to frequent falls 11. Chronic right leg venous stasis ulcer: Followed at wound care center by Dr. Mejias. No evidence of cellulitis. Continue local wound care. Infectious disease following 12. Dysphagia seen by GI service. Patient underwent esophagram showing no stricture or mass. Did reveal an underlying esophageal dysmotility present. 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 GI service started diet 13. Possibility of a pelvic venous obstruction noted on CAT scan of the abdomen. Patient evaluated by Dr. Vang. And she will follow-up with him in the outpatient setting for further workup 14. Palate soft tissue mass considered benign evaluated by ENT service. 15. Elevated troponin and possible arrhythmia: Patient required transfer to the sixth floor and cardiology consulted. 16. Oral candidiasis on nystatin swish and swallow GI prophylaxis Protonix and DVT prophylaxis subcu heparin I performed an examination of the patient and discussed their management with the physician Business Analyst Project Manager. I have reviewed the Physician Business Analyst Project Manager's notes and agree with the documented findings and plan of care
--- NOTE | 2017-12-08 12:53 | P.PN ---
Subjective Progress Note Date: 12/08/17 Principal diagnosis: CHF This is a 77-year-old female with past medical history significant for coronary artery disease and prior bypass surgery, paroxysmal atrial fibrillation, not on long-term anticoagulation despite Dr. Wall recommendations, systolic congestive heart failure with prior AICD, hypertension , diabetes, hyperlipidemia, ischemic cardiomyopathy, history of prior ventricular tachycardia. Patient was seen in consultation by Dr. Bradley, she was diuresed on IV Lasix for congestive heart failure. Was changed over to oral diuretics. We had actually signed off of the patient, had been following on a when necessary basis only. Patient apparently had symptoms of generally not feeling well with associated weakness, was felt that she may have some bradycardia. She does have a pacemaker in place which has been functioning appropriately. Because of these symptoms a troponin was requested, troponin came back at 6.4. Patient denies having any chest discomfort, breathing overall has been stable. Blood pressure 122/70 with a heart rate in the 80s. Hemoglobin 10.8, platelet count 127, sodium 140, potassium 4.0, chloride 101, CO2 30, BUN 53, creatinine 1.2. Objective - Vital Signs Vital signs: Vital Signs Temp 96.9 F L 12/08/17 11:35 Pulse 60 12/08/17 11:35 Resp 18 12/08/17 11:35 BP 106/62 12/08/17 11:35 Pulse Ox 99 12/08/17 11:35 Intake & Output 12/07/17 12/08/17 12/08/17 18:59 06:59 18:59 Intake Total 146 240 Balance 146 240 Weight 79.605 kg Intake: Intake, IV Titration 96 Amount Heparin Sod,Pork in 0.45% 36 NaCl 25,000 unit In 0.45 % NaCl 1 500ml.bag @ 12 UNITS/KG/HR 19.1 mls/hr IV .Q24H [facility] Rx#: [id number] Sodium Chloride 0.9% 1, 60 000 ml @ 20 mls/hr IV . Q24H [facility] Rx#:[id number] Oral 50 240 Other: Voiding Method Diaper Bedside Commode Incontinent Diaper Incontinent # Voids 3 2 # Bowel Movements 1 - Exam PHYSICAL EXAMINATION: HEENT: Head is atraumatic, normocephalic. Pupils equal, round. Neck is supple. There is no elevated jugular venous pressure. HEART EXAMINATION: Heart S1 and S2 systolic murmur is heard. CHEST EXAMINATION: lungs are clear with mild diminished air entry to the bases. ABDOMEN: Soft, nontender. Bowel sounds are heard. No organomegaly noted. EXTREMITIES: 2+ peripheral pulses with trace evidence of peripheral edema and no calf tenderness noted. NEUROLOGIC patient is awake, alert and oriented -3. . - Labs CBC & Chem 7: 12/08/17 05:37 12/08/17 05:37 Labs: Abnormal Lab Results - Last 24 Hours (Table) 12/07/17 12/07/17 12/08/17 Range/Units 16:51 20:58 00:56 RBC (3.80-5.40) m/uL Hgb (11.4-16.0) gm/dL MCHC (31.0-37.0) g/dL RDW (11.5-15.5) % Plt Count (150-450) k/uL PT (9.0-12.0) sec INR (<1.2) APTT (22.0-30.0) sec BUN (7-17) mg/dL Creatinine (0.52-1.04) mg/dL Glucose (74-99) mg/dL POC Glucose (mg/dL) 68 L 105 H (75-99) mg/dL AST (14-36) U/L Alkaline Phosphatase (38-126) U/L CK-MB (CK-2) 8.5 H* (0.0-2.4) ng/mL Troponin I 6.480 H* (0.000-0.034) ng/mL Total Protein (6.3-8.2) g/dL Albumin (3.5-5.0) g/dL 12/08/17 12/08/17 12/08/17 Range/Units 00:56 00:56 00:56 RBC 3.58 L (3.80-5.40) m/uL Hgb 10.8 L (11.4-16.0) gm/dL MCHC 30.7 L (31.0-37.0) g/dL RDW 15.7 H (11.5-15.5) % Plt Count 127 L (150-450) k/uL PT 12.4 H (9.0-12.0) sec INR 1.3 H (<1.2) APTT (22.0-30.0) sec BUN 53 H (7-17) mg/dL Creatinine 1.20 H (0.52-1.04) mg/dL Glucose (74-99) mg/dL POC Glucose (mg/dL) (75-99) mg/dL AST (14-36) U/L Alkaline Phosphatase (38-126) U/L CK-MB (CK-2) (0.0-2.4) ng/mL Troponin I (0.000-0.034) ng/mL Total Protein (6.3-8.2) g/dL Albumin (3.5-5.0) g/dL 12/08/17 12/08/17 12/08/17 Range/Units 05:37 05:37 06:01 RBC 3.61 L (3.80-5.40) m/uL Hgb 10.7 L (11.4-16.0) gm/dL MCHC 30.5 L (31.0-37.0) g/dL RDW 15.7 H (11.5-15.5) % Plt Count 140 L (150-450) k/uL PT (9.0-12.0) sec INR (<1.2) APTT (22.0-30.0) sec BUN 53 H (7-17) mg/dL Creatinine 1.20 H (0.52-1.04) mg/dL Glucose 58 L (74-99) mg/dL POC Glucose (mg/dL) 71 L (75-99) mg/dL AST 71 H (14-36) U/L Alkaline Phosphatase 191 H (38-126) U/L CK-MB (CK-2) (0.0-2.4) ng/mL Troponin I (0.000-0.034) ng/mL Total Protein 5.7 L (6.3-8.2) g/dL Albumin 3.2 L (3.5-5.0) g/dL 12/08/17 Range/Units 10:26 RBC (3.80-5.40) m/uL Hgb (11.4-16.0) gm/dL MCHC (31.0-37.0) g/dL RDW (11.5-15.5) % Plt Count (150-450) k/uL PT (9.0-12.0) sec INR (<1.2) APTT 88.7 H (22.0-30.0) sec BUN (7-17) mg/dL Creatinine (0.52-1.04) mg/dL Glucose (74-99) mg/dL POC Glucose (mg/dL) (75-99) mg/dL AST (14-36) U/L Alkaline Phosphatase (38-126) U/L CK-MB (CK-2) (0.0-2.4) ng/mL Troponin I (0.000-0.034) ng/mL Total Protein (6.3-8.2) g/dL Albumin (3.5-5.0) g/dL Microbiology - Last 24 Hours (Table) 12/02/17 01:00 Blood Culture - Final Blood No Growth after 144 hours Assessment and Plan Plan: ASSESSMENT 1. Acute on chronic systolic heart failure. Last echo done 09/2017 reveals EF 20- 25%. Elevated proBNP on admission. 2. Hyperkalemia. 3. Hypermagnesemia 4. Paroxysmal atrial fibrillation not on long-term anticoagulation. Currently maintaining sinus mechanism. 5. History of coronary artery disease status post bypass grafting. 6. Ischemic cardiomyopathy status post AICD placement 7. Diabetes mellitus 8. Dyslipidemia 9. Hypertension 10. Chronic kidney disease Plan Patient had an episode of weakness last evening for which a troponin was drawn, came back to be 6.4. She denies having any chest discomfort, and her breathing overall has been stable. We'll we will add a small dose of statin to her medication regime, continue baby aspirin, metoprolol 25 mg one tablet by mouth twice a day, and Entresto. DNP note has been reviewed, I agree with a documented findings and plan of care. Patient was seen and examined.
--- NOTE | 2017-12-08 15:10 | PN ---
PROGRESS NOTE Patient is seen for followup for acute kidney injury. She is currently comfortable. Denies any complaints. However, patient appears slightly weak. Blood pressure was 123/71, heart rate 89 per minute, patient is afebrile. Examination of the heart, S1, S2. Examination of the lungs, bilateral breath sounds are heard. Decreased breath sounds at bases. Abdomen is soft, nontender. Examination of the lower extremity shows chronic skin changes. Legs are currently wrapped. Edema 1+ noted bilaterally. LABS: Show sodium 141, potassium 3.8, BUN 53, serum creatinine of 1.2 mg/dL. Hemoglobin 10.7 g/dL. ASSESSMENT: 1. Acute kidney injury secondary to hypotension hypoperfusion, currently significantly improved. 2. Cardiac arrhythmia. Patient has been transferred to the 6th floor. Cardiology is consulted. 3. Chronic right leg venous ulcer being followed by Infectious Disease and maintained on local wound care. 4. Hyperkalemia, on initial admission, currently improved. Low dose Entresto has been restarted. Will continue to monitor labs closely. I will also increase her diuretics which will help with the hyperkalemia. 5. Cardiomyopathy, ejection fraction 20% to 25%. 6. Hypotension, chronic, currently maintained on midodrine. PLAN: Continue Lasix at twice a day dosing. Monitor labs. May continue with the midodrine as well as the Entresto. Encourage increased oral intake. MMODL / IJN: [id number] /
[2017-12-08 15:29] LABS: Glucose,Whole Blood 59 mg/dL (75-99)
[2017-12-08] MEDS: COLLAGENASE 250 UNIT/GM OINTMENT 30 GM TUBE TOPICAL SCH (15:43)
[2017-12-08 16:02] LABS: Glucose,Whole Blood 55 mg/dL (75-99)
[2017-12-08 16:13] LABS: Glucose,Whole Blood 59 mg/dL (75-99)
[2017-12-08] MEDS ORDERED: DEXTROSE 50%-WATER 50 ML SYRINGE IVP ONE (16:13)
[2017-12-08 16:46] LABS: Glucose,Whole Blood 117 mg/dL (75-99)
[2017-12-08] MEDS: POLYETHYLENE GLYCOL 3350 17 GM POWD.PACK PO SCH (18:15)
[2017-12-08] MEDS: CHOLECALCIFEROL 1,000 UNIT TAB PO SCH (18:24)
[2017-12-08] MEDS: LEVOTHYROXINE 25 MCG TAB PO SCH (18:24)
[2017-12-08 18:47] LABS: Glucose,Whole Blood 158 mg/dL (75-99)
[2017-12-08 20:56] LABS: Glucose,Whole Blood 195 mg/dL (75-99)
[2017-12-08] MEDS: PREGABALIN 50 MG CAP PO SCH (21:09)
[2017-12-08] MEDS: traZODone HCL 50 MG TAB PO SCH (21:10)
[2017-12-08] MEDS: PANTOPRAZOLE 40 MG TABLET PO SCH (21:10)
[2017-12-08] MEDS: ATORVASTATIN 20 MG TAB PO SCH (21:10)
--- NOTE | 2017-12-08 21:37 | PN ---
PROGRESS NOTE DATE OF SERVICE: 12/08/2017. REASON FOR FOLLOWUP: 1. Fever on admission. 2. Right leg wound. INTERVAL HISTORY: The patient is afebrile. She is breathing comfortably. Denies significant chest pain. No cough. No abdominal pain. No nausea, vomiting and no pain in the right leg area. EXAMINATION: Blood pressure is 109/60 with a pulse of 52, temperature of 97.9. She is 99% on 2 L nasal cannula. General description is an elderly female lying in bed in no distress. Respiratory system unlabored breathing. Clear to auscultation anteriorly, heart S1, S2. Regular rate and rhythm. Abdomen soft. No tenderness. Right leg is currently dressed up. No obvious drainage on the dressing. LABS: Hemoglobin is 10.7, white count 9.8. BUN is 53, creatinine 1.20. DIAGNOSTIC IMPRESSION/PLAN: 1. Patient admitted to the hospital with low-grade fever with concern for possible early pneumonia. No other clinical focus of infection. Fever has resolved on Rocephin. Plan is to continue for 7 days ago and discharge. 2. Patient with right leg wound. Local wound care to continue with Santyl followed by moist dressing. 3. Positive blood culture, likely skin contamination. Repeat blood culture negative. No need for further workup for the same. Family present at bedside. Their questions were answered. MMODL / IJN: [id number] /
[2017-12-09 02:40] LABS: Glucose,Whole Blood 163 mg/dL (75-99)
[2017-12-09] MEDS: MIDODRINE 5 MG TAB PO SCH ×2 (06:38→17:42)
[2017-12-09] MEDS: INSULIN ASPART 100 UNIT/ML 1 ML 10 ML VIAL SQ SCH ×4 (06:38→21:07)
[2017-12-09 06:45] LABS: Basophils % (A) 0 %; Eosinophils # (A) 0.2 k/uL (0-0.7); Eosinophils % (A) 2 %; HCT 34.3 % (34.0-46.0); Hypochromasia Slight; Lymphocytes # (A) 1.1 k/uL (1.0-4.8); Lymphocytes % (A) 14 %; MCH 30.8 pg (25.0-35.0); MCHC 31.9 g/dL (31.0-37.0); MCV 96.4 fL (80.0-100.0); Mean Platelet Volume 7.9; Monocytes # (A) 0.4 k/uL (0-1.0); Monocytes % (A) 5 %; Neutrophils # (A) 6.1 k/uL (1.3-7.7); Neutrophils % (A) 78 %; Platelet Count 136 k/uL (150-450); RBC 3.56 m/uL (3.80-5.40); RDW 15.7 % (11.5-15.5); WBC 7.9 k/uL (3.8-10.6)
[2017-12-09 06:49] LABS: Glucose,Whole Blood 152 mg/dL (75-99)
[2017-12-09 06:51] LABS: Albumin 3.2 g/dL (3.5-5.0); Calcium 9.5 mg/dL (8.4-10.2); Potassium 4.2 mmol/L (3.5-5.1); Total Bilirubin 0.6 mg/dL (0.2-1.3); Total Protein 5.7 g/dL (6.3-8.2)
[2017-12-09] MEDS: INSULN ASP PRT/INSULIN ASPART 100 UNIT/ML 10 ML VIAL SQ SCH ×4 (09:51→21:07)
[2017-12-09] MEDS: DOCUSATE 100 MG CAP PO SCH ×2 (09:52→17:39)
[2017-12-09] MEDS: METOPROLOL TARTRATE 25 MG TAB PO SCH ×2 (09:52→21:16)
[2017-12-09] MEDS: ALLOPURINOL 300 MG TAB PO SCH (09:52)
[2017-12-09] MEDS: FUROSEMIDE 40 MG TAB PO SCH (09:52)
[2017-12-09] MEDS: NYSTATIN 100,000 UNIT/ML SUSP 500,000 UNIT/5 ML CUP PO SCH ×4 (09:53→21:16)
[2017-12-09] MEDS: ASPIRIN 81 MG PO SCH (09:53)
[2017-12-09] MEDS: cefTRIAXone IN SWFI 1,000 MG/10 ML SYRINGE IVP SCH (09:53)
[2017-12-09] MEDS: SACUBITRIL/VALSARTAN 24 MG-26 MG TABLET PO SCH ×2 (09:53→21:16)
[2017-12-09] MEDS ORDERED: LACTULOSE 20 GM/30 ML CUP PO ONE (10:45)
[2017-12-09] MEDS: COLLAGENASE 250 UNIT/GM OINTMENT 30 GM TUBE TOPICAL SCH (12:11)
[2017-12-09 12:13] LABS: Glucose,Whole Blood 157 mg/dL (75-99)
--- NOTE | 2017-12-09 13:25 | PN ---
PROGRESS NOTE Patient is seen for followup for acute kidney injury. Her renal function has improved significantly. Etiology was hypotension hypoperfusion. The patient also has lower extremity cellulitis and had CHF and volume overload initially. Lasix is increased to 40 mg b.i.d. and she seems to be tolerating it fairly well. Serum creatinine has been staying at about 1.2 mg/dL for the last 3 days. Previous creatinine has been as low as 1.19 and 0.96 on October 2018. PHYSICAL EXAMINATION: On examination today, patient is comfortable. She denies any significant complaints. Blood pressure is 112/55, heart rate 62 per minute. Patient is afebrile. EXAMINATION OF THE HEART: S1, S2. EXAMINATION OF THE LUNGS: Bilateral breath sounds are heard. Abdomen is soft, obese, nontender. Examination of the lower extremities shows bilateral lower extremities to be wrapped. FARM CONSULTANT exam is grossly intact. LABS: Labs show sodium 140, potassium 4.2, chloride 100, BUN 51, serum creatinine 1.2. Hemoglobin 11.0 g/dL. ASSESSMENT: 1. Acute kidney injury secondary to hypotension hypoperfusion currently improved. May continue with current dose of Lasix. 2. Lower extremity cellulitis with chronic right leg venous ulcer, maintained on local wound care and being followed by ID. 3. Hyperkalemia on initial admission, currently improved. Patient is maintained on small dose of Entresto, she seems to be tolerating it. 4. Cardiomyopathy, ejection fraction 20% to 25%. 5. Acute exacerbation of congestive heart failure, systolic, acute on top of chronic. 6. Chronic hypotension, maintained on midodrine. PLAN: Continue current dose of Lasix. Repeat labs and monitor labs periodically given the fact that the patient is chronically hypotensive and maintained on Entresto. MMODL / IJN: [id number] /
--- NOTE | 2017-12-09 13:48 | P.PN ---
Subjective Progress Note Date: 12/09/17 This is a 77 -year-old female with a known past medical history of atrial fibrillation, congestive heart failure, diabetes mellitus, hypertension, myocardial infarction, CABG with cardiac stents, chronic kidney disease and hypothyroidism. She also has a chronic right leg wound in which she follows with Dr. Mejias in the wound care clinic. Patient is currently been at [facility] for rehabilitation. Her daughter patient has been very confused having hallucinations and not been herself. On admission her glucose was 447, she had a temp of 100.8 white count elevated at 15. Potassium elevated at 6. BNP elevated at 13,800. Urinalysis was negative influenza screen negative. Chest x-ray showed poor inspiration no evidence of an infection. EKG first-degree AV block with PACs. Patient received Kayexalate in the emergency room. Awaiting repeat potassium level. Patient reports having diarrhea off and on for the last 3 weeks. But it usually just one episode for that day and then a few days with a regular bowel movements. She denies any nausea or vomiting. Denies any chest pain. Occasional shortness of breath. She was started on IV Lasix for possible CHF exacerbation. Her insulin has been restarted. Patient reports taking her insulin at [address] [place]. She denies any burning with urination. Denies any sore throat earache runny nose or congestion. Infectious disease, psychiatry and cardiology of been consulted. Infectious disease has placed patient on Rocephin and Flagyl for possible abdominal source. 12/02/2017 patient sleeping comfortably this morning when evaluated. She is arousable and able to answer questions. Poor appetite this morning. Reports that her legs are hurting. Her insulin was held this morning for blood sugar 101. Patient denies any chest pain or shortness of breath. Denies any nausea or vomiting. Did have a bowel movement after the Kayexalate. Potassium is coming down from 6-4.6. Denies any burning with urination. White count has come up from 13.1-14.7. Computed tomography scan of the brain with cerebral atrophy with central cerebral atrophy and secondary mild ventriculomegaly. Mild changes of chronic small vessel ischemic changes. No acute intracranial abnormality. Computed tomography scan of the abdomen showing cardiomegaly. Right pleural effusion. Mild atelectasis at the right lung base. Pleural fluid increased compared to old exam. There is improved aeration of lung bases compared to old exam. There is no ascites fluid in the abdomen.. Could correlate to chronic congestive heart failure. Calcified urine fibroids. Stable small right he will hernia that contains fat. Stable varicose veins in the suprapubic region that raises the possibility of pelvic venous obstruction. Patient is on IV Lasix. Still reporting some shortness of breath. Denies any chest pain. Denies any nausea or vomiting. 12/05/2017 patient is sitting up in bedside chair comfortably. Reports improvement in her breathing. She is still having difficulty with swallowing. On antibiotics for possible pneumonia. Denies cough. Kidney functions are showing improvement over the weekend. Creatinine is down to 1.56. Patient denies any chest pain nausea or vomiting. Reports having bowel movements. Denies any burning with urination. 12/06/2017 patient sitting up in bedside chair. Underwent esophagram today showing no mass or stricture underlying esophageal dysmotility is present. Chest x-ray from yesterday shows no pneumonia. She is having regular bowel movements. Denies any chest pain or shortness of breath. Creatinine is improving down to 1.15 12/08/2017 patient was transferred to the sixth floor last night for cardiac arrhythmia. Cardiology was consulted. Patient denies any chest pain. She just reports not feeling right and felt that her heart was racing. Denies any nausea or vomiting. Denies any bowel movement changes. Daughter is concerned that patient may not been urinating enough during the day. Patient is incontinent of urine. Nursing staff notified and will monitor closely. And will check a post void residual. Voiding record from yesterday reveals 3 diapers with urine. And has already urinated twice this morning. Patient complains of sore tongue 12/09/2017 patient had episodes of hypoglycemia yesterday. Reports that she is not eating as much as she usually does. Insulin has been adjusted. Patient also having some hypotension through the evening. She had just recently been restarted on her entresto and Lasix 40 twice a day. She had a BP of 89/45 to the evening. Repeat blood pressure is 112/55. Blood pressure pills held this morning. Creatinine remains at 1.20. Lasix will be decreased to 40 mg by mouth daily. Denies any chest pain or shortness of breath. Denies any nausea or vomiting. Complaining of constipation. Denies any burning with urination Objective - Vital Signs Vital signs: Vital Signs Temp 95.8 F L 12/09/17 08:00 Pulse 62 12/09/17 08:00 Resp 12 12/09/17 08:00 BP 112/55 12/09/17 08:00 Pulse Ox 100 12/09/17 04:00 Intake & Output 12/08/17 12/09/17 12/09/17 18:59 06:59 18:59 Intake Total 720 120 Balance 720 120 Intake: Oral 720 120 Other: Voiding Method Bedside Commode Diaper Diaper Diaper Incontinent Incontinent Incontinent # Voids 3 1 - Exam Head normocephalic Neck supple Lungs crackles in the right lower base Heart regular rate and rhythm S1-S2, no rub or gallop Abdomen is soft nontender nondistended positive bowel sounds no hepatosplenomegaly Extremities Chronic leg wound on the right leg no evidence of acute infection. +1 edema bilaterally Neuro alert and orientated to 3 - Labs CBC & Chem 7: 12/09/17 05:51 12/09/17 05:51 Labs: Abnormal Lab Results - Last 24 Hours (Table) 12/08/17 12/08/17 12/08/17 Range/Units 10:26 15:21 15:50 RBC (3.80-5.40) m/uL Hgb (11.4-16.0) gm/dL RDW (11.5-15.5) % Plt Count (150-450) k/uL APTT 88.7 H (22.0-30.0) sec BUN (7-17) mg/dL Creatinine (0.52-1.04) mg/dL Glucose (74-99) mg/dL POC Glucose (mg/dL) 59 L 55 L (75-99) mg/dL AST (14-36) U/L Alkaline Phosphatase (38-126) U/L Total Protein (6.3-8.2) g/dL Albumin (3.5-5.0) g/dL 12/08/17 12/08/17 12/08/17 Range/Units 16:11 16:40 18:45 RBC (3.80-5.40) m/uL Hgb (11.4-16.0) gm/dL RDW (11.5-15.5) % Plt Count (150-450) k/uL APTT (22.0-30.0) sec BUN (7-17) mg/dL Creatinine (0.52-1.04) mg/dL Glucose (74-99) mg/dL POC Glucose (mg/dL) 59 L 117 H 158 H (75-99) mg/dL AST (14-36) U/L Alkaline Phosphatase (38-126) U/L Total Protein (6.3-8.2) g/dL Albumin (3.5-5.0) g/dL 12/08/17 12/09/17 12/09/17 Range/Units 20:54 02:27 05:51 RBC 3.56 L (3.80-5.40) m/uL Hgb 11.0 L (11.4-16.0) gm/dL RDW 15.7 H (11.5-15.5) % Plt Count 136 L (150-450) k/uL APTT (22.0-30.0) sec BUN (7-17) mg/dL Creatinine (0.52-1.04) mg/dL Glucose (74-99) mg/dL POC Glucose (mg/dL) 195 H 163 H (75-99) mg/dL AST (14-36) U/L Alkaline Phosphatase (38-126) U/L Total Protein (6.3-8.2) g/dL Albumin (3.5-5.0) g/dL 12/09/17 12/09/17 Range/Units 05:51 06:26 RBC (3.80-5.40) m/uL Hgb (11.4-16.0) gm/dL RDW (11.5-15.5) % Plt Count (150-450) k/uL APTT (22.0-30.0) sec BUN 51 H (7-17) mg/dL Creatinine 1.20 H (0.52-1.04) mg/dL Glucose 142 H (74-99) mg/dL POC Glucose (mg/dL) 152 H (75-99) mg/dL AST 53 H (14-36) U/L Alkaline Phosphatase 179 H (38-126) U/L Total Protein 5.7 L (6.3-8.2) g/dL Albumin 3.2 L (3.5-5.0) g/dL Assessment and Plan Assessment: 1. Altered mental status changes: Possibly a metabolic encephalopathy secondary to infection, congestive heart failure or hyperglycemia. Computed tomography scan of the brain shows no acute intracranial abnormality. 2. Bacteremia with blood culture growing staph epidermidis. This is a contamination. Vanco mycin discontinued. Bacteremia ruled out 3. Acute on chronic systolic congestive heart failure with an EF of 20-25% that was noted on echo in September 2017. Patient had elevated BNP on admission. IV Lasix discontinued switched over to oral Lasix 4. Hallucinations and delirium evaluated by psychiatry. Medications adjusted. Hallucinations seem to be improving 5. Hyperkalemia: Aldactone and Entresto discontinued on admission. Potassium level has normalized. Entresto resumed yesterday. Aldactone remains on hold 6. Insulin-dependent diabetes mellitus with elevated blood sugar of 447 on admission. Patient had hypoglycemia yesterday. Insulin has been adjusted to NovoLog 70/30 with 20 units daily and 5 units at bedtime 7. History of ischemic cardiomyopathy status post AICD 8. Acute on Chronic kidney disease, stage III. Acute kidney injury secondary to hypotension. Has been seen by nephrology. Kidney functions are improving. Creatinine up to 1.20. 9. History of coronary artery disease with prior bypass surgery and cardiac Stents 10. Paroxysmal atrial fibrillation: Not on anticoagulation due to frequent falls 11. Chronic right leg venous stasis ulcer: Followed at wound care center by Dr. Mejias. No evidence of cellulitis. Continue local wound care. Infectious disease following 12. Dysphagia seen by GI service. Patient underwent esophagram showing no stricture or mass. Did reveal an underlying esophageal dysmotility present. 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 GI service started diet 13. Possibility of a pelvic venous obstruction noted on CAT scan of the abdomen. Patient evaluated by Dr. Vang. And she will follow-up with him in the outpatient setting for further workup 14. Palate soft tissue mass considered benign evaluated by ENT service. 15. Elevated troponin at 6.4. Possible mild non-ST elevated [place]. Cardiology evaluated patient and added statin. Continue baby aspirin 16. Oral candidiasis on nystatin swish and swallow 17. Constipation give a dose of lactulose 18. Possible mixed bacterial pneumonia: On Rocephin. Followed by infectious disease 19. Hypotension: Decrease Lasix to 40 mg daily. Continue to monitor blood pressures closely. 20. Depression will add Lexapro 10 mg daily GI prophylaxis Protonix and DVT prophylaxis subcu heparin I performed an examination of the patient and discussed their management with the physician [employer]. I have reviewed the Physician [employer]'s notes and agree with the documented findings and plan of care
--- NOTE | 2017-12-09 14:30 | P.PN ---
Subjective Progress Note Date: 12/09/17 This is a pleasant 77-year-old female patient who follows with Dr. Wall in the office. Has a history of coronary artery disease with prior bypass surgery, paroxysmal atrial fibrillation, not on long-term anticoagulation , systolic congestive heart failure with prior AICD, hypertension, diabetes, hyperlipidemia, ischemic cardiomyopathy, chronic renal insufficiency. Initially presented with symptoms of congestive heart failure and was diuresed on IV Lasix. We had signed off before asked to see the patient again due to symptoms of significant weakness and elevated troponin of 6.4. Patient had no complaints of chest discomfort and her breathing has overall been stable. Vital signs are stable and she says she is feeling quite a bit better compared to yesterday, energy and strength have improved. Objective - Vital Signs Vital signs: Vital Signs Temp 95.8 F L 12/09/17 08:00 Pulse 62 12/09/17 12:00 Resp 16 12/09/17 12:00 BP 103/63 12/09/17 12:00 Pulse Ox 94 L 12/09/17 12:00 Intake & Output 12/08/17 12/09/17 12/09/17 18:59 06:59 18:59 Intake Total 720 120 Balance 720 120 Intake: Oral 720 120 Other: Voiding Method Bedside Commode Diaper Diaper Diaper Incontinent Incontinent Incontinent # Voids 3 1 - Exam PHYSICAL EXAMINATION: HEENT: Head is atraumatic, normocephalic. Pupils equal, round. Neck is supple. There is no elevated jugular venous pressure. HEART EXAMINATION: Heart sounds regular, S1 and S2 with a systolic murmur. CHEST EXAMINATION: Lungs reveal diminished air entry bilaterally with faint crackles bilateral bases. No chest wall tenderness is noted on palpation or with deep breathing. ABDOMEN: Soft, nontender. Bowel sounds are heard. No organomegaly noted. EXTREMITIES: Diminished peripheral pulses with evidence of peripheral edema and no calf tenderness noted, Moe wrap to right lower leg. NEUROLOGIC patient is awake, alert and oriented x3. . - Labs CBC & Chem 7: 12/09/17 05:51 12/09/17 05:51 Labs: Abnormal Lab Results - Last 24 Hours (Table) 12/08/17 12/08/17 12/08/17 Range/Units 15:21 15:50 16:11 RBC (3.80-5.40) m/uL Hgb (11.4-16.0) gm/dL RDW (11.5-15.5) % Plt Count (150-450) k/uL BUN (7-17) mg/dL Creatinine (0.52-1.04) mg/dL Glucose (74-99) mg/dL POC Glucose (mg/dL) 59 L 55 L 59 L (75-99) mg/dL AST (14-36) U/L Alkaline Phosphatase (38-126) U/L Total Protein (6.3-8.2) g/dL Albumin (3.5-5.0) g/dL 12/08/17 12/08/17 12/08/17 Range/Units 16:40 18:45 20:54 RBC (3.80-5.40) m/uL Hgb (11.4-16.0) gm/dL RDW (11.5-15.5) % Plt Count (150-450) k/uL BUN (7-17) mg/dL Creatinine (0.52-1.04) mg/dL Glucose (74-99) mg/dL POC Glucose (mg/dL) 117 H 158 H 195 H (75-99) mg/dL AST (14-36) U/L Alkaline Phosphatase (38-126) U/L Total Protein (6.3-8.2) g/dL Albumin (3.5-5.0) g/dL 12/09/17 12/09/17 12/09/17 Range/Units 02:27 05:51 05:51 RBC 3.56 L (3.80-5.40) m/uL Hgb 11.0 L (11.4-16.0) gm/dL RDW 15.7 H (11.5-15.5) % Plt Count 136 L (150-450) k/uL BUN 51 H (7-17) mg/dL Creatinine 1.20 H (0.52-1.04) mg/dL Glucose 142 H (74-99) mg/dL POC Glucose (mg/dL) 163 H (75-99) mg/dL AST 53 H (14-36) U/L Alkaline Phosphatase 179 H (38-126) U/L Total Protein 5.7 L (6.3-8.2) g/dL Albumin 3.2 L (3.5-5.0) g/dL 12/09/17 12/09/17 Range/Units 06:26 12:11 RBC (3.80-5.40) m/uL Hgb (11.4-16.0) gm/dL RDW (11.5-15.5) % Plt Count (150-450) k/uL BUN (7-17) mg/dL Creatinine (0.52-1.04) mg/dL Glucose (74-99) mg/dL POC Glucose (mg/dL) 152 H 157 H (75-99) mg/dL AST (14-36) U/L Alkaline Phosphatase (38-126) U/L Total Protein (6.3-8.2) g/dL Albumin (3.5-5.0) g/dL Assessment and Plan Assessment: #1 acute on chronic systolic congestive heart failure #2 hyperkalemia #3 hypomagnesemia and #4 paroxysmal atrial fibrillation, not on anticoagulation , currently maintaining sinus rhythm #4 Non-STEMI with symptoms of extreme weakness with troponin elevation of 6.4 #5 chronic kidney disease #6 diabetes Plan: From cardiology's perspective, medications were reviewed we will continue the same. We will continue to follow the patient provide further recommendations accordingly. The above dictated assessment and findings were discussed with signing physician. The impression and plan of care have been directed as dictated. Rebeka Fitzpatrick, Nurse Practitioner, acting as scribe for signing physician.
[2017-12-09] MEDS: ESCITALOPRAM 10 MG TAB PO SCH (16:05)
[2017-12-09] MEDS: POLYETHYLENE GLYCOL 3350 17 GM POWD.PACK PO SCH (16:06)
[2017-12-09 16:51] LABS: Glucose,Whole Blood 197 mg/dL (75-99)
[2017-12-09] MEDS: FERROUS SULFATE 325 MG TAB PO SCH (17:42)
[2017-12-09] MEDS: CHOLECALCIFEROL 1,000 UNIT TAB PO SCH (17:42)
[2017-12-09] MEDS: LEVOTHYROXINE 25 MCG TAB PO SCH (17:42)
[2017-12-09 21:15] LABS: Glucose,Whole Blood 149 mg/dL (75-99)
[2017-12-09] MEDS: PANTOPRAZOLE 40 MG TABLET PO SCH (21:16)
[2017-12-09] MEDS: traZODone HCL 50 MG TAB PO SCH (21:16)
[2017-12-09] MEDS: ATORVASTATIN 20 MG TAB PO SCH (21:16)
[2017-12-09] MEDS: PREGABALIN 50 MG CAP PO SCH (21:16)
--- NOTE | 2017-12-09 22:08 | PN ---
PROGRESS NOTE DATE OF SERVICE: 12/09/2017 REASON FOR FOLLOWUP: 1. Low-grade fever on admission with question of early pneumonia. 2. Right leg wound. INTERVAL HISTORY: The patient is afebrile. She is breathing comfortably. Denies having any chest pain or shortness of breath or cough. No abdominal pain or any pain in the right leg wound area. PHYSICAL EXAMINATION: Blood pressure 115/59 with a pulse of 60, temperature of 98. She is 99% on room air. General description is an elderly female up in the chair in no distress. RESPIRATORY SYSTEM: Unlabored breathing. Clear to auscultation anteriorly. HEART: S1, S2. Regular rate and rhythm. ABDOMEN: Soft. No tenderness. Her right leg wound is currently dressed up. No obvious drainage on the dressing. LABS: Hemoglobin is 11 with a white count of 7.9, BUN of 51, creatinine 1.20. DIAGNOSTIC IMPRESSION AND PLAN: 1. Patient on admission to hospital did have a low-grade fever, some mental status change with a question of possible early pneumonia. She is currently on Rocephin with overall resolution of the fever. Recommend to discontinue at time of discharge. 2. Right leg wound. Local wound care with Santyl followed by moist dressing. MMODL / IJN: [id number] /
[2017-12-10] MEDS: SODIUM CHLORIDE 0.9% 1,000 ML IV SCH (00:20)
[2017-12-10] MEDS: INSULIN ASPART 100 UNIT/ML 1 ML 10 ML VIAL SQ SCH ×4 (06:29→22:10)
[2017-12-10 06:30] LABS: Glucose,Whole Blood 119 mg/dL (75-99)
[2017-12-10] MEDS: MIDODRINE 5 MG TAB PO SCH ×2 (06:47→17:57)
[2017-12-10 06:56] LABS: Anisocytosis Slight; Basophils % (A) 0 %; Eosinophils # (A) 0.2 k/uL (0-0.7); Eosinophils % (A) 2 %; HCT 33.3 % (34.0-46.0); HGB 10.6 gm/dL (11.4-16.0); Lymphocytes # (A) 1.1 k/uL (1.0-4.8); Lymphocytes % (A) 14 %; MCH 30.8 pg (25.0-35.0); MCHC 31.8 g/dL (31.0-37.0); MCV 96.6 fL (80.0-100.0); Mean Platelet Volume 7.9; Monocytes # (A) 0.3 k/uL (0-1.0); Monocytes % (A) 4 %; Neutrophils % (A) 78 %; Platelet Count 139 k/uL (150-450); RBC 3.45 m/uL (3.80-5.40); RDW 16.2 % (11.5-15.5); WBC 7.7 k/uL (3.8-10.6)
[2017-12-10 07:14] LABS: Calcium 9.1 mg/dL (8.4-10.2); Potassium 3.8 mmol/L (3.5-5.1); Total Bilirubin 0.6 mg/dL (0.2-1.3); Total Protein 5.4 g/dL (6.3-8.2)
[2017-12-10] MEDS: ALLOPURINOL 300 MG TAB PO SCH (08:35)
[2017-12-10] MEDS: DOCUSATE 100 MG CAP PO SCH ×2 (08:35→17:58)
[2017-12-10] MEDS: ASPIRIN 81 MG PO SCH (08:35)
[2017-12-10] MEDS: METOPROLOL TARTRATE 25 MG TAB PO SCH ×2 (08:36→22:09)
[2017-12-10] MEDS: FUROSEMIDE 40 MG TAB PO SCH (08:36)
[2017-12-10] MEDS: ESCITALOPRAM 10 MG TAB PO SCH (08:36)
[2017-12-10] MEDS: SACUBITRIL/VALSARTAN 24 MG-26 MG TABLET PO SCH ×2 (08:37→22:09)
[2017-12-10] MEDS: NYSTATIN 100,000 UNIT/ML SUSP 500,000 UNIT/5 ML CUP PO SCH ×4 (08:37→22:10)
[2017-12-10] MEDS: INSULN ASP PRT/INSULIN ASPART 100 UNIT/ML 10 ML VIAL SQ SCH ×2 (08:41→22:08)
[2017-12-10] MEDS: cefTRIAXone IN SWFI 1,000 MG/10 ML SYRINGE IVP SCH (08:41)
--- NOTE | 2017-12-10 09:15 | P.PN ---
Subjective Patient is seen in follow-up for acute kidney injury. Creatinine is down to 1.07 today. She is currently maintained on Lasix 40 mg orally once daily. Denies any chest pain or shortness of breath. Oral intake is fair. Admits to good urine output. She does have history of systolic CHF with ejection fraction of 20-25%. Vital signs are stable. General: The patient appeared well nourished and normally developed. HEENT: Head exam is unremarkable. Neck is without jugular venous distension. LUNGS: Lungs are clear to auscultation and percussion. Breath sounds decreased. HEART: Rate and Rhythm are regular. First and second heart sounds normal. No murmurs, rubs or gallops. ABDOMEN: Abdominal exam reveals normal bowel sounds. Non-tender and non- distended. No evidence of peritonitis. EXTREMITITES: Trace edema. Wrapped. No obvious drainage noted. Objective - Vital Signs Vital signs: Vital Signs Temp 98.1 F 12/10/17 04:00 Pulse 60 12/10/17 04:00 Resp 16 12/10/17 04:00 BP 104/59 12/10/17 04:00 Pulse Ox 100 12/10/17 04:00 Intake & Output 12/09/17 12/10/17 12/10/17 18:59 06:59 18:59 Intake Total 200 140 480 Balance 200 140 480 Weight 79.605 kg 78.5 kg Intake: IV 10 Invasive Line 4 10 Intake, IV Titration 10 Amount Sodium Chloride 0.9% 1, 10 000 ml @ 20 mls/hr IV . Q24H [facility] Rx#:[id number] Oral 200 120 480 Other: Voiding Method Diaper Diaper Incontinent Incontinent # Voids 1 2 # Bowel Movements 1 - Labs CBC & Chem 7: 12/10/17 05:38 12/10/17 05:38 Labs: Abnormal Lab Results - Last 24 Hours (Table) 12/09/17 12/09/17 12/09/17 Range/Units 12:11 16:49 21:04 RBC (3.80-5.40) m/uL Hgb (11.4-16.0) gm/dL Hct (34.0-46.0) % RDW (11.5-15.5) % Plt Count (150-450) k/uL BUN (7-17) mg/dL Creatinine (0.52-1.04) mg/dL Glucose (74-99) mg/dL POC Glucose (mg/dL) 157 H 197 H 149 H (75-99) mg/dL AST (14-36) U/L Alkaline Phosphatase (38-126) U/L Total Protein (6.3-8.2) g/dL Albumin (3.5-5.0) g/dL 12/10/17 12/10/17 12/10/17 Range/Units 05:38 05:38 06:19 RBC 3.45 L (3.80-5.40) m/uL Hgb 10.6 L (11.4-16.0) gm/dL Hct 33.3 L (34.0-46.0) % RDW 16.2 H (11.5-15.5) % Plt Count 139 L (150-450) k/uL BUN 43 H (7-17) mg/dL Creatinine 1.07 H (0.52-1.04) mg/dL Glucose 108 H (74-99) mg/dL POC Glucose (mg/dL) 119 H (75-99) mg/dL AST 37 H (14-36) U/L Alkaline Phosphatase 179 H (38-126) U/L Total Protein 5.4 L (6.3-8.2) g/dL Albumin 3.0 L (3.5-5.0) g/dL Assessment and Plan Plan: Assessment: #1. Nonoliguric acute kidney injury secondary to ATN secondary to hypotension with component of cardiorenal syndrome. Creatinine down to 1.07 today. #2. Systolic CHF with ejection fraction of 20-25%. Currently compensated. #3. Volume overload. Improved. #4. Lower extremity cellulitis maintained on antibiotics. Infectious disease following. #5. Chronic hypotension maintained on midodrine. Plan: Continue Lasix 40 mg once daily. Encouraged oral intake. Avoid nephrotoxic agents and hypotensive episodes. Repeat electrolytes in the morning.
[2017-12-10 09:48] VITALS: RESP 18
[2017-12-10 12:12] LABS: Glucose,Whole Blood 147 mg/dL (75-99)
--- NOTE | 2017-12-10 13:52 | P.PN ---
Subjective Progress Note Date: 12/10/17 This is a pleasant 77-year-old female patient who follows with Dr. Wall in the office. Has a history of coronary artery disease with prior bypass surgery, paroxysmal atrial fibrillation, not on long-term anticoagulation , systolic congestive heart failure with prior AICD, hypertension, diabetes, hyperlipidemia, ischemic cardiomyopathy, chronic renal insufficiency. Initially presented with symptoms of congestive heart failure and was diuresed on IV Lasix. We had signed off before asked to see the patient again due to symptoms of significant weakness and elevated troponin of 6.4. Patient had no complaints of chest discomfort and her breathing has overall been stable. On examination today, patient is resting comfortably in bed. She denies complaints of chest discomfort she feels her breathing is stable. She's had no further complaints of significant weakness. Objective - Vital Signs Vital signs: Vital Signs Temp 97.2 F L 12/10/17 12:00 Pulse 63 12/10/17 12:00 Resp 18 12/10/17 12:00 BP 106/60 12/10/17 12:00 Pulse Ox 96 12/10/17 12:00 Intake & Output 12/09/17 12/10/17 12/10/17 18:59 06:59 18:59 Intake Total 200 140 480 Balance 200 140 480 Weight 79.605 kg 78.5 kg Intake: IV 10 Invasive Line 4 10 Intake, IV Titration 10 Amount Sodium Chloride 0.9% 1, 10 000 ml @ 20 mls/hr IV . Q24H [facility] Rx#:[id number] Oral 200 120 480 Other: Voiding Method Diaper Diaper Incontinent Incontinent # Voids 1 2 # Bowel Movements 1 - Exam PHYSICAL EXAMINATION: HEENT: Head is atraumatic, normocephalic. Pupils equal, round. Neck is supple. There is no elevated jugular venous pressure. HEART EXAMINATION: Heart sounds regular, S1 and S2 with a systolic murmur. CHEST EXAMINATION: Lungs reveal diminished air entry bilaterally with faint crackles bilateral bases. No chest wall tenderness is noted on palpation or with deep breathing. ABDOMEN: Soft, nontender. Bowel sounds are heard. No organomegaly noted. EXTREMITIES: Diminished peripheral pulses with evidence of peripheral edema and no calf tenderness noted, Moe wrap to right lower leg. NEUROLOGIC patient is awake, alert and oriented x3. . - Labs CBC & Chem 7: 12/10/17 05:38 12/10/17 05:38 Labs: Abnormal Lab Results - Last 24 Hours (Table) 12/09/17 12/09/17 12/10/17 Range/Units 16:49 21:04 05:38 RBC 3.45 L (3.80-5.40) m/uL Hgb 10.6 L (11.4-16.0) gm/dL Hct 33.3 L (34.0-46.0) % RDW 16.2 H (11.5-15.5) % Plt Count 139 L (150-450) k/uL BUN (7-17) mg/dL Creatinine (0.52-1.04) mg/dL Glucose (74-99) mg/dL POC Glucose (mg/dL) 197 H 149 H (75-99) mg/dL AST (14-36) U/L Alkaline Phosphatase (38-126) U/L Total Protein (6.3-8.2) g/dL Albumin (3.5-5.0) g/dL 12/10/17 12/10/17 12/10/17 Range/Units 05:38 06:19 12:05 RBC (3.80-5.40) m/uL Hgb (11.4-16.0) gm/dL Hct (34.0-46.0) % RDW (11.5-15.5) % Plt Count (150-450) k/uL BUN 43 H (7-17) mg/dL Creatinine 1.07 H (0.52-1.04) mg/dL Glucose 108 H (74-99) mg/dL POC Glucose (mg/dL) 119 H 147 H (75-99) mg/dL AST 37 H (14-36) U/L Alkaline Phosphatase 179 H (38-126) U/L Total Protein 5.4 L (6.3-8.2) g/dL Albumin 3.0 L (3.5-5.0) g/dL Assessment and Plan Assessment: #1 acute on chronic systolic congestive heart failure #2 hyperkalemia #3 hypomagnesemia and #4 paroxysmal atrial fibrillation, not on anticoagulation , currently maintaining sinus rhythm #4 Non-STEMI with symptoms of extreme weakness with troponin elevation of 6.4 #5 chronic kidney disease #6 diabetes Plan: From cardiology's perspective, medications were reviewed we will continue the same. At this time, we will follow the patient on an as-needed basis. Please do not hesitate to contact us with questions. The above dictated assessment and findings were discussed with signing physician. The impression and plan of care have been directed as dictated. Rebeka Fitzpatrick, Nurse Practitioner, acting as scribe for signing physician.
--- NOTE | 2017-12-10 14:49 | P.PN ---
Subjective Progress Note Date: 12/10/17 This is a 77 -year-old female with a known past medical history of atrial fibrillation, congestive heart failure, diabetes mellitus, hypertension, myocardial infarction, CABG with cardiac stents, chronic kidney disease and hypothyroidism. She also has a chronic right leg wound in which she follows with Dr. Mejias in the wound care clinic. Patient is currently been at [facility] for rehabilitation. Her daughter patient has been very confused having hallucinations and not been herself. On admission her glucose was 447, she had a temp of 100.8 white count elevated at 15. Potassium elevated at 6. BNP elevated at 13,800. Urinalysis was negative influenza screen negative. Chest x-ray showed poor inspiration no evidence of an infection. EKG first-degree AV block with PACs. Patient received Kayexalate in the emergency room. Awaiting repeat potassium level. Patient reports having diarrhea off and on for the last 3 weeks. But it usually just one episode for that day and then a few days with a regular bowel movements. She denies any nausea or vomiting. Denies any chest pain. Occasional shortness of breath. She was started on IV Lasix for possible CHF exacerbation. Her insulin has been restarted. Patient reports taking her insulin at [address] [place]. She denies any burning with urination. Denies any sore throat earache runny nose or congestion. Infectious disease, psychiatry and cardiology of been consulted. Infectious disease has placed patient on Rocephin and Flagyl for possible abdominal source. 12/02/2017 patient sleeping comfortably this morning when evaluated. She is arousable and able to answer questions. Poor appetite this morning. Reports that her legs are hurting. Her insulin was held this morning for blood sugar 101. Patient denies any chest pain or shortness of breath. Denies any nausea or vomiting. Did have a bowel movement after the Kayexalate. Potassium is coming down from 6-4.6. Denies any burning with urination. White count has come up from 13.1-14.7. Computed tomography scan of the brain with cerebral atrophy with central cerebral atrophy and secondary mild ventriculomegaly. Mild changes of chronic small vessel ischemic changes. No acute intracranial abnormality. Computed tomography scan of the abdomen showing cardiomegaly. Right pleural effusion. Mild atelectasis at the right lung base. Pleural fluid increased compared to old exam. There is improved aeration of lung bases compared to old exam. There is no ascites fluid in the abdomen.. Could correlate to chronic congestive heart failure. Calcified urine fibroids. Stable small right he will hernia that contains fat. Stable varicose veins in the suprapubic region that raises the possibility of pelvic venous obstruction. Patient is on IV Lasix. Still reporting some shortness of breath. Denies any chest pain. Denies any nausea or vomiting. 12/05/2017 patient is sitting up in bedside chair comfortably. Reports improvement in her breathing. She is still having difficulty with swallowing. On antibiotics for possible pneumonia. Denies cough. Kidney functions are showing improvement over the weekend. Creatinine is down to 1.56. Patient denies any chest pain nausea or vomiting. Reports having bowel movements. Denies any burning with urination. 12/06/2017 patient sitting up in bedside chair. Underwent esophagram today showing no mass or stricture underlying esophageal dysmotility is present. Chest x-ray from yesterday shows no pneumonia. She is having regular bowel movements. Denies any chest pain or shortness of breath. Creatinine is improving down to 1.15 On 12/07/2017 patient is alert somnolent in no apparent distress complaining of sore tongue complaining of drowsiness and fatigue she denies any chest pain or shortness of breath she has not been out of bed no nausea or vomiting no abdominal pain and no urinary symptoms. Potassium is down to normal level at 4.3 at this time will resume and Entresto at the lowest dose will continue to withhold Aldactone 12/08/2017 patient was transferred to the sixth floor last night for cardiac arrhythmia. Cardiology was consulted. Patient denies any chest pain. She just reports not feeling right and felt that her heart was racing. Denies any nausea or vomiting. Denies any bowel movement changes. Daughter is concerned that patient may not been urinating enough during the day. Patient is incontinent of urine. Nursing staff notified and will monitor closely. And will check a post void residual. Voiding record from yesterday reveals 3 diapers with urine. And has already urinated twice this morning. Patient complains of sore tongue 12/09/2017 patient had episodes of hypoglycemia yesterday. Reports that she is not eating as much as she usually does. Insulin has been adjusted. Patient also having some hypotension through the evening. She had just recently been restarted on her entresto and Lasix 40 twice a day. She had a BP of 89/45 to the evening. Repeat blood pressure is 112/55. Blood pressure pills held this morning. Creatinine remains at 1.20. Lasix will be decreased to 40 mg by mouth daily. Denies any chest pain or shortness of breath. Denies any nausea or vomiting. Complaining of constipation. Denies any burning with urination Objective - Vital Signs Vital signs: Vital Signs Temp 97.2 F L 12/10/17 12:00 Pulse 63 12/10/17 12:00 Resp 18 12/10/17 12:00 BP 106/60 12/10/17 12:00 Pulse Ox 96 12/10/17 12:00 Intake & Output 12/09/17 12/10/17 12/10/17 18:59 06:59 18:59 Intake Total 200 140 480 Balance 200 140 480 Weight 79.605 kg 78.5 kg Intake: IV 10 Invasive Line 4 10 Intake, IV Titration 10 Amount Sodium Chloride 0.9% 1, 10 000 ml @ 20 mls/hr IV . Q24H COUNTS INCLUDE 234 BEDS AT THE [facility] Rx#:[id number] Oral 200 120 480 Other: Voiding Method Diaper Diaper Incontinent Incontinent # Voids 1 2 # Bowel Movements 1 - Exam Head normocephalic and atraumatic Neck supple no JVD no goiter Lungs crackles in the right lower base Heart regular rate and rhythm S1-S2, no rub or gallop Abdomen is soft nontender nondistended positive bowel sounds no hepatosplenomegaly Extremities no edema. Chronic leg wound on the right leg no evidence of acute infection Neuro alert and orientated to 3 - Labs CBC & Chem 7: 12/10/17 05:38 12/10/17 05:38 Labs: Abnormal Lab Results - Last 24 Hours (Table) 12/09/17 12/09/17 12/10/17 Range/Units 16:49 21:04 05:38 RBC 3.45 L (3.80-5.40) m/uL Hgb 10.6 L (11.4-16.0) gm/dL Hct 33.3 L (34.0-46.0) % RDW 16.2 H (11.5-15.5) % Plt Count 139 L (150-450) k/uL BUN (7-17) mg/dL Creatinine (0.52-1.04) mg/dL Glucose (74-99) mg/dL POC Glucose (mg/dL) 197 H 149 H (75-99) mg/dL AST (14-36) U/L Alkaline Phosphatase (38-126) U/L Total Protein (6.3-8.2) g/dL Albumin (3.5-5.0) g/dL 12/10/17 12/10/17 12/10/17 Range/Units 05:38 06:19 12:05 RBC (3.80-5.40) m/uL Hgb (11.4-16.0) gm/dL Hct (34.0-46.0) % RDW (11.5-15.5) % Plt Count (150-450) k/uL BUN 43 H (7-17) mg/dL Creatinine 1.07 H (0.52-1.04) mg/dL Glucose 108 H (74-99) mg/dL POC Glucose (mg/dL) 119 H 147 H (75-99) mg/dL AST 37 H (14-36) U/L Alkaline Phosphatase 179 H (38-126) U/L Total Protein 5.4 L (6.3-8.2) g/dL Albumin 3.0 L (3.5-5.0) g/dL Assessment and Plan Plan: 1. Altered mental status changes: Possibly a metabolic encephalopathy secondary to infection, congestive heart failure or hyperglycemia. Computed tomography scan of the brain shows no acute intracranial abnormality. 2. Bacteremia with blood culture growing staph epidermidis. This is a contamination. Vancomycin discontinued. 3. Acute on chronic systolic congestive heart failure with an EF of 20-25% that was noted on echo in September 2017. Patient had elevated BNP on admission. IV Lasix discontinued switched over to oral Lasix 4. Hallucinations and delirium evaluated by psychiatry. Medications adjusted. Hallucinations seem to be improving 5. Hyperkalemia: Aldactone and Entresto discontinued. Potassium level now down to normal, will resume Entresto continue to withhold Aldactone 6. Insulin-dependent diabetes mellitus with elevated blood sugar of 447 on admission. continue Home insulin. Add sliding scale coverage. No ketones in urine. Blood sugars now stable 7. History of ischemic cardiomyopathy status post AICD 8. Acute on Chronic kidney disease, stage III. Acute kidney injury secondary to hypotension. Has been seen by nephrology. Kidney functions are improving. Lasix dose was decreased to 40 mg by mouth daily 9. History of coronary artery disease with prior bypass surgery and cardiac Stents 10. Paroxysmal atrial fibrillation: Not on anticoagulation due to frequent falls 11. Chronic right leg venous stasis ulcer: Followed at wound care center by Dr. Mejias. No evidence of cellulitis. Continue local wound care. Infectious disease following 12. Dysphagia seen by GI service. Patient underwent esophagram showing no stricture or mass. Did reveal an underlying esophageal dysmotility present. 13. Possibility of a pelvic venous obstruction noted on CAT scan of the abdomen. Patient evaluated by Dr. Vang. And she will follow-up with him in the outpatient setting for further workup 14. Oral candidiasis receiving nystatin swish and swallow 15. Elevated troponin at 6.4. Possible mild non-ST elevated [place]. Cardiology evaluated patient and added statin. Continue baby aspirin 16. Possible mixed bacterial pneumonia: On Rocephin. Followed by infectious disease GI prophylaxis Protonix and DVT prophylaxis subcu heparin
[2017-12-10 17:21] LABS: Glucose,Whole Blood 254 mg/dL (75-99)
[2017-12-10] MEDS: CHOLECALCIFEROL 1,000 UNIT TAB PO SCH (17:52)
[2017-12-10] MEDS: LEVOTHYROXINE 25 MCG TAB PO SCH (17:57)
[2017-12-10] MEDS: POLYETHYLENE GLYCOL 3350 17 GM POWD.PACK PO SCH (17:58)
[2017-12-10 21:06] LABS: Glucose,Whole Blood 183 mg/dL (75-99)
[2017-12-10] MEDS: PREGABALIN 50 MG CAP PO SCH (22:08)
[2017-12-10] MEDS: COLLAGENASE 250 UNIT/GM OINTMENT 30 GM TUBE TOPICAL SCH (22:08)
[2017-12-10] MEDS: traZODone HCL 50 MG TAB PO SCH (22:09)
[2017-12-10] MEDS: PANTOPRAZOLE 40 MG TABLET PO SCH (22:09)
[2017-12-10] MEDS: ATORVASTATIN 20 MG TAB PO SCH (22:10)
[2017-12-11 02:26] LABS: Glucose,Whole Blood 64 mg/dL (75-99)
[2017-12-11 02:50] LABS: Glucose,Whole Blood 73 mg/dL (75-99)
[2017-12-11 06:15] LABS: Glucose,Whole Blood 96 mg/dL (75-99)
[2017-12-11] MEDS: INSULIN ASPART 100 UNIT/ML 1 ML 10 ML VIAL SQ SCH ×4 (06:18→21:43)
[2017-12-11] MEDS: SODIUM CHLORIDE 0.9% 1,000 ML IV SCH (06:19)
[2017-12-11] MEDS: MIDODRINE 5 MG TAB PO SCH ×2 (06:19→17:40)
[2017-12-11 06:58] LABS: Anisocytosis Slight; Basophils % (A) 0 %; Eosinophils # (A) 0.1 k/uL (0-0.7); Eosinophils % (A) 2 %; HCT 33.9 % (34.0-46.0); Hypochromasia Moderate; Lymphocytes % (A) 15 %; MCH 29.1 pg (25.0-35.0); MCHC 29.6 g/dL (31.0-37.0); MCV 98.5 fL (80.0-100.0); Macrocytosis Slight; Mean Platelet Volume 8.5; Monocytes # (A) 0.4 k/uL (0-1.0); Monocytes % (A) 6 %; Neutrophils % (A) 75 %; Platelet Count 129 k/uL (150-450); RBC 3.44 m/uL (3.80-5.40); WBC 6.7 k/uL (3.8-10.6)
[2017-12-11 07:14] LABS: Albumin 3.1 g/dL (3.5-5.0); Calcium 9.2 mg/dL (8.4-10.2); Magnesium 1.5 mg/dL (1.6-2.3); Potassium 4.2 mmol/L (3.5-5.1); Total Bilirubin 0.6 mg/dL (0.2-1.3); Total Protein 5.6 g/dL (6.3-8.2)
[2017-12-11] MEDS: ASPIRIN 81 MG PO SCH (08:38)
[2017-12-11] MEDS: DOCUSATE 100 MG CAP PO SCH ×2 (08:38→17:42)
[2017-12-11] MEDS: ESCITALOPRAM 10 MG TAB PO SCH (08:38)
[2017-12-11] MEDS: INSULN ASP PRT/INSULIN ASPART 100 UNIT/ML 10 ML VIAL SQ SCH ×2 (08:38→21:43)
[2017-12-11] MEDS: cefTRIAXone IN SWFI 1,000 MG/10 ML SYRINGE IVP SCH (08:38)
[2017-12-11] MEDS: ALLOPURINOL 300 MG TAB PO SCH (08:38)
[2017-12-11] MEDS: SACUBITRIL/VALSARTAN 24 MG-26 MG TABLET PO SCH ×2 (08:39→21:43)
[2017-12-11] MEDS: METOPROLOL TARTRATE 25 MG TAB PO SCH ×2 (08:39→21:43)
[2017-12-11] MEDS: NYSTATIN 100,000 UNIT/ML SUSP 500,000 UNIT/5 ML CUP PO SCH ×5 (08:39→21:40)
[2017-12-11] MEDS: FUROSEMIDE 40 MG TAB PO SCH (08:39)
--- NOTE | 2017-12-11 09:50 | P.PN ---
Subjective Progress Note Date: 12/11/17 This is a 77 -year-old female with a known past medical history of atrial fibrillation, congestive heart failure, diabetes mellitus, hypertension, myocardial infarction, CABG with cardiac stents, chronic kidney disease and hypothyroidism. She also has a chronic right leg wound in which she follows with Dr. Mejias in the wound care clinic. Patient is currently been at [facility] for rehabilitation. Her daughter patient has been very confused having hallucinations and not been herself. On admission her glucose was 447, she had a temp of 100.8 white count elevated at 15. Potassium elevated at 6. BNP elevated at 13,800. Urinalysis was negative influenza screen negative. Chest x-ray showed poor inspiration no evidence of an infection. EKG first-degree AV block with PACs. Patient received Kayexalate in the emergency room. Awaiting repeat potassium level. Patient reports having diarrhea off and on for the last 3 weeks. But it usually just one episode for that day and then a few days with a regular bowel movements. She denies any nausea or vomiting. Denies any chest pain. Occasional shortness of breath. She was started on IV Lasix for possible CHF exacerbation. Her insulin has been restarted. Patient reports taking her insulin at [address] [place]. She denies any burning with urination. Denies any sore throat earache runny nose or congestion. Infectious disease, psychiatry and cardiology of been consulted. Infectious disease has placed patient on Rocephin and Flagyl for possible abdominal source. 12/02/2017 patient sleeping comfortably this morning when evaluated. She is arousable and able to answer questions. Poor appetite this morning. Reports that her legs are hurting. Her insulin was held this morning for blood sugar 101. Patient denies any chest pain or shortness of breath. Denies any nausea or vomiting. Did have a bowel movement after the Kayexalate. Potassium is coming down from 6-4.6. Denies any burning with urination. White count has come up from 13.1-14.7. Computed tomography scan of the brain with cerebral atrophy with central cerebral atrophy and secondary mild ventriculomegaly. Mild changes of chronic small vessel ischemic changes. No acute intracranial abnormality. Computed tomography scan of the abdomen showing cardiomegaly. Right pleural effusion. Mild atelectasis at the right lung base. Pleural fluid increased compared to old exam. There is improved aeration of lung bases compared to old exam. There is no ascites fluid in the abdomen.. Could correlate to chronic congestive heart failure. Calcified urine fibroids. Stable small right he will hernia that contains fat. Stable varicose veins in the suprapubic region that raises the possibility of pelvic venous obstruction. Patient is on IV Lasix. Still reporting some shortness of breath. Denies any chest pain. Denies any nausea or vomiting. 12/05/2017 patient is sitting up in bedside chair comfortably. Reports improvement in her breathing. She is still having difficulty with swallowing. On antibiotics for possible pneumonia. Denies cough. Kidney functions are showing improvement over the weekend. Creatinine is down to 1.56. Patient denies any chest pain nausea or vomiting. Reports having bowel movements. Denies any burning with urination. 12/06/2017 patient sitting up in bedside chair. Underwent esophagram today showing no mass or stricture underlying esophageal dysmotility is present. Chest x-ray from yesterday shows no pneumonia. She is having regular bowel movements. Denies any chest pain or shortness of breath. Creatinine is improving down to 1.15 On 12/07/2017 patient is alert somnolent in no apparent distress complaining of sore tongue complaining of drowsiness and fatigue she denies any chest pain or shortness of breath she has not been out of bed no nausea or vomiting no abdominal pain and no urinary symptoms. Potassium is down to normal level at 4.3 at this time will resume and Entresto at the lowest dose will continue to withhold Aldactone 12/08/2017 patient was transferred to the sixth floor last night for cardiac arrhythmia. Cardiology was consulted. Patient denies any chest pain. She just reports not feeling right and felt that her heart was racing. Denies any nausea or vomiting. Denies any bowel movement changes. Daughter is concerned that patient may not been urinating enough during the day. Patient is incontinent of urine. Nursing staff notified and will monitor closely. And will check a post void residual. Voiding record from yesterday reveals 3 diapers with urine. And has already urinated twice this morning. Patient complains of sore tongue 12/09/2017 patient had episodes of hypoglycemia yesterday. Reports that she is not eating as much as she usually does. Insulin has been adjusted. Patient also having some hypotension through the evening. She had just recently been restarted on her entresto and Lasix 40 twice a day. She had a BP of 89/45 to the evening. Repeat blood pressure is 112/55. Blood pressure pills held this morning. Creatinine remains at 1.20. Lasix will be decreased to 40 mg by mouth daily. Denies any chest pain or shortness of breath. Denies any nausea or vomiting. Complaining of constipation. Denies any burning with urination 12/10/2017 patient is alert and oriented sitting, to be on the edge of the bed breathing on room air without any oxygen at this time no shortness of breath at rest. She had just recently been restarted on her entresto . She had a BP of 118/56. Creatinine remains at 1.25. Denies any chest pain or shortness of breath. Denies any nausea or vomiting. Complaining of constipation. Denies any burning with urination Objective - Vital Signs Vital signs: Vital Signs Temp 96.8 F L 12/11/17 08:00 Pulse 57 L 12/11/17 08:00 Resp 18 12/11/17 04:10 BP 118/56 12/11/17 08:00 Pulse Ox 96 12/11/17 08:00 Intake & Output 12/10/17 12/11/17 12/11/17 18:59 06:59 18:59 Intake Total 660 20 Output Total 800 Balance -140 20 Weight 135 kg Intake: Intake, IV Titration 20 Amount Sodium Chloride 0.9% 1, 20 000 ml @ 20 mls/hr IV . Q24H [facility] Rx#:[id number] Oral 660 Output: Urine 800 Other: Voiding Method Diaper Diaper Incontinent Incontinent # Voids 2 2 - Exam Head normocephalic and atraumatic Neck supple no JVD no goiter Lungs crackles in the right lower base Heart regular rate and rhythm S1-S2, no rub or gallop Abdomen is soft nontender nondistended positive bowel sounds no hepatosplenomegaly Extremities no edema. Chronic leg wound on the right leg no evidence of acute infection Neuro alert and orientated to 3 - Labs CBC & Chem 7: 12/11/17 06:04 12/11/17 06:04 Labs: Abnormal Lab Results - Last 24 Hours (Table) 12/10/17 12/10/17 12/10/17 Range/Units 12:05 17:03 21:04 RBC (3.80-5.40) m/uL Hgb (11.4-16.0) gm/dL Hct (34.0-46.0) % MCHC (31.0-37.0) g/dL RDW (11.5-15.5) % Plt Count (150-450) k/uL Carbon Dioxide (22-30) mmol/L BUN (7-17) mg/dL Creatinine (0.52-1.04) mg/dL POC Glucose (mg/dL) 147 H 254 H 183 H (75-99) mg/dL Magnesium (1.6-2.3) mg/dL Alkaline Phosphatase (38-126) U/L Total Protein (6.3-8.2) g/dL Albumin (3.5-5.0) g/dL 12/11/17 12/11/17 12/11/17 Range/Units 02:05 02:29 06:04 RBC 3.44 L (3.80-5.40) m/uL Hgb 10.0 L (11.4-16.0) gm/dL Hct 33.9 L (34.0-46.0) % MCHC 29.6 L (31.0-37.0) g/dL RDW 16.0 H (11.5-15.5) % Plt Count 129 L (150-450) k/uL Carbon Dioxide (22-30) mmol/L BUN (7-17) mg/dL Creatinine (0.52-1.04) mg/dL POC Glucose (mg/dL) 64 L 73 L (75-99) mg/dL Magnesium (1.6-2.3) mg/dL Alkaline Phosphatase (38-126) U/L Total Protein (6.3-8.2) g/dL Albumin (3.5-5.0) g/dL 12/11/17 Range/Units 06:04 RBC (3.80-5.40) m/uL Hgb (11.4-16.0) gm/dL Hct (34.0-46.0) % MCHC (31.0-37.0) g/dL RDW (11.5-15.5) % Plt Count (150-450) k/uL Carbon Dioxide 32 H (22-30) mmol/L BUN 43 H (7-17) mg/dL Creatinine 1.25 H (0.52-1.04) mg/dL POC Glucose (mg/dL) (75-99) mg/dL Magnesium 1.5 L (1.6-2.3) mg/dL Alkaline Phosphatase 166 H (38-126) U/L Total Protein 5.6 L (6.3-8.2) g/dL Albumin 3.1 L (3.5-5.0) g/dL Assessment and Plan Plan: 1. Altered mental status changes: Possibly a metabolic encephalopathy secondary to infection, congestive heart failure or hyperglycemia. Computed tomography scan of the brain shows no acute intracranial abnormality. Improved mental status is back to baseline at this time 2. Bacteremia with blood culture growing staph epidermidis. This is a contamination. Vancomycin discontinued. 3. Acute on chronic systolic congestive heart failure with an EF of 20-25% that was noted on echo in September 2017. Patient had elevated BNP on admission. IV Lasix discontinued switched over to oral Lasix 4. Hallucinations and delirium evaluated by psychiatry. Medications adjusted. Hallucinations seem to be improving 5. Hyperkalemia: Aldactone and Entresto discontinued. Potassium level now down to normal, will resume Entresto continue to withhold Aldactone 6. Insulin-dependent diabetes mellitus with elevated blood sugar of 447 on admission. continue Home insulin. Add sliding scale coverage. No ketones in urine. Blood sugars now stable 7. History of ischemic cardiomyopathy status post AICD 8. Acute on Chronic kidney disease, stage III. Acute kidney injury secondary to hypotension. Has been seen by nephrology. Kidney functions are improving. Lasix dose was decreased to 40 mg by mouth daily 9. History of coronary artery disease with prior bypass surgery and cardiac Stents 10. Paroxysmal atrial fibrillation: Not on anticoagulation due to frequent falls 11. Chronic right leg venous stasis ulcer: Followed at wound care center by Dr. Mejias. No evidence of cellulitis. Continue local wound care. Infectious disease following 12. Dysphagia seen by GI service. Patient underwent esophagram showing no stricture or mass. Did reveal an underlying esophageal dysmotility present. 13. Possibility of a pelvic venous obstruction noted on CAT scan of the abdomen. Patient evaluated by Dr. Vang. And she will follow-up with him in the outpatient setting for further workup 14. Oral candidiasis receiving nystatin swish and swallow 15. Elevated troponin at 6.4. Possible mild non-ST elevated [place]. Cardiology evaluated patient and added statin. Continue baby aspirin 16. Possible mixed bacterial pneumonia: On Rocephin. Followed by infectious disease Patient is improving gradually stable transfer back to group home in the next 1-2 days, GI prophylaxis Protonix and DVT prophylaxis subcu heparin
--- NOTE | 2017-12-11 09:54 | P.PN ---
Subjective Patient is seen in follow-up for acute kidney injury. Creatinine is 1.25 today. She is currently maintained on Lasix 40 mg orally once daily. Denies any chest pain or shortness of breath. Oral intake is fair. Admits to good urine output. She does have history of systolic CHF with ejection fraction of 20-25%. Vital signs are stable. General: The patient appeared well nourished and normally developed. HEENT: Head exam is unremarkable. Neck is without jugular venous distension. LUNGS: Lungs are clear to auscultation and percussion. Breath sounds decreased. HEART: Rate and Rhythm are regular. First and second heart sounds normal. No murmurs, rubs or gallops. ABDOMEN: Abdominal exam reveals normal bowel sounds. Non-tender and non- distended. No evidence of peritonitis. EXTREMITITES: Trace edema. Wrapped. No obvious drainage noted. Objective - Vital Signs Vital signs: Vital Signs Temp 96.8 F L 12/11/17 08:00 Pulse 57 L 12/11/17 08:00 Resp 18 12/11/17 04:10 BP 118/56 12/11/17 08:00 Pulse Ox 96 12/11/17 08:00 Intake & Output 12/10/17 12/11/17 12/11/17 18:59 06:59 18:59 Intake Total 660 20 Output Total 800 Balance -140 20 Weight 135 kg Intake: Intake, IV Titration 20 Amount Sodium Chloride 0.9% 1, 20 000 ml @ 20 mls/hr IV . Q24H [facility] Rx#:[id number] Oral 660 Output: Urine 800 Other: Voiding Method Diaper Diaper Incontinent Incontinent # Voids 2 2 - Labs CBC & Chem 7: 12/11/17 06:04 12/11/17 06:04 Labs: Abnormal Lab Results - Last 24 Hours (Table) 12/10/17 12/10/17 12/10/17 Range/Units 12:05 17:03 21:04 RBC (3.80-5.40) m/uL Hgb (11.4-16.0) gm/dL Hct (34.0-46.0) % MCHC (31.0-37.0) g/dL RDW (11.5-15.5) % Plt Count (150-450) k/uL Carbon Dioxide (22-30) mmol/L BUN (7-17) mg/dL Creatinine (0.52-1.04) mg/dL POC Glucose (mg/dL) 147 H 254 H 183 H (75-99) mg/dL Magnesium (1.6-2.3) mg/dL Alkaline Phosphatase (38-126) U/L Total Protein (6.3-8.2) g/dL Albumin (3.5-5.0) g/dL 12/11/17 12/11/17 12/11/17 Range/Units 02:05 02:29 06:04 RBC 3.44 L (3.80-5.40) m/uL Hgb 10.0 L (11.4-16.0) gm/dL Hct 33.9 L (34.0-46.0) % MCHC 29.6 L (31.0-37.0) g/dL RDW 16.0 H (11.5-15.5) % Plt Count 129 L (150-450) k/uL Carbon Dioxide (22-30) mmol/L BUN (7-17) mg/dL Creatinine (0.52-1.04) mg/dL POC Glucose (mg/dL) 64 L 73 L (75-99) mg/dL Magnesium (1.6-2.3) mg/dL Alkaline Phosphatase (38-126) U/L Total Protein (6.3-8.2) g/dL Albumin (3.5-5.0) g/dL 12/11/17 Range/Units 06:04 RBC (3.80-5.40) m/uL Hgb (11.4-16.0) gm/dL Hct (34.0-46.0) % MCHC (31.0-37.0) g/dL RDW (11.5-15.5) % Plt Count (150-450) k/uL Carbon Dioxide 32 H (22-30) mmol/L BUN 43 H (7-17) mg/dL Creatinine 1.25 H (0.52-1.04) mg/dL POC Glucose (mg/dL) (75-99) mg/dL Magnesium 1.5 L (1.6-2.3) mg/dL Alkaline Phosphatase 166 H (38-126) U/L Total Protein 5.6 L (6.3-8.2) g/dL Albumin 3.1 L (3.5-5.0) g/dL Assessment and Plan Plan: Assessment: #1. Nonoliguric acute kidney injury secondary to ATN secondary to hypotension with component of cardiorenal syndrome. Creatinine 1.25 today. #2. Systolic CHF with ejection fraction of 20-25%. Currently compensated. #3. Volume overload. Improved. #4. Lower extremity cellulitis maintained on antibiotics. Infectious disease following. #5. Chronic hypotension maintained on midodrine. #6. Hypomagnesemia secondary to diuretics. #7. Insulin-dependent diabetes mellitus. Plan: Continue Lasix 40 mg once daily. Encouraged oral intake. Avoid nephrotoxic agents and hypotensive episodes. Repeat electrolytes in the morning. Replace magnesium. 2 g IV today.
[2017-12-11] MEDS: MAGNESIUM SULFATE-D5W PMX 1 GM in DEXTROSE/WATER 1 100ML.BAG IVPB SCH ×2 (12:04→12:10)
[2017-12-11 12:08] LABS: Glucose,Whole Blood 68 mg/dL (75-99)
[2017-12-11 17:24] LABS: Glucose,Whole Blood 127 mg/dL (75-99)
[2017-12-11] MEDS: LEVOTHYROXINE 25 MCG TAB PO SCH (17:40)
[2017-12-11] MEDS: CHOLECALCIFEROL 1,000 UNIT TAB PO SCH (17:40)
[2017-12-11] MEDS: POLYETHYLENE GLYCOL 3350 17 GM POWD.PACK PO SCH (17:41)
[2017-12-11] MEDS ORDERED: COLLAGENASE 250 UNIT/GM OINTMENT 30 GM TUBE TOPICAL SCH (21:00)
[2017-12-11 21:10] LABS: Glucose,Whole Blood 193 mg/dL (75-99)
[2017-12-11] MEDS: PANTOPRAZOLE 40 MG TABLET PO SCH (21:42)
[2017-12-11] MEDS: traZODone HCL 50 MG TAB PO SCH (21:42)
[2017-12-11] MEDS: ATORVASTATIN 20 MG TAB PO SCH (21:42)
[2017-12-11] MEDS: PREGABALIN 50 MG CAP PO SCH (21:43)
--- NOTE | 2017-12-12 00:31 | PN ---
PROGRESS NOTE DATE OF SERVICE: 12/11/2017 REASON FOR FOLLOWUP: 1. Fever and the patient had question of pneumonia, adequately treated. 2. Right leg wound and cellulitis. INTERVAL HISTORY: The patient is afebrile. She is breathing comfortably. Denies having any chest pain. No shortness of breath. Very minimal cough. No abdominal pain, no pain in the right leg area and no diarrhea. EXAMINATION: Her blood pressure is 116/62 with a pulse of 53, temperature of 98. She is 99% on room air. General description is an elderly female up in the bed in no distress. RESPIRATORY SYSTEM: Unlabored breathing. Clear to auscultation anteriorly. HEART: S1, S2. Regular rate and rhythm. ABDOMEN: Soft, no tenderness. Right leg wound dressed up, no obvious drainage on the dressing. LABS: BUN of 10, creatinine 0.6. Hemoglobin is 10, white count 6.7, BUN of 43, creatinine 1.25. DIAGNOSTIC IMPRESSION AND PLAN: 1. Patient presented to the hospital and did have a low-grade fever with concern for possible pneumonia. adequately treated as the patient's fever has resolved and had about 10 days of antibiotic. We will go ahead and discontinue the Rocephin. 2. Patient with right leg wound. Local wound care with Santyl followed by moist dressing. Continue supportive care. MMODL / IJN: [id number] /
[2017-12-12] MEDS: SODIUM CHLORIDE 0.9% 1,000 ML IV SCH (06:18)
[2017-12-12 06:22] LABS: Glucose,Whole Blood 138 mg/dL (75-99)
[2017-12-12] MEDS: INSULIN ASPART 100 UNIT/ML 1 ML 10 ML VIAL SQ SCH ×2 (06:43→12:54)
[2017-12-12] MEDS: MIDODRINE 5 MG TAB PO SCH (06:43)
[2017-12-12 06:44] LABS: Anisocytosis Slight; Basophils % (A) 0 %; Eosinophils # (A) 0.1 k/uL (0-0.7); Eosinophils % (A) 1 %; HCT 34.4 % (34.0-46.0); Hypochromasia Slight; Lymphocytes # (A) 1.1 k/uL (1.0-4.8); Lymphocytes % (A) 13 %; MCH 30.9 pg (25.0-35.0); MCHC 31.9 g/dL (31.0-37.0); MCV 96.9 fL (80.0-100.0); Macrocytosis Slight; Mean Platelet Volume 8.2; Monocytes # (A) 0.4 k/uL (0-1.0); Monocytes % (A) 4 %; Neutrophils # (A) 6.5 k/uL (1.3-7.7); Neutrophils % (A) 79 %; Platelet Count 139 k/uL (150-450); RBC 3.55 m/uL (3.80-5.40); RDW 16.3 % (11.5-15.5); WBC 8.2 k/uL (3.8-10.6)
[2017-12-12 06:56] LABS: Albumin 3.2 g/dL (3.5-5.0); Calcium 9.1 mg/dL (8.4-10.2); Potassium 4.3 mmol/L (3.5-5.1); Total Bilirubin 0.6 mg/dL (0.2-1.3); Total Protein 5.7 g/dL (6.3-8.2)
[2017-12-12] MEDS: ALLOPURINOL 300 MG TAB PO SCH (09:01)
[2017-12-12] MEDS: DOCUSATE 100 MG CAP PO SCH (09:02)
[2017-12-12] MEDS: ASPIRIN 81 MG PO SCH (09:02)
[2017-12-12] MEDS: FUROSEMIDE 40 MG TAB PO SCH (09:02)
[2017-12-12] MEDS: ESCITALOPRAM 10 MG TAB PO SCH (09:02)
[2017-12-12] MEDS: SACUBITRIL/VALSARTAN 24 MG-26 MG TABLET PO SCH (09:03)
[2017-12-12] MEDS: NYSTATIN 100,000 UNIT/ML SUSP 500,000 UNIT/5 ML CUP PO SCH ×2 (09:03→13:04)
[2017-12-12] MEDS: METOPROLOL TARTRATE 25 MG TAB PO SCH (09:03)
--- NOTE | 2017-12-12 09:14 | P.PN ---
Subjective Patient is seen in follow-up for acute kidney injury. Creatinine is 1.3 today. She is currently maintained on Lasix 40 mg orally once daily. Denies any chest pain or shortness of breath. Oral intake is fair. Admits to good urine output. She does have history of systolic CHF with ejection fraction of 20-25% . Feels more tired today. Vital signs are stable. General: The patient appeared well nourished and normally developed. HEENT: Head exam is unremarkable. Neck is without jugular venous distension. LUNGS: Lungs are clear to auscultation and percussion. Breath sounds decreased. HEART: Rate and Rhythm are regular. First and second heart sounds normal. No murmurs, rubs or gallops. ABDOMEN: Abdominal exam reveals normal bowel sounds. Non-tender and non- distended. No evidence of peritonitis. EXTREMITITES: Trace edema. Wrapped. No obvious drainage noted. Objective - Vital Signs Vital signs: Vital Signs Temp 98.5 F 12/12/17 04:15 Pulse 65 12/12/17 04:15 Resp 18 12/12/17 04:15 BP 110/59 12/12/17 04:15 Pulse Ox 98 12/12/17 04:15 Intake & Output 12/11/17 12/12/17 12/12/17 18:59 06:59 18:59 Intake Total 200 118 Output Total 1050 Balance -850 118 Weight 78 kg Intake: Intake, IV Titration 20 Amount Sodium Chloride 0.9% 1, 20 000 ml @ 20 mls/hr IV . Q24H [facility] Rx#:[id number] Oral 180 118 Output: Urine 1050 Other: Voiding Method Diaper Diaper Incontinent Incontinent # Voids 2 1 # Bowel Movements 1 - Labs CBC & Chem 7: 12/12/17 05:55 12/12/17 05:55 Labs: Abnormal Lab Results - Last 24 Hours (Table) 12/11/17 12/11/17 12/11/17 Range/Units 12:06 17:03 21:09 RBC (3.80-5.40) m/uL Hgb (11.4-16.0) gm/dL RDW (11.5-15.5) % Plt Count (150-450) k/uL BUN (7-17) mg/dL Creatinine (0.52-1.04) mg/dL Glucose (74-99) mg/dL POC Glucose (mg/dL) 68 L 127 H 193 H (75-99) mg/dL Alkaline Phosphatase (38-126) U/L Total Protein (6.3-8.2) g/dL Albumin (3.5-5.0) g/dL 12/12/17 12/12/17 12/12/17 Range/Units 05:55 05:55 06:17 RBC 3.55 L (3.80-5.40) m/uL Hgb 11.0 L (11.4-16.0) gm/dL RDW 16.3 H (11.5-15.5) % Plt Count 139 L (150-450) k/uL BUN 46 H (7-17) mg/dL Creatinine 1.31 H (0.52-1.04) mg/dL Glucose 131 H (74-99) mg/dL POC Glucose (mg/dL) 138 H (75-99) mg/dL Alkaline Phosphatase 174 H (38-126) U/L Total Protein 5.7 L (6.3-8.2) g/dL Albumin 3.2 L (3.5-5.0) g/dL Assessment and Plan Plan: Assessment: #1. Nonoliguric acute kidney injury secondary to ATN secondary to hypotension with component of cardiorenal syndrome. Creatinine 1.3 today. #2. Systolic CHF with ejection fraction of 20-25%. Currently compensated. #3. Volume overload. Improved. #4. Lower extremity cellulitis maintained on antibiotics. Infectious disease following. #5. Chronic hypotension maintained on midodrine. #6. Hypomagnesemia secondary to diuretics. S/p replacement. #7. Insulin-dependent diabetes mellitus. Plan: Continue Lasix 40 mg once daily. Encouraged oral intake. Avoid nephrotoxic agents and hypotensive episodes. Repeat electrolytes in the morning.
[2017-12-12 12:04] LABS: Glucose,Whole Blood 154 mg/dL (75-99)
[2017-12-12] MEDS ORDERED: MIDODRINE 5 MG TAB PO SCH (12:30)
[2017-12-12] MEDS: INSULN ASP PRT/INSULIN ASPART 100 UNIT/ML 10 ML VIAL SQ SCH (12:53)
--- NOTE | 2017-12-12 13:39 | P.DS ---
Providers Date of admission: 12/01/17 00:30 Expected date of discharge: 12/12/17 Attending physician: Giovanny Cesar Consults: 12/01/17 12:36 Consult Physician Routine Consulting Provider: Yoni Mejias Consult Reason/Comments: fever of unknown origin Do you want consulting provider notified?: Yes 12/01/17 14:03 Consult Physician Routine Consulting Provider: Helen Rooney Consult Reason/Comments: Hallucinations Do you want consulting provider notified?: Yes 12/01/17 14:04 Consult Physician Routine Consulting Provider: Geo Vasquez Consult Reason/Comments: mild CHF exacerbation Do you want consulting provider notified?: Yes 12/02/17 13:30 Consult Physician Routine Consulting Provider: Tony Vang Consult Reason/Comments: possible pelvic venous obstruction Do you want consulting provider notified?: Yes 12/03/17 09:11 Consult Physician Routine Consulting Provider: Rohan Call Consult Reason/Comments: elevated BUN and Creatine Do you want consulting provider notified?: Yes 12/06/17 13:48 Consult Physician Routine Consulting Provider: Nicolás Herr Consult Reason/Comments: palate mass Do you want consulting provider notified?: Yes 12/07/17 18:52 Consult Physician Routine Consulting Provider: Geo Vasquez Consult Reason/Comments: reconsult due to telemetry rhythm change, strips on chart Do you want consulting provider notified?: Yes Primary care physician: [facility] Course: Discharge diagnosis 1. Altered mental status changes: Possibly a metabolic encephalopathy secondary to infection, congestive heart failure or hyperglycemia. Computed tomography scan of the brain shows no acute intracranial abnormality. Improved mental status is back to baseline at this time 2. Bacteremia with blood culture growing staph epidermidis. This is a contamination. Vancomycin discontinued. 3. Acute on chronic systolic congestive heart failure with an EF of 20-25% that was noted on echo in September 2017. Patient had elevated BNP on admission. IV Lasix discontinued switched over to oral Lasix 4. Hallucinations and delirium evaluated by psychiatry. Medications adjusted. Hallucinations seem to be improving 5. Hyperkalemia: Aldactone and Entresto discontinued. Potassium level now down to normal, will resume Entresto continue to withhold Aldactone patient will remain off of Aldactone 6. Insulin-dependent diabetes mellitus with elevated blood sugar of 447 on admission. Patient did also have hypoglycemia. Insulin was further adjusted. Blood sugars are now stable. 7. History of ischemic cardiomyopathy status post AICD 8. Acute on Chronic kidney disease, stage III. Acute kidney injury secondary to hypotension. Patient seen by nephrology. Creatinine 1.3 at discharge. Nephrology recommending Lasix 40 mg daily. 9. History of coronary artery disease with prior bypass surgery and cardiac Stents 10. Paroxysmal atrial fibrillation: Not on anticoagulation due to frequent falls 11. Chronic right leg venous stasis ulcer: Followed at wound care center by Dr. Mejias. No evidence of cellulitis. Continue local wound care. Infectious disease following 12. Dysphagia seen by GI service. Patient underwent esophagram showing no stricture or mass. Did reveal an underlying esophageal dysmotility present. 13. Possibility of a pelvic venous obstruction noted on CAT scan of the abdomen. Patient evaluated by Dr. Vang. And she will follow-up with him in the outpatient setting for further workup 14. Oral candidiasis receiving nystatin swish and swallow 15. Elevated troponin at 6.4. Possible mild non-ST elevated RI. Cardiology evaluated patient and added statin. Continue baby aspirin 16. Possible mixed bacterial pneumonia: Seen by infectious disease. Completed antibiotics during hospitalization 17 depression: Lexapro started during this admission Hospital course This is a 77 -year-old female with a known past medical history of atrial fibrillation, congestive heart failure, diabetes mellitus, hypertension, myocardial infarction, CABG with cardiac stents, chronic kidney disease and hypothyroidism. She also has a chronic right leg wound in which she follows with Dr. Mejias in the wound care clinic. Patient is currently been at [facility] for rehabilitation. Her daughter patient has been very confused having hallucinations and not been herself. On admission her glucose was 447, she had a temp of 100.8 white count elevated at 15. Potassium elevated at 6. BNP elevated at 13,800. Urinalysis was negative influenza screen negative. Chest x-ray showed poor inspiration no evidence of an infection. EKG first-degree AV block with PACs. Patient received Kayexalate in the emergency room. Awaiting repeat potassium level. Patient reports having diarrhea off and on for the last 3 weeks. But it usually just one episode for that day and then a few days with a regular bowel movements. She denies any nausea or vomiting. Denies any chest pain. Occasional shortness of breath. She was started on IV Lasix for possible CHF exacerbation. Her insulin has been restarted. Patient reports taking her insulin at [address]. She denies any burning with urination. Denies any sore throat earache runny nose or congestion. Infectious disease, psychiatry and cardiology of been consulted. Infectious disease has placed patient on Rocephin and Flagyl for possible abdominal source. 12/02/2017 patient sleeping comfortably this morning when evaluated. She is arousable and able to answer questions. Poor appetite this morning. Reports that her legs are hurting. Her insulin was held this morning for blood sugar 101. Patient denies any chest pain or shortness of breath. Denies any nausea or vomiting. Did have a bowel movement after the Kayexalate. Potassium is coming down from 6-4.6. Denies any burning with urination. White count has come up from 13.1-14.7. Computed tomography scan of the brain with cerebral atrophy with central cerebral atrophy and secondary mild ventriculomegaly. Mild changes of chronic small vessel ischemic changes. No acute intracranial abnormality. Computed tomography scan of the abdomen showing cardiomegaly. Right pleural effusion. Mild atelectasis at the right lung base. Pleural fluid increased compared to old exam. There is improved aeration of lung bases compared to old exam. There is no ascites fluid in the abdomen.. Could correlate to chronic congestive heart failure. Calcified urine fibroids. Stable small right he will hernia that contains fat. Stable varicose veins in the suprapubic region that raises the possibility of pelvic venous obstruction. Patient is on IV Lasix. Still reporting some shortness of breath. Denies any chest pain. Denies any nausea or vomiting. 12/05/2017 patient is sitting up in bedside chair comfortably. Reports improvement in her breathing. She is still having difficulty with swallowing. On antibiotics for possible pneumonia. Denies cough. Kidney functions are showing improvement over the weekend. Creatinine is down to 1.56. Patient denies any chest pain nausea or vomiting. Reports having bowel movements. Denies any burning with urination. 12/06/2017 patient sitting up in bedside chair. Underwent esophagram today showing no mass or stricture underlying esophageal dysmotility is present. Chest x-ray from yesterday shows no pneumonia. She is having regular bowel movements. Denies any chest pain or shortness of breath. Creatinine is improving down to 1.15 On 12/07/2017 patient is alert somnolent in no apparent distress complaining of sore tongue complaining of drowsiness and fatigue she denies any chest pain or shortness of breath she has not been out of bed no nausea or vomiting no abdominal pain and no urinary symptoms. Potassium is down to normal level at 4.3 at this time will resume and Entresto at the lowest dose will continue to withhold Aldactone 12/08/2017 patient was transferred to the sixth floor last night for cardiac arrhythmia. Cardiology was consulted. Patient denies any chest pain. She just reports not feeling right and felt that her heart was racing. Denies any nausea or vomiting. Denies any bowel movement changes. Daughter is concerned that patient may not been urinating enough during the day. Patient is incontinent of urine. Nursing staff notified and will monitor closely. And will check a post void residual. Voiding record from yesterday reveals 3 diapers with urine. And has already urinated twice this morning. Patient complains of sore tongue 12/09/2017 patient had episodes of hypoglycemia yesterday. Reports that she is not eating as much as she usually does. Insulin has been adjusted. Patient also having some hypotension through the evening. She had just recently been restarted on her entresto and Lasix 40 twice a day. She had a BP of 89/45 to the evening. Repeat blood pressure is 112/55. Blood pressure pills held this morning. Creatinine remains at 1.20. Lasix will be decreased to 40 mg by mouth daily. Denies any chest pain or shortness of breath. Denies any nausea or vomiting. Complaining of constipation. Denies any burning with urination 12/10/2017 patient is alert and oriented sitting, to be on the edge of the bed breathing on room air without any oxygen at this time no shortness of breath at rest. She had just recently been restarted on her entresto . She had a BP of 118/56. Creatinine remains at 1.25. Denies any chest pain or shortness of breath. Denies any nausea or vomiting. Complaining of constipation. Denies any burning with urination Patient was seen by consulting physicians. She has been cleared for discharge. Her symptoms are improving. She completed treatment for pneumonia during her auscultation. No further needs for antibiotics. Her mentation has returned to baseline. She is tolerating diet and has had no further difficulties with swallowing. She'll continue nystatin swish and follow-up swallow for a couple more days for the oral thrush. Aldactone discontinued during this admission due to episodes of hyperkalemia and hypotension. Blood pressures have improved as well as potassium level. Entresto was able to be restarted. Patient was seen evaluated by cardiology in regards to hypotension. They felt that there is no significant evidence of any arrhythmias. They decreased her metoprolol to 25 mg twice a day and discontinued the into her. Patient was also started on antidepressants during this admission. Patient is medically stable for discharge. She will return to [facility] I performed an examination of the patient and discussed their management with the physician Veneer Jointer Offbearer. I have reviewed the Physician Veneer Jointer Offbearer's notes and agree with the documented findings and plan of care Patient Condition at Discharge: Stable Plan - Discharge Summary Discharge Rx Participant: No New Discharge Prescriptions: New Atorvastatin [Lipitor] 20 mg PO HS tab Escitalopram [Lexapro] 10 mg PO DAILY tab Furosemide [Lasix] 40 mg PO DAILY tab Insuln Asp Prt/Insulin Aspart [NovoLOG MIX 70-30 VIAL] 20 unit SQ DAILY@0800 vial Insuln Asp Prt/Insulin Aspart [NovoLOG MIX 70-30 VIAL] 5 unit SQ HS@2000 vial Metoprolol Tartrate [Lopressor] 25 mg PO BID tab Midodrine [ProAmatine] 5 mg PO TID-W/MEALS #0 tab Nystatin 100,000 Unit/ml Susp [Mycostatin Oral Susp] 500,000 unit PO QID 2 Days cup Pregabalin [Lyrica] 50 mg PO DAILY #30 cap Continue Nitroglycerin Sl Tabs [Nitrostat] 0.4 mg SUBLINGUAL Q5M PRN PRN Reason: Chest Pain Levothyroxine Sodium 25 mcg PO DAILY@1800 Aspirin [Adult Low Dose Aspirin EC] 81 mg PO DAILY@0800 Allopurinol [Zyloprim] 300 mg PO DAILY@0800 Cholecalciferol [Vitamin D3] 1,000 unit PO DAILY@1700 Sacubitril/Valsartan [Entresto 24 mg-26 mg Tablet] 1 tab PO BID traZODone HCL 50 mg PO HS@2000 Meclizine [Antivert] 25 mg PO Q8H PRN PRN Reason: Nausea Ferrous Sulfate [Feosol] 325 mg PO MOWEFR@1700 Omeprazole [PriLOSEC] 20 mg PO HS Polyethylene Glycol 3350 [Miralax] 17 gm PO DAILY@1600 Docusate [Colace] 100 mg PO BID@0800,1700 INSULIN LISPRO (HumaLOG) [humaLOG] See Protocol SQ ACHS Hydrocodone/Acetaminophen [[place] 10-325] 1 tab PO Q6H PRN #40 tablet PRN Reason: Pain Discontinued Metoprolol Tartrate [Lopressor] 50 mg PO BID Isosorbide Mononitrate ER [Imdur] 60 mg PO DAILY@0800 Spironolactone [Aldactone] 25 mg PO BID Insulin NPL/Insulin Lispro [humaLOG MIX 75-25 VIAL] 30 unit SQ DAILY@0800 Pregabalin [Lyrica] 75 mg PO HS@1999 Furosemide [Lasix] 40 mg PO BID Insulin NPL/Insulin Lispro [humaLOG MIX 75-25 VIAL] 10 unit SQ HS@1999 Discharge Medication List Allopurinol [Zyloprim] 300 mg PO DAILY@0800 04/18/17 [History] Aspirin [Adult Low Dose Aspirin EC] 81 mg PO DAILY@0800 04/18/17 [History] Levothyroxine Sodium 25 mcg PO DAILY@1800 04/18/17 [History] Nitroglycerin Sl Tabs [Nitrostat] 0.4 mg SUBLINGUAL Q5M PRN 04/18/17 [History] Cholecalciferol [Vitamin D3] 1,000 unit PO DAILY@1700 08/11/17 [History] Ferrous Sulfate [Feosol] 325 mg PO MOWEFR@1700 08/11/17 [History] Meclizine [Antivert] 25 mg PO Q8H PRN 08/11/17 [History] Sacubitril/Valsartan [Entresto 24 mg-26 mg Tablet] 1 tab PO BID 08/11/17 [ History] traZODone HCL 50 mg PO HS@199908/11/17 [History] Docusate [Colace] 100 mg PO BID@0800,1700 09/18/17 [History] Omeprazole [PriLOSEC] 20 mg PO HS 09/18/17 [History] Polyethylene Glycol 3350 [Miralax] 17 gm PO DAILY@1600 09/18/17 [History] INSULIN LISPRO (HumaLOG) [humaLOG] See Protocol SQ ACHS 11/30/17 [History] Atorvastatin [Lipitor] 20 mg PO HS tab 12/12/17 [Rx] Escitalopram [Lexapro] 10 mg PO DAILY tab 12/12/17 [Rx] Furosemide [Lasix] 40 mg PO DAILY tab 12/12/17 [Rx] Hydrocodone/Acetaminophen [[place] 10-325] 1 tab PO Q6H PRN #40 tablet 12/12/17 [ Rx] Insuln Asp Prt/Insulin Aspart [NovoLOG MIX 70-30 VIAL] 5 unit SQ HS@2000 vial 12/12/17 [Rx] Insuln Asp Prt/Insulin Aspart [NovoLOG MIX 70-30 VIAL] 20 unit SQ DAILY@0800 vial 12/12/17 [Rx] Metoprolol Tartrate [Lopressor] 25 mg PO BID tab 12/12/17 [Rx] Midodrine [ProAmatine] 5 mg PO TID-W/MEALS #0 tab 12/12/17 [Rx] Nystatin 100,000 Unit/ml Susp [Mycostatin Oral Susp] 500,000 unit PO QID 2 Days cup 12/12/17 [Rx] Pregabalin [Lyrica] 50 mg PO DAILY #30 cap 12/12/17 [Rx] Follow up Appointment(s)/Referral(s): Giovanny Cesar MD [Primary Care Provider] - 1 Week Activity/Diet/Wound Care/Special Instructions: Diet cardiac, diabetic Activity as tolerated Check BMP in 1 week Discharge back to [facility]. Dr. Berger to Follow Discharge Disposition: TRANSFER TO SNF/ECF
[2017-12-12] MEDS: POLYETHYLENE GLYCOL 3350 17 GM POWD.PACK PO SCH (15:09)
[2017-12-12 15:51] VITALS: BP 108/57; PULSE 58; TEMP 98
--- NOTE | 2017-12-12 23:32 | PN ---
PROGRESS NOTE DATE OF SERVICE: 12/12/2017. REASON FOR FOLLOW UP: 1. Low grade fever with adequately treated. 2. Right leg wound with no cellulitis. INTERVAL HISTORY: The patient was seen on rounds this morning. The patient has been afebrile. She has been breathing comfortably. Denies any chest pain, shortness of breath or cough. No abdominal pain or any worsening pain in the right leg area. EXAMINATION: Blood pressure 102/57 with a pulse of 68, temperature 98. She is 96% on 2 L nasal cannula. General description is an elderly female lying in bed in no distress. Examination of the right leg wound looks clean with no slough tissue, surrounding swelling, and redness improved. No drainage. LABS: Hemoglobin is 11, white count 8.2, BUN of 46, creatinine is 1.31. DIAGNOSTIC IMPRESSION AND PLAN: Patient with a right leg venous stasis ulcer with no cellulitis. Local wound care to continue with Santyl followed by moist dressing and dressing and an Moe wrap to keep the swelling down. No need for any systemic antibiotic therapy. Daughter was present at bedside. Questions were answered. MMODL / IJN: [id number] /
== END 2017-12-12 16:51 | DRG 193 ==
LOC: EC 22:45 → 4MS4W 12-01 00:30 → 6SEL 12-08 03:35
PROVIDERS: ADMIT Internal Medicine; ATTEND Internal Medicine
DX: J15.9 Unspecified bacterial pneumonia (principal); G93.41 Metabolic encephalopathy; I21.4 Non-ST elevation (NSTEMI) myocardial infarction; N17.0 Acute kidney failure with tubular necrosis; I50.23 Acute on chronic systolic (congestive) heart failure; R18.8 Other ascites; I13.0 Hypertensive heart and chronic kidney disease with heart failure and stage 1 through stage 4 chronic kidney disease, or unspecified chronic kidney disease; B37.0 Candidal stomatitis; R44.3 Hallucinations, unspecified; J98.11 Atelectasis; E11.22 Type 2 diabetes mellitus with diabetic chronic kidney disease; R13.10 Dysphagia, unspecified; N18.3 Chronic kidney disease, stage 3 (moderate); E11.42 Type 2 diabetes mellitus with diabetic polyneuropathy; I95.89 Other hypotension; E11.649 Type 2 diabetes mellitus with hypoglycemia without coma; E11.65 Type 2 diabetes mellitus with hyperglycemia; D25.9 Leiomyoma of uterus, unspecified; E03.9 Hypothyroidism, unspecified; E66.9 Obesity, unspecified; E78.5 Hyperlipidemia, unspecified; E83.41 Hypermagnesemia; E83.42 Hypomagnesemia; E87.5 Hyperkalemia; F32.9 Major depressive disorder, single episode, unspecified; I25.10 Atherosclerotic heart disease of native coronary artery without angina pectoris; I25.2 Old myocardial infarction; I25.5 Ischemic cardiomyopathy; I44.0 Atrioventricular block, first degree; I48.0 Paroxysmal atrial fibrillation; K59.00 Constipation, unspecified; T50.2X5A Adverse effect of carbonic-anhydrase inhibitors, benzothiadiazides and other diuretics, initial encounter; R32 Unspecified urinary incontinence; R29.6 Repeated falls; K40.90 Unilateral inguinal hernia, without obstruction or gangrene, not specified as recurrent; M19.90 Unspecified osteoarthritis, unspecified site; I49.1 Atrial premature depolarization; I87.2 Venous insufficiency (chronic) (peripheral); H40.9 Unspecified glaucoma; R15.9 Full incontinence of feces; G31.9 Degenerative disease of nervous system, unspecified; K22.4 Dyskinesia of esophagus; Z68.29 Body mass index [BMI] 29.0-29.9, adult; I87.8 Other specified disorders of veins; K21.9 Gastro-esophageal reflux disease without esophagitis; M27.8 Other specified diseases of jaws; Z79.4 Long term (current) use of insulin; Z79.82 Long term (current) use of aspirin; Z79.899 Other long term (current) drug therapy; Z86.14 Personal history of Methicillin resistant Staphylococcus aureus infection; Z86.711 Personal history of pulmonary embolism; Z87.440 Personal history of urinary (tract) infections; Z88.4 Allergy status to anesthetic agent; Z95.1 Presence of aortocoronary bypass graft; Z95.5 Presence of coronary angioplasty implant and graft; Z95.810 Presence of automatic (implantable) cardiac defibrillator; Z88.1 Allergy status to other antibiotic agents; Z88.0 Allergy status to penicillin; Z88.2 Allergy status to sulfonamides; Z88.8 Allergy status to other drugs, medicaments and biological substances; Z90.49 Acquired absence of other specified parts of digestive tract
CPT/HCPCS: 36415; 70450; 71046; 74176; 74246; 80048; 80053; 81001; 82140; 82550; 82553; 83036; 83605; 83735; 83880; 84100; 84484; 85025; 85610; 85730; 87040; 87077; 87186; 87502; 93005; 94760; 96365; 96375; 99291

== ENCOUNTER 2018-01-10 16:32 | Inpatient (IN) | payer MEDICARE, OTHER ==
--- NOTE | 2018-01-10 17:32 | ED ---
General Adult HPI - General Chief complaint: Extremity Injury, Lower Stated complaint: WEEPING WOUND RT FOREARM Time Seen by Provider: 01/10/18 16:36 Source: patient, family, EMS, RN notes reviewed, old records reviewed Mode of arrival: EMS - History of Present Illness Initial comments: Chief complaint and history of present illness this is a 77-year-old female who lives in a skilled nursing. Family still having significant swelling to her arms and legs. She is on Zaroxolyn. Past history of CHF with peripheral edema and weeping skin. Currently has diabetic ulcers on her lower extremities since May. Patient reports she short of breath when she lays down. Denying chest pain. - Related Data Home Medications Medication Instructions Recorded Confirmed Allopurinol [Zyloprim] 300 mg PO DAILY@0800 04/18/17 01/10/18 Aspirin [Adult Low Dose Aspirin EC] 81 mg PO DAILY@0800 04/18/17 01/10/18 Levothyroxine Sodium 25 mcg PO DAILY@1800 04/18/17 01/10/18 Nitroglycerin Sl Tabs [Nitrostat] 0.4 mg SUBLINGUAL Q5M PRN 04/18/17 01/10/18 Cholecalciferol [Vitamin D3] 1,000 unit PO DAILY 08/11/17 01/10/18 Ferrous Sulfate [Feosol] 325 mg PO MOWEFR@1700 08/11/17 01/10/18 Meclizine [Antivert] 25 mg PO Q8H PRN 08/11/17 01/10/18 Sacubitril/Valsartan [Entresto 24 1 tab PO BID 08/11/17 01/10/18 mg-26 mg Tablet] traZODone HCL 50 mg PO HS@199908/11/17 01/10/18 Docusate [Colace] 100 mg PO BID@0800,1700 09/18/17 01/10/18 Omeprazole [PriLOSEC] 20 mg PO HS 09/18/17 01/10/18 Polyethylene Glycol 3350 [Miralax] 17 gm PO DAILY@1600 09/18/17 01/10/18 Furosemide [Lasix] 40 mg PO DIRECTED PRN 01/10/18 01/10/18 Metolazone [Zaroxolyn] 2.5 mg PO BID 01/10/18 01/10/18 Pregabalin [Lyrica] 50 mg PO BID 01/10/18 01/10/18 Previous Rx's Medication Instructions Recorded Atorvastatin [Lipitor] 20 mg PO HS tab 12/12/17 Escitalopram [Lexapro] 10 mg PO DAILY tab 12/12/17 Furosemide [Lasix] 40 mg PO DAILY tab 12/12/17 Hydrocodone/Acetaminophen [[place] 1 tab PO Q6H PRN #40 tablet 12/12/17 10-325] Insuln Asp Prt/Insulin Aspart 5 unit SQ HS@2000 vial 12/12/17 [NovoLOG MIX 70-30 VIAL] Insuln Asp Prt/Insulin Aspart 20 unit SQ DAILY@0800 vial 12/12/17 [NovoLOG MIX 70-30 VIAL] Metoprolol Tartrate [Lopressor] 25 mg PO BID tab 12/12/17 Midodrine [ProAmatine] 5 mg PO TID-W/MEALS #0 tab 12/12/17 Allergies Allergy/AdvReac Type Severity Reaction Status Date / Time Penicillins Allergy Rash/Hives Verified 01/10/18 16:55 propofol Allergy Unknown Verified 01/10/18 16:55 sulfamethoxazole AdvReac Abdominal Verified 01/10/18 16:55 [From Bactrim] Pain trimethoprim [From Bactrim] AdvReac Abdominal Verified 01/10/18 16:55 Pain Review of Systems ROS Statement: Those systems with pertinent positive or pertinent negative responses have been documented in the HPI. Review of systems no complaint of headache or visual acuity changes. She has had cataract surgery. Reports she short of breath when she lays down. She does have history of CHF and chronic A. fib as well as diabetes. The patient is not complaining of abdominal pain. No significant change in appetite. She reports she has ability bending her legs because the legs are so swollen from fluid and she's had some weeping develop on are mildly edematous forearms. The weeping is on the right arm. Patient also reports decreased urine output. All systems reviewed. Past medical problems A. fib, CHF, diabetes, hypertension, previous DE, and PE. She is also history of MRSA infections and MVR oh right leg. Surgeries include cholecystectomy, coronary bypass, heart cath with stent, pacer defibrillator and tonsillectomy. ALLERGIES propofol, penicillin, Bactrim. Patient denies smoking, no alcohol use. The patient's family history includes cancers of the uterus, breast and father had cancer of unknown type. ROS Other: All systems not noted in ROS Statement are negative. 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 Last Myocardial Infarction Date:: 2016 History of Any Multi-Drug Resistant Organisms: MRSA, Other MDRO Date of last positivie culture/infection: 04/19/11-MRSA MDRO Source:: MDRO-Right Leg; MRSA-Unknown Past Surgical History: Breast Surgery, Cholecystectomy, Coronary Bypass/CABG, Heart Catheterization, Heart Catheterization With Stent, Pacemaker, Tonsillectomy, Tubal Ligation Additional Past Surgical History / Comment(s): AICD/pacer, 3 vessel CABG 1993, 05/2017 cardiac cath with unsuccessful angioplasty diagonal branch, L leg stent done in [facility], bilateral breast reductions, L breast benign bx, R leg varicose vein stripping, bilateral lower leg debridements, PICC line now out , colonoscopy, bilateral carpal tunnel releases, laser surgery bilaterally-pt unsure for what reason. Past Anesthesia/Blood Transfusion Reactions: No Reported Reaction Additional Past Anesthesia/Blood Transfusion Reaction / Comment(s): allergic to propofol Date of Last Stent Placement:: 1993 Type of Cardiac Device: Permanent Pacemaker Device Placement Date:: 2011 upgraded per pt Past Psychological History: No Psychological Hx Reported Smoking Status: Never smoker - Past Family History Mother Family Medical History: CVA/TIA Additional Family Medical History / Comment(s): at age 43 of a stroke Father Family Medical History: Diabetes Mellitus Additional Family Medical History / Comment(s): age 81 General Exam - General Exam Comments Initial Comments: General: The patient is awake and alert, complains of being short of breath when she lays down. Complains of just general skin weeping from edematous arms and legs. Vital signs pulse 64 respiratory rate 18 pulse ox 99% room air blood pressure 115/53. Eye: Pupils are equal, round and reactive to light, extra-ocular movements are intact ; there is normal conjunctiva bilaterally. No signs of icterus. History of cataract removal. Ears, nose, mouth and throat: There are moist mucous membranes and no oral lesions. Neck: The neck is supple, there is no tenderness . Cardiovascular: There is a regular rate and rhythm. No murmur, rub or gallop is appreciated. Respiratory: Patient gets short of breath when she lays down. Crepitant rales appreciated bilaterally. Soft, non-distended, non-tender abdomen without masses or organomegaly noted. There is no rebound or guarding present. Back: There is no tenderness to palpation in the midline. There is no obvious deformity. No rashes noted. Musculoskeletal: Firm pitting edema from her feet to her hips. Also arms are edematous. Neurological: Alert and oriented, no neuro deficits. Skin: No rashes Psychiatric: Cooperative, Course Vital Signs 01/10/18 01/10/18 01/10/18 16:38 17:06 17:16 Temperature 97.8 F Pulse Rate 60 62 58 L Respiratory 18 18 18 Rate Blood Pressure 125/86 115/53 117/58 O2 Sat by Pulse 100 99 98 Oximetry 01/10/18 18:41 Temperature Pulse Rate 67 Respiratory 18 Rate Blood Pressure 122/76 O2 Sat by Pulse 97 Oximetry EKG Findings - EKG Comments: EKG Findings:: EKG was done and reviewed at 1725 showing sinus rhythm with first -degree AV block right axis deviation age undetermined anteroseptal injury. No acute ST elevation. Rate 60, PA interval is 270 QRS 124 QTc 490, QTc 490. Dr. Mccloud Medical Decision Making - Medical Decision Making Medical decision making; a 69-year-old female here family. The patient lives in a skilled nursing. Family reports for the past weeks and having progressively worsening peripheral edema including arms and legs. They noticed that some of the areas of started to weep. She's had this happen in the past. She's been on diuretics for the past week. Decreased frequency of urination as well. Patient's denying any chest pain but when she lays down she has become short of breath. Labs show white count 6.6 hemoglobin 10 hematocrit 33 with an INR 1.2. Potassium is 4.4. BUN 54 creatinine 1.2 to GFR of only 44. Glucose 139. CK normal MB normal troponins elevated 0.094. BNP elevated at 20,400. X-ray of the chest was done and reviewed by radiologist his impression is there is probably mild congestive heart failure. Right pleural effusion. Heart failure is new or increased compared to old exam as read by Dr. Moy. - Lab Data Result diagrams: 01/10/18 17:45 01/10/18 17:45 Lab Results 01/10/18 01/10/18 01/10/18 Range/Units 17:45 17:45 17:45 WBC 6.6 (3.8-10.6) k/uL RBC 3.43 L (3.80-5.40) m/uL Hgb 10.5 L (11.4-16.0) gm/dL Hct 33.6 L (34.0-46.0) % MCV 98.1 (80.0-100.0) fL MCH 30.6 (25.0-35.0) pg MCHC 31.2 (31.0-37.0) g/dL RDW 17.0 H (11.5-15.5) % Plt Count 141 L (150-450) k/uL Neutrophils % 75 % Lymphocytes % 14 % Monocytes % 6 % Eosinophils % 2 % Basophils % 1 % Neutrophils # 5.0 (1.3-7.7) k/uL Lymphocytes # 1.0 (1.0-4.8) k/uL Monocytes # 0.4 (0-1.0) k/uL Eosinophils # 0.1 (0-0.7) k/uL Basophils # 0.0 (0-0.2) k/uL Hypochromasia Moderate Anisocytosis Slight Macrocytosis Slight PT (9.0-12.0) sec INR (<1.2) APTT (22.0-30.0) sec Sodium 141 (137-145) mmol/L Potassium 4.4 (3.5-5.1) mmol/L Chloride 100 (98-107) mmol/L Carbon Dioxide 30 (22-30) mmol/L Anion Gap 11 mmol/L BUN 54 H (7-17) mg/dL Creatinine 1.20 H (0.52-1.04) mg/dL Est GFR (CKD-EPI)AfAm 50 (>60 ml/min/1.73 sqM) Est GFR (CKD-EPI)NonAf 44 (>60 ml/min/1.73 sqM) Glucose 139 H (74-99) mg/dL Calcium 9.3 (8.4-10.2) mg/dL Magnesium 2.0 (1.6-2.3) mg/dL Total Bilirubin 1.1 (0.2-1.3) mg/dL AST 26 (14-36) U/L ALT 17 (9-52) U/L Alkaline Phosphatase 212 H (38-126) U/L Total Creatine Kinase 27 L (30-135) U/L CK-MB (CK-2) 0.9 (0.0-2.4) ng/mL CK-MB (CK-2) Rel Index 3.3 Troponin I 0.094 H* (0.000-0.034) ng/mL NT-Pro-B Natriuret Pep pg/mL Total Protein 6.0 L (6.3-8.2) g/dL Albumin 3.6 (3.5-5.0) g/dL 01/10/18 01/10/18 Range/Units 17:45 17:45 WBC (3.8-10.6) k/uL RBC (3.80-5.40) m/uL Hgb (11.4-16.0) gm/dL Hct (34.0-46.0) % MCV (80.0-100.0) fL MCH (25.0-35.0) pg MCHC (31.0-37.0) g/dL RDW (11.5-15.5) % Plt Count (150-450) k/uL Neutrophils % % Lymphocytes % % Monocytes % % Eosinophils % % Basophils % % Neutrophils # (1.3-7.7) k/uL Lymphocytes # (1.0-4.8) k/uL Monocytes # (0-1.0) k/uL Eosinophils # (0-0.7) k/uL Basophils # (0-0.2) k/uL Hypochromasia Anisocytosis Macrocytosis PT 11.4 (9.0-12.0) sec INR 1.2 H (<1.2) APTT 24.2 (22.0-30.0) sec Sodium (137-145) mmol/L Potassium (3.5-5.1) mmol/L Chloride (98-107) mmol/L Carbon Dioxide (22-30) mmol/L Anion Gap mmol/L BUN (7-17) mg/dL Creatinine (0.52-1.04) mg/dL Est GFR (CKD-EPI)AfAm (>60 ml/min/1.73 sqM) Est GFR (CKD-EPI)NonAf (>60 ml/min/1.73 sqM) Glucose (74-99) mg/dL Calcium (8.4-10.2) mg/dL Magnesium (1.6-2.3) mg/dL Total Bilirubin (0.2-1.3) mg/dL AST (14-36) U/L ALT (9-52) U/L Alkaline Phosphatase (38-126) U/L Total Creatine Kinase (30-135) U/L CK-MB (CK-2) (0.0-2.4) ng/mL CK-MB (CK-2) Rel Index Troponin I (0.000-0.034) ng/mL NT-Pro-B Natriuret Pep 44995 pg/mL Total Protein (6.3-8.2) g/dL Albumin (3.5-5.0) g/dL Disposition Clinical Impression: Congestive heart failure, Chronic renal failure, stage 3 (moderate), Elevated troponin I level Disposition: ADMITTED IP TO THIS HOSP Condition: Serious Is patient prescribed a controlled substance at d/c from ED?: No When asked, does pt state using other controlled substances?: No Referrals: Aneta Berger MD [Primary Care Provider] - 1-2 days
[2018-01-10 18:20] LABS: Anisocytosis Slight; Basophils % (A) 1 %; Eosinophils # (A) 0.1 k/uL (0-0.7); Eosinophils % (A) 2 %; HCT 33.6 % (34.0-46.0); HGB 10.5 gm/dL (11.4-16.0); Hypochromasia Moderate; Lymphocytes % (A) 14 %; MCH 30.6 pg (25.0-35.0); MCHC 31.2 g/dL (31.0-37.0); MCV 98.1 fL (80.0-100.0); Macrocytosis Slight; Mean Platelet Volume 9.2; Monocytes # (A) 0.4 k/uL (0-1.0); Monocytes % (A) 6 %; Neutrophils % (A) 75 %; Platelet Count 141 k/uL (150-450); RBC 3.43 m/uL (3.80-5.40); WBC 6.6 k/uL (3.8-10.6)
[2018-01-10 18:30] LABS: Albumin 3.6 g/dL (3.5-5.0); Calcium 9.3 mg/dL (8.4-10.2); Potassium 4.4 mmol/L (3.5-5.1); Total Bilirubin 1.1 mg/dL (0.2-1.3)
[2018-01-10 18:42] LABS: INR 1.2 (<1.2); Partial Thromboplastin Time 24.2 sec (22.0-30.0); Prothrombin Time 11.4 sec (9.0-12.0)
[2018-01-10 18:49] LABS: Creatine Kinase MB 0.9 ng/mL (0.0-2.4)
[2018-01-10 18:52] LABS: Troponin I 0.094 ng/mL (0.000-0.034)
--- NOTE | 2018-01-10 19:22 | XR ---
EXAMINATION TYPE: XR chest 2V DATE OF EXAM: 01/10/2018 COMPARISON: 12/05/2017 HISTORY: Short of breath TECHNIQUE: Frontal and lateral views of the chest are obtained. FINDINGS: Heart is enlarged. There is mild pulmonary congestion. There is some blunting of the costo phrenic angles. This is more on the right side. There is some fluid in the major fissure on the right side. There is a left axillary pacemaker with the lead tips in the right ventricle. There are sterna l wires. IMPRESSION: There is probably mild congestive heart failure. Right pleural effusion. Heart failure i s new or increased compared to old exam.
[2018-01-10] MEDS ORDERED: FUROSEMIDE 10 MG/ML 4 ML VIAL IV STA (19:24)
[2018-01-10] MEDS ORDERED: NALOXONE 0.4 MG/ML 1 ML VIAL IV PRN (19:28)
[2018-01-10] MEDS ORDERED: ACETAMINOPHEN TAB 325 MG TAB PO PRN (19:28)
[2018-01-10] MEDS ORDERED: HYDROcodone/APAP 10-325MG 1 EACH TAB PO PRN (19:34)
[2018-01-10] MEDS ORDERED: MECLIZINE 25 MG TAB PO PRN (19:34)
[2018-01-10 21:42] LABS: Glucose,Whole Blood 117 mg/dL (75-99)
[2018-01-10] MEDS: SODIUM CHLORIDE 0.9% 1,000 ML IV SCH (23:20)
[2018-01-10] MEDS: INSULN ASP PRT/INSULIN ASPART 100 UNIT/ML 10 ML VIAL SQ SCH (23:20)
[2018-01-10] MEDS: ATORVASTATIN 20 MG TAB PO SCH (23:21)
[2018-01-10] MEDS: METOPROLOL TARTRATE 25 MG TAB PO SCH (23:21)
[2018-01-10] MEDS: METOLAZONE 2.5 MG TAB PO SCH (23:21)
[2018-01-10] MEDS: traZODone HCL 50 MG TAB PO SCH (23:21)
[2018-01-10] MEDS: SACUBITRIL/VALSARTAN 24 MG-26 MG TABLET PO SCH (23:22)
[2018-01-10] MEDS: PREGABALIN 50 MG CAP PO SCH (23:25)
[2018-01-11 00:19] LABS: Troponin I 0.073 ng/mL (0.000-0.034)
[2018-01-11 06:12] LABS: Glucose,Whole Blood 131 mg/dL (75-99)
[2018-01-11] MEDS: MIDODRINE 5 MG TAB PO SCH ×3 (06:19→17:16)
[2018-01-11 06:42] LABS: Creatine Kinase MB 0.6 ng/mL (0.0-2.4)
[2018-01-11 06:47] LABS: Troponin I 0.072 ng/mL (0.000-0.034)
--- NOTE | 2018-01-11 08:48 | P.NPCON ---
History of Present Illness - Reason for Consult acute renal failure - History of Present Illness Reason for consultation: Acute kidney injury on chronic kidney disease History of present illness: Patient is a 77-year-old female seen in renal consultation for acute kidney injury and chronic kidney disease. Patient has chronic kidney disease stage III with baseline creatinine near 1-1.1. Creatinine was 1.2 admission and labs from today are pending. Patient presented to the hospital with dyspnea and edema. She does have systolic heart failure with ejection fraction of 20-25% with severe tricuspid regurgitation. Patient states she gained about 30 pounds over the last 1 month. States she's having difficulty walking due to the swelling. Her urinalysis from last month was quite benign. She does have history of diabetes mellitus. She has received 1 dose of IV Lasix and is also maintained on metolazone 2.5 mg twice daily at this time. Denies regular use of NSAIDs. No hematuria or dysuria. She has been waiting. No vomiting or diarrhea. Vital signs are stable. General: The patient appeared well nourished and normally developed. HEENT: Head exam is unremarkable. Neck is without jugular venous distension. LUNGS: Lungs are clear to auscultation and percussion. Breath sounds decreased. HEART: Rate and Rhythm are regular. First and second heart sounds normal. No murmurs, rubs or gallops. ABDOMEN: Abdominal exam reveals normal bowel sounds. Non-tender and non- distended. No evidence of peritonitis. EXTREMITITES: 1+ edema. 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 Last Myocardial Infarction Date:: 2016 History of Any Multi-Drug Resistant Organisms: MRSA, Other MDRO Date of last positivie culture/infection: 04/19/11-MRSA MDRO Source:: MDRO-Right Leg; MRSA-Unknown Past Surgical History: Breast Surgery, Cholecystectomy, Coronary Bypass/CABG, Heart Catheterization, Heart Catheterization With Stent, Pacemaker, Tonsillectomy, Tubal Ligation Additional Past Surgical History / Comment(s): AICD/pacer, 3 vessel CABG 1993, 05/2017 cardiac cath with unsuccessful angioplasty diagonal branch, L leg stent done in [facility], bilateral breast reductions, L breast benign bx, R leg varicose vein stripping, bilateral lower leg debridements, PICC line now out , colonoscopy, bilateral carpal tunnel releases, laser surgery bilaterally-pt unsure for what reason. Past Anesthesia/Blood Transfusion Reactions: No Reported Reaction Additional Past Anesthesia/Blood Transfusion Reaction / Comment(s): allergic to propofol Date of Last Stent Placement:: 1993 Type of Cardiac Device: Permanent Pacemaker Device Placement Date:: 2011 upgraded per pt Past Psychological History: No Psychological Hx Reported Additional Psychological History / Comment(s): for 15 years, retired, lifelong nonsmoker, No experience, No international travel. Has a pet bird, parakeet at home, grandchildren are caring for it. No change in the home environment. Pt resides at [facility]. She is assisted into a wheelchair. She wears O2 at 2L/NC at HS. She feeds herself and needs assist with all other ADLs. Smoking Status: Never smoker Past Alcohol Use History: None Reported Past Drug Use History: None Reported - Past Family History Mother Family Medical History: CVA/TIA Additional Family Medical History / Comment(s): at age 43 of a stroke Father Family Medical History: Diabetes Mellitus Additional Family Medical History / Comment(s): age 81 Medications and Allergies Home Medications Medication Instructions Recorded Confirmed Type Allopurinol [Zyloprim] 300 mg PO DAILY@0800 04/18/17 01/10/18 History Aspirin [Adult Low Dose Aspirin EC] 81 mg PO DAILY@0800 04/18/17 01/10/18 History Levothyroxine Sodium 25 mcg PO DAILY@1800 04/18/17 01/10/18 History Nitroglycerin Sl Tabs [Nitrostat] 0.4 mg SUBLINGUAL Q5M PRN 04/18/17 01/10/18 History Cholecalciferol [Vitamin D3] 1,000 unit PO DAILY 08/11/17 01/10/18 History Ferrous Sulfate [Feosol] 325 mg PO MOWEFR@1700 08/11/17 01/10/18 History Meclizine [Antivert] 25 mg PO Q8H PRN 08/11/17 01/10/18 History Sacubitril/Valsartan [Entresto 24 1 tab PO BID 08/11/17 01/10/18 History mg-26 mg Tablet] traZODone HCL 50 mg PO HS@199908/11/17 01/10/18 History Docusate [Colace] 100 mg PO BID@0800,1700 09/18/17 01/10/18 History Omeprazole [PriLOSEC] 20 mg PO HS 09/18/17 01/10/18 History Polyethylene Glycol 3350 [Miralax] 17 gm PO DAILY@1600 09/18/17 01/10/18 History Atorvastatin [Lipitor] 20 mg PO HS tab 12/12/17 01/10/18 Rx Escitalopram [Lexapro] 10 mg PO DAILY tab 12/12/17 01/10/18 Rx Furosemide [Lasix] 40 mg PO DAILY tab 12/12/17 01/10/18 Rx Hydrocodone/Acetaminophen [[place] 1 tab PO Q6H PRN #40 tablet 12/12/17 01/10/18 Rx 10-325] Insuln Asp Prt/Insulin Aspart 5 unit SQ HS@1999 vial 12/12/17 01/10/18 Rx [NovoLOG MIX 70-30 VIAL] Insuln Asp Prt/Insulin Aspart 20 unit SQ DAILY@0800 vial 12/12/17 01/10/18 Rx [NovoLOG MIX 70-30 VIAL] Metoprolol Tartrate [Lopressor] 25 mg PO BID tab 12/12/17 01/10/18 Rx Midodrine [ProAmatine] 5 mg PO TID-W/MEALS #0 tab 12/12/17 01/10/18 Rx Furosemide [Lasix] 40 mg PO DIRECTED PRN 01/10/18 01/10/18 History Metolazone [Zaroxolyn] 2.5 mg PO BID 01/10/18 01/10/18 History Pregabalin [Lyrica] 50 mg PO BID 01/10/18 01/10/18 History Allergies Allergy/AdvReac Type Severity Reaction Status Date / Time Penicillins Allergy Rash/Hives Verified 01/10/18 16:55 propofol Allergy Unknown Verified 01/10/18 16:55 sulfamethoxazole AdvReac Abdominal Verified 01/10/18 16:55 [From Bactrim] Pain trimethoprim [From Bactrim] AdvReac Abdominal Verified 01/10/18 16:55 Pain Physical Exam Vitals: Vital Signs Temp Pulse Pulse Resp BP BP Pulse Ox 01/11/18 04:00 98.0 F 60 18 124/88 99 01/11/18 00:00 98.8 F 60 16 127/69 96 01/10/18 19:50 98.4 F 66 16 127/69 95 01/10/18 19:47 97.9 F 61 16 125/59 97 01/10/18 18:41 67 18 122/76 97 01/10/18 17:16 58 L 18 117/58 98 01/10/18 17:06 62 18 115/53 99 01/10/18 16:38 97.8 F 60 18 125/86 100 Intake and Output 01/10/18 01/11/18 01/11/18 22:59 06:59 14:59 Intake Total 135 300 Balance 135 300 Intake: IV 20 Invasive Line 1 20 Intake, IV Titration 40 Amount Sodium Chloride 0.9% 1, 40 000 ml @ 20 mls/hr IV . Q24H [facility] Rx#:[id number] Oral 75 300 Other: Voiding Method Diaper # Voids 1 Weight 87.5 kg 94 kg Results - Lab Results Most recent lab results Calcium 9.3 mg/dL (8.4-10.2) 01/10/18 17:45 Magnesium 2.0 mg/dL (1.6-2.3) 01/10/18 17:45 01/10/18 17:45 01/10/18 17:45 Assessment and Plan Plan: Assessment: #1. Mild nonoliguric acute kidney injury mostly prerenal secondary to cardiorenal syndrome. Creatinine 1.2 on admission. Labs from today are pending at this time. #2. Chronic kidney disease stage III secondary to cardiorenal syndrome with baseline creatinine in the range of 1-1.1. #3. Systolic CHF with ejection fraction of 20-25% with severe tricuspid regurgitation. #4. Volume overload. #5. Insulin-dependent diabetes mellitus. Plan: Start Lasix 40 mg IV twice daily. Maintain metolazone 2.5 mg twice daily. Low-salt diet. 1.5 L fluid restriction. Follow-up morning labs. Repeat electrolytes in the morning. Avoid nephrotoxic agents and hypotensive episodes. Thank you for the consultation. I will continue to follow the patient with you during her hospital stay.
[2018-01-11 08:58] LABS: Magnesium 1.8 mg/dL (1.6-2.3); Potassium 4.4 mmol/L (3.5-5.1)
[2018-01-11] MEDS: ALLOPURINOL 300 MG TAB PO SCH (09:12)
[2018-01-11] MEDS: METOPROLOL TARTRATE 25 MG TAB PO SCH ×2 (09:12→20:21)
[2018-01-11] MEDS: SACUBITRIL/VALSARTAN 24 MG-26 MG TABLET PO SCH ×2 (09:12→20:21)
[2018-01-11] MEDS: DOCUSATE 100 MG CAP PO SCH ×2 (09:12→14:37)
[2018-01-11] MEDS: ESCITALOPRAM 10 MG TAB PO SCH (09:12)
[2018-01-11] MEDS: METOLAZONE 2.5 MG TAB PO SCH ×2 (09:12→20:22)
[2018-01-11] MEDS: ASPIRIN 81 MG PO SCH (09:12)
[2018-01-11] MEDS: INSULN ASP PRT/INSULIN ASPART 100 UNIT/ML 10 ML VIAL SQ SCH ×2 (09:22→20:26)
[2018-01-11] MEDS: PREGABALIN 50 MG CAP PO SCH ×2 (09:22→20:26)
[2018-01-11] MEDS: FUROSEMIDE 10 MG/ML 4 ML VIAL IV SCH ×2 (09:23→20:15)
[2018-01-11 11:43] LABS: Glucose,Whole Blood 194 mg/dL (75-99)
[2018-01-11] MEDS: CHOLECALCIFEROL 1,000 UNIT TAB PO SCH (12:26)
[2018-01-11] MEDS: POLYETHYLENE GLYCOL 3350 17 GM POWD.PACK PO SCH (12:36)
--- NOTE | 2018-01-11 12:57 | P.CRDCN ---
History of Present Illness Consult date: 01/11/18 Requesting physician: Aneta Berger Consult reason: congestive heart failure Chief complaint: Shortness of breath and swelling History of present illness: This is a pleasant 77-year-old female who follows regularly with Dr. Wall in the office. She has past history significant for coronary artery disease and prior bypass surgery, patient also has history of prior stent placement, paroxysmal atrial fibrillation, ischemic cardiomyopathy with prior AICD, systolic congestive heart failure, diabetes, hypertension, hyperlipidemia kidney disease stage III, history of prior ventricular tachycardia. She currently resides at [facility]. Admitted to the hospital with symptoms of progressively worsening shortness of breath and significant peripheral edema. According to the daughter over the past 2 weeks or more the symptoms have been worsening. According to the daughter, they've been giving her metolazone twice a day. Of her Lasix, and she still has continued to put on weight. For this reason she came to the emergency room for further evaluation. EKG on arrival shows a normal sinus rhythm with nonspecific ST-T wave changes. Chest x-ray shows mild congestive heart failure with right pleural effusion. Blood pressure 110/68 with a heart rate in the 60s, respirations 18. White blood cell count 6.6, hemoglobin 10.5, platelet count 141. Sodium 141, potassium 4.4, BUN 52, creatinine 1.1. Mag 1.8. Troponins 0.09, 0.07, 0.07. BNP level 20,400. Patient was initiated on IV Lasix in the emergency room, continued on Zaroxolyn 2.5 twice a day. 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 Last Myocardial Infarction Date:: 2016 History of Any Multi-Drug Resistant Organisms: MRSA, Other MDRO Date of last positivie culture/infection: 04/19/11-MRSA MDRO Source:: MDRO-Right Leg; MRSA-Unknown Past Surgical History: Breast Surgery, Cholecystectomy, Coronary Bypass/CABG, Heart Catheterization, Heart Catheterization With Stent, Pacemaker, Tonsillectomy, Tubal Ligation Additional Past Surgical History / Comment(s): AICD/pacer, 3 vessel CABG 1993, 05/2017 cardiac cath with unsuccessful angioplasty diagonal branch, L leg stent done in [facility], bilateral breast reductions, L breast benign bx, R leg varicose vein stripping, bilateral lower leg debridements, PICC line now out , colonoscopy, bilateral carpal tunnel releases, laser surgery bilaterally-pt unsure for what reason. Past Anesthesia/Blood Transfusion Reactions: No Reported Reaction Additional Past Anesthesia/Blood Transfusion Reaction / Comment(s): allergic to propofol Date of Last Stent Placement:: 1993 Type of Cardiac Device: Permanent Pacemaker Device Placement Date:: 2011 upgraded per pt Past Psychological History: No Psychological Hx Reported Additional Psychological History / Comment(s): for 15 years, retired, lifelong nonsmoker, No experience, No international travel. Has a pet bird, parakeet at home, grandchildren are caring for it. No change in the home environment. Pt resides at [facility]. She is assisted into a wheelchair. She wears O2 at 2L/NC at HS. She feeds herself and needs assist with all other ADLs. Smoking Status: Never smoker Past Alcohol Use History: None Reported Past Drug Use History: None Reported - Past Family History Mother Family Medical History: CVA/TIA Additional Family Medical History / Comment(s): at age 43 of a stroke Father Family Medical History: Diabetes Mellitus Additional Family Medical History / Comment(s): age 81 Medications and Allergies Home Medications Medication Instructions Recorded Confirmed Type Allopurinol [Zyloprim] 300 mg PO DAILY@0800 04/18/17 01/10/18 History Aspirin [Adult Low Dose Aspirin EC] 81 mg PO DAILY@0800 04/18/17 01/10/18 History Levothyroxine Sodium 25 mcg PO DAILY@1800 04/18/17 01/10/18 History Nitroglycerin Sl Tabs [Nitrostat] 0.4 mg SUBLINGUAL Q5M PRN 04/18/17 01/10/18 History Cholecalciferol [Vitamin D3] 1,000 unit PO DAILY 08/11/17 01/10/18 History Ferrous Sulfate [Feosol] 325 mg PO MOWEFR@1700 08/11/17 01/10/18 History Meclizine [Antivert] 25 mg PO Q8H PRN 08/11/17 01/10/18 History Sacubitril/Valsartan [Entresto 24 1 tab PO BID 08/11/17 01/10/18 History mg-26 mg Tablet] traZODone HCL 50 mg PO HS@2000 08/11/17 01/10/18 History Docusate [Colace] 100 mg PO BID@0800,1700 09/18/17 01/10/18 History Omeprazole [PriLOSEC] 20 mg PO HS 09/18/17 01/10/18 History Polyethylene Glycol 3350 [Miralax] 17 gm PO DAILY@1600 09/18/17 01/10/18 History Atorvastatin [Lipitor] 20 mg PO HS tab 12/12/17 01/10/18 Rx Escitalopram [Lexapro] 10 mg PO DAILY tab 12/12/17 01/10/18 Rx Furosemide [Lasix] 40 mg PO DAILY tab 12/12/17 01/10/18 Rx Hydrocodone/Acetaminophen [[place] 1 tab PO Q6H PRN #40 tablet 12/12/17 01/10/18 Rx 10-325] Insuln Asp Prt/Insulin Aspart 5 unit SQ HS@2000 vial 12/12/17 01/10/18 Rx [NovoLOG MIX 70-30 VIAL] Insuln Asp Prt/Insulin Aspart 20 unit SQ DAILY@0800 vial 12/12/17 01/10/18 Rx [NovoLOG MIX 70-30 VIAL] Metoprolol Tartrate [Lopressor] 25 mg PO BID tab 12/12/17 01/10/18 Rx Midodrine [ProAmatine] 5 mg PO TID-W/MEALS #0 tab 12/12/17 01/10/18 Rx Furosemide [Lasix] 40 mg PO DIRECTED PRN 01/10/18 01/10/18 History Metolazone [Zaroxolyn] 2.5 mg PO BID 01/10/18 01/10/18 History Pregabalin [Lyrica] 50 mg PO BID 01/10/18 01/10/18 History Allergies Allergy/AdvReac Type Severity Reaction Status Date / Time Penicillins Allergy Rash/Hives Verified 01/10/18 16:55 propofol Allergy Unknown Verified 01/10/18 16:55 sulfamethoxazole AdvReac Abdominal Verified 01/10/18 16:55 [From Bactrim] Pain trimethoprim [From Bactrim] AdvReac Abdominal Verified 01/10/18 16:55 Pain Physical Exam Vitals: Vital Signs Temp Pulse Pulse Resp BP BP Pulse Ox 01/11/18 09:05 96.6 F L 68 18 111/68 94 L 01/11/18 09:00 68 18 01/11/18 04:00 98.0 F 60 18 124/88 99 01/11/18 00:00 98.8 F 60 16 127/69 96 01/10/18 19:50 98.4 F 66 16 127/69 95 01/10/18 19:47 97.9 F 61 16 125/59 97 01/10/18 18:41 67 18 122/76 97 01/10/18 17:16 58 L 18 117/58 98 01/10/18 17:06 62 18 115/53 99 01/10/18 16:38 97.8 F 60 18 125/86 100 Intake and Output 01/10/18 01/11/18 01/11/18 22:59 06:59 14:59 Intake Total 135 320 Balance 135 320 Intake: IV 20 20 Invasive Line 1 20 20 Intake, IV Titration 40 Amount Sodium Chloride 0.9% 1, 40 000 ml @ 20 mls/hr IV . Q24H [facility] Rx#:[id number] Oral 75 300 Other: Voiding Method Diaper Diaper # Voids 1 Weight 87.5 kg 94 kg PHYSICAL EXAMINATION: HEENT: Head is atraumatic, normocephalic. Pupils equal, round. Neck is supple. There is elevated jugular venous pressure. HEART EXAMINATION: Heart S1 and S2 systolic ejection murmur is heard. CHEST EXAMINATION: Lungs reveal rales to bilateral bases with diminished air entry to the bases. ABDOMEN: Soft, mildly distended, mild tenderness noted . Bowel sounds are heard. . EXTREMITIES:[ 2+ peripheral pulses with evidence of peripheral edema , bilateral dressings in place to the lower extremities. NEUROLOGIC patient is awake, alert and oriented -3. . Results 01/10/18 17:45 01/11/18 05:15 Cardiac Enzymes 01/10/18 01/10/18 01/10/18 Range/Units 17:45 17:45 23:35 AST 26 (14-36) U/L CK-MB (CK-2) 0.9 1.0 (0.0-2.4) ng/mL Troponin I 0.094 H* 0.073 H* (0.000-0.034) ng/mL 01/11/18 Range/Units 05:18 AST (14-36) U/L CK-MB (CK-2) 0.6 (0.0-2.4) ng/mL Troponin I 0.072 H* (0.000-0.034) ng/mL Coagulation 01/10/18 Range/Units 17:45 PT 11.4 (9.0-12.0) sec APTT 24.2 (22.0-30.0) sec CBC 01/10/18 Range/Units 17:45 WBC 6.6 (3.8-10.6) k/uL RBC 3.43 L (3.80-5.40) m/uL Hgb 10.5 L (11.4-16.0) gm/dL Hct 33.6 L (34.0-46.0) % Plt Count 141 L (150-450) k/uL Comprehensive Metabolic Panel 01/10/18 01/11/18 Range/Units 17:45 05:15 Sodium 141 141 (137-145) mmol/L Potassium 4.4 4.4 (3.5-5.1) mmol/L Chloride 100 101 (98-107) mmol/L Carbon Dioxide 30 28 (22-30) mmol/L BUN 54 H 52 H (7-17) mg/dL Creatinine 1.20 H 1.14 H (0.52-1.04) mg/dL Glucose 139 H 120 H (74-99) mg/dL Calcium 9.3 9.0 (8.4-10.2) mg/dL AST 26 (14-36) U/L ALT 17 (9-52) U/L Alkaline Phosphatase 212 H (38-126) U/L Total Protein 6.0 L (6.3-8.2) g/dL Albumin 3.6 (3.5-5.0) g/dL Current Medications Generic Name Dose Route Start Last Admin Trade Name Freq PRN Reason Stop Dose Admin Acetaminophen 650 mg 01/10/18 19:28 Tylenol Tab PO Q6HR PRN Mild Pain or Fever > 100.5 Hydrocodone Bitart/Acetaminophen 1 each 01/10/18 19:34 [place] 10 PO Q6H PRN Pain Allopurinol 300 mg 01/11/18 08:00 01/11/18 09:12 Zyloprim PO 300 mg DAILY@0800 [facility] Administration Aspirin 81 mg 01/11/18 08:00 01/11/18 09:12 Aspirin PO 81 mg DAILY@0800 [facility] Administration Atorvastatin Calcium 20 mg 01/10/18 21:00 01/10/18 23:21 Lipitor PO 20 mg HS [facility] Administration Cholecalciferol 1,000 unit 01/11/18 12:00 01/11/18 12:26 Vitamin D3 PO 1,000 unit DAILY@1200 [facility] Administration Docusate Sodium 100 mg 01/11/18 08:00 01/11/18 09:12 Colace PO 100 mg BID@0800,1700 [facility] Administration Escitalopram Oxalate 10 mg 01/11/18 09:00 01/11/18 09:12 Lexapro PO 10 mg DAILY [facility] Administration Ferrous Sulfate 325 mg 01/11/18 17:00 Feosol PO MOWEFR@1700 [facility] Furosemide 40 mg 01/11/18 09:00 01/11/18 09:23 Lasix IV 40 mg Q12HR [facility] Administration Sodium Chloride 1,000 mls @ 20 mls/hr 01/10/18 19:30 01/10/18 23:20 Saline 0.9% IV 20 mls/hr .Q24H [facility] Administration Insulin Aspart 5 unit 01/10/18 20:00 01/10/18 23:20 Novolog Mix 70-30 Vial SQ Not Given HS@2000 [facility] Insulin Aspart 20 unit 01/11/18 08:00 01/11/18 09:22 Novolog Mix 70-30 Vial SQ 20 unit DAILY@0800 [facility] Administration Levothyroxine Sodium 25 mcg 01/11/18 18:00 Synthroid PO DAILY@1800 [facility] Meclizine HCl 25 mg 01/10/18 19:34 01/11/18 10:45 Antivert PO 25 mg Q8H PRN Administration Nausea Metolazone 2.5 mg 01/10/18 21:00 01/11/18 09:12 Zaroxolyn PO 2.5 mg BID [facility]UD[facility] Administration Metoprolol Tartrate 25 mg 01/10/18 21:00 01/11/18 09:12 Lopressor PO 25 mg BID [facility] Administration Midodrine 5 mg 01/11/18 07:30 01/11/18 12:26 Proamatine PO 5 mg TID-W/MEALS [facility]UD[facility] Administration Naloxone HCl 0.2 mg 01/10/18 19:28 Narcan IV Q2M PRN Opioid Reversal Polyethylene Glycol 17 gm 01/11/18 16:00 Miralax PO DAILY@1600 [facility] Pregabalin 50 mg 01/10/18 21:00 01/11/18 09:22 Lyrica PO 50 mg BID [facility] Administration Sacubitril/Valsartan 1 each 01/10/18 21:00 01/11/18 09:12 Entresto 24 Mg-26 Mg Tablet PO 1 each BID [facility] Administration Trazodone HCl 50 mg 01/10/18 20:00 01/10/18 23:21 Desyrel PO 50 mg HS@2000 [facility]UD[facility] Administration Intake and Output 01/10/18 01/11/18 01/11/18 22:59 06:59 14:59 Intake Total 135 320 Balance 135 320 Intake: IV 20 20 Invasive Line 1 20 20 Intake, IV Titration 40 Amount Sodium Chloride 0.9% 1, 40 000 ml @ 20 mls/hr IV . Q24H [facility] Rx#:[id number] Oral 75 300 Other: Voiding Method Diaper Diaper # Voids 1 Weight 87.5 kg 94 kg 01/10/18 17:45 01/11/18 05:15 EKG Interpretations (text) EKG shows normal sinus rhythm with first-degree AV block Assessment and Plan Assessment: Assessment and plan #1 systolic congestive heart failure acute on chronic #2 acute on chronic renal failure #3 coronary artery disease with prior bypass surgery and PCI #4 diabetes #5 hypertension #6 ischemic cardiomyopathy with prior AICD #7 hyperlipidemia #8 peripheral vascular disease #9 paroxysmal atrial fibrillation, on Eliquis for anticoagulation Plan From cardiology's perspective, we will recommend to continue current dose of IV Lasix along with Zaroxolyn. We'll also start the patient on a milrinone drip. Obtain repeat echocardiogram with Doppler study. Most recent echocardiogram with Doppler study was performed in May 2017 which revealed an ejection fraction of 35% monitor intake and output along with daily weights and daily lytes BUN and creatinine. DNP note has been reviewed, I agree with a documented findings and plan of care. Patient was seen and examined.
--- NOTE | 2018-01-11 13:12 | P.HPIM ---
History of Present Illness H&P Date: 01/11/18 Chief Complaint: Worsening edema This is a 77-year-old female with past medical history noted below significant for severe and chronic heart failure who presented from the skilled nursing with worsening edema. Patient and her daughter state that the edema was getting worse over the past several weeks. Recently Zaroxolyn was added to her regimen. Patient continues to gain weight. Her edema was up to the hip. She presented to the emergency room for further evaluation. She was noted to have a significantly elevated BNP compared to her last visit. Chest x-ray showed some venous congestion. Patient was admitted to the hospital for further evaluation. She is currently on IV Lasix and IV milrinone. Her blood pressure is borderline low which is chronic for her. Review of Systems Review of system: 14 points review of systems were obtained and were negative except to what were mentioned in the HPI. 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 Last Myocardial Infarction Date:: 2016 History of Any Multi-Drug Resistant Organisms: MRSA, Other MDRO Date of last positivie culture/infection: 04/19/11-MRSA MDRO Source:: MDRO-Right Leg; MRSA-Unknown Past Surgical History: Breast Surgery, Cholecystectomy, Coronary Bypass/CABG, Heart Catheterization, Heart Catheterization With Stent, Pacemaker, Tonsillectomy, Tubal Ligation Additional Past Surgical History / Comment(s): AICD/pacer, 3 vessel CABG 1993, 05/2017 cardiac cath with unsuccessful angioplasty diagonal branch, L leg stent done in [facility], bilateral breast reductions, L breast benign bx, R leg varicose vein stripping, bilateral lower leg debridements, PICC line now out , colonoscopy, bilateral carpal tunnel releases, laser surgery bilaterally-pt unsure for what reason. Past Anesthesia/Blood Transfusion Reactions: No Reported Reaction Additional Past Anesthesia/Blood Transfusion Reaction / Comment(s): allergic to propofol Date of Last Stent Placement:: 1993 Type of Cardiac Device: Permanent Pacemaker Device Placement Date:: 2011 upgraded per pt Past Psychological History: No Psychological Hx Reported Additional Psychological History / Comment(s): for 15 years, retired, lifelong nonsmoker, No experience, No international travel. Has a pet bird, parakeet at home, grandchildren are caring for it. No change in the home environment. Pt resides at [facility]. She is assisted into a wheelchair. She wears O2 at 2L/NC at HS. She feeds herself and needs assist with all other ADLs. Smoking Status: Never smoker Past Alcohol Use History: None Reported Past Drug Use History: None Reported - Past Family History Mother Family Medical History: CVA/TIA Additional Family Medical History / Comment(s): at age 43 of a stroke Father Family Medical History: Diabetes Mellitus Additional Family Medical History / Comment(s): age 81 Medications and Allergies Home Medications Medication Instructions Recorded Confirmed Type Allopurinol [Zyloprim] 300 mg PO DAILY@0800 04/18/17 01/10/18 History Aspirin [Adult Low Dose Aspirin EC] 81 mg PO DAILY@0800 04/18/17 01/10/18 History Levothyroxine Sodium 25 mcg PO DAILY@1800 04/18/17 01/10/18 History Nitroglycerin Sl Tabs [Nitrostat] 0.4 mg SUBLINGUAL Q5M PRN 04/18/17 01/10/18 History Cholecalciferol [Vitamin D3] 1,000 unit PO DAILY 08/11/17 01/10/18 History Ferrous Sulfate [Feosol] 325 mg PO MOWEFR@1700 08/11/17 01/10/18 History Meclizine [Antivert] 25 mg PO Q8H PRN 08/11/17 01/10/18 History Sacubitril/Valsartan [Entresto 24 1 tab PO BID 08/11/17 01/10/18 History mg-26 mg Tablet] traZODone HCL 50 mg PO HS@2000 08/11/17 01/10/18 History Docusate [Colace] 100 mg PO BID@0800,1700 09/18/17 01/10/18 History Omeprazole [PriLOSEC] 20 mg PO HS 09/18/17 01/10/18 History Polyethylene Glycol 3350 [Miralax] 17 gm PO DAILY@1600 09/18/17 01/10/18 History Atorvastatin [Lipitor] 20 mg PO HS tab 12/12/17 01/10/18 Rx Escitalopram [Lexapro] 10 mg PO DAILY tab 12/12/17 01/10/18 Rx Furosemide [Lasix] 40 mg PO DAILY tab 12/12/17 01/10/18 Rx Hydrocodone/Acetaminophen [[place] 1 tab PO Q6H PRN #40 tablet 12/12/17 01/10/18 Rx 10-325] Insuln Asp Prt/Insulin Aspart 5 unit SQ HS@2000 vial 12/12/17 01/10/18 Rx [NovoLOG MIX 70-30 VIAL] Insuln Asp Prt/Insulin Aspart 20 unit SQ DAILY@0800 vial 12/12/17 01/10/18 Rx [NovoLOG MIX 70-30 VIAL] Metoprolol Tartrate [Lopressor] 25 mg PO BID tab 12/12/17 01/10/18 Rx Midodrine [ProAmatine] 5 mg PO TID-W/MEALS #0 tab 12/12/17 01/10/18 Rx Furosemide [Lasix] 40 mg PO DIRECTED PRN 01/10/18 01/10/18 History Metolazone [Zaroxolyn] 2.5 mg PO BID 01/10/18 01/10/18 History Pregabalin [Lyrica] 50 mg PO BID 01/10/18 01/10/18 History Allergies Allergy/AdvReac Type Severity Reaction Status Date / Time Penicillins Allergy Rash/Hives Verified 01/10/18 16:55 propofol Allergy Unknown Verified 01/10/18 16:55 sulfamethoxazole AdvReac Abdominal Verified 01/10/18 16:55 [From Bactrim] Pain trimethoprim [From Bactrim] AdvReac Abdominal Verified 01/10/18 16:55 Pain Physical Exam Vitals: Vital Signs Temp Pulse Pulse Resp BP BP Pulse Ox 01/11/18 12:25 70 18 114/70 100 01/11/18 09:05 96.6 F L 68 18 111/68 94 L 01/11/18 09:00 68 18 01/11/18 04:00 98.0 F 60 18 124/88 99 01/11/18 00:00 98.8 F 60 16 127/69 96 01/10/18 19:50 98.4 F 66 16 127/69 95 01/10/18 19:47 97.9 F 61 16 125/59 97 01/10/18 18:41 67 18 122/76 97 01/10/18 17:16 58 L 18 117/58 98 01/10/18 17:06 62 18 115/53 99 01/10/18 16:38 97.8 F 60 18 125/86 100 Intake and Output 01/10/18 01/11/18 01/11/18 22:59 06:59 14:59 Intake Total 135 340 Balance 135 340 Intake: IV 20 40 Invasive Line 1 20 40 Intake, IV Titration 40 Amount Sodium Chloride 0.9% 1, 40 000 ml @ 20 mls/hr IV . Q24H [facility] Rx#:[id number] Oral 75 300 Other: Voiding Method Diaper Diaper # Voids 1 Weight 87.5 kg 94 kg General: The patient is awake and alert, in no distress Eye: there is normal conjunctiva bilaterally. Neck: The neck is supple, there is no JVD. Cardiovascular: Normal S1-S2, no S3-S4, no murmurs. Respiratory: Lungs clear to auscultation bilaterally Gastrointestinal: Abdomen is soft, nontender Musculoskeletal: There is no pedal edema. Neurological:. Speech is normal. Skin: Skin is warm and dry Results CBC & Chem 7: 01/10/18 17:45 01/11/18 05:15 Labs: Abnormal Lab Results - Last 24 Hours (Table) 01/10/18 01/10/18 01/10/18 Range/Units 17:45 17:45 17:45 RBC 3.43 L (3.80-5.40) m/uL Hgb 10.5 L (11.4-16.0) gm/dL Hct 33.6 L (34.0-46.0) % RDW 17.0 H (11.5-15.5) % Plt Count 141 L (150-450) k/uL INR (<1.2) BUN 54 H (7-17) mg/dL Creatinine 1.20 H (0.52-1.04) mg/dL Glucose 139 H (74-99) mg/dL POC Glucose (mg/dL) (75-99) mg/dL Alkaline Phosphatase 212 H (38-126) U/L Total Creatine Kinase 27 L (30-135) U/L Troponin I 0.094 H* (0.000-0.034) ng/mL Total Protein 6.0 L (6.3-8.2) g/dL 01/10/18 01/10/18 01/10/18 Range/Units 17:45 21:15 23:35 RBC (3.80-5.40) m/uL Hgb (11.4-16.0) gm/dL Hct (34.0-46.0) % RDW (11.5-15.5) % Plt Count (150-450) k/uL INR 1.2 H (<1.2) BUN (7-17) mg/dL Creatinine (0.52-1.04) mg/dL Glucose (74-99) mg/dL POC Glucose (mg/dL) 117 H (75-99) mg/dL Alkaline Phosphatase (38-126) U/L Total Creatine Kinase (30-135) U/L Troponin I 0.073 H* (0.000-0.034) ng/mL Total Protein (6.3-8.2) g/dL 01/11/18 01/11/18 01/11/18 Range/Units 05:15 05:18 06:11 RBC (3.80-5.40) m/uL Hgb (11.4-16.0) gm/dL Hct (34.0-46.0) % RDW (11.5-15.5) % Plt Count (150-450) k/uL INR (<1.2) BUN 52 H (7-17) mg/dL Creatinine 1.14 H (0.52-1.04) mg/dL Glucose 120 H (74-99) mg/dL POC Glucose (mg/dL) 131 H (75-99) mg/dL Alkaline Phosphatase (38-126) U/L Total Creatine Kinase 21 L (30-135) U/L Troponin I 0.072 H* (0.000-0.034) ng/mL Total Protein (6.3-8.2) g/dL 01/11/18 Range/Units 11:37 RBC (3.80-5.40) m/uL Hgb (11.4-16.0) gm/dL Hct (34.0-46.0) % RDW (11.5-15.5) % Plt Count (150-450) k/uL INR (<1.2) BUN (7-17) mg/dL Creatinine (0.52-1.04) mg/dL Glucose (74-99) mg/dL POC Glucose (mg/dL) 194 H (75-99) mg/dL Alkaline Phosphatase (38-126) U/L Total Creatine Kinase (30-135) U/L Troponin I (0.000-0.034) ng/mL Total Protein (6.3-8.2) g/dL Thrombosis Risk Factor Assmnt - Choose All That Apply Each Factor Represents 1 point: Swollen legs (current) Other Risk Factors: Yes Each Risk Factor Represents 2 Points: Age 61-74 years Other congenital or acquired thrombophilia - If yes, enter type in comment: No Thrombosis Risk Factor Assessment Total Risk Factor Score: 3 Thrombosis Risk Factor Assessment Level: Moderate Risk Assessment and Plan Assessment: 1) acute systolic heart failure exacerbation with underlying ischemic cardiomyopathy and known EF of 20%. Patient was started on IV Lasix. Continue Zaroxolyn twice daily. Monitor I's and O's closely. Nephrology and cardiology following. Continue milrinone per cardiology recommendations. 2) chronic atrial fibrillation: Heart rate well controlled. not a candidate for anticoagulation given his recurrent falls 3) Essential hypertension: Blood pressure well-controlled 4) type 2 diabetes, continue current insulin regimen 5) chronic venous insufficiency: Creatinine at baseline - Check postvoid residual to rule out obstructive uropathy - Repeat lab work in the morning
[2018-01-11] MEDS: MILRINONE-D5W PMX 20 MG in DEXTROSE/WATER 1 100ML.BAG IV SCH (14:36)
[2018-01-11 16:54] LABS: Glucose,Whole Blood 197 mg/dL (75-99)
[2018-01-11] MEDS ORDERED: FERROUS SULFATE 325 MG TAB PO SCH (17:00)
[2018-01-11] MEDS: LEVOTHYROXINE 25 MCG TAB PO SCH (17:16)
[2018-01-11] MEDS: SODIUM CHLORIDE 0.9% 1,000 ML IV SCH (20:16)
[2018-01-11] MEDS: ATORVASTATIN 20 MG TAB PO SCH (20:21)
[2018-01-11] MEDS: traZODone HCL 50 MG TAB PO SCH (20:21)
[2018-01-11 21:16] LABS: Glucose,Whole Blood 201 mg/dL (75-99)
[2018-01-12] MEDS: MILRINONE-D5W PMX 20 MG in DEXTROSE/WATER 1 100ML.BAG IV SCH ×2 (04:17→14:06)
[2018-01-12 04:43] LABS: Appearance,Urine Clear (Clear); Bilirubin,Urine Negative (Negative); Blood,Urine Negative (Negative); Color,Urine Yellow; Glucose,Urine (UA) Negative (Negative); Ketones,Urine Negative (Negative); Leukocyte Esterase,Urine Negative (Negative); Nitrite,Urine Negative (Negative); PH, Urine 5.5 (5.0-8.0); Protein,Urine Negative (Negative); Specific Gravity,Urine 1.009 (1.001-1.035); Urobilinogen,Urine <2.0 mg/dL (<2.0)
[2018-01-12 05:50] LABS: Glucose,Whole Blood 102 mg/dL (75-99)
[2018-01-12] MEDS: MIDODRINE 5 MG TAB PO SCH ×3 (06:24→17:55)
[2018-01-12 06:45] LABS: Anisocytosis Slight; Basophils % (A) 0 %; Eosinophils # (A) 0.1 k/uL (0-0.7); Eosinophils % (A) 2 %; HCT 29.3 % (34.0-46.0); Hypochromasia Slight; Lymphocytes # (A) 0.5 k/uL (1.0-4.8); Lymphocytes % (A) 12 %; MCH 29.7 pg (25.0-35.0); MCHC 30.6 g/dL (31.0-37.0); MCV 97.2 fL (80.0-100.0); Macrocytosis Slight; Mean Platelet Volume 8.8; Monocytes # (A) 0.4 k/uL (0-1.0); Monocytes % (A) 10 %; Neutrophils # (A) 3.2 k/uL (1.3-7.7); Neutrophils % (A) 74 %; Platelet Count 128 k/uL (150-450); RBC 3.01 m/uL (3.80-5.40); RDW 16.7 % (11.5-15.5); WBC 4.3 k/uL (3.8-10.6)
[2018-01-12 06:46] LABS: HGB 8.9 gm/dL (11.4-16.0)
[2018-01-12 06:50] LABS: Albumin 2.9 g/dL (3.5-5.0); Calcium 8.9 mg/dL (8.4-10.2); Magnesium 1.8 mg/dL (1.6-2.3); Potassium 3.8 mmol/L (3.5-5.1); Total Protein 5.2 g/dL (6.3-8.2)
[2018-01-12] MEDS: DOCUSATE 100 MG CAP PO SCH ×2 (09:12→14:03)
--- NOTE | 2018-01-12 09:14 | P.PN ---
Subjective Patient is seen in follow-up for acute kidney injury on chronic kidney disease. Patient has chronic kidney disease stage III with baseline creatinine in the range of 1-1.1. Creatinine is 1.13 today. She is making a Lasix 40 mg IV twice daily along with metolazone 2.5 mg twice daily. She is also on Primacor drip. She was noted to have urinary retention with near 1 L on bladder scan and underwent straight catheterization last night. Still quite edematous. She has history of systolic CHF with ejection fraction of 20-25% with severe tricuspid regurgitation. Vital signs are stable. General: The patient appeared well nourished and normally developed. HEENT: Head exam is unremarkable. Neck is without jugular venous distension. LUNGS: Lungs are clear to auscultation and percussion. Breath sounds decreased. HEART: Rate and Rhythm are regular. First and second heart sounds normal. No murmurs, rubs or gallops. ABDOMEN: Abdominal exam reveals normal bowel sounds. Non-tender and non- distended. No evidence of peritonitis. EXTREMITITES: 1+ edema. Objective - Vital Signs Vital signs: Vital Signs Temp 98.5 F 01/12/18 04:00 Pulse 90 01/12/18 04:00 Resp 20 01/12/18 04:00 BP 127/51 01/12/18 04:00 Pulse Ox 99 01/12/18 04:00 Intake & Output 01/11/18 01/12/18 01/12/18 18:59 06:59 18:59 Intake Total 958 160 180 Output Total 1593 Balance 958 -1433 180 Weight 94 kg 93.7 kg Intake: IV 60 60 Invasive Line 1 60 60 Intake, IV Titration 100 Amount Milrinone-D5w Pmx 20 mg 100 In Dextrose/Water 1 100ml .bag @ 0.3 MCG/KG/MIN 8. 46 mls/hr IV .[id number] [facility] Rx#:[id number] Oral 898 180 Output: Urine 700 Straight 700 Post Void Residual 893 Other: Voiding Method Diaper Diaper # Voids 0 - Labs CBC & Chem 7: 01/12/18 05:31 01/12/18 05:31 Labs: Abnormal Lab Results - Last 24 Hours (Table) 01/11/18 01/11/18 01/11/18 Range/Units 11:37 16:50 21:14 RBC (3.80-5.40) m/uL Hgb (11.4-16.0) gm/dL Hct (34.0-46.0) % MCHC (31.0-37.0) g/dL RDW (11.5-15.5) % Plt Count (150-450) k/uL Lymphocytes # (1.0-4.8) k/uL BUN (7-17) mg/dL Creatinine (0.52-1.04) mg/dL POC Glucose (mg/dL) 194 H 197 H 201 H (75-99) mg/dL Alkaline Phosphatase (38-126) U/L Total Protein (6.3-8.2) g/dL Albumin (3.5-5.0) g/dL 01/12/18 01/12/18 01/12/18 Range/Units 05:31 05:31 05:48 RBC 3.01 L (3.80-5.40) m/uL Hgb 8.9 L D (11.4-16.0) gm/dL Hct 29.3 L (34.0-46.0) % MCHC 30.6 L (31.0-37.0) g/dL RDW 16.7 H (11.5-15.5) % Plt Count 128 L (150-450) k/uL Lymphocytes # 0.5 L (1.0-4.8) k/uL BUN 50 H (7-17) mg/dL Creatinine 1.13 H (0.52-1.04) mg/dL POC Glucose (mg/dL) 102 H (75-99) mg/dL Alkaline Phosphatase 179 H (38-126) U/L Total Protein 5.2 L (6.3-8.2) g/dL Albumin 2.9 L (3.5-5.0) g/dL Assessment and Plan Plan: Assessment: #1. Mild nonoliguric acute kidney injury mostly prerenal secondary to cardiorenal syndrome. Creatinine 1.2 on admission - 1.13 today. Urinalysis is benign. #2. Chronic kidney disease stage III secondary to cardiorenal syndrome with baseline creatinine in the range of 1-1.1. #3. Systolic CHF with ejection fraction of 20-25% with severe tricuspid regurgitation. #4. Volume overload. #5. Insulin-dependent diabetes mellitus. #6. Urinary retention status post catheterization. #7. Anemia. Rule out iron deficiency. Plan: I will increase Lasix to 40 mg IV 3 times daily. Maintain metolazone 2.5 mg twice daily. Low-salt diet. 1.5 L fluid restriction. If continues to have persistent urinary retention, to insert Meng catheter. Check iron studies. Repeat electrolytes in the morning. Avoid nephrotoxic agents and hypotensive episodes.
[2018-01-12] MEDS: ASPIRIN 81 MG PO SCH (09:18)
[2018-01-12] MEDS: ALLOPURINOL 300 MG TAB PO SCH (09:18)
[2018-01-12] MEDS: ESCITALOPRAM 10 MG TAB PO SCH (09:19)
[2018-01-12] MEDS: METOLAZONE 2.5 MG TAB PO SCH ×2 (09:20→22:11)
[2018-01-12] MEDS: METOPROLOL TARTRATE 25 MG TAB PO SCH ×2 (09:20→22:11)
[2018-01-12] MEDS: FUROSEMIDE 10 MG/ML 4 ML VIAL IV SCH (09:20)
[2018-01-12] MEDS: INSULN ASP PRT/INSULIN ASPART 100 UNIT/ML 10 ML VIAL SQ SCH (09:20)
[2018-01-12] MEDS: SACUBITRIL/VALSARTAN 24 MG-26 MG TABLET PO SCH ×2 (09:21→22:11)
[2018-01-12] MEDS: PREGABALIN 50 MG CAP PO SCH ×2 (09:25→22:15)
--- NOTE | 2018-01-12 10:42 | ECHOF ---
Referral Reason:chf MEASUREMENTS -------- HEIGHT: 157.5 cm WEIGHT: 93.9 kg BP: RVIDd: 3.7 cm (< 3.3) IVSd: 1.1 cm (0.6 - 1.1) LVIDd: 5.7 cm (3.9 - 5.3) LVPWd: 1.1 cm (0.6 - 1.1) IVSs: 1.3 cm LVIDs: 4.7 cm LVPWs: 1.3 cm LA Diam: 4.7 cm (2.7 - 3.8) LAESV Index (A-L): 50.26 ml/m Ao Diam: 3.0 cm (2.0 - 3.7) AV Cusp: 1.7 cm (1.5 - 2.6) LA Diam: 5.0 cm (2.7 - 3.8) MV EXCURSION: 14.924 mm (> 18.000) MV EF SLOPE: 39 mm/s (70 - 150) EPSS: 1.4 cm MV E Sumit: 0.86 m/s MV DecT: 105 ms MV A Sumit: 0.84 m/s MV E/A Ratio: 1.01 RAP: 5.00 mmHg RVSP: 34.94 mmHg FINDINGS -------- Paced rhythm. This was a technically adequate study. The left ventricular size is normal. Overall left ventricular systolic function is severely impaire d with, an EF between 20 - 25 %. The right ventricle is moderate to severely enlarged. The left atrium is markedly dilated. LA is severely dilated >40 ml/m2 The right atrial size is normal. There is mild aortic valve sclerosis. Trace to mild aortic regurgitation. Mild mitral annular calcification present. Vaqm-js-[id number] mitral regurgitation is present. Moderate tricuspid regurgitation present. There is mild pulmonary hypertension. The right ventric ular systolic pressure, as measured by Doppler, is 34.94mmHg. Trace/mild (physiologic) pulmonic regurgitation. The aortic root size is normal. There is no pericardial effusion. CONCLUSIONS -------- 1. The left ventricular size is normal. 2. Overall left ventricular systolic function is severely impaired with, an EF between 20 - 25 %. 3. The right ventricle is moderate to severely enlarged. 4. The left atrium is markedly dilated. 5. LA is severely dilated >40 ml/m2 6. There is mild aortic valve sclerosis. 7. Trace to mild aortic regurgitation. 8. Mild mitral annular calcification present. 9. Doxe-[id number] mitral regurgitation is present. 10. Moderate tricuspid regurgitation present. 11. There is mild pulmonary hypertension. 12. The right ventricular systolic pressure, as measured by Doppler, is 34.94mmHg. 13. Trace/mild (physiologic) pulmonic regurgitation. 14. The aortic root size is normal. 15. There is no pericardial effusion. COOK RELIEF: Sharri Hughes RDCS
[2018-01-12 11:44] LABS: Glucose,Whole Blood 85 mg/dL (75-99)
[2018-01-12] MEDS: CHOLECALCIFEROL 1,000 UNIT TAB PO SCH (11:55)
--- NOTE | 2018-01-12 12:46 | P.PN ---
Subjective Patient was found to have urinary retention with greater than 1000 mL of urine drained last night Objective - Vital Signs Vital signs: Vital Signs Temp 97.6 F 01/12/18 11:45 Pulse 79 01/12/18 12:00 Resp 16 01/12/18 12:00 BP 106/56 01/12/18 11:45 Pulse Ox 93 L 01/12/18 11:45 Intake & Output 01/11/18 01/12/18 01/12/18 18:59 06:59 18:59 Intake Total 958 160 220 Output Total 1593 Balance 958 -1433 220 Weight 94 kg 93.7 kg Intake: IV 60 60 40 Invasive Line 1 60 60 40 Intake, IV Titration 100 Amount Milrinone-D5w Pmx 20 mg 100 In Dextrose/Water 1 100ml .bag @ 0.3 MCG/KG/MIN 8. 46 mls/hr IV .[id number] [facility] Rx#:[id number] Oral 898 180 Output: Urine 700 Straight 700 Post Void Residual 893 Other: Voiding Method Diaper Diaper Diaper # Voids 0 1 # Bowel Movements 0 - Exam General: The patient is awake and alert, in no distress Eye: there is normal conjunctiva bilaterally. Neck: The neck is supple, there is no JVD. Cardiovascular: Normal S1-S2, no S3-S4, no murmurs. Respiratory: Lungs clear to anterior chest auscultation Gastrointestinal: Abdomen is soft, nontender Musculoskeletal: There is +1-2 edema. Neurological:. Speech is normal. Skin: Skin is warm and dry - Labs CBC & Chem 7: 01/12/18 05:31 01/12/18 05:31 Labs: Abnormal Lab Results - Last 24 Hours (Table) 01/11/18 01/11/18 01/12/18 Range/Units 16:50 21:14 05:31 RBC 3.01 L (3.80-5.40) m/uL Hgb 8.9 L D (11.4-16.0) gm/dL Hct 29.3 L (34.0-46.0) % MCHC 30.6 L (31.0-37.0) g/dL RDW 16.7 H (11.5-15.5) % Plt Count 128 L (150-450) k/uL Lymphocytes # 0.5 L (1.0-4.8) k/uL BUN (7-17) mg/dL Creatinine (0.52-1.04) mg/dL POC Glucose (mg/dL) 197 H 201 H (75-99) mg/dL Alkaline Phosphatase (38-126) U/L Total Protein (6.3-8.2) g/dL Albumin (3.5-5.0) g/dL 01/12/18 01/12/18 Range/Units 05:31 05:48 RBC (3.80-5.40) m/uL Hgb (11.4-16.0) gm/dL Hct (34.0-46.0) % MCHC (31.0-37.0) g/dL RDW (11.5-15.5) % Plt Count (150-450) k/uL Lymphocytes # (1.0-4.8) k/uL BUN 50 H (7-17) mg/dL Creatinine 1.13 H (0.52-1.04) mg/dL POC Glucose (mg/dL) 102 H (75-99) mg/dL Alkaline Phosphatase 179 H (38-126) U/L Total Protein 5.2 L (6.3-8.2) g/dL Albumin 2.9 L (3.5-5.0) g/dL Assessment and Plan Assessment: 1) acute systolic heart failure exacerbation with underlying ischemic cardiomyopathy and known EF of 20%. Patient was started on IV Lasix. Continue Zaroxolyn twice daily. Monitor I's and O's closely. Nephrology and cardiology following. 2) chronic atrial fibrillation: Heart rate well controlled. not a candidate for anticoagulation given his recurrent falls 3) Essential hypertension: Blood pressure well-controlled 4) type 2 diabetes, continue current insulin regimen 5) chronic venous insufficiency: Creatinine at baseline 6. Obstructive uropathy: Continue postvoid residual check with bladder scan every 8 hours - if PVR greater than 200 mL insert Meng catheter - Repeat lab work in the morning
[2018-01-12] MEDS: POLYETHYLENE GLYCOL 3350 17 GM POWD.PACK PO SCH (14:02)
--- NOTE | 2018-01-12 14:09 | P.PN ---
Subjective Progress Note Date: 01/12/18 Principal diagnosis: CHF This is a pleasant 77-year-old female who follows regularly with Dr. Wall in the office. She has past history significant for coronary artery disease and prior bypass surgery, patient also has history of prior stent placement, paroxysmal atrial fibrillation, ischemic cardiomyopathy with prior AICD, systolic congestive heart failure, diabetes, hypertension, hyperlipidemia kidney disease stage III, history of prior ventricular tachycardia. She currently resides at [facility]. Admitted to the hospital with symptoms of progressively worsening shortness of breath and significant peripheral edema. According to the daughter over the past 2 weeks or more the symptoms have been worsening. According to the daughter, they've been giving her metolazone twice a day. Of her Lasix, and she still has continued to put on weight. For this reason she came to the emergency room for further evaluation. EKG on arrival shows a normal sinus rhythm with nonspecific ST-T wave changes. Chest x-ray shows mild congestive heart failure with right pleural effusion. Blood pressure 110/68 with a heart rate in the 60s, respirations 18. White blood cell count 6.6, hemoglobin 10.5, platelet count 141. Sodium 141, potassium 4.4, BUN 52, creatinine 1.1. Mag 1.8. Troponins 0.09, 0.07, 0.07. BNP level 20,400. Patient was initiated on IV Lasix in the emergency room, continued on Zaroxolyn 2.5 twice a day. 01/12/2018 Patient was seen and examined this morning, diuresing well through the night last night, apparently she did have to be straight cathed twice. Overall is feeling better just feels extremely sleepy today. At pressure 106/56 with a heart rate in the 70s to 80s. White blood cell count 4.3, hemoglobin 8.9, platelet count 128. Sodium 140, potassium 3.8, BUN 50, creatinine 1.1. Objective - Vital Signs Vital signs: Vital Signs Temp 97.6 F 01/12/18 11:45 Pulse 79 01/12/18 12:00 Resp 16 01/12/18 12:00 BP 106/56 01/12/18 11:45 Pulse Ox 93 L 01/12/18 11:45 Intake & Output 01/11/18 01/12/18 01/12/18 18:59 06:59 18:59 Intake Total 958 160 820 Output Total 1593 Balance 958 -1433 820 Weight 94 kg 93.7 kg Intake: IV 60 60 40 Invasive Line 1 60 60 40 Intake, IV Titration 100 Amount Milrinone-D5w Pmx 20 mg 100 In Dextrose/Water 1 100ml .bag @ 0.3 MCG/KG/MIN 8. 46 mls/hr IV .[id number] [facility] Rx#:[id number] Oral 898 780 Output: Urine 700 Straight 700 Post Void Residual 893 Other: Voiding Method Diaper Diaper Diaper # Voids 0 1 # Bowel Movements 0 - Exam PHYSICAL EXAMINATION: HEENT: Head is atraumatic, normocephalic. Pupils equal, round. Neck is supple. There is elevated jugular venous pressure. HEART EXAMINATION: Heart S1 and S2 systolic ejection murmur is heard. CHEST EXAMINATION: Lungs reveal rales to bilateral bases with diminished air entry to the bases. ABDOMEN: Soft, mildly distended, mild tenderness noted . Bowel sounds are heard. . EXTREMITIES:[ 2+ peripheral pulses with evidence of peripheral edema , bilateral dressings in place to the lower extremities. NEUROLOGIC patient is awake, sleepy, oriented 3 - Labs CBC & Chem 7: 01/12/18 05:31 01/12/18 05:31 Labs: Abnormal Lab Results - Last 24 Hours (Table) 01/11/18 01/11/18 01/12/18 Range/Units 16:50 21:14 05:31 RBC 3.01 L (3.80-5.40) m/uL Hgb 8.9 L D (11.4-16.0) gm/dL Hct 29.3 L (34.0-46.0) % MCHC 30.6 L (31.0-37.0) g/dL RDW 16.7 H (11.5-15.5) % Plt Count 128 L (150-450) k/uL Lymphocytes # 0.5 L (1.0-4.8) k/uL BUN (7-17) mg/dL Creatinine (0.52-1.04) mg/dL POC Glucose (mg/dL) 197 H 201 H (75-99) mg/dL Alkaline Phosphatase (38-126) U/L Total Protein (6.3-8.2) g/dL Albumin (3.5-5.0) g/dL 01/12/18 01/12/18 Range/Units 05:31 05:48 RBC (3.80-5.40) m/uL Hgb (11.4-16.0) gm/dL Hct (34.0-46.0) % MCHC (31.0-37.0) g/dL RDW (11.5-15.5) % Plt Count (150-450) k/uL Lymphocytes # (1.0-4.8) k/uL BUN 50 H (7-17) mg/dL Creatinine 1.13 H (0.52-1.04) mg/dL POC Glucose (mg/dL) 102 H (75-99) mg/dL Alkaline Phosphatase 179 H (38-126) U/L Total Protein 5.2 L (6.3-8.2) g/dL Albumin 2.9 L (3.5-5.0) g/dL Assessment and Plan Assessment: Assessment and plan #1 systolic congestive heart failure acute on chronic #2 acute on chronic renal failure #3 coronary artery disease with prior bypass surgery and PCI #4 diabetes #5 hypertension #6 ischemic cardiomyopathy with prior AICD #7 hyperlipidemia #8 peripheral vascular disease #9 paroxysmal atrial fibrillation, on Eliquis for anticoagulation Plan From cardiology's perspective, we will recommend to continue current dose of IV Lasix, milrinone along with Zaroxolyn. Echocardiogram with Doppler study was November revealed an ejection fraction of 20-25%, mild to moderate MR, moderate TR. Check lytes BUN and creatinine in the morning. He did have a lengthy discussion with the daughter today regarding CODE STATUS which has been discussed with the patient is a past. DNP note has been reviewed, I agree with a documented findings and plan of care. Patient was seen and examined.
[2018-01-12] MEDS ORDERED: FUROSEMIDE 10 MG/ML 4 ML VIAL IV SCH ×2 (16:00→21:00)
[2018-01-12 17:06] LABS: Glucose,Whole Blood 90 mg/dL (75-99)
[2018-01-12 17:11] LABS: Iron Saturation 8.97 (12.00-45.00)
[2018-01-12] MEDS: LEVOTHYROXINE 25 MCG TAB PO SCH (17:54)
[2018-01-12] MEDS: traZODone HCL 50 MG TAB PO SCH (22:10)
[2018-01-12] MEDS: ATORVASTATIN 20 MG TAB PO SCH (22:10)
[2018-01-13] MEDS: INSULN ASP PRT/INSULIN ASPART 100 UNIT/ML 10 ML VIAL SQ SCH ×3 (04:01→23:14)
[2018-01-13] MEDS: SODIUM CHLORIDE 0.9% 1,000 ML IV SCH (04:01)
[2018-01-13] MEDS: MILRINONE-D5W PMX 20 MG in DEXTROSE/WATER 1 100ML.BAG IV SCH ×2 (05:21→17:43)
[2018-01-13] MEDS: MIDODRINE 5 MG TAB PO SCH ×3 (05:59→17:09)
[2018-01-13 06:09] LABS: Anisocytosis Slight; Basophils % (A) 1 %; Eosinophils # (A) 0.2 k/uL (0-0.7); Eosinophils % (A) 4 %; HCT 31.4 % (34.0-46.0); HGB 9.5 gm/dL (11.4-16.0); Hypochromasia Slight; Lymphocytes # (A) 0.6 k/uL (1.0-4.8); Lymphocytes % (A) 12 %; MCH 29.6 pg (25.0-35.0); MCHC 30.4 g/dL (31.0-37.0); MCV 97.6 fL (80.0-100.0); Macrocytosis Slight; Mean Platelet Volume 8.9; Monocytes # (A) 0.4 k/uL (0-1.0); Monocytes % (A) 9 %; Neutrophils # (A) 3.4 k/uL (1.3-7.7); Neutrophils % (A) 73 %; Platelet Count 117 k/uL (150-450); RBC 3.22 m/uL (3.80-5.40); RDW 16.7 % (11.5-15.5); WBC 4.6 k/uL (3.8-10.6)
[2018-01-13 06:14] LABS: Glucose,Whole Blood 88 mg/dL (75-99)
[2018-01-13 06:19] LABS: Albumin 3.2 g/dL (3.5-5.0); Calcium 9.1 mg/dL (8.4-10.2); Magnesium 1.8 mg/dL (1.6-2.3); Potassium 3.9 mmol/L (3.5-5.1); Total Protein 5.5 g/dL (6.3-8.2)
--- NOTE | 2018-01-13 07:32 | CONS ---
CONSULTATION DATE OF SERVICE: 01/12/2018 REASON FOR CONSULTATION: Bilateral lower extremity venous stasis ulcer. HISTORY OF PRESENT ILLNESS: The patient is a 77-year-old female who is well known to my service as the patient does follow with us at the [facility] for treatment of her bilateral lower extremity venous stasis ulcer, right greater than the left. The [facility] who [facility] [place] [facility], she has been brought into the ER at [facility] 01/10/2018 after the patient noted to have significant swelling in her arms and legs being noticed by the family in the patient who does have a history of congestive heart failure and peripheral edema. The patient has been complaining of some shortness of breath when she lies flat, but denies having any chest pain. With these symptoms, the patient has been evaluated by the ER physician. On arrival to the ER, the patient did have a chest x-ray which shows probably mild congestive heart failure, right pleural effusion. Heart failure The patient was admitted to the cardiology floor and has been evaluated by the cardiology service for treatment of underlying congestive heart failure. The patient did have a normal white count on admission and remains to be normal. UA was negative. I was asked to see the patient today for further recommendation regarding local wound care. Currently being treated with Hydrofera Blue for the right leg since her last visit to the wound care center. In the mean time, the patient also developed wound to the left posterior leg area, likely a skin tear. The patient currently has been complaining of mild pain to the leg wound area, more of a dull aching pain 3 to 4/10 and no radiation. There was no significant drainage from them. REVIEW OF SYSTEMS: CONSTITUTIONAL: Positive for weakness, no high-grade fever. EYES: No complaint. ENT: No complaint. RESPIRATORY: As per HPI. CARDIOVASCULAR: No complaint. GENITOURINARY: No complaint. GASTROINTESTINAL: No complaint. MUSCULOSKELETAL: No complaint. INTEGUMENTARY: As per HPI. PSYCHOLOGICAL: No complaint. ENDOCRINE: No complaint. NEUROLOGICAL: No complaint. PAST MEDICAL HISTORY: Significant for congestive heart failure, atrial fibrillation, coronary artery disease, diabetes mellitus, hypertension, hyperlipidemia, gastroesophageal reflux disease , osteoarthritis, pulmonary embolism, ischemic cardiomyopathy, and chronic lower extremity venous stasis ulcer. PAST SURGICAL HISTORY: Cholecystectomy, coronary artery bypass grafting, PTCA stenting, pacemaker placement, tonsillectomy, tubal ligation, breast surgery. SOCIAL HISTORY: No history of smoking, drinking or drug use. Currently a resident of [facility]. FAMILY HISTORY: Mother with history of CVA, TIA. Father history of diabetes. ALLERGIES: Allergies to PENICILLIN, PROPOFOL, SULFAMETHOXAZOLE. MEDICATION: Medications currently include the patient is on Tylenol, [place], Zyloprim, aspirin, Lipitor, vitamin D3, Colace, Lexapro, iron sulfate, Lasix, NovoLog, Synthroid, Antivert, Zaroxolyn, Lopressor, ProAmatine, milrinone, Narcan, MiraLAX, Lyrica, Desyrel. PHYSICAL EXAMINATION: On examination, her blood pressure is 109/59, pulse 116, temperature 99. She is 99% on 2 L nasal cannula. General description is an elderly female lying in bed in no distress. No tachypnea or accessory muscle of respiration use. HEENT examination shows slight pallor. No scleral icterus. Oral mucous membrane is dry. No pharyngeal erythema or thrush. NECK: Trachea central. No thyromegaly. LUNGS: Unlabored breathing with decreased breath sounds at the bases. No wheeze or crackle. HEART: S1, S2. Irregular rate and rhythm noted. No added sounds. ABDOMEN: Soft, no tenderness. No guarding or rigidity. EXTREMITIES: No edema of the feet. EXAMINATION OF THE RIGHT LEG: The patient did have a venous stasis ulcer with no slough tissue or surrounding erythema or any foul-smelling drainage. The patient also has wound to left posterior leg, which is clean with no slough tissue or surrounding erythema or any foul-smelling drainage. NEUROLOGICAL: Patient is awake, alert, oriented x3. Mood and affect normal. LABS: Hemoglobin 8.8, white count 4.3 with a BUN of 15, creatinine 1.13. Electrolytes have been normal. Liver enzymes are normal. DIAGNOSTIC IMPRESSION AND PLAN: 1. Patient with right lower extremity venous stasis ulcer, chronic, currently being treated in the outpatient wound care center with Hydrofera Blue dressing. Wound base with very minimal slough. No significant surrounding erythema and no evidence of any secondary cellulitis. 2. Patient with left posterior leg wound, questionably pressure ulcer versus venous stasis, but no evidence of any cellulitis. PLAN: 1. Recommend local wound care. We will apply Aquacel Silver dressing to these wounds followed by Moe wrap for compression in view of the inavailability of Hydrofera Blue dressing on the floor. 2. No need for any systemic antibiotic therapy as no evidence of any secondary cellulitis. 3. We will continue to monitor her wound closely during this hospital admission and adjust therapy depending upon clinical response. Thank you for this consultation. Will follow this patient along. Family was present at bedside and their questions were answered. MMODL / IJN: [id number] / [id number]
--- NOTE | 2018-01-13 08:43 | P.PN ---
Subjective Patient is seen in follow-up for acute kidney injury on chronic kidney disease. Patient has chronic kidney disease stage III with baseline creatinine in the range of 1-1.1. Creatinine is 1.11 today. She is making a Lasix 40 mg IV twice daily along with metolazone 2.5 mg twice daily. She is also on Primacor drip. She was noted to have urinary retention with near 1 L on bladder scan and underwent straight catheterization - no further retention. Still quite edematous. She has history of systolic CHF with ejection fraction of 20-25% with severe tricuspid regurgitation. Vital signs are stable. General: The patient appeared well nourished and normally developed. HEENT: Head exam is unremarkable. Neck is without jugular venous distension. LUNGS: Lungs are clear to auscultation and percussion. Breath sounds decreased. HEART: Rate and Rhythm are regular. First and second heart sounds normal. No murmurs, rubs or gallops. ABDOMEN: Abdominal exam reveals normal bowel sounds. Non-tender and non- distended. No evidence of peritonitis. EXTREMITITES: 1+ edema. Objective - Vital Signs Vital signs: Vital Signs Temp 97.9 F 01/13/18 04:00 Pulse 109 H 01/13/18 04:00 Resp 18 01/13/18 04:00 BP 110/59 01/13/18 04:00 Pulse Ox 99 01/13/18 04:00 Intake & Output 01/12/18 01/13/18 01/13/18 18:59 06:59 18:59 Intake Total 1753.049 210 Balance 1753.049 210 Weight 93.5 kg Intake: IV 50 10 Invasive Line 1 40 Invasive Line 2 10 10 Intake, IV Titration 83.049 200 Amount Milrinone-D5w Pmx 20 mg 83.049 100 In Dextrose/Water 1 100ml .bag @ 0.3 MCG/KG/MIN 8. 46 mls/hr IV .[id number] [facility] Rx#:[id number] Sodium Chloride 0.9% 1, 100 000 ml @ 20 mls/hr IV . Q24H [facility] Rx#:[id number] Oral 1620 Other: Voiding Method Diaper Diaper Incontinent # Voids 1 2 # Bowel Movements 1 1 - Labs CBC & Chem 7: 01/13/18 05:44 01/13/18 05:44 Labs: Abnormal Lab Results - Last 24 Hours (Table) 01/12/18 01/13/18 01/13/18 Range/Units 05:31 05:44 05:44 RBC 3.22 L (3.80-5.40) m/uL Hgb 9.5 L (11.4-16.0) gm/dL Hct 31.4 L (34.0-46.0) % MCHC 30.4 L (31.0-37.0) g/dL RDW 16.7 H (11.5-15.5) % Plt Count 117 L (150-450) k/uL Lymphocytes # 0.6 L (1.0-4.8) k/uL BUN 50 H (7-17) mg/dL Creatinine 1.11 H (0.52-1.04) mg/dL Iron 26 L (50-170) ug/dL Iron Saturation 8.97 L (12.00-45.00) Alkaline Phosphatase 195 H (38-126) U/L Total Protein 5.5 L (6.3-8.2) g/dL Albumin 3.2 L (3.5-5.0) g/dL Assessment and Plan Plan: Assessment: #1. Mild nonoliguric acute kidney injury mostly prerenal secondary to cardiorenal syndrome. Creatinine 1.2 on admission - 1.11 today. Urinalysis is benign. #2. Chronic kidney disease stage III secondary to cardiorenal syndrome with baseline creatinine in the range of 1-1.1. #3. Systolic CHF with ejection fraction of 20-25% with severe tricuspid regurgitation. #4. Volume overload. #5. Insulin-dependent diabetes mellitus. #6. Urinary retention status post catheterization. #7. Anemia. Iron deficiency noted. Plan: I will increase Lasix to 40 mg IV 3 times daily. Maintain metolazone 2.5 mg twice daily. Low-salt diet. 1.5 L fluid restriction. If continues to have persistent urinary retention, to insert Meng catheter. Ferrlicit 125 mg IV daily for 3 days. First dose today. Repeat electrolytes in the morning. Avoid nephrotoxic agents and hypotensive episodes. With patient's underlying cardiac status, blood pressure in the 90s-100s is acceptable as long as she is asymptomatic. I do note that midodrine has been admitted as well.
[2018-01-13] MEDS: ASPIRIN 81 MG PO SCH (09:14)
[2018-01-13] MEDS: ALLOPURINOL 300 MG TAB PO SCH (09:14)
[2018-01-13] MEDS: SACUBITRIL/VALSARTAN 24 MG-26 MG TABLET PO SCH ×2 (09:14→20:12)
[2018-01-13] MEDS: ESCITALOPRAM 10 MG TAB PO SCH (09:14)
[2018-01-13] MEDS: DOCUSATE 100 MG CAP PO SCH ×3 (09:14→17:11)
[2018-01-13] MEDS: METOLAZONE 2.5 MG TAB PO SCH ×2 (09:14→20:10)
[2018-01-13] MEDS: PREGABALIN 50 MG CAP PO SCH ×2 (09:24→20:11)
[2018-01-13] MEDS: SODIUM FERRIC GLUCONAT-SUCROSE 125 MG in SODIUM CHLORIDE 0.9% 100 ML IVPB SCH (09:24)
[2018-01-13] MEDS: METOPROLOL TARTRATE 25 MG TAB PO SCH ×2 (09:24→20:11)
--- NOTE | 2018-01-13 11:48 | P.PN ---
Subjective Patient is not feeling any better today. She is having a lot of cough. She is still edematous. No lway to measure her urine output as patient is incontinent. Objective - Vital Signs Vital signs: Vital Signs Temp 99.3 F 01/13/18 11:36 Pulse 69 01/13/18 11:36 Resp 20 01/13/18 11:36 BP 90/53 01/13/18 11:36 Pulse Ox 97 01/13/18 11:36 Intake & Output 01/12/18 01/13/18 01/13/18 18:59 06:59 18:59 Intake Total 1753.049 210 Balance 1753.049 210 Weight 93.5 kg 93.5 kg Intake: IV 50 10 Invasive Line 1 40 Invasive Line 2 10 10 Intake, IV Titration 83.049 200 Amount Milrinone-D5w Pmx 20 mg 83.049 100 In Dextrose/Water 1 100ml .bag @ 0.3 MCG/KG/MIN 8. 46 mls/hr IV .[id number] [facility] Rx#:[id number] Sodium Chloride 0.9% 1, 100 000 ml @ 20 mls/hr IV . Q24H [facility] Rx#:[id number] Oral 1620 Other: Voiding Method Diaper Diaper Diaper Incontinent Incontinent # Voids 1 2 # Bowel Movements 1 1 - Exam General: The patient is awake and alert, in no distress Eye: there is normal conjunctiva bilaterally. Neck: The neck is supple, there is no JVD. Cardiovascular: Normal S1-S2, no S3-S4, no murmurs. Respiratory: Lungs with mild end expiratory wheezing and rhonchi to anterior chest auscultation Gastrointestinal: Abdomen is soft, nontender Musculoskeletal: There is +2 edema. Neurological:. Speech is normal. Skin: Skin is warm and dry both lower extremities wrapped with clean/dry dressing . - Labs CBC & Chem 7: 01/13/18 05:44 01/13/18 05:44 Labs: Abnormal Lab Results - Last 24 Hours (Table) 01/12/18 01/13/18 01/13/18 Range/Units 05:31 05:44 05:44 RBC 3.22 L (3.80-5.40) m/uL Hgb 9.5 L (11.4-16.0) gm/dL Hct 31.4 L (34.0-46.0) % MCHC 30.4 L (31.0-37.0) g/dL RDW 16.7 H (11.5-15.5) % Plt Count 117 L (150-450) k/uL Lymphocytes # 0.6 L (1.0-4.8) k/uL BUN 50 H (7-17) mg/dL Creatinine 1.11 H (0.52-1.04) mg/dL Iron 26 L (50-170) ug/dL Iron Saturation 8.97 L (12.00-45.00) Alkaline Phosphatase 195 H (38-126) U/L Total Protein 5.5 L (6.3-8.2) g/dL Albumin 3.2 L (3.5-5.0) g/dL Assessment and Plan Assessment: 1) acute systolic heart failure exacerbation with underlying ischemic cardiomyopathy and known EF of 20%. Patient was started on IV Lasix. Continue Zaroxolyn twice daily. Unable to monitor I's and O's closely as patient is incontinent. Nephrology and cardiology following. Currently on milrinone drip 2) chronic atrial fibrillation: Heart rate well controlled. not a candidate for anticoagulation given his recurrent falls 3) Essential hypertension: Blood pressure well-controlled 4) type 2 diabetes, continue current insulin regimen 5) chronic venous insufficiency: Creatinine at baseline 6) Obstructive uropathy: patient had 1000 mL of urine drained Tuesday evening - continue bladder scan every shift if PVR greater than 200 mL insert Meng catheter - Repeat lab work in the morning
[2018-01-13 11:52] LABS: Glucose,Whole Blood 78 mg/dL (75-99)
[2018-01-13] MEDS: CHOLECALCIFEROL 1,000 UNIT TAB PO SCH (12:06)
--- NOTE | 2018-01-13 12:18 | XR ---
EXAMINATION TYPE: XR chest 1V DATE OF EXAM: 01/13/2018 COMPARISON: 01/10/2018 HISTORY: Shortness of breath FINDINGS: Noted is pulmonary venous congestion with scattered infiltrates. There is also cardiomegaly and small effusions. IMPRESSION: Findings compatible with progressive congestive failure. Infiltrates of other etiology are not exclu ded. Clinical correlation and progress studies are recommended.
--- NOTE | 2018-01-13 14:26 | P.PN ---
Subjective Progress Note Date: 01/13/18 Principal diagnosis: CHF This is a pleasant 77-year-old female who follows regularly with Dr. Wall in the office. She has past history significant for coronary artery disease and prior bypass surgery, patient also has history of prior stent placement, paroxysmal atrial fibrillation, ischemic cardiomyopathy with prior AICD, systolic congestive heart failure, diabetes, hypertension, hyperlipidemia kidney disease stage III, history of prior ventricular tachycardia. She currently resides at [facility]. Admitted to the hospital with symptoms of progressively worsening shortness of breath and significant peripheral edema. According to the daughter over the past 2 weeks or more the symptoms have been worsening. According to the daughter, they've been giving her metolazone twice a day. Of her Lasix, and she still has continued to put on weight. For this reason she came to the emergency room for further evaluation. EKG on arrival shows a normal sinus rhythm with nonspecific ST-T wave changes. Chest x-ray shows mild congestive heart failure with right pleural effusion. Blood pressure 110/68 with a heart rate in the 60s, respirations 18. White blood cell count 6.6, hemoglobin 10.5, platelet count 141. Sodium 141, potassium 4.4, BUN 52, creatinine 1.1. Mag 1.8. Troponins 0.09, 0.07, 0.07. BNP level 20,400. Patient was initiated on IV Lasix in the emergency room, continued on Zaroxolyn 2.5 twice a day. 01/12/2018 Patient was seen and examined this morning, diuresing well through the night last night, apparently she did have to be straight cathed twice. Overall is feeling better just feels extremely sleepy today. At pressure 106/56 with a heart rate in the 70s to 80s. White blood cell count 4.3, hemoglobin 8.9, platelet count 128. Sodium 140, potassium 3.8, BUN 50, creatinine 1.1. 01/13/2018 Patient seen and examined today, chest x-ray does show progressive congestive heart failure. Patient's dose of Lasix was increased today we will continue the milrinone. Hemoglobin 9.5 today, potassium 3.9, BUN 50, creatinine 1.1. She is feeling somewhat better today overall. Objective - Vital Signs Vital signs: Vital Signs Temp 99.3 F 01/13/18 11:36 Pulse 69 01/13/18 11:36 Resp 20 01/13/18 11:36 BP 90/53 01/13/18 11:36 Pulse Ox 97 01/13/18 11:36 Intake & Output 01/12/18 01/13/18 01/13/18 18:59 06:59 18:59 Intake Total 1753.049 210 50 Balance 1753.049 210 50 Weight 93.5 kg 93.5 kg Intake: IV 50 10 Invasive Line 1 40 Invasive Line 2 10 10 Intake, IV Titration 83.049 200 Amount Milrinone-D5w Pmx 20 mg 83.049 100 In Dextrose/Water 1 100ml .bag @ 0.3 MCG/KG/MIN 8. 46 mls/hr IV .[id number] [facility] Rx#:[id number] Sodium Chloride 0.9% 1, 100 000 ml @ 20 mls/hr IV . Q24H [facility] Rx#:[id number] Oral 1620 50 Other: Voiding Method Diaper Diaper Diaper Incontinent Incontinent # Voids 1 2 # Bowel Movements 1 1 - Exam PHYSICAL EXAMINATION: HEENT: Head is atraumatic, normocephalic. Pupils equal, round. Neck is supple. There is elevated jugular venous pressure. HEART EXAMINATION: Heart S1 and S2 systolic ejection murmur is heard. CHEST EXAMINATION: Lungs reveal rales to bilateral bases with diminished air entry to the bases. ABDOMEN: Soft, mildly distended, mild tenderness noted . Bowel sounds are heard. . EXTREMITIES:[ 2+ peripheral pulses with evidence of peripheral edema , bilateral dressings in place to the lower extremities. NEUROLOGIC patient is awake, sleepy, oriented 3 - Labs CBC & Chem 7: 01/13/18 05:44 01/13/18 05:44 Labs: Abnormal Lab Results - Last 24 Hours (Table) 01/12/18 01/13/18 01/13/18 Range/Units 05:31 05:44 05:44 RBC 3.22 L (3.80-5.40) m/uL Hgb 9.5 L (11.4-16.0) gm/dL Hct 31.4 L (34.0-46.0) % MCHC 30.4 L (31.0-37.0) g/dL RDW 16.7 H (11.5-15.5) % Plt Count 117 L (150-450) k/uL Lymphocytes # 0.6 L (1.0-4.8) k/uL BUN 50 H (7-17) mg/dL Creatinine 1.11 H (0.52-1.04) mg/dL Iron 26 L (50-170) ug/dL Iron Saturation 8.97 L (12.00-45.00) Alkaline Phosphatase 195 H (38-126) U/L Total Protein 5.5 L (6.3-8.2) g/dL Albumin 3.2 L (3.5-5.0) g/dL Assessment and Plan Assessment: Assessment and plan #1 systolic congestive heart failure acute on chronic #2 acute on chronic renal failure #3 coronary artery disease with prior bypass surgery and PCI #4 diabetes #5 hypertension #6 ischemic cardiomyopathy with prior AICD #7 hyperlipidemia #8 peripheral vascular disease #9 paroxysmal atrial fibrillation, on Eliquis for anticoagulation Plan From cardiology's perspective, we will recommend to imncrease current dose of IV Lasix, milrinone along with Zaroxolyn. Echocardiogram with Doppler study was November revealed an ejection fraction of 20-25%, mild to moderate MR, moderate TR. Check lytes BUN and creatinine in the morning. He did have a lengthy discussion with the daughter today regarding CODE STATUS which has been discussed with the patient is a past. DNP note has been reviewed, I agree with a documented findings and plan of care. Patient was seen and examined.
[2018-01-13] MEDS: FUROSEMIDE 10 MG/ML 4 ML VIAL IV SCH ×2 (16:33→23:24)
[2018-01-13 16:55] LABS: Glucose,Whole Blood 104 mg/dL (75-99)
[2018-01-13] MEDS: LEVOTHYROXINE 25 MCG TAB PO SCH (17:09)
[2018-01-13] MEDS: POLYETHYLENE GLYCOL 3350 17 GM POWD.PACK PO SCH ×2 (17:10→17:11)
[2018-01-13] MEDS: guaiFENesin 600 MG TABLET.ER PO SCH (20:12)
[2018-01-13] MEDS: ATORVASTATIN 20 MG TAB PO SCH (20:12)
[2018-01-13] MEDS: traZODone HCL 50 MG TAB PO SCH (20:12)
[2018-01-13 20:54] LABS: Glucose,Whole Blood 104 mg/dL (75-99)
--- NOTE | 2018-01-13 23:29 | PN ---
PROGRESS NOTE DATE OF SERVICE: 01/13/2018. REASON FOR FOLLOWUP: Bilateral lower extremity venous stasis ulcer, no cellulitis. INTERVAL HISTORY: The patient is afebrile. She is breathing slightly comfortably. She did have some congested cough, not bringing up any sputum. Appetite remains to be low. No nausea, vomiting. No abdominal pain, or any pain in the leg area. EXAMINATION: Blood pressure 108/53 with a pulse of 83, temperature of 98.4. She is 92% on room air. General description is a middle-aged female up in the chair in no distress. RESPIRATORY SYSTEM: Unlabored breathing with decreased breath sounds in the bases. No wheeze. HEART: S1, S2. Regular rate and rhythm. ABDOMEN: Soft. No tenderness. Leg wounds are currently dressed up and no obvious drainage on the dressing. LABS: Hemoglobin 9.5, white count of 4.6 with a BUN of 15, creatinine is 1.1. DIAGNOSTIC IMPRESSION AND PLAN: Patient with bilateral extremity venous stasis ulcer with no cellulitis. Local wound care to continue with Aquacel silver dressing followed by Moe wrap to keep the swelling down. We will remove the dressing tomorrow. Continue supportive care. Family present at the bedside. Their questions were answered. MMODL / IJN: [id number] /
[2018-01-14] MEDS: SODIUM CHLORIDE 0.9% 1,000 ML IV SCH (00:39)
[2018-01-14] MEDS: SODIUM CHLORIDE 0.9% 500 ML IV SCH ×2 (01:41→23:56)
[2018-01-14] MEDS: MILRINONE-D5W PMX 20 MG in DEXTROSE/WATER 1 100ML.BAG IV SCH ×2 (01:53→15:59)
[2018-01-14 05:59] LABS: Glucose,Whole Blood 91 mg/dL (75-99)
[2018-01-14 06:07] LABS: Anisocytosis Slight; Basophils % (A) 0 %; Eosinophils # (A) 0.1 k/uL (0-0.7); Eosinophils % (A) 3 %; HGB 9.3 gm/dL (11.4-16.0); Hypochromasia Slight; Lymphocytes # (A) 0.6 k/uL (1.0-4.8); Lymphocytes % (A) 13 %; MCHC 31.1 g/dL (31.0-37.0); MCV 96.6 fL (80.0-100.0); Macrocytosis Slight; Mean Platelet Volume 8.8; Monocytes # (A) 0.4 k/uL (0-1.0); Monocytes % (A) 10 %; Neutrophils # (A) 3.3 k/uL (1.3-7.7); Neutrophils % (A) 71 %; Platelet Count 120 k/uL (150-450); RBC 3.11 m/uL (3.80-5.40); RDW 16.4 % (11.5-15.5); WBC 4.6 k/uL (3.8-10.6)
[2018-01-14 06:11] LABS: Albumin 3.1 g/dL (3.5-5.0); Calcium 9.1 mg/dL (8.4-10.2); Magnesium 1.7 mg/dL (1.6-2.3); Potassium 3.6 mmol/L (3.5-5.1); Total Bilirubin 0.9 mg/dL (0.2-1.3); Total Protein 5.4 g/dL (6.3-8.2)
[2018-01-14] MEDS: MIDODRINE 5 MG TAB PO SCH ×3 (06:44→16:00)
--- NOTE | 2018-01-14 09:37 | P.PN ---
Subjective Progress Note Date: 01/14/18 Principal diagnosis: This is a 77-year-old long term resident and was seen in consultation because of cardiorenal syndrome. She is currently on Lasix 40 every 8 and Primacor drip. Urine output is not documented. She continues to have cough which is dry and shortness of breath at rest. Denies any chest pain. Appetite is poor. She is bedridden for some time. Past history; She has past history significant for coronary artery disease and prior bypass surgery, patient also has history of prior stent placement, paroxysmal atrial fibrillation, ischemic cardiomyopathy with prior AICD, systolic congestive heart failure, diabetes, hypertension, hyperlipidemia kidney disease stage III, history of prior ventricular tachycardia. She currently resides at [facility]. Admitted to the hospital with symptoms of progressively worsening shortness of breath and significant peripheral edema. Objective - Vital Signs Vital signs: Vital Signs Temp 97.3 F L 01/14/18 04:00 Pulse 98 01/14/18 08:03 Resp 19 01/14/18 08:03 BP 100/51 01/14/18 04:00 Pulse Ox 97 01/14/18 08:49 Intake & Output 01/13/18 01/14/18 01/14/18 18:59 06:59 18:59 Intake Total 508 119.09 125 Balance 508 119.09 125 Weight 93.5 kg 90 kg Intake: IV 68 Milrinone-D5w Pmx 20 mg 68 In Dextrose/Water 1 100ml .bag @ 0.3 MCG/KG/MIN 8. 46 mls/hr IV .[id number] [facility] Rx#:[id number] Intake, IV Titration 240 69.09 Amount Milrinone-D5w Pmx 20 mg 100 69.09 In Dextrose/Water 1 100ml .bag @ 0.3 MCG/KG/MIN 8. 46 mls/hr IV .[id number] [facility] Rx#:[id number] Sodium Chloride 0.9% 1, 40 000 ml @ 20 mls/hr IV . Q24H [facility] Rx#:[id number] Sodium Ferric Gluconat- 100 Sucrose 125 mg In Sodium Chloride 0.9% 100 ml @ 100 mls/hr IVPB DAILY [facility] Rx#:[id number] Oral 200 50 125 Other: Voiding Method Diaper Diaper Diaper Incontinent Incontinent Incontinent # Voids 1 On examination is awake alert oriented comfortable. HEENT exam elevated JVP about 8-10 cm. neck is supple no facial asymmetry Lungs are significant for bilateral expiratory wheezing and diminished air entry bilaterally and occasional coarse crackles at bases. Heart sounds are unremarkable for any murmur rub gallop Abdomen soft nontender no organomegaly Extremities exam was bilateral anne dressing there is mild edema of both extremities. Supposedly she has chronic ulcers on her shins. Neuro logically awake alert oriented but profoundly weak she didn't have the strength to even sit up - Labs CBC & Chem 7: 01/14/18 05:29 01/14/18 05:29 Labs: Abnormal Lab Results - Last 24 Hours (Table) 01/13/18 01/13/18 01/14/18 Range/Units 16:51 20:52 05:29 RBC 3.11 L (3.80-5.40) m/uL Hgb 9.3 L (11.4-16.0) gm/dL Hct 30.0 L (34.0-46.0) % RDW 16.4 H (11.5-15.5) % Plt Count 120 L (150-450) k/uL Lymphocytes # 0.6 L (1.0-4.8) k/uL BUN (7-17) mg/dL Creatinine (0.52-1.04) mg/dL POC Glucose (mg/dL) 104 H 104 H (75-99) mg/dL AST (14-36) U/L Alkaline Phosphatase (38-126) U/L Total Protein (6.3-8.2) g/dL Albumin (3.5-5.0) g/dL 01/14/18 Range/Units 05:29 RBC (3.80-5.40) m/uL Hgb (11.4-16.0) gm/dL Hct (34.0-46.0) % RDW (11.5-15.5) % Plt Count (150-450) k/uL Lymphocytes # (1.0-4.8) k/uL BUN 52 H (7-17) mg/dL Creatinine 1.20 H (0.52-1.04) mg/dL POC Glucose (mg/dL) (75-99) mg/dL AST 37 H (14-36) U/L Alkaline Phosphatase 189 H (38-126) U/L Total Protein 5.4 L (6.3-8.2) g/dL Albumin 3.1 L (3.5-5.0) g/dL Assessment and Plan Assessment: Impression. 1. Acute kidney injury secondary to cardiorenal syndrome on Primacor and Lasix 40 daily 8 with metolazone. Creatinine stable but urine output is unclear the chest x-ray continues to show significant CHF as of one done yesterday 2017. 2. Insulin-dependent diabetes. 3. History of urinary retention. 4. Anemia, with iron saturation of 8% dated 01/12/2018 on Ferrle[facility]. 5. Chronically bedridden long term resident. 6. Cardiomyopathy ejection fraction 20-25% with severe tricuspid regurgitation. Recommendation. 1. Increase Lasix to 80 daily 8. IV, 2. Maintain Primacor. 3. Watch hemoglobin. 4. Monitor labs.
[2018-01-14] MEDS: CHOLECALCIFEROL 1,000 UNIT TAB PO SCH (11:20)
[2018-01-14] MEDS: ALLOPURINOL 300 MG TAB PO SCH (11:20)
[2018-01-14] MEDS: METOPROLOL TARTRATE 25 MG TAB PO SCH ×2 (11:20→19:54)
[2018-01-14] MEDS: guaiFENesin 600 MG TABLET.ER PO SCH ×2 (11:20→19:54)
[2018-01-14] MEDS: ASPIRIN 81 MG PO SCH (11:20)
[2018-01-14] MEDS: FUROSEMIDE 10 MG/ML 4 ML VIAL IV SCH (11:21)
[2018-01-14] MEDS: METOLAZONE 2.5 MG TAB PO SCH ×2 (11:22→19:54)
[2018-01-14] MEDS: DOCUSATE 100 MG CAP PO SCH ×2 (11:23→16:00)
[2018-01-14] MEDS: SACUBITRIL/VALSARTAN 24 MG-26 MG TABLET PO SCH ×2 (11:23→19:54)
[2018-01-14] MEDS: SODIUM FERRIC GLUCONAT-SUCROSE 125 MG in SODIUM CHLORIDE 0.9% 100 ML IVPB SCH (11:27)
[2018-01-14] MEDS: PREGABALIN 50 MG CAP PO SCH ×2 (11:29→19:54)
[2018-01-14] MEDS: INSULN ASP PRT/INSULIN ASPART 100 UNIT/ML 10 ML VIAL SQ SCH (11:32)
[2018-01-14] MEDS: ESCITALOPRAM 10 MG TAB PO SCH (11:34)
[2018-01-14] MEDS: FUROSEMIDE 10 MG/ML 10 ML VIAL IV SCH ×3 (11:34→23:55)
[2018-01-14 11:46] LABS: Glucose,Whole Blood 130 mg/dL (75-99)
[2018-01-14] MEDS ORDERED: LEVOTHYROXINE 25 MCG TAB PO SCH (13:19)
--- NOTE | 2018-01-14 13:21 | P.PN ---
Subjective No significant change. Overall condition continued to be poor. Anasarca up to the hip. Objective - Vital Signs Vital signs: Vital Signs Temp 97.3 F L 01/14/18 04:00 Pulse 98 01/14/18 08:03 Resp 19 01/14/18 08:03 BP 100/51 01/14/18 04:00 Pulse Ox 97 01/14/18 08:49 Intake & Output 01/13/18 01/14/18 01/14/18 18:59 06:59 18:59 Intake Total 508 119.09 125 Balance 508 119.09 125 Weight 93.5 kg 90 kg Intake: IV 68 Milrinone-D5w Pmx 20 mg 68 In Dextrose/Water 1 100ml .bag @ 0.3 MCG/KG/MIN 8. 46 mls/hr IV .[id number] [facility] Rx#:[id number] Intake, IV Titration 240 69.09 Amount Milrinone-D5w Pmx 20 mg 100 69.09 In Dextrose/Water 1 100ml .bag @ 0.3 MCG/KG/MIN 8. 46 mls/hr IV .[id number] [facility] Rx#:[id number] Sodium Chloride 0.9% 1, 40 000 ml @ 20 mls/hr IV . Q24H [facility] Rx#:[id number] Sodium Ferric Gluconat- 100 Sucrose 125 mg In Sodium Chloride 0.9% 100 ml @ 100 mls/hr IVPB DAILY [facility] Rx#:[id number] Oral 200 50 125 Other: Voiding Method Diaper Diaper Diaper Incontinent Incontinent Incontinent # Voids 1 1 # Bowel Movements 1 - Exam General: The patient is awake and alert, in no distress Eye: there is normal conjunctiva bilaterally. Neck: The neck is supple, there is no JVD. Cardiovascular: Normal S1-S2, no S3-S4, no murmurs. Respiratory: Lungs with diffuse crackles all over the chest Gastrointestinal: Abdomen is soft, nontender Musculoskeletal: There is +2 edema. Neurological:. Speech is normal. Skin: Skin is warm and dry both lower extremities wrapped with clean/dry dressing . - Labs CBC & Chem 7: 01/14/18 05:29 01/14/18 05:29 Labs: Abnormal Lab Results - Last 24 Hours (Table) 01/13/18 01/13/18 01/14/18 Range/Units 16:51 20:52 05:29 RBC 3.11 L (3.80-5.40) m/uL Hgb 9.3 L (11.4-16.0) gm/dL Hct 30.0 L (34.0-46.0) % RDW 16.4 H (11.5-15.5) % Plt Count 120 L (150-450) k/uL Lymphocytes # 0.6 L (1.0-4.8) k/uL BUN (7-17) mg/dL Creatinine (0.52-1.04) mg/dL POC Glucose (mg/dL) 104 H 104 H (75-99) mg/dL AST (14-36) U/L Alkaline Phosphatase (38-126) U/L Total Protein (6.3-8.2) g/dL Albumin (3.5-5.0) g/dL 01/14/18 01/14/18 Range/Units 05:29 11:43 RBC (3.80-5.40) m/uL Hgb (11.4-16.0) gm/dL Hct (34.0-46.0) % RDW (11.5-15.5) % Plt Count (150-450) k/uL Lymphocytes # (1.0-4.8) k/uL BUN 52 H (7-17) mg/dL Creatinine 1.20 H (0.52-1.04) mg/dL POC Glucose (mg/dL) 130 H (75-99) mg/dL AST 37 H (14-36) U/L Alkaline Phosphatase 189 H (38-126) U/L Total Protein 5.4 L (6.3-8.2) g/dL Albumin 3.1 L (3.5-5.0) g/dL Assessment and Plan Assessment: 1) acute systolic heart failure exacerbation with underlying ischemic cardiomyopathy and known EF of 20%. Patient was started on IV Lasix. Continue Zaroxolyn twice daily. Unable to monitor I's and O's closely as patient is incontinent. Nephrology and cardiology following. Currently on milrinone drip 2) chronic atrial fibrillation: Heart rate well controlled. not a candidate for anticoagulation given his recurrent falls 3) Essential hypertension: Blood pressure well-controlled 4) type 2 diabetes, continue current insulin regimen 5) chronic venous insufficiency: Creatinine at baseline 6) Obstructive uropathy: patient had 1000 mL of urine drained Tuesday evening - Repeat lab work in the morning Today, I have a prolonged discussion with patient and her family regarding CODE STATUS. I explained to the patient her current guarded prognosis. Her daughters at bedside and understands and encourage her to pursue DO NOT RESUSCITATE status. Patient said that she would think about it. For now she wants to be full code.
--- NOTE | 2018-01-14 14:54 | US ---
EXAMINATION TYPE: US chest DATE OF EXAM: 01/14/2018 COMPARISON: Radiograph 01/13/2018 CLINICAL HISTORY: 77-year-old female assess with markings bilateral for pleural effusion. Technique: Multiple sonographic images of the bilateral posterior lower hemithoraces for assessment o f pleural effusion. FINDINGS: EXAM MEASUREMENTS: Right Pleural Effusion fluid pocket: 6.0 cm A/P Right skin surface to fluid distance: 3.5 cm A/P Left Pleural Effusion fluid pocket: no fluid seen for measure Right side was marked for possible thoracentesis outside the dept. . Pulmonologists are able to review the images in the patient?s EMR. IMPRESSIONS: Small, small to moderate-sized right pleural effusion. Marking performed. No pleural effusion on the left.
--- NOTE | 2018-01-14 15:30 | PN ---
PROGRESS NOTE DATE OF SERVICE: 01/14/2018. REASON FOR FOLLOWUP: Bilateral lower extremity stress ulcer. INTERVAL HISTORY: The patient is afebrile. She has been complaining of some congested cough. No nausea. No vomiting. No abdominal pain. Oral appetite remains to be poor. Denies any pain to the right leg area. EXAMINATION: Blood pressure 100/51 with a pulse of 81, temperature 97.3. She is 97% on 2 L nasal cannula. General description is an elderly female lying in bed in no distress. Respiratory system unlabored breathing. Coarse breath sounds in the bases. No wheeze. Heart S1, S2. Regular rate and rhythm. Abdomen soft. No tenderness. Right leg wound with no slough tissue. Surrounding swelling and redness has improved. Minimal drainage. LABS: Hemoglobin 9.1, white count 4.6, BUN of 52, creatinine 1.20. DIAGNOSTIC IMPRESSION AND PLAN: 1. Patient with right lower extremity venous stasis ulcer associated with no cellulitis. Recommend local wound care to continue with Aquacel Silver dressing to be changed q.48 hours followed by moist compression dressing. 2. Left leg wound, traumatic, local care with Aquacel Silver dressing and close followup. Family present at bedside. Questions were answered. MMODL / IJN: [id number] / DAMIAN
[2018-01-14] MEDS: POLYETHYLENE GLYCOL 3350 17 GM POWD.PACK PO SCH (16:00)
[2018-01-14 16:48] LABS: Glucose,Whole Blood 228 mg/dL (75-99)
[2018-01-14] MEDS: ATORVASTATIN 20 MG TAB PO SCH (19:53)
[2018-01-14] MEDS: traZODone HCL 50 MG TAB PO SCH (19:53)
--- NOTE | 2018-01-14 20:21 | PN ---
PROGRESS NOTE This patient is admitted with symptoms of shortness of breath and currently is being treated for acute on chronic congestive cardiac failure. The patient is doing fairly well. She is currently getting the Lasix as well as the Milrinone drip. The patient had a low-grade fever this morning 99.5, patient heart rate is 100 to 120, blood pressure is 118/65 mmHg. Respirations are not labored. First and second heart sounds are normal. Lungs reveal a few basal rales. The patient's weight is down to 90 kg. Hemoglobin is 9.3, electrolytes are normal. The patient chest x-ray done yesterday still shows evidence of bilateral congestive cardiac failure ultrasound of the chest may be considered to rule out significant pleural effusion. We will continue the patient on the current medications. Patient's condition has been discussed with the family members regarding the CODE STATUS. Patient's overall prognosis is guarded. MMODL / IJN: [id number] /
[2018-01-14 20:39] LABS: Glucose,Whole Blood 229 mg/dL (75-99)
[2018-01-15] MEDS: MILRINONE-D5W PMX 20 MG in DEXTROSE/WATER 1 100ML.BAG IV SCH ×3 (04:10→22:54)
[2018-01-15 05:49] LABS: Glucose,Whole Blood 179 mg/dL (75-99)
[2018-01-15 05:50] LABS: Anisocytosis Slight; Basophils % (A) 0 %; Eosinophils # (A) 0.1 k/uL (0-0.7); Eosinophils % (A) 3 %; HCT 29.6 % (34.0-46.0); HGB 9.2 gm/dL (11.4-16.0); Lymphocytes # (A) 0.5 k/uL (1.0-4.8); Lymphocytes % (A) 13 %; MCH 30.1 pg (25.0-35.0); MCV 97.1 fL (80.0-100.0); Macrocytosis Slight; Mean Platelet Volume 8.7; Monocytes # (A) 0.3 k/uL (0-1.0); Monocytes % (A) 7 %; Neutrophils # (A) 2.9 k/uL (1.3-7.7); Neutrophils % (A) 73 %; Platelet Count 120 k/uL (150-450); RBC 3.05 m/uL (3.80-5.40); RDW 16.6 % (11.5-15.5)
[2018-01-15] MEDS: LEVOTHYROXINE 25 MCG TAB PO SCH (05:53)
[2018-01-15 06:00] LABS: Calcium 9.1 mg/dL (8.4-10.2); Magnesium 1.6 mg/dL (1.6-2.3); Potassium 3.5 mmol/L (3.5-5.1); Total Bilirubin 0.7 mg/dL (0.2-1.3); Total Protein 5.3 g/dL (6.3-8.2)
[2018-01-15] MEDS: MIDODRINE 5 MG TAB PO SCH ×3 (06:00→16:59)
[2018-01-15] MEDS: DOCUSATE 100 MG CAP PO SCH ×2 (09:42→12:57)
[2018-01-15] MEDS: ALLOPURINOL 300 MG TAB PO SCH (09:42)
[2018-01-15] MEDS: FUROSEMIDE 10 MG/ML 10 ML VIAL IV SCH ×3 (09:42→22:54)
[2018-01-15] MEDS: ASPIRIN 81 MG PO SCH (09:43)
[2018-01-15] MEDS: ESCITALOPRAM 10 MG TAB PO SCH (09:43)
[2018-01-15] MEDS: METOPROLOL TARTRATE 25 MG TAB PO SCH ×2 (09:43→20:34)
[2018-01-15] MEDS: guaiFENesin 600 MG TABLET.ER PO SCH ×2 (09:43→20:34)
[2018-01-15] MEDS: METOLAZONE 2.5 MG TAB PO SCH (09:43)
[2018-01-15] MEDS: SACUBITRIL/VALSARTAN 24 MG-26 MG TABLET PO SCH ×2 (09:44→20:34)
[2018-01-15] MEDS: INSULN ASP PRT/INSULIN ASPART 100 UNIT/ML 10 ML VIAL SQ SCH (09:46)
[2018-01-15] MEDS: PREGABALIN 50 MG CAP PO SCH ×2 (09:48→20:36)
--- NOTE | 2018-01-15 10:15 | P.PN ---
Subjective Progress Note Date: 01/15/18 Principal diagnosis: This is a 77-year-old senior care resident and was seen in consultation because of cardiorenal syndrome. Her ejection fractions 20 to 25% on echocardiogram done 01/11/2018 She is currently on Lasix 80 every 8 and Primacor drip. Urine output is in adequate. Lasix was increased from 40 mg every 8-80 yesterday. She continues to have dry cough shortness of breath and not improved she is not eating well has poor appetite and looks very ill. Currently on nasal cannula oxygen.She is bedridden for some time. Past history; She has past history significant for coronary artery disease and prior bypass surgery, patient also has history of prior stent placement, paroxysmal atrial fibrillation, ischemic cardiomyopathy with prior AICD, systolic congestive heart failure, diabetes, hypertension, hyperlipidemia kidney disease stage III, history of prior ventricular tachycardia. She currently resides at [facility]. Admitted to the hospital with symptoms of progressively worsening shortness of breath and significant peripheral edema. Objective - Vital Signs Vital signs: Vital Signs Temp 98.2 F 01/15/18 09:00 Pulse 120 H 01/15/18 09:00 Resp 18 01/15/18 09:08 BP 100/57 01/15/18 09:00 Pulse Ox 92 L 01/15/18 09:08 Intake & Output 01/14/18 01/15/18 01/15/18 18:59 06:59 18:59 Intake Total 350 100 Output Total 1250 Balance 350 -1150 Weight 85 kg Intake: Intake, IV Titration 100 100 Amount Milrinone-D5w Pmx 20 mg 100 100 In Dextrose/Water 1 100ml .bag @ 0.3 MCG/KG/MIN 8. 46 mls/hr IV .[id number] [facility] Rx#:[id number] Oral 250 Output: Urine 1250 Other: Voiding Method Diaper Diaper Incontinent Incontinent # Voids 1 1 # Bowel Movements 1 1 On examination she looks ill short of breath at rest. She is on nasal cannula oxygen A chin exam JVP is difficult to see but probably is elevated No neck stiffness no facial asymmetry Lungs are significant for bilateral fine crackles diminished air entry bilaterally Heart sounds are unremarkable for any murmur rub gallop Abdomen soft nontender Extremity exam was mild edema Neuro logically awake alert oriented but found weakness. - Labs CBC & Chem 7: 01/15/18 05:20 01/15/18 05:20 Labs: Abnormal Lab Results - Last 24 Hours (Table) 01/14/18 01/14/18 01/14/18 Range/Units 11:43 16:45 20:38 RBC (3.80-5.40) m/uL Hgb (11.4-16.0) gm/dL Hct (34.0-46.0) % RDW (11.5-15.5) % Plt Count (150-450) k/uL Lymphocytes # (1.0-4.8) k/uL BUN (7-17) mg/dL Creatinine (0.52-1.04) mg/dL Glucose (74-99) mg/dL POC Glucose (mg/dL) 130 H 228 H 229 H (75-99) mg/dL AST (14-36) U/L Alkaline Phosphatase (38-126) U/L Total Protein (6.3-8.2) g/dL Albumin (3.5-5.0) g/dL 01/15/18 01/15/18 01/15/18 Range/Units 05:20 05:20 05:47 RBC 3.05 L (3.80-5.40) m/uL Hgb 9.2 L (11.4-16.0) gm/dL Hct 29.6 L (34.0-46.0) % RDW 16.6 H (11.5-15.5) % Plt Count 120 L (150-450) k/uL Lymphocytes # 0.5 L (1.0-4.8) k/uL BUN 54 H (7-17) mg/dL Creatinine 1.20 H (0.52-1.04) mg/dL Glucose 164 H (74-99) mg/dL POC Glucose (mg/dL) 179 H (75-99) mg/dL AST 38 H (14-36) U/L Alkaline Phosphatase 183 H (38-126) U/L Total Protein 5.3 L (6.3-8.2) g/dL Albumin 3.0 L (3.5-5.0) g/dL Assessment and Plan Assessment: Impression. 1. Acute kidney injury secondary to cardiorenal syndrome on Primacor and Lasix 80 mg every 8 with metolazone and urine output of only 6 and 27 mL for the last 24 hours. Inadequate response and subjectively remained short of breath. Creatinine though is 1.2 2. Insulin-dependent diabetes. 3. History of urinary retention. On Meng catheter reinserted yesterday 2017. 4. Anemia, with iron saturation of 8% dated 01/12/2018 on Ferrlecit. 5. Chronically bedridden senior care resident. 6. Cardiomyopathy ejection fraction 20-25% with severe tricuspid regurgitation. Recommendation. 1. Maintain Lasix to 80 daily 8. IV, 2. Maintain Primacor. 3. Increase metolazone to 10 twice a day 4. Watch hemoglobin. 5. Monitor labs. 6. Discontinue the valsartan combination with Sacubitril if cardio agrees. Poor prognosis, may need Dialysis
[2018-01-15] MEDS ORDERED: METOLAZONE 2.5 MG TAB PO ONE (10:30)
[2018-01-15 12:04] LABS: Glucose,Whole Blood 165 mg/dL (75-99)
[2018-01-15] MEDS ORDERED: Magnesium Replacement Protocol 1 EACH MISC MISCELLANE PRN (12:28)
[2018-01-15] MEDS ORDERED: Potassium Replacement Protocol 1 EACH MISC MISCELLANE PRN (12:28)
[2018-01-15] MEDS: MAGNESIUM SULFATE-D5W PMX 1 GM in DEXTROSE/WATER 1 100ML.BAG IVPB SCH ×2 (12:55→14:44)
[2018-01-15] MEDS: CHOLECALCIFEROL 1,000 UNIT TAB PO SCH (12:56)
[2018-01-15] MEDS: POLYETHYLENE GLYCOL 3350 17 GM POWD.PACK PO SCH (12:57)
[2018-01-15] MEDS ORDERED: POTASSIUM CHLORIDE ER 20 MEQ TAB.ER PO SCH (13:00)
--- NOTE | 2018-01-15 13:41 | P.PN ---
Subjective No significant progress since last night. Objective - Vital Signs Vital signs: Vital Signs Temp 98.2 F 01/15/18 09:00 Pulse 104 H 01/15/18 12:10 Resp 16 01/15/18 12:10 BP 91/53 01/15/18 12:10 Pulse Ox 98 01/15/18 12:10 Intake & Output 01/14/18 01/15/18 01/15/18 18:59 06:59 18:59 Intake Total 350 100 268 Output Total 1250 Balance 350 -1150 268 Weight 85 kg Intake: Intake, IV Titration 100 100 Amount Milrinone-D5w Pmx 20 mg 100 100 In Dextrose/Water 1 100ml .bag @ 0.3 MCG/KG/MIN 8. 46 mls/hr IV .[id number] [facility] Rx#:[id number] Oral 250 268 Output: Urine 1250 Other: Voiding Method Diaper Diaper Incontinent Incontinent # Voids 1 1 # Bowel Movements 1 1 - Exam General: The patient is awake and alert, in no distress Eye: there is normal conjunctiva bilaterally. Neck: The neck is supple, there is no JVD. Cardiovascular: Normal S1-S2, no S3-S4, no murmurs. Respiratory: Lungs with diffuse crackles all over the chest Gastrointestinal: Abdomen is soft, nontender Musculoskeletal: There is +2 edema. Neurological:. Speech is normal. Skin: Skin is warm and dry both lower extremities wrapped with clean/dry dressing . - Labs CBC & Chem 7: 01/15/18 05:20 01/15/18 05:20 Labs: Abnormal Lab Results - Last 24 Hours (Table) 01/14/18 01/14/18 01/15/18 Range/Units 16:45 20:38 05:20 RBC 3.05 L (3.80-5.40) m/uL Hgb 9.2 L (11.4-16.0) gm/dL Hct 29.6 L (34.0-46.0) % RDW 16.6 H (11.5-15.5) % Plt Count 120 L (150-450) k/uL Lymphocytes # 0.5 L (1.0-4.8) k/uL BUN (7-17) mg/dL Creatinine (0.52-1.04) mg/dL Glucose (74-99) mg/dL POC Glucose (mg/dL) 228 H 229 H (75-99) mg/dL AST (14-36) U/L Alkaline Phosphatase (38-126) U/L Total Protein (6.3-8.2) g/dL Albumin (3.5-5.0) g/dL 01/15/18 01/15/18 01/15/18 Range/Units 05:20 05:47 12:00 RBC (3.80-5.40) m/uL Hgb (11.4-16.0) gm/dL Hct (34.0-46.0) % RDW (11.5-15.5) % Plt Count (150-450) k/uL Lymphocytes # (1.0-4.8) k/uL BUN 54 H (7-17) mg/dL Creatinine 1.20 H (0.52-1.04) mg/dL Glucose 164 H (74-99) mg/dL POC Glucose (mg/dL) 179 H 165 H (75-99) mg/dL AST 38 H (14-36) U/L Alkaline Phosphatase 183 H (38-126) U/L Total Protein 5.3 L (6.3-8.2) g/dL Albumin 3.0 L (3.5-5.0) g/dL Assessment and Plan Assessment: 1) acute systolic heart failure exacerbation with underlying ischemic cardiomyopathy and known EF of 20%. Patient was started on IV Lasix. Continue Zaroxolyn twice daily. Unable to monitor I's and O's closely as patient is incontinent. Nephrology and cardiology following. Currently on milrinone drip 2) chronic atrial fibrillation: Heart rate well controlled. not a candidate for anticoagulation given his recurrent falls 3) Essential hypertension: Blood pressure well-controlled 4) type 2 diabetes, continue current insulin regimen 5) chronic venous insufficiency: Creatinine at baseline 6) Obstructive uropathy: patient had 1000 mL of urine drained Tuesday evening - Repeat lab work in the morning - Replace electrolytes per protocol - Prognosis very guarded I had a prolonged discussion with patient and her family regarding CODE STATUS. I explained to the patient her current guarded prognosis. Her daughters at bedside and understands and encourage her to pursue DO NOT RESUSCITATE status. Patient said that she would like to be a full code.
[2018-01-15 16:40] LABS: Glucose,Whole Blood 193 mg/dL (75-99)
[2018-01-15] MEDS: SODIUM FERRIC GLUCONAT-SUCROSE 125 MG in SODIUM CHLORIDE 0.9% 100 ML IVPB SCH (16:58)
[2018-01-15] MEDS: METOLAZONE 5 MG TAB PO SCH (20:34)
[2018-01-15] MEDS: traZODone HCL 50 MG TAB PO SCH (20:34)
[2018-01-15] MEDS: ATORVASTATIN 20 MG TAB PO SCH (20:34)
[2018-01-15 21:03] LABS: Glucose,Whole Blood 171 mg/dL (75-99)
--- NOTE | 2018-01-15 21:58 | PN ---
PROGRESS NOTE DATE OF SERVICE: 01/15/2018. REASON FOR FOLLOWUP: Right lower extremity and left leg wound. INTERVAL HISTORY: The patient is afebrile. She is breathing slightly comfortably. Denies having any chest pain. Occasional cough. No abdominal pain. Pain to the right leg area. EXAMINATION: Blood pressure 191/55, pulse of 107, temperature 97.1. She is 91% on room air. General description is an elderly female lying in bed in no distress. RESPIRATORY SYSTEM: Unlabored breathing. Some coarse breath sounds in the bases. No wheeze. HEART: S1, S2. Regular rate and rhythm. ABDOMEN: Soft, no tenderness. EXTREMITIES: Right leg wound is currently dressed with no drainage on the dressing. LABS: Hemoglobin 9.2, white count 4.0, BUN of 44, creatinine is 1.0. DIAGNOSTIC IMPRESSION AND PLAN: Patient with bilateral lower extremity venous stasis ulcer with no cellulitis. Local wound care with Aquacel Silver. Dressing will be changed tomorrow as scheduled. No need for any systemic antibiotic therapy at this point. Continue with supportive care. MMODL / IJN: [id number] / DAMIAN
[2018-01-15] MEDS: SPIRONOLACTONE 25 MG TAB PO SCH (22:52)
[2018-01-15] MEDS: SODIUM CHLORIDE 0.9% 500 ML IV SCH (22:53)
--- NOTE | 2018-01-15 23:49 | PN ---
PROGRESS NOTE This patient is being treated for acute systolic heart failure. The patient's condition remains essentially unchanged. She is not in any acute respiratory distress. This patient remains afebrile. Blood pressure is 100/57, pulse 80, respirations are not labored. First and second heart sounds are normal. Bilateral few basal crackles are noted. The patient's has weight down to 85 kg. Hemoglobin is 9.2. Electrolytes normal. Creatinine is 1.20. Patient is currently getting IV Lasix and Milrinone drip. Plan to wean her off the Milrinone drip. From tomorrow we will add Aldactone 25 mg b.i.d. The patient's overall prognosis remains poor. This has been discussed with the family members. The patient stills remains to be FULL CODE. Chest x-ray shows about 6 cm pleural effusion on the right side. May benefit from paracentesis. MMODL / IJN: [id number] /
[2018-01-16] MEDS: LEVOTHYROXINE 25 MCG TAB PO SCH (06:04)
[2018-01-16] MEDS: MIDODRINE 5 MG TAB PO SCH ×3 (06:04→17:11)
[2018-01-16 06:23] LABS: Glucose,Whole Blood 174 mg/dL (75-99)
[2018-01-16 06:45] LABS: Anisocytosis Slight; Basophils % (A) 0 %; Eosinophils # (A) 0.1 k/uL (0-0.7); Eosinophils % (A) 3 %; HCT 33.5 % (34.0-46.0); HGB 10.5 gm/dL (11.4-16.0); Lymphocytes # (A) 0.5 k/uL (1.0-4.8); Lymphocytes % (A) 9 %; MCH 30.7 pg (25.0-35.0); MCHC 31.3 g/dL (31.0-37.0); Macrocytosis Slight; Mean Platelet Volume 7.6; Monocytes # (A) 0.3 k/uL (0-1.0); Monocytes % (A) 7 %; Neutrophils % (A) 79 %; Platelet Count 135 k/uL (150-450); RBC 3.42 m/uL (3.80-5.40); RDW 16.8 % (11.5-15.5); WBC 5.1 k/uL (3.8-10.6)
[2018-01-16 06:56] LABS: Albumin 3.2 g/dL (3.5-5.0); Calcium 9.1 mg/dL (8.4-10.2); Potassium 3.7 mmol/L (3.5-5.1); Total Bilirubin 0.9 mg/dL (0.2-1.3); Total Protein 5.7 g/dL (6.3-8.2)
--- NOTE | 2018-01-16 08:43 | P.PN ---
Subjective Patient is seen in follow-up for acute kidney injury on chronic kidney disease. Patient has chronic kidney disease stage III with baseline creatinine in the range of 1-1.1. Creatinine is 1.22 today. She is maintained on Lasix 80 mg IV 3 times daily along with metolazone 10 mg twice daily. She is also on Primacor drip. She was noted to have urinary retention with near 1 L on bladder scan and underwent straight catheterization - no further retention. Still quite edematous. She has history of systolic CHF with ejection fraction of 20-25% with severe tricuspid regurgitation. Admits to dyspnea mostly with cough. Vital signs are stable. General: The patient appeared well nourished and normally developed. HEENT: Head exam is unremarkable. Neck is without jugular venous distension. LUNGS: Lungs are clear to auscultation and percussion. Breath sounds decreased. HEART: Rate and Rhythm are regular. First and second heart sounds normal. No murmurs, rubs or gallops. ABDOMEN: Abdominal exam reveals normal bowel sounds. Non-tender and non- distended. No evidence of peritonitis. EXTREMITITES: 1+ edema. Objective - Vital Signs Vital signs: Vital Signs Temp 98.0 F 01/16/18 04:00 Pulse 112 H 01/16/18 04:00 Resp 20 01/16/18 04:00 BP 119/70 01/16/18 04:00 Pulse Ox 98 01/16/18 07:17 Intake & Output 01/15/18 01/16/18 01/16/18 18:59 06:59 18:59 Intake Total 885.535 215.699 Output Total 2305 Balance 885.535 -2089.301 Weight 87 kg Intake: IV 68 46.75 Milrinone-D5w Pmx 20 mg 68 46.75 In Dextrose/Water 1 100ml .bag @ 0.3 MCG/KG/MIN 8. 46 mls/hr IV .[id number] [facility] Rx#:[id number] Intake, IV Titration 289.535 168.949 Amount Magnesium Sulfate-D5w Pmx 200 1 gm In Dextrose/Water 1 100ml.bag @ 100 mls/hr IVPB Q1H [facility] Rx#: [id number] Milrinone-D5w Pmx 20 mg 89.535 68.949 In Dextrose/Water 1 100ml .bag @ 0.3 MCG/KG/MIN 8. 46 mls/hr IV .[id number] [facility] Rx#:[id number] Sodium Chloride 0.9% 500 100 ml @ 20 mls/hr IV .Q24H [facility] Rx#:[id number] Oral 528 0 Output: Urine 2305 Other: Voiding Method Indwelling Catheter Indwelling Catheter # Bowel Movements 1 - Labs CBC & Chem 7: 01/16/18 05:31 01/16/18 05:31 Labs: Abnormal Lab Results - Last 24 Hours (Table) 01/15/18 01/15/18 01/15/18 Range/Units 12:00 16:36 21:02 RBC (3.80-5.40) m/uL Hgb (11.4-16.0) gm/dL Hct (34.0-46.0) % RDW (11.5-15.5) % Plt Count (150-450) k/uL Lymphocytes # (1.0-4.8) k/uL Chloride (98-107) mmol/L BUN (7-17) mg/dL Creatinine (0.52-1.04) mg/dL Glucose (74-99) mg/dL POC Glucose (mg/dL) 165 H 193 H 171 H (75-99) mg/dL AST (14-36) U/L Alkaline Phosphatase (38-126) U/L Total Protein (6.3-8.2) g/dL Albumin (3.5-5.0) g/dL 01/16/18 01/16/18 01/16/18 Range/Units 05:31 05:31 06:22 RBC 3.42 L (3.80-5.40) m/uL Hgb 10.5 L (11.4-16.0) gm/dL Hct 33.5 L (34.0-46.0) % RDW 16.8 H (11.5-15.5) % Plt Count 135 L (150-450) k/uL Lymphocytes # 0.5 L (1.0-4.8) k/uL Chloride 97 L (98-107) mmol/L BUN 59 H (7-17) mg/dL Creatinine 1.22 H (0.52-1.04) mg/dL Glucose 132 H (74-99) mg/dL POC Glucose (mg/dL) 174 H (75-99) mg/dL AST 43 H (14-36) U/L Alkaline Phosphatase 217 H (38-126) U/L Total Protein 5.7 L (6.3-8.2) g/dL Albumin 3.2 L (3.5-5.0) g/dL Assessment and Plan Plan: Assessment: #1. Mild nonoliguric acute kidney injury mostly prerenal secondary to cardiorenal syndrome. Creatinine 1.22 today. Urinalysis is benign. #2. Chronic kidney disease stage III secondary to cardiorenal syndrome with baseline creatinine in the range of 1-1.1. #3. Systolic CHF with ejection fraction of 20-25% with severe tricuspid regurgitation. #4. Volume overload. #5. Insulin-dependent diabetes mellitus. #6. Urinary retention status post catheterization. #7. Anemia. Iron deficiency noted. Status post 3 doses of IV iron. Plan: Continue Lasix 80 mg IV 3 times daily. Continue metolazone 10 mg twice daily. Low-salt diet. 1.5 L fluid restriction. If continues to have persistent urinary retention, to insert Meng catheter. Repeat electrolytes in the morning. Avoid nephrotoxic agents and hypotensive episodes. With patient's underlying cardiac status, blood pressure in the 90s-100s is acceptable as long as she is asymptomatic. I do note that midodrine has been added as well. I did briefly discuss the potential need for renal replacement therapy depending on her volume status in the next couple of days. Patient will think about it.
[2018-01-16] MEDS: SACUBITRIL/VALSARTAN 24 MG-26 MG TABLET PO SCH ×2 (09:08→21:17)
[2018-01-16] MEDS: ALLOPURINOL 300 MG TAB PO SCH (09:09)
[2018-01-16] MEDS: ASPIRIN 81 MG PO SCH (09:09)
[2018-01-16] MEDS: guaiFENesin 600 MG TABLET.ER PO SCH ×2 (09:09→21:31)
[2018-01-16] MEDS: ESCITALOPRAM 10 MG TAB PO SCH (09:09)
[2018-01-16] MEDS: SPIRONOLACTONE 25 MG TAB PO SCH ×2 (09:09→21:18)
[2018-01-16] MEDS: METOPROLOL TARTRATE 25 MG TAB PO SCH ×2 (09:09→21:17)
[2018-01-16] MEDS: METOLAZONE 5 MG TAB PO SCH ×2 (09:09→21:16)
[2018-01-16] MEDS: DOCUSATE 100 MG CAP PO SCH ×2 (09:10→17:09)
[2018-01-16] MEDS: SODIUM FERRIC GLUCONAT-SUCROSE 125 MG in SODIUM CHLORIDE 0.9% 100 ML IVPB SCH (09:14)
[2018-01-16] MEDS: INSULN ASP PRT/INSULIN ASPART 100 UNIT/ML 10 ML VIAL SQ SCH (09:14)
[2018-01-16] MEDS: PREGABALIN 50 MG CAP PO SCH ×2 (09:14→21:23)
[2018-01-16] MEDS: FUROSEMIDE 10 MG/ML 10 ML VIAL IV SCH ×4 (09:21→23:57)
--- NOTE | 2018-01-16 11:36 | P.PN ---
Subjective Patient's overall condition is not improving. She continues to be severely edematous. She is on Lasix and IV milrinone drip. Objective - Vital Signs Vital signs: Vital Signs Temp 99.6 F 01/16/18 08:00 Pulse 117 H 01/16/18 08:00 Resp 20 01/16/18 08:00 BP 113/57 01/16/18 08:00 Pulse Ox 97 01/16/18 08:00 Intake & Output 01/15/18 01/16/18 01/16/18 18:59 06:59 18:59 Intake Total 885.535 215.699 Output Total 2305 Balance 885.535 -2089.301 Weight 87 kg Intake: IV 68 46.75 Milrinone-D5w Pmx 20 mg 68 46.75 In Dextrose/Water 1 100ml .bag @ 0.3 MCG/KG/MIN 8. 46 mls/hr IV .[id number] [facility] Rx#:[id number] Intake, IV Titration 289.535 168.949 Amount Magnesium Sulfate-D5w Pmx 200 1 gm In Dextrose/Water 1 100ml.bag @ 100 mls/hr IVPB Q1H [facility] Rx#: [id number] Milrinone-D5w Pmx 20 mg 89.535 68.949 In Dextrose/Water 1 100ml .bag @ 0.3 MCG/KG/MIN 8. 46 mls/hr IV .[id number] [facility] Rx#:[id number] Sodium Chloride 0.9% 500 100 ml @ 20 mls/hr IV .Q24H [facility] Rx#:[id number] Oral 528 0 Output: Urine 2305 Other: Voiding Method Indwelling Catheter Indwelling Catheter Indwelling Catheter # Bowel Movements 1 - Exam General: The patient is awake and alert, in no distress Eye: there is normal conjunctiva bilaterally. Neck: The neck is supple, there is no JVD. Cardiovascular: Normal S1-S2, no S3-S4, no murmurs. Respiratory: Lungs with diffuse crackles all over the chest Gastrointestinal: Abdomen is soft, nontender Musculoskeletal: There is +2 edema. Neurological:. Speech is normal. Skin: Skin is warm and dry both lower extremities wrapped with clean/dry dressing . - Labs CBC & Chem 7: 01/16/18 05:31 01/16/18 05:31 Labs: Abnormal Lab Results - Last 24 Hours (Table) 01/15/18 01/15/18 01/15/18 Range/Units 12:00 16:36 21:02 RBC (3.80-5.40) m/uL Hgb (11.4-16.0) gm/dL Hct (34.0-46.0) % RDW (11.5-15.5) % Plt Count (150-450) k/uL Lymphocytes # (1.0-4.8) k/uL Chloride (98-107) mmol/L BUN (7-17) mg/dL Creatinine (0.52-1.04) mg/dL Glucose (74-99) mg/dL POC Glucose (mg/dL) 165 H 193 H 171 H (75-99) mg/dL AST (14-36) U/L Alkaline Phosphatase (38-126) U/L Total Protein (6.3-8.2) g/dL Albumin (3.5-5.0) g/dL 01/16/18 01/16/18 01/16/18 Range/Units 05:31 05:31 06:22 RBC 3.42 L (3.80-5.40) m/uL Hgb 10.5 L (11.4-16.0) gm/dL Hct 33.5 L (34.0-46.0) % RDW 16.8 H (11.5-15.5) % Plt Count 135 L (150-450) k/uL Lymphocytes # 0.5 L (1.0-4.8) k/uL Chloride 97 L (98-107) mmol/L BUN 59 H (7-17) mg/dL Creatinine 1.22 H (0.52-1.04) mg/dL Glucose 132 H (74-99) mg/dL POC Glucose (mg/dL) 174 H (75-99) mg/dL AST 43 H (14-36) U/L Alkaline Phosphatase 217 H (38-126) U/L Total Protein 5.7 L (6.3-8.2) g/dL Albumin 3.2 L (3.5-5.0) g/dL Assessment and Plan Assessment: 1) acute systolic heart failure exacerbation with underlying ischemic cardiomyopathy and known EF of 20%. Patient was started on IV Lasix. Continue Zaroxolyn twice daily. Unable to monitor I's and O's closely as patient is incontinent. Nephrology and cardiology following. Currently on milrinone drip 2) chronic atrial fibrillation: Heart rate well controlled. not a candidate for anticoagulation given his recurrent falls 3) Essential hypertension: Blood pressure well-controlled 4) type 2 diabetes, continue current insulin regimen 5) chronic venous insufficiency: Creatinine at baseline 6) Obstructive uropathy: patient had 1000 mL of urine drained Tuesday evening - Repeat lab work in the morning - Replace electrolytes per protocol - Prognosis very guarded I had a prolonged discussion with patient and her family regarding CODE STATUS. I explained to the patient her current guarded prognosis. Patient's appears to have a very poor understanding of her overall condition. With her current presentation I doubt that she has capacity of making medical decisions. Her daughter care, which is her DURABLE POWER OF ACCOUNTING COORDINATOR, elected to change CODE STATUS to DO NOT RESUSCITATE/DO NOT INTUBATE
[2018-01-16 11:49] LABS: Glucose,Whole Blood 216 mg/dL (75-99)
[2018-01-16] MEDS: CHOLECALCIFEROL 1,000 UNIT TAB PO SCH (12:05)
--- NOTE | 2018-01-16 13:00 | P.PN ---
Subjective Progress Note Date: 01/16/18 Principal diagnosis: CHF This is a pleasant 77-year-old female who follows regularly with Dr. Wall in the office. She has past history significant for coronary artery disease and prior bypass surgery, patient also has history of prior stent placement, paroxysmal atrial fibrillation, ischemic cardiomyopathy with prior AICD, systolic congestive heart failure, diabetes, hypertension, hyperlipidemia kidney disease stage III, history of prior ventricular tachycardia. She currently resides at [facility]. Admitted to the hospital with symptoms of progressively worsening shortness of breath and significant peripheral edema. According to the daughter over the past 2 weeks or more the symptoms have been worsening. According to the daughter, they've been giving her metolazone twice a day. Of her Lasix, and she still has continued to put on weight. For this reason she came to the emergency room for further evaluation. EKG on arrival shows a normal sinus rhythm with nonspecific ST-T wave changes. Chest x-ray shows mild congestive heart failure with right pleural effusion. Blood pressure 110/68 with a heart rate in the 60s, respirations 18. White blood cell count 6.6, hemoglobin 10.5, platelet count 141. Sodium 141, potassium 4.4, BUN 52, creatinine 1.1. Mag 1.8. Troponins 0.09, 0.07, 0.07. BNP level 20,400. Patient was initiated on IV Lasix in the emergency room, continued on Zaroxolyn 2.5 twice a day. 01/12/2018 Patient was seen and examined this morning, diuresing well through the night last night, apparently she did have to be straight cathed twice. Overall is feeling better just feels extremely sleepy today. At pressure 106/56 with a heart rate in the 70s to 80s. White blood cell count 4.3, hemoglobin 8.9, platelet count 128. Sodium 140, potassium 3.8, BUN 50, creatinine 1.1. 01/13/2018 Patient seen and examined today, chest x-ray does show progressive congestive heart failure. Patient's dose of Lasix was increased today we will continue the milrinone. Hemoglobin 9.5 today, potassium 3.9, BUN 50, creatinine 1.1. She is feeling somewhat better today overall. 01/16/2018 Patient seen and examined this morning, sitting up in the chair at bedside today. She continues to diurese well although her weight is documented to be up 2 kg today. White blood cell count 5.1, hemoglobin 10.5, platelet count 135. Sodium 138, potassium 3.7, BUN 59, creatinine 1.2. Patient states that she feels about the same, no significant improvement. She continues at this point to be a full code in spite of the fact that it's been discussed several times. We will gradually come down on the milrinone drip, continue to monitor her intake and outputs along with daily weights. Objective - Vital Signs Vital signs: Vital Signs Temp 98.8 F 01/16/18 11:36 Pulse 96 01/16/18 11:36 Resp 20 01/16/18 11:36 BP 92/55 01/16/18 11:36 Pulse Ox 95 01/16/18 11:36 Intake & Output 01/15/18 01/16/18 01/16/18 18:59 06:59 18:59 Intake Total 885.535 215.699 Output Total 2305 Balance 885.535 -2089.301 Weight 87 kg Intake: IV 68 46.75 Milrinone-D5w Pmx 20 mg 68 46.75 In Dextrose/Water 1 100ml .bag @ 0.3 MCG/KG/MIN 8. 46 mls/hr IV .[id number] [facility] Rx#:[id number] Intake, IV Titration 289.535 168.949 Amount Magnesium Sulfate-D5w Pmx 200 1 gm In Dextrose/Water 1 100ml.bag @ 100 mls/hr IVPB Q1H [facility] Rx#: [id number] Milrinone-D5w Pmx 20 mg 89.535 68.949 In Dextrose/Water 1 100ml .bag @ 0.3 MCG/KG/MIN 8. 46 mls/hr IV .[id number] [facility] Rx#:[id number] Sodium Chloride 0.9% 500 100 ml @ 20 mls/hr IV .Q24H [facility] Rx#:[id number] Oral 528 0 Output: Urine 2305 Other: Voiding Method Indwelling Catheter Indwelling Catheter Indwelling Catheter # Bowel Movements 1 - Exam PHYSICAL EXAMINATION: HEENT: Head is atraumatic, normocephalic. Pupils equal, round. Neck is supple. There is elevated jugular venous pressure. HEART EXAMINATION: Heart S1 and S2 systolic ejection murmur is heard. CHEST EXAMINATION: Lungs reveal rales to bilateral bases with diminished air entry to the bases. ABDOMEN: Soft, mildly distended, mild tenderness noted . Bowel sounds are heard. . EXTREMITIES:[ 2+ peripheral pulses with evidence of peripheral edema , bilateral dressings in place to the lower extremities. NEUROLOGIC patient is awake, sleepy, oriented 3 - Labs CBC & Chem 7: 01/16/18 05:31 01/16/18 05:31 Labs: Abnormal Lab Results - Last 24 Hours (Table) 01/15/18 01/15/18 01/16/18 Range/Units 16:36 21:02 05:31 RBC 3.42 L (3.80-5.40) m/uL Hgb 10.5 L (11.4-16.0) gm/dL Hct 33.5 L (34.0-46.0) % RDW 16.8 H (11.5-15.5) % Plt Count 135 L (150-450) k/uL Lymphocytes # 0.5 L (1.0-4.8) k/uL Chloride (98-107) mmol/L BUN (7-17) mg/dL Creatinine (0.52-1.04) mg/dL Glucose (74-99) mg/dL POC Glucose (mg/dL) 193 H 171 H (75-99) mg/dL AST (14-36) U/L Alkaline Phosphatase (38-126) U/L Total Protein (6.3-8.2) g/dL Albumin (3.5-5.0) g/dL 01/16/18 01/16/18 01/16/18 Range/Units 05:31 06:22 11:44 RBC (3.80-5.40) m/uL Hgb (11.4-16.0) gm/dL Hct (34.0-46.0) % RDW (11.5-15.5) % Plt Count (150-450) k/uL Lymphocytes # (1.0-4.8) k/uL Chloride 97 L (98-107) mmol/L BUN 59 H (7-17) mg/dL Creatinine 1.22 H (0.52-1.04) mg/dL Glucose 132 H (74-99) mg/dL POC Glucose (mg/dL) 174 H 216 H (75-99) mg/dL AST 43 H (14-36) U/L Alkaline Phosphatase 217 H (38-126) U/L Total Protein 5.7 L (6.3-8.2) g/dL Albumin 3.2 L (3.5-5.0) g/dL Assessment and Plan Assessment: Assessment and plan #1 systolic congestive heart failure acute on chronic #2 acute on chronic renal failure #3 coronary artery disease with prior bypass surgery and PCI #4 diabetes #5 hypertension #6 ischemic cardiomyopathy with prior AICD #7 hyperlipidemia #8 peripheral vascular disease #9 paroxysmal atrial fibrillation, on Eliquis for anticoagulation Plan From cardiology's perspective, we will recommend to wean down the milrinone drip gradually, continue to monitor intake and output along with daily weights and daily lytes BUN and creatinine. Overall prognosis continues to be guarded. DNP note has been reviewed, I agree with a documented findings and plan of care. Patient was seen and examined.
--- NOTE | 2018-01-16 13:05 | P.PN ---
Progress Note - Text Progress Note Date: 01/16/18 This is an addendum to the cardiology progress note dictated today. Patient was noted on ultrasound of the chest to have a 6.0 right pleural effusion pocket , she may benefit from thoracentesis, suggest pulmonary consultation. DNP note has been reviewed, I agree with a documented findings and plan of care. Patient was seen and examined.
[2018-01-16] MEDS: POLYETHYLENE GLYCOL 3350 17 GM POWD.PACK PO SCH (16:17)
[2018-01-16 16:53] LABS: Glucose,Whole Blood 171 mg/dL (75-99)
[2018-01-16] MEDS: MILRINONE-D5W PMX 20 MG in DEXTROSE/WATER 1 100ML.BAG IV SCH ×2 (18:41→19:55)
[2018-01-16 21:14] LABS: Glucose,Whole Blood 180 mg/dL (75-99)
[2018-01-16] MEDS: traZODone HCL 50 MG TAB PO SCH (21:17)
[2018-01-16] MEDS: ATORVASTATIN 20 MG TAB PO SCH (21:17)
[2018-01-16] MEDS: SODIUM CHLORIDE 0.9% 500 ML IV SCH (21:18)
--- NOTE | 2018-01-16 23:11 | PN ---
PROGRESS NOTE DATE OF SERVICE: 01/16/2018 REASON FOR FOLLOWUP: Bilateral lower extremity venostasis ulcers. INTERVAL HISTORY: The patient is afebrile. She has been breathing comfortably. Denies having any chest pain. Occasional cough. No abdominal pain or any pain in her right leg area. PHYSICAL EXAMINATION: Blood pressure is 125/69 with a pulse of 110, temperature of 98. She is 100% on 2 L nasal cannula. General description is an elderly female lying in bed in no distress. RESPIRATORY SYSTEM: Unlabored breathing. Clear to auscultation anteriorly. HEART: S1, S2. Regular rate and rhythm. ABDOMEN: Soft. No tenderness. Right leg wound was examined. Overall wound has decreased in size with no slough tissue. No surrounding erythema or any foul-smelling drainage. LABS: BUN of 59, creatinine 1.22. DIAGNOSTIC IMPRESSION AND PLAN: Patient with bilateral lower extremity venostasis ulcers, right greater than the left. Local care to continue with Aquacel Silver dressing. It should be left intact for a week and should be changed if it gets wet. This was explained to the RN. No need for any systemic antibiotic therapy. Continue with supportive care. MMODL / IJN: [id number] /
[2018-01-17] MEDS: LEVOTHYROXINE 25 MCG TAB PO SCH (05:59)
[2018-01-17] MEDS: MIDODRINE 5 MG TAB PO SCH ×3 (06:00→17:27)
[2018-01-17 06:12] LABS: Glucose,Whole Blood 122 mg/dL (75-99)
[2018-01-17 06:53] LABS: Calcium 8.9 mg/dL (8.4-10.2); Magnesium 1.9 mg/dL (1.6-2.3); Potassium 3.5 mmol/L (3.5-5.1)
[2018-01-17] MEDS: ALLOPURINOL 300 MG TAB PO SCH (08:30)
[2018-01-17] MEDS: SPIRONOLACTONE 25 MG TAB PO SCH ×2 (08:30→22:08)
[2018-01-17] MEDS: ASPIRIN 81 MG PO SCH (08:31)
[2018-01-17] MEDS: ESCITALOPRAM 10 MG TAB PO SCH (08:31)
[2018-01-17] MEDS: DOCUSATE 100 MG CAP PO SCH ×2 (08:31→15:36)
[2018-01-17] MEDS: CHOLECALCIFEROL 1,000 UNIT TAB PO SCH (08:32)
[2018-01-17] MEDS: SACUBITRIL/VALSARTAN 24 MG-26 MG TABLET PO SCH ×2 (08:32→22:07)
[2018-01-17] MEDS: guaiFENesin 600 MG TABLET.ER PO SCH ×2 (08:32→22:09)
[2018-01-17] MEDS: METOLAZONE 5 MG TAB PO SCH ×2 (08:33→22:07)
[2018-01-17] MEDS: INSULN ASP PRT/INSULIN ASPART 100 UNIT/ML 10 ML VIAL SQ SCH (08:34)
[2018-01-17] MEDS: METOPROLOL TARTRATE 25 MG TAB PO SCH ×2 (08:34→22:09)
[2018-01-17] MEDS: MILRINONE-D5W PMX 20 MG in DEXTROSE/WATER 1 100ML.BAG IV SCH ×2 (08:35→13:51)
[2018-01-17] MEDS: PREGABALIN 50 MG CAP PO SCH ×2 (08:45→21:48)
[2018-01-17 11:40] LABS: Glucose,Whole Blood 86 mg/dL (75-99)
[2018-01-17] MEDS: FUROSEMIDE 10 MG/ML 10 ML VIAL IV SCH ×2 (11:43→22:07)
--- NOTE | 2018-01-17 12:15 | PN ---
PROGRESS NOTE DATE OF SERVICE: 01/17/2018 REASON FOR FOLLOWUP: Bilateral extremity venostasis ulcer. INTERVAL HISTORY: The patient is afebrile, she is breathing comfortably. Denies having any chest pain, cough. No abnormal pain. Only pain in the right leg area. PHYSICAL EXAMINATION: Blood pressure 133/57, pulse of 108. temperature 98.7. She is 97% on 2 L nasal cannula. General description is an elderly female. lying in bed in no distress. RESPIRATORY SYSTEM: Unlabored breathing, decreased breath sounds with no wheeze. HEART: S1, S2. Regular rate and rhythm. ABDOMEN: Soft, no tenderness. Right leg wound is dressed. No obvious drainage on the dressing. LABS: BUN of 53, creatinine 1.45. DIAGNOSTIC IMPRESSION AND PLAN: Patient with bilateral lower extremity venostasis ulcers, no cellulitis. Local wound care to continue with Aquacel silver dressing. The patient will continue on . No need for any systemic antibiotic therapy. Daughter present at bedside, questions were answered. MMODL / IJN: [id number] /
--- NOTE | 2018-01-17 12:39 | P.PN ---
Subjective Patient's overall condition is not improving. She continues to be severely edematous. She is on Lasix IV as directed by nephrology Objective - Vital Signs Vital signs: Vital Signs Temp 97.7 F 01/17/18 08:00 Pulse 101 H 01/17/18 12:00 Resp 18 01/17/18 12:00 BP 96/50 01/17/18 12:00 Pulse Ox 100 01/17/18 12:00 Intake & Output 01/16/18 01/17/18 01/17/18 18:59 06:59 18:59 Intake Total 248 240 72.558 Output Total 600 250 Balance -352 -10 72.558 Weight 85.5 kg Intake: IV 68 60 Milrinone-D5w Pmx 20 mg 68 60 In Dextrose/Water 1 100ml .bag @ 0.3 MCG/KG/MIN 8. 46 mls/hr IV .[id number] CLAUDIO Rx#:[id number] Intake, IV Titration 180 180 72.558 Amount Milrinone-D5w Pmx 20 mg 60 72.558 In Dextrose/Water 1 100ml .bag @ 0.2 MCG/KG/MIN 5. 22 mls/hr IV .[id number] CLAUDIO Rx#:[id number] Sodium Chloride 0.9% 500 80 120 ml @ 20 mls/hr IV .Q24H CLAUDIO Rx#:[id number] Sodium Ferric Gluconat- 100 Sucrose 125 mg In Sodium Chloride 0.9% 100 ml @ 100 mls/hr IVPB DAILY CLAUDIO Rx#:[id number] Oral 0 0 Output: Urine 600 250 Other: Voiding Method Indwelling Catheter Indwelling Catheter Indwelling Catheter # Bowel Movements 1 1 - Exam General: The patient is awake and alert, in no distress Eye: there is normal conjunctiva bilaterally. Neck: The neck is supple, there is no JVD. Cardiovascular: Normal S1-S2, no S3-S4, no murmurs. Respiratory: Lungs with diffuse crackles all over the chest Gastrointestinal: Abdomen is soft, nontender Musculoskeletal: There is +2 edema. Neurological:. Speech is normal. Skin: Skin is warm and dry both lower extremities wrapped with clean/dry dressing . - Labs CBC & Chem 7: 01/16/18 05:31 01/17/18 05:49 Labs: Abnormal Lab Results - Last 24 Hours (Table) 01/16/18 01/16/18 01/17/18 Range/Units 16:47 21:12 05:49 BUN 63 H (7-17) mg/dL Creatinine 1.45 H (0.52-1.04) mg/dL Glucose 113 H (74-99) mg/dL POC Glucose (mg/dL) 171 H 180 H (75-99) mg/dL 01/17/18 Range/Units 06:11 BUN (7-17) mg/dL Creatinine (0.52-1.04) mg/dL Glucose (74-99) mg/dL POC Glucose (mg/dL) 122 H (75-99) mg/dL Assessment and Plan Assessment: 1) acute systolic heart failure exacerbation with underlying ischemic cardiomyopathy and known EF of 20%. Patient was started on IV Lasix. Continue Zaroxolyn twice daily. Unable to monitor I's and O's closely as patient is incontinent. Nephrology and cardiology following. Currently on milrinone drip 2) chronic atrial fibrillation: Heart rate well controlled. not a candidate for anticoagulation given his recurrent falls 3) Essential hypertension: Blood pressure well-controlled 4) type 2 diabetes, continue current insulin regimen 5) chronic venous insufficiency: Creatinine at baseline 6) Obstructive uropathy: patient had 1000 mL of urine drained Tuesday evening 7) and said the pleural effusion: Pulmonology consulted to evaluate whether patient benefit from thoracentesis - Repeat lab work in the morning - Replace electrolytes per protocol - Prognosis very guarded
[2018-01-17 13:16] LABS: ABG Base Excess 0.7 mmol/L; ABG HCO3 26 mmol/L (21-25); ABG Oxygen Saturation 97.8 % (94-97); ABG PCO2 45 mmHg (35-45); ABG PH 7.37 (7.35-7.45); ABG PO2 91 mmHg (83-108); ABG TCO2 27 mmol/L (19-24)
--- NOTE | 2018-01-17 14:42 | PN ---
PROGRESS NOTE Patient is seen for followup for acute kidney injury and volume overload. She is maintained on IV Lasix 80 mg q.8 hours. Her volume status has improved significantly. Patient is also maintained on Primacor drip and Zaroxolyn 10 mg b.i.d. The serum creatinine is 1.45, which is slightly up from 1.2 yesterday. The patient has not been eating much. EXAMINATION: Blood pressure is 103/57, heart rate 108 per minute. She is afebrile. Examination of the heart: S1, S2. Examination lungs: Decreased breath sounds at bases. Abdomen is soft, nontender. Examination lower extremity shows edema 1+. Chronic skin changes bilaterally. RESISTANCE BRAZER exam is grossly intact. LAB: Show serum creatinine 1.45, sodium 138, potassium 3.5, BUN 63. ASSESSMENT: 1. Acute kidney injury, cardiorenal. Volume status has improved. Renal function is slightly worse today. I will decrease the Lasix to 60 mg q.12 hours. Continue with Zaroxolyn, which we can also decrease to 10 mg daily starting tomorrow. 2. Volume overload, currently improved since admission. 3. Chronic kidney disease stage III, mainly secondary to cardiorenal syndrome. Baseline creatinine 1-1.1. 4. Systolic heart failure, ejection fraction 20-25%, acute on top of chronic. 5. Severe tricuspid regurgitation. 6. Urine retention, currently with indwelling Meng catheter. 7. Anemia with iron deficiency status post IV iron. PLAN: Decrease Lasix to 60 mg q.12 hours, decrease metolazone 10 mg daily starting from tomorrow. Continue with fluid restriction. Increased oral protein intake. Repeat labs in a.m. Avoid any other nephrotoxic agents. MMODL / IJN: [id number] /
[2018-01-17] MEDS ORDERED: MILRINONE-D5W PMX 20 MG in DEXTROSE/WATER 1 100ML.BAG IV SCH (15:15)
[2018-01-17] MEDS: POLYETHYLENE GLYCOL 3350 17 GM POWD.PACK PO SCH (15:36)
[2018-01-17] MEDS: methylPREDNISolone SOD SUCCI 40 MG/ML 1 ML VIAL IV SCH ×2 (15:42→23:51)
[2018-01-17] MEDS: ALBUTEROL NEBULIZED 2.5 MG/3 ML INHALATION SCH ×2 (16:33→20:07)
--- NOTE | 2018-01-17 16:43 | P.PN ---
Subjective Progress Note Date: 01/17/18 Principal diagnosis: CHF This is a pleasant 77-year-old female who follows regularly with Dr. Wall in the office. She has past history significant for coronary artery disease and prior bypass surgery, patient also has history of prior stent placement, paroxysmal atrial fibrillation, ischemic cardiomyopathy with prior AICD, systolic congestive heart failure, diabetes, hypertension, hyperlipidemia kidney disease stage III, history of prior ventricular tachycardia. She currently resides at [facility]. Admitted to the hospital with symptoms of progressively worsening shortness of breath and significant peripheral edema. According to the daughter over the past 2 weeks or more the symptoms have been worsening. According to the daughter, they've been giving her metolazone twice a day. Of her Lasix, and she still has continued to put on weight. For this reason she came to the emergency room for further evaluation. EKG on arrival shows a normal sinus rhythm with nonspecific ST-T wave changes. Chest x-ray shows mild congestive heart failure with right pleural effusion. Blood pressure 110/68 with a heart rate in the 60s, respirations 18. White blood cell count 6.6, hemoglobin 10.5, platelet count 141. Sodium 141, potassium 4.4, BUN 52, creatinine 1.1. Mag 1.8. Troponins 0.09, 0.07, 0.07. BNP level 20,400. Patient was initiated on IV Lasix in the emergency room, continued on Zaroxolyn 2.5 twice a day. 01/12/2018 Patient was seen and examined this morning, diuresing well through the night last night, apparently she did have to be straight cathed twice. Overall is feeling better just feels extremely sleepy today. At pressure 106/56 with a heart rate in the 70s to 80s. White blood cell count 4.3, hemoglobin 8.9, platelet count 128. Sodium 140, potassium 3.8, BUN 50, creatinine 1.1. 01/13/2018 Patient seen and examined today, chest x-ray does show progressive congestive heart failure. Patient's dose of Lasix was increased today we will continue the milrinone. Hemoglobin 9.5 today, potassium 3.9, BUN 50, creatinine 1.1. She is feeling somewhat better today overall. 01/16/2018 Patient seen and examined this morning, sitting up in the chair at bedside today. She continues to diurese well although her weight is documented to be up 2 kg today. White blood cell count 5.1, hemoglobin 10.5, platelet count 135. Sodium 138, potassium 3.7, BUN 59, creatinine 1.2. Patient states that she feels about the same, no significant improvement. She continues at this point to be a full code in spite of the fact that it's been discussed several times. We will gradually come down on the milrinone drip, continue to monitor her intake and outputs along with daily weights. 01/17/2018 Patient seen and examined this morning, continues to be extremely edematous, overall not improving significantly, she currently is a no code. Objective - Vital Signs Vital signs: Vital Signs Temp 97.7 F 01/17/18 08:00 Pulse 101 H 01/17/18 12:00 Resp 18 01/17/18 12:00 BP 96/50 01/17/18 12:00 Pulse Ox 99 01/17/18 12:00 Intake & Output 01/16/18 01/17/18 01/17/18 18:59 06:59 18:59 Intake Total 248 240 100.050 Output Total 600 250 300 Balance -352 -10 -199.950 Weight 85.5 kg Intake: IV 68 60 Milrinone-D5w Pmx 20 mg 68 60 In Dextrose/Water 1 100ml .bag @ 0.3 MCG/KG/MIN 8. 46 mls/hr IV .[id number] [facility]UDIO Rx#:[id number] Intake, IV Titration 180 180 100.050 Amount Milrinone-D5w Pmx 20 mg 60 100.050 In Dextrose/Water 1 100ml .bag @ 0.2 MCG/KG/MIN 5. 22 mls/hr IV .[id number] [facility]UDIO Rx#:[id number] Sodium Chloride 0.9% 500 80 120 ml @ 20 mls/hr IV .Q24H CLAUDIO Rx#:[id number] Sodium Ferric Gluconat- 100 Sucrose 125 mg In Sodium Chloride 0.9% 100 ml @ 100 mls/hr IVPB DAILY CLAUDIO Rx#:[id number] Oral 0 0 Output: Urine 600 250 300 Other: Voiding Method Indwelling Catheter Indwelling Catheter Indwelling Catheter # Bowel Movements 1 2 - Exam PHYSICAL EXAMINATION: HEENT: Head is atraumatic, normocephalic. Pupils equal, round. Neck is supple. There is elevated jugular venous pressure. HEART EXAMINATION: Heart S1 and S2 systolic ejection murmur is heard. CHEST EXAMINATION: Lungs reveal rales to bilateral bases with diminished air entry to the bases. ABDOMEN: Soft, mildly distended, mild tenderness noted . Bowel sounds are heard. . EXTREMITIES:[ 2+ peripheral pulses with evidence of significant peripheral edema , bilateral dressings in place to the lower extremities. NEUROLOGIC patient is awake, sleepy, oriented 3 - Labs CBC & Chem 7: 01/16/18 05:31 01/17/18 05:49 Labs: Abnormal Lab Results - Last 24 Hours (Table) 01/16/18 01/16/18 01/17/18 Range/Units 16:47 21:12 05:49 ABG HCO3 (21-25) mmol/L ABG Total CO2 (19-24) mmol/L ABG O2 Saturation (94-97) % BUN 63 H (7-17) mg/dL Creatinine 1.45 H (0.52-1.04) mg/dL Glucose 113 H (74-99) mg/dL POC Glucose (mg/dL) 171 H 180 H (75-99) mg/dL 01/17/18 01/17/18 Range/Units 06:11 13:13 ABG HCO3 26 H (21-25) mmol/L ABG Total CO2 27 H (19-24) mmol/L ABG O2 Saturation 97.8 H (94-97) % BUN (7-17) mg/dL Creatinine (0.52-1.04) mg/dL Glucose (74-99) mg/dL POC Glucose (mg/dL) 122 H (75-99) mg/dL Assessment and Plan Assessment: Assessment and plan #1 systolic congestive heart failure acute on chronic #2 acute on chronic renal failure #3 coronary artery disease with prior bypass surgery and PCI #4 diabetes #5 hypertension #6 ischemic cardiomyopathy with prior AICD #7 hyperlipidemia #8 peripheral vascular disease #9 paroxysmal atrial fibrillation, on Eliquis for anticoagulation Plan From cardiology's perspective, we will recommend to wean down the milrinone drip gradually, continue to monitor intake and output along with daily weights and daily lytes BUN and creatinine. Overall prognosis continues to be guarded. DNP note has been reviewed, I agree with a documented findings and plan of care. Patient was seen and examined.
[2018-01-17 17:10] LABS: Glucose,Whole Blood 150 mg/dL (75-99)
[2018-01-17 17:48] LABS: Appearance,Urine Turbid (Clear); Bacteria,Urine Many /hpf; Bilirubin,Urine Negative (Negative); Blood,Urine Moderate (Negative); Color,Urine Yellow; Glucose,Urine (UA) Negative (Negative); Hyaline Casts,Urine 30 /lpf (0-2); Ketones,Urine Negative (Negative); Leukocyte Esterase,Urine Large (Negative); Nitrite,Urine Negative (Negative); PH, Urine 5.5 (5.0-8.0); Protein,Urine 2+ (Negative); RBC,Urine 24 /hpf (0-5); Specific Gravity,Urine 1.018 (1.001-1.035); Urobilinogen,Urine <2.0 mg/dL (<2.0); WBC,Urine >182 /hpf (0-5)
--- NOTE | 2018-01-17 18:59 | P.CNPUL ---
History of Present Illness Consult date: 01/17/18 Reason for consult: dyspnea, cough, hypoxemia, pleural effusion Chief complaint: Shortness of breath breathing difficulty and pleural effusion History of present illness: 77-year-old morbidly obese female who was admitted into the hospital with acute exacerbation of CHF, patient is a [facility] where she was noted to have increased swelling developing over several weeks patient was admitted into the hospital for IV furosemide and IV milrinone cardiovascular services following patient was evaluated while multiple daughters are present in the room patient is somnolent and lethargic but is arousable though patient has audible wheezing some of it appears to be related to respiratory secretions she does have a cough but is very weak unable to bring up the respiratory secretions, he is being followed by renal services as well as infectious disease services, review of the data revealed that patient has a significant history of coronary artery disease status post coronary artery bypass surgery with multiple stents, also has a history of paroxysmal atrial fibrillation and ischemic cardiomyopathy she is status post AICD with prior history of ventricular tachycardia she is however a nonsmoker, her x-ray shows significant cardiomegaly no significant leukocytosis BNP level however has been more than 20 ,000 review of the most recent laboratory data revealed urine is turbid with many WBC RBCs clumps many urinary bacteria and casts are present we'll blood gas performed today reviewed which revealed mild hypercapnic hypoxic respirator failure on 2 L oxygen, medications reviewed radiographic studies during ultrasound reviewed as well, last ultrasound performed on January 14, mild to moderate right-sided pleural effusion is seen Review of Systems All systems: negative Past Medical History Past Medical History: Atrial Fibrillation, Coronary Artery Disease (CAD), Chest Pain / Angina, Heart Failure, Diabetes Mellitus, Eye Disorder, GERD/Reflux, Hyperlipidemia, Hypertension, Myocardial Infarction (AR), Osteoarthritis (OA), Pulmonary Embolus (PE), Thyroid Disorder, Vascular Disorder Additional Past Medical History / Comment(s): Ischemic cardiomyopathy, Vtach with hypomagnesemia, O2 at 2L/NC at HS, 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 Last Myocardial Infarction Date:: 2016 History of Any Multi-Drug Resistant Organisms: MRSA, Other MDRO Date of last positivie culture/infection: 04/19/11-MRSA MDRO Source:: MDRO-Right Leg; MRSA-Unknown Past Surgical History: Breast Surgery, Cholecystectomy, Coronary Bypass/CABG, Heart Catheterization, Heart Catheterization With Stent, Pacemaker, Tonsillectomy, Tubal Ligation Additional Past Surgical History / Comment(s): AICD/pacer, 3 vessel CABG 1993, 05/2017 cardiac cath with unsuccessful angioplasty diagonal branch, L leg stent done in [facility], bilateral breast reductions, L breast benign bx, R leg varicose vein stripping, bilateral lower leg debridements, PICC line now out , colonoscopy, bilateral carpal tunnel releases, laser surgery bilaterally-pt unsure for what reason. Past Anesthesia/Blood Transfusion Reactions: No Reported Reaction Additional Past Anesthesia/Blood Transfusion Reaction / Comment(s): allergic to propofol Date of Last Stent Placement:: 1993 Type of Cardiac Device: Permanent Pacemaker Device Placement Date:: 2011 upgraded per pt Past Psychological History: No Psychological Hx Reported Additional Psychological History / Comment(s): for 15 years, retired, lifelong nonsmoker, No experience, No international travel. Has a pet bird, parakeet at home, grandchildren are caring for it. No change in the home environment. Pt resides at [facility]. She is assisted into a wheelchair. She wears O2 at 2L/NC at HS. She feeds herself and needs assist with all other ADLs. Smoking Status: Never smoker Past Alcohol Use History: None Reported Past Drug Use History: None Reported - Past Family History Mother Family Medical History: CVA/TIA Additional Family Medical History / Comment(s): at age 43 of a stroke Father Family Medical History: Diabetes Mellitus Additional Family Medical History / Comment(s): age 81 Medications and Allergies Home Medications Medication Instructions Recorded Confirmed Type Allopurinol [Zyloprim] 300 mg PO DAILY@0800 04/18/17 01/10/18 History Aspirin [Adult Low Dose Aspirin EC] 81 mg PO DAILY@0800 04/18/17 01/10/18 History Levothyroxine Sodium 25 mcg PO DAILY@1800 04/18/17 01/10/18 History Nitroglycerin Sl Tabs [Nitrostat] 0.4 mg SUBLINGUAL Q5M PRN 04/18/17 01/10/18 History Cholecalciferol [Vitamin D3] 1,000 unit PO DAILY 08/11/17 01/10/18 History Ferrous Sulfate [Feosol] 325 mg PO MOWEFR@1700 08/11/17 01/10/18 History Meclizine [Antivert] 25 mg PO Q8H PRN 08/11/17 01/10/18 History Sacubitril/Valsartan [Entresto 24 1 tab PO BID 08/11/17 01/10/18 History mg-26 mg Tablet] traZODone HCL 50 mg PO HS@2000 08/11/17 01/10/18 History Docusate [Colace] 100 mg PO BID@0800,1700 09/18/17 01/10/18 History Omeprazole [PriLOSEC] 20 mg PO HS 09/18/17 01/10/18 History Polyethylene Glycol 3350 [Miralax] 17 gm PO DAILY@1600 09/18/17 01/10/18 History Atorvastatin [Lipitor] 20 mg PO HS tab 12/12/17 01/10/18 Rx Escitalopram [Lexapro] 10 mg PO DAILY tab 12/12/17 01/10/18 Rx Furosemide [Lasix] 40 mg PO DAILY tab 12/12/17 01/10/18 Rx Hydrocodone/Acetaminophen [[place] 1 tab PO Q6H PRN #40 tablet 12/12/17 01/10/18 Rx 10-325] Insuln Asp Prt/Insulin Aspart 5 unit SQ HS@2000 vial 12/12/17 01/10/18 Rx [NovoLOG MIX 70-30 VIAL] Insuln Asp Prt/Insulin Aspart 20 unit SQ DAILY@0800 vial 12/12/17 01/10/18 Rx [NovoLOG MIX 70-30 VIAL] Metoprolol Tartrate [Lopressor] 25 mg PO BID tab 12/12/17 01/10/18 Rx Midodrine [ProAmatine] 5 mg PO TID-W/MEALS #0 tab 12/12/17 01/10/18 Rx Furosemide [Lasix] 40 mg PO DIRECTED PRN 01/10/18 01/10/18 History Metolazone [Zaroxolyn] 2.5 mg PO BID 01/10/18 01/10/18 History Pregabalin [Lyrica] 50 mg PO BID 01/10/18 01/10/18 History Allergies Allergy/AdvReac Type Severity Reaction Status Date / Time Penicillins Allergy Rash/Hives Verified 01/10/18 16:55 propofol Allergy Unknown Verified 01/10/18 16:55 sulfamethoxazole AdvReac Abdominal Verified 01/10/18 16:55 [From Bactrim] Pain trimethoprim [From Bactrim] AdvReac Abdominal Verified 01/10/18 16:55 Pain Physical Exam Vitals: Vital Signs Temp Pulse Pulse Resp BP BP BP 01/17/18 16:47 104 H 01/17/18 16:34 100 01/17/18 16:00 97.6 F 72 17 92/55 01/17/18 12:00 101 H 18 96/50 01/17/18 08:00 97.7 F 108 H 18 103/57 01/17/18 04:00 97.4 F L 78 18 94/59 01/16/18 23:54 98.4 F 74 18 80/44 01/16/18 20:00 98 F 110 H 18 125/69 Pulse Ox 01/17/18 16:47 01/17/18 16:34 01/17/18 16:00 90 L 01/17/18 12:00 99 01/17/18 08:00 99 01/17/18 04:00 99 01/16/18 23:54 98 01/16/18 20:00 100 Intake and Output 01/17/18 01/17/18 01/17/18 06:59 14:59 22:59 Intake Total 240 100.050 0 Output Total 250 100 300 Balance -10 0.050 -300 Intake: IV 60 Milrinone-D5w Pmx 20 mg 60 In Dextrose/Water 1 100ml .bag @ 0.3 MCG/KG/MIN 8. 46 mls/hr IV .[id number] CLAUDIO Rx#:[id number] Intake, IV Titration 180 100.050 Amount Milrinone-D5w Pmx 20 mg 60 100.050 In Dextrose/Water 1 100ml .bag @ 0.2 MCG/KG/MIN 5. 22 mls/hr IV .[id number] CLAUDIO Rx#:[id number] Sodium Chloride 0.9% 500 120 ml @ 20 mls/hr IV .Q24H CLAUDIO Rx#:[id number] Oral 0 0 0 Output: Urine 250 100 300 Other: Voiding Method Indwelling Catheter Indwelling Catheter Indwelling Catheter # Bowel Movements 1 2 Weight 85.5 kg PHYSICAL EXAMINATION: HEENT: Head is atraumatic, normocephalic. Pupils equal, round. Neck is supple. There is elevated jugular venous pressure. HEART EXAMINATION: Heart S1 and S2 systolic ejection murmur is heard. CHEST EXAMINATION: Lungs reveal rales to bilateral bases with diminished air entry to the bases. ABDOMEN: Soft, mildly distended, mild tenderness noted . Bowel sounds are heard. . EXTREMITIES:[ 2+ peripheral pulses with evidence of significant peripheral edema , bilateral dressings in place to the lower extremities. NEUROLOGIC patient is awake, sleepy, oriented 3 Results - Laboratory Findings CBC and BMP: 01/16/18 05:31 01/17/18 05:49 ABG ABG pH 7.37 (7.35-7.45) 01/17/18 13:13 ABG pCO2 45 mmHg (35-45) 01/17/18 13:13 ABG pO2 91 mmHg (83-108) 01/17/18 13:13 ABG O2 Saturation 97.8 % (94-97) H 01/17/18 13:13 PT/INR, D-dimer PT 11.4 sec (9.0-12.0) 01/10/18 17:45 INR 1.2 (<1.2) H 01/10/18 17:45 Abnormal lab findings: Abnormal Labs 01/10/18 01/10/18 01/10/18 17:45 17:45 17:45 RBC 3.43 L Hgb 10.5 L Hct 33.6 L MCHC RDW 17.0 H Plt Count 141 L Lymphocytes # INR ABG HCO3 ABG Total CO2 ABG O2 Saturation Chloride BUN 54 H Creatinine 1.20 H Glucose 139 H POC Glucose (mg/dL) Iron Iron Saturation AST Alkaline Phosphatase 212 H Total Creatine Kinase 27 L Troponin I 0.094 H* Total Protein 6.0 L Albumin Urine Appearance Urine Protein Urine Blood Ur Leukocyte Esterase Urine RBC Urine WBC Urine WBC Clumps Urine Bacteria Hyaline Casts 01/10/18 01/10/18 01/10/18 17:45 21:15 23:35 RBC Hgb Hct MCHC RDW Plt Count Lymphocytes # INR 1.2 H ABG HCO3 ABG Total CO2 ABG O2 Saturation Chloride BUN Creatinine Glucose POC Glucose (mg/dL) 117 H Iron Iron Saturation AST Alkaline Phosphatase Total Creatine Kinase Troponin I 0.073 H* Total Protein Albumin Urine Appearance Urine Protein Urine Blood Ur Leukocyte Esterase Urine RBC Urine WBC Urine WBC Clumps Urine Bacteria Hyaline Casts 01/11/18 01/11/18 01/11/18 05:15 05:18 06:11 RBC Hgb Hct MCHC RDW Plt Count Lymphocytes # INR ABG HCO3 ABG Total CO2 ABG O2 Saturation Chloride BUN 52 H Creatinine 1.14 H Glucose 120 H POC Glucose (mg/dL) 131 H Iron Iron Saturation AST Alkaline Phosphatase Total Creatine Kinase 21 L Troponin I 0.072 H* Total Protein Albumin Urine Appearance Urine Protein Urine Blood Ur Leukocyte Esterase Urine RBC Urine WBC Urine WBC Clumps Urine Bacteria Hyaline Casts 01/11/18 01/11/18 01/11/18 11:37 16:50 21:14 RBC Hgb Hct MCHC RDW Plt Count Lymphocytes # INR ABG HCO3 ABG Total CO2 ABG O2 Saturation Chloride BUN Creatinine Glucose POC Glucose (mg/dL) 194 H 197 H 201 H Iron Iron Saturation AST Alkaline Phosphatase Total Creatine Kinase Troponin I Total Protein Albumin Urine Appearance Urine Protein Urine Blood Ur Leukocyte Esterase Urine RBC Urine WBC Urine WBC Clumps Urine Bacteria Hyaline Casts 01/12/18 01/12/18 01/12/18 05:31 05:31 05:31 RBC 3.01 L Hgb 8.9 L D Hct 29.3 L MCHC 30.6 L RDW 16.7 H Plt Count 128 L Lymphocytes # 0.5 L INR ABG HCO3 ABG Total CO2 ABG O2 Saturation Chloride BUN 50 H Creatinine 1.13 H Glucose POC Glucose (mg/dL) Iron 26 L Iron Saturation 8.97 L AST Alkaline Phosphatase 179 H Total Creatine Kinase Troponin I Total Protein 5.2 L Albumin 2.9 L Urine Appearance Urine Protein Urine Blood Ur Leukocyte Esterase Urine RBC Urine WBC Urine WBC Clumps Urine Bacteria Hyaline Casts 01/12/18 01/13/18 01/13/18 05:48 05:44 05:44 RBC 3.22 L Hgb 9.5 L Hct 31.4 L MCHC 30.4 L RDW 16.7 H Plt Count 117 L Lymphocytes # 0.6 L INR ABG HCO3 ABG Total CO2 ABG O2 Saturation Chloride BUN 50 H Creatinine 1.11 H Glucose POC Glucose (mg/dL) 102 H Iron Iron Saturation AST Alkaline Phosphatase 195 H Total Creatine Kinase Troponin I Total Protein 5.5 L Albumin 3.2 L Urine Appearance Urine Protein Urine Blood Ur Leukocyte Esterase Urine RBC Urine WBC Urine WBC Clumps Urine Bacteria Hyaline Casts 01/13/18 01/13/18 01/14/18 16:51 20:52 05:29 RBC 3.11 L Hgb 9.3 L Hct 30.0 L MCHC RDW 16.4 H Plt Count 120 L Lymphocytes # 0.6 L INR ABG HCO3 ABG Total CO2 ABG O2 Saturation Chloride BUN Creatinine Glucose POC Glucose (mg/dL) 104 H 104 H Iron Iron Saturation AST Alkaline Phosphatase Total Creatine Kinase Troponin I Total Protein Albumin Urine Appearance Urine Protein Urine Blood Ur Leukocyte Esterase Urine RBC Urine WBC Urine WBC Clumps Urine Bacteria Hyaline Casts 01/14/18 01/14/18 01/14/18 05:29 11:43 16:45 RBC Hgb Hct MCHC RDW Plt Count Lymphocytes # INR ABG HCO3 ABG Total CO2 ABG O2 Saturation Chloride BUN 52 H Creatinine 1.20 H Glucose POC Glucose (mg/dL) 130 H 228 H Iron Iron Saturation AST 37 H Alkaline Phosphatase 189 H Total Creatine Kinase Troponin I Total Protein 5.4 L Albumin 3.1 L Urine Appearance Urine Protein Urine Blood Ur Leukocyte Esterase Urine RBC Urine WBC Urine WBC Clumps Urine Bacteria Hyaline Casts 01/14/18 01/15/18 01/15/18 20:38 05:20 05:20 RBC 3.05 L Hgb 9.2 L Hct 29.6 L MCHC RDW 16.6 H Plt Count 120 L Lymphocytes # 0.5 L INR ABG HCO3 ABG Total CO2 ABG O2 Saturation Chloride BUN 54 H Creatinine 1.20 H Glucose 164 H POC Glucose (mg/dL) 229 H Iron Iron Saturation AST 38 H Alkaline Phosphatase 183 H Total Creatine Kinase Troponin I Total Protein 5.3 L Albumin 3.0 L Urine Appearance Urine Protein Urine Blood Ur Leukocyte Esterase Urine RBC Urine WBC Urine WBC Clumps Urine Bacteria Hyaline Casts 01/15/18 01/15/18 01/15/18 05:47 12:00 16:36 RBC Hgb Hct MCHC RDW Plt Count Lymphocytes # INR ABG HCO3 ABG Total CO2 ABG O2 Saturation Chloride BUN Creatinine Glucose POC Glucose (mg/dL) 179 H 165 H 193 H Iron Iron Saturation AST Alkaline Phosphatase Total Creatine Kinase Troponin I Total Protein Albumin Urine Appearance Urine Protein Urine Blood Ur Leukocyte Esterase Urine RBC Urine WBC Urine WBC Clumps Urine Bacteria Hyaline Casts 01/15/18 01/16/18 01/16/18 21:02 05:31 05:31 RBC 3.42 L Hgb 10.5 L Hct 33.5 L MCHC RDW 16.8 H Plt Count 135 L Lymphocytes # 0.5 L INR ABG HCO3 ABG Total CO2 ABG O2 Saturation Chloride 97 L BUN 59 H Creatinine 1.22 H Glucose 132 H POC Glucose (mg/dL) 171 H Iron Iron Saturation AST 43 H Alkaline Phosphatase 217 H Total Creatine Kinase Troponin I Total Protein 5.7 L Albumin 3.2 L Urine Appearance Urine Protein Urine Blood Ur Leukocyte Esterase Urine RBC Urine WBC Urine WBC Clumps Urine Bacteria Hyaline Casts 01/16/18 01/16/18 01/16/18 06:22 11:44 16:47 RBC Hgb Hct MCHC RDW Plt Count Lymphocytes # INR ABG HCO3 ABG Total CO2 ABG O2 Saturation Chloride BUN Creatinine Glucose POC Glucose (mg/dL) 174 H 216 H 171 H Iron Iron Saturation AST Alkaline Phosphatase Total Creatine Kinase Troponin I Total Protein Albumin Urine Appearance Urine Protein Urine Blood Ur Leukocyte Esterase Urine RBC Urine WBC Urine WBC Clumps Urine Bacteria Hyaline Casts 01/16/18 01/17/18 01/17/18 21:12 05:49 06:11 RBC Hgb Hct MCHC RDW Plt Count Lymphocytes # INR ABG HCO3 ABG Total CO2 ABG O2 Saturation Chloride BUN 63 H Creatinine 1.45 H Glucose 113 H POC Glucose (mg/dL) 180 H 122 H Iron Iron Saturation AST Alkaline Phosphatase Total Creatine Kinase Troponin I Total Protein Albumin Urine Appearance Urine Protein Urine Blood Ur Leukocyte Esterase Urine RBC Urine WBC Urine WBC Clumps Urine Bacteria Hyaline Casts 01/17/18 01/17/18 01/17/18 13:13 17:07 17:20 RBC Hgb Hct MCHC RDW Plt Count Lymphocytes # INR ABG HCO3 26 H ABG Total CO2 27 H ABG O2 Saturation 97.8 H Chloride BUN Creatinine Glucose POC Glucose (mg/dL) 150 H Iron Iron Saturation AST Alkaline Phosphatase Total Creatine Kinase Troponin I Total Protein Albumin Urine Appearance Turbid H Urine Protein 2+ H Urine Blood Moderate H Ur Leukocyte Esterase Large H Urine RBC 24 H Urine WBC >182 H Urine WBC Clumps Many H Urine Bacteria Many H Hyaline Casts 30 H - Diagnostic Findings Chest x-ray: report reviewed, image reviewed (Reviewed ultrasound finding as noted above) Assessment and Plan Assessment: Small right-sided pleural effusion Acute on chronic systolic heart failure with baseline ejection fraction 20% Ischemic cardiomyopathy Severe morbid obesity with component of obstructive sleep apnea likely Tracheobronchitis with the respiratory secretions difficult to expectorate Plan: We will initiate patient on BiPAP 10 and 5 at night and when necessary during the day as tolerated Patient will be started on IV steroids breathing treatments We'll repeat ultrasound of the chest if significant effusion noted to be accumulating consider doing a thoracentesis Pulmonary toilet suctioning and deep breathing Overall prognosis is poor Continue supportive care care plan discussed with her daughters at length as well as staff Further recommendations pending plan of care as per clinical response of the patient Time with Patient: Greater than 30
[2018-01-17] MEDS: BUDESONIDE 0.5 MG/2 ML NEBU INHALATION SCH (20:07)
[2018-01-17 20:57] LABS: Glucose,Whole Blood 188 mg/dL (75-99)
[2018-01-17] MEDS: traZODone HCL 50 MG TAB PO SCH (21:47)
[2018-01-17] MEDS: ATORVASTATIN 20 MG TAB PO SCH (22:09)
[2018-01-17 23:48] LABS: Glucose,Whole Blood 228 mg/dL (75-99)
[2018-01-17] MEDS: SODIUM CHLORIDE 0.9% 500 ML IV SCH (23:52)
[2018-01-18 01:01] VITALS: RESP 18
[2018-01-18 05:57] LABS: Glucose,Whole Blood 282 mg/dL (75-99)
[2018-01-18] MEDS: MIDODRINE 5 MG TAB PO SCH ×2 (06:26→12:46)
[2018-01-18] MEDS: LEVOTHYROXINE 25 MCG TAB PO SCH (06:26)
[2018-01-18 06:59] LABS: Anisocytosis Slight; Basophils % (A) 0 %; Eosinophils % (A) 0 %; HCT 31.6 % (34.0-46.0); HGB 9.7 gm/dL (11.4-16.0); Hypochromasia Marked; Lymphocytes # (A) 0.3 k/uL (1.0-4.8); Lymphocytes % (A) 6 %; MCH 30.2 pg (25.0-35.0); MCHC 30.6 g/dL (31.0-37.0); MCV 98.6 fL (80.0-100.0); Macrocytosis Slight; Mean Platelet Volume 8.3; Monocytes # (A) 0.2 k/uL (0-1.0); Monocytes % (A) 3 %; Neutrophils # (A) 4.2 k/uL (1.3-7.7); Neutrophils % (A) 90 %; Platelet Count 126 k/uL (150-450); RBC 3.21 m/uL (3.80-5.40); RDW 16.5 % (11.5-15.5); WBC 4.7 k/uL (3.8-10.6)
[2018-01-18 07:14] LABS: Calcium 9.1 mg/dL (8.4-10.2); Potassium 4.2 mmol/L (3.5-5.1)
[2018-01-18] MEDS: DOCUSATE 100 MG CAP PO SCH (07:34)
[2018-01-18] MEDS: methylPREDNISolone SOD SUCCI 40 MG/ML 1 ML VIAL IV SCH (07:35)
[2018-01-18] MEDS: ASPIRIN 81 MG PO SCH (07:35)
[2018-01-18] MEDS: guaiFENesin 600 MG TABLET.ER PO SCH (07:36)
[2018-01-18] MEDS: ALLOPURINOL 300 MG TAB PO SCH (07:36)
[2018-01-18] MEDS: ESCITALOPRAM 10 MG TAB PO SCH (07:36)
[2018-01-18] MEDS: CHOLECALCIFEROL 1,000 UNIT TAB PO SCH (07:37)
[2018-01-18] MEDS: METOPROLOL TARTRATE 25 MG TAB PO SCH (07:38)
[2018-01-18] MEDS: METOLAZONE 5 MG TAB PO SCH (07:38)
[2018-01-18] MEDS: SACUBITRIL/VALSARTAN 24 MG-26 MG TABLET PO SCH (07:39)
[2018-01-18] MEDS: PREGABALIN 50 MG CAP PO SCH (07:45)
[2018-01-18] MEDS: INSULN ASP PRT/INSULIN ASPART 100 UNIT/ML 10 ML VIAL SQ SCH (07:45)
[2018-01-18 08:49] VITALS: TEMP 97.4
[2018-01-18] MEDS: ALBUTEROL NEBULIZED 2.5 MG/3 ML INHALATION SCH ×2 (08:52→13:28)
[2018-01-18] MEDS: BUDESONIDE 0.5 MG/2 ML NEBU INHALATION SCH (08:52)
[2018-01-18 10:58] VITALS: BMI 33.0
[2018-01-18] MEDS: FUROSEMIDE 10 MG/ML 10 ML VIAL IV SCH (11:14)
--- NOTE | 2018-01-18 11:27 | PN ---
PROGRESS NOTE DATE OF SERVICE: 01/18/2018. REASON FOR FOLLOWUP VISIT: Bilateral lower extremity venous stasis ulcer and no cellulitis. INTERVAL HISTORY: The patient is afebrile. She is more awake alert, breathing comfortably. No chest pain. No cough. No abdominal pain or any pain to the right leg area. EXAMINATION: Blood pressure 124/58, pulse of 95, temperature 97.4. She is 97% on 2 L nasal cannula. General description is a middle-aged female, lying in bed in no distress. Respiratory system: Unlabored breathing, some coarse breath sounds at the bases. No wheeze. Heart S1, S2. Regular rate and rhythm. Abdomen soft, no tenderness. Right leg wounds currently dressed up. No obvious drainage on the dressing. LABS: White count 4.7, creatinine 1.50. DIAGNOSTIC IMPRESSION AND PLAN: Patient with bilateral extremity venous stasis ulcer, no cellulitis. Local wound care. Aquacel silver dressing that will be changed on Tuesday unless it gets wet. No need for antibiotic as no evidence of any cellulitis. Continue supportive care. MMODL / IJN: [id number] /
[2018-01-18 11:36] LABS: Glucose,Whole Blood 354 mg/dL (75-99)
[2018-01-18] MEDS: SPIRONOLACTONE 25 MG TAB PO SCH (11:46)
--- NOTE | 2018-01-18 12:00 | P.DS ---
Providers Date of admission: 01/10/18 19:29 Expected date of discharge: 01/18/18 [facility] Consults: 01/10/18 19:28 Consult Physician Stat Consulting Provider: Nicole Suarez Consult Reason/Comments: Chronic renal failure Do you want consulting provider notified?: Yes 01/11/18 08:00 Consult Physician Stat Consulting Provider: Ria Pettit Consult Reason/Comments: elevated trop Do you want consulting provider notified?: Yes 01/12/18 14:59 Consult Physician Routine Consulting Provider: Yoni Mejias Consult Reason/Comments: wound management to ble Do you want consulting provider notified?: Yes 01/17/18 11:06 Consult Physician Routine Consulting Provider: Abrahan Lombardo Consult Reason/Comments: thoracentesis? Do you want consulting provider notified?: Yes Primary care physician: [facility] Hospital Course: This is a 77-year-old female with past medical history noted below significant for severe ischemic cardiomyopathy with chronic heart failure and was admitted to the hospital for acute exacerbation of heart failure and generalized anasarca. Over the past few months patient has numerous admission and has been in and out from the hospital with issues related to her heart failure, chronic lower extremity edema, and chronic bilateral lower extremity ulcers. During this admission, patient was seen and evaluated by multiple specialists including cardiology, pulmonology, and infectious disease. She was treated aggressively with IV diuresis and milrinone drip. Her overall condition continued to decline. She did not have any significant clinical improvement. We had a prolonged discussion with her family including her DURABLE POWER OF LACTATION COORDINATOR and daughter Olga. They verbalized desire to make the patient is comfortable in stopping any uncomfortable measures. They have a meeting with hospice and elected to enroll the patient in hospice. Patient will be discharged to [facility] on the [address] with hospice care. I will continue to follow up on her closely. Below is as of her medical problems at this during this hospitalization. 1) acute systolic heart failure exacerbation with underlying ischemic cardiomyopathy and known EF of 20%. 2) chronic atrial fibrillation 3) Essential hypertension 4) type 2 diabetes 5) chronic venous insufficiency 6) Obstructive uropathy: Status post Emng catheter insertion Patient Condition at Discharge: Serious Plan - Discharge Summary Discharge Rx Participant: No New Discharge Prescriptions: New LORazepam [Ativan] 1 mg PO TID PRN #20 tab PRN Reason: Agitation MORPHINE ORAL MOLLY CONC 20mg/mL [Roxanol Oral Soln Conc 20MG/ML] 10 mg PO Q4H PRN #20 ml PRN Reason: Pain Continue Levothyroxine Sodium 25 mcg PO DAILY@1800 Metoprolol Tartrate [Lopressor] 25 mg PO BID tab Midodrine [ProAmatine] 5 mg PO TID-W/MEALS #0 tab Discontinued Nitroglycerin Sl Tabs [Nitrostat] 0.4 mg SUBLINGUAL Q5M PRN PRN Reason: Chest Pain Aspirin [Adult Low Dose Aspirin EC] 81 mg PO DAILY@0800 Allopurinol [Zyloprim] 300 mg PO DAILY@0800 Cholecalciferol [Vitamin D3] 1,000 unit PO DAILY Sacubitril/Valsartan [Entresto 24 mg-26 mg Tablet] 1 tab PO BID traZODone HCL 50 mg PO HS@2000 Meclizine [Antivert] 25 mg PO Q8H PRN PRN Reason: Nausea Ferrous Sulfate [Feosol] 325 mg PO MOWEFR@1700 Omeprazole [PriLOSEC] 20 mg PO HS Polyethylene Glycol 3350 [Miralax] 17 gm PO DAILY@1600 Docusate [Colace] 100 mg PO BID@0800,1700 Atorvastatin [Lipitor] 20 mg PO HS tab Escitalopram [Lexapro] 10 mg PO DAILY tab Furosemide [Lasix] 40 mg PO DAILY tab Insuln Asp Prt/Insulin Aspart [NovoLOG MIX 70-30 VIAL] 20 unit SQ DAILY@0800 vial Insuln Asp Prt/Insulin Aspart [NovoLOG MIX 70-30 VIAL] 5 unit SQ HS@2000 vial Hydrocodone/Acetaminophen [[place] 10-325] 1 tab PO Q6H PRN #40 tablet PRN Reason: Pain Furosemide [Lasix] 40 mg PO DIRECTED PRN PRN Reason: WEIGHT GAIN Metolazone [Zaroxolyn] 2.5 mg PO BID Pregabalin [Lyrica] 50 mg PO BID Discharge Medication List Levothyroxine Sodium 25 mcg PO DAILY@1800 04/18/17 [History] Metoprolol Tartrate [Lopressor] 25 mg PO BID tab 12/12/17 [Rx] Midodrine [ProAmatine] 5 mg PO TID-W/MEALS #0 tab 12/12/17 [Rx] LORazepam [Ativan] 1 mg PO TID PRN #20 tab 01/18/18 [Rx] MORPHINE ORAL MOLLY CONC 20mg/mL [Roxanol Oral Soln Conc 20MG/ML] 10 mg PO Q4H PRN #20 ml 01/18/18 [Rx] Follow up Appointment(s)/Referral(s): Aneta Berger MD [Primary Care Provider] - 1-2 days Discharge Disposition: TRANSFER TO SNF/ECF
[2018-01-18 12:15] VITALS: BP 102/55
[2018-01-18 13:42] VITALS: PULSE 76
--- NOTE | 2018-01-18 14:21 | P.PN ---
Subjective Progress Note Date: 01/18/18 Principal diagnosis: CHF This is a pleasant 77-year-old female who follows regularly with Dr. Wall in the office. She has past history significant for coronary artery disease and prior bypass surgery, patient also has history of prior stent placement, paroxysmal atrial fibrillation, ischemic cardiomyopathy with prior AICD, systolic congestive heart failure, diabetes, hypertension, hyperlipidemia kidney disease stage III, history of prior ventricular tachycardia. She currently resides at [facility]. Admitted to the hospital with symptoms of progressively worsening shortness of breath and significant peripheral edema. According to the daughter over the past 2 weeks or more the symptoms have been worsening. According to the daughter, they've been giving her metolazone twice a day. Of her Lasix, and she still has continued to put on weight. For this reason she came to the emergency room for further evaluation. EKG on arrival shows a normal sinus rhythm with nonspecific ST-T wave changes. Chest x-ray shows mild congestive heart failure with right pleural effusion. Blood pressure 110/68 with a heart rate in the 60s, respirations 18. White blood cell count 6.6, hemoglobin 10.5, platelet count 141. Sodium 141, potassium 4.4, BUN 52, creatinine 1.1. Mag 1.8. Troponins 0.09, 0.07, 0.07. BNP level 20,400. Patient was initiated on IV Lasix in the emergency room, continued on Zaroxolyn 2.5 twice a day. 01/12/2018 Patient was seen and examined this morning, diuresing well through the night last night, apparently she did have to be straight cathed twice. Overall is feeling better just feels extremely sleepy today. At pressure 106/56 with a heart rate in the 70s to 80s. White blood cell count 4.3, hemoglobin 8.9, platelet count 128. Sodium 140, potassium 3.8, BUN 50, creatinine 1.1. 01/13/2018 Patient seen and examined today, chest x-ray does show progressive congestive heart failure. Patient's dose of Lasix was increased today we will continue the milrinone. Hemoglobin 9.5 today, potassium 3.9, BUN 50, creatinine 1.1. She is feeling somewhat better today overall. 01/16/2018 Patient seen and examined this morning, sitting up in the chair at bedside today. She continues to diurese well although her weight is documented to be up 2 kg today. White blood cell count 5.1, hemoglobin 10.5, platelet count 135. Sodium 138, potassium 3.7, BUN 59, creatinine 1.2. Patient states that she feels about the same, no significant improvement. She continues at this point to be a full code in spite of the fact that it's been discussed several times. We will gradually come down on the milrinone drip, continue to monitor her intake and outputs along with daily weights. 01/17/2018 Patient seen and examined this morning, continues to be extremely edematous, overall not improving significantly, she currently is a no code. 01/18/2018 Patient seen and examined this morning. Blood pressure 102/60 heart rate in the 70s, 94% on 2 L. Decision was made today to be placed on hospice care. Milrinone drip has been discontinued. Objective - Vital Signs Vital signs: Vital Signs Temp 97.4 F L 01/18/18 08:00 Pulse 76 01/18/18 13:40 Resp 18 01/18/18 12:00 BP 102/55 01/18/18 12:00 Pulse Ox 94 L 01/18/18 12:00 Intake & Output 01/17/18 01/18/18 01/18/18 18:59 06:59 18:59 Intake Total 100.050 99 Output Total 400 700 Balance -299.950 -700 99 Weight 82 kg 82 kg Intake: Intake, IV Titration 100.050 49 Amount Milrinone-D5w Pmx 20 mg 9 In Dextrose/Water 1 100ml .bag @ 0.1 MCG/KG/MIN 2. 56 mls/hr IV .Q24H CLAUDIO Rx #:[id number] Milrinone-D5w Pmx 20 mg 100.050 In Dextrose/Water 1 100ml .bag @ 0.2 MCG/KG/MIN 5. 22 mls/hr IV .[id number] CLAUDIO Rx#:[id number] Sodium Chloride 0.9% 500 40 ml @ 20 mls/hr IV .Q24H CLAUDIO Rx#:[id number] Oral 0 50 Output: Urine 400 700 Straight 200 Other: Voiding Method Indwelling Catheter Indwelling Catheter Indwelling Catheter # Bowel Movements 2 1 - Exam PHYSICAL EXAMINATION: HEENT: Head is atraumatic, normocephalic. Pupils equal, round. Neck is supple. There is elevated jugular venous pressure. HEART EXAMINATION: Heart S1 and S2 systolic ejection murmur is heard. CHEST EXAMINATION: Lungs reveal rales to bilateral bases with diminished air entry to the bases. ABDOMEN: Soft, mildly distended, mild tenderness noted . Bowel sounds are heard. . EXTREMITIES:[ 2+ peripheral pulses with evidence of significant peripheral edema , bilateral dressings in place to the lower extremities. NEUROLOGIC patient is awake, sleepy, oriented 3 - Labs CBC & Chem 7: 01/18/18 05:43 01/18/18 05:43 Labs: Abnormal Lab Results - Last 24 Hours (Table) 01/17/18 01/17/18 01/17/18 Range/Units 17:07 17:20 20:55 RBC (3.80-5.40) m/uL Hgb (11.4-16.0) gm/dL Hct (34.0-46.0) % MCHC (31.0-37.0) g/dL RDW (11.5-15.5) % Plt Count (150-450) k/uL Lymphocytes # (1.0-4.8) k/uL Carbon Dioxide (22-30) mmol/L BUN (7-17) mg/dL Creatinine (0.52-1.04) mg/dL Glucose (74-99) mg/dL POC Glucose (mg/dL) 150 H 188 H (75-99) mg/dL Urine Appearance Turbid H (Clear) Urine Protein 2+ H (Negative) Urine Blood Moderate H (Negative) Ur Leukocyte Esterase Large H (Negative) Urine RBC 24 H (0-5) /hpf Urine WBC >182 H (0-5) /hpf Urine WBC Clumps Many H (None) /hpf Urine Bacteria Many H (None) /hpf Hyaline Casts 30 H (0-2) /lpf 01/17/18 01/18/18 01/18/18 Range/Units 23:46 05:43 05:43 RBC 3.21 L (3.80-5.40) m/uL Hgb 9.7 L (11.4-16.0) gm/dL Hct 31.6 L (34.0-46.0) % MCHC 30.6 L (31.0-37.0) g/dL RDW 16.5 H (11.5-15.5) % Plt Count 126 L (150-450) k/uL Lymphocytes # 0.3 L (1.0-4.8) k/uL Carbon Dioxide 21 L (22-30) mmol/L BUN 72 H (7-17) mg/dL Creatinine 1.50 H (0.52-1.04) mg/dL Glucose 244 H (74-99) mg/dL POC Glucose (mg/dL) 228 H (75-99) mg/dL Urine Appearance (Clear) Urine Protein (Negative) Urine Blood (Negative) Ur Leukocyte Esterase (Negative) Urine RBC (0-5) /hpf Urine WBC (0-5) /hpf Urine WBC Clumps (None) /hpf Urine Bacteria (None) /hpf Hyaline Casts (0-2) /lpf 01/18/18 01/18/18 Range/Units 05:47 11:33 RBC (3.80-5.40) m/uL Hgb (11.4-16.0) gm/dL Hct (34.0-46.0) % MCHC (31.0-37.0) g/dL RDW (11.5-15.5) % Plt Count (150-450) k/uL Lymphocytes # (1.0-4.8) k/uL Carbon Dioxide (22-30) mmol/L BUN (7-17) mg/dL Creatinine (0.52-1.04) mg/dL Glucose (74-99) mg/dL POC Glucose (mg/dL) 282 H 354 H (75-99) mg/dL Urine Appearance (Clear) Urine Protein (Negative) Urine Blood (Negative) Ur Leukocyte Esterase (Negative) Urine RBC (0-5) /hpf Urine WBC (0-5) /hpf Urine WBC Clumps (None) /hpf Urine Bacteria (None) /hpf Hyaline Casts (0-2) /lpf Microbiology - Last 24 Hours (Table) 01/17/18 17:20 Urine Culture - Preliminary Urine,Catheterized Assessment and Plan Assessment: Assessment and plan #1 systolic congestive heart failure acute on chronic #2 acute on chronic renal failure #3 coronary artery disease with prior bypass surgery and PCI #4 diabetes #5 hypertension #6 ischemic cardiomyopathy with prior AICD #7 hyperlipidemia #8 peripheral vascular disease #9 paroxysmal atrial fibrillation, on Eliquis for anticoagulation Plan From cardiology's perspective, milrinone drip has been discontinued. Patient is now on hospice care at the [facility]. We will follow this patient with you now on an as-needed basis only, please don't hesitate to call with any questions. DNP note has been reviewed, I agree with a documented findings and plan of care. Patient was seen and examined.
--- NOTE | 2018-01-18 18:57 | PN ---
PROGRESS NOTE Patient is seen for followup for acute kidney injury. Her daughter is present at bedside and she states that they are planning to proceed with hospice care measures. Patient's volume status has improved significantly. On examination this morning, blood pressure was 124/58, heart rate 74 per minute. Patient is afebrile. EXAMINATION OF THE HEART: S1, S2. EXAMINATION OF LUNGS: Bilateral breath sounds are heard. ABDOMEN: Soft, non-tender. Examination of lower extremities shows edema trace bilaterally. [employer] exam is grossly intact. Labs show serum creatinine 1.5, sodium 137, potassium 4.2. ASSESSMENT: 1. Acute kidney injury secondary to recent diuresis. Lasix has been decreased. 2. Volume overload, now significantly improved. 3. Congestive heart failure, cardiomyopathy, maintained on inotropic agents. 4. Generalized debility. Agree with plans for comfort care measures. 5. Urine retention with Meng catheter. 6. Anemia, status post IV iron. PLAN: Decrease diuretics. Patient can be discharged from nephrology standpoint. Agree with plans for hospice care, given the underlying comorbidities. This was discussed with the daughter. MMODL / IJN: [id number] /
[2018-01-19] MEDS ORDERED: METOLAZONE 5 MG TAB PO SCH (09:00)
--- NOTE | 2018-01-19 12:20 | CDI ---
Documentation Clarification Form Date: 01/19/18 From: Fabby Ryan Admit Date: 01/10/2018 7:29:00 PM Patient Name: Shi Cam Visit Number: [id number] Discharge Date: 01/18/18 ATTENTION: The Clinical Documentation Specialists (CDI) and [facility] Coding Staff appreciate your assistance in clarifying documentation. Please respond to the clarification below the line at the bottom and electronically sign. The CDI & [facility] Coding staff will review the response and follow-up if needed. Please note: Queries are made part of the Legal Health Record. If you have any questions, please contact the author of this message via ITS. Dr. Abrahan Lombardo The patient presented with the following respiratory symptoms exacerbation of CHF, hypoxemia, hypercapnia Documentation and location in medical record included: PN 01/17 blood gas performed today reviewed which revealed mild hypercapnic hypoxic respirator failure on 2 L oxygen, Home oxygen: yes Pulse oximetry: 01/17 90 ABG/CBG: pH 7.37 pCO2 45 pHCO3 26 Continuous Pulse ox yes Vent/BiPap We will initiate patient on BiPAP 10 and 5 at night and when necessary during the day as tolerated O2 nasal cannula oxygen. In your professional opinion, can you please clarify if mild hypercapnic hypoxic respirator failure signify one of the following conditions? Acuity: Acute Chronic Acute on Chronic Acute on chronic MTDD
--- NOTE | 2018-01-19 15:44 | P.PN ---
Subjective Progress Note Date: 01/18/18 (Late entry note) Principal diagnosis: Small right-sided pleural effusion, acute on chronic systolic heart failure baseline ejection a 20%, ischemic cardiomyopathy, severe morbid obesity with likely sleep disorder breathing and sleep apnea, bronchitis, acute hypoxic hypercapnic history failure likely multifactorial 01/19/2018, patient seen and evaluated examined patient remains somnolent but arousable she remains on milrinone infusion along with supplemental therapy of oxygen patient is extremely weak mons opens eyes course bronchial breath sounds are audible suggestive of excessive respiratory secretions which patient unable to expectorate she remains on IV steroids breathing treatments she has been attempted on BiPAP but couldn't tolerate for extended period time, family has expressed their wishes and desire for comfort measures patient likely will be evaluated for hospice later on today given and respecting patient's and family wishes would cancel the ultrasound of the chest for pleural effusion as well as DC the BiPAP continue supportive care follow clinical course closely Objective - Vital Signs Vital signs: Vital Signs Temp 97.4 F L 01/18/18 08:00 Pulse 76 01/18/18 13:40 Resp 18 01/18/18 12:00 BP 102/55 01/18/18 12:00 Pulse Ox 94 L 01/18/18 12:00 Intake & Output 01/18/18 01/19/18 01/19/18 18:59 06:59 18:59 Intake Total 99 Balance 99 Weight 82 kg Intake: Intake, IV Titration 49 Amount Milrinone-D5w Pmx 20 mg 9 In Dextrose/Water 1 100ml .bag @ 0.1 MCG/KG/MIN 2. 56 mls/hr IV .Q24H [facility] Rx #:[id number] Sodium Chloride 0.9% 500 40 ml @ 20 mls/hr IV .Q24H CLAUDIO Rx#:[id number] Oral 50 Other: Voiding Method Indwelling Catheter - Exam PHYSICAL EXAMINATION: HEENT: Head is atraumatic, normocephalic. Pupils equal, round. Neck is supple. There is elevated jugular venous pressure. HEART EXAMINATION: Heart S1 and S2 systolic ejection murmur is heard. CHEST EXAMINATION: Lungs reveal rales to bilateral bases with diminished air entry to the bases. ABDOMEN: Soft, mildly distended, mild tenderness noted . Bowel sounds are heard. . EXTREMITIES:[ 2+ peripheral pulses with evidence of significant peripheral edema , bilateral dressings in place to the lower extremities. NEUROLOGIC patient is awake, sleepy, oriented 3, but severity slow to respond, overall neurological status have appeared to be deteriorated from yesterday - Labs CBC & Chem 7: 01/18/18 05:43 01/18/18 05:43 Labs: Microbiology - Last 24 Hours (Table) 01/17/18 17:20 Urine Culture - Preliminary Urine,Catheterized Gram Neg Bacilli Gram Neg Bacilli#2 Assessment and Plan Assessment: Small right-sided pleural effusion Acute hypoxic and hypercapnic history failure with slow progressive deterioration Acute on chronic systolic heart failure with baseline ejection fraction 20% Ischemic cardiomyopathy Severe morbid obesity with component of obstructive sleep apnea likely Tracheobronchitis with the respiratory secretions difficult to expectorate Plan: We will discontinue BiPAP 10 and 5 at night Patient can be continued on IV steroids breathing treatments for now We'll cancel ultrasound of the chest Pulmonary toilet suctioning and deep breathing as tolerated Overall prognosis is poor Continue supportive care care plan discussed with her daughters at length as well as staff Further recommendations pending plan of care as per clinical response of the patient, however noted that patient is being considered for hospice likely will sign off and follow this patient on as needed basis please call us if needed Time with Patient: Greater than 30
== END 2018-01-18 14:51 | DRG 291 ==
LOC: EC 16:32 → 6SEL 19:29
PROVIDERS: ADMIT Internal Medicine; ATTEND Internal Medicine
DX: I13.0 Hypertensive heart and chronic kidney disease with heart failure and stage 1 through stage 4 chronic kidney disease, or unspecified chronic kidney disease (principal); I50.23 Acute on chronic systolic (congestive) heart failure; J96.22 Acute and chronic respiratory failure with hypercapnia; J96.21 Acute and chronic respiratory failure with hypoxia; L97.919 Non-pressure chronic ulcer of unspecified part of right lower leg with unspecified severity; L97.929 Non-pressure chronic ulcer of unspecified part of left lower leg with unspecified severity; N17.9 Acute kidney failure, unspecified; N18.3 Chronic kidney disease, stage 3 (moderate); E11.22 Type 2 diabetes mellitus with diabetic chronic kidney disease; I48.2 Chronic atrial fibrillation; R29.6 Repeated falls; I87.2 Venous insufficiency (chronic) (peripheral); I25.10 Atherosclerotic heart disease of native coronary artery without angina pectoris; K21.9 Gastro-esophageal reflux disease without esophagitis; E78.5 Hyperlipidemia, unspecified; M10.9 Gout, unspecified; E11.42 Type 2 diabetes mellitus with diabetic polyneuropathy; H40.9 Unspecified glaucoma; N13.9 Obstructive and reflux uropathy, unspecified; Z51.5 Encounter for palliative care; E11.622 Type 2 diabetes mellitus with other skin ulcer; Z66 Do not resuscitate; M19.90 Unspecified osteoarthritis, unspecified site; I48.0 Paroxysmal atrial fibrillation; D50.9 Iron deficiency anemia, unspecified; G47.33 Obstructive sleep apnea (adult) (pediatric); I07.1 Rheumatic tricuspid insufficiency; E66.01 Morbid (severe) obesity due to excess calories; I25.5 Ischemic cardiomyopathy; E11.51 Type 2 diabetes mellitus with diabetic peripheral angiopathy without gangrene; I83.029 Varicose veins of left lower extremity with ulcer of unspecified site; J40 Bronchitis, not specified as acute or chronic; R77.8 Other specified abnormalities of plasma proteins; I83.019 Varicose veins of right lower extremity with ulcer of unspecified site; R01.1 Cardiac murmur, unspecified; Z86.79 Personal history of other diseases of the circulatory system; Z88.2 Allergy status to sulfonamides; Z88.1 Allergy status to other antibiotic agents; Z79.899 Other long term (current) drug therapy; Z98.51 Tubal ligation status; Z95.1 Presence of aortocoronary bypass graft; Z88.8 Allergy status to other drugs, medicaments and biological substances; Z79.891 Long term (current) use of opiate analgesic; Z79.4 Long term (current) use of insulin; Z79.82 Long term (current) use of aspirin; Z88.0 Allergy status to penicillin; Z83.3 Family history of diabetes mellitus; Z82.3 Family history of stroke; Z86.14 Personal history of Methicillin resistant Staphylococcus aureus infection; Z99.81 Dependence on supplemental oxygen; Z90.89 Acquired absence of other organs; Z95.810 Presence of automatic (implantable) cardiac defibrillator; Z88.4 Allergy status to anesthetic agent; Z86.69 Personal history of other diseases of the nervous system and sense organs; Z87.440 Personal history of urinary (tract) infections; Z86.711 Personal history of pulmonary embolism; Z74.01 Bed confinement status; Z68.33 Body mass index [BMI] 33.0-33.9, adult; I25.2 Old myocardial infarction; Z79.890 Hormone replacement therapy; Z98.49 Cataract extraction status, unspecified eye
CPT/HCPCS: 36415; 36600; 71045; 71046; 76604; 80048; 80053; 81001; 81003; 82550; 82553; 82728; 82805; 83540; 83550; 83735; 83880; 84484; 84550; 85025; 85610; 85730; 87077; 87086; 87186; 93005; 93306; 94640; 94760; 96374; 99285